=== PATIENT | female | born 1955 | race Two or more races ===

== ENCOUNTER 2016-11-01 00:03 | Emergency (ER) | payer MEDICARE, MEDICAID ==
[~2016-11-01 00:03] MED LIST: /GLIM4TA; /GLIM4TA PO; /LANS30GR; /ONDA4TA; /PRAV20TA OR; ACET500C; ACTO30TA; ACTO30TA PO; ALLO300T; ALLO300T PO; BABY81CH; BYETTA SC; BYETTA SQ; BYSTOLIC; CETI10TA PO; DIOV160T5 OR; GLUC850T; GLUC850T PO; HYDR25TA6; INSULANT; INSULANT SC; LISI40TA; LISI40TA OR; LISI40TA PO; LYRI75CA; MAGN500T2; NITR0.4S; PAXI40TA; PREG25CA; PREV15CA; PRIL40CA PO; SIMV80TA; SIMV80TA PO; SLOWTAB OR; TRAM50TA2 PO; VICTOZA; WARF5VL PO; ZETI10TA; ZOCO80TA OR
[2016-11-01] MEDS ORDERED: KETOROLAC 30 MG/ML VIAL (J1885) As Ordered ONE (00:45)
[2016-11-01] MEDS ORDERED: dexameTHASONE 20 MG/5 ML VIAL (J1100) As Ordered ONE (03:08)
[2016-11-01] MEDS ORDERED: guaiFENesin DM LIQ 10ML UD As Ordered ONE (03:08)
--- NOTE | 2016-11-01 03:40 | EDDOCDS ---
Physician Documentation [facility] Name: Cecily Stewart Age: 61 yrs Sex: Female : 1955 Arrival Date: 11/01/2016 Time: 00:03 Bed 6 Private MD: Disposition: 11/01/16 02:50 Discharged to Home/Self Care. Impression: Acute bronchitis, Other arthritis. - Condition is Stable. - Prescriptions for dextromethorphan- guaifenesin 30-200 mg/5 mL Oral liquid - take 5 milliliter by ORAL route every 8 hours; 1 bottle. Prednisone 20 mg Oral Tablet - take 3 tablets by ORAL route once daily for 4 days; 12 tablet. - Medication Reconciliation, Local Pharmacy Hours form. - Follow up: Private Physician; When: Call to arrange an appointment; Reason: Recheck today's complaints. - Problem is an ongoing problem. - Symptoms have improved. Historical: - Allergies: no known allergies; - Home Meds: 1. allopurinol 300 mg Oral tab 1 tab once daily 2. Coreg 12.5 mg Oral tab 1 tab every 12 hours 3. fluoxetine 20 mg Oral cap 1 cap once daily 4. gabapentin 100 mg Oral cap twice a day 5. glimepiride 4 mg Oral tab 1 tab twice a day 6. hydrochlorothiazide 25 mg Oral tab 1 tab once daily 7. Lantus 100 unit/mL Sub-Q soln 90 unit twice a day 8. Novolog Mix 70-30 FlexPen 100 unit/mL (70-30) subcutaneous inpn twice a day 9. omeprazole 40 mg Oral cpDR 1 cap once daily 10. ropinirole 1 mg oral tab 1 tab nightly 11. simvastatin 80 mg Oral tab daily 12. Zyrtec 10 mg Oral tab 1 tab once daily - PMHx: born with one kidney; Diabetes - IDDM: controlled; DVT; Gout; Hypercholesterolemia; Hypertension; PE; UTI's, Frequent; - PSHx: none; - Social history: Smoking status: Patient states was never smoker of tobacco. No barriers to communication noted, The patient speaks fluent Korean. - Family history: Not pertinent. - : The pt / caregiver states he / she is not on anticoagulants. Home medication list is obtained from the patient. - Exposure Risk Screening:: None identified. Vital Signs: 11/01 00:16 BP 179 / 102 LA Supine (auto/reg); Pulse 95 MON; Resp 22 S; Temp 98.7(TE); Pulse Ox 96% cln on R/A; Weight 147.42 kg / 325.01 lbs (R); Height 5 ft. 6 in. (167.64 cm) (R); Pain 10/10; 01:14 BP 179 / 98 (auto/); mv5 01:14 Pulse 90 MON; Pulse Ox 93% ; mv5 01:29 BP 165 / 87 (auto/); mv5 01:29 Pulse 94 MON; Pulse Ox 93% ; mv5 01:44 BP 166 / 90 (auto/); mv5 01:44 Pulse 90 MON; Pulse Ox 95% ; mv5 00:16 Body Mass Index 52.46 (147.42 kg, 167.64 cm) cln MDM: 00:08 ECG WITH READING ER PHYS+CARDIAG ordered. EDMS 00:39 IV Saline Lock ordered. cs11 00:39 ketorolac 15 mg IVP once ordered. cs11 00:40 Chest, 2 View (pa\E\lat) Ordered. EDMS 00:40 D-Dimer Quant Ordered. EDMS 01:43 Financial registration complete. [facility] 02:08 [facility] Payment Agreement was scanned into [employer] and attached to record. [facility] 02:44 D-Dimer Quant Reviewed. cs11 02:49 Dexamethasone 10 mg IV at bolus once ordered. cs11 02:49 Dextromethorphan-Guaifenesin Liquid 10 mg-100 mg/5 mL 5 ml PO once ordered. cs11 Administered Medications: 00:48 Drug: ketorolac 15 mg [ketorolac 30 mg/mL (1 mL) injection solution (0.5 mL)] Route: mv5 IVP; Site: right forearm; 01:08 Follow up: Response: No Adverse Reaction mv5 03:16 Drug: Dexamethasone 10 mg [dexamethasone 4 mg/mL injection solution] Route: IV; Rate: mv5 bolus; Site: right forearm; 03:16 Drug: Dextromethorphan-Guaifenesin 5 ml [dextromethorphan-guaifenesin 10 mg-100 mg/5 mL mv5 oral liquid (5 mL)] Route: PO; 03:39 Follow up: Response: No Adverse Reaction mv5 Signatures: Dispatcher [employer] EDMS Iwona Pena RN RN mcp Schiff, Arian, DO DO cs11 Rachel Bacon Megan, RN RN mv5 The chart was reviewed and I authenticate all verbal orders and agree with the evaluation and treatment provided.Attachments: 02:08 [facility] Payment Agreement [facility] MTDD
--- NOTE | 2016-11-01 03:40 | EDDOCDS ---
Nurse's Notes [facility] Name: Cecily Stewart Age: 61 yrs Sex: Female : 1955 Arrival Date: 11/01/2016 Time: 00:03 Bed 6 Private MD: Diagnosis: Acute bronchitis;Other arthritis Presentation: 11/01 00:10 Presenting complaint: Patient states: Chest pain, ankles hurting, hands numb and hurt. [facility] Aspirin was not taken prior to arrival. Adult Sepsis Screening: The patient does not have new or worsening altered mentation. Patient's respiratory rate is less than 22. Systolic blood pressure is greater than 100. Patient has a qSOFA score of 0- Negative Sepsis Screen. Suicide/Homicide risk assessment- the patient denies having any suicidal and/or homicidal ideations and does not present with any other emotional, behavioral or mental health complaints. Status: Patient is not a in service coordinator or dependent. Transition of care: patient was not received from another setting of care. 00:10 Acuity: GEOVANNY Level 3 [facility] 00:10 Method Of Arrival: Walkin/Carried/Asstd [facility] Triage Assessment: 00:13 General: Appears uncomfortable, Behavior is cooperative. Pain: Location: chest, right mcp hand, left hand, right foot and left foot Pain currently is 10 out of 10 on a pain scale. HIV screening NA for this visit Offered previously. Neurological: No deficits noted. Cardiovascular: Chest pain is described as diffuse, radiates Does not radiate. episodes are intermittent began 3 days ago. Respiratory: Airway is patent Respiratory effort is even, unlabored. Derm: Skin is pink, warm & dry. Historical: - Allergies: no known allergies; - Home Meds: 1. allopurinol 300 mg Oral tab 1 tab once daily 2. Coreg 12.5 mg Oral tab 1 tab every 12 hours 3. fluoxetine 20 mg Oral cap 1 cap once daily 4. gabapentin 100 mg Oral cap twice a day 5. glimepiride 4 mg Oral tab 1 tab twice a day 6. hydrochlorothiazide 25 mg Oral tab 1 tab once daily 7. Lantus 100 unit/mL Sub-Q soln 90 unit twice a day 8. Novolog Mix 70-30 FlexPen 100 unit/mL (70-30) subcutaneous inpn twice a day 9. omeprazole 40 mg Oral cpDR 1 cap once daily 10. ropinirole 1 mg oral tab 1 tab nightly 11. simvastatin 80 mg Oral tab daily 12. Zyrtec 10 mg Oral tab 1 tab once daily - PMHx: born with one kidney; Diabetes - IDDM: controlled; DVT; Gout; Hypercholesterolemia; Hypertension; PE; UTI's, Frequent; - PSHx: none; - Social history: Smoking status: Patient states was never smoker of tobacco. No barriers to communication noted, The patient speaks fluent Bulgarian. - Family history: Not pertinent. - : The pt / caregiver states he / she is not on anticoagulants. Home medication list is obtained from the patient. - Exposure Risk Screening:: None identified. Screenin:25 Screening information is obtained from the patient. Fall risk: No risks identified. mv5 Assistance ADL's: requires no assistance with activities of daily living. Abuse/DV Screen: The patient / caregiver reports he/she is: not in a situation that causes fear, pain or injury. Nutritional screening: No deficits noted. home support is adequate. 03:37 Advance Directives: There is no active DNR order. mv5 Assessment: 00:25 General: Appears in no apparent distress, well nourished, Behavior is cooperative. mv5 Pain: Location: anterior aspect of right upper chest, right breast, right ankle, right Achilles, anterior aspect of right ankle, left lateral ankle, left Achilles, left medial ankle and anterior aspect of left ankle. Neurological: Level of Consciousness is awake, alert, confused, Oriented to person, place, time. Cardiovascular: Capillary refill < 3 seconds Heart tones S1 S2 Rhythm is sinus rhythm No ectopy. Derm: Skin is pink, warm & dry. 01:03 General: Pt medicated as ordered, will continue to monitor.. mv5 01:15 Reassessment: Patient states symptoms have improved. Reports chest pain has improved. mv5 Continues to c/o pain in ankles.. 01:51 General: Appears in no apparent distress, pt to xray and returned without incident.. mv5 03:16 General: Appears in no apparent distress, pt medicated as ordered. OOB to restroom mv5 independently with steady gait.. Vital Signs: 00:16 BP 179 / 102 LA Supine (auto/reg); Pulse 95 MON; Resp 22 S; Temp 98.7(TE); Pulse Ox 96% cln on R/A; Weight 147.42 kg (R); Height 5 ft. 6 in. (167.64 cm) (R); Pain 10/10; 01:14 BP 179 / 98 (auto/); mv5 01:14 Pulse 90 MON; Pulse Ox 93% ; mv5 01:29 BP 165 / 87 (auto/); mv5 01:29 Pulse 94 MON; Pulse Ox 93% ; mv5 01:44 BP 166 / 90 (auto/); mv5 01:44 Pulse 90 MON; Pulse Ox 95% ; mv5 00:16 Body Mass Index 52.46 (147.42 kg, 167.64 cm) cln Vitals: 00:14 Log In Time: November 01, 2016 at 00:05. [facility] ED Course: 00:04 Patient visited by Mary Suarez Reg. hs2 00:04 Patient moved to Waiting hs2 00:06 Patsy Fernández RN is Primary Nurse. sep 00:06 Arian Miller DO is Attending Physician. cs11 00:06 Patient visited by Arian Miller DO. cs11 00:06 Patient moved to 6 klarissa 00:11 Triage Initiated mcp 00:14 Patient visited by Iwona Pena RN. mcp 00:17 Patient visited by Anny Arellano PCA. cln 00:17 EKG done. (by ED staff). Reviewed by Arian Miller DO. cln 00:24 Patient visited by Patsy Fernández RN. mv5 00:25 The patient / caregiver is instructed regarding the plan of care and ED course. Cardiac mv5 monitor on. Pulse ox on. NIBP on. 00:25 Inserted saline lock: 20 gauge in right forearm and blood collected. The patient mv5 tolerated the procedure well. 01:03 Patient visited by Patsy Fernández RN. mv5 01:08 D-Dimer Quant Sent. mv5 01:51 Patient visited by Patsy Fernández RN. mv5 02:07 Patient name changed from Cecily\S\\S\Effner\S\ to Cecily\S\J\S\Effner. EDMS 02:08 [facility] Payment Agreement was scanned into [employer] and attached to record. [facility] 02:21 Patient visited by Patsy Fernández RN. mv5 03:37 Discontinued intact, bleeding controlled, pressure dressing applied, No mv5 redness/swelling at site. No procedures done that require assistance. Administered Medications: 00:48 Drug: ketorolac 15 mg [ketorolac 30 mg/mL (1 mL) injection solution (0.5 mL)] Route: mv5 IVP; Site: right forearm; 01:08 Follow up: Response: No Adverse Reaction mv5 03:16 Drug: Dexamethasone 10 mg [dexamethasone 4 mg/mL injection solution] Route: IV; Rate: mv5 bolus; Site: right forearm; 03:16 Drug: Dextromethorphan-Guaifenesin 5 ml [dextromethorphan-guaifenesin 10 mg-100 mg/5 mL mv5 oral liquid (5 mL)] Route: PO; 03:39 Follow up: Response: No Adverse Reaction mv5 Order Results: Lab Order: D-Dimer Quant; SPEC'M 17 00:12 Test: D-DIMER QUANT; Value: 366.2; Range: <500; Units: ng/ml; Status: F Outcome: 02:50 Discharge ordered by Provider. cs11 03:37 Discharge Assessment: Patient awake, alert and oriented x 3. No cognitive and/or mv5 functional deficits noted. Patient verbalized understanding of disposition instructions. patient administered narcotics - no. The following High Risk Discharge criteria are identified: None. Condition: stable. No special radiology studies were completed. Property sent home with patient. 03:39 Patient left the ED. mv5 Signatures: Dispatcher [employer] EDMarlene Joseph RN RN jan Peters, Mary, RN RN mcp Schiff, Craig, DO DO cs11 Rachel Bacon Hillary, Reg Reg hs2 Anny Arellano, APPLICATION PACKAGING SPECIALIST APPLICATION PACKAGING SPECIALIST Patsy Dunlap RN RN mv5 MTDD
--- NOTE | 2016-11-01 08:15 | REP ---
CHEST X-RAY: Two views. HISTORY: Cough. Comparison chest x-ray April 16, 2016. FINDINGS: EKG monitoring electrodes overlie the chest. There is a moderate dextroconvex thoracic scoliotic curve unchanged. The lungs are well inflated and clear. Pleural angles are sharp. Heart size is normal. Pulmonary vasculature is not increased. No other bony abnormality is seen. IMPRESSION: No active disease. Signed by Jhony Pond MD 11/01/2016 10:06 A
--- NOTE | 2016-11-01 09:04 | ECGEPIP ---
Stationary ECG Study [facility] - ED Test Date: 2016-11-01 Pat Name: NISHA PERALES Department: Room: - Gender: F [employer] Job Titles: roque : 1955 Requested By: THERESE DE LA GARZA Order Number: [id number] Reading MD: Lizbet Griffin Measurements Intervals [place] Rate: 94 P: 53 VA: 166 QRS: -40 QRSD: 101 T: 70 QT: 354 QTc: 444 Interpretive Statements SINUS RHYTHM MARKED LEFT AXIS DEVIATION PATTERN CONSISTENT WITH PULMONARY DISEASE NONSPECIFIC T-WAVE ABNORMALITY INCREASED RATE 04/16/16 Electronically Signed On 11-01-2016 9:03:41 EST by Lizbet Griffin
--- NOTE | 2016-11-03 04:40 | EDDOCDS ---
Physician Documentation [facility] Name: Cecily Stewart Age: 61 yrs Sex: Female : 1955 Arrival Date: 11/01/2016 Time: 00:03 Bed 6 Private MD: Disposition: 11/01/16 02:50 Discharged to Home/Self Care. Impression: Acute bronchitis, Other arthritis. - Condition is Stable. - Prescriptions for dextromethorphan- guaifenesin 30-200 mg/5 mL Oral liquid - take 5 milliliter by ORAL route every 8 hours; 1 bottle. Prednisone 20 mg Oral Tablet - take 3 tablets by ORAL route once daily for 4 days; 12 tablet. - Medication Reconciliation, Local Pharmacy Hours form. - Follow up: Private Physician; When: Call to arrange an appointment; Reason: Recheck today's complaints. - Problem is an ongoing problem. - Symptoms have improved. Historical: - Allergies: no known allergies; - Home Meds: 1. allopurinol 300 mg Oral tab 1 tab once daily 2. Coreg 12.5 mg Oral tab 1 tab every 12 hours 3. fluoxetine 20 mg Oral cap 1 cap once daily 4. gabapentin 100 mg Oral cap twice a day 5. glimepiride 4 mg Oral tab 1 tab twice a day 6. hydrochlorothiazide 25 mg Oral tab 1 tab once daily 7. Lantus 100 unit/mL Sub-Q soln 90 unit twice a day 8. Novolog Mix 70-30 FlexPen 100 unit/mL (70-30) subcutaneous inpn twice a day 9. omeprazole 40 mg Oral cpDR 1 cap once daily 10. ropinirole 1 mg oral tab 1 tab nightly 11. simvastatin 80 mg Oral tab daily 12. Zyrtec 10 mg Oral tab 1 tab once daily - PMHx: born with one kidney; Diabetes - IDDM: controlled; DVT; Gout; Hypercholesterolemia; Hypertension; PE; UTI's, Frequent; - PSHx: none; - Social history: Smoking status: Patient states was never smoker of tobacco. No barriers to communication noted, The patient speaks fluent Georgian. - Family history: Not pertinent. - : The pt / caregiver states he / she is not on anticoagulants. Home medication list is obtained from the patient. - Exposure Risk Screening:: None identified. Vital Signs: 11/01 00:16 BP 179 / 102 LA Supine (auto/reg); Pulse 95 MON; Resp 22 S; Temp 98.7(TE); Pulse Ox 96% cln on R/A; Weight 147.42 kg / 325.01 lbs (R); Height 5 ft. 6 in. (167.64 cm) (R); Pain 10/10; 01:14 BP 179 / 98 (auto/); mv5 01:14 Pulse 90 MON; Pulse Ox 93% ; mv5 01:29 BP 165 / 87 (auto/); mv5 01:29 Pulse 94 MON; Pulse Ox 93% ; mv5 01:44 BP 166 / 90 (auto/); mv5 01:44 Pulse 90 MON; Pulse Ox 95% ; mv5 00:16 Body Mass Index 52.46 (147.42 kg, 167.64 cm) cln MDM: 00:08 ECG WITH READING ER PHYS+CARDIAG ordered. EDMS 00:39 IV Saline Lock ordered. cs11 00:39 ketorolac 15 mg IVP once ordered. cs11 00:40 Chest, 2 View (pa\E\lat) Ordered. EDMS 00:40 D-Dimer Quant Ordered. EDMS 01:43 Financial registration complete. [facility] 02:08 [facility] Payment Agreement was scanned into [employer] and attached to record. [facility] 02:44 D-Dimer Quant Reviewed. cs11 02:49 Dexamethasone 10 mg IV at bolus once ordered. cs11 02:49 Dextromethorphan-Guaifenesin Liquid 10 mg-100 mg/5 mL 5 ml PO once ordered. cs11 17:06 T-Sheet-- Draft Copy was scanned into [employer] and attached to record. klr 18:27 ECG/EKG was scanned into [employer] and attached to record. kf3 Administered Medications: 00:48 Drug: ketorolac 15 mg [ketorolac 30 mg/mL (1 mL) injection solution (0.5 mL)] Route: mv5 IVP; Site: right forearm; 01:08 Follow up: Response: No Adverse Reaction mv5 03:16 Drug: Dexamethasone 10 mg [dexamethasone 4 mg/mL injection solution] Route: IV; Rate: mv5 bolus; Site: right forearm; 03:16 Drug: Dextromethorphan-Guaifenesin 5 ml [dextromethorphan-guaifenesin 10 mg-100 mg/5 mL mv5 oral liquid (5 mL)] Route: PO; 03:39 Follow up: Response: No Adverse Reaction mv5 Signatures: Dispatcher [employer] Iwona Lewis, RN RN Brian Caruso, Reg Reg kf3 Arian Miller, DO cs11 Rachel Bacon [facility] Yeny Nino Megan, RN RN mv5 The chart was reviewed and I authenticate all verbal orders and agree with the evaluation and treatment provided.Attachments: 02:08 [facility] Payment Agreement [facility] 17:06 T-Sheet-- Draft Copy r 18:27 ECG/EKG kf3 Chart Complete MTDD
--- NOTE | 2016-11-03 04:40 | EDDOCDS ---
Nurse's Notes [facility] Name: Cecily Perales Age: 61 yrs Sex: Female : 1955 Arrival Date: 11/01/2016 Time: 00:03 Bed 6 Private MD: Diagnosis: Acute bronchitis;Other arthritis Presentation: 11/01 00:10 Presenting complaint: Patient states: Chest pain, ankles hurting, hands numb and hurt. [facility] Aspirin was not taken prior to arrival. Adult Sepsis Screening: The patient does not have new or worsening altered mentation. Patient's respiratory rate is less than 22. Systolic blood pressure is greater than 100. Patient has a qSOFA score of 0- Negative Sepsis Screen. Suicide/Homicide risk assessment- the patient denies having any suicidal and/or homicidal ideations and does not present with any other emotional, behavioral or mental health complaints. Status: Patient is not a real estate services coordinator or dependent. Transition of care: patient was not received from another setting of care. 00:10 Acuity: GEOVANNY Level 3 [facility] 00:10 Method Of Arrival: Walkin/Carried/Asstd [facility] Triage Assessment: 00:13 General: Appears uncomfortable, Behavior is cooperative. Pain: Location: chest, right mcp hand, left hand, right foot and left foot Pain currently is 10 out of 10 on a pain scale. HIV screening NA for this visit Offered previously. Neurological: No deficits noted. Cardiovascular: Chest pain is described as diffuse, radiates Does not radiate. episodes are intermittent began 3 days ago. Respiratory: Airway is patent Respiratory effort is even, unlabored. Derm: Skin is pink, warm & dry. Historical: - Allergies: no known allergies; - Home Meds: 1. allopurinol 300 mg Oral tab 1 tab once daily 2. Coreg 12.5 mg Oral tab 1 tab every 12 hours 3. fluoxetine 20 mg Oral cap 1 cap once daily 4. gabapentin 100 mg Oral cap twice a day 5. glimepiride 4 mg Oral tab 1 tab twice a day 6. hydrochlorothiazide 25 mg Oral tab 1 tab once daily 7. Lantus 100 unit/mL Sub-Q soln 90 unit twice a day 8. Novolog Mix 70-30 FlexPen 100 unit/mL (70-30) subcutaneous inpn twice a day 9. omeprazole 40 mg Oral cpDR 1 cap once daily 10. ropinirole 1 mg oral tab 1 tab nightly 11. simvastatin 80 mg Oral tab daily 12. Zyrtec 10 mg Oral tab 1 tab once daily - PMHx: born with one kidney; Diabetes - IDDM: controlled; DVT; Gout; Hypercholesterolemia; Hypertension; PE; UTI's, Frequent; - PSHx: none; - Social history: Smoking status: Patient states was never smoker of tobacco. No barriers to communication noted, The patient speaks fluent Nepali. - Family history: Not pertinent. - : The pt / caregiver states he / she is not on anticoagulants. Home medication list is obtained from the patient. - Exposure Risk Screening:: None identified. Screenin:25 Screening information is obtained from the patient. Fall risk: No risks identified. mv5 Assistance ADL's: requires no assistance with activities of daily living. Abuse/DV Screen: The patient / caregiver reports he/she is: not in a situation that causes fear, pain or injury. Nutritional screening: No deficits noted. home support is adequate. 03:37 Advance Directives: There is no active DNR order. mv5 Assessment: 00:25 General: Appears in no apparent distress, well nourished, Behavior is cooperative. mv5 Pain: Location: anterior aspect of right upper chest, right breast, right ankle, right Achilles, anterior aspect of right ankle, left lateral ankle, left Achilles, left medial ankle and anterior aspect of left ankle. Neurological: Level of Consciousness is awake, alert, confused, Oriented to person, place, time. Cardiovascular: Capillary refill < 3 seconds Heart tones S1 S2 Rhythm is sinus rhythm No ectopy. Derm: Skin is pink, warm & dry. 01:03 General: Pt medicated as ordered, will continue to monitor.. mv5 01:15 Reassessment: Patient states symptoms have improved. Reports chest pain has improved. mv5 Continues to c/o pain in ankles.. 01:51 General: Appears in no apparent distress, pt to xray and returned without incident.. mv5 03:16 General: Appears in no apparent distress, pt medicated as ordered. OOB to restroom mv5 independently with steady gait.. Vital Signs: 00:16 BP 179 / 102 LA Supine (auto/reg); Pulse 95 MON; Resp 22 S; Temp 98.7(TE); Pulse Ox 96% cln on R/A; Weight 147.42 kg (R); Height 5 ft. 6 in. (167.64 cm) (R); Pain 10/10; 01:14 BP 179 / 98 (auto/); mv5 01:14 Pulse 90 MON; Pulse Ox 93% ; mv5 01:29 BP 165 / 87 (auto/); mv5 01:29 Pulse 94 MON; Pulse Ox 93% ; mv5 01:44 BP 166 / 90 (auto/); mv5 01:44 Pulse 90 MON; Pulse Ox 95% ; mv5 00:16 Body Mass Index 52.46 (147.42 kg, 167.64 cm) cln Vitals: 00:14 Log In Time: November 01, 2016 at 00:05. [facility] ED Course: 00:04 Patient visited by Mary Suarez Reg. hs2 00:04 Patient moved to Waiting hs2 00:06 Patsy Fernández RN is Primary Nurse. sep 00:06 Arian De La Garza DO is Attending Physician. cs11 00:06 Patient visited by Arian De La Garza DO. cs11 00:06 Patient moved to 6 klarissa 00:11 Triage Initiated mcp 00:14 Patient visited by Iwona Pena RN. mcp 00:17 Patient visited by Anny Arellano PCA. cln 00:17 EKG done. (by ED staff). Reviewed by Arian De La Garza DO. cln 00:24 Patient visited by Patsy Fernández RN. mv5 00:25 The patient / caregiver is instructed regarding the plan of care and ED course. Cardiac mv5 monitor on. Pulse ox on. NIBP on. 00:25 Inserted saline lock: 20 gauge in right forearm and blood collected. The patient mv5 tolerated the procedure well. 01:03 Patient visited by Patsy Fernández RN. mv5 01:08 D-Dimer Quant Sent. mv5 01:51 Patient visited by Patsy Fernández RN. mv5 02:07 Patient name changed from Cecily\S\\S\Effner\S\ to Cecily\S\J\S\Effner. EDMS 02:08 REPLACED BY [facility] Payment Agreement was scanned into [employer] and attached to record. [facility] 02:21 Patient visited by Patsy Fernández RN. mv5 03:37 Discontinued intact, bleeding controlled, pressure dressing applied, No mv5 redness/swelling at site. No procedures done that require assistance. 08:49 Chest, 2 View (pa\E\lat) Returned. EDMS 09:23 EKG-ADULT Returned. EDMS 17:06 T-Sheet-- Draft Copy was scanned into [employer] and attached to record. klr 18:27 ECG/EKG was scanned into [employer] and attached to record. kf3 Administered Medications: 00:48 Drug: ketorolac 15 mg [ketorolac 30 mg/mL (1 mL) injection solution (0.5 mL)] Route: mv5 IVP; Site: right forearm; 01:08 Follow up: Response: No Adverse Reaction mv5 03:16 Drug: Dexamethasone 10 mg [dexamethasone 4 mg/mL injection solution] Route: IV; Rate: mv5 bolus; Site: right forearm; 03:16 Drug: Dextromethorphan-Guaifenesin 5 ml [dextromethorphan-guaifenesin 10 mg-100 mg/5 mL mv5 oral liquid (5 mL)] Route: PO; 03:39 Follow up: Response: No Adverse Reaction mv5 Order Results: Lab Order: D-Dimer Quant; SPEC'M 11/01/16 00:12 Test: D-DIMER QUANT; Value: 366.2; Range: <500; Units: ng/ml; Status: F Radiology Order: EKG-ADULT Test: EKG-ADULT REASON FOR EXAMINATION: Chest Pain; Stationary ECG Study; [facility] - ED; ; Test Date: 2016-11-01; Pat Name: CECILY PERALES Department:; Room: -; Gender: F 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; : 1955 Requested By: ARIAN DE LA GARZA; Order Number: [id number] Reading MD: Lizbet Griffin; Measurements; Intervals [place]; Rate: 94 P: 53; TN: 166 QRS: -40; QRSD: 101 T: 70; QT: 354; QTc: 444; Interpretive Statements; SINUS RHYTHM; MARKED LEFT AXIS DEVIATION; PATTERN CONSISTENT WITH PULMONARY DISEASE; NONSPECIFIC T-WAVE ABNORMALITY; INCREASED RATE 04/16/16; Electronically Signed On 11-01-2016 9:03:41 EST by Lizbet Griffin; Radiology Order: Chest, 2 View (pa\E\lat) Test: Chest, 2 View (pa\E\lat) REASON FOR EXAMINATION: Cough; CHEST X-RAY: Two views.; ; HISTORY: Cough.; ; Comparison chest x-ray April 16, 2016.; ; FINDINGS: EKG monitoring electrodes overlie the chest. There is a moderate; dextroconvex thoracic scoliotic curve unchanged. The lungs are well inflated and; clear. Pleural angles are sharp. Heart size is normal. Pulmonary vasculature; is not increased. No other bony abnormality is seen.; ; IMPRESSION: No active disease.; ; ; Signed by; Jhony Pond MD 11/01/2016 10:06 A; Outcome: 02:50 Discharge ordered by Provider. cs11 03:37 Discharge Assessment: Patient awake, alert and oriented x 3. No cognitive and/or mv5 functional deficits noted. Patient verbalized understanding of disposition instructions. patient administered narcotics - no. The following High Risk Discharge criteria are identified: None. Condition: stable. No special radiology studies were completed. Property sent home with patient. 03:39 Patient left the ED. mv5 Signatures: Dispatcher [employer] EDMS Marlene Lee RN RN jan Peters, Mary, RN RN mcp Fiddler, Kris, Reg Reg kf3 Arian De La Garza, DO cs11 Rachel Bacon Hillary, Reg Reg hs2 Anny Arellano, DADA FIELD KILN BURNER Yeny Benavides MeganRN RN mv5 Chart Complete MTDD
--- NOTE | 2016-11-03 04:40 | EDDOCDS ---
Physician Documentation [facility] Name: Cecily Stewart Age: 61 yrs Sex: Female : 1955 Arrival Date: 11/01/2016 Time: 00:03 Bed 6 Private MD: Disposition: 11/01/16 02:50 Discharged to Home/Self Care. Impression: Acute bronchitis, Other arthritis. - Condition is Stable. - Prescriptions for dextromethorphan- guaifenesin 30-200 mg/5 mL Oral liquid - take 5 milliliter by ORAL route every 8 hours; 1 bottle. Prednisone 20 mg Oral Tablet - take 3 tablets by ORAL route once daily for 4 days; 12 tablet. - Medication Reconciliation, Local Pharmacy Hours form. - Follow up: Private Physician; When: Call to arrange an appointment; Reason: Recheck today's complaints. - Problem is an ongoing problem. - Symptoms have improved. Historical: - Allergies: no known allergies; - Home Meds: 1. allopurinol 300 mg Oral tab 1 tab once daily 2. Coreg 12.5 mg Oral tab 1 tab every 12 hours 3. fluoxetine 20 mg Oral cap 1 cap once daily 4. gabapentin 100 mg Oral cap twice a day 5. glimepiride 4 mg Oral tab 1 tab twice a day 6. hydrochlorothiazide 25 mg Oral tab 1 tab once daily 7. Lantus 100 unit/mL Sub-Q soln 90 unit twice a day 8. Novolog Mix 70-30 FlexPen 100 unit/mL (70-30) subcutaneous inpn twice a day 9. omeprazole 40 mg Oral cpDR 1 cap once daily 10. ropinirole 1 mg oral tab 1 tab nightly 11. simvastatin 80 mg Oral tab daily 12. Zyrtec 10 mg Oral tab 1 tab once daily - PMHx: born with one kidney; Diabetes - IDDM: controlled; DVT; Gout; Hypercholesterolemia; Hypertension; PE; UTI's, Frequent; - PSHx: none; - Social history: Smoking status: Patient states was never smoker of tobacco. No barriers to communication noted, The patient speaks fluent Portuguese. - Family history: Not pertinent. - : The pt / caregiver states he / she is not on anticoagulants. Home medication list is obtained from the patient. - Exposure Risk Screening:: None identified. Vital Signs: 11/01 00:16 BP 179 / 102 LA Supine (auto/reg); Pulse 95 MON; Resp 22 S; Temp 98.7(TE); Pulse Ox 96% cln on R/A; Weight 147.42 kg / 325.01 lbs (R); Height 5 ft. 6 in. (167.64 cm) (R); Pain 10/10; 01:14 BP 179 / 98 (auto/); mv5 01:14 Pulse 90 MON; Pulse Ox 93% ; mv5 01:29 BP 165 / 87 (auto/); mv5 01:29 Pulse 94 MON; Pulse Ox 93% ; mv5 01:44 BP 166 / 90 (auto/); mv5 01:44 Pulse 90 MON; Pulse Ox 95% ; mv5 00:16 Body Mass Index 52.46 (147.42 kg, 167.64 cm) cln MDM: 00:08 ECG WITH READING ER PHYS+CARDIAG ordered. EDMS 00:39 IV Saline Lock ordered. cs11 00:39 ketorolac 15 mg IVP once ordered. cs11 00:40 Chest, 2 View (pa\E\lat) Ordered. EDMS 00:40 D-Dimer Quant Ordered. EDMS 01:43 Financial registration complete. [facility] 02:08 [facility] Payment Agreement was scanned into [employer] and attached to record. [facility] 02:44 D-Dimer Quant Reviewed. cs11 02:49 Dexamethasone 10 mg IV at bolus once ordered. cs11 02:49 Dextromethorphan-Guaifenesin Liquid 10 mg-100 mg/5 mL 5 ml PO once ordered. cs11 17:06 T-Sheet-- Draft Copy was scanned into [employer] and attached to record. klr 18:27 ECG/EKG was scanned into [employer] and attached to record. kf3 Administered Medications: 00:48 Drug: ketorolac 15 mg [ketorolac 30 mg/mL (1 mL) injection solution (0.5 mL)] Route: mv5 IVP; Site: right forearm; 01:08 Follow up: Response: No Adverse Reaction mv5 03:16 Drug: Dexamethasone 10 mg [dexamethasone 4 mg/mL injection solution] Route: IV; Rate: mv5 bolus; Site: right forearm; 03:16 Drug: Dextromethorphan-Guaifenesin 5 ml [dextromethorphan-guaifenesin 10 mg-100 mg/5 mL mv5 oral liquid (5 mL)] Route: PO; 03:39 Follow up: Response: No Adverse Reaction mv5 Signatures: Dispatcher [employer] Iwona Lewis, RN RN Brian Caruso, Reg Reg kf3 Arian Miller, DO cs11 Rachel Bacon [facility] Yeny Nino Megan, RN RN mv5 The chart was reviewed and I authenticate all verbal orders and agree with the evaluation and treatment provided.Attachments: 02:08 [id number] Payment Agreement [facility] 17:06 T-Sheet-- Draft Copy r 18:27 ECG/EKG kf3 Chart Complete MTDD
== END 2016-11-01 03:39 | disposition home or self-care (01) ==
LOC: M ED 00:03
DX: J20.9 Acute bronchitis, unspecified (principal); M19.90 Unspecified osteoarthritis, unspecified site; M10.9 Gout, unspecified; E78.00 Pure hypercholesterolemia, unspecified; I10 Essential (primary) hypertension; E11.9 Type 2 diabetes mellitus without complications; Q60.0 Renal agenesis, unilateral; Z87.440 Personal history of urinary (tract) infections; Z86.718 Personal history of other venous thrombosis and embolism; Z79.4 Long term (current) use of insulin; Z79.899 Other long term (current) drug therapy
CPT/HCPCS: 36415; 71020; 85379; 93005; 96374; 96375; 99284; J1100; J1885

== ENCOUNTER → 2016-11-05 | Outpatient (REF) | payer MEDICARE, MEDICAID ==
[2016-11-05 17:53] LABS: ALBUMIN 3.2 GM/DL (3.2-5.2); ALBUMIN/GLOBULIN RATIO 0.86 (1.00-1.93); BILIRUBIN,TOTAL 0.4 MG/DL (0.2-1.0); CALCIUM LEVEL 9.1 MG/DL (8.8-10.2); CREATININE FOR GFR 1.56 MG/DL (0.55-1.02); GLOMERULAR FILTRATION RATE 35.9 (>45); MAGNESIUM LEVEL 1.4 MG/DL (1.8-2.4); POTASSIUM SERUM 4.5 MEQ/L (3.5-5.1); TOTAL PROTEIN 6.9 GM/DL (6.4-8.2)
== END ==
LOC: M SFHCPLAZ 14:45
PROVIDERS: ATTEND Family Medicine
DX: N18.3 Chronic kidney disease, stage 3 (moderate) (principal); E11.22 Type 2 diabetes mellitus with diabetic chronic kidney disease; R20.0 Anesthesia of skin; E55.9 Vitamin D deficiency, unspecified
CPT/HCPCS: 36415; 80053; 82043; 82306; 82607; 83036; 83735; G0463

== ENCOUNTER 2016-11-08 18:11 | Emergency (ER) | payer MEDICARE, MEDICAID ==
[2016-11-08] MEDS ORDERED: NORCO, ANEXSIA 5/325MG TABLET (HYDROcodone/ACETAMINOPHEN) As Ordered ONE (18:59)
--- NOTE | 2016-11-08 20:29 | EDDOCDS ---
Physician Documentation [facility] Name: Cecily Stewart Age: 61 yrs Sex: Female : 1955 Arrival Date: 11/08/2016 Time: 18:11 Bed TR8 Private MD: NO PRIMARY PHYSICIAN, . Disposition: 11/08/16 19:50 Discharged to Home/Self Care. Impression: Calcaneal spur - bilateral. - Condition is Stable. - Discharge Instructions: Foot Contusion, Heel Spur. - Medication Reconciliation, Local Pharmacy Hours form. - Follow up: Abiodun Weaver DPM; When: Call to arrange an appointment; Reason: Recheck today's complaints, Continuance of care. Follow up: Geoffrey Bone DPM; When: Call to arrange an appointment; Reason: Recheck today's complaints, Continuance of care. - Problem is an ongoing problem. - Symptoms are unchanged. Historical: - Allergies: no known allergies; - Home Meds: 1. allopurinol 300 mg Oral tab 1 tab once daily 2. Coreg 12.5 mg Oral tab 1 tab every 12 hours 3. fluoxetine 20 mg Oral cap 1 cap once daily 4. gabapentin 100 mg Oral cap twice a day 5. glimepiride 4 mg Oral tab 1 tab twice a day 6. hydrochlorothiazide 25 mg Oral tab 1 tab once daily 7. Lantus 100 unit/mL Sub-Q soln 90 unit twice a day 8. Novolog Mix 70-30 FlexPen 100 unit/mL (70-30) subcutaneous inpn twice a day 9. omeprazole 40 mg Oral cpDR 1 cap once daily 10. ropinirole 1 mg oral tab 1 tab nightly 11. simvastatin 80 mg Oral tab daily 12. Zyrtec 10 mg Oral tab 1 tab once daily - PMHx: born with one kidney; Diabetes - IDDM: controlled; DVT; Gout; Hypercholesterolemia; Hypertension; UTI's, Frequent; PE; - PSHx: none; - Social history: Smoking status: Patient states former smoker of tobacco. No barriers to communication noted, The patient speaks fluent [place], Speaks appropriately for age. - Family history: Not pertinent. - : The pt / caregiver states he / she is not on anticoagulants. Home medication list is obtained from the patient. - Exposure Risk Screening:: None identified. Vital Signs: 11/08 18:12 BP 151 / 79; Pulse 77; Resp 16; Temp 96.9; Pulse Ox 95% ; Weight 149.69 kg / 330.01 elp lbs; Height 5 ft. 6 in. (167.64 cm); 20:21 BP 140 / 73; Pulse 82; Resp 18 S; Temp 96.2(O); Pulse Ox 97% on R/A; Pain 9/10; jp4 18:12 Body Mass Index 53.26 (149.69 kg, 167.64 cm) elp MDM: 18:58 Foot, Complete Ordered. EDMS 18:58 HYDROcodone-acetaminophen 5 mg-325 mg 1 tabs PO once ordered. mo1 19:20 Financial registration complete. zo Administered Medications: 19:02 Drug: HYDROcodone-acetaminophen 1 tabs [hydrocodone 5 mg-acetaminophen 325 mg tablet (1 ck1 tabs)] Route: PO; Signatures: Dispatcher [employer] EDMS Leoncio Simental RN RN mlb1 Nicole Gifford Rosemary, RN RN rs3 Leoncio Patton PA PA mo1 Deedee Mills RN ck1 MTDD
--- NOTE | 2016-11-08 20:30 | EDDOCDS ---
Nurse's Notes [facility] Name: Cecily Stewart Age: 61 yrs Sex: Female : 1955 Arrival Date: 11/08/2016 Time: 18:11 Bed TR8 Private MD: NO PRIMARY PHYSICIAN, . Diagnosis: Calcaneal spur-bilateral Presentation: 11/08 18:17 Presenting complaint: Patient states: Bilateral foot pain began two weeks ago no known mlb1 injury. Adult Sepsis Screening: The patient does not have new or worsening altered mentation. Patient's respiratory rate is less than 22. Systolic blood pressure is greater than 100. Patient has a qSOFA score of 0- Negative Sepsis Screen. Suicide/Homicide risk assessment- the patient denies having any suicidal and/or homicidal ideations and does not present with any other emotional, behavioral or mental health complaints. Status: Patient is not a staff services manager or dependent. Transition of care: patient was not received from another setting of care. 18:17 Acuity: GEOVANNY Level 4 mlb1 18:17 Method Of Arrival: Walkin/Carried/Asstd mlb1 Triage Assessment: 18:20 General: Appears in no apparent distress, Behavior is appropriate for age, cooperative. mlb1 Pain: Location: right foot and left foot Pain currently is 10 out of 10 on a pain scale. HIV screening NA for this visit Offered previously. Historical: - Allergies: no known allergies; - Home Meds: 1. allopurinol 300 mg Oral tab 1 tab once daily 2. Coreg 12.5 mg Oral tab 1 tab every 12 hours 3. fluoxetine 20 mg Oral cap 1 cap once daily 4. gabapentin 100 mg Oral cap twice a day 5. glimepiride 4 mg Oral tab 1 tab twice a day 6. hydrochlorothiazide 25 mg Oral tab 1 tab once daily 7. Lantus 100 unit/mL Sub-Q soln 90 unit twice a day 8. Novolog Mix 70-30 FlexPen 100 unit/mL (70-30) subcutaneous inpn twice a day 9. omeprazole 40 mg Oral cpDR 1 cap once daily 10. ropinirole 1 mg oral tab 1 tab nightly 11. simvastatin 80 mg Oral tab daily 12. Zyrtec 10 mg Oral tab 1 tab once daily - PMHx: born with one kidney; Diabetes - IDDM: controlled; DVT; Gout; Hypercholesterolemia; Hypertension; UTI's, Frequent; PE; - PSHx: none; - Social history: Smoking status: Patient states former smoker of tobacco. No barriers to communication noted, The patient speaks fluent [place] Citizen, Speaks appropriately for age. - Family history: Not pertinent. - : The pt / caregiver states he / she is not on anticoagulants. Home medication list is obtained from the patient. - Exposure Risk Screening:: None identified. Screenin:02 Screening information is obtained from the patient. Fall risk: No risks identified. ck1 Assistance ADL's: requires no assistance with activities of daily living. Abuse/DV Screen: The patient / caregiver reports he/she is: not in a situation that causes fear, pain or injury. Nutritional screening: No deficits noted. Advance Directives: Currently, there is no health care proxy. home support is adequate. Assessment: 19:03 General: Appears in no apparent distress, comfortable, Behavior is appropriate for age, ck1 cooperative. Pain: Location: right foot and left foot Pain currently is 10 out of 10 on a pain scale. Derm: Skin is intact, is healthy with good turgor, Skin is pink, warm & dry. Musculoskeletal: Circulation, motion, and sensation intact Range of motion intact in all extremities. Vital Signs: 18:12 BP 151 / 79; Pulse 77; Resp 16; Temp 96.9; Pulse Ox 95% ; Weight 149.69 kg; Height 5 elp ft. 6 in. (167.64 cm); 20:21 BP 140 / 73; Pulse 82; Resp 18 S; Temp 96.2(O); Pulse Ox 97% on R/A; Pain 9/10; jp4 18:12 Body Mass Index 53.26 (149.69 kg, 167.64 cm) [facility] Vitals: 18:12 Log In Time: November 08, 2016 at 18:10. [facility] ED Course: 18:11 Patient visited by Yennifer Arango PCA. elp 18:11 Patient moved to Waiting elp 18:12 NO PRIMARY PHYSICIAN, . is Private Physician. elp 18:13 Patient moved to Pre RCE elp 18:17 Patient visited by Leoncio Simental, RN. mlb1 18:19 Triage Initiated mlb1 18:20 Patient visited by Leoncio Simental, RN. mlb1 18:38 Patient moved to Triage 3 mlb1 18:44 [facility] Patton [facility] mo1 18:44 Patti Zhong MD is Attending Physician. mo1 18:58 Patient visited by Deedee Mills,JAVY. ck1 18:59 Patient visited by Leoncio Patton PA. mo1 19:02 Patient moved to TR1 ck1 19:03 The patient / caregiver is instructed regarding the plan of care and ED course. ck1 19:49 Abiodun Weaver DPM is Referral Physician. mo1 19:49 Geoffrey Bone DPM is Referral Physician. mo1 20:01 Patient moved to PR1 / 25 rs3 20:03 Patient moved to TR5 ttb 20:12 Patient moved to PR1 / 25 ttb 20:21 Patient visited by Dilan Bhakta. jp4 20:24 Patient moved to TR6 rs3 20:27 No IV's were initiated during this patient's visit. No procedures done that require rs3 assistance. 20:28 Patient moved to TR8 ajs Administered Medications: 19:02 Drug: HYDROcodone-acetaminophen 1 tabs [hydrocodone 5 mg-acetaminophen 325 mg tablet (1 ck1 tabs)] Route: PO; Order Results: There are currently no results for this order. Outcome: 19:50 Discharge ordered by Provider. mo1 20:27 Discharge Assessment: patient administered narcotics - no. The following High Risk [facility] Discharge criteria are identified: None. Discharged to home cab. Condition: stable. Discharge instructions given to patient, Instructed on discharge instructions, follow up and referral plans. medication usage, Demonstrated understanding of instructions, medications, Pt was receptive of discharge instructions/ teaching. No special radiology studies were completed. Property :Personal belongings accompany Pt. 20:28 Patient left the ED. rs3 Signatures: Leoncio Simental RN RN mlb1 Deedee Mills,RN RN ck1 Lety English RN RN rs3 Roxana Mosqueda Teresa, RN RN ttb Leoncio Patton PA PA mo1 Patchen, Yennifer, TRADE RECRUITER TRADE RECRUITER elp Dilan Bhakta jp4 Corrections: (The following items were deleted from the chart) 20:28 20:27 The following High Risk Discharge criteria are identified: None. Discharged to [facility] home with family, rs3 MTDD
--- NOTE | 2016-11-09 11:09 | REP ---
BILATERAL FOOT SERIES COMPLETE: 11/08/2016. Comparison: 05/10/2007. Clinical history: Nontraumatic foot pain. Left foot: The four view shows some mild degenerative changes at the first MTP joint. IP joints show degenerative changes greatest at the PIP joint of the third toe. Tarsal articulations with some minor degenerative changes. There is a prominent plantar calcaneal spur and a tiny Achilles insertion spur. Minor soft tissue swelling distal forefoot. Subtalar joints intact. No fracture, avulsion or erosion. Right foot: There are degenerative changes with narrowing and spur formation at the first MTP joint greater than the left side. IP joints show degenerative changes to a lesser degree. The other MTP joints grossly intact. Metatarsals show no fracture, avulsion or erosion. Tarsal bones and their articulations with only minimal degenerative change. Prominent plantar calcaneal spur with tiny Achilles insertional spur also seen. Impression: 1. Bilateral osteoarthritis first MTP joint and to a lesser extent other IP, TMT and tarsal articulations with plantar calcaneal spur and some swelling. This is bilateral. Slightly worse MTP arthritis great toe right than left. 2. Small Achilles insertion spurs and symmetric large plantar spurs unchanged. 3. No acute fracture or destructive lesion. Signed by Pedro Landis MD 11/09/2016 07:02 P
--- NOTE | 2016-11-10 21:29 | EDDOCDS ---
Physician Documentation [facility] Name: Cecily Stewart Age: 61 yrs Sex: Female : 1955 Arrival Date: 11/08/2016 Time: 18:11 Bed TR8 Private MD: NO PRIMARY PHYSICIAN, . Disposition: 11/08/16 19:50 Discharged to Home/Self Care. Impression: Calcaneal spur - bilateral. - Condition is Stable. - Discharge Instructions: Foot Contusion, Heel Spur. - Medication Reconciliation, Local Pharmacy Hours form. - Follow up: Abiodun Weaver DPM; When: Call to arrange an appointment; Reason: Recheck today's complaints, Continuance of care. Follow up: Geoffrey Bone DPM; When: Call to arrange an appointment; Reason: Recheck today's complaints, Continuance of care. - Problem is an ongoing problem. - Symptoms are unchanged. Historical: - Allergies: no known allergies; - Home Meds: 1. allopurinol 300 mg Oral tab 1 tab once daily 2. Coreg 12.5 mg Oral tab 1 tab every 12 hours 3. fluoxetine 20 mg Oral cap 1 cap once daily 4. gabapentin 100 mg Oral cap twice a day 5. glimepiride 4 mg Oral tab 1 tab twice a day 6. hydrochlorothiazide 25 mg Oral tab 1 tab once daily 7. Lantus 100 unit/mL Sub-Q soln 90 unit twice a day 8. Novolog Mix 70-30 FlexPen 100 unit/mL (70-30) subcutaneous inpn twice a day 9. omeprazole 40 mg Oral cpDR 1 cap once daily 10. ropinirole 1 mg oral tab 1 tab nightly 11. simvastatin 80 mg Oral tab daily 12. Zyrtec 10 mg Oral tab 1 tab once daily - PMHx: born with one kidney; Diabetes - IDDM: controlled; DVT; Gout; Hypercholesterolemia; Hypertension; UTI's, Frequent; PE; - PSHx: none; - Social history: Smoking status: Patient states former smoker of tobacco. No barriers to communication noted, The patient speaks fluent Belarusian, Speaks appropriately for age. - Family history: Not pertinent. - : The pt / caregiver states he / she is not on anticoagulants. Home medication list is obtained from the patient. - Exposure Risk Screening:: None identified. Vital Signs: 11/08 18:12 BP 151 / 79; Pulse 77; Resp 16; Temp 96.9; Pulse Ox 95% ; Weight 149.69 kg / 330.01 elp lbs; Height 5 ft. 6 in. (167.64 cm); 20:21 BP 140 / 73; Pulse 82; Resp 18 S; Temp 96.2(O); Pulse Ox 97% on R/A; Pain 9/10; jp4 18:12 Body Mass Index 53.26 (149.69 kg, 167.64 cm) elp MDM: 18:58 Foot, Complete Ordered. EDMS 18:58 HYDROcodone-acetaminophen 5 mg-325 mg 1 tabs PO once ordered. mo1 19:20 Financial registration complete. zo 20:57 [facility] Payment Agreement was scanned into [employer] and attached to record. ks16 11/09 18:44 T-Sheet-- Draft Copy was scanned into [employer] and attached to record. klr Administered Medications: 11/08 19:02 Drug: HYDROcodone-acetaminophen 1 tabs [hydrocodone 5 mg-acetaminophen 325 mg tablet (1 ck1 tabs)] Route: PO; Signatures: Dispatcher [employer] EDCT Leoncio Simental RN RN mlb1 Nicole Gifford RosemaryRN RN rs3 Leoncio Patton PA PA mo1 Migdalia Alfaro, Reg Reg ks16 Yeny Nino Connie RN ck1 The chart was reviewed and I authenticate all verbal orders and agree with the evaluation and treatment provided.Attachments: 20:57 [facility] Payment Agreement 16 11/09 18:44 T-Sheet-- Draft Copy klr Chart Complete MTDD
--- NOTE | 2016-11-10 21:29 | EDDOCDS ---
Nurse's Notes [facility] Name: Cecily Stewart Age: 61 yrs Sex: Female : 1955 Arrival Date: 11/08/2016 Time: 18:11 Bed TR8 Private MD: NO PRIMARY PHYSICIAN, . Diagnosis: Calcaneal spur-bilateral Presentation: 11/08 18:17 Presenting complaint: Patient states: Bilateral foot pain began two weeks ago no known mlb1 injury. Adult Sepsis Screening: The patient does not have new or worsening altered mentation. Patient's respiratory rate is less than 22. Systolic blood pressure is greater than 100. Patient has a qSOFA score of 0- Negative Sepsis Screen. Suicide/Homicide risk assessment- the patient denies having any suicidal and/or homicidal ideations and does not present with any other emotional, behavioral or mental health complaints. 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 Transition of care: patient was not received from another setting of care. 18:17 Acuity: GEOVANNY Level 4 mlb1 18:17 Method Of Arrival: Walkin/Carried/Asstd mlb1 Triage Assessment: 18:20 General: Appears in no apparent distress, Behavior is appropriate for age, cooperative. mlb1 Pain: Location: right foot and left foot Pain currently is 10 out of 10 on a pain scale. HIV screening NA for this visit Offered previously. Historical: - Allergies: no known allergies; - Home Meds: 1. allopurinol 300 mg Oral tab 1 tab once daily 2. Coreg 12.5 mg Oral tab 1 tab every 12 hours 3. fluoxetine 20 mg Oral cap 1 cap once daily 4. gabapentin 100 mg Oral cap twice a day 5. glimepiride 4 mg Oral tab 1 tab twice a day 6. hydrochlorothiazide 25 mg Oral tab 1 tab once daily 7. Lantus 100 unit/mL Sub-Q soln 90 unit twice a day 8. Novolog Mix 70-30 FlexPen 100 unit/mL (70-30) subcutaneous inpn twice a day 9. omeprazole 40 mg Oral cpDR 1 cap once daily 10. ropinirole 1 mg oral tab 1 tab nightly 11. simvastatin 80 mg Oral tab daily 12. Zyrtec 10 mg Oral tab 1 tab once daily - PMHx: born with one kidney; Diabetes - IDDM: controlled; DVT; Gout; Hypercholesterolemia; Hypertension; UTI's, Frequent; PE; - PSHx: none; - Social history: Smoking status: Patient states former smoker of tobacco. No barriers to communication noted, The patient speaks fluent Hong Konger, Speaks appropriately for age. - Family history: Not pertinent. - : The pt / caregiver states he / she is not on anticoagulants. Home medication list is obtained from the patient. - Exposure Risk Screening:: None identified. Screenin:02 Screening information is obtained from the patient. Fall risk: No risks identified. ck1 Assistance ADL's: requires no assistance with activities of daily living. Abuse/DV Screen: The patient / caregiver reports he/she is: not in a situation that causes fear, pain or injury. Nutritional screening: No deficits noted. Advance Directives: Currently, there is no health care proxy. home support is adequate. Assessment: 19:03 General: Appears in no apparent distress, comfortable, Behavior is appropriate for age, ck1 cooperative. Pain: Location: right foot and left foot Pain currently is 10 out of 10 on a pain scale. Derm: Skin is intact, is healthy with good turgor, Skin is pink, warm & dry. Musculoskeletal: Circulation, motion, and sensation intact Range of motion intact in all extremities. Vital Signs: 18:12 BP 151 / 79; Pulse 77; Resp 16; Temp 96.9; Pulse Ox 95% ; Weight 149.69 kg; Height 5 elp ft. 6 in. (167.64 cm); 20:21 BP 140 / 73; Pulse 82; Resp 18 S; Temp 96.2(O); Pulse Ox 97% on R/A; Pain 9/10; jp4 18:12 Body Mass Index 53.26 (149.69 kg, 167.64 cm) [facility] Vitals: 18:12 Log In Time: November 08, 2016 at 18:10. [facility] ED Course: 18:11 Patient visited by Yennifer Arango PCA. elp 18:11 Patient moved to Waiting elp 18:12 NO PRIMARY PHYSICIAN, . is Private Physician. elp 18:13 Patient moved to Pre RCE elp 18:17 Patient visited by Leoncio Simental, RN. mlb1 18:19 Triage Initiated mlb1 18:20 Patient visited by Leoncio Simental, RN. mlb1 18:38 Patient moved to Triage 3 mlb1 18:44 Leoncio Patton PA is PHCP. mo1 18:44 Patti Zhong MD is Attending Physician. mo1 18:58 Patient visited by Deedee Mills RN. ck1 18:59 Patient visited by Leoncio Patton PA. mo1 19:02 Patient moved to TR1 ck1 19:03 The patient / caregiver is instructed regarding the plan of care and ED course. ck1 19:49 Abiodun Weaver DPM is Referral Physician. mo1 19:49 Geoffrey Bone DPM is Referral Physician. mo1 20:01 Patient moved to PR1 / 25 rs3 20:03 Patient moved to TR5 ttb 20:12 Patient moved to PR1 / 25 ttb 20:21 Patient visited by Dilan Bhakta. jp4 20:24 Patient moved to TR6 rs3 20:27 No IV's were initiated during this patient's visit. No procedures done that require rs3 assistance. 20:28 Patient moved to TR8 ajs 20:57 [facility] Payment Agreement was scanned into [employer] and attached to record. ks16 02 11:11 Foot, Complete Returned. EDMS 18:44 T-Sheet-- Draft Copy was scanned into [employer] and attached to record. klr Administered Medications: 11/08 19:02 Drug: HYDROcodone-acetaminophen 1 tabs [hydrocodone 5 mg-acetaminophen 325 mg tablet (1 ck1 tabs)] Route: PO; Order Results: Radiology Order: Foot, Complete Test: Foot, Complete REASON FOR EXAMINATION: NON TRAUMATIC FOOT PAIN; BILATERAL FOOT SERIES COMPLETE: 11/08/2016.; ; Comparison: 05/10/2007.; ; Clinical history: Nontraumatic foot pain.; ; Left foot: The four view shows some mild degenerative changes at the first MTP; joint. IP joints show degenerative changes greatest at the PIP joint of the; third toe. Tarsal articulations with some minor degenerative changes. There is; a prominent plantar calcaneal spur and a tiny Achilles insertion spur. Minor; soft tissue swelling distal forefoot. Subtalar joints intact. No fracture,; avulsion or erosion.; ; Right foot: There are degenerative changes with narrowing and spur formation at; the first MTP joint greater than the left side. IP joints show degenerative; changes to a lesser degree. The other MTP joints grossly intact. Metatarsals; show no fracture, avulsion or erosion. Tarsal bones and their articulations with; only minimal degenerative change. Prominent plantar calcaneal spur with tiny; Achilles insertional spur also seen.; ; Impression:; ; 1. Bilateral osteoarthritis first MTP joint and to a lesser extent other IP, TMT; and tarsal articulations with plantar calcaneal spur and some swelling. This is; bilateral. Slightly worse MTP arthritis great toe right than left.; ; 2. Small Achilles insertion spurs and symmetric large plantar spurs unchanged.; ; 3. No acute fracture or destructive lesion.; ; ; Signed by; Pedro Landis MD 11/09/2016 07:02 P; Outcome: 19:50 Discharge ordered by Provider. mo1 20:27 Discharge Assessment: patient administered narcotics - no. The following High Risk [facility] Discharge criteria are identified: None. Discharged to home cab. Condition: stable. Discharge instructions given to patient, Instructed on discharge instructions, follow up and referral plans. medication usage, Demonstrated understanding of instructions, medications, Pt was receptive of discharge instructions/ teaching. No special radiology studies were completed. Property :Personal belongings accompany Pt. 20:28 Patient left the ED. 3 Signatures: Dispatcher [employer] EDMS Leoncio Simental RN RN mlb1 Deedee Mills,RN RN ck1 Lety English RN RN rs3 Roxana Mosqueda Teresa, RN RN ttb O'Hagan, Michael, PA PA mo1 Conchita, Yennifer, MERCHANDISE MARKER MERCHANDISE MARKER elp Livia, Dilan jp4 Migdalia Alfaro, Reg Reg ks16 Yeny Nino Corrections: (The following items were deleted from the chart) 20:28 20:27 The following High Risk Discharge criteria are identified: None. Discharged to [facility] home with family, rs3 Chart Complete MTDD
--- NOTE | 2016-11-10 21:29 | EDDOCDS ---
Physician Documentation [facility] Name: Cecily Stewart Age: 61 yrs Sex: Female : 1955 Arrival Date: 11/08/2016 Time: 18:11 Bed TR8 Private MD: NO PRIMARY PHYSICIAN, . Disposition: 11/08/16 19:50 Discharged to Home/Self Care. Impression: Calcaneal spur - bilateral. - Condition is Stable. - Discharge Instructions: Foot Contusion, Heel Spur. - Medication Reconciliation, Local Pharmacy Hours form. - Follow up: Abiodun Weaver DPM; When: Call to arrange an appointment; Reason: Recheck today's complaints, Continuance of care. Follow up: Geoffrey Bone DPM; When: Call to arrange an appointment; Reason: Recheck today's complaints, Continuance of care. - Problem is an ongoing problem. - Symptoms are unchanged. Historical: - Allergies: no known allergies; - Home Meds: 1. allopurinol 300 mg Oral tab 1 tab once daily 2. Coreg 12.5 mg Oral tab 1 tab every 12 hours 3. fluoxetine 20 mg Oral cap 1 cap once daily 4. gabapentin 100 mg Oral cap twice a day 5. glimepiride 4 mg Oral tab 1 tab twice a day 6. hydrochlorothiazide 25 mg Oral tab 1 tab once daily 7. Lantus 100 unit/mL Sub-Q soln 90 unit twice a day 8. Novolog Mix 70-30 FlexPen 100 unit/mL (70-30) subcutaneous inpn twice a day 9. omeprazole 40 mg Oral cpDR 1 cap once daily 10. ropinirole 1 mg oral tab 1 tab nightly 11. simvastatin 80 mg Oral tab daily 12. Zyrtec 10 mg Oral tab 1 tab once daily - PMHx: born with one kidney; Diabetes - IDDM: controlled; DVT; Gout; Hypercholesterolemia; Hypertension; UTI's, Frequent; PE; - PSHx: none; - Social history: Smoking status: Patient states former smoker of tobacco. No barriers to communication noted, The patient speaks fluent Hebrew, Speaks appropriately for age. - Family history: Not pertinent. - : The pt / caregiver states he / she is not on anticoagulants. Home medication list is obtained from the patient. - Exposure Risk Screening:: None identified. Vital Signs: 11/08 18:12 BP 151 / 79; Pulse 77; Resp 16; Temp 96.9; Pulse Ox 95% ; Weight 149.69 kg / 330.01 elp lbs; Height 5 ft. 6 in. (167.64 cm); 20:21 BP 140 / 73; Pulse 82; Resp 18 S; Temp 96.2(O); Pulse Ox 97% on R/A; Pain 9/10; jp4 18:12 Body Mass Index 53.26 (149.69 kg, 167.64 cm) elp MDM: 18:58 Foot, Complete Ordered. EDMS 18:58 HYDROcodone-acetaminophen 5 mg-325 mg 1 tabs PO once ordered. mo1 19:20 Financial registration complete. zo 20:57 [facility] Payment Agreement was scanned into [employer] and attached to record. ks16 11/09 18:44 T-Sheet-- Draft Copy was scanned into [employer] and attached to record. klr Administered Medications: 11/08 19:02 Drug: HYDROcodone-acetaminophen 1 tabs [hydrocodone 5 mg-acetaminophen 325 mg tablet (1 ck1 tabs)] Route: PO; Signatures: Dispatcher [employer] EDIL Leoncio Simental RN RN mlb1 Nicole Gifford RosemaryRN RN rs3 Leoncio Patton PA PA mo1 Migdalia Alfaro, Reg Reg ks16 Yeny Nino Connie RN ck1 The chart was reviewed and I authenticate all verbal orders and agree with the evaluation and treatment provided.Attachments: 20:57 [facility] Payment Agreement 16 11/09 18:44 T-Sheet-- Draft Copy klr Chart Complete MTDD
== END 2016-11-08 20:28 | disposition home or self-care (01) ==
LOC: M ED 18:11
DX: M77.32 Calcaneal spur, left foot (principal); M77.31 Calcaneal spur, right foot; E11.9 Type 2 diabetes mellitus without complications; M10.9 Gout, unspecified; E78.00 Pure hypercholesterolemia, unspecified; I10 Essential (primary) hypertension; Z87.440 Personal history of urinary (tract) infections; Z86.711 Personal history of pulmonary embolism; Z86.718 Personal history of other venous thrombosis and embolism; Q60.0 Renal agenesis, unilateral; Z79.4 Long term (current) use of insulin; Z79.899 Other long term (current) drug therapy

== ENCOUNTER → 2016-12-17 | Outpatient (CLI) | payer MEDICARE, MEDICAID ==
[~2016-12-17] MED LIST changes: +ACET-654 PO; +AMLO25TA PO; +AMLO5TAB2 PO; +AZEL0.1S3; +CARV12.5 PO; +D 50CAP PO; +DRIS50002 PO; +FLUO1TAB3 PO; +FLUO20CA8 PO; +GABA-279 PO; +GABA-283 PO; +GLIM4TAB PO; +HYDR100T PO; +HYDR10TAB PO; +HYDR12.55 PO; +INSULADS INJ; +LIDOCAINE 1% MDV 20ML VIAL As Ordered ONE; +LOPE1SUS PO; +LOPE2CA PO; +LOSA25TA8 PO; +MAGN400C2 PO; +MAGN400T5 PO; +NOVOINJ3 SC; +OMEP40CA2 PO; +ROPI1TAB PO; +SILV50CR EXT; +VITA100072 PO; +ZOCO80TA PO; +ZYLO300T4 PO
--- NOTE | 2016-12-17 14:10 | REP ---
POSTBIOPSY MAMMOGRAM, RIGHT BREAST: Postbiopsy mammogram right breast performed in the ML and CC projections following stereotactic biopsy of microcalcifications in the upper outer quadrant. A metallic clip is seen at the location of the biopsy, and the calcifications are no longer visualized. Signed by Calin Doan MD 12/17/2016 03:43 P
--- NOTE | 2016-12-17 14:13 | REP ---
SPECIMEN RADIOGRAPH: Specimen radiograph performed following stereotactic biopsy of microcalcifications in the upper outer quadrant of the right breast. Multiple calcifications are seen in the specimens. Signed by Calin Doan MD 12/17/2016 03:43 P
--- NOTE | 2016-12-17 16:28 | REP ---
STEREOTACTIC RIGHT BREAST BIOPSY: The procedure was performed under the direct supervision of Dr. Doan. The patient has a history of a grouping of calcifications in the right upper outer breast seen on a previous mammogram dated 08/19/2016 from [facility]. The risks and benefits of the procedure were explained to the patient and informed consent was obtained. A cranial caudal approach was utilized. The calcifications were localized using stereotactic mammographic guidance. The skin was prepped and draped in a sterile fashion 1% Lidocaine was used as a local anesthetic. A 10-gauge suction assisted mammotome needle was inserted and 5 core biopsy samples were obtained. Specimen radiograph demonstrates the presence of calcifications to be within the specimen. A marker clip was placed at the biopsy site. The patient tolerated the procedure well and there were no immediate complications. After the appropriate amount of monitored convalescence the patient was discharged from the department. Reviewed by JL Stone 12/18/2016 04:21 PEdited and Signed by Calin Doan MD 12/19/2016 01:13 P
== END ==
LOC: M RADPRO 12:23
PROVIDERS: ATTEND Surgery
DX: D24.1 Benign neoplasm of right breast (principal); R01.1 Cardiac murmur, unspecified; I12.9 Hypertensive chronic kidney disease with stage 1 through stage 4 chronic kidney disease, or unspecified chronic kidney disease; M19.90 Unspecified osteoarthritis, unspecified site; K44.9 Diaphragmatic hernia without obstruction or gangrene; M81.0 Age-related osteoporosis without current pathological fracture; Z78.0 Asymptomatic menopausal state; E11.22 Type 2 diabetes mellitus with diabetic chronic kidney disease; Z87.898 Personal history of other specified conditions; Z86.711 Personal history of pulmonary embolism; G89.29 Other chronic pain; R60.9 Edema, unspecified; M25.572 Pain in left ankle and joints of left foot; N18.3 Chronic kidney disease, stage 3 (moderate); R32 Unspecified urinary incontinence; Z79.4 Long term (current) use of insulin; Z79.84 Long term (current) use of oral hypoglycemic drugs

== ENCOUNTER 2016-12-23 09:40 | Observation (INO) | payer MEDICARE, MEDICAID ==
[~2016-12-23] VITALS: Ht 165.1 cm; Wt 142.8 kg
[~2016-12-23 09:40] MED LIST changes: -ACET-654 PO; -AMLO25TA PO; -AMLO5TAB2 PO; -AZEL0.1S3; -CARV12.5 PO; -D 50CAP PO; -DRIS50002 PO; -FLUO1TAB3 PO; -FLUO20CA8 PO; -GABA-279 PO; -GABA-283 PO; -GLIM4TAB PO; -HYDR100T PO; -HYDR10TAB PO; -HYDR12.55 PO; -INSULADS INJ; -LIDOCAINE 1% MDV 20ML VIAL As Ordered ONE; -LOPE1SUS PO; -LOPE2CA PO; -LOSA25TA8 PO; -MAGN400C2 PO; -MAGN400T5 PO; -NOVOINJ3 SC; -OMEP40CA2 PO; -ROPI1TAB PO; -SILV50CR EXT; -VITA100072 PO; -ZOCO80TA PO; -ZYLO300T4 PO
[2016-12-23] MEDS ORDERED: INSULADS INJ (10:09)
[2016-12-23] MEDS ORDERED: AMLO25TA PO (10:13)
[2016-12-23] MEDS ORDERED: CARV12.5 PO ×2 (10:13→14:57)
[2016-12-23] MEDS ORDERED: LOPE1SUS PO (10:21)
[2016-12-23] MEDS ORDERED: OMEP40CA2 PO ×2 (10:21→15:00)
[2016-12-23] MEDS ORDERED: LOSA25TA8 PO ×2 (10:21→14:57)
[2016-12-23] MEDS ORDERED: MAGN400C2 PO (10:21)
[2016-12-23] MEDS ORDERED: SIMV80TA PO (10:21)
[2016-12-23] MEDS ORDERED: ROPI1TAB PO ×2 (10:21→15:00)
[2016-12-23] MEDS ORDERED: HYDR100T PO (10:21)
[2016-12-23] MEDS ORDERED: GABA-283 PO (10:21)
[2016-12-23] MEDS ORDERED: HYDR12.55 PO (10:21)
[2016-12-23] MEDS ORDERED: FLUO20CA8 PO (10:21)
[2016-12-23] MEDS ORDERED: ONDANSETRON 4MG/2ML VIAL (J2405) IV ONE (10:30)
[2016-12-23] MEDS ORDERED: NS 1,000 ML IV ONE ×2 (10:30→12:45)
[2016-12-23 11:02] LABS: VENOUS BASE EXCESS -0.1 (-2.0-2.0); VENOUS O2 SATURATION 96.9 % (60.0-80.0); VENOUS PARTIAL PRESSURE CO2 39.1 mmHg (38.0-50.0); VENOUS PARTIAL PRESSURE O2 88.3 mmHg (30.0-50.0); VENOUS STANDARD HCO3 24.4 MEQ/L; VENOUS TOTAL CO2 25.5 MEQ/L (24.0-28.0)
[2016-12-23 11:12] LABS: INR 1.07
[2016-12-23 11:43] LABS: BASO # 0.1 K/mm3 (0.0-0.2); BASO % 0.5 % (0.0-1.0); EOS # 0.2 K/mm3 (0.0-0.50); EOS % 1.7 % (0.0-3.0); LARGE UNSTAINED CELL # 0.1 K/mm3 (0.0-0.4); LARGE UNSTAINED CELL % 1.1 % (0.0-4.0); LYMPH # 1.6 K/mm3 (1.5-4.5); LYMPH % 15.8 % (24.0-44.0); MEAN CORPUSCULAR HEMOGLOBIN 30.3 pg (27.0-33.0); MEAN CORPUSCULAR HGB CONC 33.1 g/dl (32.0-36.5); MEAN CORPUSCULAR VOLUME 91.4 fl (80.0-96.0); MONO # 0.5 K/mm3 (0.0-0.8); MONO % 4.9 % (0.0-5.0); NEUTROPHILS # 7.7 K/mm3 (1.8-7.7); NEUTROPHILS % 75.8 % (36.0-66.0); PLATELET COUNT, AUTOMATED 241 k/mm3 (150-450); RED CELL DISTRIBUTION WIDTH 12.9 % (11.5-14.5); WHITE BLOOD COUNT 10.2 K/mm3 (4.0-10.0)
[2016-12-23 11:44] LABS: ALBUMIN 3.6 GM/DL (3.2-5.2); ALBUMIN/GLOBULIN RATIO 0.82 (1.00-1.93); BILIRUBIN,DIRECT 0.1 MG/DL (0.0-0.2); BILIRUBIN,TOTAL 0.6 MG/DL (0.2-1.0); CALCIUM LEVEL 10.3 MG/DL (8.8-10.2); CREATININE FOR GFR 2.32 MG/DL (0.55-1.02); GLOMERULAR FILTRATION RATE 22.7 (>45); POTASSIUM SERUM 4.6 MEQ/L (3.5-5.1)
[2016-12-23] MEDS ORDERED: HumuLIN R (REGULAR) INSULIN (NovoLIN R) **100U/ML** PER UNIT IV ONE ×2 (12:45→14:15)
[2016-12-23 13:49] LABS: MICROSCOPIC EXAM QNS; MICROSCOPIC INDICATED? MAN YES (NO)
[2016-12-23] MEDS ORDERED: ACETAMINOPHEN TAB 650MG DOSE (2X325MG) PO PRN (14:30)
[2016-12-23] MEDS ORDERED: ONDANSETRON 4MG/2ML VIAL (J2405) IV PRN (14:30)
--- NOTE | 2016-12-23 14:31 | HPEPDOC ---
Medical History and Physical Date of Admission Dec 23, 2016 at 13:59 History and Physical ATTENDING: Dr. Harvey PCP: Esteban CC: N/V/diarrhea HPI: 61yoF with a past medical history significant for DM, HLD, GERD who states she has not been feeling well the past 2 days. She states she has had nausea, vomiting and diarrhea with fatigue and anorexia. BS were elevated today so she came to the ED. Denies abdominal pain. Denies any fevers, chills, SOARES, CP, SOB, cough, palpitations, or changes in bladder habits. Upon presentation to the hospital the patient was found to have NICKIE, thus the hospitalist team was consulted. PMHx: IDDM HTN HLD CKD3 Dr Hernandez H/O DVT/PE On coumadin GERD Gout depression Left great toe fracture(dropped TV on foot) 2 wks ago- wearing orthopedic shoe- F/U with [facility] 12/25/16 RLS PSHX: breast biopsy 12/12 benign SOCHX: Resides in: [place] Marital Status: single Kids: 2 Employment: unemployed Tobacco use: denies ETOH: denies Illicit Drugs: Denies Recent travel: denies Advanced directives: denies FAMHX: Pt is unaware of family hx, was raised in foster homes and is estranged from her children. Mother: unknown Father: unknown Siblings: unknown Children: unknown ROS: As noted in HPI, otherwise 11pt ROS of systems reviewed and unremarkable. PE: GEN: 61yoF, appears stated age. Well-nourished, well developed. No acute distress. Alert and oriented x 3. Pleasant, interactive. HEENT: Normocephalic, atraumatic. Pupils are equal, round, and reactive to light. Extraocular movements are intact. No nystagmus appreciated. Sclera are nonicteric. Conjunctiva without injection. Nose midline. Nasal turbinates without bogginess. EACs both patent BL. No facial asymmetry. Moist mucous membranes. Dentition poor. Pharynx pink and dry appearing. Neck supple, trachea midline. No lymphadenopathy or thyromegaly appreciated. CHEST: Regular rate and rhythm, +S1, +S2 LUNGS: Clear to auscultation bilaterally. No wheezes, rales, or rhonchi. Breathing appears symmetric and easy. Patient is speaking in full sentences. No accessory muscle use. ABD: Round, soft, non-tender, non-distended. +Bowel sounds throughout. No rebound or guarding. No costovertebral angle tenderness. EXT: Pulses 2+ bilaterally dorsalis pedis and radial. No lower extremity edema appreciated. SKIN: [place], dry, warm. Capillary refill <2sec. No rashes. NEURO: Alert and oriented x 3. Cranial nerves III-XII are intact. No focal deficits appreciated. LA 2.9 A&P: 61yoF with a past medical history significant for DM, HLD, GERD who states she has not been feeling well the past 2 days. She states she has had nausea, vomiting and diarrhea with fatigue and anorexia. BS were elevated today so she came to the ED. The patient will be admitted to observation to Dr. Harvey's service. Pt is discussed with Dr Quinones. 1. Gastroenteritis. GI panel. Monitor labs. Recheck LA. IVF at 150cc/hr. IV Zofran prn. Clear liq diet. 2. NICKIE. Baseline 1.56. S/P bolus IVF in ED. IVF at 150cc/hr. Hold ACEI/ Metformin/Losartan/Amaryl/Glimepiride/HCTZ. Avoid nephrotoxins. Consider Nephrology consult in AM if renal function does not improve. 3. IDDM. Clear liq diet. po meds on hold. Lantus held for now. Insulin given x 2 in ED. SSI ordered AC/HS. Consider restarting Levemir tomorrow. 4. HLD. Statin. 5. GERD. PPI 6. H/O DVT/PE. Coumadin as outpt, INR is noted to be sub therapeutic. (1.07). Will give additional dose tonight of 10 mg, monitor INR daily. (usual home dose listed as 5 alt with 7.5 mg daily. 7. RLS. Requip. 8. Hypomagnesemia. po supplement. Check level. 9. Lt great toe fracture. Wearing orthopedic shoe, following as outpt with [facility]. DVT prophylaxis. The patient is a Full code. Vital Signs Vital Signs Label Value Date Time Pulse 80 12/23/16 1053 Pulse 90 12/23/16 1053 Pulse 102 12/23/16 1053 Blood Pressure Assessment 116/79 (91) 12/23/16 1053 Location Left Arm Source Automatic Cuff (NIBP) Position Supine Blood Pressure Assessment 118/81 (93) 12/23/16 1053 Location Right Arm Source Automatic Cuff (NIBP) Position Sitting Blood Pressure Assessment 12/23/16 1053 Location Right Arm Source Automatic Cuff (NIBP) Position Standing Bedside Pulse Oximetry 96 % 12/23/16 0941 Item Value Date Time Oxygen Delivery Method Room Air 07/05/11 1439 Laboratory Data Labs 24H Laboratory Tests 2 12/23/16 10:45: Aspartate Amino Transf (AST/SGOT) 45H, Alanine Aminotransferase (ALT/SGPT) 41, Alkaline Phosphatase 163H, Total Bilirubin 0.6, Direct Bilirubin 0.1, Albumin 3.6, Albumin/Globulin Ratio 0.82L, Anion Gap 12, B-Hydroxybutyrate 1.35, White Blood Count 10.2H, Red Blood Count 4.91, Hemoglobin 14.9, Hematocrit 44.9, Mean Corpuscular Volume 91.4, Mean Corpuscular Hemoglobin 30.3, Mean Corpuscular Hemoglobin Concent 33.1, Red Cell Distribution Width 12.9, Platelet Count 241, Neutrophils (%) (Auto) 75.8H, Lymphocytes (%) (Auto) 15.8L, Monocytes (%) (Auto ) 4.9, Eosinophils (%) (Auto) 1.7, Basophils (%) (Auto) 0.5, Neutrophils # (Auto ) 7.7, Lymphocytes # (Auto) 1.6, Monocytes # (Auto) 0.5, Eosinophils # (Auto) 0.2, Basophils # (Auto) 0.1, Blood Gas Bicarbonate Standard 24.4, Calcium Level 10.3H, Glomerular Filtration Rate 22.7L, Lactic Acid Level 2.9*H, Large Unclassified Cells # 0.1, Large Unclassified Cells % 1.1, Lipase 239, Prothromb Time International Ratio 1.07, Prothrombin Time 14.0, Total Protein 8.0, Venous Blood Base Excess -0.1, Venous Blood pH 7.411, Venous Blood Partial Pressure CO2 39.1, Venous Blood Partial Pressure O2 88.3H, Venous Blood Total Carbon Dioxide 25.5, Venous Blood HCO3 24.3, Venous Blood Oxygen Saturation 96.9H 12/23/16 12:27: Bedside Glucose (Misc Panel) 443H 12/23/16 12:28: Bedside Urine Appearance (LAB) HAZYH, Bedside Urine Bilirubin (LAB) NEGATIVE, Bedside Urine Blood NEGATIVE, Bedside Urine Color (LAB) YELLOW, Bedside Urine Glucose (UA) 4+(1000 MG/DL)H, Bedside Urine Ketones (LAB) NEGATIVE, Bedside Urine Leukocyte Esterase (L TRACEH, Bedside Urine Nitrite (LAB) NEGATIVE, Bedside Urine Protein (LAB) 3+H, Bedside Urine Specific [place] (LAB 1.030, Bedside Urine Urobilinogen (LAB) NORMAL, Bedside Urine pH (LAB) 5.0, Urine WBC , Urine RBC , Urine Squamous Epithelial Cells , Urine Transitional Epithelial Cells , Urine Renal Epithelial Cells , Urine Other Crystals , Urine Calcium Oxalate Crystals , Urine Uric Acid Crystals , Urine Triple Phosphate Crystals , Urine Bacteria , Urine Hyaline Casts , Urine Waxy Casts , Urine Red Blood Cell Casts , Urine White Blood Cell Casts , Urine Mucus , Urine Amorphous Sediment , Urine Other , Urine Trichomonas , Urine Yeast , Urine Sperm , Urine Oval Fat Bodies , Urine Sediment Examination , Urine Bladder Epithelial Cells , Urine Granular Casts 12/23/16 13:45: Bedside Glucose (Misc Panel) 346H CBC/BMP Laboratory Tests 12/23/16 10:45 Red Blood Count 4.91, Mean Corpuscular Volume 91.4, Mean Corpuscular Hemoglobin 30.3, Mean Corpuscular Hemoglobin Concent 33.1, Red Cell Distribution Width 12.9 , Neutrophils (%) (Auto) 75.8 H, Lymphocytes (%) (Auto) 15.8 L, Monocytes (%) ( Auto) 4.9, Eosinophils (%) (Auto) 1.7, Basophils (%) (Auto) 0.5, Neutrophils # ( Auto) 7.7, Lymphocytes # (Auto) 1.6, Monocytes # (Auto) 0.5, Eosinophils # (Auto ) 0.2, Basophils # (Auto) 0.1 Home Medications Scheduled (Magnesium) 400 Mg Cap 400 MG PO DAILY Allopurinol (Allopurinol) 300 Mg Tab 300 MG PO DAILY Amlodipine Besylate (Norvasc) 2.5 Mg Tab 5 MG PO DAILY Carvedilol (Carvedilol) 12.5 Mg Tab 12.5 MG PO DAILY Fluoxetine Hcl (Fluoxetine) 20 Mg Cap 20 MG PO DAILY Gabapentin (Gabapentin) 400 Mg Cap 200 MG PO TID Glimepiride (Amaryl) 4 Mg Tab 4 MG PO BID WITH MEALS Hydrochlorothiazide (Hydrochlorothiazide) 12.5 Mg Tab 25 MG PO DAILY Insulin Glargine (Lantus) 100 Unit/Ml Inj 90 UNIT INJ QHS Lisinopril (Lisinopril) 40 Mg Tab 40 MG PO DAILY Lisinopril (Zestril) 40 Mg Tab 40 MG OR DAILY Losartan Potassium (Losartan Potassium) 25 Mg Tab 25 MG PO DAILY Metformin Hydrochloride (Metformin Hcl) 850 Mg Tab 850 MG PO TID Omeprazole (Prilosec) 40 Mg Cap 40 MG PO DAILY Omeprazole (Omeprazole) 40 Mg Cap 40 MG PO DAILY Pioglitazone Hydrochloride (Actos) 30 Mg Tab 30 MG PO DAILY Ropinirole Hydrochloride (Ropinirole HCl) 1 Mg Tab 1 MG PO QHS Simvastatin (Simvastatin) 80 Mg Tab 80 MG PO QHS Simvastatin (Zocor) 80 Mg Tab 80 MG OR DAILY AT BEDTIME Simvastatin - High Dose (Simvastatin) 80 Mg Tab 80 MG PO DAILY Tramadol Hcl (Tramadol Hcl) 50 Mg Tab 50 MG PO Q8HRS PRN Warfarin Sodium (Coumadin) 5 Mg Inj 5 MG PO DAILY START 5 MG TOMORROW 10-9 hydrALAZINE HCL (Hydralazine HCl) 100 Mg Tab 10 MG PO DAILY Miscellaneous Medications ([Byetta]) 5 SQ AC BREAKFAST AND DINNER X 30 DAYS Loperamide Hcl (Loperamide HCl) 1 Mg/7.5 Ml Veronika 2 MG PO Magnesium Chloride (Slow-Mag) Tab 1 OR Allergies Coded Allergies: No Known Allergies (Verified Allergy, Unknown, 01/20/10) Courtney Crow Dec 23, 2016 14:30
[2016-12-23] MEDS ORDERED: GLUCAGON FOR INJ 1 MG VIAL (J1610) SC PRN (14:45)
[2016-12-23] MEDS ORDERED: GLUCOSE 4 GM CHEW TABLET PO PRN (14:45)
[2016-12-23] MEDS ORDERED: DEXTROSE 50% 50 ML SYRINGE IV PRN (14:45)
[2016-12-23] MEDS ORDERED: GLIM4TAB PO (14:57)
[2016-12-23] MEDS ORDERED: LOPE2CA PO (14:57)
[2016-12-23] MEDS ORDERED: INSULANT SC (14:57)
[2016-12-23] MEDS ORDERED: ZYLO300T4 PO (14:57)
[2016-12-23] MEDS ORDERED: FLUO1TAB3 PO (14:57)
[2016-12-23] MEDS ORDERED: GABA-279 PO (14:57)
[2016-12-23] MEDS ORDERED: AMLO5TAB2 PO (14:57)
[2016-12-23] MEDS ORDERED: HYDR10TAB PO (14:57)
[2016-12-23] MEDS ORDERED: TRAM50TA2 PO (15:00)
[2016-12-23] MEDS ORDERED: MAGN400T5 PO (15:00)
[2016-12-23] MEDS ORDERED: NOVOINJ3 SC (15:00)
[2016-12-23] MEDS ORDERED: ZOCO80TA PO (15:00)
[2016-12-23] MEDS ORDERED: DRIS50002 PO (15:02)
[2016-12-23] MEDS ORDERED: amLODIPine 5 MG TAB PO SCH (15:02)
[2016-12-23] MEDS ORDERED: SILV50CR EXT (15:02)
[2016-12-23] MEDS ORDERED: D 50CAP PO (15:04)
[2016-12-23] MEDS ORDERED: CETI10TA PO (15:04)
[2016-12-23] MEDS ORDERED: ACET-654 PO (15:04)
[2016-12-23] MEDS ORDERED: AZEL0.1S3 (15:04)
[2016-12-23] MEDS ORDERED: VITA100072 PO (15:04)
[2016-12-23 16:00] VITALS: BP 111/84
[2016-12-23] MEDS: amLODIPine 5 MG TAB PO SCH (16:53)
[2016-12-23] MEDS ORDERED: WARFARIN SOD 10 MG TAB PO ONE (17:00)
[2016-12-23] MEDS: GABAPENTIN 100 MG CAP PO SCH ×2 (18:06→20:55)
[2016-12-23] MEDS: FLUoxetine 20 MG CAP PO SCH (18:06)
[2016-12-23] MEDS: HumaLOG INSULIN (NovoLOG) PER UNIT SC SCH (18:07)
[2016-12-23] MEDS: NS 1,000 ML IV SCH ×2 (18:07→20:57)
[2016-12-23 20:00] VITALS: BP 162/86
[2016-12-23] MEDS: **hydrALAZINE** 10 MG TAB PO SCH (20:56)
[2016-12-23] MEDS: CARVedilol 12.5 MG TAB PO SCH (20:56)
[2016-12-23] MEDS ORDERED: rOPINIRole 1MG TAB PO SCH (21:00)
[2016-12-23] MEDS ORDERED: HumaLOG INSULIN (NovoLOG) PER UNIT SC SCH (21:00)
[2016-12-23] MEDS ORDERED: ALLOPURINOL 300 MG TAB PO SCH (21:00)
[2016-12-23] MEDS ORDERED: SIMVASTATIN 40 MG TAB PO SCH (21:00)
[2016-12-23] MEDS ORDERED: ATORVASTATIN 20 MG TAB PO SCH (21:00)
[2016-12-23 21:05] LABS: MAGNESIUM LEVEL 1.3 MG/DL (1.8-2.4)
[2016-12-24] MEDS: NS 1,000 ML IV SCH ×2 (03:30→09:35)
[2016-12-24 06:00] VITALS: BP 130/78
[2016-12-24 06:55] LABS: INR 1.14
[2016-12-24 07:01] LABS: BASO % 0.4 % (0.0-1.0); EOS # 0.3 K/mm3 (0.0-0.50); EOS % 3.4 % (0.0-3.0); LARGE UNSTAINED CELL # 0.2 K/mm3 (0.0-0.4); LARGE UNSTAINED CELL % 1.8 % (0.0-4.0); LYMPH # 2.6 K/mm3 (1.5-4.5); MEAN CORPUSCULAR HEMOGLOBIN 30.4 pg (27.0-33.0); MEAN CORPUSCULAR HGB CONC 33.4 g/dl (32.0-36.5); MONO # 0.4 K/mm3 (0.0-0.8); MONO % 4.7 % (0.0-5.0); NEUTROPHILS # 5.1 K/mm3 (1.8-7.7); NEUTROPHILS % 60.6 % (36.0-66.0); PLATELET COUNT, AUTOMATED 176 k/mm3 (150-450); RED CELL DISTRIBUTION WIDTH 13.2 % (11.5-14.5); WHITE BLOOD COUNT 8.3 K/mm3 (4.0-10.0)
[2016-12-24 07:13] LABS: ALBUMIN 2.8 GM/DL (3.2-5.2); ALBUMIN/GLOBULIN RATIO 0.74 (1.00-1.93); BILIRUBIN,TOTAL 0.6 MG/DL (0.2-1.0); CREATININE FOR GFR 1.63 MG/DL (0.55-1.02); GLOMERULAR FILTRATION RATE 34.1 (>45); TOTAL PROTEIN 6.6 GM/DL (6.4-8.2)
[2016-12-24] MEDS: GABAPENTIN 100 MG CAP PO SCH ×2 (08:23→15:43)
[2016-12-24] MEDS: HumaLOG INSULIN (NovoLOG) PER UNIT SC SCH ×3 (08:23→17:16)
[2016-12-24 08:25] VITALS: BP 130/78
[2016-12-24] MEDS: **hydrALAZINE** 10 MG TAB PO SCH (08:25)
[2016-12-24] MEDS: CARVedilol 12.5 MG TAB PO SCH (08:25)
[2016-12-24] MEDS: amLODIPine 5 MG TAB PO SCH (08:25)
[2016-12-24] MEDS: FLUoxetine 20 MG CAP PO SCH (08:25)
[2016-12-24] MEDS ORDERED: **hydrALAZINE** 50 MG TAB PO SCH (09:00)
[2016-12-24] MEDS ORDERED: CARVedilol 12.5 MG TAB PO SCH (09:00)
[2016-12-24] MEDS ORDERED: OMEPRAZOLE 20 MG CAP PO SCH (09:00)
[2016-12-24 14:00] VITALS: BP 120/70
--- NOTE | 2016-12-24 15:01 | DSES ---
DATE OF ADMISSION: 12/23/2016 DATE OF DISCHARGE: 12/24/2016 FIRST DIAGNOSIS: Acute kidney injury. SECOND DIAGNOSES: Dehydration. HISTORY: Cecily Stewart is a patient of Dr. Orellana who was admitted with dehydration and acute kidney injury. Details are in the history and physical from admission. HOSPITAL COURSE: She was admitted to a medical bed, re-hydrated with intravenous (IV) fluids. The day after admission, her laboratory work was improved. Creatinine was back to its baseline, which was 1.6. Blood sugars were under better control. She felt able to be discharged. She was eating well, without nausea, vomiting or diarrhea. SIGNIFICANT LABORATORIES: Creatinine at discharge 1.6. Complete blood count (CBC) unremarkable. DISPOSITION: She is discharged home. Her medicines are unchanged that were taken prior to admission. Activity and diet as tolerated. Follow up with Dr. Orellana in one week.
== END 2016-12-24 17:18 | disposition home or self-care (01) ==
LOC: M ED 10:39 → M ED INP 13:59 → M MSPAV 15:51
PROVIDERS: ADMIT Hospitalist; ATTEND Family Medicine
DX: N17.9 Acute kidney failure, unspecified (principal); E86.0 Dehydration; K52.9 Noninfective gastroenteritis and colitis, unspecified; N18.3 Chronic kidney disease, stage 3 (moderate); M10.9 Gout, unspecified; E11.9 Type 2 diabetes mellitus without complications; E78.4 Other hyperlipidemia; K21.9 Gastro-esophageal reflux disease without esophagitis; G25.81 Restless legs syndrome; F32.9 Major depressive disorder, single episode, unspecified; E83.42 Hypomagnesemia; Z79.899 Other long term (current) drug therapy
CPT/HCPCS: 36415; 80048; 80053; 80076; 81000; 82010; 82803; 83605; 83690; 83735; 85025; 85610; 87040; 87088; 87186; 87507; 99285; G0378; J2405

== ENCOUNTER → 2017-02-19 | Outpatient (REF) | payer MEDICARE, MEDICAID ==
[~2017-02-19] MED LIST changes: +ACET-654 PO; +ALIVTAB3 PO; +AMLO25TA PO; +AMLO5TAB2 PO; +AZEL0.1S3; +CARV12.5 PO; +D 50CAP PO; +DRIS50002 PO; +FLUO1TAB3 PO; +FLUO20CA8 PO; +GABA-279 PO; +GABA-283 PO; +GLIM4TAB PO; +HYDR100T PO; +HYDR10TAB PO; +HYDR12.55 PO; +INSULADS INJ; +LOPE1SUS PO; +LOPE2CA PO; +LOSA25TA8 PO; +MAGN400C2 PO; +MAGN400T5 PO; +NOVOINJ3 SC; +OMEP40CA2 PO; +ROPI1TAB PO; +SILV50CR EXT; +VITA100072 PO; +ZOCO80TA PO; +ZYLO300T4 PO
== END ==
LOC: M SFHCPLAZ 10:20
PROVIDERS: ATTEND Family Medicine
DX: E11.22 Type 2 diabetes mellitus with diabetic chronic kidney disease (principal); Z11.59 Encounter for screening for other viral diseases
CPT/HCPCS: 36415; 83036; G0463; G0472

== ENCOUNTER 2017-02-28 07:11 | Emergency (ER) | payer MEDICARE, MEDICAID ==
[~2017-02-28] VITALS: Ht 167.6 cm; Wt 145.6 kg
--- NOTE | 2017-02-28 08:39 | REP ---
CT Head without contrast HISTORY: Extremity weakness COMPARISON: 01/26/2015 Areas of decreased attenuation are present in the periventricular white matter. This represents small-vessel ischemic disease. There is no intraparenchymal hemorrhage, acute infarct, mass or midline shift. The ventricular system and cortical sulci are dilated consistent with minimal volume loss. There is no extra cerebral collection. There is no fracture. The visualized sinuses are clear. IMPRESSION: 1. Small vessel ischemic disease. 2. Minimal volume loss. Signed by Ancelmo Mirza MD 02/28/2017 08:31 A
[2017-02-28 08:42] LABS: CREATININE FOR GFR 1.67 MG/DL (0.55-1.02); GLOMERULAR FILTRATION RATE 33.2 (>45)
[2017-02-28 08:47] LABS: BASO % 0.4 % (0.0-1.0); EOS # 0.4 K/mm3 (0.0-0.50); EOS % 5.3 % (0.0-3.0); LARGE UNSTAINED CELL # 0.2 K/mm3 (0.0-0.4); LARGE UNSTAINED CELL % 2.2 % (0.0-4.0); LYMPH # 2.5 K/mm3 (1.5-4.5); LYMPH % 35.4 % (24.0-44.0); MEAN CORPUSCULAR HEMOGLOBIN 30.9 pg (27.0-33.0); MEAN CORPUSCULAR HGB CONC 33.1 g/dl (32.0-36.5); MEAN CORPUSCULAR VOLUME 93.3 fl (80.0-96.0); MONO # 0.5 K/mm3 (0.0-0.8); MONO % 7.9 % (0.0-5.0); NEUTROPHILS # 3.2 K/mm3 (1.8-7.7); NEUTROPHILS % 48.8 % (36.0-66.0); PLATELET COUNT, AUTOMATED 245 k/mm3 (150-450); RED CELL DISTRIBUTION WIDTH 13.4 % (11.5-14.5); WHITE BLOOD COUNT 6.6 K/mm3 (4.0-10.0)
--- NOTE | 2017-02-28 09:36 | REP ---
LEFT FOOT, FOUR VIEWS: HISTORY: Pain. COMPARISON: 11/08/2016 There is no acute fracture or dislocation. There is narrowing of the intermediate and distal interphalangeal joint spaces and 1st metatarsophalangeal joint space. An osteophyte is present on the inferior calcaneus. IMPRESSION: Degenerative change, as described above. Signed by Ancelmo Mirza MD 02/28/2017 09:46 A
[2017-02-28 09:57] LABS: MAGNESIUM LEVEL 1.6 MG/DL (1.8-2.4)
[2017-02-28 10:43] VITALS: BP 132/84
[2017-03-02 10:04] LABS: FOLATE 13.7 NG/ML (>5.4)
[2017-03-03 14:18] LABS: Lyme Disease IgG/IgM Antibodie <0.91 ISR (0.00-0.90); Lyme Disease IgM Ab Quantitati <0.80 index (0.00-0.79)
== END 2017-02-28 10:44 | disposition home or self-care (01) ==
LOC: M ED 08:00
DX: E11.21 Type 2 diabetes mellitus with diabetic nephropathy (principal); M19.072 Primary osteoarthritis, left ankle and foot; I10 Essential (primary) hypertension; E78.5 Hyperlipidemia, unspecified; Z79.899 Other long term (current) drug therapy; Z79.4 Long term (current) use of insulin

== ENCOUNTER → 2017-03-05 | Day surgery (SDC) | payer MEDICARE, MEDICAID ==
[~2017-03-05] VITALS: Ht 170.2 cm; Wt 148.8 kg
[~2017-03-05] MED LIST changes: +LR 1,000 ML IV SCH; +PROPOFOL 200 MG/20 ML VIAL As Ordered ONE
[2017-03-05 09:13] LABS: CALCIUM LEVEL 9.7 MG/DL (8.8-10.2); CREATININE FOR GFR 1.54 MG/DL (0.55-1.02); GLOMERULAR FILTRATION RATE 36.5 (>45); POTASSIUM SERUM 4.4 MEQ/L (3.5-5.1)
--- NOTE | 2017-03-05 09:34 | ROOR ---
Patient Name: Cecily Stewart Procedure Date: 03/05/2017 8:48 AM Date of : 1955 Age: 61 Gender: Female Note Status: Finalized Procedure: Colonoscopy Indications: High risk colon cancer surveillance: Personal history of colonic polyps, Last colonoscopy: July 2010 Providers: Daniel SUE MD Referring MD: Ronel Camarillo MD Requesting Provider: Medicines: Monitored Anesthesia Care Complications: No immediate complications. Procedure: Pre-Anesthesia Assessment: - The heart rate, respiratory rate, oxygen saturations, blood pressure, adequacy of pulmonary ventilation, and response to care were monitored throughout the procedure. The Colonoscope was introduced through the anus and advanced to the terminal ileum, with identification of the appendiceal orifice and IC valve. The colonoscopy was performed without difficulty. The patient tolerated the procedure well. The quality of the bowel preparation was good. Findings: The perianal and digital rectal examinations were normal. Four sessile polyps were found in the splenic flexure and hepatic flexure. The polyps were diminutive in size. These polyps were removed with a cold snare. Resection and retrieval were complete. Multiple medium-mouthed diverticula were found in the sigmoid colon. Small Internal Hemorrhoids. Impression: - Four diminutive polyps at the splenic flexure and at the hepatic flexure, removed with a cold snare. Resected and retrieved. - Mild diverticulosis in the sigmoid colon. - Small Internal Hemorrhoids. - Otherwise normal to terminal ileum. Recommendation: - Repeat colonoscopy in 3 years for surveillance. Daniel Sue MD Daniel SUE MD 03/05/2017 9:34:02 AM This report has been signed electronically. Number of Addenda: 0 Note Initiated On: 03/05/2017 8:48 AM Estimated Blood Loss: Estimated blood loss: none.
[2017-03-05 10:45] VITALS: BP 121/78
== END | disposition home or self-care (01) ==
LOC: M SDC 08:08
PROVIDERS: ATTEND Internal Medicine Gastroenterology
DX: Z86.010 Personal history of colon polyps (principal); D12.3 Benign neoplasm of transverse colon; K57.30 Diverticulosis of large intestine without perforation or abscess without bleeding; K64.9 Unspecified hemorrhoids; I10 Essential (primary) hypertension; E11.9 Type 2 diabetes mellitus without complications; M12.9 Arthropathy, unspecified; M81.0 Age-related osteoporosis without current pathological fracture; K44.9 Diaphragmatic hernia without obstruction or gangrene; E78.00 Pure hypercholesterolemia, unspecified; K21.9 Gastro-esophageal reflux disease without esophagitis; M54.2 Cervicalgia; R06.83 Snoring; Q60.0 Renal agenesis, unilateral; Z79.899 Other long term (current) drug therapy; Z86.711 Personal history of pulmonary embolism; Z79.4 Long term (current) use of insulin; Z78.0 Asymptomatic menopausal state

== ENCOUNTER → 2017-05-25 | Outpatient (REF) | payer MEDICARE, MEDICAID ==
[~2017-05-25] MED LIST changes: -ACET-654 PO; +ACET1TAB17 PO; +AVEL1TAB3 PO; +CYCL5TAB PO; +FLUO20CA19 PO; +INSUH10VL SC; -LR 1,000 ML IV SCH; +MULT1TAB9 PO; +NYST10CR EXT; +PRED20TA PO; -PROPOFOL 200 MG/20 ML VIAL As Ordered ONE; +VITA100L PO
== END ==
LOC: M SFHCPLAZ 12:35
PROVIDERS: ATTEND Family Medicine
DX: E11.22 Type 2 diabetes mellitus with diabetic chronic kidney disease (principal)
CPT/HCPCS: 36415; 83036; G0463

== ENCOUNTER 2017-05-31 18:39 | Inpatient (IN) | payer MEDICARE, MEDICAID ==
[~2017-05-31] VITALS: Ht 162.6 cm; Wt 140.1 kg
[~2017-05-31 18:39] MED LIST changes: -AVEL1TAB3 PO; -CYCL5TAB PO; -FLUO20CA19 PO; -INSUH10VL SC; -MULT1TAB9 PO; -NYST10CR EXT; -PRED20TA PO; -VITA100L PO
[2017-05-31] MEDS ORDERED: GLUCOSE 4 GM CHEW TABLET PO PRN (19:00)
[2017-05-31] MEDS ORDERED: DEXTROSE 50% 50 ML SYRINGE IV PRN (19:00)
[2017-05-31] MEDS ORDERED: GLUCAGON FOR INJ 1 MG VIAL (J1610) SC PRN (19:00)
[2017-05-31 19:23] LABS: BASO # 0.1 K/mm3 (0.0-0.2); BASO % 0.5 % (0.0-1.0); EOS # 0.4 K/mm3 (0.0-0.50); EOS % 3.6 % (0.0-3.0); LARGE UNSTAINED CELL # 0.2 K/mm3 (0.0-0.4); LARGE UNSTAINED CELL % 1.7 % (0.0-4.0); LYMPH # 1.9 K/mm3 (1.5-4.5); LYMPH % 14.1 % (24.0-44.0); MEAN CORPUSCULAR HEMOGLOBIN 30.4 pg (27.0-33.0); MEAN CORPUSCULAR HGB CONC 33.1 g/dl (32.0-36.5); MEAN CORPUSCULAR VOLUME 92.1 fl (80.0-96.0); MONO # 0.5 K/mm3 (0.0-0.8); MONO % 4.1 % (0.0-5.0); NEUTROPHILS # 9.1 K/mm3 (1.8-7.7); NEUTROPHILS % 75.9 % (36.0-66.0); PLATELET COUNT, AUTOMATED 277 k/mm3 (150-450); RED CELL DISTRIBUTION WIDTH 13.5 % (11.5-14.5)
[2017-05-31 19:41] LABS: CALCIUM LEVEL 9.6 MG/DL (8.8-10.2); CREATININE FOR GFR 1.92 MG/DL (0.55-1.02); GLOMERULAR FILTRATION RATE 28.2 (>45); POTASSIUM SERUM 4.5 MEQ/L (3.5-5.1)
[2017-05-31 20:00] VITALS: BP 132/79
[2017-05-31] MEDS ORDERED: SLF 3 ML SYR IV PRN (20:15)
[2017-05-31] MEDS: HumaLOG INSULIN (NovoLOG) PER UNIT SC SCH (21:00)
[2017-05-31] MEDS: GABAPENTIN 100 MG CAP PO SCH (21:07)
[2017-05-31] MEDS: guaiFENesin ER 600 MG TAB PO SCH (21:07)
[2017-05-31] MEDS: MAGNESIUM OXIDE 400 MG TAB (MAG-OX) PO SCH (21:07)
[2017-05-31] MEDS: SIMVASTATIN 40 MG TAB PO SCH (21:07)
[2017-05-31] MEDS: LEVEMIR (INSULIN DETEMIR) 1 UNITS/0.01ML SC SCH (21:08)
[2017-05-31] MEDS: CARVedilol 12.5 MG TAB PO SCH (21:08)
[2017-05-31] MEDS: SLF 3 ML SYR IV SCH (21:09)
[2017-05-31] MEDS: MOXIFLOXACIN HCL 400 MG in APPROPRIATE DILUENT 1 EA IV SCH (21:10)
[2017-05-31] MEDS: rOPINIRole 1MG TAB PO SCH (21:13)
[2017-05-31] MEDS ORDERED: ALBUTEROL SULFATE 2.5 MG/0.5 ML INH NEB SOLN INH PRN (23:00)
[2017-05-31 23:59] VITALS: BP 148/73
[2017-06-01] MEDS ORDERED: D 50CAP PO (03:08)
[2017-06-01] MEDS ORDERED: PRED20TA PO (03:08)
[2017-06-01] MEDS ORDERED: INSUH10VL SC (03:08)
[2017-06-01] MEDS ORDERED: CYCL5TAB PO (03:08)
[2017-06-01] MEDS ORDERED: NYST10CR EXT (03:08)
[2017-06-01] MEDS ORDERED: GABA-283 PO (03:08)
[2017-06-01] MEDS ORDERED: VITA100L PO (03:08)
[2017-06-01] MEDS ORDERED: FLUO20CA19 PO (03:08)
[2017-06-01 04:00] VITALS: BP 134/80
[2017-06-01] MEDS: IPRATROPIUM 0.5MG/ALBUTEROL 2.5MG INH SOL UD 3ML (DUONEB)(J7620) NEB SCH ×5 (04:42→19:14)
[2017-06-01] MEDS: SLF 3 ML SYR IV SCH ×3 (06:04→21:16)
[2017-06-01 06:05] LABS: BASO % 0.1 % (0.0-1.0); EOS # 0.4 K/mm3 (0.0-0.50); EOS % 3.5 % (0.0-3.0); LARGE UNSTAINED CELL # 0.2 K/mm3 (0.0-0.4); LARGE UNSTAINED CELL % 1.5 % (0.0-4.0); LYMPH # 1.7 K/mm3 (1.5-4.5); LYMPH % 12.6 % (24.0-44.0); MEAN CORPUSCULAR HEMOGLOBIN 30.2 pg (27.0-33.0); MEAN CORPUSCULAR HGB CONC 32.7 g/dl (32.0-36.5); MEAN CORPUSCULAR VOLUME 92.4 fl (80.0-96.0); MONO # 0.6 K/mm3 (0.0-0.8); MONO % 4.8 % (0.0-5.0); NEUTROPHILS # 9.6 K/mm3 (1.8-7.7); NEUTROPHILS % 77.5 % (36.0-66.0); PLATELET COUNT, AUTOMATED 301 k/mm3 (150-450); RED CELL DISTRIBUTION WIDTH 13.6 % (11.5-14.5); WHITE BLOOD COUNT 12.4 K/mm3 (4.0-10.0)
[2017-06-01 06:26] LABS: ALBUMIN 2.2 GM/DL (3.2-5.2); ALBUMIN/GLOBULIN RATIO 0.43 (1.00-1.93); BILIRUBIN,TOTAL 0.5 MG/DL (0.2-1.0); CREATININE FOR GFR 1.76 MG/DL (0.55-1.02); GLOMERULAR FILTRATION RATE 31.1 (>45); MAGNESIUM LEVEL 1.5 MG/DL (1.8-2.4); POTASSIUM SERUM 4.3 MEQ/L (3.5-5.1); TOTAL PROTEIN 7.3 GM/DL (6.4-8.2)
[2017-06-01 08:00] VITALS: BP 140/56
--- NOTE | 2017-06-01 08:43 | REP ---
Clinical: Follow up pneumonia. Technique: PA and lateral. Comparison: 05/31/2017. Findings: Consolidation with air bronchograms in the left mid/lower lung zone along with bibasilar atelectasis and small right pleural effusion/reaction are again identified and essentially unchanged. Mediastinum and cardiac silhouette are stable. No pneumothorax. Skeletal structures demonstrate age-related degenerative changes. Impression: Left-sided consolidation with bibasilar atelectasis and small right pleural reaction similar to prior examination. Differential diagnosis includes multifocal pneumonia and neoplasm. Signed by Narciso Arana MD 06/01/2017 08:35 A
[2017-06-01] MEDS: LEVEMIR (INSULIN DETEMIR) 1 UNITS/0.01ML SC SCH ×2 (08:57→20:14)
[2017-06-01] MEDS: OMEPRAZOLE 20 MG CAP PO SCH (08:57)
[2017-06-01] MEDS: CARVedilol 12.5 MG TAB PO SCH ×2 (08:58→20:14)
[2017-06-01] MEDS: GABAPENTIN 100 MG CAP PO SCH ×3 (08:58→20:11)
[2017-06-01] MEDS: MAGNESIUM OXIDE 400 MG TAB (MAG-OX) PO SCH ×2 (08:58→20:12)
[2017-06-01] MEDS: amLODIPine 5 MG TAB PO SCH (08:58)
[2017-06-01] MEDS: guaiFENesin ER 600 MG TAB PO SCH ×2 (08:58→20:11)
[2017-06-01] MEDS: FLUoxetine 20 MG CAP PO SCH (08:59)
[2017-06-01] MEDS: ENOXAPARIN 40 MG/0.4 ML SYRINGE (J1650) SC SCH (08:59)
[2017-06-01] MEDS: HumaLOG INSULIN (NovoLOG) PER UNIT SC SCH ×4 (09:00→21:00)
--- NOTE | 2017-06-01 09:06 | IPNPDOC ---
Subjective Date Seen The patient was seen on 06/01/17. Subjective Chief Complaint/HPI The patient is a 62-year-old female admitted with a reason for visit of Pneumonia. Events since last encounter Pt states she is feeling better with less SOB. Denies CP, Abd pain. Constitutional: Denies: Chills, Fever Pulmonary: Reports: Dyspnea Cardiovascular: Denies: Chest Pain, Palpitations Gastrointestinal: Denies: Nausea, Vomiting, Abdominal Pain Objective Physical Examination General Exam: Positive: Alert, No Acute Distress Neck Exam: Positive: Supple, Negative: JVD Chest Exam: Positive: Rhonchi Abdomen Exam: Positive: Normal bowel sounds, Soft, Negative: Tenderness Extremity Exam: Negative: Edema Assessment /Plan Problems (1) Pneumonia Status: Acute Problem Specific Plan: Monitor Clinically Problem Text: 06/01 - On Moxifloxacin. Was on Ceftriaxone and zithro prior to transfer here at [facility]. CXR from 06/01: "Left-sided consolidation with bibasilar atelectasis and small right pleural reaction similar to prior examination. Differential diagnosis includes multifocal pneumonia and neoplasm." Consider Chest CT. Discuss with attending. Sputum cx pending, Blood cx pending. (2) Pleural effusion Status: Acute Problem Specific Plan: Monitor Clinically Problem Text: See above. (3) HTN (hypertension) Status: Chronic Problem Specific Plan: Monitor Clinically Problem Text: 06/01 - On Norvasc and Coreg. (4) CKD (chronic kidney disease), stage III Status: Chronic Problem Specific Plan: Monitor Clinically Problem Text: 06/01 - Creat down 1.76 today (1.92 yesterday). (5) DM2 (diabetes mellitus, type 2) Status: Chronic Problem Specific Plan: Monitor Clinically Problem Text: 06/01 - On SSI, Levemir. Plan/VTE VTE Prophylaxis Ordered?: Yes VS, I&O, 24H, Fishbone Vital Signs/I&O Vital Signs Date Time Temp Pulse Resp B/P (MAP) Pulse Ox O2 Delivery O2 Flow Rate FiO2 06/01/17 08:00 98.0 86 18 140/56 (84) 98 Nasal Cannula 2.0 I&O- Last 24 Hours up to 6 AM 06/01/17 06:00 Intake Total 910 ml Output Total 300 ml Balance 610 ml Laboratory Data 24H LABS Laboratory Tests 2 05/31/17 19:12: White Blood Count 12.0H, Red Blood Count 4.00, Hemoglobin 12.2, Hematocrit 36.8 , Mean Corpuscular Volume 92.1, Mean Corpuscular Hemoglobin 30.4, Mean Corpuscular Hemoglobin Concent 33.1, Red Cell Distribution Width 13.5, Platelet Count 277, Neutrophils (%) (Auto) 75.9H, Lymphocytes (%) (Auto) 14.1L, Monocytes (%) (Auto) 4.1, Eosinophils (%) (Auto) 3.6H, Basophils (%) (Auto) 0.5 , Neutrophils # (Auto) 9.1H, Lymphocytes # (Auto) 1.9, Monocytes # (Auto) 0.5, Eosinophils # (Auto) 0.4, Basophils # (Auto) 0.1, Large Unclassified Cells % 1.7 , Large Unclassified Cells # 0.2, Anion Gap 11, Glomerular Filtration Rate 28.2L , Blood Urea Nitrogen 38H, Creatinine 1.92H, Sodium Level 140, Potassium Level 4.5, Chloride Level 102, Carbon Dioxide Level 27, Calcium Level 9.6 06/01/17 05:15: White Blood Count 12.4H, Red Blood Count 3.98L, Hemoglobin 12.0, Hematocrit 36.8 , Mean Corpuscular Volume 92.4, Mean Corpuscular Hemoglobin 30.2, Mean Corpuscular Hemoglobin Concent 32.7, Red Cell Distribution Width 13.6, Platelet Count 301, Neutrophils (%) (Auto) 77.5H, Lymphocytes (%) (Auto) 12.6L, Monocytes (%) (Auto) 4.8, Eosinophils (%) (Auto) 3.5H, Basophils (%) (Auto) 0.1 , Neutrophils # (Auto) 9.6H, Lymphocytes # (Auto) 1.7, Monocytes # (Auto) 0.6, Eosinophils # (Auto) 0.4, Basophils # (Auto) 0.0, Large Unclassified Cells % 1.5 , Large Unclassified Cells # 0.2, Anion Gap 8, Glomerular Filtration Rate 31.1L , Blood Urea Nitrogen 39H, Creatinine 1.76H, Sodium Level 139, Potassium Level 4.3, Chloride Level 103, Carbon Dioxide Level 28, Calcium Level 10.0, Aspartate Amino Transf (AST/SGOT) 46H, Alanine Aminotransferase (ALT/SGPT) 43, Alkaline Phosphatase 176H, Total Bilirubin 0.5, Total Protein 7.3, Albumin 2.2L, Magnesium Level 1.5L, B-Type Natriuretic Peptide 61.1, Albumin/Globulin Ratio 0.43L CBC/BMP Laboratory Tests 05/31/17 19:12 Red Blood Count 4.00, Mean Corpuscular Volume 92.1, Mean Corpuscular Hemoglobin 30.4, Mean Corpuscular Hemoglobin Concent 33.1, Red Cell Distribution Width 13.5 , Neutrophils (%) (Auto) 75.9 H, Lymphocytes (%) (Auto) 14.1 L, Monocytes (%) ( Auto) 4.1, Eosinophils (%) (Auto) 3.6 H, Basophils (%) (Auto) 0.5, Neutrophils # (Auto) 9.1 H, Lymphocytes # (Auto) 1.9, Monocytes # (Auto) 0.5, Eosinophils # (Auto) 0.4, Basophils # (Auto) 0.1, Calcium Level 9.6 06/01/17 05:15 Red Blood Count 3.98 L, Mean Corpuscular Volume 92.4, Mean Corpuscular Hemoglobin 30.2, Mean Corpuscular Hemoglobin Concent 32.7, Red Cell Distribution Width 13.6, Neutrophils (%) (Auto) 77.5 H, Lymphocytes (%) (Auto) 12.6 L, Monocytes (%) (Auto) 4.8, Eosinophils (%) (Auto) 3.5 H, Basophils (%) ( Auto) 0.1, Neutrophils # (Auto) 9.6 H, Lymphocytes # (Auto) 1.7, Monocytes # ( Auto) 0.6, Eosinophils # (Auto) 0.4, Basophils # (Auto) 0.0, Calcium Level 10.0 , Aspartate Amino Transf (AST/SGOT) 46 H, Alanine Aminotransferase (ALT/SGPT) 43 , Alkaline Phosphatase 176 H, Total Bilirubin 0.5, Total Protein 7.3, Albumin 2.2 L Microbiology Microbiology 05/31/17 Blood Culture, Received Pending 05/31/17 Gram Stain, Received Pending 05/31/17 Sputum Culture, Received Pending José Miguel Funez RPA-C Jun 01, 2017 09:06
[2017-06-01 12:00] VITALS: BP 130/58
--- NOTE | 2017-06-01 15:28 | IPNPDOC ---
Subjective Date Seen The patient was seen on 06/01/17. Subjective Chief Complaint/HPI The patient is a 62-year-old female admitted with a reason for visit of Pneumonia. Objective Physical Examination General Exam: Positive: Alert, No Acute Distress Neck Exam: Positive: Supple, Negative: JVD Chest Exam: Positive: Rhonchi Abdomen Exam: Positive: Normal bowel sounds, Soft, Negative: Tenderness Extremity Exam: Negative: Edema Assessment /Plan Problems (1) Pneumonia Status: Acute Problem Specific Plan: Monitor Clinically Problem Text: 06/01 - On Moxifloxacin. Was on Ceftriaxone and zithro prior to transfer here at [facility]. CXR from 06/01: "Left-sided consolidation with bibasilar atelectasis and small right pleural reaction similar to prior examination. Differential diagnosis includes multifocal pneumonia and neoplasm." Consider Chest CT. Discuss with attending. Sputum cx pending, Blood cx pending. (2) Pleural effusion Status: Acute Problem Specific Plan: Monitor Clinically Problem Text: See above. (3) HTN (hypertension) Status: Chronic Problem Specific Plan: Monitor Clinically Problem Text: 06/01 - On Norvasc and Coreg. (4) CKD (chronic kidney disease), stage III Status: Chronic Problem Specific Plan: Monitor Clinically Problem Text: 06/01 - Creat down 1.76 today (1.92 yesterday). (5) DM2 (diabetes mellitus, type 2) Status: Chronic Problem Specific Plan: Monitor Clinically Problem Text: 06/01 - On SSI, Levemir. Plan/VTE VTE Prophylaxis Ordered?: Yes VS, I&O, 24H, Fishbone Vital Signs/I&O Vital Signs Date Time Temp Pulse Resp B/P (MAP) Pulse Ox O2 Delivery O2 Flow Rate FiO2 06/01/17 12:00 96.6 80 20 130/58 (82) 98 Nasal Cannula 2.0 I&O- Last 24 Hours up to 6 AM 06/01/17 05:59 Intake Total 910 ml Output Total 300 ml Balance 610 ml Laboratory Data 24H LABS Laboratory Tests 2 05/31/17 19:12: White Blood Count 12.0H, Red Blood Count 4.00, Hemoglobin 12.2, Hematocrit 36.8 , Mean Corpuscular Volume 92.1, Mean Corpuscular Hemoglobin 30.4, Mean Corpuscular Hemoglobin Concent 33.1, Red Cell Distribution Width 13.5, Platelet Count 277, Neutrophils (%) (Auto) 75.9H, Lymphocytes (%) (Auto) 14.1L, Monocytes (%) (Auto) 4.1, Eosinophils (%) (Auto) 3.6H, Basophils (%) (Auto) 0.5 , Neutrophils # (Auto) 9.1H, Lymphocytes # (Auto) 1.9, Monocytes # (Auto) 0.5, Eosinophils # (Auto) 0.4, Basophils # (Auto) 0.1, Large Unclassified Cells % 1.7 , Large Unclassified Cells # 0.2, Anion Gap 11, Glomerular Filtration Rate 28.2L , Blood Urea Nitrogen 38H, Creatinine 1.92H, Sodium Level 140, Potassium Level 4.5, Chloride Level 102, Carbon Dioxide Level 27, Calcium Level 9.6 06/01/17 05:15: White Blood Count 12.4H, Red Blood Count 3.98L, Hemoglobin 12.0, Hematocrit 36.8 , Mean Corpuscular Volume 92.4, Mean Corpuscular Hemoglobin 30.2, Mean Corpuscular Hemoglobin Concent 32.7, Red Cell Distribution Width 13.6, Platelet Count 301, Neutrophils (%) (Auto) 77.5H, Lymphocytes (%) (Auto) 12.6L, Monocytes (%) (Auto) 4.8, Eosinophils (%) (Auto) 3.5H, Basophils (%) (Auto) 0.1 , Neutrophils # (Auto) 9.6H, Lymphocytes # (Auto) 1.7, Monocytes # (Auto) 0.6, Eosinophils # (Auto) 0.4, Basophils # (Auto) 0.0, Large Unclassified Cells % 1.5 , Large Unclassified Cells # 0.2, Anion Gap 8, Glomerular Filtration Rate 31.1L , Blood Urea Nitrogen 39H, Creatinine 1.76H, Sodium Level 139, Potassium Level 4.3, Chloride Level 103, Carbon Dioxide Level 28, Calcium Level 10.0, Aspartate Amino Transf (AST/SGOT) 46H, Alanine Aminotransferase (ALT/SGPT) 43, Alkaline Phosphatase 176H, Total Bilirubin 0.5, Total Protein 7.3, Albumin 2.2L, Magnesium Level 1.5L, B-Type Natriuretic Peptide 61.1, Albumin/Globulin Ratio 0.43L 06/01/17 12:26: CBC/BMP Laboratory Tests 05/31/17 19:12 Red Blood Count 4.00, Mean Corpuscular Volume 92.1, Mean Corpuscular Hemoglobin 30.4, Mean Corpuscular Hemoglobin Concent 33.1, Red Cell Distribution Width 13.5 , Neutrophils (%) (Auto) 75.9 H, Lymphocytes (%) (Auto) 14.1 L, Monocytes (%) ( Auto) 4.1, Eosinophils (%) (Auto) 3.6 H, Basophils (%) (Auto) 0.5, Neutrophils # (Auto) 9.1 H, Lymphocytes # (Auto) 1.9, Monocytes # (Auto) 0.5, Eosinophils # (Auto) 0.4, Basophils # (Auto) 0.1, Calcium Level 9.6 06/01/17 05:15 Red Blood Count 3.98 L, Mean Corpuscular Volume 92.4, Mean Corpuscular Hemoglobin 30.2, Mean Corpuscular Hemoglobin Concent 32.7, Red Cell Distribution Width 13.6, Neutrophils (%) (Auto) 77.5 H, Lymphocytes (%) (Auto) 12.6 L, Monocytes (%) (Auto) 4.8, Eosinophils (%) (Auto) 3.5 H, Basophils (%) ( Auto) 0.1, Neutrophils # (Auto) 9.6 H, Lymphocytes # (Auto) 1.7, Monocytes # ( Auto) 0.6, Eosinophils # (Auto) 0.4, Basophils # (Auto) 0.0, Calcium Level 10.0 , Aspartate Amino Transf (AST/SGOT) 46 H, Alanine Aminotransferase (ALT/SGPT) 43 , Alkaline Phosphatase 176 H, Total Bilirubin 0.5, Total Protein 7.3, Albumin 2.2 L Microbiology Microbiology 05/31/17 Blood Culture, Received Pending 05/31/17 Gram Stain - Final, Resulted 05/31/17 Sputum Culture, Resulted Pending Attending Note Attending Note Patient c/o RUQ discomfort. Slightly tender to palpation. Will check u/s GB. No respiratory distress. Chaz Klein MD Jun 01, 2017 15:28
[2017-06-01 16:00] VITALS: BP 126/68
--- NOTE | 2017-06-01 16:04 | REP ---
Clinical: Abnormal opacities by chest x-ray. Comparison: 06/27/2011. Findings: Aeaufttq-[id number] consolidation with air bronchograms involving the posterobasilar left upper lobe and moderate consolidation with air bronchograms involving the right lower lobe are consistent with multifocal pneumonia. Small 1 cm subpleural density along the anterolateral right upper lobe (image 28) is also appreciated. Minimal chronic scarring identified and similar to 2011. Presumed reactive mediastinal and hilar lymph lymph nodes measure up to approximately 9 mm short axis diameter. No pleural effusion. Mediastinum demonstrates relatively normal thoracic aorta and heart/pericardium. Surrounding musculoskeletal structures demonstrate age-related changes without focal osseous abnormality. Upper abdomen demonstrates 1 cm right adrenal adenoma. Impression: 1. [id number] consolidations with air bronchograms involving the left upper lobe and right lower lobe with suspected reactive adenopathy. Findings likely represent multifocal pneumonia and follow up to resolution is recommended. 2. 1 cm subpleural density in the anterolateral right upper lobe also requires 3-month follow-up evaluation. 3. 1 cm right adrenal adenoma. Signed by Narciso Arana MD 06/01/2017 03:55 P
[2017-06-01 18:32] LABS: ALBUMIN 2.4 GM/DL (3.2-5.2); ALBUMIN/GLOBULIN RATIO 0.44 (1.00-1.93); BILIRUBIN,TOTAL 0.5 MG/DL (0.2-1.0); CALCIUM LEVEL 10.2 MG/DL (8.8-10.2); CREATININE FOR GFR 1.79 MG/DL (0.55-1.02); GLOMERULAR FILTRATION RATE 30.5 (>45); POTASSIUM SERUM 4.4 MEQ/L (3.5-5.1); TOTAL PROTEIN 7.9 GM/DL (6.4-8.2)
[2017-06-01] MEDS: ACETAMINOPHEN TAB 650MG DOSE (2X325MG) PO PRN (19:59)
[2017-06-01 20:00] VITALS: BP 155/82
[2017-06-01] MEDS: SIMVASTATIN 40 MG TAB PO SCH (20:11)
[2017-06-01] MEDS: MOXIFLOXACIN HCL 400 MG in APPROPRIATE DILUENT 1 EA IV SCH (20:12)
[2017-06-01] MEDS: rOPINIRole 1MG TAB PO SCH (20:16)
[2017-06-01 21:54] VITALS: BP 109/73
[2017-06-01] MEDS: MORPHINE 2 MG/ML 1ML SYRINGE IV PRN (22:08)
[2017-06-02 06:00] VITALS: BP 120/65
[2017-06-02] MEDS ORDERED: GASTROGRAFIN SOLUTION 30ML PO ONE (06:00)
[2017-06-02] MEDS: SLF 3 ML SYR IV SCH ×3 (06:10→20:02)
[2017-06-02] MEDS ORDERED: GASTROGRAFIN SOLUTION 30ML (Q9963) PO ONE (06:30)
[2017-06-02 07:22] LABS: BASO % 0.4 % (0.0-1.0); EOS # 0.6 K/mm3 (0.0-0.50); EOS % 4.4 % (0.0-3.0); LARGE UNSTAINED CELL # 0.2 K/mm3 (0.0-0.4); LARGE UNSTAINED CELL % 1.2 % (0.0-4.0); LYMPH # 2.2 K/mm3 (1.5-4.5); LYMPH % 16.4 % (24.0-44.0); MEAN CORPUSCULAR HEMOGLOBIN 30.5 pg (27.0-33.0); MEAN CORPUSCULAR HGB CONC 32.7 g/dl (32.0-36.5); MONO # 0.5 K/mm3 (0.0-0.8); NEUTROPHILS # 9.3 K/mm3 (1.8-7.7); NEUTROPHILS % 73.5 % (36.0-66.0); PLATELET COUNT, AUTOMATED 374 k/mm3 (150-450); RED CELL DISTRIBUTION WIDTH 13.5 % (11.5-14.5); WHITE BLOOD COUNT 12.6 K/mm3 (4.0-10.0)
[2017-06-02 07:48] LABS: CREATININE FOR GFR 1.66 MG/DL (0.55-1.02)
[2017-06-02 07:49] LABS: ALBUMIN 2.5 GM/DL (3.2-5.2); ALBUMIN/GLOBULIN RATIO 0.51 (1.00-1.93); BILIRUBIN,TOTAL 0.6 MG/DL (0.2-1.0); CALCIUM LEVEL 9.7 MG/DL (8.8-10.2); GLOMERULAR FILTRATION RATE 33.3 (>45); POTASSIUM SERUM 4.4 MEQ/L (3.5-5.1); TOTAL PROTEIN 7.4 GM/DL (6.4-8.2)
[2017-06-02] MEDS: HumaLOG INSULIN (NovoLOG) PER UNIT SC SCH ×4 (07:53→20:43)
[2017-06-02] MEDS: IPRATROPIUM 0.5MG/ALBUTEROL 2.5MG INH SOL UD 3ML (DUONEB)(J7620) NEB SCH ×4 (08:11→19:57)
[2017-06-02] MEDS: GABAPENTIN 100 MG CAP PO SCH ×3 (08:32→20:01)
[2017-06-02] MEDS: ENOXAPARIN 40 MG/0.4 ML SYRINGE (J1650) SC SCH (08:32)
[2017-06-02] MEDS: FLUoxetine 20 MG CAP PO SCH (08:32)
[2017-06-02] MEDS: guaiFENesin ER 600 MG TAB PO SCH ×2 (08:32→20:00)
[2017-06-02] MEDS: MAGNESIUM OXIDE 400 MG TAB (MAG-OX) PO SCH ×2 (08:32→20:01)
[2017-06-02] MEDS: OMEPRAZOLE 20 MG CAP PO SCH (08:32)
[2017-06-02] MEDS: amLODIPine 5 MG TAB PO SCH (08:33)
[2017-06-02] MEDS: LEVEMIR (INSULIN DETEMIR) 1 UNITS/0.01ML SC SCH ×2 (08:33→20:00)
[2017-06-02] MEDS: CARVedilol 12.5 MG TAB PO SCH ×2 (08:33→20:02)
[2017-06-02] MEDS ORDERED: INFLUENZA QUADRIVALENT PF VACCINE 0.5ML SYRINGE (90686) IM ONE (09:00)
[2017-06-02] MEDS: MORPHINE 2 MG/ML 1ML SYRINGE IV PRN (12:58)
--- NOTE | 2017-06-02 13:20 | IPNPDOC ---
Subjective Date Seen The patient was seen on 06/02/17. Subjective Chief Complaint/HPI The patient is a 62-year-old female admitted with a reason for visit of Pneumonia. Events since last encounter Cecily reports she is feeling a little better today with regards to her breathing. She had some right upper quadrant pain yesterday and a CT was ordered by Dr. Klein. The results of this show some mild hepatosplenomegaly, but note that the findings in her abdomen are stable since about 2013. General: Reports: Normal Appetite Pulmonary: Reports: Dyspnea (improving) Cardiovascular: Denies: Chest Pain, Palpitations Genitourinary: Denies: Dysuria Psych: Reports: Mood Normal Objective Physical Examination General Exam: Positive: Alert, Cooperative, No Acute Distress Eye Exam: Positive: Conjunctiva & lids normal, Negative: Sclera icteric ENT Exam: Positive: Mucous membr. moist/pink Neck Exam: Positive: Supple, Negative: Lymphadenopathy Chest Exam: Positive: Rhonchi (noted in bilateral posterior lung mendoza), Negative: Wheezing Heart Exam: Positive: Rate Normal, Normal S1, Normal S2 Abdomen Exam: Positive: Normal bowel sounds, Soft, Negative: Tenderness Extremity Exam: Negative: Edema Psych Exam: Positive: Mood NL, Oriented x 3 Assessment /Plan Problems (1) Pneumonia Status: Acute Problem Specific Plan: Monitor Clinically Problem Text: She seems to be doing well on the moxifloxacin. I will continue to use this antibiotic. (2) Pleural effusion Status: Acute Problem Specific Plan: Monitor Clinically Problem Text: Likely reactive from the pneumonias. Monitor. (3) HTN (hypertension) Status: Chronic Problem Specific Plan: Monitor Clinically Problem Text: We will continue the amlodipine and carvedilol. Continue to hold some of her antihypertensives including hydralazine. (4) CKD (chronic kidney disease), stage III Status: Chronic Problem Specific Plan: Monitor Clinically Problem Text: Her renal function is reasonably stable. We will continue to monitor (5) DM2 (diabetes mellitus, type 2) Status: Chronic Problem Specific Plan: Monitor Clinically Problem Text: Continue SSI, Levemir. Plan/VTE VTE Prophylaxis Ordered?: Yes VS, I&O, 24H, [place] Vital Signs/I&O Vital Signs Date Time Temp Pulse Resp B/P (MAP) Pulse Ox O2 Delivery O2 Flow Rate FiO2 06/02/17 12:58 18 06/02/17 08:33 85 120/65 06/02/17 06:00 97.7 93 Nasal Cannula 2.5 I&O- Last 24 Hours up to 6 AM 06/02/17 05:59 Intake Total 1080 ml Output Total 2200 ml Balance -1120 ml Laboratory Data 24H LABS Laboratory Tests 2 06/01/17 17:50: Anion Gap 11, Glomerular Filtration Rate 30.5L, Blood Urea Nitrogen 43H, Creatinine 1.79H, Sodium Level 138, Potassium Level 4.4, Chloride Level 103, Carbon Dioxide Level 24, Calcium Level 10.2, Aspartate Amino Transf (AST/SGOT) 56H, Alanine Aminotransferase (ALT/SGPT) 52, Alkaline Phosphatase 206H, Total Bilirubin 0.5, Total Protein 7.9, Albumin 2.4L, Albumin/Globulin Ratio 0.44L 06/02/17 01:40: 06/02/17 07:03: Anion Gap 10, Glomerular Filtration Rate 33.3L, Blood Urea Nitrogen 42H, Creatinine 1.66H, Sodium Level 142, Potassium Level 4.4, Chloride Level 105, Carbon Dioxide Level 27, Calcium Level 9.7, Aspartate Amino Transf (AST/SGOT) 62H, Alanine Aminotransferase (ALT/SGPT) 56, Alkaline Phosphatase 239H, Total Bilirubin 0.6, Total Protein 7.4, Albumin 2.5L, Albumin/Globulin Ratio 0.51L, White Blood Count 12.6H, Red Blood Count 4.22, Hemoglobin 12.9, Hematocrit 39.3 , Mean Corpuscular Volume 93.0, Mean Corpuscular Hemoglobin 30.5, Mean Corpuscular Hemoglobin Concent 32.7, Red Cell Distribution Width 13.5, Platelet Count 374, Neutrophils (%) (Auto) 73.5H, Lymphocytes (%) (Auto) 16.4L, Monocytes (%) (Auto) 4.0, Eosinophils (%) (Auto) 4.4H, Basophils (%) (Auto) 0.4 , Neutrophils # (Auto) 9.3H, Lymphocytes # (Auto) 2.2, Monocytes # (Auto) 0.5, Eosinophils # (Auto) 0.6H, Basophils # (Auto) 0.0, Large Unclassified Cells % 1.2, Large Unclassified Cells # 0.2, Lipase 166 CBC/BMP Laboratory Tests 06/01/17 17:50 Calcium Level 10.2, Aspartate Amino Transf (AST/SGOT) 56 H, Alanine Aminotransferase (ALT/SGPT) 52, Alkaline Phosphatase 206 H, Total Bilirubin 0.5 , Total Protein 7.9, Albumin 2.4 L 06/02/17 07:03 Calcium Level 9.7, Aspartate Amino Transf (AST/SGOT) 62 H, Alanine Aminotransferase (ALT/SGPT) 56, Alkaline Phosphatase 239 H, Total Bilirubin 0.6 , Total Protein 7.4, Albumin 2.5 L, Red Blood Count 4.22, Mean Corpuscular Volume 93.0, Mean Corpuscular Hemoglobin 30.5, Mean Corpuscular Hemoglobin Concent 32.7, Red Cell Distribution Width 13.5, Neutrophils (%) (Auto) 73.5 H, Lymphocytes (%) (Auto) 16.4 L, Monocytes (%) (Auto) 4.0, Eosinophils (%) (Auto) 4.4 H, Basophils (%) (Auto) 0.4, Neutrophils # (Auto) 9.3 H, Lymphocytes # (Auto ) 2.2, Monocytes # (Auto) 0.5, Eosinophils # (Auto) 0.6 H, Basophils # (Auto) 0.0 Microbiology Microbiology 05/31/17 Blood Culture - Preliminary, Resulted No growth after 24 hours . All specim... 06/02/17 Gram Stain - Final, Resulted 06/02/17 Sputum Culture, Resulted Pending 05/31/17 Gram Stain - Final, Resulted 05/31/17 Sputum Culture, Resulted Pending Gustavo Montano MD Jun 02, 2017 1:20 pm
--- NOTE | 2017-06-02 13:47 | REP ---
CT ABDOMEN AND PELVIS WITHOUT IV BUT WITH ORAL CONTRAST: HISTORY: Right upper quadrant abdominal pain. 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 Bowel gas pattern is unremarkable. The lung bases demonstrate consolidation and some collapse in the left base involving the lingular segment of the left upper lobe. There is an area of consolidation in the right lower lobe with air bronchograms as well. These changes are compatible with pneumonia. A sliver of right pleural effusion is evident. The liver and the spleen are homogeneous in texture. Spleen is mildly enlarged at 14.5 cm. The liver is mildly enlarged as well with a craniocaudal span of 21.8 cm. There is a small sliding-type hiatal hernia. No adrenal mass is observed. The right kidney is absent. There are clips in the gallbladder fossa. No pancreatic abnormality is seen. No retroperitoneal mass or adenopathy is seen. There is a retroaortic left renal vein. The uterus is positioned in the left side of the pelvis. No uterine or ovarian abnormality is seen. Small and large intestinal bowel loops are unremarkable. Urinary bladder is intact. There is a grouping of mildly enlarged left inguinal lymph nodes. The largest of these measures 2.8 x 2.7 cm in diameter. There is no other abdominal or pelvic lymphadenopathy seen. This finding is stable actually since 01/04/[address] Indeed, these are stable since a prior CT study from 01/18/2014. A normal appendix is seen in the right lower quadrant. No bony destructive lesion is seen. IMPRESSION: 1. hepatosplenomegaly, mild in degree. 2. Patient status post cholecystectomy. 3. Absent right kidney. 4. Bibasilar infiltrates consistent with pneumonia. Small right pleural fluid collection. 5. No acute intra-abdominal abnormality. Signed by Jhony Pond MD 06/02/2017 04:33 P
[2017-06-02 14:00] VITALS: BP 111/75
[2017-06-02 19:45] VITALS: BP 135/79
[2017-06-02] MEDS: MOXIFLOXACIN HCL 400 MG in APPROPRIATE DILUENT 1 EA IV SCH (20:00)
[2017-06-02] MEDS: rOPINIRole 1MG TAB PO SCH (20:00)
[2017-06-02] MEDS: SIMVASTATIN 40 MG TAB PO SCH (20:01)
[2017-06-02] MEDS: ACETAMINOPHEN TAB 650MG DOSE (2X325MG) PO PRN (20:04)
[2017-06-02 22:00] VITALS: BP 121/84
[2017-06-03 06:00] VITALS: BP 104/62
[2017-06-03] MEDS: SLF 3 ML SYR IV SCH ×3 (06:09→21:56)
[2017-06-03 07:30] LABS: MEAN CORPUSCULAR HEMOGLOBIN 30.8 pg (27.0-33.0); MEAN CORPUSCULAR HGB CONC 33.3 g/dl (32.0-36.5); MEAN CORPUSCULAR VOLUME 92.5 fl (80.0-96.0); RED CELL DISTRIBUTION WIDTH 13.2 % (11.5-14.5); WHITE BLOOD COUNT 9.9 K/mm3 (4.0-10.0)
[2017-06-03] MEDS: IPRATROPIUM 0.5MG/ALBUTEROL 2.5MG INH SOL UD 3ML (DUONEB)(J7620) NEB SCH ×4 (07:40→19:39)
[2017-06-03] MEDS: MAGNESIUM OXIDE 400 MG TAB (MAG-OX) PO SCH ×2 (08:40→21:55)
[2017-06-03] MEDS: HumaLOG INSULIN (NovoLOG) PER UNIT SC SCH ×4 (08:40→21:57)
[2017-06-03] MEDS: GABAPENTIN 100 MG CAP PO SCH ×3 (08:40→21:55)
[2017-06-03] MEDS: ENOXAPARIN 40 MG/0.4 ML SYRINGE (J1650) SC SCH (08:40)
[2017-06-03] MEDS: OMEPRAZOLE 20 MG CAP PO SCH (08:40)
[2017-06-03] MEDS: guaiFENesin ER 600 MG TAB PO SCH ×2 (08:41→21:55)
[2017-06-03] MEDS: FLUoxetine 20 MG CAP PO SCH (08:41)
[2017-06-03] MEDS: CARVedilol 12.5 MG TAB PO SCH ×2 (08:43→21:55)
[2017-06-03] MEDS: amLODIPine 5 MG TAB PO SCH (08:43)
[2017-06-03] MEDS: LEVEMIR (INSULIN DETEMIR) 1 UNITS/0.01ML SC SCH ×2 (09:54→21:56)
[2017-06-03 14:00] VITALS: BP 106/70
[2017-06-03 20:00] VITALS: BP 113/89
--- NOTE | 2017-06-03 20:03 | IPNPDOC ---
Subjective Date Seen The patient was seen on 06/03/17. Subjective Chief Complaint/HPI The patient is a 62-year-old female admitted with a reason for visit of Pneumonia. Events since last encounter Cecily continues to improve clinically. She has no specific complaints. She does miss her animals and would like to go home as soon as possible. General: Reports: Normal Appetite Constitutional: Denies: Chills, Fever Pulmonary: Denies: Pleuritic Chest Pain Cardiovascular: Denies: Chest Pain, Palpitations Psych: Reports: Mood Normal Objective Physical Examination General Exam: Positive: Alert, Cooperative, No Acute Distress Neck Exam: Positive: Supple, Negative: Lymphadenopathy Chest Exam: Positive: Rhonchi (bilateral posterior lung mendoza (anterior lung mendoza are examined, but are more difficult to examine because of habitus)) Heart Exam: Positive: Rate Normal, Normal S1, Normal S2 Abdomen Exam: Positive: Normal bowel sounds, Soft, Negative: Tenderness Extremity Exam: Negative: Edema Psych Exam: Positive: Mood NL Assessment /Plan Problems (1) Pneumonia Status: Acute Problem Specific Plan: Monitor Clinically Problem Text: I will change her moxifloxacin from IV to by mouth today. I anticipate discharge tomorrow unless there are major changes in her clinical status. (2) HTN (hypertension) Status: Chronic Problem Specific Plan: Monitor Clinically Problem Text: She is doing well on amlodipine and carvedilol. Continue current regimen, monitor. (3) CKD (chronic kidney disease), stage III Status: Chronic Problem Specific Plan: Monitor Clinically Problem Text: She appears to be about at her baseline. (4) DM2 (diabetes mellitus, type 2) Status: Chronic Problem Specific Plan: Monitor Clinically Problem Text: Continue SSI, Levemir. Plan/VTE VTE Prophylaxis Ordered?: Yes Plan Medications: Change to PO Anticipated Discharge: Home (tomorrow 06/04/17 unless there are major clinical changes) VS, I&O, 24H, [place] Vital Signs/I&O Vital Signs Date Time Temp Pulse Resp B/P (MAP) Pulse Ox O2 Delivery O2 Flow Rate FiO2 06/03/17 14:00 98.0 82 20 106/70 (82) 93 Nasal Cannula 2.0 I&O- Last 24 Hours up to 6 AM 06/03/17 06:00 Intake Total 2870 ml Output Total 2150 ml Balance 720 ml Laboratory Data 24H LABS Laboratory Tests 2 06/02/17 20:32: Bedside Glucose (Misc Panel) 225H 06/03/17 07:13: Bedside Glucose (Misc Panel) 152H 06/03/17 11:41: Bedside Glucose (Misc Panel) 214H 06/03/17 16:32: Bedside Glucose (Misc Panel) 228H CBC/BMP Laboratory Tests 06/03/17 07:11 Red Blood Count 4.03, Mean Corpuscular Volume 92.5, Mean Corpuscular Hemoglobin 30.8, Mean Corpuscular Hemoglobin Concent 33.3, Red Cell Distribution Width 13.2 Microbiology Microbiology 05/31/17 Blood Culture - Preliminary, Resulted No Growth after 48 hours. All Specime... 06/02/17 Gram Stain - Final, Resulted 06/02/17 Sputum Culture, Resulted Pending 05/31/17 Gram Stain - Final, Complete 05/31/17 Sputum Culture - Final, Complete Gustavo Montano MD Jun 03, 2017 8:02 pm
[2017-06-03] MEDS ORDERED: MOXIFLOXACIN 400 MG TAB PO SCH (21:00)
[2017-06-03] MEDS: SIMVASTATIN 40 MG TAB PO SCH (21:55)
[2017-06-03] MEDS: rOPINIRole 1MG TAB PO SCH (21:55)
[2017-06-04 04:00] VITALS: BP 129/74
[2017-06-04] MEDS: SLF 3 ML SYR IV SCH (05:36)
[2017-06-04] MEDS: IPRATROPIUM 0.5MG/ALBUTEROL 2.5MG INH SOL UD 3ML (DUONEB)(J7620) NEB SCH ×3 (08:12→15:45)
[2017-06-04] MEDS: guaiFENesin ER 600 MG TAB PO SCH (09:29)
[2017-06-04] MEDS: FLUoxetine 20 MG CAP PO SCH (09:29)
[2017-06-04] MEDS: LEVEMIR (INSULIN DETEMIR) 1 UNITS/0.01ML SC SCH (09:29)
[2017-06-04] MEDS: MAGNESIUM OXIDE 400 MG TAB (MAG-OX) PO SCH (09:30)
[2017-06-04] MEDS: GABAPENTIN 100 MG CAP PO SCH (09:30)
[2017-06-04 09:31] VITALS: BP 129/74
[2017-06-04] MEDS: ENOXAPARIN 40 MG/0.4 ML SYRINGE (J1650) SC SCH (09:31)
[2017-06-04] MEDS: amLODIPine 5 MG TAB PO SCH (09:31)
[2017-06-04] MEDS: OMEPRAZOLE 20 MG CAP PO SCH (09:31)
[2017-06-04] MEDS: CARVedilol 12.5 MG TAB PO SCH (09:31)
[2017-06-04] MEDS: HumaLOG INSULIN (NovoLOG) PER UNIT SC SCH ×2 (09:33→13:26)
[2017-06-04 14:00] VITALS: BP 135/88
[2017-06-04] MEDS ORDERED: AVEL1TAB3 PO (14:00)
--- NOTE | 2017-06-04 14:05 | DS.PDOC ---
Discharge Summary General Date of Admission May 31, 2017 at 18:48 Date of Discharge 06/04/17 Primary Care Physician: BRYON CAMARILLO MD Attending Physician: Gustavo Montano MD Discharge Summary ADMITTING DIAGNOSES: 1. Pneumonia of left lower lobe. 2. Pleural effusions. 3. Rounding kidney disease, stage III 4. Hypertension 5. Type2 diabetes with CK III and long-term use of insulin 6. Super morbid obesity (BMI greater than 50). DISCHARGE DIAGNOSES: 1. Multifocal pneumonia, bilateral. 2. Hypertension. 3. Chronic kidney disease, stage III. 4. Type 2 diabetes with long-term use of insulin 5. Super morbid obesity (BMI greater than 50) PROCEDURES PERFORMED DURING STAY: None. ADMISSION HISTORY: Ms. Stewart was transferred to our facility after spending 3 days at [facility] for lower respiratory infection.. Please see the admission history and physical for the remaining details (on eCW). HOSPITAL COURSE: Ms. Stewart was transferred to our facility after failing to improve substantially had [facility]. She was admitted there having been diagnosed with a lower respiratory tract infection. They were treating her with ceftriaxone and azithromycin. Because she seemed to have failed previous inpatient therapy on a decent regimen, I chose to start her on moxifloxacin while she was here. We did do CTs of her chest and abdomen. The CTs of the chest showed multifocal pneumonia, as well as a subpleural nodule which needs outpatient follow-up. The patient improved daily on the moxifloxacin, and was changed to oral medication the day prior to discharge. DISCHARGE CONDITION: Stable. FOLLOW-UP: An appointment was scheduled with Dr. Camarillo on June 08 at 11: 00 prior to discharge. DIET: Consistent carbohydrate. ACTIVITY: Tolerated. DISCHARGE MEDICATIONS: Please see below. ALLERGIES: Please see below. LABORATORY DATA: Please see below. IMAGING: Chest x-ray on 06/01/17, CT of the chest without contrast on 06/01/17, CT of the abdomen and pelvis without contrast on 06/02/17. ITEMS TO FOLLOWUP ON OUTPATIENT: 1. Subpleural pulmonary nodule noted on CT of the chest 06/01/17, 3 month follow- up was recommended. 2. Chlamydia and Mycoplasma pneumonia panels which were still pending at the time of discharge. This is particularly relevant as she lives with a bird. Vital Signs/I&Os Vital Signs Date Time Temp Pulse Resp B/P (MAP) Pulse Ox O2 Delivery O2 Flow Rate FiO2 06/04/17 09:31 72 129/74 06/04/17 04:00 97.5 20 95 Nasal Cannula 2.0 I&O- Last 24 Hours up to 6 AM 06/04/17 06:00 Intake Total 1920 ml Output Total 2500 ml Balance -580 ml Laboratory Data Labs 24H Laboratory Tests 2 06/03/17 16:32: Bedside Glucose (Misc Panel) 228H 06/03/17 21:00: Bedside Glucose (Misc Panel) 261H 06/04/17 06:09: Bedside Glucose (Misc Panel) 158H 06/04/17 12:28: Bedside Glucose (Misc Panel) 231H FSBS Laboratory Tests Test 06/03/17 16:32 06/03/17 21:00 06/04/17 06:09 06/04/17 12:28 Range/Units Bedside Glucose (Misc Panel) 228 261 158 231 80-115 MG/DL Microbiology Microbiology 05/31/17 Blood Culture - Preliminary, Resulted No Growth after 72 hours. All specime... 06/02/17 Gram Stain - Final, Complete 06/02/17 Sputum Culture - Final, Complete Yeast Like Organism 05/31/17 Gram Stain - Final, Complete 05/31/17 Sputum Culture - Final, Complete Discharge Medications Scheduled Allopurinol (Zyloprim) 300 Mg Tab, 300 MG PO DAILY, (Reported) Amlodipine Besylate (Amlodipine Besylate) 5 Mg Tab, 5 MG PO DAILY, (Reported) Carvedilol (Carvedilol) 12.5 Mg Tab, 12.5 MG PO BID, (Reported) Cholecalciferol (Vitamin D3) 5,000 Unit Cap, 5,000 UNIT PO DAILY, (Reported) Cyanocobalamin (Vitamin B 12) 100 Mcg John, 1,000 MCG PO DAILY, (Reported) Fluoxetine Hcl (Fluoxetine HCl) 20 Mg Cap, 20 MG PO DAILY, (Reported) Gabapentin (Gabapentin) 400 Mg Cap, 200 MG PO TID, (Reported) Glimepiride (Glimepiride) 4 Mg Tab, 4 MG PO BID, (Reported) Hydralazine HCl (Hydralazine HCl) 10 Mg Tab, 20 MG PO BID, (Reported) Insulin Aspart (Novolog) 100 U/Ml Inj, 25 UNITS SC QPM, (Reported) Insulin Glargine (Lantus) 1 Units/0.01 Ml Susp, 45 UNITS SC BID, (Reported) Losartan Potassium (Losartan Potassium) 25 Mg Tab, 12.5 MG PO DAILY, (Reported) Moxifloxacin Hydrochloride (Avelox) 400 Mg Tab, 400 MG PO DAILY@2100 Omeprazole (Omeprazole) 40 Mg Cap, 40 MG PO DAILY, (Reported) Prednisone (Prednisone) 20 Mg Tab, 20 MG PO DAILY, (Reported) Ropinirole Hydrochloride (Ropinirole HCl) 1 Mg Tab, 1 MG PO QHS, (Reported) Simvastatin - High Dose (Zocor) 80 Mg Tab, 80 MG PO QHS, (Reported) Scheduled PRN Azelastine Hydrochloride (Azelastine HCl) 137 Mcg/[place] Spr, 1 SPRAY NA BID PRN for ALLERGIES, (Reported) Cetirizine HCl (Cetirizine HCl) 10 Mg Tab, 10 MG PO DAILY PRN for ITCHING, ( Reported) Cyclobenzaprine HCl (Cyclobenzaprine HCl) 5 Mg Tab, 5 MG PO TID PRN for MUSCLE SPASMS, (Reported) Loperamide HCl (Loperamide HCl) 2 Mg Cap, 2 MG PO QID PRN for DIARRHEA, ( Reported) Magnesium Oxide (Magnesium Oxide 400) 400 Mg Tab, 400 MG PO DAILY PRN for SLEEP, (Reported) Allergies Coded Allergies: No Known Allergies (Verified , 03/05/17) Gustavo Montano MD Jun 04, 2017 14:05
== END 2017-06-04 17:47 | disposition home or self-care (01) | DRG 194 ==
LOC: M PCU 18:48 → M MS4PR 06-01 21:29
PROVIDERS: ADMIT Family Medicine; ATTEND Family Medicine
DX: J18.1 Lobar pneumonia, unspecified organism (principal); J90 Pleural effusion, not elsewhere classified; Z68.43 Body mass index [BMI] 50.0-59.9, adult; E11.40 Type 2 diabetes mellitus with diabetic neuropathy, unspecified; N18.3 Chronic kidney disease, stage 3 (moderate); I12.9 Hypertensive chronic kidney disease with stage 1 through stage 4 chronic kidney disease, or unspecified chronic kidney disease; E78.5 Hyperlipidemia, unspecified; M10.9 Gout, unspecified; M19.90 Unspecified osteoarthritis, unspecified site; E11.22 Type 2 diabetes mellitus with diabetic chronic kidney disease; E66.01 Morbid (severe) obesity due to excess calories; G25.81 Restless legs syndrome; K21.9 Gastro-esophageal reflux disease without esophagitis; R91.1 Solitary pulmonary nodule; F32.9 Major depressive disorder, single episode, unspecified; E55.9 Vitamin D deficiency, unspecified; Z79.4 Long term (current) use of insulin; Z79.52 Long term (current) use of systemic steroids; Z79.899 Other long term (current) drug therapy; Z86.711 Personal history of pulmonary embolism; Z86.718 Personal history of other venous thrombosis and embolism

== ENCOUNTER 2017-06-16 10:43 | Inpatient (IN) | payer MEDICARE, MEDICAID ==
[~2017-06-16] VITALS: Ht 165.1 cm; Wt 139.9 kg
[2017-06-16] MEDS: LOSARTAN 25 MG TAB PO SCH (09:00)
[~2017-06-16 10:43] MED LIST changes: +AVEL1TAB3 PO; +CYCL5TAB PO; +FLUO20CA19 PO; +INSUH10VL SC; +NYST10CR EXT; +PRED20TA PO; +VITA100L PO
[2017-06-16] MEDS ORDERED: MORPHINE 2 MG/ML 1ML SYRINGE IV ONE (11:15)
[2017-06-16] MEDS ORDERED: NS 1,000 ML IV ONE (11:15)
[2017-06-16 11:35] LABS: BASO # 0.1 K/mm3 (0.0-0.2); BASO % 0.6 % (0.0-1.0); EOS # 0.3 K/mm3 (0.0-0.50); EOS % 3.8 % (0.0-3.0); LARGE UNSTAINED CELL # 0.1 K/mm3 (0.0-0.4); LARGE UNSTAINED CELL % 1.5 % (0.0-4.0); LYMPH % 21.7 % (24.0-44.0); MEAN CORPUSCULAR HEMOGLOBIN 30.6 pg (27.0-33.0); MEAN CORPUSCULAR HGB CONC 32.9 g/dl (32.0-36.5); MEAN CORPUSCULAR VOLUME 92.8 fl (80.0-96.0); MONO # 0.4 K/mm3 (0.0-0.8); MONO % 4.3 % (0.0-5.0); NEUTROPHILS # 6.1 K/mm3 (1.8-7.7); NEUTROPHILS % 68.1 % (36.0-66.0); PLATELET COUNT, AUTOMATED 410 k/mm3 (150-450); RED CELL DISTRIBUTION WIDTH 13.4 % (11.5-14.5)
[2017-06-16 12:08] LABS: ALBUMIN 2.9 GM/DL (3.2-5.2); ALBUMIN/GLOBULIN RATIO 0.63 (1.00-1.93); BILIRUBIN,DIRECT 0.2 MG/DL (0.0-0.2); BILIRUBIN,TOTAL 0.6 MG/DL (0.2-1.0); CALCIUM LEVEL 9.4 MG/DL (8.8-10.2); CREATININE FOR GFR 1.36 MG/DL (0.55-1.02); GLOMERULAR FILTRATION RATE 41.9 (>45); POTASSIUM SERUM 4.7 MEQ/L (3.5-5.1); TOTAL PROTEIN 7.5 GM/DL (6.4-8.2)
[2017-06-16] MEDS ORDERED: ONDANSETRON 4MG/2ML VIAL (J2405) IV PRN (12:45)
--- NOTE | 2017-06-16 12:48 | REP ---
CHEST X-RAY: Two views. HISTORY: Abdominal pain. COMPARISON STUDY: 06/01/2017 FINDINGS: There is a large pleural opacity along the right lateral chest wall blunting the right lateral pleural angle consistent with pleural effusion possibly partially loculated. There is hazy opacity in the left mid lung zone, which is improved from the June 01 2017 study. No free left pleural effusion is seen. Mild cardiomegaly is observed. A dextroconvex curvature is seen in the thoracic spine as before. There are clips in the right upper quadrant. Degenerative changes are seen in the shoulders. IMPRESSION: Right pleural effusion, possibly loculated. Improved infiltrate left perihilar region. No free subdiaphragmatic air seen. Signed by Jhony Pond MD 06/16/2017 03:51 P
--- NOTE | 2017-06-16 12:48 | HPEPDOC ---
Medical History and Physical Date of Admission Jun 16, 2017 History and Physical ATTENDING: Dr. Klein PCP: Marquise CC: Left side pain and SOB HPI: 62yoF who was most recently admitted to [facility] 05/31/17-06/04/17 related to pneumonia and pleural effusion states she has finished course of Avelox and prednisone. Pt states she has had left flank pain x past 2 days. Associated with SOB. Denies cough. No fevers/chills. Reported to ED for further evaluation. Denies any SOARES, CP, cough, palpitations, abdominal pain, N/V/D, or changes in bowel or bladder habits. Upon presentation to the hospital the patient was found to have pleural effusion , thus the hospitalist team was consulted. PMHx: IDDM peripheral neuropathy HTN HLD CKD3 Dr Hernandez Absent Rt kidney since OA H/O DVT/PE off anticoagulation GERD Gout depression Vitamin D Def RLS RUL nodule, plan for repeat CT 09/13 Obesity. BMI 51.6 PSHX: breast biopsy 12/12 benign discetomy 1971 cholecystectomy [place] Adenomatous polyp LEEP [place] 06/13 SOCHX: Resides in: [place] Marital Status: single Kids: 2 Employment: unemployed Tobacco use: denies ETOH: denies Illicit Drugs: Denies Recent travel: denies Advanced directives: denies FAMHX: Pt is unaware of family hx, was raised in foster homes and is estranged from her children. Mother: unknown Father: unknown Siblings: unknown Children: unknown ROS: As noted in HPI, otherwise 11pt ROS of systems reviewed and unremarkable. PE: GEN: 62yoF, appears stated age. Well-nourished, well developed. No acute distress. Alert and oriented x 3. Pleasant, interactive. HEENT: Normocephalic, atraumatic. Pupils are equal, round, and reactive to light. Extraocular movements are intact. No nystagmus appreciated. Sclera are nonicteric. Conjunctiva without injection. Nose midline. Nasal turbinates without bogginess. EACs both patent BL. No facial asymmetry. Moist mucous membranes. Dentition poor. Pharynx pink and dry appearing. Neck supple, trachea midline. No lymphadenopathy or thyromegaly appreciated. CHEST: Regular rate and rhythm, +S1, +S2 LUNGS: decreased BS bilaterally, rales noted Left base. No wheezes, or rhonchi. Breathing appears symmetric and easy. Patient is speaking in full sentences. No accessory muscle use. ABD: Round, soft, non-tender, non-distended. +Bowel sounds throughout. No rebound or guarding. No costovertebral angle tenderness. EXT: Pulses 2+ bilaterally dorsalis pedis and radial. No lower extremity edema appreciated. SKIN: [place], dry, warm. Capillary refill <2sec. No rashes. NEURO: Alert and oriented x 3. Cranial nerves III-XII are intact. No focal deficits appreciated. LA 1.3 CXR Right pleural effusion, possibly loculated. Improved infiltrate left perihilar region. No free subdiaphragmatic air seen CT Chest pending. UA pending A&P: The patient will be admitted to observation to Dr. Klein's service. Pt is discussed with Dr Church. 1. Rt Pleural effusion, possibly loculated. CXR report noted. CT Chest pending. IR requested for thoracentesis. Consider consulting Dr Brantley if necessary. 2. NICKIE. Baseline 1.5-1.7. SCr 1.36 today. S/P 1 liter IVF in ED. Monitor. 3. IDDM. levemir/SSI/CC diet, po meds on hold. A1c pending. 4. HLD. Statin. 5. GERD. PPI 6. RLS. Flexeril. 7. Allergic rhinitis. Zyrtec/Astelin 8. HTN. Serial CIP/troponin. Norvasc/Cozaar/hydralazine/Coreg. 9. Peripheral Neuopathy. Continue Gabapentin. 10. Gout. Allopurinol. DVT prophylaxis. SQ Heparin. The patient is a Full code Vital Signs Vital Signs Date Time Temp Pulse Resp B/P (MAP) Pulse Ox O2 Delivery O2 Flow Rate FiO2 06/16/17 12:31 18 06/16/17 11:37 06/16/17 10:45 98.0 79 93 Room Air Laboratory Data Labs 24H Laboratory Tests 2 06/16/17 11:16: White Blood Count 9.0, Red Blood Count 4.30, Hemoglobin 13.1, Hematocrit 39.9, Mean Corpuscular Volume 92.8, Mean Corpuscular Hemoglobin 30.6, Mean Corpuscular Hemoglobin Concent 32.9, Red Cell Distribution Width 13.4, Platelet Count 410, Neutrophils (%) (Auto) 68.1H, Lymphocytes (%) (Auto) 21.7L, Monocytes (%) (Auto) 4.3, Eosinophils (%) (Auto) 3.8H, Basophils (%) (Auto) 0.6 , Neutrophils # (Auto) 6.1, Lymphocytes # (Auto) 2.0, Monocytes # (Auto) 0.4, Eosinophils # (Auto) 0.3, Basophils # (Auto) 0.1, Large Unclassified Cells % 1.5 , Large Unclassified Cells # 0.1, Anion Gap 6L, Glomerular Filtration Rate 41.9L , Lactic Acid Level 1.3, Calcium Level 9.4, Aspartate Amino Transf (AST/SGOT) 34 , Alanine Aminotransferase (ALT/SGPT) 28, Alkaline Phosphatase 158H, Total Bilirubin 0.6, Direct Bilirubin 0.2, Total Protein 7.5, Albumin 2.9L, Albumin/ Globulin Ratio 0.63L, Lipase 131 CBC/BMP Laboratory Tests 06/16/17 11:16 Red Blood Count 4.30, Mean Corpuscular Volume 92.8, Mean Corpuscular Hemoglobin 30.6, Mean Corpuscular Hemoglobin Concent 32.9, Red Cell Distribution Width 13.4 , Neutrophils (%) (Auto) 68.1 H, Lymphocytes (%) (Auto) 21.7 L, Monocytes (%) ( Auto) 4.3, Eosinophils (%) (Auto) 3.8 H, Basophils (%) (Auto) 0.6, Neutrophils # (Auto) 6.1, Lymphocytes # (Auto) 2.0, Monocytes # (Auto) 0.4, Eosinophils # ( Auto) 0.3, Basophils # (Auto) 0.1 Home Medications Scheduled (Multivitamin Adults 50+) 1 Tab Tab, 1 TAB PO DAILY Allopurinol (Zyloprim) 300 Mg Tab, 300 MG PO QHS Amlodipine Besylate (Amlodipine Besylate) 5 Mg Tab, 5 MG PO DAILY Carvedilol (Carvedilol) 12.5 Mg Tab, 12.5 MG PO BID Fluoxetine Hcl (Fluoxetine HCl) 20 Mg Cap, 20 MG PO DAILY Gabapentin (Gabapentin) 100 Mg Cap, 200 MG PO TID Glimepiride (Glimepiride) 4 Mg Tab, 4 MG PO BID Hydralazine HCl (Hydralazine HCl) 10 Mg Tab, 20 MG PO BID Insulin Aspart (Novolog) 100 U/Ml Inj, 25 UNITS SC QPM DINNERTIME Insulin Glargine (Lantus) 1 Units/0.01 Ml Susp, 45 UNITS SC BID Losartan Potassium (Losartan Potassium) 25 Mg Tab, 12.5 MG PO DAILY Magnesium Oxide (Magnesium Oxide 400) 400 Mg Tab, 400 MG PO TID Omeprazole (Omeprazole) 40 Mg Cap, 40 MG PO DAILY Ropinirole Hydrochloride (Ropinirole HCl) 1 Mg Tab, 1 MG PO QHS Simvastatin - High Dose (Zocor) 80 Mg Tab, 80 MG PO QHS Scheduled PRN Azelastine Hydrochloride (Azelastine HCl) 137 Mcg/[place] Spr, 1 SPRAY NA BID PRN for ALLERGIES Cyclobenzaprine HCl (Cyclobenzaprine HCl) 5 Mg Tab, 5 MG PO TID PRN for MUSCLE SPASMS Loperamide HCl (Loperamide HCl) 2 Mg Cap, 2 MG PO QID PRN for DIARRHEA Allergies Coded Allergies: No Known Allergies (Verified , 03/05/17) Attending Note Attending Note I have independently interviewed and examined this patient at the bedside, and discussed the management plan as documented by my Resident physician. Courtney Crow Jun 16, 2017 12:48 SHEA CHURCH MD Jun 18, 2017 12:21
[2017-06-16] MEDS ORDERED: CETIRIZINE (ZyrTEC) 10 MG TAB PO PRN (13:00)
[2017-06-16] MEDS ORDERED: DEXTROSE 50% 50 ML SYRINGE IV PRN (13:00)
[2017-06-16] MEDS ORDERED: GLUCOSE 4 GM CHEW TABLET PO PRN (13:00)
[2017-06-16] MEDS ORDERED: GLUCAGON FOR INJ 1 MG VIAL (J1610) SC PRN (13:00)
--- NOTE | 2017-06-16 13:24 | REP ---
The CT of the chest without IV contrast: Comparisons are the chest CT dated 06/01/2017 and plain film PA and lateral views of the chest performed earlier today. There is a large right pleural fluid collection that I suspect is loculated. This is similar to the PA and lateral plain film study earlier today but was not present on the comparison CT. On the comparison CT there was an infiltrate in the lower lobe of the right lung. This is no longer identified today. On the previous study there was an infiltrate posteriorly in the left upper lobe. This has decreased in size. There is a tiny left pleural effusion, not present previously. Thoracic aorta is unremarkable. Cardiac size normal. There is no pericardial effusion. The visualized upper abdominal contents are unremarkable. There are surgical clips in the gallbladder fossa. Impression: Large loculated right pleural effusion as an interval change. Tiny left pleural effusion also likely loculated. Left upper lobe infiltrate has decreased in size. The previous right lower lobe infiltrate is no longer identified. Signed by Calin Walker MD 06/16/2017 01:15 P
[2017-06-16] MEDS ORDERED: GABA-279 PO (13:39)
[2017-06-16] MEDS ORDERED: MULT1TAB9 PO (13:42)
[2017-06-16] MEDS: HEPARIN SOD (PORCINE) 5000 UNITS/ML VIAL SQ SCH ×2 (14:00→21:29)
[2017-06-16 14:49] LABS: TOTAL PROTEIN 7.5 GM/DL (6.4-8.2)
[2017-06-16 15:53] LABS: RBC PLEURAL FLUID 41 (<10mm3 cells/uL); TNC PLEURAL FLUID 876 cells/uL (0-20)
[2017-06-16 15:55] LABS: BF DIFF IF INDICATED? YES (NO)
[2017-06-16 16:08] LABS: LDH, BODY FLUID 275 U/L (NOT ESTABLISHED); TOTAL PROTEIN, BODY FLUID 5.2 G/DL (NOT ESTABLISHED)
[2017-06-16 17:45] VITALS: BP 164/88
[2017-06-16] MEDS: amLODIPine 5 MG TAB PO SCH (17:50)
[2017-06-16] MEDS: FLUoxetine 20 MG CAP PO SCH (17:50)
[2017-06-16] MEDS: GABAPENTIN 100 MG CAP PO SCH ×2 (17:51→21:28)
[2017-06-16] MEDS: CYANOCOBALAMIN 500 MCG TAB PO SCH (17:51)
[2017-06-16] MEDS: SENOKOT S TAB PO SCH ×2 (17:51→21:28)
[2017-06-16] MEDS: OMEPRAZOLE 20 MG CAP PO SCH (17:51)
[2017-06-16] MEDS: VITAMIN D 1,000 INTERNATIONAL UNITS TABLET PO SCH (17:51)
[2017-06-16] MEDS: HumaLOG INSULIN (NovoLOG) PER UNIT SC SCH ×2 (17:52→21:00)
[2017-06-16] MEDS: AZELASTINE 137MCG NASAL SPY 30 ML (ASTELIN) SCH (21:00)
[2017-06-16] MEDS: LEVEMIR (INSULIN DETEMIR) 1 UNITS/0.01ML SC SCH (21:00)
[2017-06-16] MEDS: CARVedilol 12.5 MG TAB PO SCH (21:28)
[2017-06-16] MEDS: **hydrALAZINE** 10 MG TAB PO SCH (21:28)
[2017-06-16] MEDS: SIMVASTATIN 40 MG TAB PO SCH (21:28)
[2017-06-16 22:00] VITALS: BP 159/60
[2017-06-16 22:38] LABS: CC BF DIFF EXAM SPUN
[2017-06-17] MEDS: ACETAMINOPHEN TAB 650MG DOSE (2X325MG) PO PRN ×4 (04:53→22:01)
[2017-06-17] MEDS: HEPARIN SOD (PORCINE) 5000 UNITS/ML VIAL SQ SCH ×3 (04:53→22:05)
--- NOTE | 2017-06-17 05:31 | REP ---
TWO VIEW CHEST: Two views of the chest are performed status post right thoracentesis. There is no pneumothorax. Right sided pleural fluid is again seen in the costophrenic angle. Streaky opacities in the left lung are unchanged. Cardiomediastinal silhouette is unchanged. IMPRESSION: No pneumothorax status post right pleurocentesis. Signed by Calin Doan MD 06/17/2017 09:40 A
[2017-06-17 06:00] VITALS: BP 157/90
--- NOTE | 2017-06-17 06:17 | REP ---
ULTRASOUND GUIDED RIGHT THORACENTESIS: The procedure was performed under the direct supervision of Dr. Doan. The risks and benefits of the procedure were explained to the patient and informed consent was obtained. The right pleural effusion was localized using ultrasound guidance. The skin was prepped and draped in a sterile fashion. 1% lidocaine was used as a local anesthetic. An 8-Divehi multi-side hole catheter was inserted using trocar technique. 280 mL of low viscosity red colored fluid was withdrawn and sent to the lab for analysis. The patient tolerated the procedure well and there were no immediate complications. Reviewed by JL Stone 06/17/2017 05:03 PEdited and Signed by Calin Doan MD 06/18/2017 05:30 P
[2017-06-17 06:54] LABS: BASO % 0.6 % (0.0-1.0); EOS # 0.7 K/mm3 (0.0-0.50); EOS % 8.3 % (0.0-3.0); LARGE UNSTAINED CELL # 0.2 K/mm3 (0.0-0.4); LARGE UNSTAINED CELL % 1.8 % (0.0-4.0); LYMPH # 2.2 K/mm3 (1.5-4.5); LYMPH % 26.4 % (24.0-44.0); MEAN CORPUSCULAR HEMOGLOBIN 30.4 pg (27.0-33.0); MEAN CORPUSCULAR HGB CONC 32.9 g/dl (32.0-36.5); MEAN CORPUSCULAR VOLUME 92.4 fl (80.0-96.0); MONO # 0.5 K/mm3 (0.0-0.8); MONO % 5.8 % (0.0-5.0); NEUTROPHILS # 4.8 K/mm3 (1.8-7.7); NEUTROPHILS % 57.1 % (36.0-66.0); PLATELET COUNT, AUTOMATED 326 k/mm3 (150-450); RED CELL DISTRIBUTION WIDTH 13.5 % (11.5-14.5); WHITE BLOOD COUNT 8.5 K/mm3 (4.0-10.0)
[2017-06-17 06:56] LABS: CALCIUM LEVEL 9.2 MG/DL (8.8-10.2); CREATININE FOR GFR 1.26 MG/DL (0.55-1.02); GLOMERULAR FILTRATION RATE 45.8 (>45); MAGNESIUM LEVEL 1.2 MG/DL (1.8-2.4)
[2017-06-17] MEDS: HumaLOG INSULIN (NovoLOG) PER UNIT SC SCH ×4 (07:30→21:00)
[2017-06-17] MEDS: ALLOPURINOL 300 MG TAB PO SCH (10:38)
[2017-06-17] MEDS: **hydrALAZINE** 10 MG TAB PO SCH ×2 (10:38→22:03)
[2017-06-17] MEDS: GABAPENTIN 100 MG CAP PO SCH ×3 (10:38→22:03)
[2017-06-17] MEDS: VITAMIN D 1,000 INTERNATIONAL UNITS TABLET PO SCH (10:38)
[2017-06-17] MEDS: CYANOCOBALAMIN 500 MCG TAB PO SCH (10:38)
[2017-06-17] MEDS: OMEPRAZOLE 20 MG CAP PO SCH (10:39)
[2017-06-17] MEDS: amLODIPine 5 MG TAB PO SCH (10:39)
[2017-06-17] MEDS: CARVedilol 12.5 MG TAB PO SCH ×2 (10:39→22:03)
[2017-06-17] MEDS: FLUoxetine 20 MG CAP PO SCH (10:40)
[2017-06-17] MEDS: LEVEMIR (INSULIN DETEMIR) 1 UNITS/0.01ML SC SCH ×2 (10:40→22:04)
[2017-06-17] MEDS: LOSARTAN 25 MG TAB PO SCH (10:40)
[2017-06-17] MEDS: SENOKOT S TAB PO SCH ×2 (10:41→22:03)
--- NOTE | 2017-06-17 12:06 | IPNPDOC ---
Subjective Date Seen The patient was seen on 06/17/17. Subjective Chief Complaint/HPI The patient is a 62-year-old female admitted with a reason for visit of Pleural Effusion, Right. Events since last encounter Pt still complains of left side discomfort. She states that she lifted a chair recently and thinks that was what caused it. She denies SOB, CP, Abd pain. Constitutional: Denies: Chills, Fever Pulmonary: Denies: Dyspnea Cardiovascular: Denies: Chest Pain Gastrointestinal: Denies: Nausea, Vomiting, Abdominal Pain Objective Physical Examination General Exam: Positive: Alert, No Acute Distress Neck Exam: Positive: Supple, Negative: JVD Chest Exam: Positive: Diminished Heart Exam: Positive: Rate Normal, Regular Rhythm Abdomen Exam: Positive: Normal bowel sounds, Soft, Negative: Tenderness Extremity Exam: Negative: Edema Assessment /Plan Problems (1) Pleural effusion, right Problem Specific Plan: Monitor Clinically, Repeat Labs Problem Text: 06/17 - Right pleural effusion. CT:Large loculated right pleural effusion as an interval change. Tiny left pleural effusion also likely loculated. Left upper lobe infiltrate has decreased in size. The previous right lower lobe infiltrate is no longer identified. Thoracentesis done by IR. Cx Pending. Will order a repeat CXR for tomorrow AM. May consider consulting Dr Brantley thoracic surgery. Left sided rib pain has improved with Rx. (2) NICKIE (acute kidney injury) Status: Acute Problem Specific Plan: Monitor Clinically, Repeat Labs Problem Text: 06/17 - Creat 1.26 (1.36 yesterday). (3) DM2 (diabetes mellitus, type 2) Status: Chronic Problem Specific Plan: Monitor Clinically, Repeat Labs Problem Text: On Levemir and SSI. (4) HTN (hypertension) Status: Chronic Problem Specific Plan: Monitor Clinically Problem Text: On Cozaar, hydralazine, Coreg. Plan/VTE VTE Prophylaxis Ordered?: Yes VS, I&O, 24H, Fishbone Vital Signs/I&O Vital Signs Date Time Temp Pulse Resp B/P (MAP) Pulse Ox O2 Delivery O2 Flow Rate FiO2 06/17/17 10:40 157/90 06/17/17 06:00 98.0 82 20 93 06/16/17 17:45 Room Air I&O- Last 24 Hours up to 6 AM 06/18/17 06:00 Intake Total 800 ml Output Total 950 ml Balance -150 ml Laboratory Data 24H LABS Laboratory Tests 2 06/16/17 15:15: Body Fluid pH 7.661, Body Fluid pH Source PLEURAL, Body Fluid Neutrophils 2, Body Fluid Lymphocytes 62, Body Fluid Eosinophils 11, Body Fluid Monocytes/ Macrophages 25, Body Fluid Glucose Source PLEURAL, Body Fluid Glucose 165, Body Fluid Protein Source PLEURAL, Body Fluid Total Protein 5.2, Body Fluid LDH Source PLEURAL, Body Fluid Lactate Dehydrogenase 275, Body Fluid Amylase Source PLEURAL, Body Fluid Amylase 34, Pleural Fluid Source PLEURAL, Pleural Fluid Color RED, Pleural Fluid Appearance CLOUDY, Pleural Fluid RBC (Auto) 41, Pleural Fluid Total Nucleated Cells 876H 06/16/17 16:54: Bedside Glucose (Misc Panel) 114 06/16/17 17:47: Total Creatine Kinase 74, Creatine Kinase MB 2.1, Creatine Kinase MB Relative Index 2.83, Troponin I < 0.02 06/16/17 20:30: Bedside Glucose (Misc Panel) 141H 06/16/17 23:43: Total Creatine Kinase 66, Creatine Kinase MB 2.0, Creatine Kinase MB Relative Index 3.03, Troponin I < 0.02 06/17/17 05:42: Anion Gap 7L, Glomerular Filtration Rate 45.8, Estimated Mean Plasma Glucose 212H, Hemoglobin A1c 9.0H, Blood Urea Nitrogen 18, Creatinine 1.26H, Sodium Level 142, Potassium Level 4.0, Chloride Level 107, Carbon Dioxide Level 28, Calcium Level 9.2, Magnesium Level 1.2L, Thyroid Stimulating Hormone (TSH) 2.560 06/17/17 06:12: White Blood Count 8.5, Red Blood Count 3.92L, Hemoglobin 11.9L, Hematocrit 36.2 , Mean Corpuscular Volume 92.4, Mean Corpuscular Hemoglobin 30.4, Mean Corpuscular Hemoglobin Concent 32.9, Red Cell Distribution Width 13.5, Platelet Count 326, Neutrophils (%) (Auto) 57.1, Lymphocytes (%) (Auto) 26.4, Monocytes ( %) (Auto) 5.8H, Eosinophils (%) (Auto) 8.3H, Basophils (%) (Auto) 0.6, Neutrophils # (Auto) 4.8, Lymphocytes # (Auto) 2.2, Monocytes # (Auto) 0.5, Eosinophils # (Auto) 0.7H, Basophils # (Auto) 0.0, Large Unclassified Cells % 1.8, Large Unclassified Cells # 0.2 CBC/BMP Laboratory Tests 06/17/17 05:42 Calcium Level 9.2 06/17/17 06:12 Red Blood Count 3.92 L, Mean Corpuscular Volume 92.4, Mean Corpuscular Hemoglobin 30.4, Mean Corpuscular Hemoglobin Concent 32.9, Red Cell Distribution Width 13.5, Neutrophils (%) (Auto) 57.1, Lymphocytes (%) (Auto) 26.4, Monocytes (%) (Auto) 5.8 H, Eosinophils (%) (Auto) 8.3 H, Basophils (%) ( Auto) 0.6, Neutrophils # (Auto) 4.8, Lymphocytes # (Auto) 2.2, Monocytes # (Auto ) 0.5, Eosinophils # (Auto) 0.7 H, Basophils # (Auto) 0.0 Microbiology Microbiology 06/16/17 Acid Fast Stain, Received Pending 06/16/17 Mycobacterial Culture, Received Pending 06/16/17 Fungal Smear, Received Pending 06/16/17 Fungal Culture, Received Pending 06/16/17 Gram Stain - Final, Resulted 06/16/17 Body Fluid Culture, Resulted Pending José Miguel Funez Jun 17, 2017 12:06 Chaz Klein MD Jun 17, 2017 14:09
[2017-06-17] MEDS: AZELASTINE 137MCG NASAL SPY 30 ML (ASTELIN) SCH ×3 (12:08→21:00)
[2017-06-17] MEDS: CYCLOBENZAPRINE 5MG TABLET PO PRN (12:08)
[2017-06-17 14:00] VITALS: BP 125/81
[2017-06-17 16:28] VITALS: BP 131/81
[2017-06-17 22:00] VITALS: BP 120/73
[2017-06-17] MEDS: SIMVASTATIN 40 MG TAB PO SCH (22:04)
[2017-06-18] MEDS: CYCLOBENZAPRINE 5MG TABLET PO PRN (02:45)
[2017-06-18 06:00] VITALS: BP 133/83
[2017-06-18] MEDS: HEPARIN SOD (PORCINE) 5000 UNITS/ML VIAL SQ SCH ×3 (06:00→21:30)
[2017-06-18 07:25] LABS: ALBUMIN 2.7 GM/DL (3.2-5.2); ALBUMIN/GLOBULIN RATIO 0.56 (1.00-1.93); BILIRUBIN,TOTAL 0.4 MG/DL (0.2-1.0); CALCIUM LEVEL 9.8 MG/DL (8.8-10.2); CREATININE FOR GFR 1.41 MG/DL (0.55-1.02); GLOMERULAR FILTRATION RATE 40.2 (>45); POTASSIUM SERUM 4.3 MEQ/L (3.5-5.1); TOTAL PROTEIN 7.5 GM/DL (6.4-8.2)
[2017-06-18 07:32] LABS: BASO % 0.4 % (0.0-1.0); EOS # 0.6 K/mm3 (0.0-0.50); EOS % 6.9 % (0.0-3.0); LARGE UNSTAINED CELL # 0.2 K/mm3 (0.0-0.4); LYMPH # 1.8 K/mm3 (1.5-4.5); LYMPH % 21.6 % (24.0-44.0); MEAN CORPUSCULAR HEMOGLOBIN 30.6 pg (27.0-33.0); MEAN CORPUSCULAR HGB CONC 33.2 g/dl (32.0-36.5); MEAN CORPUSCULAR VOLUME 92.3 fl (80.0-96.0); MONO # 0.5 K/mm3 (0.0-0.8); MONO % 6.2 % (0.0-5.0); NEUTROPHILS # 5.1 K/mm3 (1.8-7.7); NEUTROPHILS % 62.8 % (36.0-66.0); PLATELET COUNT, AUTOMATED 333 k/mm3 (150-450); RED CELL DISTRIBUTION WIDTH 13.3 % (11.5-14.5); WHITE BLOOD COUNT 8.1 K/mm3 (4.0-10.0)
--- NOTE | 2017-06-18 08:36 | IPNPDOC ---
Subjective Date Seen The patient was seen on 06/18/17. Subjective Chief Complaint/HPI The patient is a 62-year-old female admitted with a reason for visit of Pleural Effusion, Right. Constitutional: Denies: Chills, Night Sweats ENT: Denies: Head Aches, Dysphagia Pulmonary: Reports: Cough, Pleuritic Chest Pain (left lower rib area. hurts with cough a lot, hurts with deep breath some.) Cardiovascular: Denies: Palpitations, Orthopnea Gastrointestinal: Denies: Nausea, Vomiting Genitourinary: Denies: Dysuria, Frequency Hematologic: Denies: Bruising Psych: Reports: Mood Normal Objective Physical Examination General Exam: Positive: Alert, No Acute Distress Eye Exam: Positive: PERRLA, Negative: Sclera icteric Neck Exam: Positive: Supple, Negative: JVD Chest Exam: Positive: Diminished, Other (soft velcro like sound heard right posterolateral base. no wheezes), Negative: Normal air movement Heart Exam: Positive: Rate Normal, Regular Rhythm Abdomen Exam: Positive: Normal bowel sounds, Soft, Negative: Tenderness Extremity Exam: Negative: Edema Assessment /Plan Problems (1) Pleural effusion, right Status: Acute Response to Treatment: Improving Problem Specific Plan: Monitor Clinically, Repeat Labs Problem Text: 06/18: repeat cxr to assess potential reaccumulation. relatively high LDH and protein identify this process to be exudate. she is experiencing left chest pleuritic pain which I believe is secondary to recent pneumonia, cough. not much relief with cyclobenzaprine and tylenol. will try topical diclofenac. 06/17 - Right pleural effusion. CT:Large loculated right pleural effusion as an interval change. Tiny left pleural effusion also likely loculated. Left upper lobe infiltrate has decreased in size. The previous right lower lobe infiltrate is no longer identified. Thoracentesis done by IR. Cx Pending. Will order a repeat CXR for tomorrow AM. May consider consulting Dr Brantley thoracic surgery. Left sided rib pain has improved with Rx. (2) NICKIE (acute kidney injury) Status: Chronic Response to Treatment: Stable Problem Specific Plan: Monitor Clinically, Repeat Labs Problem Text: 06/17 - Creat 1.26 (1.36 yesterday). (3) DM2 (diabetes mellitus, type 2) Status: Chronic Problem Specific Plan: Monitor Clinically, Repeat Labs Problem Text: On Levemir and SSI. (4) HTN (hypertension) Status: Chronic Problem Specific Plan: Monitor Clinically Problem Text: 06/18: would like to see her on agent other than hydralazine. will reduce dose to 10 bid from current 20 and adjust other agents as needed. at 60+yo, we only need her bp to be <150/90. hydralazine can cause drug induced lupus so will check SUHA, anti-DS DNA Ab. With drug induced lupus would expect Pos SUHA but Neg anti-DS DNA Ab. Plan/VTE VTE Prophylaxis Ordered?: Yes Plan Anticipated Discharge: Home VS, I&O, 24H, Fishbone Vital Signs/I&O Vital Signs Date Time Temp Pulse Resp B/P (MAP) Pulse Ox O2 Delivery O2 Flow Rate FiO2 06/18/17 06:00 97.4 75 17 133/83 (100) 91 Room Air Laboratory Data 24H LABS Laboratory Tests 2 06/17/17 12:17: Bedside Glucose (Misc Panel) 215H 06/17/17 16:10: Bedside Glucose (Misc Panel) 229H 06/17/17 20:31: Bedside Glucose (Misc Panel) 190H 06/18/17 06:41: White Blood Count 8.1, Red Blood Count 4.01, Hemoglobin 12.3, Hematocrit 37.0, Mean Corpuscular Volume 92.3, Mean Corpuscular Hemoglobin 30.6, Mean Corpuscular Hemoglobin Concent 33.2, Red Cell Distribution Width 13.3, Platelet Count 333, Neutrophils (%) (Auto) 62.8, Lymphocytes (%) (Auto) 21.6L, Monocytes (%) (Auto) 6.2H, Eosinophils (%) (Auto) 6.9H, Basophils (%) (Auto) 0.4, Neutrophils # (Auto) 5.1, Lymphocytes # (Auto) 1.8, Monocytes # (Auto) 0.5, Eosinophils # (Auto) 0.6H, Basophils # (Auto) 0.0, Large Unclassified Cells % 2.0, Large Unclassified Cells # 0.2, Anion Gap 9, Glomerular Filtration Rate 40.2L, Blood Urea Nitrogen 21H, Creatinine 1.41H, Sodium Level 142, Potassium Level 4.3, Chloride Level 107, Carbon Dioxide Level 26, Calcium Level 9.8, Aspartate Amino Transf (AST/SGOT) 22, Alanine Aminotransferase (ALT/SGPT) 24, Alkaline Phosphatase 134H, Total Bilirubin 0.4, Total Protein 7.5, Albumin 2.7L , Albumin/Globulin Ratio 0.56L CBC/BMP Laboratory Tests 06/18/17 06:41 Red Blood Count 4.01, Mean Corpuscular Volume 92.3, Mean Corpuscular Hemoglobin 30.6, Mean Corpuscular Hemoglobin Concent 33.2, Red Cell Distribution Width 13.3 , Neutrophils (%) (Auto) 62.8, Lymphocytes (%) (Auto) 21.6 L, Monocytes (%) ( Auto) 6.2 H, Eosinophils (%) (Auto) 6.9 H, Basophils (%) (Auto) 0.4, Neutrophils # (Auto) 5.1, Lymphocytes # (Auto) 1.8, Monocytes # (Auto) 0.5, Eosinophils # (Auto) 0.6 H, Basophils # (Auto) 0.0, Calcium Level 9.8, Aspartate Amino Transf (AST/SGOT) 22, Alanine Aminotransferase (ALT/SGPT) 24, Alkaline Phosphatase 134 H, Total Bilirubin 0.4, Total Protein 7.5, Albumin 2.7 L Microbiology Microbiology 06/16/17 Acid Fast Stain, Received Pending 06/16/17 Mycobacterial Culture, Received Pending 06/16/17 Fungal Smear, Received Pending 06/16/17 Fungal Culture, Received Pending 06/16/17 Gram Stain - Final, Resulted 06/16/17 Body Fluid Culture, Resulted Pending Chaz Klein MD Jun 18, 2017 08:36
[2017-06-18] MEDS: HumaLOG INSULIN (NovoLOG) PER UNIT SC SCH ×4 (08:43→21:00)
[2017-06-18 09:35] VITALS: BP 166/88
[2017-06-18] MEDS: OMEPRAZOLE 20 MG CAP PO SCH (09:55)
[2017-06-18] MEDS: VITAMIN D 1,000 INTERNATIONAL UNITS TABLET PO SCH (09:55)
[2017-06-18] MEDS: ALLOPURINOL 300 MG TAB PO SCH (09:55)
[2017-06-18] MEDS: GABAPENTIN 100 MG CAP PO SCH ×3 (09:56→21:30)
[2017-06-18] MEDS: CYANOCOBALAMIN 500 MCG TAB PO SCH (09:59)
[2017-06-18] MEDS: LOSARTAN 25 MG TAB PO SCH (09:59)
[2017-06-18] MEDS: **hydrALAZINE** 10 MG TAB PO SCH ×2 (10:00→21:35)
[2017-06-18] MEDS: SENOKOT S TAB PO SCH ×2 (10:00→21:30)
[2017-06-18] MEDS: CARVedilol 12.5 MG TAB PO SCH ×2 (10:00→21:34)
[2017-06-18] MEDS: FLUoxetine 20 MG CAP PO SCH (10:00)
[2017-06-18] MEDS ORDERED: MAG SULF 1GM/100ML (MAG RUN) 1 GM in APPROPRIATE DILUENT 1 EA IV ONE (10:00)
[2017-06-18] MEDS: amLODIPine 5 MG TAB PO SCH (10:01)
[2017-06-18] MEDS: AZELASTINE 137MCG NASAL SPY 30 ML (ASTELIN) SCH ×2 (10:02→21:31)
[2017-06-18] MEDS: MAGNESIUM OXIDE 400 MG TAB (MAG-OX) PO SCH ×2 (10:32→21:29)
[2017-06-18] MEDS: LEVEMIR (INSULIN DETEMIR) 1 UNITS/0.01ML SC SCH ×2 (10:33→21:00)
[2017-06-18] MEDS: DICLOFENAC EPOLAMINE 1.3 % PATCH TOP SCH ×2 (10:33→21:00)
[2017-06-18 13:48] VITALS: BP 134/74
--- NOTE | 2017-06-18 16:48 | REP ---
Chest x-ray: Two views. History: Pleural effusion. Comparison study: June 16, 2017. Findings: The right pleural fluid collection persists. There is some discoid atelectasis in the left perihilar and lower lobe region. There is blunting of the left lateral pleural angles and posterior pleural angle. No new infiltrate is seen. Impression: New blunting left lateral and posterior pleural angles. Plate-like atelectasis left mid lung zone. Right pleural effusion unchanged. Signed by Jhony Pond MD 06/18/2017 06:03 P
[2017-06-18] MEDS: SIMVASTATIN 40 MG TAB PO SCH (21:29)
[2017-06-18 22:00] VITALS: BP 126/74
[2017-06-19] MEDS: HEPARIN SOD (PORCINE) 5000 UNITS/ML VIAL SQ SCH ×3 (05:43→21:10)
[2017-06-19 06:00] VITALS: BP 136/88
[2017-06-19] MEDS: HumaLOG INSULIN (NovoLOG) PER UNIT SC SCH ×4 (07:30→21:09)
[2017-06-19] MEDS: LEVEMIR (INSULIN DETEMIR) 1 UNITS/0.01ML SC SCH ×2 (09:00→21:08)
[2017-06-19] MEDS: AZELASTINE 137MCG NASAL SPY 30 ML (ASTELIN) SCH ×2 (09:00→21:08)
[2017-06-19] MEDS: ALLOPURINOL 300 MG TAB PO SCH (09:04)
[2017-06-19] MEDS: LOSARTAN 25 MG TAB PO SCH (09:04)
[2017-06-19] MEDS: MAGNESIUM OXIDE 400 MG TAB (MAG-OX) PO SCH ×2 (09:05→21:09)
[2017-06-19] MEDS: FLUoxetine 20 MG CAP PO SCH (09:05)
[2017-06-19] MEDS: CYANOCOBALAMIN 500 MCG TAB PO SCH (09:05)
[2017-06-19] MEDS: VITAMIN D 1,000 INTERNATIONAL UNITS TABLET PO SCH (09:05)
[2017-06-19] MEDS: **hydrALAZINE** 10 MG TAB PO SCH ×2 (09:06→21:10)
[2017-06-19] MEDS: CARVedilol 12.5 MG TAB PO SCH ×2 (09:06→21:10)
[2017-06-19] MEDS: SENOKOT S TAB PO SCH ×2 (09:06→21:10)
[2017-06-19] MEDS: amLODIPine 5 MG TAB PO SCH (09:06)
[2017-06-19] MEDS: OMEPRAZOLE 20 MG CAP PO SCH (09:07)
[2017-06-19] MEDS: GABAPENTIN 100 MG CAP PO SCH ×3 (09:07→21:08)
[2017-06-19] MEDS: DICLOFENAC EPOLAMINE 1.3 % PATCH TOP SCH ×2 (09:08→21:00)
--- NOTE | 2017-06-19 09:30 | IPNPDOC ---
Subjective Date Seen The patient was seen on 06/19/17. Subjective Chief Complaint/HPI The patient is a 62-year-old female admitted with a reason for visit of Pleural Effusion, Right. Constitutional: Denies: Fever, Night Sweats Skin: Denies: Rash Pulmonary: Reports: Cough, Pleuritic Chest Pain (about same, maybe a little better.) Cardiovascular: Reports: Palpitations, Paroxysmal Noc. Dyspnea Gastrointestinal: Reports: Vomiting, Abdominal Pain, Diarrhea Genitourinary: Reports: Dysuria, Frequency Hematologic: Reports: Bruising Objective Physical Examination General Exam: Positive: Alert, No Acute Distress Eye Exam: Positive: PERRLA, Negative: Sclera icteric Neck Exam: Positive: Supple, Negative: JVD Chest Exam: Positive: Diminished, Other (soft velcro like sound heard right posterolateral base.), Negative: Normal air movement Heart Exam: Positive: Rate Normal, Regular Rhythm Abdomen Exam: Positive: Normal bowel sounds, Soft, Negative: Tenderness Extremity Exam: Negative: Edema Assessment /Plan Problems (1) Pleural effusion, right Status: Acute Response to Treatment: Improving Problem Specific Plan: Monitor Clinically, Repeat Labs Problem Text: 06/19: no change. in right effusion, loculated appearance. left atelectasis. reviewed images with Dr. Simmons who suggested that she would likely benefit from chest tube and possible use of tPA to breakup adhesions. Dr. Brantley consulted and situation reviewed by phone. Plan then is to move patient to PCU where he will assess her with likely right chest tube placement. 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 She had been treated with several days of Azithromycin, then moxifloxicin before discharge at last hospitalization. 06/18: repeat cxr to assess potential reaccumulation. relatively high LDH and protein identify this process to be exudate. she is experiencing left chest pleuritic pain which I believe is secondary to recent pneumonia, cough. not much relief with cyclobenzaprine and tylenol. will try topical diclofenac. 06/17 - Right pleural effusion. CT:Large loculated right pleural effusion as an interval change. Tiny left pleural effusion also likely loculated. Left upper lobe infiltrate has decreased in size. The previous right lower lobe infiltrate is no longer identified. Thoracentesis done by IR. Cx Pending. Will order a repeat CXR for tomorrow AM. May consider consulting Dr Brantley thoracic surgery. Left sided rib pain has improved with Rx. (2) NICKIE (acute kidney injury) Status: Chronic Response to Treatment: Stable Problem Specific Plan: Monitor Clinically, Repeat Labs Problem Text: 06/19 1.41 creat yesterday. 06/17 - Creat 1.26 (1.36 yesterday). (3) DM2 (diabetes mellitus, type 2) Status: Chronic Problem Specific Plan: Monitor Clinically, Repeat Labs Problem Text: On Levemir and SSI. (4) HTN (hypertension) Status: Chronic Problem Specific Plan: Monitor Clinically Problem Text: 06/18: would like to see her on agent other than hydralazine. will reduce dose to 10 bid from current 20 and adjust other agents as needed. at 60+yo, we only need her bp to be <150/90. hydralazine can cause drug induced lupus so will check SUHA, anti-DS DNA Ab. With drug induced lupus would expect Pos SUHA but Neg anti-DS DNA Ab. Plan/VTE VTE Prophylaxis Ordered?: Yes Plan Anticipated Discharge: Home VS, I&O, 24H, Fishbone Vital Signs/I&O Vital Signs Date Time Temp Pulse Resp B/P (MAP) Pulse Ox O2 Delivery O2 Flow Rate FiO2 06/19/17 09:06 76 06/19/17 09:04 140/86 06/19/17 06:00 97.3 19 92 Room Air Laboratory Data 24H LABS Laboratory Tests 2 06/18/17 11:45: Bedside Glucose (Misc Panel) 252H 06/18/17 17:14: Bedside Glucose (Misc Panel) 186H 06/18/17 21:35: Bedside Glucose (Misc Panel) 201H 06/19/17 05:52: Magnesium Level 1.4L 06/19/17 08:02: Bedside Glucose (Misc Panel) 191H Microbiology Microbiology 06/16/17 Acid Fast Stain, Received Pending 06/16/17 Mycobacterial Culture, Received Pending 06/16/17 Fungal Smear, Received Pending 06/16/17 Fungal Culture, Received Pending 06/16/17 Gram Stain - Final, Complete 06/16/17 Body Fluid Culture - Final, Complete Chaz Klein MD Jun 19, 2017 09:30
[2017-06-19] MEDS ORDERED: MAG SULF 1GM/100ML (MAG RUN) 1 GM in APPROPRIATE DILUENT 1 EA IV ONE (10:00)
[2017-06-19 10:48] LABS: MEAN CORPUSCULAR HEMOGLOBIN 30.4 pg (27.0-33.0); MEAN CORPUSCULAR HGB CONC 32.4 g/dl (32.0-36.5); MEAN CORPUSCULAR VOLUME 93.8 fl (80.0-96.0); RED CELL DISTRIBUTION WIDTH 13.4 % (11.5-14.5); WHITE BLOOD COUNT 6.9 K/mm3 (4.0-10.0)
[2017-06-19 11:21] LABS: CALCIUM LEVEL 9.3 MG/DL (8.8-10.2); CREATININE FOR GFR 1.49 MG/DL (0.55-1.02); GLOMERULAR FILTRATION RATE 37.7 (>45); POTASSIUM SERUM 4.3 MEQ/L (3.5-5.1)
--- NOTE | 2017-06-19 11:43 | REP ---
CT of the chest without IV contrast for localization of empyema: Comparison is 06/16/2017. There is a loculated pleural fluid collection in the right hemithorax along the right lateral chest wall extending from the inferior portion of the right upper lobe inferiorly to the lateral sulcus of the right lower lobe. It extends posteriorly and medially circumferentially around the right lower lobe and into the posterior sulcus on the right. There is a small loculated pleural fluid collection on the left along the medial border of the medial basilar segment of the left lower lobe. Signed by Calin Walker MD 06/19/2017 11:34 A
[2017-06-19 12:15] VITALS: BP 159/84
[2017-06-19] MEDS ORDERED: LIDOCAINE 1% MDV 20ML VIAL As Ordered ONE (13:43)
[2017-06-19 14:40] VITALS: BP 139/86
[2017-06-19] MEDS ORDERED: ALTEPLASE 2 MG/2 ML VIAL (J2997 PER 1MG) XX ONE (15:00)
[2017-06-19 15:03] LABS: RBC PLEURAL FLUID 17 (<10mm3 cells/uL); TNC PLEURAL FLUID 490 cells/uL (0-20)
[2017-06-19 15:12] LABS: BF DIFF IF INDICATED? YES (NO)
--- NOTE | 2017-06-19 15:17 | REP ---
TWO-VIEW CHEST: Two views of the chest are performed and compared to a prior study of 06/18/2017. Right pleural-based opacity is again seen unchanged. There is placement of a right pigtail pleural drainage catheter posteriorly. No pneumothorax is seen. The remainder of the study is unchanged. IMPRESSION: Placement of right pleural pigtail drainage catheter posteriorly on the right. No pneumothorax. Signed by Calin Doan MD 06/19/2017 07:22 P
[2017-06-19 15:30] LABS: LDH, BODY FLUID 158 U/L (NOT ESTABLISHED); TOTAL PROTEIN, BODY FLUID 5.1 G/DL (NOT ESTABLISHED)
[2017-06-19 16:00] VITALS: BP 149/78
[2017-06-19] MEDS: ACETAMINOPHEN TAB 650MG DOSE (2X325MG) PO PRN ×2 (17:56→23:35)
--- NOTE | 2017-06-19 19:29 | REP ---
Ultrasound-guided right thoracentesis with catheter placement The procedure was performed under the direct supervision of Dr. Doan. The risks and benefits of the procedure were explained to the patient and informed consent was obtained. The right pleural effusion was localized using ultrasound guidance. The skin was prepped and draped in a sterile fashion. 1% Xylocaine was used as a a local anesthetic. Using ultrasound guidance a 10 [place] Sk[place] APDL catheter was inserted using trocar technique. 30 ml of tanner colored fluid was withdrawn and sent to lab. The catheter was affixed to the skin and a sterile dressing was applied. The catheter was connected to a Pleur-Evac. The patient tolerated the procedure well and there were no immediate complications. Reviewed by JL Stone 06/19/2017 03:02 PSigned by Calin Doan MD 06/19/2017 07:20 P
[2017-06-19 19:58] VITALS: BP 120/69
[2017-06-19] MEDS: SIMVASTATIN 40 MG TAB PO SCH (21:10)
[2017-06-19 23:59] VITALS: BP 127/77
[2017-06-20 04:00] VITALS: BP 124/70
[2017-06-20] MEDS: HEPARIN SOD (PORCINE) 5000 UNITS/ML VIAL SQ SCH ×3 (05:41→21:28)
[2017-06-20 05:42] LABS: MEAN CORPUSCULAR HEMOGLOBIN 30.6 pg (27.0-33.0); MEAN CORPUSCULAR HGB CONC 33.6 g/dl (32.0-36.5); MEAN CORPUSCULAR VOLUME 91.3 fl (80.0-96.0); RED CELL DISTRIBUTION WIDTH 13.2 % (11.5-14.5); WHITE BLOOD COUNT 10.2 K/mm3 (4.0-10.0)
[2017-06-20 05:59] LABS: ALBUMIN 2.5 GM/DL (3.2-5.2); ALBUMIN/GLOBULIN RATIO 0.56 (1.00-1.93); BILIRUBIN,TOTAL 0.4 MG/DL (0.2-1.0); CALCIUM LEVEL 9.1 MG/DL (8.8-10.2); CREATININE FOR GFR 1.6 MG/DL (0.55-1.02); GLOMERULAR FILTRATION RATE 34.8 (>45); MAGNESIUM LEVEL 1.3 MG/DL (1.8-2.4); POTASSIUM SERUM 4.1 MEQ/L (3.5-5.1)
--- NOTE | 2017-06-20 07:49 | CR ---
DATE OF CONSULTATION: 06/19/2017 The patient is seen at the request of Dr. Klein for a persistent right pleural effusion. The patient is a 62-year-old white female who is under the care of [facility] ([facility]) and who does not give a very good history. She is quite communicative but is difficult to elicit a consistent history. Nonetheless, from what I gather from both the medical record and from her, is that she was admitted to [facility] with pneumonia. Her pneumonia did not respond, and she was transferred here where she was placed on Avelox. She has become progressively more short of breath over the past 6-8 months. She used to be able to walk from her home to [place], which is about a block and a half, without getting short of breath and now she does get short of breath. She is able to walk around her house and not get short of breath. There has been no cough, no sputum production. There has been no fever, chills, sweats or night sweats and there is no dysphagia. Her weight fluctuates up and down a few pounds. She has not noted paroxysmal nocturnal dyspnea or orthopnea. She sleeps in a water bed. In the last week, she has complained of aching to sharp chest pain on the right side. This is increased with taking a deep breath. It is also increased with a cough. She is trying not to cough secondary to the pain. It is located in her inferior posterior hemithorax. PAST MEDICAL ILLNESSES: According to the patient: Diabetes. Hypertension. Gout. Arthritis. 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 Heartburn with gastroesophageal reflux disease. PAST SURGICAL HISTORY: Breast biopsy. Cholecystectomy. Lower gastrointestinal (GI) endoscopies. Discectomy. Renal stone removal. HABITS: Does not smoke, does not drink and there is no use of illicit drugs. TRAVEL HISTORY: None outside [facility]. 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 EXPOSURES: She has a cat and one bird at home, a cockatoo. Throughout her life, she has had numerous birds, ranging from the above cockatoo, parakeets and parrots. There is one cat at home. FAMILY HISTORY: Does not know the whereabouts of her biological father or mother. She has been in foster care. She presently is under the care of [facility] but lives alone. REVIEW OF SYSTEMS: CONSTITUTIONAL: See history of the present illness. EYES: Without diplopia, without prior jaundice, without amaurosis fugax. NOSE: Without epistaxis. MOUTH: Has dentures, which she is not wearing at the time. RESPIRATORY: See history of the present illness. CARDIAC: See history of the present illness. She does note that her feet do swell from "extra fluid." There is no orthopnea. No paroxysmal nocturnal dyspnea (PND). No tachycardia or palpitations and no prior history of myocardial infarctions. GASTROINTESTINAL: Without nausea, vomiting, constipation. She does have diarrhea. Without melena, hematochezia, hematemesis or abdominal pain. GENITOURINARY: Without dysuria or hematuria but has had renal stones removed. NEUROLOGIC: Without paresthesias or paralyses, although it is listed that she does have neuropathy. She used to have epilepsy as a child, but it has not given her problems since childhood. LYMPHATICS: Without lumps and bumps in her neck, axilla or groin. HEMATOLOGIC: Without prolonged bleeding times. PSYCHIATRIC: Without treated anxieties, depressions or psychoses. MEDICATIONS AT HOME: - allopurinol 300 mg nightly - amlodipine 5 mg daily - carvedilol 12.5 mg twice a day - fluoxetine 20 mg daily - gabapentin 100 mg three times a day - glimepiride 4 mg twice a day - hydralazine 10 mg twice a day - NovoLog insulin subcu every night 25 units - Lantus insulin 45 units twice a day - losartan 25 mg daily - omeprazole 40 mg daily - ropinirole 1 mg nightly - simvastatin 80 mg nightly PHYSICAL EXAMINATION: An obese white female in no acute distress. VITAL SIGNS: Temperature is 97.8 with a heart rate of 82 and is sinus rhythm, respiratory rate of 20 without the use of accessory muscles. She is 90% saturated on 2 liters nasal cannula, and her blood pressure is 139/86. EYES: Pupils equal, round and reactive to light. Extraocular motor intact. Sclerae nonicteric. HEAD: Normocephalic. NOSE: Without deformity. MOUTH: Shows her mucous membranes to be pink and moist. Lips and commissures without lesions. There is no thrush. She is edentulous. NECK: Neck is supple. There is no jugular venous distention. No subcutaneous emphysema. Trachea is midline. There is no lymphadenopathy. She has 2+ carotid upstrokes without carotid bruits. There is no thyromegaly. LUNGS: Show equal breath sounds on either side. I cannot tell if her percussion note is full to the diaphragm through her obesity. She has inspiratory crackles on both sides during inspiration. CARDIAC EXAM: Without murmurs, clicks, gallops or rubs. I cannot feel her point of maximum impulse (PMI). S1, S2 normal. ABDOMEN: Soft, nontender. Bowel sounds are positive. There is no hepatomegaly. No costovertebral angle tenderness. EXTREMITIES: Show 2+ pretibial edema. No calf tenderness. No differential swelling of the upper extremities. SKIN: Warm, dry and perfused without cyanosis or mottling, including that of the nail beds and the knees. NEUROLOGIC: Shows II-XII intact along with gross motor and gross sensation intact. Gait is not tested. PSYCHIATRIC: Shows her to be awake and alert and knows where she is and what today is. White count today is 6.9 with a hemoglobin and hematocrit of 12.7 and 39.3 respectively, and a platelet count of 325. Yesterday's differential shows 62% neutrophils, 21% lymphocytes, 6% monocytes. There are no immature forms, no toxic granulations. Her electrolytes are normal today with a BUN and creatinine of 20 and 1.49, a glucose of 332 with a calcium of 9.3. Her pleural fluid withdrawn on 06/16/2017 showed a pH of 7.6 with a glucose of 165 and an LDH of 275 with a corresponding LDH of 224. This makes it normoglycemic and exudative. She had a total of 876 nucleated cells, 62% of which are lymphocytes, 11% are eosinophils and only 2% are neutrophils. This looks like an exudative, predominantly lymphocytic effusion, which is probably chronic with the increased eosinophil count. Her chest CT done today without contrast shows what looks to be a loculated right pleural effusion inferiorly. She also has a very small left pleural effusion medially and inferiorly. There looks to be an infiltrative pattern in the lingula coming by air bronchograms and, in fact, dilated bronchi to the periphery and the lingula. I see no emphysematous changes. I do think I make out the right adrenal gland and the left adrenal gland, and both are without masses and normal configuration. She has only one kidney on the left. It looks to have a normal configuration and is not a horseshoe kidney. IMPRESSION: 1. Loculated right pleural effusion. 2. Small loculated left pleural effusion. 3. Infiltrative bronchiectatic process in the left lingula. 4. Status post pneumonia, probably right side but perhaps left also. Previously on Avelox. 5. Diabetes. 6. Hypertension. 7. Gout. 9. Previous exposure to birds throughout her life. PLAN AND DISCUSSION: There is report of her being positive for Legionella. She has a positive Legionella antigen in her urine. I am not sure if that translates to her having a Legionella pneumonia. There are no other cultures identifying the organism. She has been on Avelox, which has been discontinued yesterday. I am surprised that she is not complaining of right-sided pain, but rather left-sided pain. I will drain the pleural effusion on the right side and if that does not drain completely, we will undertake a tPA pleurolysis. The idea is to preserve lung function and not let her lung become entrapped.
[2017-06-20 08:00] VITALS: BP 127/77
[2017-06-20] MEDS ORDERED: MAG SULF 1GM/100ML (MAG RUN) 1 GM in APPROPRIATE DILUENT 1 EA IV ONE (08:45)
--- NOTE | 2017-06-20 08:57 | IPNPDOC ---
Subjective Date Seen The patient was seen on 06/20/17. Subjective Chief Complaint/HPI The patient is a 62-year-old female admitted with a reason for visit of Pleural Effusion, Right. Events since last encounter Patient is c/o pain at the site of the pigtail catheter insertion Constitutional: Denies: Chills, Fever ENT: Denies: Head Aches Pulmonary: Denies: Dyspnea, Cough Cardiovascular: Denies: Chest Pain Gastrointestinal: Denies: Nausea, Vomiting, Abdominal Pain, Diarrhea Genitourinary: Denies: Dysuria Neurological: Denies: Weakness, Numbness Objective Physical Examination General Exam: Positive: Alert, No Acute Distress Eye Exam: Positive: PERRLA, Negative: Sclera icteric Neck Exam: Positive: Supple, Negative: JVD Chest Exam: Positive: Diminished, Other (soft velcro like sound heard right posterolateral base.), Negative: Normal air movement Heart Exam: Positive: Rate Normal, Regular Rhythm Abdomen Exam: Positive: Normal bowel sounds, Soft, Negative: Tenderness Extremity Exam: Negative: Edema Skin Exam: Positive: Nl turgor and temperature, Other skin issue (site of catheter insertion is c/d/i) Assessment /Plan Problems (1) Pleural effusion, right Status: Acute Response to Treatment: Improving Problem Specific Plan: Monitor Clinically, Repeat Labs Problem Text: 06/20: IR placed right pleural pigtail drainage catheter on 06/19, which is being managed by Dr. Brantley; she also received a dose of alteplase; Gram stain/culture from 06/16 is negative, gram stain from 06/19 is negative; other tests (AFB, mycobacterial, funal) of pleural fluid are pending. 06/19: No change in right effusion, loculated appearance. Left atelectasis. Reviewed images with Dr. Simmons who suggested that she would likely benefit from chest tube and possible use of tPA to breakup adhesions. Dr. Brantley was consulted and situation reviewed by phone. 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 She had been treated with several days of Azithromycin, then moxifloxicin before discharge at last hospitalization, which should be adequate coverage. 06/18: repeat cxr to assess potential reaccumulation. relatively high LDH and protein identify this process to be exudate. she is experiencing left chest pleuritic pain which I believe is secondary to recent pneumonia, cough. not much relief with cyclobenzaprine and tylenol. will try topical diclofenac patch. 06/17 - Right pleural effusion. CT:Large loculated right pleural effusion as an interval change. Tiny left pleural effusion also likely loculated. Left upper lobe infiltrate has decreased in size. The previous right lower lobe infiltrate is no longer identified. Thoracentesis done by IR on 06/16. (2) NICKIE (acute kidney injury) Status: Chronic Response to Treatment: Stable Problem Specific Plan: Monitor Clinically, Repeat Labs Problem Text: 06/20: Cr is trending up, Cr 1.6 today; baseline Cr ~1.4; I encouraged her to drink today - will recheck BMP in the morning and hold off on IVF for now. (3) DM2 (diabetes mellitus, type 2) Status: Chronic Problem Specific Plan: Monitor Clinically, Repeat Labs Problem Text: On Levemir and SSI. (4) HTN (hypertension) Status: Chronic Problem Specific Plan: Monitor Clinically Problem Text: 06/20: BP is at goal on losartan, carvedilol, amlodipine, and hydralazine; SUHA negative; will d/c hydralazine today. 06/18: would like to see her on agent other than hydralazine. will reduce dose to 10 bid from current 20 and adjust other agents as needed. at 60+yo, we only need her bp to be <150/90. hydralazine can cause drug induced lupus so will check SUHA, anti-DS DNA Ab. With drug induced lupus would expect Pos SUHA but Neg anti-DS DNA Ab. (5) Hypomagnesemia Status: Acute Response to Treatment: Worse Problem Text: IV mag run 1 g x1 today; continue PO mag Plan/VTE VTE Prophylaxis Ordered?: Yes Plan Anticipated Discharge: Home VS, I&O, 24H, Fishbone Vital Signs/I&O Vital Signs Date Time Temp Pulse Resp B/P (MAP) Pulse Ox O2 Delivery O2 Flow Rate FiO2 06/20/17 04:00 96.8 75 18 124/70 (88) 90 Room Air 06/19/17 12:40 2.0 Laboratory Data 24H LABS Laboratory Tests 2 06/19/17 10:33: Anion Gap 8, Glomerular Filtration Rate 37.7L, Blood Urea Nitrogen 20H, Creatinine 1.49H, Sodium Level 143, Potassium Level 4.3, Chloride Level 105, Carbon Dioxide Level 30, Calcium Level 9.3, Lactate Dehydrogenase 158 06/19/17 11:15: Bedside Glucose (Misc Panel) 319H 06/19/17 13:55: Body Fluid pH 7.589, Body Fluid pH Source PLEURAL, Body Fluid Neutrophils 2, Body Fluid Lymphocytes 92, Body Fluid Eosinophils 3, Body Fluid Monocytes/ Macrophages 3, Body Fluid Glucose Source PLEURAL, Body Fluid Glucose 284, Body Fluid Protein Source PLEURAL, Body Fluid Total Protein 5.1, Body Fluid Albumin Source PLEURAL, Body Fluid Albumin 2.4, Body Fluid LDH Source PLEURAL, Body Fluid Lactate Dehydrogenase 158, Body Fluid Amylase Source PLEURAL, Body Fluid Amylase 35, Body Fluid Cholesterol 69, Body Fluid Cholesterol Source PLEURAL, Body Fluid Triglyceride Source PLEURAL, Body Fluid Triglycerides 62, Pleural Fluid Source PLEURAL, Pleural Fluid Color ORANGE, Pleural Fluid Appearance HAZY , Pleural Fluid RBC (Auto) 17, Pleural Fluid Total Nucleated Cells 490H 06/19/17 16:27: Bedside Glucose (Misc Panel) 235H 06/19/17 20:57: Bedside Glucose (Misc Panel) 269H 06/20/17 05:08: Anion Gap 9, Glomerular Filtration Rate 34.8L, Blood Urea Nitrogen 29H, Creatinine 1.60H, Sodium Level 141, Potassium Level 4.1, Chloride Level 106, Carbon Dioxide Level 26, Calcium Level 9.1, Aspartate Amino Transf (AST/SGOT) 22 , Alanine Aminotransferase (ALT/SGPT) 24, Alkaline Phosphatase 125H, Total Bilirubin 0.4, Total Protein 7.0, Albumin 2.5L, Magnesium Level 1.3L, Albumin/ Globulin Ratio 0.56L CBC/BMP Laboratory Tests 06/19/17 10:33 Red Blood Count 4.19, Mean Corpuscular Volume 93.8, Mean Corpuscular Hemoglobin 30.4, Mean Corpuscular Hemoglobin Concent 32.4, Red Cell Distribution Width 13.4 , Calcium Level 9.3 06/20/17 05:08 Red Blood Count 4.00, Mean Corpuscular Volume 91.3, Mean Corpuscular Hemoglobin 30.6, Mean Corpuscular Hemoglobin Concent 33.6, Red Cell Distribution Width 13.2 , Calcium Level 9.1, Aspartate Amino Transf (AST/SGOT) 22, Alanine Aminotransferase (ALT/SGPT) 24, Alkaline Phosphatase 125 H, Total Bilirubin 0.4 , Total Protein 7.0, Albumin 2.5 L Microbiology Microbiology 06/19/17 Acid Fast Stain, Received Pending 06/19/17 Mycobacterial Culture, Received Pending 06/19/17 Fungal Smear, Received Pending 06/19/17 Fungal Culture, Received Pending 06/19/17 Gram Stain - Final, Resulted 06/19/17 Anaerobic Culture, Resulted Pending 06/19/17 Body Fluid Culture, Received Pending 06/16/17 Acid Fast Stain, Received Pending 06/16/17 Mycobacterial Culture, Received Pending 06/16/17 Fungal Smear, Received Pending 06/16/17 Fungal Culture, Received Pending 06/16/17 Gram Stain - Final, Complete 06/16/17 Body Fluid Culture - Final, Complete BRYON TOMPKINS MD Jun 20, 2017 08:28
[2017-06-20] MEDS: HumaLOG INSULIN (NovoLOG) PER UNIT SC SCH ×4 (09:16→20:28)
[2017-06-20] MEDS: LEVEMIR (INSULIN DETEMIR) 1 UNITS/0.01ML SC SCH ×2 (09:16→20:28)
[2017-06-20] MEDS: VITAMIN D 1,000 INTERNATIONAL UNITS TABLET PO SCH (10:18)
[2017-06-20] MEDS: AZELASTINE 137MCG NASAL SPY 30 ML (ASTELIN) SCH ×2 (10:18→20:26)
[2017-06-20] MEDS: CYANOCOBALAMIN 500 MCG TAB PO SCH (10:19)
[2017-06-20] MEDS: GABAPENTIN 100 MG CAP PO SCH ×3 (10:19→20:27)
[2017-06-20] MEDS: OMEPRAZOLE 20 MG CAP PO SCH (10:19)
[2017-06-20] MEDS: ALLOPURINOL 300 MG TAB PO SCH (10:20)
[2017-06-20] MEDS: MAGNESIUM OXIDE 400 MG TAB (MAG-OX) PO SCH ×2 (10:20→20:27)
[2017-06-20] MEDS: SENOKOT S TAB PO SCH ×2 (10:20→20:27)
[2017-06-20] MEDS: FLUoxetine 20 MG CAP PO SCH (10:20)
[2017-06-20] MEDS: LOSARTAN 25 MG TAB PO SCH (10:21)
[2017-06-20] MEDS: amLODIPine 5 MG TAB PO SCH (10:22)
[2017-06-20] MEDS: CARVedilol 12.5 MG TAB PO SCH ×2 (10:22→20:26)
[2017-06-20] MEDS: DICLOFENAC EPOLAMINE 1.3 % PATCH TOP SCH ×2 (10:23→20:28)
[2017-06-20 12:03] LABS: CC BF DIFF EXAM CYTOCENTRIFUGE
--- NOTE | 2017-06-20 12:16 | REP ---
CHEST, TWO VIEWS: Two views of the chest are performed and compared to prior study of 06/18/2017. Right pleural fluid collection has improved. Small amount of residual is noted. Mild pleural and parenchymal opacity in the left lung base is unchanged. Cardiomediastinal silhouette is unchanged. IMPRESSION: Decreased right pleural fluid collection. Signed by Calin Doan MD 06/20/2017 07:35 P
--- NOTE | 2017-06-20 12:48 | IPN ---
DATE: 06/20/2017 Ms. Stewart is feeling better today. She can breathe better, and her pain on the left side is almost resolved. There is some residual pain from the chest catheter but that is being well controlled. I am grateful that her left-sided pain is decreased as there was no overwhelming reason why she should have it. Her vital signs show a maximum temperature (T max) of 98.1 with a heart rate that ranges between 77 and 69 and is sinus rhythm, respiratory rate of 18 to 20 without the use of accessory muscles who is 90% saturated on room air and whose blood pressure is ranging between 127/77 to 124/70. Her intake and output over the past 24 hours has been recorded as 1360 in and 4160 out for a negativity of 2800 mL. She has put out 3600 mL in urine output and 560 mL overnight from the chest catheter, with an additional 300 mL in the last 12 hours. There is no air leak. Her weight today is recorded as 140 kg. Her weight has been all over the place, and I think there is a problem with weighing her, her weighing 89.5 kg yesterday and 311 kg the day before. I speak with the nursing staff. On physical examination, her lungs show equal breath sounds on either side. There are bibasilar crackles during inspiration. Percussion notes are full to the diaphragm. Cardiac exam is without murmurs, clicks, gallops or rubs. I cannot feel her point of maximum impulse (PMI) through her morbid obesity. S1, S2 are normal. Abdomen is soft and nontender. Bowel sounds are positive. There is no hepatomegaly. No costovertebral angle tenderness. Maybe trace pretibial edema. I suspect most of the sensation is subcutaneous tissue rather than edema, as I can feel no real pitting. There is no differential swelling of the upper extremities. Her skin is warm, dry and perfused without cyanosis or mottling, including that of the nail beds and the knees. Neck is supple. There is no jugular venous distention, no subcutaneous emphysema. Trachea is midline. Mouth shows her mucous membranes to be pink and moist. Lips and commissures without lesions. There is no thrush. Eyes show her pupils to be equal and reactive. Extraocular motions intact. Sclerae anicteric. Neurologic shows II-XII intact along with gross motor and gross sensation intact. Gait is not tested. Psychiatric shows her to be awake and alert, oriented times three. She has appropriate mood and affect. Her white count today is 10.2 with a hemoglobin and hematocrit of 12.3 and 36.5 with a platelet count of 316. There is no differential on her today. Her electrolytes are normal with a BUN and creatinine, however, of 29 and 1.6, which is slightly above her admission of 1.36. Nonetheless, she is being diuresed. Calcium is 9.1 with a corresponding albumin of 2.5 with a normal AST and ALT. Her SUHA screen is negative, as is her rheumatoid factor. Pleural fluid has been returned as predominantly lymphocytic and mildly exudative with an LDH of 158 with a corresponding serum LDH of 158. Triglycerides were only 62. This looks to be a lymphocytic exudative effusion, probably secondary to an underlying pneumonia, which has been previously treated. Her chest x-ray today is markedly improved with complete resolution of the loculated pleural effusion. There is still some blunting of the right costophrenic angle. There may be a small infiltrative process posteriorly on the lateral chest x-ray and inferiorly. I did note yesterday that she looked to have bronchiectasis and infiltration of the lingula laterally on the left side. IMPRESSION: 1. Loculated right pleural effusion, resolved with tPA pleurolysis and a pigtail catheter. 2. Small loculated left pleural effusion. 3. Infiltrative bronchiectatic process in the left lingula. 4. Status post pneumonia, probably right side, previously on Avelox. 5. Diabetes. 6. Hypertension. 7. Gout. 8. Previous exposure to birds throughout her life. PLAN AND DISCUSSION: I will take her off suction today. It looks as though the tPA pleurolysis worked well. Will continue the chest catheter until the output decreases to below 200 mL a day.
[2017-06-20 15:49] VITALS: BP 135/85
[2017-06-20] MEDS: ACETAMINOPHEN TAB 650MG DOSE (2X325MG) PO PRN (17:31)
[2017-06-20 20:00] VITALS: BP 122/76
[2017-06-20] MEDS: SIMVASTATIN 40 MG TAB PO SCH (20:27)
[2017-06-20 23:59] VITALS: BP 143/88
[2017-06-21] MEDS: ACETAMINOPHEN TAB 650MG DOSE (2X325MG) PO PRN ×4 (02:07→21:40)
[2017-06-21 04:00] VITALS: BP 126/67
[2017-06-21] MEDS: HEPARIN SOD (PORCINE) 5000 UNITS/ML VIAL SQ SCH ×3 (05:51→21:38)
[2017-06-21 06:07] LABS: CALCIUM LEVEL 9.6 MG/DL (8.8-10.2); CREATININE FOR GFR 1.52 MG/DL (0.55-1.02); GLOMERULAR FILTRATION RATE 36.9 (>45); MAGNESIUM LEVEL 1.6 MG/DL (1.8-2.4); POTASSIUM SERUM 4.4 MEQ/L (3.5-5.1)
[2017-06-21 08:00] VITALS: BP 130/80
[2017-06-21] MEDS: LEVEMIR (INSULIN DETEMIR) 1 UNITS/0.01ML SC SCH ×2 (08:50→21:40)
[2017-06-21] MEDS: HumaLOG INSULIN (NovoLOG) PER UNIT SC SCH ×4 (08:50→21:00)
[2017-06-21] MEDS: CYANOCOBALAMIN 500 MCG TAB PO SCH (08:51)
[2017-06-21] MEDS: VITAMIN D 1,000 INTERNATIONAL UNITS TABLET PO SCH (08:51)
[2017-06-21] MEDS: ALLOPURINOL 300 MG TAB PO SCH (08:52)
[2017-06-21] MEDS: FLUoxetine 20 MG CAP PO SCH (08:52)
[2017-06-21] MEDS: GABAPENTIN 100 MG CAP PO SCH ×3 (08:52→21:41)
[2017-06-21] MEDS: amLODIPine 5 MG TAB PO SCH (08:52)
[2017-06-21] MEDS: OMEPRAZOLE 20 MG CAP PO SCH (08:52)
[2017-06-21] MEDS: LOSARTAN 25 MG TAB PO SCH (08:52)
[2017-06-21] MEDS: SENOKOT S TAB PO SCH ×2 (08:52→21:00)
[2017-06-21] MEDS: DICLOFENAC EPOLAMINE 1.3 % PATCH TOP SCH ×2 (08:53→21:38)
[2017-06-21] MEDS: CARVedilol 12.5 MG TAB PO SCH ×2 (08:53→21:42)
[2017-06-21] MEDS: MAGNESIUM OXIDE 400 MG TAB (MAG-OX) PO SCH ×2 (08:53→21:40)
[2017-06-21] MEDS: AZELASTINE 137MCG NASAL SPY 30 ML (ASTELIN) SCH ×2 (08:53→21:39)
--- NOTE | 2017-06-21 09:10 | IPNPDOC ---
Subjective Date Seen The patient was seen on 06/21/17. Subjective Chief Complaint/HPI The patient is a 62-year-old female admitted with a reason for visit of Pleural Effusion, Right. Events since last encounter Patient states her breathing is normal today. Her only complaint is pain at the site of her pigtail catheter insertion. Constitutional: Denies: Chills, Fever Pulmonary: Denies: Dyspnea, Cough Cardiovascular: Denies: Chest Pain, Palpitations, Orthopnea, Lt Headedness Gastrointestinal: Denies: Nausea, Vomiting, Abdominal Pain, Diarrhea Genitourinary: Denies: Dysuria Neurological: Denies: Weakness, Numbness, Confusion Objective Physical Examination General Exam: Positive: Alert, No Acute Distress Eye Exam: Positive: PERRLA, Negative: Sclera icteric Neck Exam: Positive: Supple, Negative: JVD Chest Exam: Positive: Diminished, Other (soft velcro like sound heard right posterolateral base.), Negative: Normal air movement Heart Exam: Positive: Rate Normal, Regular Rhythm Abdomen Exam: Positive: Normal bowel sounds, Soft, Negative: Tenderness Extremity Exam: Negative: Edema Skin Exam: Positive: Nl turgor and temperature, Other skin issue (site of catheter insertion is covered in a banadage and is otherwise c/d/i) Assessment /Plan Problems (1) Pleural effusion, right Status: Acute Response to Treatment: Improving Problem Specific Plan: Monitor Clinically, Repeat Labs Problem Text: 06/21: Chest tube drainage 10 ml so far today; Dr. Brantley may remove the chest tube today - if so, she may be ready for discharge tomorrow; repeat CXR was done this morning and is pending. 06/20: Dr. Brantley discontinued suction; chest tube drainage 300 ml 06/19: IR placed right pleural pigtail drainage catheter for loculated right pleural effusion; she also received one dose of tPA to breakup adhesions. 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 She had been treated with several days of Azithromycin, then moxifloxicin before discharge at last hospitalization, which should be adequate coverage. 06/18: repeat cxr to assess potential reaccumulation. relatively high LDH and protein identify this process to be exudate. she is experiencing left chest pleuritic pain which I believe is secondary to recent pneumonia, cough. not much relief with cyclobenzaprine and tylenol. will try topical diclofenac patch. 06/17 - CT:Large loculated right pleural effusion as an interval change. Tiny left pleural effusion also likely loculated. Left upper lobe infiltrate has decreased in size. The previous right lower lobe infiltrate is no longer identified. Thoracentesis done by IR on 06/16. (2) NICKIE (acute kidney injury) Status: Chronic Response to Treatment: Stable Problem Specific Plan: Monitor Clinically, Repeat Labs Problem Text: Cr is stable and close to baseline Cr of ~1.4. (3) DM2 (diabetes mellitus, type 2) Status: Chronic Problem Specific Plan: Monitor Clinically, Repeat Labs Problem Text: On Levemir and SSI. (4) HTN (hypertension) Status: Chronic Problem Specific Plan: Monitor Clinically Problem Text: 06/21: BP has been at goal off of hydralazine 06/20: BP is at goal on losartan, carvedilol, amlodipine, and hydralazine; SUHA negative; will d/c hydralazine today. 06/18: would like to see her on agent other than hydralazine. will reduce dose to 10 bid from current 20 and adjust other agents as needed. at 60+yo, we only need her bp to be <150/90. hydralazine can cause drug induced lupus so will check SUHA, anti-DS DNA Ab. With drug induced lupus would expect Pos SUHA but Neg anti-DS DNA Ab. (5) Hypomagnesemia Status: Acute Response to Treatment: Worse Problem Text: 06/21: Mag remains low; will give 2 mag runs today and continue PO mag 06/20: IV mag run 1 g x1 today; continue PO mag Plan/VTE VTE Prophylaxis Ordered?: Yes Plan Anticipated Discharge: Home VS, I&O, 24H, [facility], [place] Vital Signs/I&O Vital Signs Date Time Temp Pulse Resp B/P (MAP) Pulse Ox O2 Delivery O2 Flow Rate FiO2 06/21/17 08:53 69 130/80 06/21/17 08:00 96.6 20 95 Room Air 06/19/17 12:40 2.0 I&O- Last 24 Hours up to 6 AM 06/22/17 06:00 Intake Total 0 ml Output Total 800 ml Balance -800 ml Laboratory Data 24H LABS Laboratory Tests 2 06/20/17 11:34: Bedside Glucose (Misc Panel) 288H 06/21/17 05:18: Anion Gap 8, Glomerular Filtration Rate 36.9L, Blood Urea Nitrogen 27H, Creatinine 1.52H, Sodium Level 143, Potassium Level 4.4, Chloride Level 108H, Carbon Dioxide Level 27, Calcium Level 9.6, Magnesium Level 1.6L CBC/BMP Laboratory Tests 06/21/17 05:18 Calcium Level 9.6 Microbiology Microbiology 06/19/17 Acid Fast Stain, Received Pending 06/19/17 Mycobacterial Culture, Received Pending 06/19/17 Fungal Smear, Received Pending 06/19/17 Fungal Culture, Received Pending 06/19/17 Gram Stain - Final, Complete 06/19/17 Anaerobic Culture - Final, Complete 06/19/17 Body Fluid Culture - Final, Complete 06/16/17 Acid Fast Stain, Received Pending 06/16/17 Mycobacterial Culture, Received Pending 06/16/17 Fungal Smear, Received Pending 06/16/17 Fungal Culture, Received Pending 06/16/17 Gram Stain - Final, Complete 06/16/17 Body Fluid Culture - Final, Complete BRYON TOMPKINS MD Jun 21, 2017 09:10
[2017-06-21] MEDS: MAG SULF 1GM/100ML (MAG RUN) 1 GM in APPROPRIATE DILUENT 1 EA IV SCH ×2 (09:17→10:34)
[2017-06-21 12:00] VITALS: BP 119/70
--- NOTE | 2017-06-21 13:22 | REP ---
CHEST, TWO VIEWS: Two views of the chest are performed and compared to prior study of 06/20/2017. Right pigtail chest catheter is again noted. Mild bibasilar pleural and parenchymal opacities are stable. Cardiomediastinal silhouette is unchanged. IMPRESSION: Stable exam. Signed by Calin Doan MD 06/21/2017 07:15 P
--- NOTE | 2017-06-21 13:23 | IPN ---
DATE: 06/21/2017 Ms. Stewart is doing fairly well. She is not complaining of shortness of breath, and her chest tube output has markedly decreased over the past three shifts. Her vital signs show a maximum temperature (T max) of 98.3 with a heart rate that ranges between 78 and 69 and is sinus rhythm, respiratory rate of 16 to 20 without the use of accessory muscles who is 95% saturated now on room air., whose blood pressure is ranging between 126/67 to 143/88. Her intake and output over the past 24 hours has been recorded as 590 in and 2325 out for a negativity of 1700 mL. Early yesterday morning she put out 290 mL overnight from 12 to 7 and then in the last three shifts she has put out 10 to 0 mL. PHYSICAL EXAMINATION: Shows her lungs having equal breath sounds on either side. Percussion notes are full to the diaphragm. She has some residual rales in the right side. There is no subcutaneous emphysema over the chest wall. Cardiac exam is without murmurs, clicks, gallops or rubs. I cannot feel her point of maximum impulse (PMI). S1, S2 are normal. Abdomen is soft and nontender. Bowel sounds are positive. There is no hepatomegaly. No costovertebral angle tenderness that I can feel through her morbid obesity. Extremities show no pretibial edema. No calf tenderness. No differential swelling of the upper extremities. Skin is warm, dry and perfused without cyanosis or mottling, including that of the nail beds and the knees. Neck is supple. There is no jugular venous distention, no subcutaneous emphysema. Trachea is midline. Mouth shows her mucous membranes to be pink and moist. Lips and commissures without lesions. There is no thrush. Eyes show her pupils to be equal and reactive. Extraocular motions intact. Sclerae anicteric. Neurologic shows II-XII intact along with gross motor and gross sensation intact. Gait is also intact. Psychiatric shows her to be awake and alert, oriented times three with appropriate mood and affect and conversational. Her white count today is 10.2, up from 6.9 yesterday. Hemoglobin and hematocrit are 12.3 and 36.5 respectively, essentially unchanged from 12.7 and 39.3 yesterday. Platelet count is 316 and stable. Chemistries show normal electrolytes with a BUN and creatinine of 27 and 1.52, which is her baseline. Glucose is 172 with a calcium of 9.6 and a magnesium of 1.6. Her chest x-ray shows the lung fully expanded to the chest wall. There is no subcutaneous emphysema. Right costophrenic angle is clearing. Left costophrenic angle looks a little bit blunted. I see some plate atelectasis changes but no overt infiltrates. IMPRESSION: 1. Loculated right pleural effusion, resolved with tPA pleurolysis and a pigtail catheter. 2. Small loculated left pleural effusion. 3. Infiltrative bronchiectatic process in the left lingula. 4. Status post pneumonia, probably right side, previously on Avelox. 5. Diabetes. 6. Hypertension. 7. Gout. 8. Previous exposure to birds throughout her life. 9. Chronic renal failure. 10. Hypomagnesemia being treated with magnesium runs. PLAN AND DISCUSSION: I will discontinue her chest tube catheter today. If there is no reaccumulation tomorrow and if all goes well, I would have no objection to her being discharged tomorrow to be followed up on an outpatient basis.
[2017-06-21 16:00] VITALS: BP 129/79
[2017-06-21 20:00] VITALS: BP 144/75
[2017-06-21] MEDS: SIMVASTATIN 40 MG TAB PO SCH (21:41)
[2017-06-21] MEDS ORDERED: SLF 3 ML SYR IV PRN (22:00)
[2017-06-21] MEDS: SLF 3 ML SYR IV SCH (22:15)
[2017-06-22] VITALS: BP 142/81
[2017-06-22 04:00] VITALS: BP 139/87
[2017-06-22] MEDS: SLF 3 ML SYR IV SCH ×2 (05:01→14:00)
[2017-06-22] MEDS: HEPARIN SOD (PORCINE) 5000 UNITS/ML VIAL SQ SCH ×2 (05:01→14:25)
[2017-06-22 05:34] LABS: MEAN CORPUSCULAR HEMOGLOBIN 31.3 pg (27.0-33.0); RED CELL DISTRIBUTION WIDTH 13.2 % (11.5-14.5); WHITE BLOOD COUNT 8.1 K/mm3 (4.0-10.0)
[2017-06-22 05:43] LABS: CALCIUM LEVEL 10.1 MG/DL (8.8-10.2); CREATININE FOR GFR 1.47 MG/DL (0.55-1.02); GLOMERULAR FILTRATION RATE 38.3 (>45); POTASSIUM SERUM 4.1 MEQ/L (3.5-5.1)
[2017-06-22 07:12] LABS: MAGNESIUM LEVEL 1.5 MG/DL (1.8-2.4)
[2017-06-22 08:05] VITALS: BP 125/74
[2017-06-22] MEDS: DICLOFENAC EPOLAMINE 1.3 % PATCH TOP SCH (08:11)
[2017-06-22] MEDS: HumaLOG INSULIN (NovoLOG) PER UNIT SC SCH ×2 (08:11→12:15)
[2017-06-22] MEDS: LEVEMIR (INSULIN DETEMIR) 1 UNITS/0.01ML SC SCH (08:11)
[2017-06-22] MEDS: AZELASTINE 137MCG NASAL SPY 30 ML (ASTELIN) SCH (08:11)
[2017-06-22 08:12] VITALS: BP 124/74
[2017-06-22] MEDS: CARVedilol 12.5 MG TAB PO SCH (08:12)
[2017-06-22] MEDS: amLODIPine 5 MG TAB PO SCH (08:12)
[2017-06-22] MEDS: VITAMIN D 1,000 INTERNATIONAL UNITS TABLET PO SCH (08:12)
[2017-06-22] MEDS: GABAPENTIN 100 MG CAP PO SCH ×2 (08:13→16:00)
[2017-06-22] MEDS: FLUoxetine 20 MG CAP PO SCH (08:13)
[2017-06-22] MEDS: OMEPRAZOLE 20 MG CAP PO SCH (08:13)
[2017-06-22] MEDS: LOSARTAN 25 MG TAB PO SCH (08:13)
[2017-06-22] MEDS: ALLOPURINOL 300 MG TAB PO SCH (08:13)
[2017-06-22] MEDS: MAGNESIUM OXIDE 400 MG TAB (MAG-OX) PO SCH (08:13)
[2017-06-22] MEDS: CYANOCOBALAMIN 500 MCG TAB PO SCH (08:14)
[2017-06-22] MEDS: SENOKOT S TAB PO SCH (08:14)
--- NOTE | 2017-06-22 09:46 | REP ---
CHEST, TWO VIEWS: Two views of the chest are performed. Right chest pigtail catheter has been removed. Bibasilar parenchymal opacities are stable. Cardiomediastinal silhouette is unchanged. There is no pneumothorax. IMPRESSION: Removal of right chest pleural drainage catheter. Otherwise stable. Signed by Calin Doan MD 06/22/2017 05:31 P
[2017-06-22] MEDS: MAG SULF 1GM/100ML (MAG RUN) 1 GM in APPROPRIATE DILUENT 1 EA IV SCH ×2 (10:31→12:14)
--- NOTE | 2017-06-22 11:00 | DSES ---
DATE OF ADMISSION: 06/20/2017 DATE OF DISCHARGE: 06/22/2017 PRIMARY CARE PHYSICIAN: Dr. Ronel aCmarillo. ATTENDING PHYSICIAN: Dr. Ronel Camarillo. HISTORY OF PRESENT ILLNESS: 62-year-old female who had a recent admission to [facility] from 05/31 to 06/04 secondary to pneumonia and pleural effusion. After finishing her course of Avelox and prednisone presented to [facility] ED for left flank pain for 2 days with associated shortness of breath. Patient was found to have right pleural effusion with loculation. She was subsequently admitted to Family Medicine service. HOSPITAL COURSE: CT of chest confirmed small loculated pleural fluid collection on the left along the medial border of the medial basilar segment left lower lobe. Patient has consultation with Dr. Last Brantley on 06/19 for persistent right pleural effusion which is on the right side. Pleural effusion was subsequently drained and chest tube was placed by Dr. Brantley. Patient tolerated well. Multiple cytologies of pleural fluid are pending. Chest tube was removed on 06/21 with repeat chest x-ray today which shows no change. Cultures were negative for any active infection, however, after fasting, microbacterial culture, fungal smear and fungal culture remain pending. On physical exam today, patient is afebrile. Vital signs are stable. She denies blurred vision, dizziness, shortness of breath, chest pain, heart palpitations or dyspnea with exertion. Oxygen saturation remains in the mid 90s on room air. Most recent labs do show a lower magnesium of 1.5. Patient takes magnesium oxide three times daily at home. She has been receiving it twice daily in the facility. She did receive two runs of magnesium yesterday and will receive two more prior to her discharge to home. Most recent creatinine 1.47 with a BUN of 26. Patient's baseline creatinine appears to run between 1.2 and 1.5 historically. HEENT: Neck is supple without lymphadenopathy or jugular venous distention (JVD). Cardiovascular: Heart rate and rhythm are regular. Pulmonary: Lungs are clear with slight diminishing to the right lower lobe. Abdomen: Soft, nontender with positive bowel sounds times all four quadrants. Neuro: She is alert and oriented times three. She is cooperative with exam and able to answer questions. ASSESSMENT/DISCHARGE DIAGNOSES: 1. Loculated pleural effusion. 2. Acute kidney injury. 3. Hypomagnesemia. SECONDARY DIAGNOSES INCLUDE: 1. Diabetes. 2. Hypertension. 3. Chronic constipation. PLAN: Patient will be discharged home. Diet is as tolerated with carbohydrate consistent. Activity is as tolerated. She will have a magnesium level drawn in 3 days and will followup with her primary care provider within the next 7 days. MEDICATIONS ARE FOLLOWS: - allopurinol 300 mg by mouth daily at bedtime - amlodipine 5 mg by mouth daily - azelastine one spray to each nostril twice daily as needed for allergies - carvedilol 12.5 mg by mouth twice daily - cyclobenzaprine 5 mg by mouth three times daily - fluoxetine 20 mg by mouth daily - gabapentin 100 mg capsule two by mouth twice daily - glimepiride 4 mg by mouth twice daily - hydralazine 10 mg by mouth daily - NovoLog 25 units subcutaneous daily at bedtime - Lantus 45 units subcutaneous twice daily - loperamide 2 mg by mouth four times daily as needed diarrhea - losartan potassium 25 mg half tablet daily - magnesium oxide 400 mg by mouth twice daily - multivitamin one tablet daily - omeprazole 40 mg by mouth daily - ropinirole 1 mg by mouth daily at bedtime - simvastatin 80 mg by mouth daily at bedtime Patient is discharged in stable and satisfactory condition with no further questions at time of discharge. [facility]
[2017-06-22 12:00] VITALS: BP 134/80
--- NOTE | 2017-06-23 05:48 | IPN ---
DATE: 06/22/2017 Ms. Stewart is doing quite well today. There is no pain, no shortness of breath and no cough or sputum production. Her chest x-ray shows the lung fully expanded to the chest wall and there is no residual pleural fluid. Her vital signs show a maximum temperature (T max) of 98.3 with a heart rate that ranges between 65 and 82 and is sinus rhythm, respiratory rate that is constant at 18, who is 95% saturated on room air and whose blood pressure is ranging between 142/81 to 124/74. Her intake and output over the past 24 hours has been recorded as 1271 in and 3135 out for a negativity of 1864 mL. Chest tube was removed yesterday. She weighs 139.9 kg today compared to 140.1 kg yesterday. On physical examination, she has some faint rales in the right lower base. She has coarse rhonchi, which clear with coughing. Percussion note is full to the diaphragm. Cardiac exam is without murmurs, clicks, gallops or rubs. I cannot feel her point of maximum impulse (PMI). S1, S2 are normal. Abdomen is soft, nontender. Bowel sounds are positive. There is no hepatomegaly and no costovertebral angle (CVA) tenderness. Extremities show no trace pretibial edema. No calf tenderness. No differential swelling of the upper extremities. Skin is warm, dry and perfused without cyanosis or mottling, including that of the nail beds and the knees. Neck is supple. There is no jugular venous distention, no subcutaneous emphysema. Trachea is midline. Mouth shows her mucous membranes to be pink and moist. Lips and commissures without lesions. There is no thrush. Eyes show her pupils to be equal and reactive. Extraocular motions are intact. Sclerae anicteric. Neuro shows II-XII intact along with gross motor and gross sensation intact. Gait is not tested. Psychiatric shows her to be awake and alert, oriented times three with appropriate mood and affect and conversational. Her white count today is 8.1 with hemoglobin and hematocrit of 12.2 and 35.8, essentially unchanged from yesterday. Platelet count is 294 and stable. Chemistries show normal electrolytes with BUN and creatinine of 26 and 1.47, which is at her baseline. Glucose is 232 with a calcium of 10.1. Magnesium is 1.5. Her albumin was 2.5 on 06/20/2017. Her chest x-ray shows her lung fully expanded to the chest wall and there is no residual loculated pleural effusion. There are some atelectatic changes in the left costophrenic angle, which is also seen on the lateral film. IMPRESSION: 1. Loculated right pleural effusion resolved with tPA pleurolysis and a pigtail catheter. 2. Small loculated left pleural effusion and/or atelectasis. 3. Infiltrative bronchiectatic process in the left lingula. 4. Status post pneumonia on the right, previously on Avelox. 5. Diabetes. 6. Hypertension. 7. Gout. 8. Previous exposure to birds throughout her life. 9. Chronic renal failure. 10. Hypomagnesemia. PLAN AND DISCUSSION: From a thoracic surgical point of view, I can see no reason why she cannot be discharged. I will see her back in the office in 10 days in post hospitalization followup with a chest x-ray. SARAH
== END 2017-06-22 16:00 | disposition home or self-care (01) | DRG 187 ==
LOC: M ED 10:43 → M ED INP 12:37 → M MSPAV 16:43 → M PCU 06-19 12:07 → OBSVTOIN 06-20 08:46
PROVIDERS: ADMIT General Practice; ATTEND Family Medicine
PROC: 0W9930Z Drainage of Right Pleural Cavity with Drainage Device, Percutaneous Approach (ICD-10-PCS; principal; 2017-06-16)
PROC: 0WH93YZ Insertion of Other Device into Right Pleural Cavity, Percutaneous Approach (ICD-10-PCS; 2017-06-19)
DX: J90 Pleural effusion, not elsewhere classified (principal); N17.9 Acute kidney failure, unspecified; Z68.43 Body mass index [BMI] 50.0-59.9, adult; Q60.0 Renal agenesis, unilateral; E11.40 Type 2 diabetes mellitus with diabetic neuropathy, unspecified; I12.9 Hypertensive chronic kidney disease with stage 1 through stage 4 chronic kidney disease, or unspecified chronic kidney disease; E83.42 Hypomagnesemia; E78.5 Hyperlipidemia, unspecified; G25.81 Restless legs syndrome; J30.9 Allergic rhinitis, unspecified; N18.3 Chronic kidney disease, stage 3 (moderate); K21.9 Gastro-esophageal reflux disease without esophagitis; M10.9 Gout, unspecified; F32.9 Major depressive disorder, single episode, unspecified; R91.8 Other nonspecific abnormal finding of lung field; E66.9 Obesity, unspecified; Z90.49 Acquired absence of other specified parts of digestive tract; Z79.4 Long term (current) use of insulin; Z79.899 Other long term (current) drug therapy

== ENCOUNTER → 2017-07-02 | Outpatient (CLI) | payer MEDICARE, MEDICAID ==
[~2017-07-02] MED LIST changes: +MULT1TAB9 PO
--- NOTE | 2017-07-02 10:14 | REP ---
PA and lateral chest: Comparison is 06/22/2017. There is discoid atelectasis/scar peripherally in the left lung. There is discoid atelectasis/scar in the right costophrenic angle. There are no acute infiltrates. No pleural effusions. The cardiac size is normal. The aj and mediastinum are unremarkable. There is thoracic scoliosis convex right, unchanged. Impression: Bilateral discoid atelectasis. Scoliosis. Signed by Calin Walker MD 07/02/2017 10:05 A
== END ==
LOC: M SMT 09:33
PROVIDERS: ATTEND Thoracic Surgery (Cardiothoracic Vascular Surgery)
DX: J90 Pleural effusion, not elsewhere classified (principal)

== ENCOUNTER → 2017-08-07 | Outpatient (REF) | payer MEDICARE, MEDICAID | LOC: M LAB REF 16:48 | PROVIDERS: ATTEND Internal Medicine Nephrology | DX: E83.42 Hypomagnesemia (principal) ==

== ENCOUNTER → 2017-08-25 | Outpatient (CLI) | payer MEDICARE, MEDICAID ==
[~2017-08-25] MED LIST changes: +AMIL25TA PO; +FAMO1TAB11 PO; +GABA-282 PO; +VITMTA PO
--- NOTE | 2017-08-25 12:23 | REPMRS ---
Patient History The patient states she has not had a clinical breast exam in over a year. Patient is postmenopausal. Benign radio exam breast specimen of the right breast, December 17, 2016. Benign stereotatic loc for ea lesion of the right breast, December 17, 2016. Digital Woman Screen Mammo: August 25, 2017 - Exam #: [id number] Bilateral CC and MLO view(s) were taken. Technologist: Fabienne Phelps, Technologist Prior study comparison: January 30, 2010, digital bilateral screening mammo performed at [facility]. FINDINGS: The breast tissue is almost entirely fat. There is a needle biopsy marker clip in the right breast. There has been no change in the appearance of the mammogram from the prior studies. There is no interval development of dominant mass, architectural distortion, or clustered microcalcification typical of malignancy. ASSESSMENT: BI-RADS/ACR category 2 mammogram. Benign finding(s). Recommendation Routine screening mammogram of both breasts in 1 year (for women over age 40). This mammogram was interpreted with the aid of an FDA-approved computer-aided dectection system. Electronically Signed By: Dmitriy Pond MD 08/25/17 [id number]
== END ==
LOC: M WHC 10:32
PROVIDERS: ATTEND Family Medicine
DX: Z12.31 Encounter for screening mammogram for malignant neoplasm of breast (principal)

== ENCOUNTER 2017-09-01 18:50 | Observation (INO) | payer MEDICARE, MEDICAID ==
[~2017-09-01] VITALS: Ht 167.6 cm; Wt 141.2 kg
[~2017-09-01 18:50] MED LIST changes: -AMIL25TA PO; -FAMO1TAB11 PO; -GABA-282 PO; -VITMTA PO
[2017-09-01] MEDS ORDERED: LR 1,000 ML IV ONE ×2 (20:00→22:00)
[2017-09-01 20:23] LABS: BASO # 0.1 10^3/uL (0.0-0.2); BASO % 0.4 % (0.0-1.0); EOS # 0.4 10^3/uL (0.0-0.50); EOS % 3.5 % (0.0-3.0); IMMATURE GRANULOCYTE % 0.4 % (0-0); LYMPH # 1.5 10^3/uL (1.5-4.5); LYMPH % 12.1 % (24.0-44.0); MEAN CORPUSCULAR HEMOGLOBIN 29.2 pg (27.0-33.0); MEAN CORPUSCULAR HGB CONC 31.9 g/dl (32.0-36.5); MEAN CORPUSCULAR VOLUME 91.6 fl (80.0-96.0); MONO # 0.8 10^3/uL (0.0-0.8); MONO % 6.7 % (0.0-5.0); NEUTROPHILS # 9.5 10^3/uL (1.8-7.7); NEUTROPHILS % 76.9 % (36.0-66.0); PLATELET COUNT, AUTOMATED 246 10^3/uL (150-450); RED CELL DISTRIBUTION WIDTH 13.8 % (11.5-14.5); WHITE BLOOD COUNT 12.4 10^3/uL (4.0-10.0)
[2017-09-01] MEDS ORDERED: rOPINIRole 1MG TAB PO SCH (21:00)
[2017-09-01] MEDS ORDERED: HumaLOG INSULIN (NovoLOG) PER UNIT SC SCH (21:00)
[2017-09-01] MEDS ORDERED: SIMVASTATIN 40 MG TAB PO SCH (21:00)
[2017-09-01] MEDS ORDERED: ALLOPURINOL 300 MG TAB PO SCH (21:00)
[2017-09-01 21:20] LABS: ALBUMIN 3.6 GM/DL (3.2-5.2); ALBUMIN/GLOBULIN RATIO 0.84 (1.00-1.93); BILIRUBIN,TOTAL 0.6 MG/DL (0.2-1.0); CALCIUM LEVEL 9.4 MG/DL (8.8-10.2); CREATININE FOR GFR 1.58 MG/DL (0.55-1.02); GLOMERULAR FILTRATION RATE 35.3 (>45); TOTAL PROTEIN 7.9 GM/DL (6.4-8.2)
[2017-09-01 21:34] LABS: POTASSIUM SERUM 5.3 MEQ/L (3.5-5.1)
[2017-09-01] MEDS ORDERED: ONDANSETRON 4MG/2ML VIAL (J2405) IV PRN (22:45)
[2017-09-01] MEDS ORDERED: ACETAMINOPHEN TAB 650MG DOSE (2X325MG) PO PRN (22:45)
[2017-09-01] MEDS ORDERED: DEXTROSE 50% 50 ML SYRINGE IV PRN (23:00)
[2017-09-01] MEDS ORDERED: GLUCAGON FOR INJ 1 MG VIAL (J1610) SC PRN (23:00)
[2017-09-01] MEDS ORDERED: GLUCOSE 4 GM CHEW TABLET PO PRN (23:00)
[2017-09-01 23:36] LABS: SPECIFIC GRAVITY UR AUTO RFX 1.014 (1.002-1.035); SQUAM EPITHELIAL CELL UR AURFX 0 /HPF (0-6)
--- NOTE | 2017-09-01 23:53 | HPE ---
DATE OF ADMISSION: 09/01/2017 PRIMARY CARE PROVIDER: Dr. Ronel Camarillo HISTORY OF THE PRESENT ILLNESS: The patient is a 62-year-old female with a past medical history significant for insulin-dependent diabetes, peripheral neuropathy, hypertension, hypercholesterolemia, chronic kidney disease stage III, osteoarthritis, history of deep vein thrombosis (DVT)/pulmonary embolism (PE), gastroesophageal reflux disease (GERD), gout, depression, RLS, who presented to [facility] on 09/01/2017 for worsening nausea, vomiting and diarrhea. The patient stated since approximately 2 days ago, she started having persistent nausea and vomiting. She is not able to maintain any good oral intake. The patient also complains about generalized achy discomfort in the bilateral hands, bilateral legs. The patient also noted to have complete watery diarrhea. In the last 24 hours, the patient had around 10 watery stools. Denies any recent sick contact. Denied any recent antibiotic use. The patient is not sure whether she has a fever. Denies any abdominal pain, cough or chest pain. PAST MEDICAL HISTORY: Insulin-dependent diabetes. Peripheral neuropathy. Hypertension. Hypercholesterolemia. Chronic kidney disease stage III. Osteoarthritis. History of DVT/PE. Gastroesophageal reflux disease. Gout. Depression. RLS. Obesity. PAST SURGICAL HISTORY: Breast biopsy. Discectomy. Cholecystectomy. LEEP by Dr. Ellis. SOCIAL HISTORY: The patient lives alone. Denied tobacco use. Denied recreational drug use. Denied alcohol use. REVIEW OF SYSTEMS: GENERAL: The patient is not sure if she got fever or chills. Complained of poor oral intake for the past 2 days. HEENT: No vision change. No auditory changes. CARDIOVASCULAR: No chest pain. No palpitations. RESPIRATORY: No cough, no sputum production. No wheezes. GASTROINTESTINAL: Persistent nausea, vomiting and diarrhea for the past 2 days. More than 10 watery stools in the last 24 hours. MUSCULOSKELETAL: Achy type of discomfort at the bilateral upper and lower extremities. NEUROLOGICAL: The patient has baseline peripheral neuropathy. Denies any new numbness or tingling. HOME MEDICATIONS: - allopurinol 300 mg by mouth nightly - amlodipine 5 mg by mouth daily - carvedilol 12.5 mg by mouth twice a day - Flexeril 5 mg by mouth three times a day as needed for muscle spasm - Prozac 20 mg by mouth daily - gabapentin 200 mg by mouth three times a day - glimepiride 4 mg by mouth twice a day - hydralazine 20 mg by mouth twice a day - insulin NovoLog sliding scale before food - Lantus 45 units subcu twice a day - Imodium 2 mg by mouth as needed for diarrhea - losartan 12.5 mg by mouth daily - magnesium oxide 400 mg by mouth three times a day - multivitamin one tablet by mouth daily - omeprazole 40 mg by mouth daily - ropinirole 1 mg by mouth nightly - simvastatin 80 mg by mouth nightly OBJECTIVE: VITAL SIGNS: Temperature is 98.2, pulse is 93, respirations 18, blood pressure 162/87, pulse oximetry is 95% in room air. GENERAL: Fatigued. No sign of acute distress. Alert and oriented times three. Morbidly obese. HEENT: Normocephalic, atraumatic. Extraocular motor grossly intact. CARDIOVASCULAR: Positive S1, S2, regular rate. LUNGS: Clear to auscultation bilaterally. ABDOMEN: Soft, mild tenderness to palpation, mainly in the right upper quadrant. Bowel sounds present. No rebound, no guarding. EXTREMITIES: Some mild discomfort to palpation of bilateral lower extremities. No swelling. No sign of cyanosis. NEUROLOGICAL: Sensation to fine touch grossly intact. Decreased sensation bilateral in the periphery. Muscle strength 5/5. LABORATORY DATA: WBC 12.4, hemoglobin 14.3, hematocrit 44.8, platelet count is 246. Sodium is 142, potassium 5.3, chloride is 110, carbon dioxide 25, BUN 31, creatinine 1.58, GFR is 35.3, fasting glucose 227, calcium 9.4, total bilirubin 0.6, AST 50, ALT is 48, alkaline phosphatase 144, total protein 7.9, albumin 3.6, lipase 145. ASSESSMENT AND PLAN: 1. Frequent diarrhea with nausea and vomiting. Patient will be admitted to medical-surgical floor under observation status. Based on the history and the vitals, it seems the patient may have acute gastroenteritis. Will follow with a gastrointestinal (GI) panel. Maintain nausea, vomiting with intravenous (IV) Zofran. Will encourage diet as tolerated. If the patient's symptoms show better control, we may anticipate discharge in the next 1-2 days. 2. Insulin-dependent diabetes. Will be on Levemir, consistent carbohydrate diet and sliding scale before food and nightly. 3. Hypertension. Continue home medications. 4. Peripheral neuropathy. Continue gabapentin. 5. Chronic kidney disease stage III. Renal function at baseline. 6. History of deep vein thrombosis and pulmonary embolism. The patient stated she has been off the anticoagulation per her doctors. 7. Gastroesophageal reflux disease. Continue proton pump inhibitor (PPI). 8. Gout. On allopurinol. 9. Depression. On Prozac. 10. Morbid obesity with a body mass index (BMI) of 50. 11. Deep vein thrombosis prophylaxis. Heparin.
[2017-09-02 00:15] LABS: ERYTHROCYTE SEDIMENTATION RATE 14 mm/hr (0-30)
[2017-09-02] MEDS ORDERED: FAMO1TAB11 PO (00:16)
[2017-09-02] MEDS ORDERED: GABA-282 PO (00:16)
[2017-09-02] MEDS ORDERED: VITMTA PO (00:16)
[2017-09-02] MEDS ORDERED: AMIL25TA PO (00:16)
[2017-09-02] MEDS ORDERED: AZELASTINE 137MCG NASAL SPY 30 ML (ASTELIN) PRN (00:45)
[2017-09-02] MEDS ORDERED: LOPERAMIDE 2 MG CAP PO PRN (00:45)
[2017-09-02] MEDS ORDERED: CYCLOBENZAPRINE 5MG TABLET PO PRN (00:45)
--- NOTE | 2017-09-02 01:20 | REPUSA ---
CLINICAL HISTORY: Abdominal pain. TECHNIQUE: Multiple axial, sagittal and coronal CT images were obtained through the abdomen and pelvi s without administration of oral or IV contrast material. COMMENTS: Comparison to prior exam on 06/02/2017. Unchanged moderate sliding hiatal hernia. Prior cholecystectomy. Changes of panniculitis in the anterior abdominal wall. Absent right kidney, unchanged. Unchanged moderate hepatomegaly. Fluid filled small bowels. Prior cholecystectomy. There is no intra or extrahepatic biliary ductal dilatation. The spleen is normal. The pancreas is of normal contour and attenuation characteristics. There is no evidence of adrenal mass. The left kidney is normal in size, shape and configuration. No renal or ureteral calculi are identifi ed. There is no hydroureter or hydronephrosis. There is no evidence for appendicitis. There is no bowel wall thickening. No evidence for small or la rge bowel obstruction. There is no evidence of abdominal ascites or lymphadenopathy. There is no evidence of intrinsic or extrinsic bladder mass. There is no pelvic ascites or lymphadeno alicia. Images of the lung bases show no evidence of pleural or parenchymal mass. There are no pleural effusi ons. The bony structures are free of lytic or blastic lesions. Multilevel degenerative changes are seen in volving the thoracolumbar spine. Scattered calcifications are seen involving the aorta and major branches compatible with atherosclero sis. IMPRESSION: Comparison to prior exam on 06/02/2017. Unchanged moderate sliding hiatal hernia. Prior cholecystectomy. Changes of panniculitis in the anterior abdominal wall. Absent right kidney, unchanged. Unchanged moderate hepatomegaly. Fluid filled small bowels. Nonspecific finding. Possibly developing enteritis. Prior cholecystectomy. Thank you for your kind referral of this patient.
[2017-09-02] MEDS: NS 1,000 ML IV SCH ×2 (02:25→11:13)
[2017-09-02] MEDS: MAGNESIUM OXIDE 400 MG TAB (MAG-OX) PO SCH ×2 (02:25→08:59)
[2017-09-02] MEDS: FAMOTIDINE 20 MG TAB PO SCH ×2 (02:25→08:55)
[2017-09-02] MEDS: **hydrALAZINE** 10 MG TAB PO SCH ×2 (02:25→08:55)
[2017-09-02] MEDS: CARVedilol 12.5 MG TAB PO SCH ×2 (02:25→08:55)
[2017-09-02] MEDS: LEVEMIR (INSULIN DETEMIR) 1 UNITS/0.01ML SC SCH ×2 (02:25→08:54)
[2017-09-02] MEDS: GABAPENTIN 300 MG CAP PO SCH ×2 (02:25→08:55)
[2017-09-02 06:08] LABS: BASO % 0.5 % (0.0-1.0); EOS # 0.4 10^3/uL (0.0-0.50); IMMATURE GRANULOCYTE % 0.2 % (0-0); LYMPH # 1.8 10^3/uL (1.5-4.5); LYMPH % 21.6 % (24.0-44.0); MEAN CORPUSCULAR HEMOGLOBIN 29.4 pg (27.0-33.0); MEAN CORPUSCULAR HGB CONC 32.1 g/dl (32.0-36.5); MEAN CORPUSCULAR VOLUME 91.6 fl (80.0-96.0); MONO # 0.8 10^3/uL (0.0-0.8); MONO % 9.5 % (0.0-5.0); NEUTROPHILS # 5.2 10^3/uL (1.8-7.7); NEUTROPHILS % 63.2 % (36.0-66.0); PLATELET COUNT, AUTOMATED 202 10^3/uL (150-450); RED CELL DISTRIBUTION WIDTH 13.8 % (11.5-14.5); WHITE BLOOD COUNT 8.2 10^3/uL (4.0-10.0)
[2017-09-02 06:24] LABS: MAGNESIUM LEVEL 1.2 MG/DL (1.8-2.4)
[2017-09-02 06:44] LABS: ALBUMIN 2.8 GM/DL (3.2-5.2); ALBUMIN/GLOBULIN RATIO 0.67 (1.00-1.93); BILIRUBIN,TOTAL 0.6 MG/DL (0.2-1.0); CALCIUM LEVEL 9.1 MG/DL (8.8-10.2); CREATININE FOR GFR 1.3 MG/DL (0.55-1.02); GLOMERULAR FILTRATION RATE 44.2 (>45); POTASSIUM SERUM 4.5 MEQ/L (3.5-5.1)
--- NOTE | 2017-09-02 06:57 | ECGEPIP ---
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
[2017-09-02] MEDS: HEPARIN SOD (PORCINE) 5000 UNITS/ML VIAL SC SCH ×2 (07:24→14:00)
--- NOTE | 2017-09-02 07:27 | REP ---
PA and lateral chest: Comparison is 07/02/2017. There is a focal zone of discoid atelectasis versus parenchymal scar peripherally in the left mid lung, unchanged. The lung mendoza otherwise clear. Cardiac size is normal. The aj and mediastinum are unremarkable. There is thoracic scoliosis convex right, unchanged. No pleural effusions are identified. Impression: No pleural effusions are identified. Focal discoid atelectasis versus parenchymal scar in the left lung. Signed by Calin Walker MD 09/02/2017 07:18 A
[2017-09-02] MEDS: HumaLOG INSULIN (NovoLOG) PER UNIT SC SCH ×2 (07:30→12:00)
[2017-09-02 08:56] VITALS: BP 135/80
[2017-09-02] MEDS ORDERED: amLODIPine 5 MG TAB PO SCH (09:00)
[2017-09-02] MEDS ORDERED: aMILoride 5 MG TAB PO SCH (09:00)
[2017-09-02] MEDS ORDERED: OMEPRAZOLE 20 MG CAP PO SCH (09:00)
[2017-09-02] MEDS ORDERED: MULTIVITAMINS/MINERALS THERAP 1 TAB PO SCH (09:00)
--- NOTE | 2017-09-02 14:48 | DS.PDOC ---
Discharge Summary General Date of Admission Sep 01, 2017 at 22:43 Date of Discharge September 02, 2017 at 2:35 p.m. Primary Care Physician: BRYON CAMAIRLLO MD Attending Physician: JANE PEOPLES DO Discharge Summary PROCEDURES PERFORMED DURING STAY: [None]. ADMITTING DIAGNOSES: 1. frequent diarrhea with nausea and vomiting 2. insulin dependent diabetes mellitus 3. hypertension 4. peripheral neuropathy 5. CKD stage III 6. history of DVT and PE 7. GERD' 8. gout 9. depression 10. morbid obesity DISCHARGE DIAGNOSES: 1. gastroenteritis 2. insulin dependent diabetes mellitus 3. hypertension 4. peripheral neuropathy 5. CKD stage III 6. history of DVT and PE 7. GERD' 8. gout 9. depression 10. morbid obesity 11. hyperkalemia COMPLICATIONS/CHIEF COMPLAINT: Diarrhea. HISTORY OF PRESENT ILLNESS: The patient is a 62-year-old female with a past medical history significant for insulin-dependent diabetes, peripheral neuropathy, hypertension, hypercholesterolemia, chronic kidney disease stage III , osteoarthritis, history of deep vein thrombosis (DVT)/pulmonary embolism (PE), gastroesophageal reflux disease (GERD), gout, depression, RLS, who presented to [facility] on 09/01/2017 for worsening nausea, vomiting and diarrhea. The patient stated since approximately 2 days ago, she started having persistent nausea and vomiting. She is not able to maintain any good oral intake. The patient also complains about generalized achy discomfort in the bilateral hands, bilateral legs. The patient also noted to have complete watery diarrhea. In the last 24 hours, the patient had around 10 watery stools. Denies any recent sick contact. Denied any recent antibiotic use. The patient is not sure whether she has a fever. Denies any abdominal pain, cough or chest pain. HOSPITAL COURSE: She was gently rehydrated with NS. Imaging of abdomen was consistent with enteritis. She had Zofran available prn, but denied the need for it. By the afternoon of 09/02, she reported that her stool was firming up, and she felt well. She had advanced her diet and eaten a normal lunch of chicken nuggets, soup, and an orange, without nausea or vomiting. She wanted to go home and was discharged. DISCHARGE MEDICATIONS: Please see below. ALLERGIES: Please see below. PHYSICAL EXAMINATION ON DISCHARGE: VITAL SIGNS: Please see below. GENERAL: pleasant, obese, NAD HEENT: MMM NECK: supple CARDIOVASCULAR EXAMINATION: regular rate and rhythm, no murmurs, rubs, or gallops RESPIRATORY EXAMINATION: CTAB ABDOMINAL EXAMINATION: BS positive, soft, mild and diffuse tenderness, no rebounds/guarding/rigidity EXTREMITIES: trace edema SKIN: clean, dry, intact LABORATORY DATA: Please see below. IMAGING: CT abdomen and pelvis on 09/01 showed: Unchanged moderate sliding hiatal hernia. Prior cholecystectomy. Changes of panniculitis in the anterior abdominal wall. Absent right kidney, unchanged. Unchanged moderate hepatomegaly. Fluid filled small bowels. Nonspecific finding. Possibly developing enteritis. CXR 09/01 showed No pleural effusions are identified. Focal discoid atelectasis versus parenchymal scar in the left lung. PROGNOSIS: good ACTIVITY: [As tolerated]. DIET: consistent carb DISCHARGE PLAN: home DISPOSITION: . DISCHARGE INSTRUCTIONS: 1. f/u with Dr. Camarillo 2. plenty of clear fluids -- stay hydrated 3. call the office with any concerns ITEMS TO FOLLOWUP ON ON OUTPATIENT: 1. ongoing medical conditions DISCHARGE CONDITION: [Stable]. TIME SPENT ON DISCHARGE: Greater than 15 minutes. Vital Signs/I&Os Vital Signs Date Time Temp Pulse Resp B/P (MAP) Pulse Ox O2 Delivery O2 Flow Rate FiO2 09/02/17 08:56 83 135/80 09/02/17 07:24 98.3 18 97 Room Air Laboratory Data Labs 24H Laboratory Tests 2 09/01/17 20:16: Immature Granulocyte % (Auto) 0.4H, White Blood Count 12.4H, Red Blood Count 4.89, Hemoglobin 14.3, Hematocrit 44.8, Mean Corpuscular Volume 91.6, Mean Corpuscular Hemoglobin 29.2, Mean Corpuscular Hemoglobin Concent 31.9L, Red Cell Distribution Width 13.8, Platelet Count 246, Neutrophils (%) (Auto) 76.9H, Lymphocytes (%) (Auto) 12.1L, Monocytes (%) (Auto) 6.7H, Eosinophils (%) (Auto) 3.5H, Basophils (%) (Auto) 0.4, Neutrophils # (Auto) 9.5H, Lymphocytes # (Auto) 1.5, Monocytes # (Auto) 0.8, Eosinophils # (Auto) 0.4, Basophils # (Auto) 0.1, Immature Granulocyte # (Auto) 0.1H, Nucleated Red Blood Cells % (auto) 0.0, Erythrocyte Sedimentation Rate 14 09/01/17 20:49: Anion Gap 7L, Glomerular Filtration Rate 35.3L, Blood Urea Nitrogen 31H, Creatinine 1.58H, Sodium Level 142, Potassium Level 5.3H, Chloride Level 110H, Carbon Dioxide Level 25, Calcium Level 9.4, Aspartate Amino Transf (AST/SGOT) 50H, Alanine Aminotransferase (ALT/SGPT) 48, Alkaline Phosphatase 144H, Total Bilirubin 0.6, Total Protein 7.9, Albumin 3.6, C-Reactive Protein, Quantitative 1.41H, Albumin/Globulin Ratio 0.84L, Lipase 145 09/01/17 22:54: Urine Color YELLOW, Urine Appearance CLEAR, Urine pH 5.0, Urine Specific [place] 1.014, Urine Protein 2+H, Urine Glucose (UA) NEGATIVE, Urine Ketones NEGATIVE, Urine Blood NEGATIVE, Urine Nitrite NEGATIVE, Urine Bilirubin NEGATIVE , Urine Urobilinogen 0.2, Urine Leukocyte Esterase NEGATIVE, Urine WBC (Auto) 1 , Urine RBC (Auto) 1, Urine Hyaline Casts (Auto) 0, Urine Bacteria (Auto) NEGATIVE, Urine Squamous Epithelial Cells 0, Urine Sperm (Auto) 09/02/17 00:38: Bedside Glucose (Misc Panel) 139H 09/02/17 05:54: Immature Granulocyte % (Auto) 0.2H, White Blood Count 8.2, Red Blood Count 4.15 , Hemoglobin 12.2#, Hematocrit 38.0, Mean Corpuscular Volume 91.6, Mean Corpuscular Hemoglobin 29.4, Mean Corpuscular Hemoglobin Concent 32.1, Red Cell Distribution Width 13.8, Platelet Count 202, Neutrophils (%) (Auto) 63.2, Lymphocytes (%) (Auto) 21.6L, Monocytes (%) (Auto) 9.5H, Eosinophils (%) (Auto) 5.0H, Basophils (%) (Auto) 0.5, Neutrophils # (Auto) 5.2, Lymphocytes # (Auto) 1.8, Monocytes # (Auto) 0.8, Eosinophils # (Auto) 0.4, Basophils # (Auto) 0.0, Immature Granulocyte # (Auto) 0.0, Nucleated Red Blood Cells % (auto) 0.0, Anion Gap 7L, Glomerular Filtration Rate 44.2L, Blood Urea Nitrogen 27H, Creatinine 1.30H, Sodium Level 139, Potassium Level 4.5, Chloride Level 110H, Carbon Dioxide Level 22, Calcium Level 9.1, Aspartate Amino Transf (AST/SGOT) 45H, Alanine Aminotransferase (ALT/SGPT) 39, Alkaline Phosphatase 117, Total Bilirubin 0.6, Total Protein 7.0, Albumin 2.8#L, Magnesium Level 1.2L, Albumin/ Globulin Ratio 0.67L 09/02/17 08:09: Bedside Glucose (Misc Panel) 246H 09/02/17 12:01: Bedside Glucose (Misc Panel) 254H CBC/BMP Laboratory Tests 09/01/17 20:16 Red Blood Count 4.89, Mean Corpuscular Volume 91.6, Mean Corpuscular Hemoglobin 29.2, Mean Corpuscular Hemoglobin Concent 31.9 L, Red Cell Distribution Width 13.8, Neutrophils (%) (Auto) 76.9 H, Lymphocytes (%) (Auto) 12.1 L, Monocytes (% ) (Auto) 6.7 H, Eosinophils (%) (Auto) 3.5 H, Basophils (%) (Auto) 0.4, Neutrophils # (Auto) 9.5 H, Lymphocytes # (Auto) 1.5, Monocytes # (Auto) 0.8, Eosinophils # (Auto) 0.4, Basophils # (Auto) 0.1 09/01/17 20:49 Calcium Level 9.4, Aspartate Amino Transf (AST/SGOT) 50 H, Alanine Aminotransferase (ALT/SGPT) 48, Alkaline Phosphatase 144 H, Total Bilirubin 0.6 , Total Protein 7.9, Albumin 3.6 09/02/17 05:54 Red Blood Count 4.15, Mean Corpuscular Volume 91.6, Mean Corpuscular Hemoglobin 29.4, Mean Corpuscular Hemoglobin Concent 32.1, Red Cell Distribution Width 13.8 , Neutrophils (%) (Auto) 63.2, Lymphocytes (%) (Auto) 21.6 L, Monocytes (%) ( Auto) 9.5 H, Eosinophils (%) (Auto) 5.0 H, Basophils (%) (Auto) 0.5, Neutrophils # (Auto) 5.2, Lymphocytes # (Auto) 1.8, Monocytes # (Auto) 0.8, Eosinophils # (Auto) 0.4, Basophils # (Auto) 0.0, Calcium Level 9.1, Aspartate Amino Transf (AST/SGOT) 45 H, Alanine Aminotransferase (ALT/SGPT) 39, Alkaline Phosphatase 117, Total Bilirubin 0.6, Total Protein 7.0, Albumin 2.8 #L FSBS Laboratory Tests Test 09/02/17 00:38 09/02/17 08:09 09/02/17 12:01 Range/Units Bedside Glucose (Misc Panel) 139 246 254 80-115 MG/DL Discharge Medications Scheduled Allopurinol (Zyloprim) 300 Mg Tab, 300 MG PO QHS, (Reported) Amiloride HCl (Amiloride HCl) 2.5 Mg Tab, 2.5 MG PO DAILY, (Reported) Amlodipine Besylate (Amlodipine Besylate) 5 Mg Tab, 5 MG PO DAILY, (Reported) Carvedilol (Carvedilol) 12.5 Mg Tab, 12.5 MG PO BID, (Reported) Famotidine (Famotidine) 20 Mg Tab, 20 MG PO BID, (Reported) Gabapentin (Gabapentin) 300 Mg Cap, 300 MG PO TID, (Reported) Glimepiride (Glimepiride) 4 Mg Tab, 4 MG PO BID, (Reported) Hydralazine HCl (Hydralazine HCl) 10 Mg Tab, 20 MG PO BID, (Reported) Insulin Aspart (Novolog) 100 U/Ml Inj, 1 DOSE SC AC, (Reported) PER SLIDING SCALE Insulin Glargine (Lantus) 1 Units/0.01 Ml Susp, 45 UNITS SC BID, (Reported) Magnesium Oxide (Magnesium Oxide 400) 400 Mg Tab, 800 MG PO BID, (Reported) Multivitamins *[facility] STOCKED* (Thera M Plus *[facility] STOCKED*) 1 Tab Tab, 1 TAB PO DAILY, (Reported) Omeprazole (Omeprazole) 40 Mg Cap, 40 MG PO DAILY, (Reported) Ropinirole Hydrochloride (Ropinirole HCl) 1 Mg Tab, 1 MG PO QHS, (Reported) Simvastatin - High Dose (Zocor) 80 Mg Tab, 80 MG PO QHS, (Reported) Scheduled PRN Azelastine Hydrochloride (Azelastine HCl) 137 Mcg/Baring Spr, 1 SPRAY NA BID PRN for ALLERGIES, (Reported) Cyclobenzaprine HCl (Cyclobenzaprine HCl) 5 Mg Tab, 5 MG PO TID PRN for MUSCLE SPASMS, (Reported) Loperamide HCl (Loperamide HCl) 2 Mg Cap, 2 MG PO QID PRN for DIARRHEA, ( Reported) Allergies Coded Allergies: No Known Allergies (Verified , 03/05/17) JANE PEOPLES DO Sep 02, 2017 14:48
[2017-09-02 15:42] VITALS: BP 133/79
== END 2017-09-02 16:05 | disposition home or self-care (01) ==
LOC: M ED 18:50 → M ED INP 22:43
PROVIDERS: ADMIT Internal Medicine; ATTEND Family Medicine
DX: K52.9 Noninfective gastroenteritis and colitis, unspecified (principal); I12.9 Hypertensive chronic kidney disease with stage 1 through stage 4 chronic kidney disease, or unspecified chronic kidney disease; E10.42 Type 1 diabetes mellitus with diabetic polyneuropathy; E10.22 Type 1 diabetes mellitus with diabetic chronic kidney disease; N18.3 Chronic kidney disease, stage 3 (moderate); K21.9 Gastro-esophageal reflux disease without esophagitis; M10.9 Gout, unspecified; F32.9 Major depressive disorder, single episode, unspecified; E66.01 Morbid (severe) obesity due to excess calories; E87.5 Hyperkalemia; Z86.718 Personal history of other venous thrombosis and embolism; Z86.711 Personal history of pulmonary embolism; Z68.43 Body mass index [BMI] 50.0-59.9, adult; E87.8 Other disorders of electrolyte and fluid balance, not elsewhere classified; E78.00 Pure hypercholesterolemia, unspecified; M19.90 Unspecified osteoarthritis, unspecified site; G25.81 Restless legs syndrome; Z79.899 Other long term (current) drug therapy
CPT/HCPCS: 36415; 71020; 74176; 80053; 81001; 83690; 83735; 85025; 85652; 86140; 93005; 96372; 99284; G0378

== ENCOUNTER 2017-10-08 22:43 | Emergency (ER) | payer MEDICARE, MEDICAID ==
[2017-10-09 01:55] LABS: BASO % 0.4 % (0.0-1.0); EOS # 0.3 10^3/uL (0.0-0.50); EOS % 2.6 % (0.0-3.0); HEMATOCRIT 37.5 % (36.0-47.0); HEMOGLOBIN 12.2 g/dl (12.0-16.0); IMMATURE GRANULOCYTE % 0.3 % (0-0); LYMPH # 2.5 10^3/uL (1.5-4.5); LYMPH % 24.9 % (24.0-44.0); MEAN CORPUSCULAR HEMOGLOBIN 29.3 pg (27.0-33.0); MEAN CORPUSCULAR HGB CONC 32.5 g/dl (32.0-36.5); MEAN CORPUSCULAR VOLUME 90.1 fl (80.0-96.0); MONO # 1.1 10^3/uL (0.0-0.8); MONO % 10.6 % (0.0-5.0); NEUTROPHILS # 6.1 10^3/uL (1.8-7.7); NEUTROPHILS % 61.2 % (36.0-66.0); PLATELET COUNT, AUTOMATED 196 10^3/uL (150-450); RED BLOOD COUNT 4.16 10^6/uL (4.00-5.40); RED CELL DISTRIBUTION WIDTH 14.4 % (11.5-14.5)
[2017-10-09 02:01] LABS: D-DIMER QUANT 2304.7 ng/ml (<500)
[2017-10-09 02:10] LABS: ANION GAP 8 MEQ/L (8-16); BLOOD UREA NITROGEN 31 MG/DL (7-18); CALCIUM LEVEL 9.3 MG/DL (8.8-10.2); CARBON DIOXIDE LEVEL 24 MEQ/L (21-32); CHLORIDE LEVEL 108 MEQ/L (98-107); CK-MB VALUE MASS 4.2 NG/ML (0.0-3.6); CPK CREATINE PHOSPHOKINASE 174 U/L (26-192); CREATININE FOR GFR 1.42 MG/DL (0.55-1.02); GLOMERULAR FILTRATION RATE 39.9 (>45); GLUCOSE, FASTING 230 MG/DL (80-110); MB/CK RELATIVE INDEX 2.41 (< OR =4); POTASSIUM SERUM 4.3 MEQ/L (3.5-5.1); SODIUM LEVEL 140 MEQ/L (136-145); TROPONIN I < 0.02 NG/ML (< 0.10)
[2017-10-09 02:13] LABS: NT-PRO BNP 309 PG/ML (<125)
[2017-10-09] MEDS ORDERED: ISOVUE-370 76% 100ML VIAL (Q9967) As Ordered (02:17)
== END 2017-10-09 04:02 | disposition home or self-care (01) ==
LOC: M ED 22:43
DX: J06.9 Acute upper respiratory infection, unspecified (principal); E11.9 Type 2 diabetes mellitus without complications; I10 Essential (primary) hypertension; E78.5 Hyperlipidemia, unspecified; K21.9 Gastro-esophageal reflux disease without esophagitis; M10.9 Gout, unspecified; F33.9 Major depressive disorder, recurrent, unspecified; G62.9 Polyneuropathy, unspecified; G47.30 Sleep apnea, unspecified; G25.81 Restless legs syndrome; Z79.4 Long term (current) use of insulin; Z79.899 Other long term (current) drug therapy; Z86.718 Personal history of other venous thrombosis and embolism; Z98.890 Other specified postprocedural states
CPT/HCPCS: Q9967

== ENCOUNTER 2017-11-16 18:40 | Emergency (ER) | payer MEDICARE, MEDICAID ==
[2017-11-16] MEDS: CEPHALEXIN 500 MG CAP PO (20:14)
[2017-11-16] MEDS: NORCO, ANEXSIA 5/325MG TABLET (HYDROcodone/ACETAMINOPHEN) PO (20:15)
== END 2017-11-16 20:29 | disposition home or self-care (01) ==
LOC: M ED 18:40
DX: S61.011A Laceration without foreign body of right thumb without damage to nail, initial encounter (principal); W27.4XXA Contact with kitchen utensil, initial encounter; Y92.010 Kitchen of single-family (private) house as the place of occurrence of the external cause; Y93.G1 Activity, food preparation and clean up; E11.9 Type 2 diabetes mellitus without complications; I12.9 Hypertensive chronic kidney disease with stage 1 through stage 4 chronic kidney disease, or unspecified chronic kidney disease; N18.3 Chronic kidney disease, stage 3 (moderate); E78.5 Hyperlipidemia, unspecified; K21.9 Gastro-esophageal reflux disease without esophagitis; G62.9 Polyneuropathy, unspecified
CPT/HCPCS: 12001

== ENCOUNTER 2017-11-25 15:08 | Emergency (ER) | payer MEDICARE, MEDICAID ==
[2017-11-25] MEDS: NS 1,000 ML IV (16:00)
[2017-11-25] MEDS: METOCLOPRAMIDE INJ 10MG/2ML VIAL (J2765) IV (16:00)
[2017-11-25 16:04] LABS: BASO # 0.1 10^3/uL (0.0-0.2); BASO % 0.5 % (0.0-1.0); EOS # 0.4 10^3/uL (0.0-0.50); EOS % 3.4 % (0.0-3.0); HEMATOCRIT 39.4 % (36.0-47.0); HEMOGLOBIN 12.7 g/dl (12.0-16.0); IMMATURE GRANULOCYTE % 0.3 % (0-3.0); LYMPH # 2.4 10^3/uL (1.5-4.5); LYMPH % 20.7 % (24.0-44.0); MEAN CORPUSCULAR HEMOGLOBIN 29.9 pg (27.0-33.0); MEAN CORPUSCULAR HGB CONC 32.2 g/dl (32.0-36.5); MEAN CORPUSCULAR VOLUME 92.7 fl (80.0-96.0); MONO % 8.4 % (0.0-5.0); NEUTROPHILS # 7.6 10^3/uL (1.8-7.7); NEUTROPHILS % 66.7 % (36.0-66.0); PLATELET COUNT, AUTOMATED 233 10^3/uL (150-450); RED BLOOD COUNT 4.25 10^6/uL (4.00-5.40); RED CELL DISTRIBUTION WIDTH 14.1 % (11.5-14.5); WHITE BLOOD COUNT 11.4 10^3/uL (4.0-10.0)
[2017-11-25 16:24] LABS: INR 1.06; PROTHROMBIN TIME 13.9 SECONDS (12.4-14.5)
[2017-11-25 16:43] LABS: ANION GAP 7 MEQ/L (8-16); BLOOD UREA NITROGEN 35 MG/DL (7-18); CALCIUM LEVEL 9.4 MG/DL (8.8-10.2); CARBON DIOXIDE LEVEL 22 MEQ/L (21-32); CHLORIDE LEVEL 114 MEQ/L (98-107); CPK CREATINE PHOSPHOKINASE 258 U/L (26-192); CREATININE FOR GFR 1.67 MG/DL (0.55-1.30); GLOMERULAR FILTRATION RATE 33.1 (>45); GLUCOSE, FASTING 92 MG/DL (70-100); SODIUM LEVEL 143 MEQ/L (136-145); TROPONIN I < 0.02 NG/ML (< 0.10)
[2017-11-25 16:49] LABS: CK-MB VALUE MASS 7.8 NG/ML (0.0-3.6); MB/CK RELATIVE INDEX 3.02 (< OR =4)
[2017-11-25 16:52] LABS: POTASSIUM SERUM 5.4 MEQ/L (3.5-5.1)
[2017-11-25 17:12] LABS: BEDSIDE GLUCOSE 165 MG/DL (80-115)
[2017-11-25 18:33] LABS: KETONE, URINE AUTO RFX NEGATIVE (NEGATIVE); LEUKOCYTE ESTERASE UR AUTO RFX NEGATIVE (NEGATIVE); MUCUS, URINE RFX SMALL (NEGATIVE); NITRITE, URINE AUTO RFX NEGATIVE (NEGATIVE); RBC, URINE AUTO RFX 1 /HPF (0-3); SPECIFIC GRAVITY UR AUTO RFX 1.015 (1.002-1.035); SQUAM EPITHELIAL CELL UR AURFX 4 /HPF (0-6); WBC, URINE AUTO RFX 0 /HPF (0-3)
== END 2017-11-25 19:34 | disposition home or self-care (01) ==
LOC: M ED 15:08
DX: E86.0 Dehydration (principal); R06.02 Shortness of breath; I10 Essential (primary) hypertension; E11.9 Type 2 diabetes mellitus without complications; G89.4 Chronic pain syndrome; Z79.899 Other long term (current) drug therapy; Z79.4 Long term (current) use of insulin
CPT/HCPCS: J2765

== ENCOUNTER 2018-01-12 22:35 | Emergency (ER) | payer MEDICARE, MEDICAID ==
[2018-01-13] MEDS: ASPIRIN 325 MG TAB PO
[2018-01-13 00:09] LABS: INR 1.01; PARTIAL THROMBOPLASTIN TIME 30.3 SECONDS (26.8-37.9); PROTHROMBIN TIME 13.4 SECONDS (12.4-14.5)
[2018-01-13 00:17] LABS: BASO # 0.1 10^3/uL (0.0-0.2); BASO % 0.6 % (0.0-1.0); EOS # 0.4 10^3/uL (0.0-0.50); EOS % 4.1 % (0.0-3.0); HEMATOCRIT 38.2 % (36.0-47.0); HEMOGLOBIN 12.3 g/dl (12.0-15.5); IMMATURE GRANULOCYTE % 0.3 % (0-3.0); LYMPH # 2.9 10^3/uL (1.5-4.5); LYMPH % 30.3 % (24.0-44.0); MEAN CORPUSCULAR HEMOGLOBIN 29.9 pg (27.0-33.0); MEAN CORPUSCULAR HGB CONC 32.2 g/dl (32.0-36.5); MEAN CORPUSCULAR VOLUME 92.7 fl (80.0-96.0); MONO % 9.9 % (0.0-5.0); NEUTROPHILS # 5.3 10^3/uL (1.8-7.7); NEUTROPHILS % 54.8 % (36.0-66.0); PLATELET COUNT, AUTOMATED 211 10^3/uL (150-450); RED BLOOD COUNT 4.12 10^6/uL (4.00-5.40); RED CELL DISTRIBUTION WIDTH 13.3 % (11.5-14.5); WHITE BLOOD COUNT 9.7 10^3/uL (4.0-10.0)
[2018-01-13 00:59] LABS: ANION GAP 5 MEQ/L (8-16); BLOOD UREA NITROGEN 27 MG/DL (7-18); CARBON DIOXIDE LEVEL 25 MEQ/L (21-32); CHLORIDE LEVEL 114 MEQ/L (98-107); CK-MB VALUE MASS 6.4 NG/ML (<3.6); CPK CREATINE PHOSPHOKINASE 197 U/L (26-192); CREATININE FOR GFR 1.76 MG/DL (0.55-1.30); GLOMERULAR FILTRATION RATE 31.1 (>45); GLUCOSE, FASTING 229 MG/DL (70-100); MB/CK RELATIVE INDEX 3.24 (< OR =4); POTASSIUM SERUM 4.9 MEQ/L (3.5-5.1); SODIUM LEVEL 144 MEQ/L (136-145); TROPONIN I < 0.02 NG/ML (< 0.10)
[2018-01-13] MEDS: traMADol 50 MG TAB PO (01:30)
[2018-01-13 03:23] LABS: CK-MB VALUE MASS 5.2 NG/ML (<3.6); CPK CREATINE PHOSPHOKINASE 205 U/L (26-192); MB/CK RELATIVE INDEX 2.53 (< OR =4); TROPONIN I < 0.02 NG/ML (< 0.10)
== END 2018-01-13 04:58 | disposition home or self-care (01) ==
LOC: M ED 01-13 04:58
DX: R07.1 Chest pain on breathing (principal); E11.9 Type 2 diabetes mellitus without complications; I10 Essential (primary) hypertension; E78.5 Hyperlipidemia, unspecified; Z87.442 Personal history of urinary calculi; G25.81 Restless legs syndrome; Z98.61 Coronary angioplasty status; Z79.4 Long term (current) use of insulin; Z79.899 Other long term (current) drug therapy
CPT/HCPCS: 71045

== ENCOUNTER 2018-01-21 21:58 | Emergency (ER) | payer MEDICARE, MEDICAID ==
[2018-01-21] MEDS: NS 500 ML IV (22:30)
[2018-01-21 22:46] LABS: BASO % 0.4 % (0.0-1.0); EOS # 0.3 10^3/uL (0.0-0.50); EOS % 3.4 % (0.0-3.0); HEMATOCRIT 43.7 % (36.0-47.0); HEMOGLOBIN 14.2 g/dl (12.0-15.5); IMMATURE GRANULOCYTE % 0.2 % (0-3.0); LYMPH # 2.8 10^3/uL (1.5-4.5); MEAN CORPUSCULAR HEMOGLOBIN 29.6 pg (27.0-33.0); MEAN CORPUSCULAR HGB CONC 32.5 g/dl (32.0-36.5); MEAN CORPUSCULAR VOLUME 91.2 fl (80.0-96.0); MONO % 9.9 % (0.0-5.0); NEUTROPHILS # 5.5 10^3/uL (1.8-7.7); NEUTROPHILS % 57.1 % (36.0-66.0); PLATELET COUNT, AUTOMATED 235 10^3/uL (150-450); RED BLOOD COUNT 4.79 10^6/uL (4.00-5.40); RED CELL DISTRIBUTION WIDTH 13.4 % (11.5-14.5); WHITE BLOOD COUNT 9.7 10^3/uL (4.0-10.0)
[2018-01-21 22:49] LABS: APPEARANCE, URINE HAZY (CLEAR); BACTERIA, URINE AUTO 1+ (NEGATIVE); BILIRUBIN, URINE AUTO NEGATIVE (NEGATIVE); BLOOD, URINE BLOOD NEGATIVE (NEGATIVE); COLOR, URINE YELLOW (YELLOW); GLUCOSE, URINE (UA) AUTO 3+ mg/dL (NEGATIVE); KETONE, URINE AUTO NEGATIVE (NEGATIVE); LEUKOCYTE ESTERASE, URINE AUTO NEGATIVE (NEGATIVE); MUCUS, URINE SMALL (NEGATIVE); NITRITE, URINE AUTO NEGATIVE (NEGATIVE); PROTEIN, URINE AUTO 2+ mg/dL (NEGATIVE); RBC, URINE AUTO 1 /HPF (0-3); SPECIFIC GRAVITY URINE AUTO 1.017 (1.002-1.035); SQUAMOUS EPITHELIAL CELL UR AU 5 /HPF (0-6); UROBILINOGEN, URINE AUTO 0.2 mg/dL (0.0-2.0); WBC, URINE AUTO 2 /HPF (0-3)
[2018-01-21 23:09] LABS: ALBUMIN 3.4 GM/DL (3.2-5.2); ALBUMIN/GLOBULIN RATIO 0.77 (1.00-1.93); ALKALINE PHOSPHATASE 186 U/L (45-117); ALT/SGPT 43 U/L (12-78); ANION GAP 9 MEQ/L (8-16); AST/SGOT 44 U/L (7-37); BILIRUBIN,DIRECT 0.1 MG/DL (0.0-0.2); BILIRUBIN,TOTAL 0.4 MG/DL (0.2-1.0); BLOOD UREA NITROGEN 35 MG/DL (7-18); CALCIUM LEVEL 9.8 MG/DL (8.8-10.2); CARBON DIOXIDE LEVEL 23 MEQ/L (21-32); CHLORIDE LEVEL 107 MEQ/L (98-107); GLOMERULAR FILTRATION RATE 32.4 (>45); GLUCOSE, FASTING 355 MG/DL (70-100); LIPASE 143 U/L (73-393); POTASSIUM SERUM 4.7 MEQ/L (3.5-5.1); SODIUM LEVEL 139 MEQ/L (136-145); TOTAL PROTEIN 7.8 GM/DL (6.4-8.2)
[2018-01-21] MEDS: HumuLIN R (REGULAR) INSULIN (NovoLIN R) **100U/ML** PER UNIT IV (23:42)
[2018-01-22 00:26] LABS: BEDSIDE GLUCOSE 234 MG/DL (80-115)
== END 2018-01-22 01:10 | disposition home or self-care (01) ==
LOC: M ED 01-22 01:10
DX: E86.9 Volume depletion, unspecified (principal); E11.65 Type 2 diabetes mellitus with hyperglycemia; I10 Essential (primary) hypertension; E78.5 Hyperlipidemia, unspecified; G62.9 Polyneuropathy, unspecified; Z87.442 Personal history of urinary calculi; Z79.899 Other long term (current) drug therapy; Z79.4 Long term (current) use of insulin
CPT/HCPCS: 83690

== ENCOUNTER 2018-05-01 19:31 | Emergency (ER) | payer MEDICARE, SELFPAY ==
[2018-05-01] MEDS: NS 500 ML IV (20:15)
[2018-05-01] MEDS: METOCLOPRAMIDE INJ 10MG/2ML VIAL (J2765) IV (20:15)
[2018-05-01] MEDS: KETOROLAC 30 MG/ML VIAL (J1885) IV (21:10)
[2018-05-01] MEDS: diphenhydrAMINE INJ 50MG/ML VIAL (J1200) IV (21:10)
== END 2018-05-01 21:56 | disposition home or self-care (01) ==
LOC: M ED 19:31
DX: G44.209 Tension-type headache, unspecified, not intractable (principal); E11.9 Type 2 diabetes mellitus without complications; I10 Essential (primary) hypertension; Z79.899 Other long term (current) drug therapy; Z79.4 Long term (current) use of insulin
CPT/HCPCS: J1200

== ENCOUNTER → 2018-05-19 | Outpatient (CLI) | payer MEDICARE, MEDICAID | LOC: M PT 13:25 | DX: G62.9 Polyneuropathy, unspecified (principal); G89.29 Other chronic pain; M17.0 Bilateral primary osteoarthritis of knee | CPT/HCPCS: 97162 ==

== ENCOUNTER → 2018-06-02 | Outpatient (CLI) | payer MEDICARE, MEDICAID | LOC: M RAD 12:51 | DX: J98.4 Other disorders of lung (principal); M41.24 Other idiopathic scoliosis, thoracic region; R04.2 Hemoptysis | CPT/HCPCS: 71046 ==

== ENCOUNTER 2018-07-02 20:31 | Emergency (ER) | payer MEDICARE, MEDICAID | END 2018-07-02 22:33 | disposition home or self-care (01) | LOC: M ED 20:31 | DX: M17.0 Bilateral primary osteoarthritis of knee (principal) | CPT/HCPCS: 73560 ==

== ENCOUNTER → 2018-10-07 | Outpatient (CLI) | payer MEDICARE, MEDICAID ==
[~2018-10-07] MED LIST changes: -ACET1TAB17 PO; +ACET1TAB55 PO; +ALLO100T PO; +AMIL25TA PO; +AMIL5TAB4 PO; -AMLO5TAB2 PO; +AMLO5TAB6 PO; +BASA100I SC; -DRIS50002 PO; +DRIS50003 PO; +FAMO1TAB11 PO; +FAMO1TAB25 PO; +GABA-1171 PO; -GABA-279 PO; -GABA-283 PO; +GABA-843 PO; +GABA-845 PO; +GABA600T4 PO; +KEFL500C17 PO; +LOSA25TA14; +LOSA25TA14 PO; -LOSA25TA8 PO; +MAGN400C3 PO; +NORCOTAB PO; +SIMV80TA13 PO; +VICT18IN SC; +VITA200028 PO; +VITMTA PO; +ZOFR4TAB14 PO; -ZYLO300T4 PO; +ZYLO300T6 PO
--- NOTE | 2018-10-12 11:03 | SLEEPCENT ---
DATE OF PROCEDURE: 10/07/2018 ORDERED BY: ARTUR Morel Nocturnal polysomnography was performed for evaluation of sleep physiology in this patient with a history of excessive somnolence and nonrestorative sleep who has comorbidities of hypertension, diabetes and acid reflux disease. 7 hours and 57 minutes of data were reviewed. There were 393 minutes of sleep identified. Sleep latency was short at 6 minutes. Rapid eye movement (REM) latency was short at 56 minutes. Sleep architecture was fairly good. There were 4 REM cycles appreciated and fragmentation was seen early in the study. Overall sleep efficiency was 85.2%. The electrocardiogram showed a sinus rhythm with an average heart rate of 90 beats per minute. Electroencephalogram (EEG) showed normal waveforms for awake and sleep stages. There were 172 respiratory events identified of 10 seconds in duration or greater for an apnea-hypopnea index of 26.2. The events were primarily obstructive, not exclusive to sleep stage and more frequent in the supine posture. Arousals from respiratory events occurred 4.9 times per hour and oxygen desaturations were seen into the 70s. There was minimal activity in the limb leads. Arousals occurred only 3.4 times per hour and snoring was noted over the course of the test. IMPRESSION: Obstructive sleep apnea syndrome (G47.33). Apnea-hypopnea index 26.2. RECOMMENDATION: The patient should be encouraged to return to the sleep disorder center for pressure therapy. In the interim, alcohol and sedative avoidance should be practiced and caution exercised during operation of motor vehicles.
== END ==
LOC: M SLEEP 19:02
PROVIDERS: ATTEND Nurse Practitioner Family
DX: G47.33 Obstructive sleep apnea (adult) (pediatric) (principal)

== ENCOUNTER → 2018-11-04 | Outpatient (CLI) | payer MEDICARE, MEDICAID ==
--- NOTE | 2018-11-11 12:36 | SLEEPCENT ---
DATE OF PROCEDURE: 11/04/2018 ORDERED BY: ARTUR Morel Nocturnal polysomnography was performed for the titration of pressure therapy in this patient with the obstructive sleep apnea syndrome. For testing a [employer] Simplus full face mask of small size was used; 4 cm of water pressure were applied to the circuit and the lights were extinguished. 7 hours and 51 minutes of data were reviewed. There were 364 minutes of sleep identified. Sleep latency was normal at 10.5 minutes. Rapid eye movement (REM) latency was mildly prolonged at 100 minutes. Sleep architecture improved with optimal pressure therapy. Overall sleep efficiency was 78.7%. The patient's electrocardiogram showed sinus rhythm with an average heart rate of 78 beats per minute. EEG showed reasonably normal waveforms for awake and sleep. Persistence of respiratory events prompted an increase in pressure therapy. Despite optimal mask fit and minimal air leak, the patient was changed to a bilevel device. Optimal sleep was seen on a bilevel pressure inspiratory 23 over expiratory 19. There was some limb activity noted particularly early in the study. Limb movement arousal index of 7.3. IMPRESSION: Obstructive sleep apnea syndrome (G47.33). RECOMMENDATIONS: Nightly use of pressure therapy with a bilevel device inspiratory 23 over expiratory of 19.
== END ==
LOC: M SLEEP 19:06
PROVIDERS: ATTEND Nurse Practitioner Family
DX: G47.33 Obstructive sleep apnea (adult) (pediatric) (principal)

== ENCOUNTER 2018-12-07 22:52 | Emergency (ER) | payer MEDICARE, MEDICAID ==
[2018-12-07] MEDS ORDERED: MECL-68 PO (23:57)
[2018-12-08] MEDS ORDERED: MECLIZINE 25 MG TABLET PO ONE
[2018-12-08 00:14] VITALS: BP 151/86
== END 2018-12-08 00:17 | disposition home or self-care (01) ==
LOC: EDBD 22:52 → M ED 22:52
DX: H83.09 Labyrinthitis, unspecified ear (principal); E11.9 Type 2 diabetes mellitus without complications; I10 Essential (primary) hypertension; E78.5 Hyperlipidemia, unspecified; K21.9 Gastro-esophageal reflux disease without esophagitis; R41.89 Other symptoms and signs involving cognitive functions and awareness; Z79.899 Other long term (current) drug therapy; Z79.4 Long term (current) use of insulin

== ENCOUNTER 2019-01-07 16:30 | Emergency (ER) | payer MEDICARE, MEDICAID ==
[~2019-01-07] VITALS: Ht 165.1 cm; Wt 147.7 kg
[~2019-01-07 16:30] MED LIST changes: -/GLIM4TA; -/GLIM4TA PO; -/ONDA4TA; -/PRAV20TA OR; +AMAR1TAB6; +AMAR1TAB6 PO; +HYDR-3715 PO; +MECL-68 PO; -NORCOTAB PO; +ONDA-1; +PRAV1TAB39 OR; +VITA100018 PO; -VITA100072 PO
--- NOTE | 2019-01-07 17:21 | REP ---
Left lower extremity Duplex Doppler venous ultrasound: Real time compression and duplex Doppler interrogation of the left lower extremity deep venous system is performed. The left common femoral, superficial femoral and popliteal veins are fully compressible with transducer pressure and demonstrate normal spontaneous and phasic flow, without evidence of deep venous thrombosis. Impression: No evidence of deep venous thrombosis of the left lower extremity femoral popliteal venous system. Electronically Signed by Calin Doan MD 01/07/2019 05:12 P
[2019-01-07] MEDS ORDERED: BENA25CA4 PO (17:39)
[2019-01-07] MEDS ORDERED: VOLT1GEL15 TOP (17:39)
[2019-01-07] MEDS ORDERED: GLIM4TAB PO (17:39)
[2019-01-07] MEDS ORDERED: ASTE0.15 NARES (17:39)
[2019-01-07] MEDS ORDERED: MULTCAP PO (17:39)
[2019-01-07] MEDS ORDERED: GABA600T4 PO (17:39)
[2019-01-07] MEDS ORDERED: BASA100I SC (17:39)
[2019-01-07 19:16] VITALS: BP 132/86
--- NOTE | 2019-01-07 19:34 | REP ---
Left tib-fib series: Four views. History: Left lower leg pain. Findings: There is advanced medial and moderate lateral compartment osteoarthritis. There is significant medial compartment joint space narrowing. Diffuse osteopenia is noted. Patellofemoral narrowing and spurring is noted. There is heel spurring. Impression: Diffuse osteopenia. Moderate to advanced left knee joint osteoarthritis. Heel spur. Electronically Signed by Jhony oPnd MD 01/07/2019 08:17 P
== END 2019-01-07 19:22 | disposition home or self-care (01) ==
LOC: M ED 16:30
DX: M79.662 Pain in left lower leg (principal); E10.9 Type 1 diabetes mellitus without complications; N18.3 Chronic kidney disease, stage 3 (moderate); G62.9 Polyneuropathy, unspecified; K21.9 Gastro-esophageal reflux disease without esophagitis; G25.81 Restless legs syndrome; Q60.0 Renal agenesis, unilateral; E66.8 Other obesity; Z86.711 Personal history of pulmonary embolism; Z86.718 Personal history of other venous thrombosis and embolism; Z79.899 Other long term (current) drug therapy; Z79.4 Long term (current) use of insulin

== ENCOUNTER → 2019-02-14 | Outpatient (CLI) | payer MEDICARE, MEDICAID ==
[~2019-02-14] MED LIST changes: +ASTE0.15 NARES; +BENA25CA4 PO; +MULTCAP PO; +VOLT1GEL15 TOP
--- NOTE | 2019-02-14 14:32 | REPMRS ---
Patient History The patient states she has not had a clinical breast exam in over a year. Patient is postmenopausal. No known family history of cancer. Benign radio exam breast specimen of the right breast, December 17, 2016. Benign stereotatic loc for ea lesion of the right breast, December 17, 2016. No Hormone Replacement Therapy 3D TOMOSYNTHESIS WAS PERFORMED. Digital Woman Screen Mammo: February 14, 2019 - Exam #: [id number] Bilateral CC and MLO view(s) were taken. Technologist: Leyda Avelar, Technologist Prior study comparison: August 25, 2017, digital woman screen mammo performed at [facility]. July 29, 2016, right breast digital mammo diagnostic unilateral, performed at [facility]. FINDINGS: There are scattered fibroglandular densities. There has been no change in the appearance of the mammogram from the prior studies. There is a mild amount of residual fibroglandular tissue which is fairly symmetric. There is no interval development of dominant mass, architectural distortion, or clustered microcalcification suggestive of malignancy. Assessment: BI-RADS/ACR category 1 mammogram. Negative Mammogram. Recommendation Routine screening mammogram in 1 year (for women over age 40). This mammogram was interpreted with the aid of an FDA-approved computer-aided dectection system. Electronically Signed By: Calin Doan MD 02/14/19 [id number]
== END ==
LOC: M WHC 13:05
PROVIDERS: ATTEND Family Medicine
DX: Z12.31 Encounter for screening mammogram for malignant neoplasm of breast (principal); Z78.0 Asymptomatic menopausal state; Z86.018 Personal history of other benign neoplasm

== ENCOUNTER → 2019-03-03 | Outpatient (REF) | payer MEDICARE, MEDICAID ==
[2019-03-05 09:35] LABS: CREATININE, URINE 222.3 mg/dL (20.0-300.0)
== END ==
LOC: M SFHCPLAZ 14:48
PROVIDERS: ATTEND Family Medicine
DX: Z51.81 Encounter for therapeutic drug level monitoring (principal)
CPT/HCPCS: 36415; 80307; G0463

== ENCOUNTER → 2019-03-24 | Outpatient (REF) | payer MEDICARE, MEDICAID ==
[2019-03-24 12:54] LABS: BASO % 0.5 % (0.0-1.0); EOS # 0.4 10^3/uL (0.0-0.50); EOS % 4.7 % (0.0-3.0); HEMATOCRIT 40.8 % (36.0-47.0); HEMOGLOBIN 12.9 g/dl (12.0-15.5); LYMPH # 2.4 10^3/uL (1.5-4.5); LYMPH % 32.4 % (24.0-44.0); MEAN CORPUSCULAR HEMOGLOBIN 29.3 pg (27.0-33.0); MEAN CORPUSCULAR HGB CONC 31.6 g/dl (32.0-36.5); MEAN CORPUSCULAR VOLUME 92.5 fl (80.0-96.0); MONO # 0.6 10^3/uL (0.0-0.8); MONO % 7.5 % (0.0-5.0); NEUTROPHILS # 4.1 10^3/uL (1.8-7.7); NEUTROPHILS % 54.8 % (36.0-66.0); PLATELET COUNT, AUTOMATED 201 10^3/uL (150-450); RED BLOOD COUNT 4.41 10^6/uL (4.00-5.40); WHITE BLOOD COUNT 7.5 10^3/uL (4.0-10.0)
[2019-03-24 13:04] LABS: ALBUMIN 3.2 GM/DL (3.2-5.2); BILIRUBIN,TOTAL 0.4 MG/DL (0.2-1.0); CALCIUM LEVEL 9.8 MG/DL (8.8-10.2); CREATININE FOR GFR 1.68 MG/DL (0.55-1.30); GLOMERULAR FILTRATION RATE 32.7 (>45); POTASSIUM SERUM 4.8 MEQ/L (3.5-5.1); TOTAL PROTEIN 7.1 GM/DL (6.4-8.2)
== END ==
LOC: M SFHCPLAZ 08:34
PROVIDERS: ATTEND Family Medicine
DX: R19.7 Diarrhea, unspecified (principal); R35.0 Frequency of micturition
CPT/HCPCS: 36415; 80053; 85025; G0463

== ENCOUNTER 2019-08-02 02:13 | Emergency (ER) | payer MEDICARE, MEDICAID ==
[~2019-08-02] VITALS: Ht 167.6 cm; Wt 147.7 kg
[~2019-08-02 02:13] MED LIST changes: -GLIM4TAB PO; +GLIM4TAB3 PO; -OMEP40CA2 PO; +OMEP40CA97 PO
[2019-08-02 02:39] LABS: BASO # 0.1 10^3/uL (0.0-0.2); BASO % 0.7 % (0.0-1.0); EOS # 0.4 10^3/uL (0.0-0.5); EOS % 4.2 % (0.0-3.0); HEMATOCRIT 42.3 % (36.0-47.0); HEMOGLOBIN 13.4 g/dl (12.0-15.5); LYMPH # 3.4 10^3/uL (1.5-5.0); LYMPH % 35.7 % (24.0-44.0); MEAN CORPUSCULAR HEMOGLOBIN 30.3 pg (27.0-33.0); MEAN CORPUSCULAR HGB CONC 31.7 g/dl (32.0-36.5); MEAN CORPUSCULAR VOLUME 95.7 fl (80.0-96.0); MONO # 0.9 10^3/uL (0.0-0.8); MONO % 9.1 % (0.0-5.0); NEUTROPHILS # 4.8 10^3/uL (1.5-8.5); NEUTROPHILS % 50.1 % (36.0-66.0); PLATELET COUNT, AUTOMATED 211 10^3/uL (150-450); RED BLOOD COUNT 4.42 10^6/uL (4.00-5.40); WHITE BLOOD COUNT 9.5 10^3/uL (4.0-10.0)
[2019-08-02 03:03] LABS: BLOOD UREA NITROGEN 30 MG/DL (7-18); CALCIUM LEVEL 9.7 MG/DL (8.8-10.2); CARBON DIOXIDE LEVEL 26 MEQ/L (21-32); CHLORIDE LEVEL 111 MEQ/L (98-107); CK-MB VALUE MASS 3.4 NG/ML (<3.6); CPK CREATINE PHOSPHOKINASE 174 U/L (26-192); GLOMERULAR FILTRATION RATE 34.5 (>45); GLUCOSE, FASTING 188 MG/DL (70-100); MB/CK RELATIVE INDEX 1.95 (< OR =4); POTASSIUM SERUM 4.7 MEQ/L (3.5-5.1); SODIUM LEVEL 146 MEQ/L (136-145); TROPONIN I < 0.02 NG/ML (< 0.10)
[2019-08-02 03:30] VITALS: BP 136/76
[2019-08-02] MEDS ORDERED: MAGNESIUM CITRATE 300 ML BTL PO ONE (03:30)
--- NOTE | 2019-08-02 06:29 | ECGEPIP ---
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
--- NOTE | 2019-08-02 07:09 | REP ---
Acute abdominal series five views including PA chest, upright abdomen single view and supine abdomen three views: PA chest: Comparison is 06/02/2018. Lung mendoza are clear. Cardiac size is upper normal. The aj and mediastinum are unremarkable. There is thoracic scoliosis convex right, unchanged. There is a linear parenchymal scar in the left lung. There is no free subdiaphragmatic air. Impression: There are no acute cardiopulmonary findings. Abdomen, supine upright views: The bowel gas pattern is normal. There are right upper quadrant surgical clips. There are pelvic calcifications, likely phleboliths. There is degenerative disc disease in the lumbar spine. Impression: Normal bowel gas pattern. Electronically Signed by Calin Walker MD 08/02/2019 07:01 A
== END 2019-08-02 03:44 | disposition home or self-care (01) ==
LOC: M ED 02:13
DX: K59.00 Constipation, unspecified (principal); E11.9 Type 2 diabetes mellitus without complications; I10 Essential (primary) hypertension; K21.9 Gastro-esophageal reflux disease without esophagitis; G25.81 Restless legs syndrome; F41.9 Anxiety disorder, unspecified; F32.9 Major depressive disorder, single episode, unspecified; Z79.4 Long term (current) use of insulin; Z79.899 Other long term (current) drug therapy

== ENCOUNTER → 2019-08-09 | Outpatient (REF) | payer MEDICARE, MEDICAID ==
[2019-08-11 08:12] LABS: CREATININE, URINE 107.7 mg/dL (20.0-300.0)
== END ==
LOC: M SFHCPLAZ 17:01
PROVIDERS: ATTEND Family Medicine
DX: Z51.81 Encounter for therapeutic drug level monitoring (principal)
CPT/HCPCS: 80307; G0463

== ENCOUNTER 2019-12-07 19:26 | Emergency (ER) | payer MEDICARE, MEDICAID ==
[~2019-12-07] VITALS: Ht 165.1 cm; Wt 147.7 kg
[~2019-12-07 19:26] MED LIST changes: -FLUO20CA19 PO; +FLUO20CA20 PO; +FLUO20CA22 PO; -FLUO20CA8 PO; -GLIM4TAB3 PO; +GLIM4TAB5 PO; -MECL-68 PO; +MECL1TAB31 PO; -ROPI1TAB PO; +ROPI1TAB3 PO
[2019-12-07 19:47] VITALS: BP 157/76
--- NOTE | 2019-12-07 20:01 | REP ---
Portable chest, 07:40 p.m., single AP view with the the patient upright: Comparison is 06/02/2018. The patient is rotated. Lung mendoza are clear. Cardiac size is normal. The aj and mediastinum are unremarkable. There is a stable tiny parenchymal scar inferiorly in the left lung, unchanged. There is osteoarthritis of the left shoulder, unchanged . There is thoracic scoliosis convex right, unchanged. Impression: There are no acute cardiopulmonary findings. Electronically Signed by Calin Walker MD 12/07/2019 07:53 P
[2019-12-07 20:26] LABS: BASO # 0.1 10^3/uL (0.0-0.2); BASO % 0.6 % (0.0-1.0); EOS # 0.4 10^3/uL (0.0-0.5); EOS % 4.3 % (0.0-3.0); HEMATOCRIT 42.6 % (36.0-47.0); HEMOGLOBIN 13.7 g/dl (12.0-15.5); LYMPH # 2.6 10^3/uL (1.5-5.0); MEAN CORPUSCULAR HEMOGLOBIN 29.7 pg (27.0-33.0); MEAN CORPUSCULAR HGB CONC 32.2 g/dl (32.0-36.5); MEAN CORPUSCULAR VOLUME 92.2 fl (80.0-96.0); MONO # 0.9 10^3/uL (0.0-0.8); MONO % 10.6 % (0.0-5.0); NEUTROPHILS # 4.5 10^3/uL (1.5-8.5); NEUTROPHILS % 53.3 % (36.0-66.0); PLATELET COUNT, AUTOMATED 215 10^3/uL (150-450); RED BLOOD COUNT 4.62 10^6/uL (4.00-5.40); WHITE BLOOD COUNT 8.5 10^3/uL (4.0-10.0)
[2019-12-07 20:45] LABS: ALBUMIN 3.2 GM/DL (3.2-5.2); ALT/SGPT 18 U/L (12-78); BILIRUBIN,DIRECT 0.1 MG/DL (0.0-0.2); BILIRUBIN,TOTAL 0.3 MG/DL (0.2-1.0); CK-MB VALUE MASS 6.6 NG/ML (<3.6); CPK CREATINE PHOSPHOKINASE 213 U/L (26-192); LIPASE 130 U/L (73-393); TOTAL PROTEIN 6.7 GM/DL (6.4-8.2); TROPONIN I < 0.02 NG/ML (< 0.10)
[2019-12-07] MEDS ORDERED: NS 500 ML IV ONE (20:45)
[2019-12-07] MEDS ORDERED: MECLIZINE 25 MG TABLET PO ONE (20:45)
--- NOTE | 2019-12-07 21:03 | ECGEPIP ---
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
[2019-12-07] MEDS ORDERED: MECL1TAB31 PO (22:05)
== END 2019-12-07 23:15 | disposition home or self-care (01) ==
LOC: M ED 19:26
DX: R19.7 Diarrhea, unspecified (principal); H81.10 Benign paroxysmal vertigo, unspecified ear; E11.9 Type 2 diabetes mellitus without complications; E66.9 Obesity, unspecified; F32.9 Major depressive disorder, single episode, unspecified; G47.33 Obstructive sleep apnea (adult) (pediatric); I10 Essential (primary) hypertension; K21.9 Gastro-esophageal reflux disease without esophagitis; K63.5 Polyp of colon; N18.9 Chronic kidney disease, unspecified; Z79.4 Long term (current) use of insulin; Z79.899 Other long term (current) drug therapy; Z86.718 Personal history of other venous thrombosis and embolism

== ENCOUNTER → 2019-12-12 | Outpatient (REF) | payer MEDICARE, MEDICAID ==
[2019-12-12 16:41] LABS: MAU/CREAT RATIO 128.5 MCG/MG (0.0-30.0)
== END ==
LOC: M LAB REF 15:35
PROVIDERS: ATTEND Nurse Practitioner Family
DX: E11.22 Type 2 diabetes mellitus with diabetic chronic kidney disease (principal)

== ENCOUNTER → 2019-12-30 | Outpatient (REF) | payer MEDICARE, MEDICAID | LOC: M LAB REF 10:24 | PROVIDERS: ATTEND Nurse Practitioner Family | DX: R19.7 Diarrhea, unspecified (principal) ==

== ENCOUNTER → 2020-01-17 | Outpatient (REF) | payer MEDICARE, MEDICAID | LOC: M SFHCPLAZ 11:44 | PROVIDERS: ATTEND Family Medicine | DX: D22.5 Melanocytic nevi of trunk (principal) | CPT/HCPCS: 11102; 88305; G0463 ==

== ENCOUNTER → 2020-02-21 | Outpatient (CLI) | payer MEDICARE, MEDICAID ==
--- NOTE | 2020-02-21 13:59 | REPMRS ---
Patient History The patient states she has not had a clinical breast exam in over a year. No known family history of cancer. Benign radio exam breast specimen of the right breast, December 17, 2016. Benign stereotatic loc for ea lesion of the right breast, December 17, 2016. No Hormone Replacement Therapy Digital Woman Screen Mammo: February 21, 2020 - Exam #: [id number] Bilateral CC and MLO view(s) were taken. Technologist: Modesta Rivas Technologist Prior study comparison: February 14, 2019, bilateral digital woman screen mammo performed at [facility]. August 25, 2017, digital woman screen mammo performed at [facility]. July 29, 2016, right breast digital mammo diagnostic unilateral, performed at [facility]. FINDINGS: The breast tissue is almost entirely fat. The Volpara volumetric breast density category is: A. There has been no change in the appearance of the mammogram from the prior studies. There is no interval development of dominant mass, architectural distortion, or grouped microcalcification typical of malignancy. 3-D tomosynthesis shows no additional findings. Assessment: BI-RADS/ACR category 1 mammogram. Negative Mammogram. Recommendation Routine screening mammogram of both breasts in 1 year (for women over age 40). This patient's Lifetime Breast Cancer RIsk is estimated at 7.6 %. This mammogram was interpreted with the aid of an FDA-approved computer-aided dectection system. Electronically Signed By: Dmitriy Pond MD 02/21/20 [id number]
== END ==
LOC: M WHC 12:50
PROVIDERS: ATTEND Family Medicine
DX: Z12.31 Encounter for screening mammogram for malignant neoplasm of breast (principal)

== ENCOUNTER 2020-04-09 13:39 | Emergency (ER) | payer MEDICARE, MEDICAID ==
[~2020-04-09] VITALS: Ht 167.6 cm; Wt 150.4 kg
[~2020-04-09 13:39] MED LIST changes: +AMLO1TAB24 PO; -AMLO5TAB6 PO
[2020-04-09] MEDS ORDERED: NS 1,000 ML IV ONE (15:30)
--- NOTE | 2020-04-09 16:14 | REP ---
Bilateral lower extremity Duplex Doppler venous ultrasound: Real time compression and duplex Doppler interrogation of the bilateral lower extremity deep venous system is performed. Bilaterally, the common femoral, superficial femoral and popliteal veins are fully compressible with transducer pressure and demonstrate normal spontaneous and phasic flow, without evidence of deep venous thrombosis. Impression: No evidence of deep venous thrombosis of the bilateral lower extremity femoral popliteal venous system. Electronically Signed by Calin Doan MD 04/09/2020 04:07 P
[2020-04-09 16:16] LABS: BASO # 0.1 10^3/uL (0.0-0.2); BASO % 0.5 % (0.0-1.0); EOS # 0.2 10^3/uL (0.0-0.5); EOS % 2.4 % (0.0-3.0); HEMATOCRIT 44.2 % (36.0-47.0); HEMOGLOBIN 13.9 g/dl (12.0-15.5); LYMPH # 2.2 10^3/uL (1.5-5.0); LYMPH % 23.4 % (24.0-44.0); MEAN CORPUSCULAR HEMOGLOBIN 28.9 pg (27.0-33.0); MEAN CORPUSCULAR HGB CONC 31.4 g/dl (32.0-36.5); MEAN CORPUSCULAR VOLUME 91.9 fl (80.0-96.0); MONO # 0.8 10^3/uL (0.0-0.8); MONO % 8.6 % (0.0-5.0); NEUTROPHILS # 6.1 10^3/uL (1.5-8.5); NEUTROPHILS % 64.8 % (36.0-66.0); PLATELET COUNT, AUTOMATED 192 10^3/uL (150-450); RED BLOOD COUNT 4.81 10^6/uL (4.00-5.40); WHITE BLOOD COUNT 9.4 10^3/uL (4.0-10.0)
--- NOTE | 2020-04-09 16:37 | ECGEPIP ---
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
[2020-04-09 16:38] LABS: ERYTHROCYTE SEDIMENTATION RATE 21 mm/hr (0-30)
[2020-04-09 16:47] LABS: ALBUMIN 3.4 GM/DL (3.2-5.2); BILIRUBIN,DIRECT 0.1 MG/DL (0.0-0.2); BILIRUBIN,TOTAL 0.4 MG/DL (0.2-1.0); C REACTIVE PROTEIN QUANTITATIV 0.52 MG/DL (0.00-0.30); CREATININE FOR GFR 1.59 MG/DL (0.55-1.30); GLOMERULAR FILTRATION RATE 34.7 (>45); POTASSIUM SERUM 4.5 MEQ/L (3.5-5.1); TOTAL PROTEIN 7.6 GM/DL (6.4-8.2)
[2020-04-09] MEDS ORDERED: ISOVUE-370 76% 100ML VIAL As Ordered ONE (16:52)
[2020-04-09] MEDS ORDERED: ONDANSETRON 4MG/2ML VIAL IV ONE (17:00)
--- NOTE | 2020-04-09 17:59 | REPVR ---
PROCEDURE INFORMATION: Exam: CT Angiography Chest With Contrast Exam date and time: 04/09/2020 4:59 PM Age: 65 years old Clinical indication: Other: HX of pe; Additional info: Cp/sob/dizzy HX of pe TECHNIQUE: Imaging protocol: Computed tomographic angiography of the chest with intravenous contrast. 3D rendering: MIP and/or 3D reconstructed images were created by the technologist. Radiation optimization: All CT scans at this facility use at least one of these dose optimization techniques: automated exposure control; mA and/or kV adjustment per patient size (includes targeted exams where dose is matched to clinical indication); or iterative reconstruction. Contrast material: ISOVUE 370; Contrast volume: 75 ml; Contrast route: INTRAVENOUS (IV); COMPARISON: CT ANGIO CHEST 10/09/2017 2:23 AM FINDINGS: Pulmonary arteries: There are no pulmonary emboli. Aorta: There is no aortic dissection or aneurysm. Lungs: Atelectasis left lower lobe. Pleural space: Unremarkable. No pneumothorax. No pleural effusion. Heart: Mild cardiomegaly. Mediastinal space: Small sliding hiatal hernia. Lymph nodes: Unremarkable. No enlarged lymph nodes. Gallbladder and bile ducts: Status post cholecystectomy. Spleen: Mild splenomegaly. Adrenals: There is bilateral adrenal hyperplasia. Bones/joints: The spine demonstrates moderate degenerative changes. Dextroscoliosis thoracic spine. Soft tissues: Unremarkable. IMPRESSION: 1. There is no aortic dissection or aneurysm. 2. There are no pulmonary emboli. 3. Mild cardiomegaly. 4. Small sliding hiatal hernia. 5. No acute pulmonary parenchymal infiltrates. Electronically signed by: Erasmo Preciado On 04/09/2020 17:59:07 PM
[2020-04-09] MEDS ORDERED: METOCLOPRAMIDE INJ 10MG/2ML VIAL (J2765 PER 1) IV ONE (18:00)
[2020-04-09] MEDS ORDERED: MECL1TAB31 PO (19:01)
[2020-04-09 19:22] VITALS: BP 144/91
[2020-04-18] MEDS ORDERED: VITA50005 PO (14:52)
[2020-04-18] MEDS ORDERED: CARV25TA PO (14:52)
[2020-04-18] MEDS ORDERED: AZEL0.055 NARES (14:52)
[2020-04-18] MEDS ORDERED: MECL1TAB31 PO (14:52)
[2020-04-18] MEDS ORDERED: LOPE-39 PO (14:52)
[2020-04-18] MEDS ORDERED: CETI10TA PO (14:55)
[2020-04-18] MEDS ORDERED: CINA30TA4 PO (14:55)
[2020-04-18] MEDS ORDERED: XALA0.007 OU (14:55)
[2020-04-18] MEDS ORDERED: OMEP1CAP73 PO (14:55)
[2020-07-24] MEDS ORDERED: MAGO400T2 PO (09:09)
[2020-07-24] MEDS ORDERED: TIZA4CAP PO (09:09)
[2020-07-24] MEDS ORDERED: TRAM50TA2 PO (09:09)
== END 2020-04-09 19:27 | disposition home or self-care (01) ==
LOC: M ED 13:39
DX: R42 Dizziness and giddiness (principal); R06.02 Shortness of breath; E11.9 Type 2 diabetes mellitus without complications; I12.9 Hypertensive chronic kidney disease with stage 1 through stage 4 chronic kidney disease, or unspecified chronic kidney disease; N18.3 Chronic kidney disease, stage 3 (moderate); E78.5 Hyperlipidemia, unspecified; F33.9 Major depressive disorder, recurrent, unspecified; F41.9 Anxiety disorder, unspecified; G62.9 Polyneuropathy, unspecified; K21.9 Gastro-esophageal reflux disease without esophagitis; G25.81 Restless legs syndrome; F79 Unspecified intellectual disabilities; Z79.899 Other long term (current) drug therapy; Z79.01 Long term (current) use of anticoagulants
CPT/HCPCS: 71275; 80053; 81001; 82248; 85025; 85652; 86140; 93005; 93970; 96361; 96374; 96375; 99284; J2405; J2765; Q9967

== ENCOUNTER → 2020-04-24 | Outpatient (REF) | payer MEDICARE, MEDICAID ==
[~2020-04-24] MED LIST changes: +AZEL0.055 NARES; +CARV25TA PO; +CINA30TA4 PO; +LOPE-39 PO; +MAGO400T2 PO; +MIRA3350 PO; +OMEP1CAP73 PO; +TIZA4CAP PO; +TRES1INJ SC; +VITA50005 PO; +XALA0.007 OU
[2020-05-28 12:52] LABS: FREE T4 1.19 NG/DL (0.76-1.46); THYROID STIMULATING HORMONE 4.73 uIU/ML (0.358-3.740)
[2020-06-01 06:07] LABS: FATS NEUTRAL SEE SEPARATE REPORT
[2020-06-01 06:08] LABS: CALPROTECTIN STOOL SEE SEPARATE REPORT
== END ==
LOC: M LABSMT 12:24
PROVIDERS: ATTEND Physician Assistant Medical
DX: R19.4 Change in bowel habit (principal)

== ENCOUNTER → 2020-05-05 | Emergency (ER) | payer MEDICARE, OTHER ==
[~2020-05-05] MED LIST changes: +CARVedilol 12.5 MG TAB As Ordered ONE; +ISOVUE-370 76% 100ML VIAL As Ordered ONE
[2020-06-21 11:31] LABS: INR 1.03; PARTIAL THROMBOPLASTIN TIME 28.4 SECONDS (24.2-38.5); PROTHROMBIN TIME 13.8 SECONDS (12.5-14.3)
[2020-06-21 17:18] LABS: BASO # 0.1 10^3/uL (0.0-0.2); BASO % 0.5 % (0.0-1.0); EOS # 0.4 10^3/uL (0.0-0.5); EOS % 3.8 % (0.0-3.0); HEMATOCRIT 41.6 % (36.0-47.0); HEMOGLOBIN 13.1 g/dl (12.0-15.5); LYMPH # 2.4 10^3/uL (1.5-5.0); LYMPH % 25.8 % (24.0-44.0); MEAN CORPUSCULAR HEMOGLOBIN 29.2 pg (27.0-33.0); MEAN CORPUSCULAR HGB CONC 31.5 g/dl (32.0-36.5); MEAN CORPUSCULAR VOLUME 92.7 fl (80.0-96.0); MONO # 0.7 10^3/uL (0.0-0.8); MONO % 7.8 % (0.0-5.0); NEUTROPHILS # 5.8 10^3/uL (1.5-8.5); NEUTROPHILS % 61.9 % (36.0-66.0); PLATELET COUNT, AUTOMATED 192 10^3/uL (150-450); RED BLOOD COUNT 4.49 10^6/uL (4.00-5.40); WHITE BLOOD COUNT 9.4 10^3/uL (4.0-10.0)
[2020-07-24 18:47] LABS: ALT/SGPT 34 U/L (12-78); BLOOD UREA NITROGEN 25 MG/DL (7-18); CALCIUM LEVEL 9.2 MG/DL (8.8-10.2); CARBON DIOXIDE LEVEL 25 MEQ/L (21-32); CHLORIDE LEVEL 112 MEQ/L (98-107); CREATININE FOR GFR 1.44 MG/DL (0.55-1.30); GLOMERULAR FILTRATION RATE 38.9 (>45); GLUCOSE, FASTING 297 MG/DL (70-100); POTASSIUM SERUM 4.8 MEQ/L (3.5-5.1); SODIUM LEVEL 143 MEQ/L (136-145)
[2020-07-24 18:48] LABS: ALBUMIN 3.4 GM/DL (3.2-5.2); BILIRUBIN,DIRECT 0.1 MG/DL (0.0-0.2); BILIRUBIN,TOTAL 0.3 MG/DL (0.2-1.0); LIPASE 261 U/L (73-393); TOTAL PROTEIN 7.2 GM/DL (6.4-8.2); TROPONIN I < 0.02 NG/ML (< 0.10)
== END | disposition home or self-care (01) ==
LOC: M ED 20:10
DX: S32.049A Unspecified fracture of fourth lumbar vertebra, initial encounter for closed fracture (principal); V00.831A Fall from motorized mobility scooter, initial encounter; K44.9 Diaphragmatic hernia without obstruction or gangrene; M50.30 Other cervical disc degeneration, unspecified cervical region; E11.9 Type 2 diabetes mellitus without complications; G47.33 Obstructive sleep apnea (adult) (pediatric); M19.90 Unspecified osteoarthritis, unspecified site; M10.9 Gout, unspecified; Z79.899 Other long term (current) drug therapy
CPT/HCPCS: 36415; 70450; 71260; 72125; 72128; 72131; 74177; 80048; 80076; 83690; 85025; 85610; 85730; 99284; Q9967

== ENCOUNTER 2020-06-26 12:42 | Emergency (ER) | payer MEDICARE, MEDICAID ==
[~2020-06-26] VITALS: Ht 167.6 cm; Wt 157.4 kg
[~2020-06-26 12:42] MED LIST changes: -CARVedilol 12.5 MG TAB As Ordered ONE; -ISOVUE-370 76% 100ML VIAL As Ordered ONE; -MAGO400T2 PO; -MIRA3350 PO; -TIZA4CAP PO; -TRES1INJ SC
[2020-06-26] MEDS ORDERED: TRES1INJ SC (13:27)
[2020-06-26] MEDS ORDERED: GI COCKTAIL 50ML BTL(HYOSCYAMINE/MAALOX/LIDOCAINE VISCOUS)(1:3:1) PO ONE (13:30)
[2020-06-26 13:35] LABS: BASO % 0.5 % (0.0-1.0); EOS # 0.4 10^3/uL (0.0-0.5); EOS % 5.2 % (0.0-3.0); HEMATOCRIT 39.4 % (36.0-47.0); HEMOGLOBIN 12.3 g/dl (12.0-15.5); LYMPH # 2.3 10^3/uL (1.5-5.0); LYMPH % 29.5 % (24.0-44.0); MEAN CORPUSCULAR HEMOGLOBIN 29.3 pg (27.0-33.0); MEAN CORPUSCULAR HGB CONC 31.2 g/dl (32.0-36.5); MEAN CORPUSCULAR VOLUME 93.8 fl (80.0-96.0); MONO # 0.7 10^3/uL (0.0-0.8); NEUTROPHILS # 4.4 10^3/uL (1.5-8.5); NEUTROPHILS % 55.4 % (36.0-66.0); PLATELET COUNT, AUTOMATED 178 10^3/uL (150-450); WHITE BLOOD COUNT 7.9 10^3/uL (4.0-10.0)
[2020-06-26 13:50] LABS: INR 1.15; PROTHROMBIN TIME 14.9 SECONDS (12.5-14.3)
--- NOTE | 2020-06-26 14:16 | REPVR ---
PROCEDURE INFORMATION: Exam: XR Abdomen, 1 View Exam date and time: 06/26/2020 1:20 PM Age: 65 years old Clinical indication: Abdominal pain; Additional info: Lower abdominal pain; Constipation TECHNIQUE: Imaging protocol: XR of the abdomen. Views: Frontal supine view of the abdomen. 1 View. (2 images total) COMPARISON: CT ABD/PEL W/IV ORAL CONTRAS 05/05/2020 9:11 PM (report not provided) FINDINGS: Tubes, catheters and devices: Surgical clips overlie the right upper quadrant. Gastrointestinal tract: The small bowel is not significantly air-distended. Air and stool are present within large bowel. The amount of stool appears fairly moderate. Bones/joints: Degenerative changes involve the spine and hips. Soft tissues: Phleboliths overlie the pelvis. IMPRESSION: Fairly moderate colonic stool. Electronically signed by: Leoncio Carroll On 06/26/2020 14:15:50 PM
--- NOTE | 2020-06-26 14:17 | REPVR ---
PROCEDURE INFORMATION: Exam: XR Chest, 1 View Exam date and time: 06/26/2020 12:57 PM Age: 65 years old Clinical indication: Pain; Other: Abd; Additional info: Chest pain TECHNIQUE: Imaging protocol: XR of the chest Views: 1 view. COMPARISON: CR Abdomen,Flat Upright,PA CHEST 08/02/2019 2:39 AM FINDINGS: Limitations: Right lung base not fully included. Lungs: Hazy opacities toward the lung bases likely relate to overlying soft tissues, rather than pulmonary disease. There is again mild linear scarring in the left mid lung field. Pleural space: Unremarkable. No pleural effusion. No pneumothorax. Heart/Mediastinum: The cardiomediastinal silhouette is fairly stable in appearance. Bones/joints: Degenerative changes again involve the spine. IMPRESSION: No definite evidence for acute pulmonary disease on this limited exam. Consider PA and lateral views for better assessment when the patient is able. Electronically signed by: Leoncio Carroll On 06/26/2020 14:16:52 PM
[2020-06-26 15:07] LABS: ALBUMIN 3.3 GM/DL (3.2-5.2); ALT/SGPT 31 U/L (12-78); BILIRUBIN,DIRECT 0.1 MG/DL (0.0-0.2); BILIRUBIN,TOTAL 0.4 MG/DL (0.2-1.0); CK-MB VALUE MASS 5.7 NG/ML (<3.6); CPK CREATINE PHOSPHOKINASE 203 U/L (26-192); LIPASE 234 U/L (73-393); MB/CK RELATIVE INDEX 2.81 (< OR =4); TOTAL PROTEIN 6.8 GM/DL (6.4-8.2); TROPONIN I < 0.02 NG/ML (< 0.10)
--- NOTE | 2020-06-26 15:25 | ECGEPIP ---
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
[2020-06-26 16:11] LABS: BLOOD UREA NITROGEN 35 MG/DL (7-18); CALCIUM LEVEL 8.4 MG/DL (8.8-10.2); CARBON DIOXIDE LEVEL 22 MEQ/L (21-32); CHLORIDE LEVEL 113 MEQ/L (98-107); CREATININE FOR GFR 1.66 MG/DL (0.55-1.30); GLUCOSE, FASTING 97 MG/DL (70-100); POTASSIUM SERUM 5.1 MEQ/L (3.5-5.1); SODIUM LEVEL 141 MEQ/L (136-145)
[2020-06-26] MEDS ORDERED: MIRA3350 PO (16:17)
[2020-06-26 17:07] VITALS: BP 155/84
[2020-07-24] MEDS ORDERED: MAGO400T2 PO (09:09)
[2020-07-24] MEDS ORDERED: TIZA4CAP PO (09:09)
[2020-07-24] MEDS ORDERED: TRAM50TA2 PO (09:09)
== END 2020-06-26 19:08 | disposition home or self-care (01) ==
LOC: M ED 12:42
DX: K59.00 Constipation, unspecified (principal); K29.70 Gastritis, unspecified, without bleeding; R94.31 Abnormal electrocardiogram [ECG] [EKG]; E11.9 Type 2 diabetes mellitus without complications; N18.3 Chronic kidney disease, stage 3 (moderate); I12.9 Hypertensive chronic kidney disease with stage 1 through stage 4 chronic kidney disease, or unspecified chronic kidney disease; E78.5 Hyperlipidemia, unspecified; G25.81 Restless legs syndrome; Z79.4 Long term (current) use of insulin; Z79.899 Other long term (current) drug therapy; Z86.718 Personal history of other venous thrombosis and embolism; Z86.711 Personal history of pulmonary embolism

== ENCOUNTER → 2020-06-27 | Outpatient (CLI) | payer MEDICARE, MEDICAID ==
[~2020-06-27] MED LIST changes: +MAGO400T2 PO; +MIRA3350 PO; +TIZA4CAP PO; +TRES1INJ SC
== END ==
LOC: M PLALAB 14:14
PROVIDERS: ATTEND Physician Assistant Medical
DX: R19.4 Change in bowel habit (principal); Z23 Encounter for immunization
CPT/HCPCS: 36415; 83516; 90670; 90682; G0008; G0009; G0463

== ENCOUNTER → 2020-06-28 | Outpatient (REF) | payer MEDICARE, MEDICAID | LOC: M LAB REF 10:46 | PROVIDERS: ATTEND Physician Assistant Medical | DX: R19.4 Change in bowel habit (principal) ==

== ENCOUNTER → 2020-07-26 | Outpatient (CLI) | payer MEDICARE, MEDICAID | LOC: M LABSMTC 10:25 | PROVIDERS: ATTEND Anesthesiology | DX: Z11.59 Encounter for screening for other viral diseases (principal); Z20.828 Contact with and (suspected) exposure to other viral communicable diseases | CPT/HCPCS: C9803; U0003 ==

== ENCOUNTER 2020-07-31 06:38 | Day surgery (SDC) | payer MEDICARE, MEDICAID ==
[~2020-07-31] VITALS: Ht 165.1 cm; Wt 152.4 kg
[2020-07-31] MEDS ORDERED: NS 1,000 ML IV ONE (07:00)
[2020-07-31] MEDS ORDERED: propofoL 200 MG/20 ML VIAL As Ordered ONE (07:03)
[2020-07-31] MEDS ORDERED: LIDOCAINE 2% 100MG/5ML SDV (FOR ANES.) As Ordered ONE (07:03)
--- NOTE | 2020-07-31 07:55 | ROOR ---
Patient Name: Cecily Stewart Procedure Date: 07/31/2020 7:28 AM Date of : 1955 Age: 65 Room: [facility] Gender: Female Note Status: Finalized Procedure: Colonoscopy Indications: High risk colon cancer surveillance: Personal history of colonic polyps, Incidental change in bowel habits noted Providers: Daniel SUE MD Referring MD: Ronel Camarillo MD Requesting Provider: Medicines: Monitored Anesthesia Care Complications: No immediate complications. Procedure: Pre-Anesthesia Assessment: - The heart rate, respiratory rate, oxygen saturations, blood pressure, adequacy of pulmonary ventilation, and response to care were monitored throughout the procedure. The Colonoscope was introduced through the anus and advanced to 10 cm into the ileum. The colonoscopy was performed without difficulty. The patient tolerated the procedure well. The quality of the bowel preparation was good. Findings: The perianal and digital rectal examinations were normal. A diminutive polyp was found in the descending colon. The polyp was sessile. The polyp was removed with a cold snare. Resection and retrieval were complete. A few medium-mouthed diverticula were found in the sigmoid colon. Internal hemorrhoids were found during retroflexion. The hemorrhoids were medium-sized. The exam was otherwise normal throughout the examined colon. The terminal ileum appeared normal. Biopsies for histology were taken with a cold forceps for evaluation of microscopic colitis. Impression: - One diminutive polyp in the descending colon, removed with a cold snare. Resected and retrieved. - Diverticulosis in the sigmoid colon. - Internal hemorrhoids. - The examined portion of the ileum was normal. - Biopsies were taken with a cold forceps for evaluation of microscopic colitis. Recommendation: - Repeat colonoscopy in 5 years for surveillance. - Telephone endoscopist for pathology results in 2 weeks. Daniel Sue MD Daniel SUE MD 07/31/2020 7:55:39 AM Electronically signed by Daniel SUE MD Number of Addenda: 0 Note Initiated On: 07/31/2020 7:28 AM Estimated Blood Loss: Estimated blood loss: none.
[2020-07-31 08:14] VITALS: BP 181/87
== END 2020-07-31 08:17 | disposition home or self-care (01) ==
LOC: M OPP 06:38
PROVIDERS: ATTEND Internal Medicine Gastroenterology
DX: Z86.010 Personal history of colon polyps (principal); Z09 Encounter for follow-up examination after completed treatment for conditions other than malignant neoplasm; K57.30 Diverticulosis of large intestine without perforation or abscess without bleeding; D12.4 Benign neoplasm of descending colon; K64.8 Other hemorrhoids; I10 Essential (primary) hypertension; E11.9 Type 2 diabetes mellitus without complications; G47.30 Sleep apnea, unspecified; Z79.4 Long term (current) use of insulin; Z79.891 Long term (current) use of opiate analgesic; Z79.899 Other long term (current) drug therapy; Z86.718 Personal history of other venous thrombosis and embolism

== ENCOUNTER → 2020-10-23 | Outpatient (CLI) | payer MEDICARE, MEDICAID ==
[~2020-10-23] MED LIST changes: +GABA-282 PO; -GABA-843 PO
== END ==
LOC: M LABSMTC 13:35
PROVIDERS: ATTEND Family Medicine
DX: Z20.822 Contact with and (suspected) exposure to COVID-19 (principal)

== ENCOUNTER → 2020-11-20 | Outpatient (CLI) | payer MEDICARE, MEDICAID ==
[2020-11-20 16:19] LABS: HEMOGLOBIN A1c 7.6 %
== END ==
LOC: M PLALAB 12:20
PROVIDERS: ATTEND Surgery
DX: Z86.39 Personal history of other endocrine, nutritional and metabolic disease (principal); E11.22 Type 2 diabetes mellitus with diabetic chronic kidney disease; E78.2 Mixed hyperlipidemia

== ENCOUNTER → 2020-11-20 | Outpatient (REF) | payer MEDICARE, MEDICAID ==
[2020-11-20 15:22] LABS: CHOLESTEROL RISK RATIO 3.555 (<5)
[2020-11-20 16:18] LABS: HEMOGLOBIN A1c 7.6 %
== END ==
LOC: M SFHCPLAZ 12:23
PROVIDERS: ATTEND Family Medicine
DX: E11.22 Type 2 diabetes mellitus with diabetic chronic kidney disease (principal); E78.2 Mixed hyperlipidemia

== ENCOUNTER 2020-11-24 17:09 | Emergency (ER) | payer MEDICARE, MEDICAID ==
[2020-11-24] MEDS ORDERED: diazePAM 10MG/2ML SYRINGE (J3360 PER 5MG) IV ONE (17:30)
[2020-11-24 17:57] LABS: BASO % 0.5 % (0.0-1.0); EOS # 0.4 10^3/uL (0.0-0.5); HEMATOCRIT 41.7 % (36.0-47.0); HEMOGLOBIN 12.9 g/dl (12.0-15.5); LYMPH % 27.2 % (24.0-44.0); MEAN CORPUSCULAR HEMOGLOBIN 29.3 pg (27.0-33.0); MEAN CORPUSCULAR HGB CONC 30.9 g/dl (32.0-36.5); MEAN CORPUSCULAR VOLUME 94.8 fl (80.0-96.0); MONO # 0.6 10^3/uL (0.0-0.8); MONO % 8.1 % (2.0-8.0); NEUTROPHILS # 4.4 10^3/uL (1.5-8.5); NEUTROPHILS % 58.8 % (36.0-66.0); PLATELET COUNT, AUTOMATED 181 10^3/uL (150-450); WHITE BLOOD COUNT 7.5 10^3/uL (4.0-10.0)
[2020-11-24 18:32] LABS: ALBUMIN 3.3 GM/DL (3.2-5.2); ALT/SGPT 23 U/L (12-78); BILIRUBIN,DIRECT < 0.1 MG/DL (0.0-0.2); BILIRUBIN,TOTAL 0.3 MG/DL (0.2-1.0); BLOOD UREA NITROGEN 16 MG/DL (7-18); CALCIUM LEVEL 8.7 MG/DL (8.8-10.2); CARBON DIOXIDE LEVEL 27 MEQ/L (21-32); CHLORIDE LEVEL 112 MEQ/L (98-107); CK-MB VALUE MASS 2.5 NG/ML (<3.6); CPK CREATINE PHOSPHOKINASE 149 U/L (26-192); CREATININE FOR GFR 1.31 MG/DL (0.55-1.30); GLOMERULAR FILTRATION RATE 43.4 (>45); GLUCOSE, FASTING 86 MG/DL (70-100); LIPASE 162 U/L (73-393); MB/CK RELATIVE INDEX 1.68 (< OR =4); POTASSIUM SERUM 4.1 MEQ/L (3.5-5.1); SODIUM LEVEL 145 MEQ/L (136-145); TOTAL PROTEIN 7.2 GM/DL (6.4-8.2); TROPONIN I < 0.02 NG/ML (< 0.10)
[2020-11-24] MEDS ORDERED: CARVedilol 12.5 MG TAB PO ONE (19:25)
[2020-11-24] MEDS ORDERED: MECLIZINE 25 MG TABLET PO ONE (19:25)
[2020-11-24 19:51] VITALS: BP 167/88
[2020-11-24 21:29] VITALS: BP 179/89
--- NOTE | 2020-11-25 19:54 | ECGEPIP ---
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
== END 2020-11-24 21:33 | disposition home or self-care (01) ==
LOC: M ED 17:09 → EDBD 17:09 → M ED 21:33
DX: H81.399 Other peripheral vertigo, unspecified ear (principal); E11.9 Type 2 diabetes mellitus without complications; I12.9 Hypertensive chronic kidney disease with stage 1 through stage 4 chronic kidney disease, or unspecified chronic kidney disease; N18.30 Chronic kidney disease, stage 3 unspecified; E78.5 Hyperlipidemia, unspecified; F33.9 Major depressive disorder, recurrent, unspecified; F41.9 Anxiety disorder, unspecified; K21.9 Gastro-esophageal reflux disease without esophagitis; G25.81 Restless legs syndrome; Z79.899 Other long term (current) drug therapy; Z79.4 Long term (current) use of insulin
CPT/HCPCS: 80048; 80076; 82550; 82553; 83690; 84443; 84484; 85025; 93005; 93041; 94760; 96374; 99285; J3360

== ENCOUNTER 2021-02-04 19:18 | Emergency (ER) | payer MEDICARE, MEDICAID ==
[~2021-02-04] VITALS: Ht 167.6 cm; Wt 151.0 kg
[~2021-02-04 19:18] MED LIST changes: +GABA-283 PO; -GABA-845 PO; +LOPE1LIQ25 PO; -LOPE1SUS PO
[2021-02-04] MEDS ORDERED: NS 500 ML IV ONE (23:15)
[2021-02-04] MEDS ORDERED: METOCLOPRAMIDE 5 MG TAB PO ONE (23:15)
[2021-02-04] MEDS ORDERED: MECLIZINE 25 MG TABLET PO ONE (23:25)
[2021-02-04] MEDS ORDERED: MECLIZINE 12.5 MG TAB PO ONE (23:25)
[2021-02-04] MEDS ORDERED: CARVedilol 12.5 MG TAB PO ONE (23:25)
[2021-02-04 23:59] VITALS: BP 158/92
[2021-02-05 00:09] LABS: BASO # 0.1 10^3/uL (0.0-0.2); BASO % 0.6 % (0.0-1.0); EOS # 0.3 10^3/uL (0.0-0.5); EOS % 2.5 % (0.0-3.0); HEMATOCRIT 43.4 % (36.0-47.0); HEMOGLOBIN 13.4 g/dl (12.0-15.5); LYMPH # 3.2 10^3/uL (1.5-5.0); LYMPH % 28.8 % (24.0-44.0); MEAN CORPUSCULAR HEMOGLOBIN 28.8 pg (27.0-33.0); MEAN CORPUSCULAR HGB CONC 30.9 g/dl (32.0-36.5); MEAN CORPUSCULAR VOLUME 93.3 fl (80.0-96.0); MONO # 0.8 10^3/uL (0.0-0.8); MONO % 7.3 % (2.0-8.0); NEUTROPHILS # 6.8 10^3/uL (1.5-8.5); NEUTROPHILS % 60.4 % (36.0-66.0); PLATELET COUNT, AUTOMATED 197 10^3/uL (150-450); RED BLOOD COUNT 4.65 10^6/uL (4.00-5.40); WHITE BLOOD COUNT 11.2 10^3/uL (4.0-10.0)
[2021-02-05] MEDS ORDERED: METOCLOPRAMIDE INJ 10MG/2ML VIAL (J2765 PER 1) IV ONE (00:15)
[2021-02-05 02:20] LABS: CALCIUM LEVEL 8.3 MG/DL (8.8-10.2); CREATININE FOR GFR 1.55 MG/DL (0.55-1.30); GLOMERULAR FILTRATION RATE 35.7 (>45); MAGNESIUM LEVEL 1.5 MG/DL (1.8-2.4); POTASSIUM SERUM 4.2 MEQ/L (3.5-5.1)
[2021-02-05 02:42] VITALS: BP 140/82
== END 2021-02-05 02:43 | disposition home or self-care (01) ==
LOC: M ED 19:18
DX: I12.9 Hypertensive chronic kidney disease with stage 1 through stage 4 chronic kidney disease, or unspecified chronic kidney disease (principal); N18.30 Chronic kidney disease, stage 3 unspecified; E11.9 Type 2 diabetes mellitus without complications; E78.5 Hyperlipidemia, unspecified; Q60.2 Renal agenesis, unspecified; F79 Unspecified intellectual disabilities; Z79.899 Other long term (current) drug therapy; Z79.4 Long term (current) use of insulin
CPT/HCPCS: 80047; 80048; 83735; 85025; 96361; 96374; 99284; J2765

== ENCOUNTER 2021-02-10 23:56 | Emergency (ER) | payer MEDICARE, MEDICAID ==
[~2021-02-10] VITALS: Ht 167.6 cm; Wt 149.6 kg
--- NOTE | 2021-02-11 02:59 | REPVR ---
PROCEDURE INFORMATION: Exam: XR Left Ankle Exam date and time: 02/11/2021 2:13 AM Age: 65 years old Clinical indication: Pain; Ankle; Left; Additional info: Left ankle pain TECHNIQUE: Imaging protocol: XR Left ankle. Views: 3 or more views. COMPARISON: CR Foot, complete 02/28/2017 8:21 AM FINDINGS: Bones/joints: Osteopenia. Degenerative spurring of the ankle with some cystic changes in the distal fibula. Mild inferior calcaneal spurring. No fractures. Soft tissues: Mild diffuse subcutaneous edema with localized soft tissue swelling along the medial aspect of the ankle. IMPRESSION: 1. Diffuse edema, greatest along the medial aspect of the ankle. 2. Osteopenia. 3. Degenerative changes of the ankle. 4. No fracture. Electronically signed by: Jose Rafael Kong On 02/11/2021 02:58:59 AM
--- NOTE | 2021-02-11 03:01 | REPVR ---
PROCEDURE INFORMATION: Exam: XR Left Foot Exam date and time: 02/11/2021 2:13 AM Age: 65 years old Clinical indication: Pain; Foot; Left; Additional info: Left ankle pain TECHNIQUE: Imaging protocol: XR Left foot. Views: 3 or more views. COMPARISON: CR Foot, complete 02/28/2017 8:21 AM FINDINGS: Bones/joints: Osteopenia. Minimal inferior calcaneal spurring. No fractures. Soft tissues: Mild edema of the foot, greatest distally. IMPRESSION: 1. Mild edema of the foot. 2. Osteopenia. 3. Otherwise negative left foot. No fracture. Electronically signed by: Jose Rafael Kong On 02/11/2021 03:00:59 AM
[2021-02-11] MEDS ORDERED: PERCOCET 5MG/325MG TAB PO ONE (03:45)
[2021-02-11] MEDS ORDERED: predniSONE 20 MG TAB PO ONE (05:55)
[2021-02-11] MEDS ORDERED: allopurinoL 100 MG TAB PO STA (05:55)
[2021-02-11] MEDS ORDERED: PRED20TA PO (05:59)
[2021-02-11] MEDS ORDERED: PEPC1TAB5 PO (06:00)
[2021-02-11 06:14] VITALS: BP 129/67
== END 2021-02-11 06:16 | disposition home or self-care (01) ==
LOC: M ED 23:56
DX: M10.9 Gout, unspecified (principal); Z79.899 Other long term (current) drug therapy; Z79.4 Long term (current) use of insulin
CPT/HCPCS: 73610; 73630; 99283; J7512

== ENCOUNTER 2021-02-11 10:36 | Emergency (ER) | payer MEDICARE, MEDICAID ==
[~2021-02-11] VITALS: Ht 167.6 cm; Wt 154.1 kg
[~2021-02-11 10:36] MED LIST changes: +PEPC1TAB5 PO
[2021-02-11] MEDS ORDERED: CARVedilol 12.5 MG TAB PO ONE (11:55)
--- NOTE | 2021-02-11 12:24 | REP ---
INDICATION: CHEST PAIN. COMPARISON: 06/26/2020. TECHNIQUE: Single portable AP view of the chest was performed. FINDINGS: There is mild cardiomegaly. The mediastinal silhouette is unchanged. There is no acute infiltrate. There are mild bibasilar interstitial fibrotic changes. There are degenerative changes of the spine. IMPRESSION: No acute pulmonary disease.Stable mild cardiomegaly and chronic interstitial changes. <Electronically signed by Calin Doan > 02/11/21 0114
[2021-02-11 12:41] LABS: BASO % 0.3 % (0.0-1.0); EOS # 0.1 10^3/uL (0.0-0.5); EOS % 0.4 % (0.0-3.0); HEMATOCRIT 43.9 % (36.0-47.0); LYMPH # 1.1 10^3/uL (1.5-5.0); LYMPH % 9.3 % (24.0-44.0); MEAN CORPUSCULAR HEMOGLOBIN 29.4 pg (27.0-33.0); MEAN CORPUSCULAR HGB CONC 31.9 g/dl (32.0-36.5); MONO # 0.3 10^3/uL (0.0-0.8); MONO % 2.2 % (2.0-8.0); NEUTROPHILS # 10.3 10^3/uL (1.5-8.5); NEUTROPHILS % 87.2 % (36.0-66.0); PLATELET COUNT, AUTOMATED 210 10^3/uL (150-450); RED BLOOD COUNT 4.77 10^6/uL (4.00-5.40); WHITE BLOOD COUNT 11.8 10^3/uL (4.0-10.0)
[2021-02-11 12:53] VITALS: BP 199/103
[2021-02-11 13:16] LABS: CALCIUM LEVEL 8.8 MG/DL (8.8-10.2); CREATININE FOR GFR 1.14 MG/DL (0.55-1.30); FREE T4 1.12 NG/DL (0.76-1.46); GLOMERULAR FILTRATION RATE 50.9 (>45); POTASSIUM SERUM 5.6 MEQ/L (3.5-5.1); THYROID STIMULATING HORMONE 2.03 uIU/ML (0.358-3.740)
[2021-02-11] MEDS ORDERED: NORCO, ANEXSIA 5/325MG TABLET (HYDROcodone/ACETAMINOPHEN) PO ONE (14:10)
[2021-02-11 15:06] VITALS: BP 178/98
--- NOTE | 2021-02-12 05:53 | ECGEPIP ---
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
== END 2021-02-11 15:21 | disposition home or self-care (01) ==
LOC: M ED 10:36
DX: M10.9 Gout, unspecified (principal); I12.9 Hypertensive chronic kidney disease with stage 1 through stage 4 chronic kidney disease, or unspecified chronic kidney disease; E10.65 Type 1 diabetes mellitus with hyperglycemia; N18.9 Chronic kidney disease, unspecified; E78.9 Disorder of lipoprotein metabolism, unspecified; Z79.899 Other long term (current) drug therapy; Z79.4 Long term (current) use of insulin

== ENCOUNTER → 2021-02-28 | Outpatient (CLI) | payer MEDICARE, MEDICAID ==
--- NOTE | 2021-02-28 12:18 | DEXAMM ---
INDICATION: M81.0 AGE RELATED OSTEOPOROSIS. COMPARISON: 05/15/2005 TECHNIQUE: Bone density was measured using dual-energy x-ray absorptiometry (DEXA). FINDINGS: AP SPINE L1-L4 BMD 1.458 g/cm2 Young Adult T-Score 2.1 Age Matched Z-Score 3.7. LT FEMUR, TOTAL BMD 1.005 g/cm2 Young Adult T-Score 0.0 Age Matched Z-Score 1.2. LT NECK BMD 0.951 g/cm2 Young Adult T-Score -0.6 Age Matched Z-Score 0.9. RT FEMUR, TOTAL BMD 1.006 g/cm2 Young Adult T-Score 0.0 Age Matched Z-Score 1.2. RT NECK BMD 0.884 g/cm2 Young Adult T-Score -1.1 Age Matched Z-Score 0.4. IMPRESSION: There is normal bone density of the spine. There is normal bone density of the left hip. There is low bone density of the right hip. The density of the spine has decreased 7.0% since the initial exam on 05/15/2005. The density of the left hip has decreased 18.4% since initial exam on 05/15/2005. The density of the right hip has decreased 19.2% since the initial exam on 05/15/2005. FOLLOW-UP: Recommendation for the next bone density exam: 2 years. <Electronically signed by Calin Doan > 02/28/21 1196
== END ==
LOC: M WHC 09:48
PROVIDERS: ATTEND Family Medicine
DX: M81.0 Age-related osteoporosis without current pathological fracture (principal)

== ENCOUNTER 2021-03-20 21:21 | Emergency (ER) | payer MEDICARE, MEDICAID ==
[~2021-03-20] VITALS: Ht 167.6 cm; Wt 152.9 kg
[~2021-03-20 21:21] MED LIST changes: +ERGO500029 PO; +FAMO10TA50 PO; -FAMO1TAB25 PO; +OMEP40CA4 PO; -OMEP40CA97 PO; -VITA50005 PO
[2021-03-20] MEDS ORDERED: CLOP75TA2 (22:02)
[2021-03-20 22:20] LABS: BASO # 0.1 10^3/uL (0.0-0.2); BASO % 0.5 % (0.0-1.0); EOS # 0.3 10^3/uL (0.0-0.5); EOS % 3.1 % (0.0-3.0); HEMATOCRIT 43.3 % (36.0-47.0); HEMOGLOBIN 13.6 g/dl (12.0-15.5); LYMPH % 26.9 % (24.0-44.0); MEAN CORPUSCULAR HEMOGLOBIN 29.2 pg (27.0-33.0); MEAN CORPUSCULAR HGB CONC 31.4 g/dl (32.0-36.5); MEAN CORPUSCULAR VOLUME 93.1 fl (80.0-96.0); MONO # 0.9 10^3/uL (0.0-0.8); MONO % 8.3 % (2.0-8.0); NEUTROPHILS # 6.7 10^3/uL (1.5-8.5); NEUTROPHILS % 60.8 % (36.0-66.0); PLATELET COUNT, AUTOMATED 230 10^3/uL (150-450); RED BLOOD COUNT 4.65 10^6/uL (4.00-5.40)
[2021-03-20 22:30] LABS: INR 1.09; PROTHROMBIN TIME 14.3 SECONDS (12.5-14.3)
[2021-03-20 22:51] LABS: ALBUMIN 3.3 GM/DL (3.2-5.2); ALT/SGPT 25 U/L (12-78); BILIRUBIN,DIRECT 0.1 MG/DL (0.0-0.2); BILIRUBIN,TOTAL 0.4 MG/DL (0.2-1.0); CK-MB VALUE MASS 3.8 NG/ML (<3.6); CPK CREATINE PHOSPHOKINASE 210 U/L (26-192); LIPASE 195 U/L (73-393); MB/CK RELATIVE INDEX 1.81 (< OR =4); TOTAL PROTEIN 7.4 GM/DL (6.4-8.2); TROPONIN I < 0.02 NG/ML (< 0.10)
[2021-03-20] MEDS ORDERED: KETOROLAC 30 MG/ML 1ML VIAL IV ONE (23:30)
--- NOTE | 2021-03-20 23:35 | REPVR ---
PROCEDURE INFORMATION: Exam: XR Chest Exam date and time: 03/20/2021 9:59 PM Age: 66 years old Clinical indication: Other: Chest pain TECHNIQUE: Imaging protocol: XR of the chest. Views: 1 view. COMPARISON: 1. ID PORTABLE CHEST X-RAY 2021-02-11 12:06 2. CR PORTABLE CHEST X-RAY 2020-06-26 13:20 FINDINGS: Limitations: Limited by patient's body habitus. Lungs: Dependent subsegmental pulmonary atelectasis. Pleural spaces: Unremarkable. No pleural effusion. No pneumothorax. Heart/Mediastinum: Unremarkable. No cardiomegaly. Bones/joints: Unremarkable. IMPRESSION: No acute findings. Electronically signed by: Daniel Combs On 03/20/2021 23:34:59 PM
[2021-03-21 02:42] LABS: CK-MB VALUE MASS 4.1 NG/ML (<3.6); CPK CREATINE PHOSPHOKINASE 164 U/L (26-192); TROPONIN I < 0.02 NG/ML (< 0.10)
[2021-03-21] MEDS ORDERED: METOCLOPRAMIDE INJ 10MG/2ML VIAL (J2765 PER 1) IV ONE (03:35)
[2021-03-21] MEDS ORDERED: diphenhydrAMINE 50MG/ML VIAL (J1200) IV ONE (03:35)
[2021-03-21] MEDS ORDERED: ACETAMINOPHEN 500 MG TAB PO ONE (03:35)
[2021-03-21] MEDS ORDERED: NORCO, ANEXSIA 5/325MG TABLET (HYDROcodone/ACETAMINOPHEN) PO ONE (03:35)
[2021-03-21 05:09] VITALS: BP 149/85
--- NOTE | 2021-03-21 20:42 | ECGEPIP ---
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
--- NOTE | 2021-03-21 20:44 | ECGEPIP ---
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
== END 2021-03-21 05:11 | disposition home or self-care (01) ==
LOC: M ED 21:21
DX: R07.89 Other chest pain (principal); R06.02 Shortness of breath; E11.9 Type 2 diabetes mellitus without complications; I10 Essential (primary) hypertension; E78.5 Hyperlipidemia, unspecified; G47.33 Obstructive sleep apnea (adult) (pediatric); Z79.899 Other long term (current) drug therapy; Z79.4 Long term (current) use of insulin; Z79.01 Long term (current) use of anticoagulants
CPT/HCPCS: 71045; 80047; 80076; 82550; 82553; 83690; 84484; 85025; 85610; 93005; 93041; 94760; 96374; 96375; 99285; J1200; J1885; J2765

== ENCOUNTER → 2021-06-21 | Outpatient (REF) | payer MEDICARE, MEDICAID ==
[~2021-06-21] MED LIST changes: +CLOP75TA2
== END ==
LOC: M LAB REF 13:04
PROVIDERS: ATTEND Nurse Practitioner Family
DX: E83.42 Hypomagnesemia (principal)

== ENCOUNTER 2021-07-23 03:00 | Inpatient (IN) | payer MEDICARE, MEDICAID ==
[~2021-07-23] VITALS: Ht 162.6 cm; Wt 151.8 kg
--- OUTSIDE RECORDS SUMMARY | 2021-07-23 03:09 | CCD ---
Author Author [facility] Organization [facility] Address Unknown Phone Unavailable Care Team Providers Care Sewer Tapper Name Role Phone Ronel Camarillo Unavailable PROBLEMS Type Condition ICD9-CM Code [id number] Code Onset Dates Condition S tatus W/U Status Risk SNOMED Code Notes Problem Vitamin D deficiency E55.9 Active confirmed 89141604 Problem Essential hypertension I10 Active confirmed 86283330 She has hypertension which is reasonably controlled on carvedilol, amiloride. She sees a bellows tester also who assists in medication adjustments. Problem Type 2 diabetes mellitus with diabetic chronic kidney disease E11.22 Active confirmed 05440953 Follows with Dr Eleanor Henley; on high-dose basal insulin, Victoza, glimepiride. 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 Problem Neuropathy G62.9 Active confirmed 567948686 Problem Hx of venous thromboembolic disease Z86.718 Acti ve confirmed 179938505 Problem Arthritis of left knee M17.12 Active confirmed 4815841707309229 Problem Seasonal allergies J30.2 Active confirmed 4 67432107 Problem Intractable migraine without aura and without st atus migrainosus G43.019 Active confirmed 399999983 Problem Restless leg syndrome G25.81 Active confirmed 11709151 Problem Rhinitis, unspecified type J31.0 Active confirmed 31062122 Problem Low back pain M54.5 Active confirmed 898799 009 Problem Other chronic pain G89.29 Active confirmed 8 5608359 Problem FREDDY (obstructive sleep apnea) G47.33 Active confirm ed 91355399 Problem Mixed hyperlipidemia E78.2 Active confirmed 333945442 Problem Glaucoma of both eyes, unspecified glaucoma type H 40.9 Active confirmed 06591956 Problem Morbid (severe) obesity due to excess calories E66 .01 Active confirmed [id number] ALLERGIES No Known Allergies ENCOUNTERS from 1955 to 2021-05-01 Encounter Location Date Provider Diagnosis [place] [id number] [facility] [phone] [place] [address] Apr, Ronel Camarillo Intractable migraine without aura and without status migrainosus G43.019 IMMUNIZATIONS Vaccine Route Administration Date Status Pneumococcal 0.5mL Prevnar 13 IM Intramuscular Jun 27, 2020 A dministered Influenza 18 yrs & older Flublok IM Intramuscular Jun 27, 2020 Administered Influenza 18 yrs & older Flublok IM Intramuscular Jul 27, 2018 Administered Pneumococcal Adult 0.5mL Pneumovax 23 IM Intramuscular Jul 27 018 Administered Influenza 6mo & up Fluzone Unknown Jun 02, 2017 Admin istered Influenza 6mo & up Fluzone Unknown Nov 05, 2016 Admin istered Influenza 6mo & up Fluzone IM Intramuscular Sep 30, 2016 Admi nistered Influenza 6mo & up Fluzone Unknown Sep 29, 2016 Admin istered SOCIAL HISTORY Tobacco Use: Social History Observation Description Date Details (start date - stop date) Never Smoker Sex Assigned At : Social History Observation Description Sex Assigned At Unknown Education: Question Answer Notes Level of Education: Finished High School Audit Question Answer Notes Total Score: 0 Interpretation: Alcohol Education Language: Question Answer Notes Languages spoken: Trinidadian Adventist: Question Answer Notes Adventist 33 None Domestic Violence: Question Answer Notes Status: Single Sexual Hx: Question Answer Notes Had sex in the last 12 months (vaginal, oral, or anal)? No Have you ever had an STD? No Drug and Alcohol Question Answer Notes Total Score: 0 Interpretation: No problems reported Alcohol Screening: Question Answer Notes Did you have a drink containing alcohol in the past year? No Points 0 Interpretation Negative BMI Care Goal Follow-Up Question Answer Notes Above Normal BMI Follow-Up Giving encouragement to exercise Tobacco Use: Question Answer Notes Are you a: never smoker REASON FOR REFERRAL No Information VITAL SIGNS Weight 333.4 lbs Apr, Height 65 in Apr, BMI 55.47 kg/m2 Apr, Heart Rate 100 /min Apr, Respiratory Rate 18 /min Apr, Temperature 95.6 degrees Fahrenheit Apr, Oximetry 97 Apr, Blood pressure systolic 140 mm Hg Apr, Blood pressure diastolic 80 mm Hg Apr, MEDICATIONS Medication SIG (Take, Route, Frequency, Duration) Notes Start Da te End Date Status Tresiba FlexTouch 200 UNIT/ML 150 units Subcutaneous daily Not-Taking Cetirizine HCl 10 MG 1 capsule Orally Once a day Feb, Not-Taking rOPINIRole HCl 1 MG TAKE ONE TABLET BY MOUTH 1 T O 3 HOUR BEFORE BEDTIME Oral before bedtime for 90 days Activ e Gabapentin 600 mg TAKE ONE TABLET BY MOUTH THR EE TIMES A DAY Orally Three times a day Active Glimepiride 4 MG 1 tab Orally twice daily Active Blood Glucose Test - as directed In Vitro four times daily E11.2 2 Mar, Active Simvastatin 80 MG TAKE ONE TABLET BY MOUTH EVERY EVENING Oral Daily for 90 Active Lancets 28G as directed SQ four times a day Mar, Active Blood Glucose Meter - as directed E.08.19Mar, Active Omeprazole 20 MG 1 capsule 30 minutes before morning meal Orally On ce a day Active HumaLOG KwikPen 100 UNIT/ML as directed Subcutaneous s liding scale three times a day Active Unifine Pentips 29G X 12MM 1 pentip subcutaneously four times da jem dx e11. Active Cotton Balls - as directed Dx E11.January, Active Latanoprost 0.005 % INSTILL ONE DROP IN EACH EYE EVERY EVENING Ophtha lmic Active Allopurinol 300 MG 1 tablet Orally Once a day Active Magnesium 400 MG 2 capsules Orally twice daily Oct, 7 Not-Taking Cinacalcet HCl 30 MG 1 tablet with food or after a meal Orally M -Thursday Active Astepro 0.15 % 1 spray in each nostril Nasally Twice a day Not-Taking Vitamin D3 250 MCG (31319 UT) as directed Orally Active Depakote 250 MG 2 tablets Orally Daily Active Glucosamine Chond MSM Formula - 1 tab Orally Daily for 30 Days Active Miralax 17 grams orally at hour of s leep for as needed for constipation for up to 30 days Active SM Alcohol Prep 70 % as directed Externally three times daily Feb, Active traMADol HCl 50 MG 1 tablet as needed Orally Twice a day; MDD_#2 Jul, Active Carvedilol 25 MG 1 tab Orally twice daily Active Depend Adjustable Underwear Lg - as directed TID; ICD_ #10: R32 Active Gabapentin 600 MG TAKE ONE TABLET BY MOUTH THREE TIMES A DAY for 90 duplicate Not-Taking Victoza 18 MG/3ML 1.8ml Subcutaneous once daily Not-Taking Flonase Allergy Relief 50 MCG/ACT 2 sprays each nostri l Nasally Once a day for 30 days Mar, Active Metamucil 30.9 % as directed Orally Not-Taking tiZANidine HCl 4 MG 1 tablet as needed Orally Three times a day Active Biofreeze Roll-On 4 % 1 application as needed Externally Three time s a day Not-Taking Loperamide HCl 2 MG 1 capsule as needed Orally Four times a day Not-Taking Tylenol 325 MG 2 tablets as needed Orally every 6 hrs Active Meclizine HCl 25 mg 1 tablet as needed Orally Once a day for 30 Days Active Zofran ODT 4 MG 1 tablet on the tongue and a llow to dissolve Orally every 8 hrs prn nausea and vomiting for 4 days Jun, Active Vitamin D (Ergocalciferol) 05947 UNIT 1 capsule Orally weekly Not-Taking PROCEDURES No Information RESULTS No Results REASON FOR VISIT F/u headaches MEDICAL (GENERAL) HISTORY Type Description Date Medical History IDDM - Dr. Henley Medical History Diabetic neuropathy Medical History CKD stage 3b - Dr. Clarke Medical History Absent right kidney since Medical History HTN Medical History HLD Medical History Gout Medical History Osteoarthritis - previously seen by Dr. Street Medical History History of DVT Medical History History of PE (not at the same time as D VT) Medical History RLS Medical History GERD Medical History Depression Medical History Vitamin D deficiency Medical History FREDDY - Pulm, compliant with CPAP Medical History Glaucoma - [facility] Medical History Osteopenia - [facility] 01/2021 Frax score 5.3/ 0.4 Surgical History Back surgery "disc #5 removed" 1970 Surgical History Cholecystectomy Surgical History Varicose veins Surgical History Colonoscopy - Dr. Sue, 2 polyps removed, 1 of which was a tubular adenoma 2009 Surgical History LEEP - Dr. Ellis 05/2016 Surgical History Right breast biopsy for category 4 mammo gram - Dr. Medrano 12/17/2016 Surgical History Colonoscopy - adenomatous po lyp/tubular adenomas; Dr. Sue; r/p in 3 years 02/2017 Surgical History Left open carpal tunnel release-Dr. Lynn duarte 09/01/2018 Surgical History Colonoscopy - diverticulosis , [facility], 1 small polyp; Dr. Sue, repeat in 5 years 07/2020 Hospitalization History Pnemonia 05/31/2017 Hospitalization History Pleural Effusion 06/20/2017 Hospitalization History IMHU 04/2020 Goals Section No Information Health Concerns No Information MEDICAL EQUIPMENT No Information MENTAL STATUS No Information FUNCTIONAL STATUS No Information ASSESSMENTS Encounter Date Diagnosis Assessment Notes Treatment Notes Treatm ent Clinical Notes Apr, Intractable migraine without aura and without status migrainosus (ICD-10 - G43.019) I encouraged her to continue Depakote and give this more of a chance to work. I advised her to f/u with Neuro and tell them if a medication is not working, so they can either increase the dose or change to a different medication. In the past, she has a tendency in the past of getting frustrated when a medication doesn't work, then not following up with Neuro for a while, so they start all over again when she does go back to see them. She agrees to continue to follow with Neuro, and her hall director Laine is here with her and will try to help her with follow up. PLAN OF TREATMENT Medication Medication Name Sig Start Date Stop Date Depakote 250 MG 2 tablets Orally Daily Treatment Notes Assessment Notes Clinical Notes Intractable migraine without aura and without status migrain osus I encouraged her to continue Depakote and give this more of a chance to work. I advised her to f/u with Neuro and tell them if a medication is not working, so they can either increase the dose or change to a different medication. In the past, she has a tendency in the past of getting frustrated when a medication doesn't work, then not following up with Neuro for a while, so they start all over again when she does go back to see them. She agrees to continue to follow with Neuro, and her hall director Laine is here with her and will try to help her with follow up. Next Appt Details 2-3 months Reason:F/u med prob Provider Name:Ronel Camarillo, 2021-07-23 02:15:00 PM, [address] [facility], , [place], [address], Follow Up:2-3 monthsF/u med prob Insurance Providers Payer Name Payer Address Payer Phone Insured Name Patient Relati onship to Insured Coverage Start Date Coverage End Date [facility] [address] [facility] [phone] [address] [facility] [address] [facility] [id number] NISHA PERAELS self
--- OUTSIDE RECORDS SUMMARY | 2021-07-23 03:09 | CCD | Continuity of Care Document ---
Author Author [facility]ily [facility] Organization Unknown Address [address] [place] [address] Phone [phone] Care Team Providers Care Integration Technician Name Role Phone Ronel Camarillo MD AUTM [phone] Problems Description No Information Available Social History Type Date Description Comments Sex Unknown ETOH Use Denies alcohol use Tobacco Use Start: Unknown Denies Smoking Allergies and adverse reactions Description No Known Drug Allergies Medications Active Medications SIG Qnty Indications Ordering Provide r Date Synvisc One 48mg/6ML Soln Prefill Syringe vicki knee synvisc #1 KLF/TF M17.[address] MD Synvisc 16mg/2ML Soln Prefill Syri nge vicki knee KLF/Ag 01/17/2021. 6ml Fabio Mariscal MD 01/17 Tizanidine HCL 4mg Tablets 1 by mouth three times a day 30tabs [address]to [address] MD 05/08/2020 Glucosamine Chondroitin 1500 Complex Max imum Strength 1500Com Capsules Unknow n Afluria Quadrivalent 0.5ml Marcie Inject as Directed Unknown Polyethylene Glycol 3350 17GM/Scoop Powder Take 17 Grams By Mouth Mix With 8 Ounces Of Water Daily Unknown SM Fiber Powder 25% Powder Mix 1 Tablespoonful In 6 Ounces Of Liquid Daily Unknow n SM Alcohol Prep 70% Pads as Directed Three Times A Day Unknown Tramadol HCL 50mg Tablets Take 1 Tablet By Mouth Twice A Day as Needed Max Daily Dose 2 Tablets Unknown Victoza 18mg/3ML Solution Pen-Inje ct Inject 1.8MG Under The Skin Once Daily Maximum Daily Dose = 1.8 Unknown Cinacalcet HCL 30mg Tablets Take 1 Tablet By Mouth 3 Times A Week Thursday U nknown Meclizine HCL 25mg Tablets Take One Tablet By Mouth Every Day as Needed Unknown Latanoprost 0.005% Solution Unknown BD Pen Needle/Original/Ultra-Fine/29G X 12.7mm 29G X 12.7mm Misc Use as Directed 6 Times A Day Maximum Daily Dose 6 Unknown Azelastine HCL (Nasal) 0.15% Solut ion Lemhi 1 Lemhi In Each Nostril Two Times A Day Un known FQ Protective Underwear Large 45-58" Misc Use as Directed Three Times A Day Unknown Glimepiride 4mg Tablets Ronel Camarillo MD Cetirizine HCL 10mg Tablets Unknown Basaglar Kwikpen 100 Unit/ML Solution Pen-Inject inject 28 units every night at bedtime maximum daily dose = 28 u nits Unknown Novolog Flexpen 100U nit/ML Solution Pen-Inject use as directed per sliding scale Unknown Simvastatin 80mg Tablets 1 by mouth every day Unknown Allopurinol 300mg Tablets 1 by mouth every day Unknown Ropinirole HCL 1mg Tablets 1 tab by mouth every day at bedtime Unknown Loperamide HCL 2mg Capsules take one capsule by mouth once daily in the morning. january repeat 1 dose in the day as needed for loose stools Unknown 00 Carvedilol 12.5mg Tablets 1 by mouth twice a day Unknown Famotidine 20mg Tablets 1 by mouth twice a day Unknown Magnesium Oxide 400(240Mg) mg Tabl ets 2 by mouth every day Unknown Amiloride HCL 5mg Tablets Unknown Gabapentin 600mg Tablets 1 by mouth three times a day Unknown Vitamin D2 Tablets Unknown Immunizations Description No Information Available Vital Signs Date Vital Result Comment 05/08/2020 1:47pm Body Temperature 97.8 F Height 66 inches 5'6" Weight 330.00 lb BMI (Body Mass Index) 53.3 kg/m2 08/02/2019 1:03pm Body Temperature 97.3 F Height 65.5 inches 5'5.50" Weight 330.12 lb BMI (Body Mass Index) 54.1 kg/m2 Results Description No Information Available Procedures Date Code Description Status 07/22/202197187 Inject/Drain Joint/Bursa Major C ompleted Medical Devices Description No Information Available Encounters Type Date Location Provider Dx Diagnosis Office Visit 07/22/2021 1:15p [place] Niesha Mariscal PA-C M17.0 Bilateral primary osteoarthritis of knee Assessments Date Code Description Provider 07/22/2021 M17.0 Bilateral primary osteoarthritis of knee Niesha Mariscal PA-C Plan of Treatment 07/22/2021 - Niesha Mariscal PA-C* M17.0 Bilateral primary osteoarthritis of knee * New Medication:* Synvisc One 48 mg/6ML - vicki knee synvisc #1 KLF/TF Functional Status Description No Information Available Mental Status Description No Information Available Referrals Refer to Reason for Referral Status Appt Date Ruperto Street MD Bilateral knee Synvisc one- No authorization req. Passing to Anu Cardoza for order and appt. DO NOT BOOK APPT UNTIL ON OR AFTER June. Created [facility], [address] [place] [address] [phone]
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
--- OUTSIDE RECORDS SUMMARY | 2021-07-23 03:10 | CCD ---
Author Author [facility] Organization [facility] Address Unknown Phone Unavailable Care Team Providers Care Fried Cake Maker Name Role Phone Justyna Henley PA-C Unavailable Unavailabl e Justyna Henley PA-C Unavailable Unavailabl e Justyna Henley PA-C Unavailable Unavailabl e Fish, Justyna Niesha MPAS, PA-C Unavailable Unavailabl e Fish, [facility], PA-C Unavailable Unavailabl e Fish, [facility], PA-C Unavailable Unavailabl e Fish, [facility], PA-C Unavailable Unavailabl e Fish, [facility], PA-C Unavailable Unavailabl e Fish, [facility], PA-C Unavailable Unavailabl e Fish, [facility], PA-C Unavailable Unavailabl e Fish, [facility], PA-C Unavailable Unavailabl e Fish, [facility], PA-C Unavailable Unavailabl e Fish, [facility], PA-C Unavailable Unavailabl e Fish, [facility], PA-C Unavailable Unavailabl e Fish, [facility], PA-C Unavailable Unavailabl e Fish, [facility], PA-C Unavailable Unavailabl e Fish, [facility], PA-C Unavailable Unavailabl e Fish, [facility], PA-C Unavailable Unavailabl e Fish, [facility], PA-C Unavailable Unavailabl e Fish, [facility], PA-C Unavailable Unavailabl e Fish, [facility], PA-C Unavailable Unavailabl e Fish, [facility], PA-C Unavailable Unavailabl e Fish, [facility], PA-C Unavailable Unavailabl e Fish, [facility], PA-C Unavailable Unavailabl e Fish, [facility], PA-C Unavailable Unavailabl e Fish, [facility], PA-C Unavailable Unavailabl e Fish, [facility], PA-C Unavailable Unavailabl e Fish, [facility], PA-C Unavailable Unavailabl e Fish, [facility], PA-C Unavailable Unavailabl e Fish, [facility], PA-C Unavailable Unavailabl e Fish, [facility], PA-C Unavailable Unavailabl e Fish, [facility], PA-C Unavailable Unavailabl e Fish, [facility], PA-C Unavailable Unavailabl e Fish, [facility], PA-C Unavailable Unavailabl e Fish, [facility], PA-C Unavailable Unavailabl e Fish, [facility], PAPrettyC Unavailable Unavailabl e El-Khally, A Ziad MD Unavailable Unavailable El-Khally, A Ziad MD Unavailable Unavailable El-Khally, A Ziad MD Unavailable Unavailable El-Khally, A Ziad MD Unavailable Unavailable El-Khally, A Ziad MD Unavailable Unavailable El-Khally, A Ziad MD Unavailable Unavailable El-Khally, A Ziad MD Unavailable Unavailable El-Khally, A Ziad MD Unavailable Unavailable El-Khally, A Ziad MD Unavailable Unavailable El-Khally, A Ziad MD Unavailable Unavailable El-Khally, A Ziad MD Unavailable Unavailable El-Khally, A Ziad MD Unavailable Unavailable El-Khally, A Ziad MD Unavailable Unavailable El-Khally, A Ziad MD Unavailable Unavailable El-Khally, A Ziad MD Unavailable Unavailable El-Khally, A Ziad MD Unavailable Unavailable El-Khally, A Ziad MD Unavailable Unavailable El-Khally, A Ziad MD Unavailable Unavailable El-Khally, A Ziad MD Unavailable Unavailable El-Khally, A Ziad MD Unavailable Unavailable El-Khally, A Ziad MD Unavailable Unavailable El-Khally, A Ziad MD Unavailable Unavailable El-Khally, A Ziad MD Unavailable Unavailable El-Khally, A Ziad MD Unavailable Unavailable El-Khally, A Ziad MD Unavailable Unavailable El-Khally, A Ziad MD Unavailable Unavailable El-Khally, A Ziad MD Unavailable Unavailable El-Khally, A Ziad MD Unavailable Unavailable El-Khally, A Ziad MD Unavailable Unavailable El-Khally, A Ziad MD Unavailable Unavailable El-Khally, A Ziad MD Unavailable Unavailable El-Khally, A Ziad MD Unavailable Unavailable El-Khally, A Ziad MD Unavailable Unavailable El-Khally, A Ziad MD Unavailable Unavailable El-Khally, A Ziad MD Unavailable Unavailable El-Khally, A Ziad MD Unavailable Unavailable El-Khally, A Ziad MD Unavailable Unavailable El-Khally, A Ziad MD Unavailable Unavailable El-Khally, A Ziad MD Unavailable Unavailable El-Khally, A Ziad MD Unavailable Unavailable El-Khally, A Ziad MD Unavailable Unavailable El-Khally, A Ziad MD Unavailable Unavailable El-Khally, A Ziad MD Unavailable Unavailable MAT, B [facility]UR[facility] CLINICAL DIRECTOR Unavailable Unavailable MAT, B MELECIO NURSING CLINICAL DIRECTOR Unavailable Unavailable MAT, B MELECIO NURSING CLINICAL DIRECTOR Unavailable Unavailable MAT, B MELECIO NURSING CLINICAL DIRECTOR Unavailable Unavailable MAT, B MELECIO NURSING CLINICAL DIRECTOR Unavailable Unavailable MAT, B MELECIO NURSING CLINICAL DIRECTOR Unavailable Unavailable MAT, B MELECIO NURSING CLINICAL DIRECTOR Unavailable Unavailable MAT, B MELECIO NURSING CLINICAL DIRECTOR Unavailable Unavailable MAT, B MELECIO NURSING CLINICAL DIRECTOR Unavailable Unavailable MAT, B MELECIO NURSING CLINICAL DIRECTOR Unavailable Unavailable MAT, B MELECIO NURSING CLINICAL DIRECTOR Unavailable Unavailable MAT, B MELECIO NURSING CLINICAL DIRECTOR Unavailable Unavailable MAT, B MELECIO NURSING CLINICAL DIRECTOR Unavailable Unavailable MAT, B MELECIO NURSING CLINICAL DIRECTOR Unavailable Unavailable MAT, B MELECIO NURSING CLINICAL DIRECTOR Unavailable Unavailable MAT, B MELECIO NURSING CLINICAL DIRECTOR Unavailable Unavailable MAT, B MELECIO NURSING CLINICAL DIRECTOR Unavailable Unavailable MAT, B MELECIO NURSING CLINICAL DIRECTOR Unavailable Unavailable MAT, B MELECIO NURSING CLINICAL DIRECTOR Unavailable Unavailable MAT, B MELECIO NURSING CLINICAL DIRECTOR Unavailable Unavailable MAT, B MELECIO NURSING CLINICAL DIRECTOR Unavailable Unavailable MAT, B MELECIO NURSING CLINICAL DIRECTOR Unavailable Unavailable MAT, B MELECIO NURSING CLINICAL DIRECTOR Unavailable Unavailable MAT, B MELECIO NURSING CLINICAL DIRECTOR Unavailable Unavailable MAT, B MELECIO NURSING CLINICAL DIRECTOR Unavailable Unavailable MAT, B MELECIO NURSING CLINICAL DIRECTOR Unavailable Unavailable MAT, B MELECIO NURSING CLINICAL DIRECTOR Unavailable Unavailable MAT, B MELECIO NURSING CLINICAL DIRECTOR Unavailable Unavailable MAT, B MELECIO NURSING CLINICAL DIRECTOR Unavailable Unavailable MAT, B MELECIO NURSING CLINICAL DIRECTOR Unavailable Unavailable MAT, B MELECIO NURSING CLINICAL DIRECTOR Unavailable Unavailable MAT, B MELECIO NURSING CLINICAL DIRECTOR Unavailable Unavailable MAT, B MELECIO NURSING CLINICAL DIRECTOR Unavailable Unavailable MAT, B MELECIO NURSING CLINICAL DIRECTOR Unavailable Unavailable MAT, B MELECIO NURSING CLINICAL DIRECTOR Unavailable Unavailable MAT, B MELECIO NURSING CLINICAL DIRECTOR Unavailable Unavailable MAT, B MELECIO NURSING CLINICAL DIRECTOR Unavailable Unavailable MAT, B MELECIO NURSING CLINICAL DIRECTOR Unavailable Unavailable MAT, B MELECIO NURSING CLINICAL DIRECTOR Unavailable Unavailable MAT, B MELECIO NURSING CLINICAL DIRECTOR Unavailable Unavailable MAT, B MELECIO NURSING CLINICAL DIRECTOR Unavailable Unavailable MAT, B MELECIO NURSING CLINICAL DIRECTOR Unavailable Unavailable MAT, B MELECIO NURSING CLINICAL DIRECTOR Unavailable Unavailable MAT, B MELECIO NURSING CLINICAL DIRECTOR Unavailable Unavailable MAT, B MELECIO NURSING CLINICAL DIRECTOR Unavailable Unavailable MAT, B MELECIO NURSING CLINICAL DIRECTOR Unavailable Unavailable MAT, B MELECIO NURSING CLINICAL DIRECTOR Unavailable Unavailable MAT, B MELECIO NURSING CLINICAL DIRECTOR Unavailable Unavailable MAT, B MELECIO NURSING CLINICAL DIRECTOR Unavailable Unavailable MAT, B MELECIO NURSING CLINICAL DIRECTOR Unavailable Unavailable MAT, B MELECIO NURSING CLINICAL DIRECTOR Unavailable Unavailable MAT, B MELECIO NURSING CLINICAL DIRECTOR Unavailable Unavailable MAT, B MELECIO NURSING CLINICAL DIRECTOR Unavailable Unavailable MAT, B MELECIO NURSING CLINICAL DIRECTOR Unavailable Unavailable MAT, B MELECIO NURSING CLINICAL DIRECTOR Unavailable Unavailable MAT, B MELECIO NURSING CLINICAL DIRECTOR Unavailable Unavailable MAT, B MELECIO NURSING CLINICAL DIRECTOR Unavailable Unavailable MAT, B MELECIO NURSING CLINICAL DIRECTOR Unavailable Unavailable MAT, B MELECIO NURSING CLINICAL DIRECTOR Unavailable Unavailable MAT, B MELECIO NURSING CLINICAL DIRECTOR Unavailable Unavailable MAT, B MELECIO NURSING CLINICAL DIRECTOR Unavailable Unavailable MAT, B MELECIO NURSING CLINICAL DIRECTOR Unavailable Unavailable Lizeth Melgar MD Unavailable Unavailable Lizeth Melgar MD Unavailable Unavailable Lizeth Melgar MD Unavailable Unavailable Lizeth Melgar MD Unavailable Unavailable Lizeth Melgar MD Unavailable Unavailable Lizeth Melgar MD Unavailable Unavailable Lizeth Melgar MD Unavailable Unavailable Lizeth Melgar MD Unavailable Unavailable Lizeth Melgar MD Unavailable Unavailable Lizeth Melgar MD Unavailable Unavailable Lizeth Melgar MD Unavailable Unavailable Lizeth Melgar MD Unavailable Unavailable Lizeth Melgar MD Unavailable Unavailable Lizeth Melgar MD Unavailable Unavailable Lizeth Melgar MD Unavailable Unavailable Lizeth Melgar MD Unavailable Unavailable Lizeth Melgar MD Unavailable Unavailable Lizeth Melgar MD Unavailable Unavailable Lizeth Melgar MD Unavailable Unavailable Lizeth Melgar MD Unavailable Unavailable Lizeth Melgar MD Unavailable Unavailable Lizeth Melgar MD Unavailable Unavailable Lizeth Melgar MD Unavailable Unavailable Lizeth Melgar MD Unavailable Unavailable Lizeth Melgar MD Unavailable Unavailable Lizeth Melgar MD Unavailable Unavailable Lizeth Melgar MD Unavailable Unavailable Lizeth Melgar MD Unavailable Unavailable Lizeth Melgar MD Unavailable Unavailable Lizeth Melgar MD Unavailable Unavailable Lizeth Melgar MD Unavailable Unavailable Lizeth Melgar MD Unavailable Unavailable Lizeth Melgar MD Unavailable Unavailable Lizeth Melgar MD Unavailable Unavailable Lizeth Melgar MD Unavailable Unavailable Lizeth Melgar MD Unavailable Unavailable Lizeth Melgar MD Unavailable Unavailable Lizeth Melgar MD Unavailable Unavailable Lizeth Melgar MD Unavailable Unavailable Lizeth Melgar MD Unavailable Unavailable Lizeth Melgar MD Unavailable Unavailable Lzieth Melgar MD Unavailable Unavailable Lizeth Melgar MD Unavailable Unavailable Lizeth Melgar MD Unavailable Unavailable Lizeth Melgar MD Unavailable Unavailable Lizeth Melgar MD Unavailable Unavailable Lizeth Melgar MD Unavailable Unavailable Lizeth Melgar MD Unavailable Unavailable Lizeth Melgar MD Unavailable Unavailable Lizeth Melgar MD Unavailable Unavailable Lizeth Melgar MD Unavailable Unavailable Lizeth Melgar MD Unavailable Unavailable Lizeth Melgar MD Unavailable Unavailable Lizeth Melgar MD Unavailable Unavailable Lizeth Melgar MD Unavailable Unavailable Lizeth Melgar MD Unavailable Unavailable Lizeth Melgar MD Unavailable Unavailable Lizeth Melgar MD Unavailable Unavailable Lizeth Melgar MD Unavailable Unavailable Lizeth Melgar MD Unavailable Unavailable Lizeth Melgar MD Unavailable Unavailable Lizeth Melgar MD Unavailable Unavailable Lizeth Melgar MD Unavailable Unavailable Lizeth Melgar MD Unavailable Unavailable Ivy, M Barratt PA Unavailable Unavailable Ivy, M Barratt PA Unavailable Unavailable Ivy, M Barratt PA Unavailable Unavailable Ivy, M Barratt PA Unavailable Unavailable Ivy, M Barratt PA Unavailable Unavailable Ivy, M Barratt PA Unavailable Unavailable Ivy, M Barratt PA Unavailable Unavailable Ivy, M Barratt PA Unavailable Unavailable Ivy, M Barratt PA Unavailable Unavailable Ivy, M Barratt PA Unavailable Unavailable Ivy, M Barratt PA Unavailable Unavailable Iyv, M Barratt PA Unavailable Unavailable Ivy, M Barratt PA Unavailable Unavailable Ivy, M Barratt PA Unavailable Unavailable Ivy, M Barratt PA Unavailable Unavailable Ivy, M Barratt PA Unavailable Unavailable Ivy, M Barratt PA Unavailable Unavailable Ivy, M Barratt PA Unavailable Unavailable Ivy, M Barratt PA Unavailable Unavailable Ivy, M Barratt PA Unavailable Unavailable Ivy, M Barratt PA Unavailable Unavailable Ivy, M Barratt PA Unavailable Unavailable Ivy, M Barratt PA Unavailable Unavailable Ivy, M Barratt PA Unavailable Unavailable Ivy, M Barratt PA Unavailable Unavailable Ivy, M Barratt PA Unavailable Unavailable Ivy, M Barratt PA Unavailable Unavailable Ivy, M Barratt PA Unavailable Unavailable Ivy, M Barratt PA Unavailable Unavailable Yalobusha, V BRAD PA-C Unavailable Unavailable Yalobusha, V BRAD PA-C Unavailable Unavailable Yalobusha, V BRAD PA-C Unavailable Unavailable Yalobusha, V BRAD PA-C Unavailable Unavailable Yalobusha, V BRAD PA-C Unavailable Unavailable Pankaj, V BRAD PA-C Unavailable Unavailable Pankaj, V BRAD PA-C Unavailable Unavailable Yalobusha, V BRAD PA-C Unavailable Unavailable Pankaj, V BRAD PA-C Unavailable Unavailable Pankaj, V BRAD PA-C Unavailable Unavailable Yalobusha, V BRAD PA-C Unavailable Unavailable Yalobusha, V BRAD PA-C Unavailable Unavailable Yalobusha, V BRAD PA-C Unavailable Unavailable Yalobusha, V BRAD PA-C Unavailable Unavailable Mir Jang MD Unavailable Unavailable Mir Jang MD Unavailable Unavailable Mir Jang MD Unavailable Unavailable Mir Jang MD Unavailable Unavailable Laine, Mir Ma MD Unavailable Unavailable Laine, Mir Ma MD Unavailable Unavailable Laine, Mir Ma MD Unavailable Unavailable Laine, Mir Ma MD Unavailable Unavailable Laine, Mir Ma MD Unavailable Unavailable Laine, Mir Ma MD Unavailable Unavailable Laine, Mir Ma MD Unavailable Unavailable Laine, Mir Ma MD Unavailable Unavailable Laine, Mir Ma MD Unavailable Unavailable Laine, Mir Ma MD Unavailable Unavailable Laine, A Anil WELLINGTON Unavailable Unavailable Laine, A Anil WELLINGTON Unavailable Unavailable Laine, Mir Ma MD Unavailable Unavailable Laine, Mir Ma MD Unavailable Unavailable Laine, Mir Ma MD Unavailable Unavailable Laine, A Anil WELLINGTON Unavailable Unavailable Laine, A Anil WELLINGTON Unavailable Unavailable Laine, A Anil WELLINGTON Unavailable Unavailable Laine, A Anil WELLINGTON Unavailable Unavailable Laine, A Anil WELLINGTON Unavailable Unavailable Laine, A Anil WELLINGTON Unavailable Unavailable Laine, Mir Ma MD Unavailable Unavailable Laine, Mir Ma MD Unavailable Unavailable Laine, A Anil WELLINGTON Unavailable Unavailable Laine, A Anil WELLINGTON Unavailable Unavailable Laine, A Anil WELLINGTON Unavailable Unavailable Laine, A Anil WELLINGTON Unavailable Unavailable Laine, Mir Ma MD Unavailable Unavailable Laine, Mir Ma MD Unavailable Unavailable Laine, Mir Ma MD Unavailable Unavailable Laine, Mir Ma MD Unavailable Unavailable Laine, Mir Ma MD Unavailable Unavailable Laine, Mir Ma MD Unavailable Unavailable Laine, A Anil WELLINGTON Unavailable Unavailable Laine, Mir Ma MD Unavailable Unavailable Laine, Mir Ma MD Unavailable Unavailable Laine, Mir Ma MD Unavailable Unavailable Laine, Mir Ma MD Unavailable Unavailable Laine, Mir Ma MD Unavailable Unavailable Laine, Mir Ma MD Unavailable Unavailable Laine, Mir Ma MD Unavailable Unavailable Laine, Mir Ma MD Unavailable Unavailable Laine, Mir Ma MD Unavailable Unavailable Laine, Mir Ma MD Unavailable Unavailable Laine, Mir Ma MD Unavailable Unavailable Laine, Mir Ma MD Unavailable Unavailable Laine, Mir Ma MD Unavailable Unavailable Laine, Mir Ma MD Unavailable Unavailable Laine, Mir Ma MD Unavailable Unavailable Laine, Mir Ma MD Unavailable Unavailable Laine, Mir Ma MD Unavailable Unavailable Laine, Mir Ma MD Unavailable Unavailable Laine, Mir Ma MD Unavailable Unavailable Laine, Mir Ma MD Unavailable Unavailable Laine, Mir Ma MD Unavailable Unavailable Laine, Mir Ma MD Unavailable Unavailable Laine, Mir Ma MD Unavailable Unavailable Laine, Mir Ma MD Unavailable Unavailable Laine, Mir Ma MD Unavailable Unavailable Laine, Mir Ma MD Unavailable Unavailable Laine, Mir Ma MD Unavailable Unavailable Laine, Mir Ma MD Unavailable Unavailable Laine, Mir Ma MD Unavailable Unavailable Laine, Mir Ma MD Unavailable Unavailable Laine, Mir Ma MD Unavailable Unavailable Laine, Mir Ma MD Unavailable Unavailable Laine, Mir Ma MD Unavailable Unavailable Laine, Mir Ma MD Unavailable Unavailable Laine, Mir Ma MD Unavailable Unavailable Laine, Mir Ma MD Unavailable Unavailable Laine, Mir Ma MD Unavailable Unavailable Laine, Mir Ma MD Unavailable Unavailable Laine, Mir Ma MD Unavailable Unavailable Laine, Mir Ma MD Unavailable Unavailable Laine, Mir Ma MD Unavailable Unavailable Laine, Mir Ma MD Unavailable Unavailable Laine, Mir Ma MD Unavailable Unavailable Laine, Mir Ma MD Unavailable Unavailable Laine, Mir Ma MD Unavailable Unavailable Laine, Mir Ma MD Unavailable Unavailable Laine, Mir Ma MD Unavailable Unavailable Laine, Mir Ma MD Unavailable Unavailable Laine, Mir Ma MD Unavailable Unavailable Laine, Mir Ma MD Unavailable Unavailable Laine, Mir Ma MD Unavailable Unavailable Laine, Mir Ma MD Unavailable Unavailable Laine, Mir Ma MD Unavailable Unavailable Laine, Mir Ma MD Unavailable Unavailable Laine, Mir Ma MD Unavailable Unavailable Laine, Mir Ma MD Unavailable Unavailable Laine, Mir Ma MD Unavailable Unavailable Laine, Mir Ma MD Unavailable Unavailable Laine, Mir Ma MD Unavailable Unavailable Laine, Mir Ma MD Unavailable Unavailable Laine, Mir Ma MD Unavailable Unavailable Laine, Mir Ma MD Unavailable Unavailable Laine, Mir Ma MD Unavailable Unavailable Laine, Mir Ma MD Unavailable Unavailable Laine, Mir Ma MD Unavailable Unavailable Laine, Mir Ma MD Unavailable Unavailable Laine, Mir Ma MD Unavailable Unavailable Laine, Mir Ma MD Unavailable Unavailable Laine, Mir Ma MD Unavailable Unavailable Harish Richard MD Unavailable Unavailable Harish Richard MD Unavailable Unavailable Harish Richard MD Unavailable Unavailable Harish Richard MD Unavailable Unavailable Harish Richard MD Unavailable Unavailable Harish Richard MD Unavailable Unavailable Harish Richard MD Unavailable Unavailable Harish Richard MD Unavailable Unavailable Harish Richard MD Unavailable Unavailable Harish Richard MD Unavailable Unavailable Harish Richard MD Unavailable Unavailable Harish Richard MD Unavailable Unavailable Harish Richard MD Unavailable Unavailable Harish Richard MD Unavailable Unavailable Harish Richard MD Unavailable Unavailable Harish Richard MD Unavailable Unavailable Harish Richard MD Unavailable Unavailable Harish Richard MD Unavailable Unavailable Harish Richard MD Unavailable Unavailable Harish Richard MD Unavailable Unavailable Harish Richard MD Unavailable Unavailable Harish Richard MD Unavailable Unavailable Harish Richard MD Unavailable Unavailable Harish Richard MD Unavailable Unavailable Harish Richard MD Unavailable Unavailable Harish Richard MD Unavailable Unavailable Harish Richard MD Unavailable Unavailable Harish Richard MD Unavailable Unavailable Harish Richard MD Unavailable Unavailable Harish Richard MD Unavailable Unavailable Harish Richard MD Unavailable Unavailable Harish Richard MD Unavailable Unavailable Harish Richard MD Unavailable Unavailable Harish Richard MD Unavailable Unavailable Harish Richard MD Unavailable Unavailable Harish Richard MD Unavailable Unavailable Harish Richard MD Unavailable Unavailable Harish Richard MD Unavailable Unavailable Harish Richard MD Unavailable Unavailable Harish Richard MD Unavailable Unavailable Harish Richard MD Unavailable Unavailable Harish Richard MD Unavailable Unavailable Harish Richard MD Unavailable Unavailable Harish Richard MD Unavailable Unavailable Harish Richard MD Unavailable Unavailable Harish Rihcard MD Unavailable Unavailable Harish Richard MD Unavailable Unavailable Harish Richard MD Unavailable Unavailable Harish Richard MD Unavailable Unavailable Harish Richard MD Unavailable Unavailable Harish Richard MD Unavailable Unavailable Harish Richard MD Unavailable Unavailable Harish Richard MD Unavailable Unavailable Harish Richard MD Unavailable Unavailable Harish Richard MD Unavailable Unavailable Harish Richard MD Unavailable Unavailable Harish Richard MD Unavailable Unavailable Harish Richard MD Unavailable Unavailable Harish Richard MD Unavailable Unavailable Harish Richard MD Unavailable Unavailable Harish Richard MD Unavailable Unavailable Harish Richard MD Unavailable Unavailable Harish Richard MD Unavailable Unavailable Harish Richard MD Unavailable Unavailable Harish Richard MD Unavailable Unavailable Harish Richard MD Unavailable Unavailable Harish Richard MD Unavailable Unavailable Harish Richard MD Unavailable Unavailable Harish Richard MD Unavailable Unavailable Harish Richard MD Unavailable Unavailable Harish Richard MD Unavailable Unavailable Harish Richard MD Unavailable Unavailable Harish Richard MD Unavailable Unavailable Harish Richard MD Unavailable Unavailable Harish Richard MD Unavailable Unavailable Harish Richard MD Unavailable Unavailable Harish Richard MD Unavailable Unavailable Harish Richard MD Unavailable Unavailable Harish Richard MD Unavailable Unavailable Yaz Salinas MD Unavailable Unavailable Yaz Salinas MD Unavailable Unavailable Yaz Salinas MD Unavailable Unavailable Yaz Salinas MD Unavailable Unavailable Yaz Salinas MD Unavailable Unavailable Yaz Salinas MD Unavailable Unavailable Yaz Salinas MD Unavailable Unavailable Yaz Salinas MD Unavailable Unavailable Yaz Salinas MD Unavailable Unavailable Yaz Salinas MD Unavailable Unavailable Yaz Salinas MD Unavailable Unavailable Yaz Salinas MD Unavailable Unavailable Yaz Salinas MD Unavailable Unavailable Yaz Salinas MD Unavailable Unavailable Yaz Salinas MD Unavailable Unavailable Yaz Salinas MD Unavailable Unavailable Yaz Salinas MD Unavailable Unavailable Yaz Salinas MD Unavailable Unavailable Maria Antonia Salinastech Unavailable Unavailable Maria Antonia Salinastech Unavailable Unavailable Maria Antonia Salinastech Unavailable Unavailable Yaz Salinas MD Unavailable Unavailable Yaz Salinas MD Unavailable Unavailable Yaz Salinas MD Unavailable Unavailable Yaz Salinas MD Unavailable Unavailable Maria Antonia Salinastech Unavailable Unavailable Maria Antonia Salinastech Unavailable Unavailable Maria Antonia Salinastech Unavailable Unavailable Yaz Salinas MD Unavailable Unavailable Yaz Salinas MD Unavailable Unavailable Slezka, Vojtech MD Unavailable Unavailable Slezka, Vojtech MD Unavailable Unavailable Slezka, Vojtech MD Unavailable Unavailable Slezka, Vojtech MD Unavailable Unavailable Slezka, Vojtech MD Unavailable Unavailable Slezka, Vojtech MD Unavailable Unavailable Slezka, Vojtech MD Unavailable Unavailable Slezka, Vojtech MD Unavailable Unavailable Slezka, Vojtech MD Unavailable Unavailable Slezka, Vojtech MD Unavailable Unavailable Slezka, Vojtech MD Unavailable Unavailable Slezka, Vojtech MD Unavailable Unavailable Slezka, Vojtech MD Unavailable Unavailable Slezka, Vojtech MD Unavailable Unavailable Slezka, Vojtech MD Unavailable Unavailable Slezka, Vojtech MD Unavailable Unavailable Slezka, Vojtech MD Unavailable Unavailable Slezka, Vojtech MD Unavailable Unavailable Slezka, Vojtech MD Unavailable Unavailable Slezka, Vojtech MD Unavailable Unavailable Slezka, Vojtech MD Unavailable Unavailable Slezka, Vojtech MD Unavailable Unavailable Slezka, Vojtech MD Unavailable Unavailable Slezka, Vojtech MD Unavailable Unavailable Slezka, Vojtech MD Unavailable Unavailable Slezka, Vojtech MD Unavailable Unavailable Slezka, Vojtech MD Unavailable Unavailable Slezka, Vojtech MD Unavailable Unavailable Re-disclosure Warning The records that you are about to access may contain information from federally-assisted alcohol or drug abuse programs. If such information is present, then the following federally mandated warning applies: This information has been disclosed to you from records protected by federal confidentiality rules (42 CFR part 2). The federal rules prohibit you from making any further disclosure of this information unless further disclosure is expressly permitted by the written consent of the person to whom it pertains or as otherwise permitted by 42 CFR part 2. A general authorization for the release of medical or other information is NOT sufficient for this purpose. The Federal rules restrict any use of the information to criminally investigate or prosecute any alcohol or drug abuse patient.The records that you are about to access may contain highly sensitive health information, the redisclosure of which is protected by Article 27-F of the [facility] Public Health law. If you continue you may have access to information: Regarding HIV / AIDS; Provided by facilities licensed or operated by the [facility] Office of Mental Health; or Provided by the [facility] Office for People With Developmental Disabilities. If such information is present, then the following [facility] mandated warning applies: This information has been disclosed to you from confidential records which are protected by state law. State law prohibits you from making any further disclosure of this information without the specific written consent of the person to whom it pertains, or as otherwise permitted by law. Any unauthorized further disclosure in violation of state law may result in a fine or mcfp sentence or both. A general authorization for the release of medical or other information is NOT sufficient authorization for further disc losure. Family History Family Member Name Family Member Gender Family Member Status Date o f Status Description Data Source(s) Unknown Unknown Problem MEDENT ([facility]) Unknown Male Problem MEDENT ([facility]) Unknown Unknown Problem MEDENT ([facility] ) Encounters Encounter Providers Location Date Indications Data Source(s ) Office Visit Attender: Niesha FRANK PA-C Physical Therapy 07/22/2021 01:15:00 PM EDT MEDENT ([facility]) Office Visit, Est Pt., Level 3 PC [address] [place] [address] 04/30/2021 12:00:00 AM EDT eCW1 ([facility] Unknown [address] [facility] [address] 04/29/2021 12:00:00 AM EDT eCW1 ([facility]) Unknown [address] [facility] [address] 04/11/2021 12:00:00 AM EDT eCW1 ([facility]) Outpatient Attender: BRAD Lira PA-C [email or web address] 12:00:00 AM EDT - 04/09/2021 08:25:28 AM EDT [facility] Outpatient [address] [facility] [id number] 04/02/2021 12:00:00 AM EDT eCW1 ([facility]) Unknown [address] [facility] [address] 04/02/2021 12:00:00 AM EDT eCW1 ([facility]) Outpatient Attender: Nereyda Means MDA dmitter: Nereyda Means MDReferrer: Nereyda Means MD [email or web address] 03/28/2021 06:59:00 AM EDT - 03/28/2021 01:08:00 PM EDT [facility] Patient discharged. [place] [address] [facility] [address] 03/19/2021 12:00:00 AM EDT eCW1 ([facility]) Outpatient Attender: BRAD RODGERSSHONDA-SJP.SHONDA 12:00:00 AM EDT - 03/12/2021 09:03:36 AM EDT [facility] Outpatient Attender: MELECIO RIVERO NP Physical Therapy 09:15:00 AM EDT MEDENT ([facility]) Outpatient Referrer: Yaz [email or web address] 04/2021 12:06:40 PM EDT - 03/05/2021 02:05:28 PM EDT [facility] Outpatient Attender: Mildred Richard MD [facility] office [facility] 02/14/2021 01:00:00 PM EDT MEDENT ([facility]) Outpatient Attender: Yaz Salinas MDReferrer: Evin LAMAR.[email or web address] 01/24/2021 02:48:45 PM EDT - 01/24/2021 04:09:53 PM EDT [facility] Outpatient Referrer: Bairon Melgar MD [email or web address].[email or web address] 01/24/20 08:29:04 AM EDT - 01/23/2021 08:29:07 AM EDT [facility] Office Visit Attender: Niesha FRANK PA-C Physical Therapy 01/17/2021 09:45:00 AM EDT MEDENT ([facility]) [place] [address] [facility] [address] 01/15/2021 12:00:00 AM EDT eCW1 ([facility]) Outpatient Attender: Bairon Melgar MDAdmit ter: Bairon Melgar MDReferrer: Bairon Melgar MD [email or web address] 12/25/2020 02:28:12 PM EDT - 01/28/2021 12:03:00 PM EDT [facility] Patient discharged. [place]patient [address] [facility] [address] 12/11/2020 12:00:00 AM EDT eCW1 ([facility]) Outpatient Attender: MELECIO RIVERO NP Physical Therapy 09:30:00 AM EST MEDENT ([facility]) OFFICE OUTPATIENT VISIT 15 MINUTES Attender: Niesha FRANK PA-C Physical Therapy 11/30/2020 01:15:00 PM EST MED[facility] ([facility]) [place] [address] [facility] [address] 11/13/2020 12:00:00 AM EST eCW1 ([facility]) [place] [address] [facility] [address] 11/05/2020 12:00:00 AM EST eCW1 ([facility]) [place] [address] [facility] [address] 10/23/2020 12:00:00 AM EST eCW1 ([facility]) Unknown [address] [facility] [address] 10/16/2020 12:00:00 AM EST eCW1 ([facility]) [place] [address] [facility] [address] 10/09/2020 12:00:00 AM EST eCW1 ([facility]) [place] [address] [facility] [place] [address] 10/01/2020 12:00:00 AM EST eCW1 ([facility]) Unknown [address] [facility] [address] 10/01/2020 12:00:00 AM EST eCW1 ([facility]) Office Visit Attender: Mildred Richard MD Main office - [facility] 09/25/2020 01:45:00 PM EST MED[facility] ([facility]) Unknown [address] [facility] [address] 09/10/2020 12:00:00 AM EST eCW1 ([facility]) Unknown [address] [facility] [address] 09/09/2020 12:00:00 AM EST eCW1 ([facility]) Outpatient Attender: MELECIO RIVERO NP Physical Therapy 12:15:00 PM EST [facility] ([facility]) [place] [address] [facility] [address] 08/21/2020 12:00:00 AM EST eCW1 ([facility]) OFFICE OUTPATIENT VISIT 15 MINUTES Attender: Niesha FRANK PA-C Physical Therapy 08/17/2020 05:00:00 PM EST MED[facility] ([facility]) [place] [address] [facility] [address] 08/06/2020 12:00:00 AM EST eCW1 ([facility]) [place]patient [address] [facility] [address] 07/18/2020 12:00:00 AM EDT eCW1 ([facility]) Unknown [address] [facility] [place] [address] 07/18/2020 12:00:00 AM EDT eCW1 ([facility]) [place] [address] [facility] [place] [address] 07/18/2020 12:00:00 AM EDT eCW1 ([facility]) [place] [address] [facility] [address] 06/27/2020 12:00:00 AM EDT eCW1 ([facility]) Outpatient Attender: Lorenzo BELLAMY Physical Therapy 01:00:00 PM EDT MEDENT ([facility]) Outpatient Attender: MELECIO RIVERO NP Physical Therapy 02:15:00 PM EDT MEDENT ([facility]) Immunizations Vaccine Date Status Description Data Source(s) COVID-19 VACCINE Moderna 11/15/2020 12:00:00 AM EST completed [place] Vaccine Series Complete: YESThis Data wa s Submitted to [facility]. 11/15/2020 12:00:00 AM EST completed <td I D="[id number]">Covid-19 (Moderna)</td><td>11/15/2020, 10/18/2020</td><td></td> [facility] COVID-19 VACCINE Moderna 10/18/2020 12:00:00 AM EST completed [place] Vaccine Series Complete: NOThis Data was Submitted to [facility]. 10/18/2020 12:00:00 AM EST completed <td I D="[id number]">Covid-19 (Moderna)</td><td>11/15/2020, 10/18/2020</td><td></td> [facility] influenza, recombinant, quadrIvalent,injectable, prese rvative free 06/27/2020 04:07:00 PM EDT completed eCW1 ([facility]) influenza, recombinant, quadrIvalent,injectable, prese rvative free 06/27/2020 04:07:00 PM EDT completed eCW1 ([facility]) influenza, recombinant, quadrIvalent,injectable, prese rvative free 06/27/2020 04:07:00 PM EDT completed eCW1 ([facility]) influenza, recombinant, quadrIvalent,injectable, prese rvative free 06/27/2020 04:07:00 PM EDT completed eCW1 ([facility]) influenza, recombinant, quadrIvalent,injectable, prese rvative free 06/27/2020 04:07:00 PM EDT completed eCW1 ([facility]) influenza, recombinant, quadrIvalent,injectable, prese rvative free 06/27/2020 04:07:00 PM EDT completed eCW1 ([facility]) influenza, recombinant, quadrIvalent,injectable, prese rvative free 06/27/2020 04:07:00 PM EDT completed eCW1 ([facility]) influenza, recombinant, quadrIvalent,injectable, prese rvative free 06/27/2020 04:07:00 PM EDT completed eCW1 ([facility]) influenza, recombinant, quadrIvalent,injectable, prese rvative free 06/27/2020 04:07:00 PM EDT completed eCW1 ([facility]) influenza, recombinant, quadrIvalent,injectable, prese rvative free 06/27/2020 04:07:00 PM EDT completed eCW1 ([facility]) influenza, recombinant, quadrIvalent,injectable, prese rvative free 06/27/2020 04:07:00 PM EDT completed eCW1 ([facility]) influenza, recombinant, quadrIvalent,injectable, prese rvative free 06/27/2020 04:07:00 PM EDT completed eCW1 ([facility]) influenza, recombinant, quadrIvalent,injectable, prese rvative free 06/27/2020 04:07:00 PM EDT completed eCW1 ([facility]) influenza, recombinant, quadrIvalent,injectable, prese rvative free 06/27/2020 04:07:00 PM EDT completed eCW1 ([facility]) influenza, recombinant, quadrIvalent,injectable, prese rvative free 06/27/2020 04:07:00 PM EDT completed eCW1 ([facility]) influenza, recombinant, quadrIvalent,injectable, prese rvative free 06/27/2020 04:07:00 PM EDT completed eCW1 ([facility]) influenza, recombinant, quadrIvalent,injectable, prese rvative free 06/27/2020 04:07:00 PM EDT completed eCW1 ([facility]) influenza, recombinant, quadrIvalent,injectable, prese rvative free 06/27/2020 04:07:00 PM EDT completed eCW1 ([facility]) influenza, recombinant, quadrIvalent,injectable, prese rvative free 06/27/2020 04:07:00 PM EDT completed eCW1 ([facility]) influenza, recombinant, quadrIvalent,injectable, prese rvative free 06/27/2020 04:07:00 PM EDT completed eCW1 ([facility]) influenza, recombinant, quadrIvalent,injectable, prese rvative free 06/27/2020 04:07:00 PM EDT completed eCW1 ([facility]) influenza, recombinant, quadrIvalent,injectable, prese rvative free 06/27/2020 04:07:00 PM EDT completed eCW1 ([facility]) influenza, recombinant, quadrIvalent,injectable, prese rvative free 06/27/2020 04:07:00 PM EDT completed eCW1 ([facility]) Pneumococcal conjugate PCV 06/27/2020 02:09:00 PM EDT completed eCW1 ([facility]) Pneumococcal conjugate PCV 06/27/2020 02:09:00 PM EDT completed eCW1 ([facility]) Pneumococcal conjugate PCV 06/27/2020 02:09:00 PM EDT completed eCW1 ([facility]) Pneumococcal conjugate PCV 06/27/2020 02:09:00 PM EDT completed eCW1 ([facility]) Pneumococcal conjugate PCV 06/27/2020 02:09:00 PM EDT completed eCW1 ([facility]) Pneumococcal conjugate PCV 06/27/2020 02:09:00 PM EDT completed eCW1 ([facility]) Pneumococcal conjugate PCV 06/27/2020 02:09:00 PM EDT completed eCW1 ([facility]) Pneumococcal conjugate PCV 06/27/2020 02:09:00 PM EDT completed eCW1 ([facility]) Pneumococcal conjugate PCV 06/27/2020 02:09:00 PM EDT completed eCW1 ([facility]) Pneumococcal conjugate PCV 06/27/2020 02:09:00 PM EDT completed eCW1 ([facility]) Pneumococcal conjugate PCV 13 06/27/2020 02:09:00 PM EDT completed eCW1 ([facility]) Pneumococcal conjugate PCV 13 06/27/2020 02:09:00 PM EDT completed eCW1 ([facility]) Pneumococcal conjugate PCV 13 06/27/2020 02:09:00 PM EDT completed eCW1 ([facility]) Pneumococcal conjugate PCV 13 06/27/2020 02:09:00 PM EDT completed eCW1 ([facility]) Pneumococcal conjugate PCV 13 06/27/2020 02:09:00 PM EDT completed eCW1 ([facility]) Pneumococcal conjugate PCV 13 06/27/2020 02:09:00 PM EDT completed eCW1 ([facility]) Pneumococcal conjugate PCV 13 06/27/2020 02:09:00 PM EDT completed eCW1 ([facility]) Pneumococcal conjugate PCV 13 06/27/2020 02:09:00 PM EDT completed eCW1 ([facility]) Pneumococcal conjugate PCV 13 06/27/2020 02:09:00 PM EDT completed eCW1 ([facility]) Pneumococcal conjugate PCV 13 06/27/2020 02:09:00 PM EDT completed eCW1 ([facility]) Pneumococcal conjugate PCV 13 06/27/2020 02:09:00 PM EDT completed eCW1 ([facility]) Pneumococcal conjugate PCV 13 06/27/2020 02:09:00 PM EDT completed eCW1 ([facility]) Pneumococcal conjugate PCV 13 06/27/2020 02:09:00 PM EDT completed eCW1 ([facility]) Medications Medication Brand Name Start Date Product Form Dose Route Admi nistrative Instructions Pharmacy Instructions Status Indications Reaction Description Data Source(s) 6 ML HYLAN G-F 20 8 MG/ML Prefilled Syringe [Synvisc] Synvis c One 07/22/2021 12:00:00 AM EDT active M EDENT ([facility]) 29 gauge x 1/2" 07/13/2021 12:00:00 AM EDT needle 600 USE 6 TIMES DAILY USE 6 TIMES DAILY SOLD: 07/14/2021 [facility] 200 unit/mL (3 mL) 07/10/2021 12:00:00 AM EDT insulin pen 18 INJECT 150 UNITS UNDER THE SKIN EVERY MORNING INJECT 150 UNITS UNDER THE SKIN EVERY MO RNING SOLD: 07/10/2021 [facility] 80 mg 06/28/2021 12:00:00 AM EDT tablet 90 TAKE ONE TABLET BY MOUTH EVERY EVENING TAKE ONE TABLET BY MOUTH EVERY EVENING SOLD: 06/28/2021 [facility] 600 mg 06/06/2021 12:00:00 AM EDT tablet 270 TAKE ONE TABLET BY MOUTH THREE TIMES A DAY MAXIMUM DAILY DOSE = 3 TABLETS TAKE ONE TABLET BY MOUTH THREE TIMES A DAY MAXIMUM DAILY DOSE = 3 TABLETS SOLD: 06/06/2021 [facility] DIAPER,BRIEF,ADULT, DISPOSABLE 06/06/2021 12:00:00 AM EDT mi sc 90 USE DIRECTED THREE TIMES A DAY USE DIRECTED THREE TIMES A DAY SOLD: 06/06/2021 [facility] glimepiride 4 MG Oral Tablet GLIMEPIRIDE 05/27/2021 12:00:00 AM EDT t ablet 180 TAKE ONE TABLET BY MOUTH TWICE A DAY TAKE ONE TABLET BY MOUT H TWICE A DAY SOLD: 05/27/2021 [facility] 300 mg 05/16/2021 12:00:00 AM EDT tablet 90 TAKE ONE TABLET BY MOUTH ONCE DAILY TAKE ONE TABLET BY MOUTH ONCE DAILY SOLD: 05/16/2021 [facility] carvedilol 25 MG Oral Tablet CARVEDILOL 05/01/2021 12:00:00 AM EDT tab let 60 TAKE 1 TABLET BY MOUTH TWICE A DAY TAKE 1 TABLET BY MOUTH TWICE A DAY SOLD: 06/26/2021 [facility] carvedilol 25 MG Oral Tablet CARVEDILOL 05/01/2021 12:00:00 AM EDT tab let 60 TAKE 1 TABLET BY MOUTH TWICE A DAY TAKE 1 TABLET BY MOUTH TWICE A DAY SOLD: 05/01/2021 [facility] carvedilol 25 MG Oral Tablet CARVEDILOL 05/01/2021 12:00:00 AM EDT tab let 60 TAKE 1 TABLET BY MOUTH TWICE A DAY TAKE 1 TABLET BY MOUTH TWICE A DAY SOLD: 05/29/2021 [facility] 1 mg 04/29/2021 12:00:00 AM EDT tablet 90 TAKE ONE TABLET BY MOUTH 1 TO 3 HOURS BEFORE BEDTIME TAKE ONE TABLET BY MOUTH 1 TO 3 HOURS BEFORE BEDTIME S OLD: 04/29/2021 [facility] 250 mg 04/11/2021 12:00:00 AM EDT tablet,delayed release (DR/EC) 60 TAKE ONE TABLET BY MOUTH AT BEDTIME FOR ONE WEEK, THEN TWO TABLETS AT BEDTIME TAKE ONE TABLET BY MOUTH AT BEDTIME FOR ONE WEEK, THEN TWO TABLETS AT BEDTIME SOLD: 06/16/2021 [facility] 250 mg 04/11/2021 12:00:00 AM EDT tablet,delayed release (DR/EC) 60 TAKE ONE TABLET BY MOUTH AT BEDTIME FOR ONE WEEK, THEN TWO TABLETS AT BEDTIME TAKE ONE TABLET BY MOUTH AT BEDTIME FOR ONE WEEK, THEN TWO TABLETS AT BEDTIME SOLD: 05/15/2021 [facility] 250 mg 04/11/2021 12:00:00 AM EDT tablet,delayed release (DR/EC) 60 TAKE ONE TABLET BY MOUTH AT BEDTIME FOR ONE WEEK, THEN TWO TABLETS AT BEDTIME TAKE ONE TABLET BY MOUTH AT BEDTIME FOR ONE WEEK, THEN TWO TABLETS AT BEDTIME SOLD: 07/18/2021 [facility] 250 mg 04/11/2021 12:00:00 AM EDT tablet,delayed release (DR/EC) 60 TAKE ONE TABLET BY MOUTH AT BEDTIME FOR ONE WEEK, THEN TWO TABLETS AT BEDTIME TAKE ONE TABLET BY MOUTH AT BEDTIME FOR ONE WEEK, THEN TWO TABLETS AT BEDTIME SOLD: 04/11/2021 [facility] 20 mg 04/03/2021 12:00:00 AM EDT tablet 13 TAKE 3 TABLETS BY MOUTH DAILY FOR 2 DAYS THEN 2 TABLETS DAILY FOR 2 DAYS THEN 1 TABLET DAILY FOR 2 DAYS THEN 1/2 TABLET DAILY FOR 2 DAYS THEN STOP TAKE 3 TABLETS BY MOUTH DAILY FOR 2 DAYS THEN 2 TABLETS DAILY FOR 2 DAYS THEN 1 TABLET DAILY FOR 2 DAYS THEN 1/2 TABLET DAILY FOR 2 DAYS THEN STOP SOLD: 04/03/2021 [facility] Prednisone 20 MG Oral Tablet Prednisone 04/03/2021 12:00:00 AM EDT active MEDENT ([facility] ) Flonase Allergy Relief 50 MCG/ACT Flonase Allergy Relief 50 MCG/ACT 04/02/2021 12:00:00 AM EDT active Flonase Allergy Relief 50 MCG/ACT eCW1 ([facility]) Flonase Allergy Relief 50 MCG/ACT Flonase Allergy Relief 50 MCG/ACT 04/02/2021 12:00:00 AM EDT active Flonase Allergy Relief 50 MCG/ACT eCW1 ([facility]) Flonase Allergy Relief 50 MCG/ACT Flonase Allergy Relief 50 MCG/ACT 04/02/2021 12:00:00 AM EDT active Flonase Allergy Relief 50 MCG/ACT eCW1 ([facility]) 50 mcg/actuation 04/02/2021 12:00:00 AM EDT spray,suspension 16 SPRAY TWO SPRAYS IN EACH NOSTRIL EVERY DAY SPRAY TWO SPRAYS IN EACH NOSTRIL EVERY DAY SOLD: 04/02/2021 [facility] Fluticasone propionate 0.05 MG/ACTUAT Metered Dose [place] 50 mcg/actuation FLUTICASONE PROPIONATE 04/02/2021 12:00:00 AM EDT spray,suspension 16 SPRAY TWO SPRAYS IN EACH NOSTRIL EVERY DAY SPRAY TWO SPRAYS IN EACH NOSTRIL EVERY DAY SOLD: 05/15/2021 [facility] 50 mg 04/02/2021 12:00:00 AM EDT tablet 30 TAKE ONE TABLET BY MOUTH DAILY AT BEDTIME TAKE ONE TABLET BY MOUTH DAILY AT BEDTIME SOLD: 05/15/2021 [facility] fluticasone (FLONASE) 50 MCG/ACT nasal spray 0457-0192-99 04/02/2021 12:00:00 AM EDT active SPRAY TWO SPRAYS IN EACH NOSTRIL EVERY DAY [facility] Fluticasone propionate 0.05 MG/ACTUAT Metered Dose [place] [facility] [place] 50 mcg/actuation FLUTICASONE PROPIONATE 04/02/2021 12:00:00 AM EDT spray,suspension 16 SPRAY TWO SPRAYS IN EACH NOSTRIL EVERY DAY SPRAY TWO SPRAYS IN EACH NOSTRIL EVERY DAY SOLD: 06/12/2021 [facility] Flonase Allergy Relief 50 MCG/ACT Flonase Allergy Relief 50 MCG/ACT 04/02/2021 12:00:00 AM EDT active Flonase Allergy Relief 50 MCG/ACT eCW1 ([facility]) Flonase Allergy Relief 50 MCG/ACT Flonase Allergy Relief 50 MCG/ACT 04/02/2021 12:00:00 AM EDT active Flonase Allergy Relief 50 MCG/ACT eCW1 ([facility]) Fluticasone propionate 0.05 MG/ACTUAT Metered Dose [facility] [place] 50 mcg/actuation FLUTICASONE PROPIONATE 04/02/2021 12:00:00 AM EDT spray,suspension 16 SPRAY TWO SPRAYS IN EACH NOSTRIL EVERY DAY SPRAY TWO SPRAYS IN EACH NOSTRIL EVERY DAY SOLD: 07/10/2021 [facility] 50 mg 04/02/2021 12:00:00 AM EDT tablet 30 TAKE ONE TABLET BY MOUTH DAILY AT BEDTIME TAKE ONE TABLET BY MOUTH DAILY AT BEDTIME SOLD: 04/02/2021 [facility] Amitriptyline Hydrochloride 10 MG Oral Tablet Amitriptyline HCL 03/26/2021 12:00:00 AM EDT completed MEDENT ([facility] ) 0.005 % 03/26/2021 12:00:00 AM EDT drops 7 INSTILL ONE DROP INTO BOTH EYES EVERY NIGHT INSTILL ONE DROP INTO BOTH EYES EVERY NIGHT SOLD: 06/12/2021 [facility] 0.005 % 03/26/2021 12:00:00 AM EDT drops 7 INSTILL ONE DROP INTO BOTH EYES EVERY NIGHT INSTILL ONE DROP INTO BOTH EYES EVERY NIGHT SOLD: 03/29/2021 [facility] 30 mg 03/22/2021 12:00:00 AM EDT tablet 20 TAKE 1 TABLET BY MOUTH 5 TIMES PER WEEK, THURSDAY THROUGH THURSDAY TAKE 1 TABLET BY MOUTH 5 TIMES PER WEEK, Thursday SOLD: 06/09/2021 [facility] 30 mg 03/22/2021 12:00:00 AM EDT tablet 20 TAKE 1 TABLET BY MOUTH 5 TIMES PER WEEK, THURSDAY THROUGH THURSDAY TAKE 1 TABLET BY MOUTH 5 TIMES PER WEEK, Thursday SOLD: 03/22/2021 [facility] 30 mg 03/22/2021 12:00:00 AM EDT tablet 20 TAKE 1 TABLET BY MOUTH 5 TIMES PER WEEK, THURSDAY THROUGH THURSDAY TAKE 1 TABLET BY MOUTH 5 TIMES PER WEEK, Thursday SOLD: 04/17/2021 [facility] 30 mg 03/22/2021 12:00:00 AM EDT tablet 20 TAKE 1 TABLET BY MOUTH 5 TIMES PER WEEK, THURSDAY THROUGH THURSDAY TAKE 1 TABLET BY MOUTH 5 TIMES PER WEEK, THURSDAY THROUGH THURSDAY SOLD: 07/10/2021 [facility] 30 mg 03/22/2021 12:00:00 AM EDT tablet 20 TAKE 1 TABLET BY MOUTH 5 TIMES PER WEEK, THURSDAY THROUGH THURSDAY TAKE 1 TABLET BY MOUTH 5 TIMES PER WEEK, THURSDAY THROUGH THURSDAY SOLD: 05/13/2021 [facility] Amitriptyline Hydrochloride 10 MG Oral Tablet Amitript yline HCl 10 MG Amitriptyline HCl 10 MG 03/19/2021 12:00:00 AM EDT 1.0 {tablet_at_b edtime} active Amitriptyline HCl 10 MG e 1 ([facility]) 10 mg 03/19/2021 12:00:00 AM EDT tablet 30 TAKE ONE TABLET BY MOUTH EVERY DAY AT BEDTIME TAKE ONE TABLET BY MOUTH EVERY DAY AT BEDTIME SOLD: 03/20/2021 [facility] 80 mg 03/16/2021 12:00:00 AM EDT tablet 90 TAKE ONE TABLET BY MOUTH EVERY EVENING TAKE ONE TABLET BY MOUTH EVERY EVENING SOLD: 03/16/2021 [facility] clopidogrel 75 MG Oral Tablet clopidogrel (PLAVIX) 75 MG tablet clopidogrel (PLAVIX) 75 MG tablet 03/12/2021 12:00:00 AM EDT 75 mg Oral active Take 1 tablet (75 mg total) by mouth See Admin Instructions Please take four 75mg tabs of Plavix (300mg total) the night before the procedure. [facility] 75 mg 03/12/2021 12:00:00 AM EDT tablet 4 TAKE 4 TABLETS BY MOUTH THE NIGHT BEFORE YOUR PROCEDURE TAKE 4 TABLETS BY MOUTH THE NIGHT BEFORE YOUR PROCEDUR E SOLD: 03/12/2021 [facility] 600 mg 03/08/2021 12:00:00 AM EDT tablet 270 TAKE ONE TABLET BY MOUTH THREE TIMES A DAY TAKE ONE TABLET BY MOUTH THREE TIMES A DAY SOLD: 03/08/2021 [facility] 20 mg 02/11/2021 12:00:00 AM EDT tablet 10 TAKE TWO TABLETS(40MG) BY MOUTH ONCE A DAY FOR 5 DAYS TAKE TWO TABLETS(40MG) BY MOUTH ONCE A DAY FOR 5 DAYS SOLD: 02/11/2021 [facility] Famotidine 20 MG Oral Tablet FAMOTIDINE 02/11/2021 12:00:00 AM EDT tab let 20 TAKE ONE TABLET BY MOUTH TWICE A DAY FOR PAIN TAKE ONE TABLET BY MOUTH TWICE A DAY FOR PAIN SOLD: 02/11/2021 [facility] 300 mg 02/04/2021 12:00:00 AM EDT tablet 90 TAKE ONE TABLET BY MOUTH EVERY DAY TAKE ONE TABLET BY MOUTH EVERY DAY SOLD: 02/05/2021 [facility] 1 mg 01/25/2021 12:00:00 AM EDT tablet 90 TAKE 1 TABLET BY MOUTH 1 TO 3 HOURS BEFORE BEDTIME TAKE 1 TABLET BY MOUTH 1 TO 3 HOURS BEFORE BEDTIME [facility] 0.6 mg/0.1 mL (18 mg/3 mL) 01/24/2021 12:00:00 AM EDT pen in jector 27 INJECT 1.8MG UNDER SKIN ONCE DAILY MAX 1.8MG/DAY INJECT 1.8MG UNDER SKIN ONCE DAILY MAX 1.8MG/DAY SOLD: 05/15/2021 [facility] 0.6 mg/0.1 mL (18 mg/3 mL) 01/24/2021 12:00:00 AM EDT pen in jector 27 INJECT 1.8MG UNDER SKIN ONCE DAILY MAX 1.8MG/DAY INJECT 1.8MG UNDER SKIN ONCE DAILY MAX 1.8MG/DAY SOLD: 01/24/2021 [facility] 2 ML HYLAN G-F 20 8 MG/ML Prefilled Syringe [Synvisc] Synvis c 01/17/2021 12:00:00 AM EDT active M EDENT ([facility]) 25 mcg (1,000 unit) 01/15/2021 12:00:00 AM EDT tablet 90 TAKE 1 TABLET BY MOUTH DAILY TAKE 1 TABLET BY MOUTH DAILY SOLD: 01/15/2021 [facility] Cholecalciferol 1000 UNT Oral Tablet cho lecalciferol (VITAMIN D3) 25 MCG (1000 UT) tablet cholecalciferol (VITAMIN D3) 25 MCG (1000 UT) tablet 0 01/15/2021 12:00:00 AM EDT 1000 U Oral active Take 1,0 00 Units by mouth daily [facility] latanoprost 0.05 MG/ML Ophthalmic Soluti on latanoprost (XALATAN) 0.005 % ophthalmic solution latanoprost (XALATAN) 0.005 % ophthalmic solution 12/27 12:00:00 AM EDT active INSTILL ONE DROP INTO BOTH EYES EVERY NIGHT [facility] carvedilol 25 MG Oral Tablet carvedilol (COREG) 25 MG tablet carvedilol (COREG) 25 MG tablet 01/04/2021 12:00:00 AM EDT 25 mg Oral activ e Take 25 mg by mouth 2 (two) times a day [facility] Magnesium Oxide 400 MG Oral Tablet magnesium oxide (MA G-OX) 400 MG tablet magnesium oxide (MAG-OX) 400 MG tablet 01/03/2021 12:00:00 AM EDT active TAKE TWO TABLETS BY MOUTH TWICE A DAY [facility] 100 unit/mL 01/02/2021 12:00:00 AM EDT insulin pen 45 INJECT UNDER SKIN DIRECTED PER SLIDING SCALE MAX 53UNITS/DAY INJECT UNDER SKIN DIRECTED PER SLIDING SCALE MAX 53UNITS/DAY SOLD: 01/02/2021 [facility] cinacalcet 30 MG Oral Tablet cinacalcet (SENSIPAR) 30 MG tablet cinacalcet (SENSIPAR) 30 MG tablet 01/02/2021 12:00:00 AM EDT active TAKE 1 TABLET BY MOUTH 5 TIMES PER WEEK THURSDAY THROUGH THURSDAY [facility] 3 ML Insulin Lispro 100 UNT/ML Pen Injec tor [Humalog] HumaLOG KwikPen 100 UNIT/ML SOPN HumaLOG KwikPen 100 UNIT/ML SOPN 01/02/2021 12:00:00 AM EDT active INJECT UNDER SKIN DIRE CTED PER SLIDING SCALE MAX 53UNITS/DAY [facility] 100 unit/mL 01/02/2021 12:00:00 AM EDT insulin pen 45 INJECT UNDER SKIN DIRECTED PER SLIDING SCALE MAX 53UNITS/DAY INJECT UNDER SKIN DIRECTED PER SLIDING SCALE MAX 53UNITS/DAY SOLD: 05/15/2021 [facility] glimepiride 4 MG Oral Tablet GLIMEPIRIDE 12/03/2020 12:00:00 AM EST t ablet 180 TAKE ONE TABLET BY MOUTH TWICE A DAY TAKE ONE TABLET BY MOUT H TWICE A DAY SOLD: 03/01/2021 [facility] glimepiride 4 MG Oral Tablet glimepiride (AMARYL) 4 MG tablet glimepiride (AMARYL) 4 MG tablet 12/03/2020 12:00:00 AM EST 4 mg Oral active Take 4 mg by mouth 2 (two) times a day [facility] glimepiride 4 MG Oral Tablet GLIMEPIRIDE 12/03/2020 12:00:00 AM EST t ablet 180 TAKE ONE TABLET BY MOUTH TWICE A DAY TAKE ONE TABLET BY MOUT H TWICE A DAY SOLD: 12/03/2020 [facility] 80 mg 12/01/2020 12:00:00 AM EST tablet 90 TAKE ONE TABLET BY MOUTH EVERY DAY IN THE EVENING TAKE ONE TABLET BY MOUTH EVERY DAY IN THE EVENING SOLD : 12/01/2020 [facility] Simvastatin 80 MG Oral Tablet simvastatin (ZOCOR) 80 M G tablet simvastatin (ZOCOR) 80 MG tablet 12/01/2020 12:00:00 AM EST 80 mg Oral active Take 80 mg by mouth [facility] gabapentin 600 MG Oral Tablet gabapentin (NEURONTIN) 6 00 MG tablet gabapentin (NEURONTIN) 600 MG tablet 11/20/2020 12:00:00 AM EST 600 mg Oral active Take 600 mg by mouth 3 (three) times a day [facility] 600 mg 11/20/2020 12:00:00 AM EST tablet 270 TAKE ONE TABLET BY MOUTH THREE TIMES A DAY TAKE ONE TABLET BY MOUTH THREE TIMES A DAY SOLD: 11/20/2020 [facility] 3 ML liraglutide 6 MG/ML Pen Injector [Victoza] Victoz a 18 MG/3ML SOPN Victoza 18 MG/3ML SOPN 11/17/2020 12:00:00 AM EST act vero INJECT 1.8MG UNDER SKIN ONCE DAILY [facility] 1,250 mcg (50,000 unit) 11/10/2020 12:00:00 AM EST capsule 6 TAKE 1 CAPSULE BY MOUTH EVERY WEEK FOR 6 WEEKS TAKE 1 CAPSULE BY MOUTH EVERY WEEK FOR 6 WEEKS SOLD: 11/11/2020 [facility] Ergocalciferol 85176 UNT Oral Capsule vi tamin D, Ergocalciferol, 1.25 MG (14449 UT) CAPS vitamin D, Ergocalciferol, 1.25 MG (06448 UT) CAPS 12:00:00 AM EST aborted TAKE 1 CAPSULE B Y MOUTH EVERY WEEK FOR 6 WEEKS [facility] carvedilol 25 MG Oral Tablet CARVEDILOL 11/08/2020 12:00:00 AM EST tab let 60 TAKE 1 TABLET BY MOUTH TWICE A DAY TAKE 1 TABLET BY MOUTH TWICE A DAY SOLD: 12/07/2020 [facility] carvedilol 25 MG Oral Tablet CARVEDILOL 11/08/2020 12:00:00 AM EST tab let 60 TAKE 1 TABLET BY MOUTH TWICE A DAY TAKE 1 TABLET BY MOUTH TWICE A DAY SOLD: 04/03/2021 [facility] carvedilol 25 MG Oral Tablet CARVEDILOL 11/08/2020 12:00:00 AM EST tab let 60 TAKE 1 TABLET BY MOUTH TWICE A DAY TAKE 1 TABLET BY MOUTH TWICE A DAY SOLD: 03/07/2021 [facility] carvedilol 25 MG Oral Tablet CARVEDILOL 11/08/2020 12:00:00 AM EST tab let 60 TAKE 1 TABLET BY MOUTH TWICE A DAY TAKE 1 TABLET BY MOUTH TWICE A DAY SOLD: 11/08/2020 [facility] carvedilol 25 MG Oral Tablet CARVEDILOL 11/08/2020 12:00:00 AM EST tab let 60 TAKE 1 TABLET BY MOUTH TWICE A DAY TAKE 1 TABLET BY MOUTH TWICE A DAY SOLD: 02/05/2021 [facility] carvedilol 25 MG Oral Tablet CARVEDILOL 11/08/2020 12:00:00 AM EST tab let 60 TAKE 1 TABLET BY MOUTH TWICE A DAY TAKE 1 TABLET BY MOUTH TWICE A DAY SOLD: 01/04/2021 [facility] 100 unit/mL 10/31/2020 12:00:00 AM EST insulin pen 45 INJECT UNDER THE SKIN DIRECTED PER SLIDING SCALE MAXIMUM DAILY DOSE = 53 UNITS INJECT UNDER THE SKIN DIRECTED PER SLIDING SCALE MAXIMUM DAILY DOSE = 53 UNITS SOLD: 10/31/2020 [facility] 30 mg 10/16/2020 12:00:00 AM EST tablet 20 TAKE 1 TABLET BY MOUTH 5 TIMES PER WEEK, THURSDAY THROUGH THURSDAY TAKE 1 TABLET BY MOUTH 5 TIMES PER WEEK, Thursday SOLD: 12/07/2020 [facility] 10 mg 10/16/2020 12:00:00 AM EST tablet 90 TAKE 1 TABLET BY MOUTH ONCE A DAY TAKE 1 TABLET BY MOUTH ONCE A DAY SOLD: 10/16/2020 [facility] 17 gram/dose 10/16/2020 12:00:00 AM EST powder 1530 MIX 17 GRAMS (1 CAPFUL) IN 1 GLASS OF WATER & DRINK DAILY MIX 17 GRAMS (1 CAPFUL) IN 1 GLASS OF WA TER & DRINK DAILY SOLD: 10/16/2020 [facility] 30 mg 10/16/2020 12:00:00 AM EST tablet 20 TAKE 1 TABLET BY MOUTH 5 TIMES PER WEEK, THURSDAY THROUGH THURSDAY TAKE 1 TABLET BY MOUTH 5 TIMES PER WEEK, Thursday SOLD: 11/11/2020 [facility] 30 mg 10/16/2020 12:00:00 AM EST tablet 20 TAKE 1 TABLET BY MOUTH 5 TIMES PER WEEK, THURSDAY THROUGH THURSDAY TAKE 1 TABLET BY MOUTH 5 TIMES PER WEEK, Thursday SOLD: 10/16/2020 [facility] carvedilol 25 MG Oral Tablet CARVEDILOL 10/16/2020 12:00:00 AM EST tab let 60 TAKE ONE TABLET BY MOUTH TWICE A DAY TAKE ONE TABLET BY MOUTH TWICE A DAY SOLD: 10/16/2020 [facility] 30 mg 10/16/2020 12:00:00 AM EST tablet 20 TAKE 1 TABLET BY MOUTH 5 TIMES PER WEEK, THURSDAY THROUGH THURSDAY TAKE 1 TABLET BY MOUTH 5 TIMES PER WEEK, THURSDAY THROUGH THURSDAY SOLD: 01/28/2021 [facility] 400 mg (241.3 mg magnesium) 10/16/2020 12:00:00 AM EST table t 120 TAKE TWO TABLETS BY MOUTH TWICE A DAY TAKE TWO TABLETS BY MOUTH TWICE A DAY SOLD: 01/03/2021 [facility] Famotidine 40 MG Oral Tablet FAMOTIDINE 10/16/2020 12:00:00 AM EST tab let 90 TAKE ONE TABLET BY MOUTH EVERY DAY TAKE ONE TABLET BY MOUTH EVERY DAY SOLD: 10/16/2020 [facility] 400 mg (241.3 mg magnesium) 10/16/2020 12:00:00 AM EST table t 120 TAKE TWO TABLETS BY MOUTH TWICE A DAY TAKE TWO TABLETS BY MOUTH TWICE A DAY SOLD: 10/16/2020 [facility] 30 mg 10/16/2020 12:00:00 AM EST tablet 20 TAKE 1 TABLET BY MOUTH 5 TIMES PER WEEK, THURSDAY THROUGH THURSDAY TAKE 1 TABLET BY MOUTH 5 TIMES PER WEEK, Thursday SOLD: 01/02/2021 [facility] 30 mg 10/16/2020 12:00:00 AM EST tablet 20 TAKE 1 TABLET BY MOUTH 5 TIMES PER WEEK, THURSDAY THROUGH THURSDAY TAKE 1 TABLET BY MOUTH 5 TIMES PER WEEK, THURSDAY THROUGH THURSDAY SOLD: 02/25/2021 [facility] 200 unit/mL (3 mL) 10/15/2020 12:00:00 AM EST insulin pen 63 INJECT 150UNITS UNITS UNDER SKIN EVERY MORNING MAX 150UNITS/DAY INJECT 150UNITS UNITS UNDER SKIN EVERY MORNING MAX 150UNITS/DAY SOLD: 04/25/2021 [facility] 200 unit/mL (3 mL) 10/15/2020 12:00:00 AM EST insulin pen 63 INJECT 150UNITS UNITS UNDER SKIN EVERY MORNING MAX 150UNITS/DAY INJECT 150UNITS UNITS UNDER SKIN EVERY MORNING MAX 150UNITS/DAY SOLD: 10/15/2020 [facility] 200 unit/mL (3 mL) 10/15/2020 12:00:00 AM EST insulin pen 63 INJECT 150UNITS UNITS UNDER SKIN EVERY MORNING MAX 150UNITS/DAY INJECT 150UNITS UNITS UNDER SKIN EVERY MORNING MAX 150UNITS/DAY SOLD: 02/07/2021 [facility] 29 gauge x 1/2" 10/09/2020 12:00:00 AM EST needle 600 USE DIRECTED 6 TIMES A DAY MAXIMUM DAILY DOSE = 6 USE DIRECTED 6 TIMES A DAY MAXIMUM DA DENISE DOSE = 6 SOLD: 10/09/2020 [facility] 100 unit/mL 09/10/2020 12:00:00 AM EST insulin pen 30 INJECT DIRECTED PER SLIDING SCALE MAXIMUM DAILY DOSE = 53UNITS INJECT DIRECTED PER SLIDING SCALE MAXIMUM DAILY DOSE = 53UNITS SOLD: 09/10/2020 [facility] 50 mg 09/10/2020 12:00:00 AM EST tablet 60 TAKE ONE TABLET BY MOUTH TWICE A DAY NEEDED MAXIMUM DAILY DOSE = 2 TABLETS TAKE ONE TABLET BY MOUTH TWICE A DAY NEEDED MAXIMUM DAILY DOSE = 2 TABLETS SOLD: 09/10/2020 [facility] DIAPER,BRIEF,ADULT, DISPOSABLE 09/10/2020 12:00:00 AM EST mi sc 90 USE DIRECTED THREE TIMES A DAY USE DIRECTED THREE TIMES A DAY SOLD: 11/18/2020 [facility] DIAPER,BRIEF,ADULT, DISPOSABLE 09/10/2020 12:00:00 AM EST mi sc 90 USE DIRECTED THREE TIMES A DAY USE DIRECTED THREE TIMES A DAY SOLD: 09/10/2020 [facility] 80 mg 09/08/2020 12:00:00 AM EST tablet 90 TAKE ONE TABLET BY MOUTH EVERY EVENING TAKE ONE TABLET BY MOUTH EVERY EVENING SOLD: 09/08/2020 [facility] 300 mg 09/08/2020 12:00:00 AM EST tablet 90 TAKE 1 TABLET BY MOUTH ONCE A DAY TAKE 1 TABLET BY MOUTH ONCE A DAY SOLD: 09/08/2020 [facility] 0.6 mg/0.1 mL (18 mg/3 mL) 08/15/2020 12:00:00 AM EST pen in jector 27 INJECT 1.8MG UNDER SKIN ONCE DAILY INJECT 1.8MG UNDER SKIN ONCE DAILY SOLD: 08/16/2020 [facility] 0.6 mg/0.1 mL (18 mg/3 mL) 08/15/2020 12:00:00 AM EST pen in jector 27 INJECT 1.8MG UNDER SKIN ONCE DAILY INJECT 1.8MG UNDER SKIN ONCE DAILY SOLD: 11/18/2020 [facility] 200 unit/mL (3 mL) 08/14/2020 12:00:00 AM EST insulin pen 18 INJECT 150UNITSUNDER SKIN EVERY MORNING INJECT 150UNITSUNDER SKIN EVERY MORNING SOLD: 09/25/2020 [facility] 200 unit/mL (3 mL) 08/14/2020 12:00:00 AM EST insulin pen 18 INJECT 150UNITSUNDER SKIN EVERY MORNING INJECT 150UNITSUNDER SKIN EVERY MORNING SOLD: 08/14/2020 [facility] 200 unit/mL (3 mL) 08/14/2020 12:00:00 AM EST insulin pen 18 INJECT 150UNITSUNDER SKIN EVERY MORNING INJECT 150UNITSUNDER SKIN EVERY MORNING SOLD: 09/05/2020 [facility] 3 ML Insulin Lispro 100 UNT/ML Pen Injector [Humalog] Beto Dawn 07/30/2020 12:00:00 AM EST active MEDENT ([facility]) 1 mg 07/19/2020 12:00:00 AM EDT tablet 90 TAKE 1 TABLET BY MOUTH 1 TO 3 HOURS BEFORE BEDTIME TAKE 1 TABLET BY MOUTH 1 TO 3 HOURS BEFORE BEDTIME [facility] 1 mg 07/19/2020 12:00:00 AM EDT tablet 90 TAKE 1 TABLET BY MOUTH 1 TO 3 HOURS BEFORE BEDTIME TAKE 1 TABLET BY MOUTH 1 TO 3 HOURS BEFORE BEDTIME [facility] Zofran ODT 4 MG UNK 07/18/2020 12:00:00 AM EDT 1.0 {tablet_on_the_tongue_and_allow_to_dissolve} active Zofran ODT 4 MG eCW1 ([facility]) Zofran ODT 4 MG UNK 07/18/2020 12:00:00 AM EDT 1.0 {tablet_on_the_tongue_and_allow_to_dissolve} active Zofran ODT 4 MG eCW1 ([facility]) Zofran ODT 4 MG UNK 07/18/2020 12:00:00 AM EDT 1.0 {tablet_on_the_tongue_and_allow_to_dissolve} active Zofran ODT 4 MG eCW1 ([facility]) Zofran ODT 4 MG UNK 07/18/2020 12:00:00 AM EDT 1.0 {tablet_on_the_tongue_and_allow_to_dissolve} active Zofran ODT 4 MG eCW1 ([facility]) Zofran ODT 4 MG UNK 07/18/2020 12:00:00 AM EDT 1.0 {tablet_on_the_tongue_and_allow_to_dissolve} active Zofran ODT 4 MG eCW1 ([facility]) Zofran ODT 4 MG UNK 07/18/2020 12:00:00 AM EDT 1.0 {tablet_on_the_tongue_and_allow_to_dissolve} active Zofran ODT 4 MG eCW1 ([facility]) Zofran ODT 4 MG UNK 07/18/2020 12:00:00 AM EDT 1.0 {tablet_on_the_tongue_and_allow_to_dissolve} active Zofran ODT 4 MG eCW1 ([facility]) Zofran ODT 4 MG UNK 07/18/2020 12:00:00 AM EDT 1.0 {tablet_on_the_tongue_and_allow_to_dissolve} active Zofran ODT 4 MG eCW1 ([facility]) Zofran ODT 4 MG K 07/18/2020 12:00:00 AM EDT 1.0 {tablet_on_the_tongue_and_allow_to_dissolve} active Zofran ODT 4 MG eCW1 ([facility]) Zofran ODT 4 MG K 07/18/2020 12:00:00 AM EDT 1.0 {tablet_on_the_tongue_and_allow_to_dissolve} active Zofran ODT 4 MG eCW1 ([facility]) Zofran ODT 4 MG K 07/18/2020 12:00:00 AM EDT 1.0 {tablet_on_the_tongue_and_allow_to_dissolve} active Zofran ODT 4 MG eCW1 ([facility]) Zofran ODT 4 MG K 07/18/2020 12:00:00 AM EDT 1.0 {tablet_on_the_tongue_and_allow_to_dissolve} active Zofran ODT 4 MG eCW1 ([facility]) Zofran ODT 4 MG K 07/18/2020 12:00:00 AM EDT 1.0 {tablet_on_the_tongue_and_allow_to_dissolve} active Zofran ODT 4 MG eCW1 ([facility]) Zofran ODT 4 MG K 07/18/2020 12:00:00 AM EDT 1.0 {tablet_on_the_tongue_and_allow_to_dissolve} active Zofran ODT 4 MG eCW1 ([facility]) Zofran ODT 4 MG K 07/18/2020 12:00:00 AM EDT 1.0 {tablet_on_the_tongue_and_allow_to_dissolve} active Zofran ODT 4 MG eCW1 ([facility]) Zofran ODT 4 MG K 07/18/2020 12:00:00 AM EDT 1.0 {tablet_on_the_tongue_and_allow_to_dissolve} active Zofran ODT 4 MG eCW1 ([facility]) Zofran ODT 4 MG K 07/18/2020 12:00:00 AM EDT 1.0 {tablet_on_the_tongue_and_allow_to_dissolve} active Zofran ODT 4 MG eCW1 ([facility]) Zofran ODT 4 MG [facility] 07/18/2020 12:00:00 AM EDT 1.0 {tablet_on_the_tongue_and_allow_to_dissolve} active Zofran ODT 4 MG eCW1 ([facility]) Zofran ODT 4 MG [facility] 07/18/2020 12:00:00 AM EDT 1.0 {tablet_on_the_tongue_and_allow_to_dissolve} active Zofran ODT 4 MG eCW1 ([facility]) 4 mg 07/18/2020 12:00:00 AM EDT tablet,disintegrating 1 2 ALLOW 1 TABLET TO DISSOLVE ON THE TONGUE EVERY 8 HOURS NEEDED FOR NAUSEA AND VOMITING FOR 4 DAYS ALLOW 1 TABLET TO DISSOLVE ON THE TONGUE EVERY 8 HOURS NEEDED FOR NAUSEA AND VOMITING FOR 4 DAYS SOLD: 07/18/2020 [facility] Zofran ODT 4 MG [facility] 07/18/2020 12:00:00 AM EDT 1.0 {tablet_on_the_tongue_and_allow_to_dissolve} active Zofran ODT 4 MG eCW1 ([facility]) Zofran ODT 4 MG [facility] 07/18/2020 12:00:00 AM EDT 1.0 {tablet_on_the_tongue_and_allow_to_dissolve} active Zofran ODT 4 MG eCW1 ([facility]) Zofran ODT 4 MG K 07/18/2020 12:00:00 AM EDT 1.0 {tablet_on_the_tongue_and_allow_to_dissolve} active Zofran ODT 4 MG eCW1 ([facility]) 4 mg 07/11/2020 12:00:00 AM EDT tablet 30 TAKE ONE TABLET BY MOUTH THREE TIMES A DAY TAKE ONE TABLET BY MOUTH THREE TIMES A DAY SOLD: 07/12/2020 [facility] 236-22.74-6.74 -5.86 gram 07/11/2020 12:00:00 AM EDT recon s oln 4000 TAKE PER DOCTORS INSTRUCTIONS FOR BOWEL PREP TAKE PER DOCTORS INSTRUCTIONS FOR BOWEL PREP SOLD: 07/12/2020 [facility] POLYETHYLENE GLYCOL 3350 59 MG/ML / Pota ssium Chloride 0.01 MEQ/ML / Sodium Bicarbonate 0.02 MEQ/ML / Sodium Chloride 0.025 MEQ/ML / sodium sulfate 0.04 MEQ/ML Oral Solution [Golytely] Golytely 07/10/2020 12:00:00 AM EDT active MEDENT ([facility], ) Magnesium Hydroxide 80 MG/ML Oral Suspension Milk Of Magnesi a 07/10/2020 12:00:00 AM EDT ORAL active M EDENT ([facility], ) 33 gauge 07/03/2020 12:00:00 AM EDT misc 400 USE DIRECTED FOUR TIMES A DAY MAXIMUM DAILY DOSE = 4 USE DIRECTED FOUR TIMES A DAY MAXIMUM DAILY DOSE = 4 SOLD: 07/03/2020 [facility] BLOOD SUGAR DIAGNOSTIC 07/03/2020 12:00:00 AM EDT strip 400 USE DIRECTED FOUR TIMES A DAY NEEDED MAXIMUM DAILY DOSE = 4 USE DIRECTED FOUR TIMES A DAY NEEDED MAXIMUM DAILY DOSE = 4 SOLD: 07/03/2020 [facility] Lancets 07/02/2020 12:00:00 AM EDT activ e MEDENT ([facility] ) Fora Blood Glucose Test 07/02/2020 12:00:00 AM EDT active MEDENT ([facility]) 200 unit/mL (3 mL) 06/26/2020 12:00:00 AM EDT insulin pen 18 INJECT 150 UNITS UNDER THE SKIN EVERY MORNING MAXIMUM DAILY DOSE = 150 UNITS INJECT 150 UNITS UNDER THE SKIN EVERY MORNING MAXIMUM DAILY DOSE = 150 UNITS SOLD: 06/26/2020 [facility] 600 mg 06/26/2020 12:00:00 AM EDT tablet 270 TAKE ONE TABLET BY MOUTH THREE TIMES A DAY TAKE ONE TABLET BY MOUTH THREE TIMES A DAY SOLD: 06/26/2020 [facility] 17 gram/dose 06/26/2020 12:00:00 AM EDT powder 238 MIX 17 GRAMS IN 8 OUNCES OF WATER OR JUICE DAILY NEEDED FOR CONSTIPATION MIX 17 GRAMS IN 8 OUNCES OF WATER OR JUICE DAILY NEEDED FOR CONSTIPATION SOLD: 06/26/2020 [facility] 400 mg (241.3 mg magnesium) 06/12/2020 12:00:00 AM EDT table t 360 TAKE TWO TABLETS BY MOUTH TWICE A DAY TAKE TWO TABLETS BY MOUTH TWICE A DAY SOLD: 06/12/2020 [facility] 0.6 mg/0.1 mL (18 mg/3 mL) 06/05/2020 12:00:00 AM EDT pen in jector 18 INJECT 1.8MG UNDER THE SKIN ONCE DAILY MAXIMUM DAILY DOSE = 1.8MG INJECT 1.8MG UNDER THE SKIN ONCE DAILY MAXIMUM DAILY DOSE = 1.8MG SOLD: 06/05/2020 [facility] 0.005 % 06/01/2020 12:00:00 AM EDT drops 7 INSTILL ONE DROP INTO BOTH EYES EVERY NIGHT INSTILL ONE DROP INTO BOTH EYES EVERY NIGHT SOLD: 10/29/2020 [facility] 0.005 % 06/01/2020 12:00:00 AM EDT drops 7 INSTILL ONE DROP INTO BOTH EYES EVERY NIGHT INSTILL ONE DROP INTO BOTH EYES EVERY NIGHT SOLD: 01/10/2021 [facility] 0.005 % 06/01/2020 12:00:00 AM EDT drops 7 INSTILL ONE DROP INTO BOTH EYES EVERY NIGHT INSTILL ONE DROP INTO BOTH EYES EVERY NIGHT SOLD: 08/14/2020 [facility] 0.005 % 06/01/2020 12:00:00 AM EDT drops 7 INSTILL ONE DROP INTO BOTH EYES EVERY NIGHT INSTILL ONE DROP INTO BOTH EYES EVERY NIGHT SOLD: 06/01/2020 [facility] DIAPER,BRIEF,ADULT, DISPOSABLE 05/24/2020 12:00:00 AM EDT mi sc 144 USE DIRECTED 5 TIMES DAILY USE DIRECTED 5 TIMES DAILY SOLD: 05/24/2020 [facility] 30 mg 05/17/2020 12:00:00 AM EDT tablet 20 TAKE 1 TABLET BY MOUTH 5 TIMES PER WEEK, THURSDAY THROUGH THURSDAY TAKE 1 TABLET BY MOUTH 5 TIMES PER WEEK, Thursday SOLD: 09/24/2020 [facility] 30 mg 05/17/2020 12:00:00 AM EDT tablet 20 TAKE 1 TABLET BY MOUTH 5 TIMES PER WEEK, Thursday TAKE 1 TABLET BY MOUTH 5 TIMES PER WEEK, Thursday SOLD: 08/03/2020 [facility] 30 mg 05/17/2020 12:00:00 AM EDT tablet 20 TAKE 1 TABLET BY MOUTH 5 TIMES PER WEEK, Thursday TAKE 1 TABLET BY MOUTH 5 TIMES PER WEEK, Thursday SOLD: 06/12/2020 [facility] 30 mg 05/17/2020 12:00:00 AM EDT tablet 20 TAKE 1 TABLET BY MOUTH 5 TIMES PER WEEK, Thursday TAKE 1 TABLET BY MOUTH 5 TIMES PER WEEK, Thursday SOLD: 08/29/2020 [facility] 30 mg 05/17/2020 12:00:00 AM EDT tablet 20 TAKE 1 TABLET BY MOUTH 5 TIMES PER WEEK, Thursday TAKE 1 TABLET BY MOUTH 5 TIMES PER WEEK, Thursday SOLD: 07/08/2020 [facility] 200 unit/mL (3 mL) 05/11/2020 12:00:00 AM EDT insulin pen 18 INJECT 150 UNITS UNDER THE SKIN EVERY MORNING INJECT 150 UNITS UNDER THE SKIN EVERY MO RNING SOLD: 06/03/2020 [facility] carvedilol 25 MG Oral Tablet CARVEDILOL 04/30/2020 12:00:00 AM EDT tab let 60 TAKE 1 TABLET BY MOUTH TWICE A DAY TAKE 1 TABLET BY MOUTH TWICE A DAY SOLD: 07/25/2020 [facility] carvedilol 25 MG Oral Tablet CARVEDILOL 04/30/2020 12:00:00 AM EDT tab let 60 TAKE 1 TABLET BY MOUTH TWICE A DAY TAKE 1 TABLET BY MOUTH TWICE A DAY SOLD: 09/19/2020 [facility] carvedilol 25 MG Oral Tablet CARVEDILOL 04/30/2020 12:00:00 AM EDT tab let 60 TAKE 1 TABLET BY MOUTH TWICE A DAY TAKE 1 TABLET BY MOUTH TWICE A DAY SOLD: 06/27/2020 [facility] carvedilol 25 MG Oral Tablet CARVEDILOL 04/30/2020 12:00:00 AM EDT tab let 60 TAKE 1 TABLET BY MOUTH TWICE A DAY TAKE 1 TABLET BY MOUTH TWICE A DAY SOLD: 08/22/2020 [facility] carvedilol 25 MG Oral Tablet CARVEDILOL 04/30/2020 12:00:00 AM EDT tab let 60 TAKE 1 TABLET BY MOUTH TWICE A DAY TAKE 1 TABLET BY MOUTH TWICE A DAY SOLD: 05/30/2020 [facility] 29 gauge x 1/2" 04/16/2020 12:00:00 AM EDT needle 600 USE DIRECTED 6 TIMES A DAY MAXIMUM DAILY DOSE = 6 USE DIRECTED 6 TIMES A DAY MAXIMUM DA DENISE DOSE = 6 SOLD: 07/13/2020 [facility] 300 mg 03/15/2020 12:00:00 AM EDT tablet 90 TAKE ONE TABLET BY MOUTH EVERY DAY TAKE ONE TABLET BY MOUTH EVERY DAY SOLD: 06/12/2020 [facility] 100 unit/mL (3 mL) 03/13/2020 12:00:00 AM EDT insulin pen 15 INJECT DIRECTED MAXIMUM DAILY DOSE = 53 UNITS INJECT DIRECTED MAXIMUM DAILY DOSE = 53 UNITS SOLD: 06/05/2020 [facility] 80 mg 12/17/2019 12:00:00 AM EDT tablet 90 TAKE ONE TABLET BY MOUTH EVERY EVENING TAKE ONE TABLET BY MOUTH EVERY EVENING SOLD: 06/12/2020 [facility] Oxymetazoline HCl (NASAL SPRAY LONG ACTING NA) drug or medication Nasal aborted into each nostril [facility] 60 ACTUAT exenatide 0.01 MG/ACTUAT Pen I njector [Byetta] Exenatide (Byetta 10 MCG Pen) 10 MCG/0.04ML SOPN Exenatide (Byetta 10 MCG Pen) 10 MCG/0.04ML SOPN Subcutaneous aborted Inject unde r the skin [facility] Insurance Providers Payer name Policy type / Coverage type Policy ID Covered alliance party ID Covered alliance party's relationship to gunn Policy Gunn Plan Information MEDICARE [id number] SP [id number] MEDICARE [id number] Lida [id number] MEDICARE [id number] Lida [id number] MEDICARE A [id number] Self [id number] MEDICARE [id number] MEDICARE [id number] SP [id number] A MEDICAID [id number] SP [id number] [place] Primary [id number] Self 1 [id number] Medicare [place] Medicare Primary [id number] Self 1 [id number] Medicare [place] Medicare Primary [id number] Self 0 [id number] Medicare [place] Medicare Primary [id number] Self [id number] Medicare [place] Medicare Primary [id number] Self [id number] Medicare [place] Medicare Primary [id number] Self 1 [id number] Medicare [place] Medicare Primary [id number] Self 1 [id number] Medicare [place] Medicare Primary [id number] Self 1 [id number] Medicare [place] Medicare Primary [id number] Self 1 [id number] Medicare [place] Medicare Primary [id number] Self [id number] Medicaid [facility] Part B [id number] Self [id number] Medicare [place] Medicare Primary [id number] Self 1 [id number] Medicare [place] Medicare Primary [id number] Self 1 [id number] MEDICARE [id number] SP [id number] A MEDICAID [id number] SP [id number] MEDICAID [id number] SP [id number] MEDICAID [id number] SP [id number] MEDICAID M [id number] Self [id number] [facility] MEDICARE [id number] 1 [facility] MEDICARE [id number] Lida [id number] [facility] [id number] SP [id number] [facility] MEDICARE [id number] Lida [id number] 99 [facility] MEDICARE [id number] 1 MEDICAID [id number] Lida [id number] MEDICAID [id number] ANSI-Medicare Part B [id number] [facility] [id number] [facility] [id number] ANSI-Medicare Part B [id number] MEDICARE [id number] [facility] [id number] [facility] [id number] ANSI-Medicaid [id number] ANSI-Medicare Part B [id number] ANSI-Medicaid [id number] ANSI-Medicare Part B [id number] ANSI-Medicaid [id number] ANSI-Medicare Part B [id number] Medicaid [facility] Part B [id number] Self [id number] Medicare [place] Primary [id number] Self [id number] ANSI-Medicare Part B [id number] ANSI-Medicaid [id number] MEDICARE [id number] SP [id number] ANSI-Medicare Part B [id number] ANSI-Medicaid [id number] ANSI-Medicare Part B [id number] ANSI-Medicaid [id number] ANSI-Medicare Part B [id number] ANSI-Medicaid [id number] ANSI-Medicaid [id number] ANSI-Medicare Part B [id number] ANSI-Medicare Part B [id number] ANSI-Medicaid [id number] ANSI-Medicare Part B [id number] ANSI-Medicaid [id number] ANSI-Medicaid [id number] ANSI-Medicare Part B [id number] ANSI-Medicare Part B [id number] ANSI-Medicaid [id number] ANSI-Medicaid [id number] ANSI-Medicare Part B [id number] Medicaid [facility] Part B [id number] Self [id number] Medicare [place] Medicare Primary [id number] Self [id number] ANSI-Medicare Part B [id number] ANSI-Medicaid [id number] Medicaid [facility] Part B [id number] Self [id number] Medicare [place] Medicare Primary [id number] Self [id number] ANSI-Medicare Part B [id number] ANSI-Medicaid [id number] ANSI-Medicare Part B [id number] ANSI-Medicaid [id number] ANSI-Medicare Part B [id number] ANSI-Medicaid [id number] ANSI-Medicaid [id number] ANSI-Medicare Part B [id number] ANSI-Medicaid [id number] ANSI-Medicare Part B [id number] ANSI-Medicare Part B [id number] ANSI-Medicaid [id number] SELF PAY ONLY 000 SP 000 ANSI-Medicare Part B [id number] ANSI-Medicaid [id number] ANSI-Medicare Part B [id number] ANSI-Medicaid [id number] ANSI-Medicaid [id number] ANSI-Medicare Part B [id number] [facility] [id number] ANS-Medicaid [id number] [facility] [id number] ANS-Medicaid [id number] ANSI-Medicare Part B [id number] ANS-Medicaid [id number] Medicaid [facility] Part B [id number] .[id number] Self [id number] Medicare [place] Medicare Primary [id number] Self [id number] MEDICARE C [id number] S [id number] A Medicaid [facility] Part B [id number] .[id number] Self [id number] Medicare [place] Medicare Primary [id number] Self [id number] [place] MEDICARE PART B C [id number] S [id number] Medicaid [facility] Part B [id number] Self [id number] Medicare [place] Medicare Primary [id number] Self [id number] MEDICAID -I/P [id number] 18 [id number] MEDICARE PART A -I/P [id number] 18 [id number] [facility], [facility] C [id number] S [id number] MEDICAID -O/P EMERGENCY ROOM [id number] MEDICARE PART A -O/P [id number] 18 [id number] MEDICAID-O/P UNAVAILABLE UNAVA ILABLE Medicaid [facility] Part B [id number] Self [id number] Medicare Upstate/[facility] Medicare Primary [id number] Self [id number] MEDICAID [id number] SP [id number] [place]IC[place] MCR [id number] S [id number] [facility] MEDICAID [id number] SP [id number] U [id number] A [facility] MCRO [id number] SP [id number] [facility] [id number] SP [id number] [place] [id number] SP [id number] [facility] [id number] SP [id number] MEDICARE [id number] SP [id number] [facility](MCA[facility]) O [id number] S [id number] MEDICARE C [id number] S [id number] MEDICAID M [id number] S [id number] MEDICAID [id number] SP [id number] ANSI-Medicaid [id number] ANSI-Medicare Part B [id number] ANSI-Medicare Part B [id number] ANSI-Medicaid [id number] ANSI-Medicaid [id number] ANSI-Medicare Part B [id number] ANSI-Medicare Part B [id number] ANSI-Medicaid [id number] ANSI-Medicare Part B [id number] ANSI-Medicaid [id number] ANSI-Medicare Part B [id number] ANSI-Medicaid [id number] ANSI-Medicare Part B [id number] ANSI-Medicaid [id number] ANSI-Medicare Part B [id number] ANSI-Medicaid [id number] ANSI-Medicare Part B [id number] ANSI-Medicaid [id number] ANSI-Medicaid [id number] ANSI-Medicare Part B [id number] ANSI-Medicaid [id number] [facility]-Medicare Part B [id number] Problems, Conditions, and Diagnoses Code Display Name Description Problem Type Effective Dates Data Source(s) Z01.818 Encounter for other preprocedural examin ation Encounter for other preprocedural examin Diagnosis 04/09/2021 07:57:37 AM EDT [facility] E78.2 Mixed hyperlipidemia Mixed hyperlipidemia Diagnosis 04/09/2021 07:57:37 AM EDT [facility] I51.7 Cardiomegaly Cardiomegaly Diagnosis 04/09/2021 07:57:37 A M EDT [facility] I10 Essential (primary) hypertension Essential (primary) h ypertension Diagnosis 03/28/2021 06:59:00 AM EDT [facility] Z79.4 jail (current) use of insulin roasterman (cu rrent) use of insulin Diagnosis 03/28/2021 06:59:00 AM EDT [facility] N18.30 Chronic kidney disease, stage 3 unspecif ied Chronic kidney disease, stage 3 unspecif Diagnosis 03/28/2021 06:59:00 AM EDT [facility] E11.22 Type 2 diabetes mellitus with diabetic c hronic kidney disease Type 2 diabetes mellitus with diabetic c Diagnosis 03/28/2021 06:59:00 AM EDT [facility] R07.89 Other chest pain Other chest pain Diagnosis 03/28/2021 06 :59:00 AM EDT [facility] K21.9 Gastro-esophageal reflux disease without esophagitis Gastro-esophageal reflux disease without Diagnosis 01/28/2021 10:21:00 AM EDT [facility] U07.1 COVID-19 COVID-19 Diagnosis 01/23/2021 08:29:04 AM ED T [facility] J31.0 [id number] Rhinitis, unspecified type Problem 12:00:00 AM EDT eCW1 ([facility]) G43.019 [id number] Intractable migraine without aura and without status migrainosus Problem 03/19/2021 12:00:00 AM EDT [facility] Z01.818 Preoperative clearance Preoperative clearance [id number] 01/24/2021 12:00:00 AM EDT [facility] E11.22 Type 2 diabetes mellitus wit h chronic kidney disease, with long-term current use of insulin Type 2 diabetes mellitus with chronic ki dney disease, with long-term current use of insulin [id number] 01/24/2021 12:00:00 AM EDT [facility] I10 Essential hypertension Essential hypertension [id number] 01/24/2021 12:00:00 AM EDT [facility] E78.2 Mixed hyperlipidemia Mixed hyperlipidemia [id number] 01/24/2021 12:00:00 AM EDT [facility] R07.89 Chest discomfort Chest discomfort [id number] 01/24/2021 12 :00:00 AM EDT [facility] I51.7 Cardiomegaly Cardiomegaly [id number] 01/20/2021 12:00:00 A M EDT [facility] H40.9 Glaucoma Glaucoma of both eyes, unspecified glauco ma type Problem 11/20/2020 12:00:00 AM EST eCW1 ([facility]) E66.01 [id number] Morbid (severe) obesity due to excess c alories Problem 10/02/2020 12:00:00 AM EST eCW1 ([facility]) E78.2 [id number] Mixed hyperlipidemia Problem 08/21/2020 12:0 0:00 AM EST eCW1 ([facility]) Surgeries/Procedures Procedure Description Date Indications Data Source(s) ARTHROCENTESIS ASPIR&/INJECTION MAJOR JT/BURSA 021 12:00:00 AM EDT [facility] ([facility]) MRI BRAIN BRAIN STEM W/O CONTRAST MATERIAL 04/05/2021 12:00:00 AM EDT [facility] ([facility] ) MRI BRAIN BRAIN STEM W/O CONTRAST MATERIAL 04/05/2021 12:00:00 AM EDT [facility] ([facility] ) TROPONIN QUANTITATIVE <td>TROPONIN I</td><td>Routine</td><td>03/21/2021</td><td></td><td> </td> 03/21/2021 12:00:00 AM EDT [facility] PROTHROMBIN TIME <td>PROTIME- INR</td><td>Routine</td><td>03/20/2021</td><td></td><td> </td> 03/20/2021 12:00:00 AM T [facility] BLOOD COUNT COMPLETE AUTO&AUTO DIFRNTL WBC COUNT <td>C BC AND DIFFERENTIAL</td><td>Routine</td><td>03/20/2021</td><td></td><td> </td> 03/20/2021 12:00:00 AM T [facility] PROTHROMBIN TIME <td>POCT INR</td><td>Routine</td><td>03/20/2021</td><td></td><td> </td> 03/20/2021 12:00:00 AM EDT [facility] HEPATIC FUNCTION PANEL <td>HEPATIC FUNCTION PANEL</td><td>Routine</td><td>03/20/2021</td><td></td><td> </td> 03/20/2021 12:00:00 AM T [facility] BASIC METABOLIC PANEL CALCIUM TOTAL <td>BASIC METABOLI C PANEL</td><td>Routine</td><td>03/20/2021</td><td></td><td> </td> 03/20/2021 12:00:00 AM EDT [facility] POCT AMB EKG <td>POCT AMB EKG</td><td>Rou julia</td><td>03/12/2021 12:37 PM EDT</td><td> Chest discomfort</td><td> </td> 03/12/2021 12:37:00 PM EDT Chest discomfort [facility] Chest discomfort OFFICE OUTPATIENT VISIT 15 MINUTES 02/14/2021 12:00:00 AM EDT [facility] ([facility]) UPPER NDSC BIOPSY SINGLE/MULTIPLE 01/28/2021 12:00:00 AM EDT [facility] ([facility]) POCT AMB EKG <td>POCT AMB EKG</td><td>Rou julia</td><td>01/24/2021 3:46 PM EDT</td><td> Cardiomegaly</td><td> </td> 01/24/2021 03:46:00 PM EDT Cardiomegaly [facility] Cardiomegaly ARTHROCENTESIS ASPIR&/INJECTION MAJOR JT/BURSA 021 12:00:00 AM EDT [facility] ([facility]) Diabetic Foot Exam 12/04/2020 12:00:00 AM EST [facility] ([facility]) BLOOD COUNT COMPLETE AUTO&AUTO DIFRNTL WBC COUNT <td>C BC AND DIFFERENTIAL</td><td>Routine</td><td>11/24/2020</td><td></td><td> </td> 11/24/2020 12:00:00 AM EST [facility] THYROID STIMULATING HORMONE TSH <td>TSH</td><td>Routine</td><td>11/24/2020</td><td></td><td> </td> 11/24/2020 12:00:00 AM [facility] BASIC METABOLIC PANEL CALCIUM TOTAL <td>BASIC METABOLI C PANEL</td><td>Routine</td><td>11/24/2020</td><td></td><td> </td> 11/24/2020 12:00:00 AM [facility] HEMOGLOBIN GLYCOSYLATED A1C <td>HEMOGLOBIN A1C</td><td>Routine</td><td>11/20/2020</td><td></td><td> </td> 11/20/2020 12:00:00 AM [facility] LIPID PANEL <td>LIPID PANEL</td><td>Rout ine</td><td>11/20/2020</td><td></td><td> </td> 11/20/2020 12:00:00 AM [facility] ARTHROCENTESIS ASPIR&/INJECTION MAJOR JT/BURSA 020 12:00:00 AM EST [facility] ([facility] ) RADIOLOGIC EXAM KNEE COMPLETE 4/MORE VIEWS 08/17/2020 12:00:00 AM EST [facility] ([facility]) RADIOLOGIC EXAM KNEE COMPLETE 4/MORE VIEWS 08/17/2020 12:00:00 AM EST [facility] ([facility] ) RADIOLOGIC EXAM KNEE COMPLETE 4/MORE VIEWS 08/17/2020 12:00:00 AM EST [facility] ([facility] ) RADIOLOGIC EXAM KNEE COMPLETE 4/MORE VIEWS 08/17/2020 12:00:00 AM EST [facility] ([facility] ) TSTG ANS FUNCJ CARDIOVAGAL INNERVAJ PARASYMP 0 12:00:00 AM EDT [facility] ([facility]) TSTG ANS FUNCJ CARDIOVAGAL INNERVAJ PARASYMP 0 12:00:00 AM EDT [facility] ([facility] ) TESTING AUTONOMIC NERVOUS SYSTEM FUNCTION 07/20/2020 1 2:00:00 AM EDT [facility] ([facility]) TESTING AUTONOMIC NERVOUS SYSTEM FUNCTION 07/20/2020 1 2:00:00 AM EDT [facility] ([facility]) PNEUMOCOCCAL CONJ VACCINE 13 VALENT IM 06/27/2020 12:0 0:00 AM EDT eCW1 ([facility]) Immunization: Flublok Quadrivalent (18 years & older) 0.5mL IM (Influenza) 06/27/2020 12:00:00 AM EDT eCW1 ([facility]) RADEX SPINE LUMBOSACRAL 2/3 VIEWS 06/08/2020 12:00:00 AM EDT [facility] ([facility]) Results ID Date Data Source [id number] 03/28/2021 08:24:46 AM EDT [facility] Name Value Range Interpretation Code Description Data Allegra rce(s) Supporting Document(s) [facility] [id number] jb2 [file] [id number] ID Date Data Source [id number] 03/28/2021 07:53:15 AM EDT [facility] [place] [facility] Name Value Range Interpretation Code Description Data Allegra rce(s) Supporting Document(s) POC NOVA GLU 252 mg/dL (70-99) H [facility] [place] [facility] [place] PERFORMED BY [facility]ICAL STAFF ID Date Data Source [id number] 03/13/2021 07:25:00 AM EDT [facility] FASTING: UNKNOWNReceived: 03/13/2021 at 06:28:00 QPT: [facility], [address], [address] [place] [address], [phone], Nito Smallwood MD Received: 03/13/2021 at 06:28:00 QPT : [facility], [address], [address] [place] [address], [phone], Nito Smallwood MD Name Value Range Interpretation Code Description Data Allegra rce(s) Supporting Document(s) Glucose [Mass/volume] in Serum or Plasma 274 mg/dL 65-99 Above high normal [facility] Fasting reference intervalFor someone without known diabetes, a glucosevalue >125 mg/dL indicates that they may havediabetes and this should be confirmed with afollow-up test. Urea nitrogen [Mass/volume] in Serum or Plasma 19 mg/dL 7 -25 Normal (applies to non-numeric results) [facility] Creatinine [Mass/volume] in Serum or Plasma 1.26 mg/dL 0.50 -0.99 Above high normal [facility] For patients >49 years of age, the refer ence limitfor Creatinine is approximately 13% higher for peopleidentified as -Scottish. eGFR NON-AFR. MARSHALLESE 44 mL/min/1.73m2 > OR = 60 Below low normal [facility] eGFR 51 mL/min/1.73m2 > OR = 60 Below low normal [facility] Urea nitrogen/Creatinine [Mass Ratio] in Serum or Plasma 15 (isael c) 6-22 Normal (applies to non-numeric results) [facility] Sodium [Moles/volume] in Serum or Plasma 141 mmol/L 135-146 Normal (applies to non-numeric results) [facility] Potassium [Moles/volume] in Serum or Plasma 4.1 mmol/L 3.5- 5.3 Normal (applies to non-numeric results) [facility] Chloride [Moles/volume] in Serum or Plasma 108 mmol/L 98-11 0 Normal (applies to non-numeric results) [facility] Carbon dioxide, total [Moles/volume] in Serum or Plasma 24 mmol/ L 20-32 Normal (applies to non-numeric results) [facility] Calcium [Mass/volume] in Serum or Plasma 8.4 mg/dL 8.6-10.4 Below low normal [facility] ID Date Data Source [id number] 03/13/2021 07:25:00 AM EDT [facility] FASTING: UNKNOWNReceived: 03/13/2021 at 06:28:00 QPT: [facility], [address], [address] [place] [address], [phone], Nito Smallwood MD Received: 03/13/2021 at 06:28:00 QPT : [facility], [address], [address] [facility], [place], [phone], Nito Smallwood MD Name Value Range Interpretation Code Description Data Allegra rce(s) Supporting Document(s) Leukocytes [#/volume] in Blood by Automated count 7.4 Thousand/u L 3.8-10.8 Normal (applies to non-numeric results) [facility] Erythrocytes [#/volume] in Blood by Automated count 4.42 Million /uL 3.80-5.10 Normal (applies to non-numeric results) [facility] Hemoglobin [Mass/volume] in Blood 12.7 g/dL 11.7-15.5 Normal (applies to non- numeric results) [facility] Hematocrit [Volume Fraction] of Blood by Automated count 40.4 % 35.0-45.0 Normal (applies to non-numeric results) [facility] Erythrocyte mean corpuscular volume [Entitic volume] by Auto mated count 91.4 fL 80.0-100.0 Normal (applies to non-numeric results) [facility] Erythrocyte mean corpuscular hemoglobin [Entitic mass] by Automated count 28.7 pg 27.0-33.0 Normal (applies to non-numeric results) [facility] Erythrocyte mean corpuscular hemoglobin concentration [Mass/volume] by Automated count 31.4 g/dL 32.0-36.0 Below low normal [facility] Erythrocyte distribution width [Ratio] by Automated count 13.7 % 11.0-15.0 Normal (applies to non-numeric results) [facility] Platelets [#/volume] in Blood by Automated count 179 Thousand/uL 140-400 Normal (applies to non-numeric results) [facility] Platelet mean volume [Entitic volume] in Blood by Danny-Justyn 11. 0 fL 7.5-12.5 Normal (applies to non-numeric results) [facility] Your request to have a duplicate copy faxed has been acknowledged. Queued to: [id number] ID Date Data Source [id number] 03/07/2021 09:19:00 AM EDT [facility] ([facility]) Name Value Range Interpretation Code Description Data Allegra rce(s) Supporting Document(s) Hemoglobin A1c/Hemoglobin.total in Blood 8.8 [facility] ([facility]) Glucose [Mass/volume] in Serum or Plasma 233 [facility] ([facility]) ID Date Data Source [id number] 02/04/2021 05:30:48 PM EDT [facility] LABORATORY [address] [address]# Surgical Pathology ReportPatient Name: ORLANDO PERALESB: 5Accession #:[id number]([id number]) ReceivedA: Antrum bxB: Gastric body bxClinical Diagnosis and HistoryGERD, r/o H. pylori DIAGNOSISA. STOMACH, ANTRUM, BIOPSY: GASTRIC MUCOSA WITH VASCULAR CONGESTION. IMMUNOSTAIN FOR HELICOBACTER PYLORI IS NEGATIVE.B. STOMACH, BODY, BIOPSY: GASTRIC MUCOSA WITH NO SIGNIFICANT PATHOLOGIC CHANGES. Gross DescriptionPart A. Received in formalin labeled "antrum biopsy rule out H. pylori"are three dugan-pink irregular fragments of tissue ranging from 0.2 to 0.3cm. Entirely submitted as A1. Multilevel. Part B. Received in formalin labeled "gastric body biopsy" are twotan-pink irregular fragments of tissue measuring 0.4 and 0.5 cm. Entirelysubmitted as B1. Multilevel. jgllmr/bc Reported: 02/04/2021Electronically Signed Out By Christiano Em MD [facility] [place] [id number] component performed at [facility], [address] [place] [address], [phone].Reported at [facility], [address] [place] [address], [phone]. This report may includeimmunohistochemical or in-situ hybridization results. Testing wasdeveloped and the performance characteristics determined by [employer] as required by CLIA '88. The FDA hasdetermined that approval for specific use is not necessary for clinicaluse. The quality of Hematoxylin and Eosin stains and as applicable, forall immunohistochemical and/or special stains, including positive andnegative controls, were reviewed and considered appropriate.ICD codes K21.9CPT codesA: 10191K, 30065bP: 14062I Name Value Range Interpretation Code Description Data Allegra rce(s) Supporting Document(s) ID Date Data Source [id number] 01/28/2021 11:13:59 AM EDT [facility] INFORMATIONPatient MRN Name Date of Age Gend*PT [id number] Cecily Perales 1955 65 years F OPPT Location Admission Date/Time [facility] --- Bairon Melgar MD([id number]) EPI ID [facility] Admitting Provider [id number] Bairon Melgar MD([id number])Endoscopic Gastroduodenoscopy Procedure NotePatient: Cecily CamaranerSurgery Date: January 28urgeon(s):JOSE Robersonre-Operative Diagnosis:GERD (gastroesophageal reflux disease) [K21.9]Post-Operative Diagnosis:GERD (gastroesophageal reflux disease) [K21.9]Diffuse gastric erythemaHiatal herniaRecommendations:1. Will send biopsy results to Dr. Jang's officeSedation: Monitored Anesthesia Care (MAC) (see anesthesia report).ASA Class: IIIOther Equipment Type Equipment Setting Setting Low Setting High Applied By Endoscope Bairon Melgar MD Endoscope Pediatric (ENDO)Indications: GERD (gastroesophageal reflux disease) [K21.9]Consent:After obtaining history and performing the physical examination, the procedure,indications, potential complications, including but not limited to bleeding,perforation, infection, adverse medication reaction, and alternatives wereexplained to the patient. Patient appeared to understand the benefits and risksof this procedure. Informed consent was obtained from the patient afterproviding opportunity for questions.Procedure Details:The patient was placed in the left lateral decubitus position and monitored perendoscopy protocol. The gastroscope was inserted into the mouth and advancedunder direct visualization to Duodenum 3rd portion. A careful inspection wasmade as the gastroscope was withdrawn, including a retroflexed view of theproximal stomach; findings and interventions are described below. Aftercompletion of the examination, the patient was transferred to the recovery room.* No implants in log *Findings:Oropharynx: NormalEsophagus: NormalEG Junction: Normal at 34 cmCardia: 2cm hiatal herniaFundus: NormalBody: Diffuse erythemaAntrum: Diffuse erythema. Biopsy for H pylori taken.Pylorus: NormalDuodenum Bulb: NormalDuodenum 2nd Portion: NormalDuodenum 3rd Portion: NormalSpecimens:ID Type Source Tests Collected by Time DestinationA : Antrum BX r/o h.pylori Tissue Biopsy SURGICAL PATHOLOGY EXAM Bairon Melgar MD 01/28/2021 1110B : Gastric body BX Tissue Biopsy SURGICAL PATHOLOGY EXAM Bairon Melgar MD01/28/2021 1111Complications: None; patient tolerated the procedure well.Estimated Blood Loss: minimalThomas Lizeth Melgar MD111:13 AM Name Value Range Interpretation Code Description Data Allegra rce(s) Supporting Document(s) ID Date Data Source [id number] 01/28/2021 10:45:52 AM EDT [facility] INFORMATIONPatient MRN Name Date of Age Gend*PT [id number] Cecily Perales 1955 65 years F OPPT Location Admission Date/Time [facility] --- Bairon Melgar MD([id number]) EPI ID [facility] Admitting Provider [id number] Bairon Melgar MD([id number])Pre-Procedure History and Physical:Past Medical History:Diagnosis Date CRI (chronic renal insufficiency), stage 3 (moderate) DVT (deep venous thrombosis) 2008 RLE GERD (gastroesophageal reflux disease) Hyperlipidemia Hypertension Morbid obesity FRDEDY (obstructive sleep apnea) Pulmonary embolism 2008 Type 2 diabetes mellitusPast Surgical History:Procedure Laterality Date BACK SURGERY 1971 BREAST BIOPSY Right 2017 CARPAL TUNNEL RELEASE Bilateral CERVICAL BIOPSY W/ LOOP ELECTRODE EXCISION 2016 CHOLECYSTECTOMY TUBAL LIGATION VARICOSE VEIN SURGERY Bilateral 1998No Known Drug AllergiesMedications Prior to AdmissionMedication Sig Dispense Refill Last Dose allopurinol (ZYLOPRIM) 300 MG tablet Take 300 mg by mouth daily carvedilol (COREG) 25 MG tablet Take 25 mg by mouth 2 (two) times a day cetirizine (ZyrTEC) 10 MG tablet Take 10 mg by mouth daily cholecalciferol (VITAMIN D3) 25 MCG (1000 UT) tablet Take 1,000 Units by mouthdaily cinacalcet (SENSIPAR) 30 MG tablet TAKE 1 TABLET BY MOUTH 5 TIMES PER WEEKMONDAY THROUGH THURSDAY gabapentin (NEURONTIN) 600 MG tablet Take 600 mg by mouth 3 (three) times aday glimepiride (AMARYL) 4 MG tablet Take 4 mg by mouth 2 (two) times a day HumaLOG KwikPen 100 UNIT/ML SOPN INJECT UNDER SKIN DIRECTED PER SLIDINGSCALE MAX 53UNITS/DAY latanoprost (XALATAN) 0.005 % ophthalmic solution INSTILL ONE DROP INTO BOTHEYES EVERY NIGHT magnesium oxide (MAG-OX) 400 MG tablet TAKE TWO TABLETS BY MOUTH TWICE A DAY meclizine (ANTIVERT) 12.5 MG tablet Take 12.5 mg by mouth 3 (three) times a day as needed omeprazole (PriLOSEC OTC) 20 MG tablet Take 20 mg by mouth daily rOPINIRole (REQUIP) 1 MG tablet Take 1 mg by mouth 3 (three) times a day simvastatin (ZOCOR) 80 MG tablet Take 80 mg by mouth tiZANidine (ZANAFLEX) 4 MG tablet Take 4 mg by mouth every 6 (six) hours asneeded traMADol (ULTRAM) 50 MG tablet Take 50 mg by mouth every 6 (six) hours asneeded for pain Victoza 18 MG/3ML SOPN INJECT 1.8MG UNDER SKIN ONCE DAILY [DISCONTINUED] azelastine (ASTELIN) 0.1 % nasal spray 1-2 sprays into eachnostril 2 (two) times a day Use in each nostril as directedThere were no vitals taken for this visit.The scanned [11/14/2020] history and physical were reviewed and the patient wasexamined.There are no changes to the H&P.Bairon Melgar MD01/28/21 10:45 AM Name Value Range Interpretation Code Description Data Allegra rce(s) Supporting Document(s) ID Date Data Source [id number] 01/28/2021 10:43:38 AM EDT [facility] [place] [facility] Name Value Range Interpretation Code Description Data Allegra rce(s) Supporting Document(s) POC NOVA GLU 133 mg/dL (70-99) H [facility] [place] Bret DUNN PERFORMED BY [facility]ICAL STAFF ID Date Data Source [id number] 01/23/2021 08:35:00 AM EDT [facility] Name Value Range Interpretation Code Description Data Allegra rce(s) Supporting Document(s) SARS coronavirus 2 RNA Not Detected [facility] [place] This lab was ordered by [facility] [place] [facility] and reported by [facility]. ID Date Data Source [id number] 01/24/2021 02:10:17 PM EDT Lab [facility] Name Value Range Interpretation Code Description Data Allegra rce(s) Supporting Document(s) SARS-COV-2 [facility] Not DetectedReference range: Not Detecte d This nucleic acid amplification test was developed and its performance characteristics determined by [employer]. Nucleic acid amplification tests include RT-PCR and TMA. This test has not been FDA cleared or approved. This test has been authorized by FDA under an Emergency Use Authorization (EUA). This test is only authorized for the duration of time the declaration that circumstances exist justifying the authorization of the emergency use of in vitro diagnostic tests for detection of SARS-CoV-2 virus and/or diagnosis of COVID-19 infection under section 564(b)(1) of the Act, 21 U.S.C. 360bbb-3(b) (1), unless the authorization is terminated or revoked sooner. When diagnostic testing is negative, the possibility of a false negative result should be considered in the context of a patient's recent exposures and the presence of clinical signs and symptoms consistent with COVID- 19. An individual without symptoms of COVID- 19 and who is not shedding S ARS-CoV-2 virus would expect to have a negative (not detected) result in this assay. Performed At: [employer] [address] [place], [place] [id number] Miesha Hester PhD Ph:[phone] ID Date Data Source [id number] 10/23/2020 02:00:00 PM EST [facility] Name Value Range Interpretation Code Description Data Allegra rce(s) Supporting Document(s) SARS coronavirus [address] [facility] [place] This lab was ordered by [facility] and reported by [facility]. ID Date Data Source [id number] 07/31/2020 08:06:00 AM EST [facility] ([facility], ) Name Value Range Interpretation Code Description Data Allegra rce(s) Supporting Document(s) Surgical pathology study Laboratory test result [facility] ([facility], ) FINAL DIAGNOSIS A-Descending colon polyp, polypectomy: Tubular adenoma. B-Colon, random biopsy: Colonic mucosa without significant pathology. 08/01/2020 - 135 CLINICAL DIAGNOSIS History colon polyps 07/31/2020 - 1520 GROSS DIAGNOSIS A - Received in formalin labeled "descending colon polyp" consists of a fragment of tissue, 0.1 x 0.1 x 0.1 cm. All in one. B - Received in formalin labeled "random colon biopsy" and consists of a fragment of tissue, 0.2 x 0.1 x 0.1 cm. All in one. -OA 07/31/2020 - 1520 Signed RAMON DUKE MD 08/01/2020 1353 ID Date Data Source [id number] 07/31/2020 07:09:00 AM EST [facility] ([facility], ) Name Value Range Interpretation Code Description Data Allegra rce(s) Supporting Document(s) Glucose [Mass/volume] in Capillary blood by Glucometer 220 mg/dL 80-115 Above high normal [facility] ([facility]) ID Date Data Source [id number] 07/26/2020 10:25:00 AM EDT [facility] Name Value Range Interpretation Code Description Data Allegra rce(s) Supporting Document(s) SARS coronavirus 2 RNA [facility] This lab was ordered by [facility] and reported by [facility]. ID Date Data Source [id number] 06/28/2020 10:00:00 PM EDT [facility] ([facility]) Name Value Range Interpretation Code Description Data Allegra rce(s) Supporting Document(s) Elastase.pancreatic [Mass/mass] in Stool Laboratory test result Normal (applies to non-numeric results) [facility] ([facility]) <content>Result Units: ug Elast./g</cont ent>
<content>Severe Pancreatic Insufficiency: <100</content>
<content>Moderate Pancreatic Insufficiency: 100 - 200</content>
<content>Normal: >200</content>
<content>Performed at: [facility]</content>
<content>[address] [place] [id number]</content>
<content>Assistant Bookkeeper: Dat Flores MD, Phone: [phone]</content>
<content></content> ID Date Data Source [id number] 06/27/2020 02:17:00 PM EDT [facility] ([facility], ) Name Value Range Interpretation Code Description Data Allegra rce(s) Supporting Document(s) Tissue transglutaminase IgA Ab [Units/volume] in Serum 3 U/mL 0-3 Normal (applies to non-numeric results) [facility] ([facility]) Negative 0 - 3 Weak Positive 4 - 10 Positive >10 . Tissue Transglutaminase (tTG) has been identified as the endomysial antigen. Studies have demonstr- ated that endomysial IgA antibodies have over 99% specificity for gluten sensitive enteropathy. Performed at: [facility] Lab[address] [id number] Assistant Bookkeeper: Keiry Munguia MD, Phone: [phone] ID Date Data Source [id number] 06/05/2020 04:15:00 PM EDT [facility] ([facility]) Name Value Range Interpretation Code Description Data Allegra rce(s) Supporting Document(s) Glucose [Mass/volume] in Serum or Plasma 256 [facility] ([facility]) Hemoglobin A1c/Hemoglobin.total in Blood 9.5 [facility] ([facility]) Procedure Social History Code Duration Value Status Description Data Source(s ) Smoking 04/30/2021 12:00:00 AM EDT Never Smoker completed Never S moker eCW1 ([facility]) Alcohol intake 04/09/2021 12:00:00 AM EDT Lifetime non-drinker (finding) completed Lifetime non-drinker (finding) [facility] Smoking 04/02/2021 12:00:00 AM EDT Never Smoker completed Never S moker eCW1 ([facility]) Smoking 04/02/2021 12:00:00 AM EDT Never Smoker completed Never S moker eCW1 ([facility]) Smoking 04/02/2021 12:00:00 AM EDT Never Smoker completed Never S moker eCW1 ([facility]) Smoking 04/02/2021 12:00:00 AM EDT Never Smoker completed Never S moker eCW1 ([facility]) Smoking 03/19/2021 12:00:00 AM EDT Never Smoker completed Never S moker eCW1 ([facility]) Alcohol intake 03/12/2021 12:00:00 AM EDT Lifetime non-drinker (finding) completed Lifetime non-drinker (finding) [facility] Tobacco use and exposure 01/24/2021 12:00:00 AM EDT Never used co mpleted Never used [facility] Smoking 01/24/2021 12:00:00 AM EDT Never smoker completed Never s moker [facility] Alcohol intake 01/24/2021 12:00:00 AM EDT Lifetime non-drinker (finding) completed Lifetime non-drinker (finding) [facility] Smoking 12/04/2020 12:00:00 AM EST Patient has never smoked co mpleted Patient has never smoked [facility] ([facility]) Smoking 11/20/2020 12:00:00 AM EST Never Smoker completed Never S moker eCW1 ([facility]) Smoking 11/20/2020 12:00:00 AM EST Never Smoker completed Never S moker eCW1 ([facility]) Smoking 08/21/2020 12:00:00 AM EST Never Smoker completed Never S moker eCW1 ([facility]) Smoking 08/21/2020 12:00:00 AM EST Never Smoker completed Never S moker eCW1 ([facility]) Smoking 08/21/2020 12:00:00 AM EST Never Smoker completed Never S moker eCW1 ([facility]) Smoking 08/21/2020 12:00:00 AM EST Never Smoker completed Never S moker eCW1 ([facility]) Smoking 08/21/2020 12:00:00 AM EST Never Smoker completed Never S moker eCW1 ([facility]) Smoking 08/21/2020 12:00:00 AM EST Never Smoker completed Never S moker eCW1 ([facility]) Smoking 08/21/2020 12:00:00 AM EST Never Smoker completed Never S moker eCW1 ([facility]) Smoking 08/21/2020 12:00:00 AM EST Never Smoker completed Never S moker eCW1 ([facility]) Smoking 08/21/2020 12:00:00 AM EST Never Smoker completed Never S moker eCW1 ([facility]) Smoking 08/21/2020 12:00:00 AM EST Never Smoker completed Never S moker eCW1 ([facility]) Smoking 07/31/2020 12:00:00 AM EST Never Smoker completed Never S moker eCW1 ([facility]) Smoking 07/18/2020 12:00:00 AM EDT Never Smoker completed Never S moker eCW1 ([facility]) Smoking 07/18/2020 12:00:00 AM EDT Never Smoker completed Never S moker eCW1 ([facility]) Smoking 07/18/2020 12:00:00 AM EDT Never Smoker completed Never S moker eCW1 ([facility]) Smoking 06/27/2020 12:00:00 AM EDT Never Smoker completed Never S moker eCW1 ([facility]) Vital Signs ID Date Data Source UNK Name Value Range Interpretation Code Description Data Source(s) Body weight 333.4 [lb_av] 333.4 [lb_av] eCW1 ([facility]) Body mass index (BMI) [Ratio] 55.47 kg/m2 55.47 kg/m2 eCW1 ([facility]) Heart rate 100 /min 100 /min eCW1 ([facility]) Respiratory rate 18 /min 18 /min eCW1 ([facility]) Body temperature 95.6 [degF] 95.6 [degF] eCW1 ( [facility]) Systolic blood pressure 140 mm[Hg] 140 mm[Hg] e CW1 ([facility]) Diastolic blood pressure 80 mm[Hg] 80 mm[Hg] eCW1 ([facility]) Body height 65 [in_i] 65 [in_i] eCW1 ([facility] Systolic blood pressure 138 mm[Hg] 138 mm[Hg] [facility] Diastolic blood pressure 82 mm[Hg] 82 mm[Hg] [facility] Heart rate 84 /min 84 /min [facility] Body height 165.1 cm 165.1 cm [facility] Body weight 151.501 kg 151.501 kg [facility] Body mass index (BMI) [Ratio] 55.58 kg/m2 55.58 kg/m2 [facility] Oxygen saturation in Arterial blood by Pulse oximetry 92 % 92 % [facility] Body weight 334 [lb_av] 334 [lb_av] eCW1 ([facility]) Body height 65 [in_i] 65 [in_i] eCW1 ([facility]) Body mass index (BMI) [Ratio] 55.57 kg/m2 55.57 kg/m2 eCW1 ([facility]) Heart rate 92 /min 92 /min eCW1 ([facility]) Respiratory rate 18 /min 18 /min eCW1 ([facility]) Body temperature 97.2 [degF] 97.2 [degF] eCW1 ( [facility]) Systolic blood pressure 126 mm[Hg] 126 mm[Hg] e CW1 ([facility]) Diastolic blood pressure 80 mm[Hg] 80 mm[Hg] eCW1 ([facility]) Body weight 333 [lb_av] 333 [lb_av] eCW1 ([facility]) Body height 65 [in_i] 65 [in_i] eCW1 ([facility]) Body mass index (BMI) [Ratio] 55.41 kg/m2 55.41 kg/m2 W1 ([facility]) Heart rate 96 /min 96 /min eCW1 ([facility]) Respiratory rate 18 /min 18 /min eCW1 ([facility]) Body temperature 96.9 [degF] 96.9 [degF] eCW1 ( [facility]) Systolic blood pressure 138 mm[Hg] 138 mm[Hg] e CW1 ([facility]) Diastolic blood pressure 84 mm[Hg] 84 mm[Hg] eCW1 ([facility]) Systolic blood pressure 126 mm[Hg] 126 mm[Hg] [facility] Diastolic blood pressure 90 mm[Hg] 90 mm[Hg] [facility] Heart rate 85 /min 85 /min [facility] Body height 165.1 cm 165.1 cm [facility] Body weight 152.409 kg 152.409 kg [facility] Body mass index (BMI) [Ratio] 55.91 kg/m2 55.91 kg/m2 [facility] Oxygen saturation in Arterial blood by Pulse oximetry 93 % 93 % [facility] Systolic blood pressure 142 mm[Hg] 142 mm[Hg] M EDENT ([facility]) Diastolic blood pressure 86 mm[Hg] 86 mm[Hg] [facility] ([facility]) Heart rate 90 /min 90 /min [facility] ([facility]) Body temperature 95.9 [degF] 95.9 [degF] [facility] ([facility]) Body height 66.4 [in_i] 66.4 [in_i] [facility] ([facility]) 5'6.40" Body weight 333.12 [lb_av] 333.12 [lb_av] MEDEN T ([facility]) Body mass index (BMI) [Ratio] 53.1 kg/m2 53.1 k g/m2 [facility] ([facility] ) Oxygen saturation in Arterial blood by Pulse oximetry 95 % 95 % [facility] ([facility]) Respiratory rate 12 /min 12 /min [facility] ( [facility]) Body height 66 [in_i] 66 [in_i] [facility] ([facility] ) 5'6" Body weight 325.00 [lb_av] 325.00 [lb_av] MEDEN T ([facility] ) Body mass index (BMI) [Ratio] 52.5 kg/m2 52.5 k g/m2 [facility] ([facility]) [place] body weight 130 [lb_av] 130 [lb_av] MEDEN T ([facility] ) Systolic blood pressure 142 mm[Hg] 142 mm[Hg] [facility] Diastolic blood pressure 88 mm[Hg] 88 mm[Hg] [facility] Heart rate 78 /min 78 /min [facility] Body height 167.6 cm 167.6 cm [facility] Body weight 154.677 kg 154.677 kg [facility] Body mass index (BMI) [Ratio] 55.04 kg/m2 55.04 kg/m2 [facility] Oxygen saturation in Arterial blood by Pulse oximetry 95 % 95 % [facility] Body weight 339.00 [lb_av] 339.00 [lb_av] MEDEN T ([facility] ) Heart rate 80 /min 80 /min [facility] ([facility] ) Body temperature 957.0 [degF] 957.0 [degF] MEDE NT ([facility] ) Body height 66.4 [in_i] 66.4 [in_i] [facility] ([facility] 5'6.40" Body mass index (BMI) [Ratio] 54.1 kg/m2 54.1 k g/m2 [facility] ([facility] ) Oxygen saturation in Arterial blood by Pulse oximetry 98 % 98 % [facility] ([facility] ) Systolic blood pressure 136 mm[Hg] 136 mm[Hg] M EDENT ([facility] ) Diastolic blood pressure 84 mm[Hg] 84 mm[Hg] [facility] ([facility] ) Body mass index (BMI) [Ratio] 52.5 kg/m2 52.5 k g/m2 [facility] ([facility] ) [place] body weight 130 [lb_av] 130 [lb_av] MEDEN T ([facility] ) Body height 66 [in_i] 66 [in_i] [facility] ([facility] ) 5'6" Body weight 325.00 [lb_av] 325.00 [lb_av] MED[facility] T ([facility] ) Respiratory rate 12 /min 12 /min [facility] ( [facility] ) Body weight 340 [lb_av] 340 [lb_av] eCW1 ([facility]) Body height 65 [in_i] 65 [in_i] eCW1 ([facility]) Body mass index (BMI) [Ratio] 56.57 kg/m2 56.57 kg/m2 eCW1 ([facility]) Heart rate 111 /min 111 /min eCW1 ([facility]) Respiratory rate 20 /min 20 /min eCW1 ([facility]) Body temperature 96.5 [degF] 96.5 [degF] eCW1 ( [facility]) Systolic blood pressure 130 mm[Hg] 130 mm[Hg] e CW1 ([facility]) Diastolic blood pressure 80 mm[Hg] 80 mm[Hg] eCW1 ([facility]) Body weight 340 [lb_av] 340 [lb_av] eCW1 ([facility]) Body height 65 [in_i] 65 [in_i] eCW1 ([facility]) Body mass index (BMI) [Ratio] 56.57 kg/m2 56.57 kg/m2 eCW1 ([facility]) Heart rate 116 /min 116 /min eCW1 ([facility]) Respiratory rate 18 /min 18 /min eCW1 ([facility]) Body temperature 96.4 [degF] 96.4 [degF] eCW1 ( [facility]) Systolic blood pressure 128 mm[Hg] 128 mm[Hg] e CW1 ([facility]) Diastolic blood pressure 80 mm[Hg] 80 mm[Hg] eCW1 ([facility]) Body weight 345 [lb_av] 345 [lb_av] eCW1 ([facility]) Body height 65 [in_i] 65 [in_i] eCW1 ([facility]) Body mass index (BMI) [Ratio] 57.40 kg/m2 57.40 kg/m2 eCW1 ([facility]) Heart rate 118 /min 118 /min eCW1 ([facility]) Respiratory rate 18 /min 18 /min eCW1 ([facility]) Body temperature 97.7 [degF] 97.7 [degF] eCW1 ( [facility]) Systolic blood pressure 152 mm[Hg] 152 mm[Hg] e CW1 ([facility]) Diastolic blood pressure 90 mm[Hg] 90 mm[Hg] eCW1 ([facility]) Body mass index (BMI) [Ratio] 54.1 kg/m2 54.1 k g/m2 [facility] ([facility]) Diastolic blood pressure 84 mm[Hg] 84 mm[Hg] [facility] ([facility]) Heart rate 71 /min 71 /min [facility] ([facility]) Systolic blood pressure 126 mm[Hg] 126 mm[Hg] M EDENT ([facility]) Body height 66.4 [in_i] 66.4 [in_i] [facility] ([facility]) 5'6.40" Body weight 339.25 [lb_av] 339.25 [lb_av] MEDEN T ([facility]) Oxygen saturation in Arterial blood by Pulse oximetry 96 % 96 % [facility] ([facility]) Patient Treatment Plan of Care Planned Activity Planned Date Details Description Data Source (s) Flonase Allergy Relief 50 MCG/ACT 04/02/2021 12:00:00 AM EDT eCW1 ([facility]) Flonase Allergy Relief 50 MCG/ACT 04/02/2021 12:00:00 AM EDT eCW1 ([facility]) fluticasone (FLONASE) 50 MCG/ACT nasal spray 04/02/2021 12:00:00 AM EDT [facility] Flonase Allergy Relief 50 MCG/ACT 04/02/2021 12:00:00 AM EDT eCW1 ([facility]) Flonase Allergy Relief 50 MCG/ACT 04/02/2021 12:00:00 AM EDT eCW1 ([facility]) Amitriptyline Hydrochloride 10 MG Oral Tablet 03/19/2021 12:00:00 A M EDT eCW1 ([facility]) clopidogrel 75 MG Oral Tablet 03/12/2021 12:00:00 AM EDT [facility] Cholecalciferol 1000 UNT Oral Tablet 01/15/2021 12:00:00 AM EDT [facility] latanoprost 0.05 MG/ML Ophthalmic Solution 01/10/2021 12:00:00 AM E DT [facility] carvedilol 25 MG Oral Tablet 01/04/2021 12:00:00 AM EDT [facility] Magnesium Oxide 400 MG Oral Tablet 01/03/2021 12:00:00 AM EDT [facility] 3 ML Insulin Lispro 100 UNT/ML Pen Injector [Humalog] 01/02/2021 12:00:00 AM EDT [facility] cinacalcet 30 MG Oral Tablet 01/02/2021 12:00:00 AM EDT [facility] glimepiride 4 MG Oral Tablet 12/03/2020 12:00:00 AM EST [facility] Simvastatin 80 MG Oral Tablet 12/01/2020 12:00:00 AM EST [facility] gabapentin 600 MG Oral Tablet 11/20/2020 12:00:00 AM EST [facility] 3 ML liraglutide 6 MG/ML Pen Injector [Victoza] 11/17/2020 12:00:00 AM EST [facility] Ergocalciferol 61210 UNT Oral Capsule 11/10/2020 12:00:00 AM EST [facility] Zofran ODT 4 MG 07/18/2020 12:00:00 AM EDT eCW1 ([facility]) Zofran ODT 4 MG 07/18/2020 12:00:00 AM EDT eCW1 ([facility]) Zofran ODT 4 MG 07/18/2020 12:00:00 AM EDT eCW1 ([facility]) Oxymetazoline HCl (NASAL SPRAY LONG ACTING NA) [facility] 60 ACTUAT exenatide 0.01 MG/ACTUAT Pen Injector [Byetta] [facility]
[2021-07-23] MEDS ORDERED: KETOROLAC 30 MG/ML 1ML VIAL IV ONE (03:30)
--- OUTSIDE RECORDS SUMMARY | 2021-07-23 04:55 | CCD ---
Author Author [facility] Organization [facility] Address Unknown Phone Unavailable Care Team Providers Care Musculoskeletal Physiotherapist Name Role Phone Justyna Henley PA-C Unavailable Unavailabl e Justyna Henley PA-C Unavailable Unavailabl e Justyna Henley PA-C Unavailable Unavailabl e Justyna Henley PA-C Unavailable Unavailabl e Justyna Henley, PA-C Unavailable Unavailabl e Fish, [facility], PA-C Unavailable Unavailabl e Fish, [facility], PA-C Unavailable Unavailabl e Fish, [facility], PA-C Unavailable Unavailabl e Fish, [facility], PA-C Unavailable Unavailabl e Fish, [facility], PA-C Unavailable Unavailabl e Fish, [facility], PA-C Unavailable Unavailabl e Fish, [facility], PA-C Unavailable Unavailabl e Fish, [facility], PA-C Unavailable Unavailabl e Fish, [facility], PA-C Unavailable Unavailabl e Fish, [facility], PA-C Unavailable Unavailabl e Fish, [facility], PA-C Unavailable Unavailabl e Fish, [facility], PA-C Unavailable Unavailabl e Fish, [facility], PA-C Unavailable Unavailabl e Fish, [facility], PA-C Unavailable Unavailabl e Fish, [facility], PA-C Unavailable Unavailabl e Fish, [facility], PA-C Unavailable Unavailabl e Fish, [facility], PA-C Unavailable Unavailabl e Fish, [facility], PA-C Unavailable Unavailabl e Fish, [facility], PA-C Unavailable Unavailabl e Fish, [facility], PA-C Unavailable Unavailabl e Fish, [facility], PA-C Unavailable Unavailabl e Fish, [facility], PA-C Unavailable Unavailabl e Fish, [facility], PA-C Unavailable Unavailabl e Fish, [facility], PA-C Unavailable Unavailabl e Fish, [facility], PA-C Unavailable Unavailabl e Fish, [facility], PA-C Unavailable Unavailabl e Fish, [facility], PA-C Unavailable Unavailabl e Fish, [facility], PA-C Unavailable Unavailabl e Fish, [facility], PA-C Unavailable Unavailabl e Fish, [facility], PA-C Unavailable Unavailabl e Fish, Justyna FRANK PA-C Unavailable Unavailabl e Lizeth Melgar MD Unavailable Unavailable Lizeth Melgar MD Unavailable Unavailable Lizeth Melgar MD Unavailable Unavailable Lizeth Melgar MD Unavailable Unavailable Lizeth Melgar MD Unavailable Unavailable Lizeth eMlgar MD Unavailable Unavailable Lizeth Melgar MD Unavailable [...] Unavailable Unavailable Lizeth Melgar MD Unavailable Unavailable Mir Means MD Unavailable Unavailable Mir Means MD Unavailable Unavailable Mir Means MD Unavailable Unavailable El-Khally, A Ziad MD [...] Ziad MD Unavailable Unavailable MAT, B MELECIO POINTER HELPER Unavailable Unavailable MAT, B MELECIO POINTER HELPER Unavailable Unavailable MAT, B MELECIO POINTER HELPER Unavailable Unavailable MAT, B MELECIO POINTER HELPER Unavailable Unavailable MAT, B MELECIO POINTER HELPER Unavailable Unavailable MAT, B MELECIO POINTER HELPER Unavailable Unavailable MAT, B MELECIO POINTER HELPER Unavailable Unavailable MAT, B MELECIO POINTER HELPER Unavailable Unavailable MAT, B MELECIO POINTER HELPER Unavailable Unavailable MAT, B MELECIO POINTER HELPER Unavailable Unavailable MAT, B MELECIO POINTER HELPER Unavailable Unavailable MAT, B MELECIO POINTER HELPER Unavailable Unavailable MAT, B MELECIO POINTER HELPER Unavailable Unavailable MAT, B MELECIO POINTER HELPER Unavailable Unavailable MAT, B MELECIO POINTER HELPER Unavailable Unavailable MAT, B MELECIO POINTER HELPER Unavailable Unavailable MAT, B MELECIO POINTER HELPER Unavailable Unavailable MAT, B MELECIO POINTER HELPER Unavailable Unavailable MAT, B MELECIO POINTER HELPER Unavailable Unavailable MAT, B MELECIO POINTER HELPER Unavailable Unavailable MAT, B MELECIO POINTER HELPER Unavailable Unavailable MAT, B MELECIO POINTER HELPER Unavailable Unavailable MAT, B MELECIO POINTER HELPER Unavailable Unavailable MAT, B MELECIO POINTER HELPER Unavailable Unavailable MAT, B MELECIO POINTER HELPER Unavailable Unavailable MAT, B MELECIO POINTER HELPER Unavailable Unavailable MAT, B MELECIO POINTER HELPER Unavailable Unavailable MAT, B MELECIO POINTER HELPER Unavailable Unavailable MAT, B MELECIO POINTER HELPER Unavailable Unavailable MAT, B MELECIO POINTER HELPER Unavailable Unavailable MAT, B MELECIO POINTER HELPER Unavailable Unavailable MAT, B MELECIO POINTER HELPER Unavailable Unavailable MAT, B MELECIO POINTER HELPER Unavailable Unavailable MAT, B MELECIO POINTER HELPER Unavailable Unavailable MAT, B MELECIO POINTER HELPER Unavailable Unavailable MAT, B MELECIO POINTER HELPER Unavailable Unavailable MAT, B MELECIO POINTER HELPER Unavailable Unavailable MAT, B MELECIO POINTER HELPER Unavailable Unavailable MAT, B MELECIO POINTER HELPER Unavailable Unavailable MAT, B MELECIO POINTER HELPER Unavailable Unavailable MAT, B MELECIO POINTER HELPER Unavailable Unavailable MAT, B MELECIO POINTER HELPER Unavailable Unavailable MAT, B MELECIO POINTER HELPER Unavailable Unavailable MAT, B MELECIO POINTER HELPER Unavailable Unavailable MAT, B MELECIO POINTER HELPER Unavailable Unavailable MAT, B MELECIO POINTER HELPER Unavailable Unavailable MAT, B MELECIO POINTER HELPER Unavailable Unavailable MAT, B MELECIO POINTER HELPER Unavailable Unavailable MAT, B MELECIO POINTER HELPER Unavailable Unavailable MAT, B MELECIO POINTER HELPER Unavailable Unavailable MAT, B MELECIO POINTER HELPER Unavailable Unavailable MAT, B MELECIO POINTER HELPER Unavailable Unavailable MAT, B MELECIO POINTER HELPER Unavailable Unavailable MAT, B MELECIO POINTER HELPER Unavailable Unavailable MAT, B MELECIO POINTER HELPER Unavailable Unavailable MAT, B MELECIO POINTER HELPER Unavailable Unavailable MAT, B MELECIO POINTER HELPER Unavailable Unavailable MAT, B MELECIO POINTER HELPER Unavailable Unavailable MAT, B MELECIO POINTER HELPER Unavailable Unavailable MAT, B MELECIO POINTER HELPER Unavailable Unavailable MAT, B EMLECIO POINTER HELPER Unavailable Unavailable MAT, B MELECIO POINTER HELPER Unavailable Unavailable Ivy, M Barratt PA Unavailable [...] Unavailable Ivy, M Barratt PA Unavailable Unavailable Cataño, V BRAD PA-C Unavailable Unavailable Pankaj, V BRAD PA-C Unavailable Unavailable Pankaj, V BRAD PA-C Unavailable Unavailable Cataño, V BRAD PA-C Unavailable Unavailable Cataño, V BRAD PA-C Unavailable Unavailable Cataño, V BRAD PA-C Unavailable Unavailable Cataño, V BRAD PA-C Unavailable Unavailable Cataño, V BRAD PA-C Unavailable Unavailable Pankaj, V BRAD PA-C Unavailable Unavailable Cataño, V BRAD PA-C Unavailable Unavailable Cataño, V BRAD PA-C Unavailable Unavailable Cataño, V BRAD PA-C Unavailable Unavailable Cataño, V BRAD PA-C Unavailable Unavailable Cataño, V BRAD PA-C Unavailable Unavailable iMr Jang MD Unavailable Unavailable Mir Jang MD Unavailable Unavailable Mir Jang MD Unavailable Unavailable Mir Jang MD Unavailable Unavailable Laine, A Anil WELLINGTON [...] Anil WELLINGTON Unavailable Unavailable Laine, A Anil MD Unavailable Unavailable Laine, Mir Ma MD [...] Mir Ma MD Unavailable Unavailable Laine, Mir aM MD Unavailable Unavailable Laine, Mir Ma MD [...] is protected by Article 27-F of the [facility] Public Health law. If you continue you may have access to information: Regarding HIV / AIDS; Provided by facilities licensed or operated by the [facility] Office of Mental Health; or Provided by the [place] Office for People With Developmental Disabilities. If such information is present, then the following [facility] mandated warning applies: This information has been [...] law may result in a fine or correction sentence or both. A general authorization for the release of medical or other information is NOT sufficient authorization for further disc losure. Family History Family Member Name Family Member Gender Family Member Status Date o f Status Description Data Source(s) Unknown Unknown Problem [facility] ([facility] Unknown Male Problem MEDENT ([facility]) Unknown Unknown Problem MEDENT ([facility]) Encounters Encounter Providers Location Date Indications Data Source(s ) Office Visit Attender: Niesha FRANK PA-C Physical Therapy 07/22/2021 01:15:00 PM EDT MEDENT ([facility]) Office Visit, Est Pt., Level 3 PC [address] [place] [address] 04/30/2021 12:00:00 AM EDT eCW1 ([facility]) Unknown [address] [facility] [address] 04/29/2021 12:00:00 AM EDT eCW1 ([facility]) Unknown [address] [facility] [address] 04/11/2021 12:00:00 AM EDT eCW1 ([facility]) Outpatient Attender: BRAD Lira PA-C [email or web address] 12:00:00 AM EDT - 04/09/2021 08:25:28 AM EDT Health system Outpatient [address] [facility] [id number] 04/02/2021 12:00:00 AM EDT eCW1 ([facility]) Unknown [address] [facility] [address] 04/02/2021 12:00:00 AM EDT eCW1 ([facility]) Outpatient Attender: Nereyda Means MDA dmitter: Nereyda Means MDReferrer: Nereyda Means MD [email or web address] 03/28/2021 06:59:00 AM EDT - 03/28/2021 01:08:00 PM EDT Health system Patient discharged. Outpatient [address] [facility] [place] [address] 03/19/2021 12:00:00 AM EDT eCW1 ([facility]) Outpatient Attender: BRAD RODGERSSHONDA-[email or web address].[email or web address] 12:00:00 AM EDT - 03/12/2021 09:03:36 AM EDT Health system Outpatient Attender: MELECIO RIVERO NP Physical Therapy 09:15:00 AM EDT MEDENT ([facility]) Outpatient Referrer: Yaz [email or web address] 04/2021 12:06:40 PM EDT - 03/05/2021 02:05:28 PM EDT [facility] Outpatient Attender: Mildred Richard MD [facility] 02/14/2021 01:00:00 PM EDT MEDENT ([facility]) Outpatient Attender: Yaz Salinas MDReferrer: Evin LAMAR.[email or web address] 01/24/2021 02:48:45 PM EDT - 01/24/2021 04:09:53 PM EDT Health system Outpatient Referrer: Bairon Melgar MD [email or web address] 01/24/20 08:29:04 AM EDT - 01/23/2021 08:29:07 AM EDT [facility] Office Visit Attender: Niesha FRANK PA-C Physical Therapy 01/17/2021 09:45:00 AM EDT MED[facility] ([facility]) Outpatient [address] [facility] [place] [address] 01/15/2021 12:00:00 AM EDT eCW1 ([facility]) Outpatient Attender: Bairon Melgar MDAdmit ter: Bairon Melgar MDReferrer: Bairon Melgar MD [email or web address] 12/25/2020 02:28:12 PM EDT - 01/28/2021 12:03:00 PM EDT Health system Patient discharged. Outpatient [address] [facility] [place] [address] 12/11/2020 12:00:00 AM EDT eCW1 [facility] Outpatient Attender: MELECIO RIVERO NP Physical Therapy 09:30:00 AM EST MEDENT ([facility]) OFFICE OUTPATIENT VISIT 15 MINUTES Attender: Niesha FRANK PA-C Physical Therapy 11/30/2020 01:15:00 PM EST MED[facility] ([facility]) Outpatient [address] [facility] [place] [address] 11/13/2020 12:00:00 AM EST eCW1 ([facility]) Unknown [address] [facility] [place] [address] 11/05/2020 12:00:00 AM EST eCW1 ([facility]) Unknown [address] [facility] [place] [address] 10/23/2020 12:00:00 AM EST eCW1 ([facility]) Unknown [address] [facility] [place] [address] 10/16/2020 12:00:00 AM EST eCW1 ([facility]) Unknown [address] [facility] [place] [address] 10/09/2020 12:00:00 AM EST eCW1 ([facility]) Outpatient [address] [facility] [place] [address] 10/01/2020 12:00:00 AM EST eCW1 ([facility]) Unknown [address] [facility] [place] [address] 10/01/2020 12:00:00 AM EST eCW1 ([facility]) Office Visit Attender: Mildred Richard MD Main office - [facility] 09/25/2020 01:45:00 PM EST MEDENT ([facility]) Unknown [address] [facility] [place] [address] 09/10/2020 12:00:00 AM EST eCW1 ([facility]) Unknown [address] [facility] [place] [address] 09/09/2020 12:00:00 AM EST eCW1 ([facility]) Outpatient Attender: MELECIO RIVERO NP Physical Therapy 12:15:00 PM EST MED[facility] ([facility]) Outpatient [address] [facility] [place] [address] 08/21/2020 12:00:00 AM EST eCW1 ([facility]) OFFICE OUTPATIENT VISIT 15 MINUTES Attender: Niesha FRANK PA-C Physical Therapy 08/17/2020 05:00:00 PM EST MED[facility] ([facility]) Outpatient [address] [facility] [place] [address] 08/06/2020 12:00:00 AM EST eCW1 ([facility]) Outpatient [address] [facility] [place] [address] 07/18/2020 12:00:00 AM EDT eCW1 ([facility]) Unknown [address] [facility] [place] [address] 07/18/2020 12:00:00 AM EDT eCW1 ([facility]) Unknown [address] [facility] [place] [address] 07/18/2020 12:00:00 AM EDT eCW1 ([facility]) Outpatient [address] [facility] [place] [address] 06/27/2020 12:00:00 AM EDT eCW1 ([facility]) Outpatient Attender: Lorenzo BELLAMY Physical Therapy 01:00:00 PM EDT MEDENT ([facility]) Outpatient Attender: MELECIO RIVERO NP Physical Therapy 02:15:00 PM EDT MEDENT ([facility]) Immunizations Vaccine Date Status Description Data Source(s) COVID-19 VACCINE Moderna 11/15/2020 12:00:00 AM EST completed [facility] Vaccine Series Complete: YESThis Data wa s Submitted to [facility] Via SUPR. 11/15/2020 12:00:00 AM EST completed <td I D="[id number]">Covid-19 (Moderna)</td><td>11/15/2020, 10/18/2020</td><td></td> Health system COVID-19 VACCINE Moderna 10/18/2020 12:00:00 AM EST completed [facility] Vaccine Series Complete: NOThis Data was Submitted to [facility] Via SUPR. 10/18/2020 12:00:00 AM EST completed <td I D="[id number]">Covid-19 (Moderna)</td><td>11/15/2020, 10/18/2020</td><td></td> Health system influenza, recombinant, quadrIvalent,injectable, prese rvative free 06/27/2020 04:07:00 PM EDT completed eCW1 ([facility]) influenza, recombinant, quadrIvalent,injectable, prese rvative free 06/27/2020 04:07:00 PM EDT completed eCW1 ([facility]) influenza, recombinant, quadrIvalent,injectable, prese rvative free 06/27/2020 04:07:00 PM EDT completed eCW1 ([facility]) influenza, recombinant, quadrIvalent,injectable, prese rvative free 06/27/2020 04:07:00 PM EDT completed eCW1 ([facility]) influenza, recombinant, quadrIvalent,injectable, prese rvative free 06/27/2020 04:07:00 PM EDT completed eCW1 ([facility]) influenza, recombinant, quadrIvalent,injectable, prese rvative free 06/27/2020 04:07:00 PM EDT completed eCW1 ([facility]) influenza, recombinant, quadrIvalent,injectable, prese rvative free 06/27/2020 04:07:00 PM EDT completed eCW1 ([facility]) influenza, recombinant, quadrIvalent,injectable, prese rvative free 06/27/2020 04:07:00 PM EDT completed eCW1 ([facility]) influenza, recombinant, quadrIvalent,injectable, prese rvative free 06/27/2020 04:07:00 PM EDT completed eCW1 ([facility]) influenza, recombinant, quadrIvalent,injectable, prese rvative free 06/27/2020 04:07:00 PM EDT completed eCW1 ([facility]) influenza, recombinant, quadrIvalent,injectable, prese rvative free 06/27/2020 04:07:00 PM EDT completed eCW1 ([facility]) influenza, recombinant, quadrIvalent,injectable, prese rvative free 06/27/2020 04:07:00 PM EDT completed eCW1 ([facility]) influenza, recombinant, quadrIvalent,injectable, prese rvative free 06/27/2020 04:07:00 PM EDT completed eCW1 ([facility]) influenza, recombinant, quadrIvalent,injectable, prese rvative free 06/27/2020 04:07:00 PM EDT completed eCW1 ([facility]) influenza, recombinant, quadrIvalent,injectable, prese rvative free 06/27/2020 04:07:00 PM EDT completed eCW1 ([facility]) influenza, recombinant, quadrIvalent,injectable, prese rvative free 06/27/2020 04:07:00 PM EDT completed eCW1 ([facility]) influenza, recombinant, quadrIvalent,injectable, prese rvative free 06/27/2020 04:07:00 PM EDT completed eCW1 ([facility]) influenza, recombinant, quadrIvalent,injectable, prese rvative free 06/27/2020 04:07:00 PM EDT completed eCW1 ([facility]) influenza, recombinant, quadrIvalent,injectable, prese rvative free 06/27/2020 04:07:00 PM EDT completed eCW1 ([facility]) influenza, recombinant, quadrIvalent,injectable, prese rvative free 06/27/2020 04:07:00 PM EDT completed eCW1 ([facility]) influenza, recombinant, quadrIvalent,injectable, prese rvative free 06/27/2020 04:07:00 PM EDT completed eCW1 ([facility]) influenza, recombinant, quadrIvalent,injectable, prese rvative free 06/27/2020 04:07:00 PM EDT completed eCW1 ([facility]) influenza, recombinant, quadrIvalent,injectable, prese rvative free 06/27/2020 04:07:00 PM EDT completed eCW1 ([facility]) Pneumococcal conjugate PCV 06/27/2020 02:09:00 PM EDT [facility] Pneumococcal conjugate PCV 06/27/2020 02:09:00 PM EDT completed [facility]) Pneumococcal conjugate PCV 06/27/2020 02:09:00 PM EDT completed [facility]CW[facility]) Pneumococcal conjugate PCV 06/27/2020 02:09:00 PM EDT completed eCW1 [facility]) Pneumococcal conjugate PCV 06/27/2020 02:09:00 PM EDT completed eCW1 [facility]) Pneumococcal conjugate PCV 06/27/2020 02:09:00 PM EDT completed eCW1 ([facility]) Pneumococcal conjugate PCV 06/27/2020 02:09:00 PM EDT completed eCW1 [facility]) Pneumococcal conjugate PCV 06/27/2020 02:09:00 PM EDT completed eCW1 [facility]) Pneumococcal conjugate PCV 06/27/2020 02:09:00 PM EDT completed eCW1 [facility]) Pneumococcal conjugate PCV 06/27/2020 02:09:00 PM EDT completed eCW1 [facility]) Pneumococcal conjugate PCV 13 06/27/2020 02:09:00 PM EDT completed eCW1 [facility]) Pneumococcal conjugate PCV 13 06/27/2020 02:09:00 PM EDT completed eCW1 [facility]) Pneumococcal conjugate PCV 13 06/27/2020 02:09:00 PM EDT completed eCW1 [facility]) Pneumococcal conjugate PCV 13 06/27/2020 02:09:00 PM EDT completed eCW1 ([facility]) Pneumococcal conjugate PCV 13 06/27/2020 02:09:00 PM EDT completed eCW1 ([facility]) Pneumococcal conjugate PCV 13 06/27/2020 02:09:00 PM EDT completed eCW1 ([facility]) Pneumococcal conjugate PCV 13 06/27/2020 02:09:00 PM EDT completed eCW1 ([facility]) Pneumococcal conjugate PCV 13 06/27/2020 02:09:00 PM EDT completed eCW1 ([facility]) Pneumococcal conjugate PCV 13 06/27/2020 02:09:00 PM EDT completed eCW1 ([facility]) Pneumococcal conjugate PCV 13 06/27/2020 02:09:00 PM EDT completed eCW1 ([facility]) Pneumococcal conjugate PCV 13 06/27/2020 02:09:00 PM EDT completed eCW1 ([facility]) Pneumococcal conjugate PCV 13 06/27/2020 02:09:00 PM EDT completed eCW1 ([facility]) Pneumococcal conjugate PCV 13 06/27/2020 02:09:00 PM EDT completed eCW1 [facility]) Medications Medication Brand Name Start Date Product Form Dose Route Admi nistrative Instructions Pharmacy Instructions Status Indications Reaction Description Data Source(s) 6 ML HYLAN G-F 20 8 MG/ML Prefilled Syringe [Synvisc] Synvis c One 07/22/2021 12:00:00 AM EDT active M EDENT ([facility]) 29 gauge x 1/2" 07/13/2021 12:00:00 AM [...] Prednisone 04/03/2021 12:00:00 AM EDT active MEDENT ([facility], ) Flonase Allergy Relief 50 MCG/ACT Flonase Allergy Relief 50 MCG/ACT 04/02/2021 12:00:00 AM EDT active Flonase Allergy Relief 50 MCG/ACT [facility]) Flonase Allergy Relief 50 MCG/ACT Flonase Allergy Relief 50 MCG/ACT 04/02/2021 12:00:00 AM EDT active Flonase Allergy Relief 50 MCG/ACT eCW1 [facility]) Flonase Allergy Relief 50 MCG/ACT Flonase Allergy Relief 50 MCG/ACT 04/02/2021 12:00:00 AM EDT active Flonase Allergy Relief 50 MCG/ACT eCW1 ([facility]) 50 mcg/actuation 04/02/2021 12:00:00 AM EDT spray,suspension 16 SPRAY TWO SPRAYS IN EACH NOSTRIL EVERY DAY SPRAY TWO SPRAYS IN EACH NOSTRIL EVERY DAY SOLD: 04/02/2021 [facility] Fluticasone propionate 0.05 MG/ACTUAT Metered Dose [place] 50 mcg/actuation FLUTICASONE PROPIONATE 04/02/2021 12:00:00 AM [...] Drugs fluticasone (FLONASE) 50 MCG/ACT nasal spray 8617-7024-62 04/02/2021 12:00:00 AM EDT active SPRAY TWO SPRAYS IN EACH NOSTRIL EVERY DAY Health system Fluticasone propionate 0.05 MG/ACTUAT Metered Dose [place] [facility] [place] 50 mcg/actuation FLUTICASONE PROPIONATE 04/02/2021 12:00:00 AM EDT spray,suspension 16 SPRAY TWO SPRAYS IN EACH NOSTRIL EVERY DAY SPRAY TWO SPRAYS IN EACH NOSTRIL EVERY DAY SOLD: 06/12/2021 [facility] Flonase Allergy Relief 50 MCG/ACT Flonase Allergy Relief 50 MCG/ACT 04/02/2021 12:00:00 AM EDT active Flonase Allergy Relief 50 MCG/ACT eCW1 ([facility]) Flonase Allergy Relief 50 MCG/ACT Flonase Allergy Relief 50 MCG/ACT 04/02/2021 12:00:00 AM EDT active Flonase Allergy Relief 50 MCG/ACT eCW1 ([facility]) Fluticasone propionate 0.05 MG/ACTUAT Metered Dose [place] [facility] [place] 50 mcg/actuation FLUTICASONE PROPIONATE 04/02/2021 12:00:00 AM [...] HCL 03/26/2021 12:00:00 AM EDT completed MEDENT ([facility] ) 0.005 % 03/26/2021 12:00:00 AM EDT drops 7 INSTILL ONE DROP INTO BOTH EYES EVERY NIGHT INSTILL ONE DROP INTO BOTH EYES EVERY NIGHT SOLD: 06/12/2021 [facility] 0.005 % 03/26/2021 12:00:00 AM EDT drops 7 INSTILL ONE DROP INTO BOTH EYES EVERY NIGHT INSTILL ONE DROP INTO BOTH EYES EVERY NIGHT SOLD: 03/29/2021 [facility] 30 mg 03/22/2021 12:00:00 AM EDT tablet [...] TIMES PER WEEK, THURSDAY THROUGH THURSDAY SOLD: 04/17/2021 [facility] 30 mg 03/22/2021 [...] active Amitriptyline HCl 10 MG e 1 ([facility] 10 mg 03/19/2021 12:00:00 AM EDT tablet [...] (300mg total) the night before the procedure. Health system 75 mg 03/12/2021 12:00:00 AM EDT tablet [...] 1 TO 3 HOURS BEFORE BEDTIME VONNIE [facility] 0.6 mg/0.1 mL (18 mg/3 mL) [...] Take 1,0 00 Units by mouth daily Health system latanoprost 0.05 MG/ML Ophthalmic Soluti on latanoprost (XALATAN) 0.005 % ophthalmic solution latanoprost (XALATAN) 0.005 % ophthalmic solution 12/27 12:00:00 AM EDT active INSTILL ONE DROP INTO BOTH EYES EVERY NIGHT Health system carvedilol 25 MG Oral Tablet carvedilol (COREG) 25 MG tablet carvedilol (COREG) 25 MG tablet 01/04/2021 12:00:00 AM EDT 25 mg Oral activ e Take 25 mg by mouth 2 (two) times a day Health system Magnesium Oxide 400 MG Oral Tablet magnesium oxide (MA G-OX) 400 MG tablet magnesium oxide (MAG-OX) 400 MG tablet 01/03/2021 12:00:00 AM EDT active TAKE TWO TABLETS BY MOUTH TWICE A DAY Health system 100 unit/mL 01/02/2021 12:00:00 AM EDT insulin pen 45 INJECT UNDER SKIN DIRECTED PER SLIDING SCALE MAX 53UNITS/DAY INJECT UNDER SKIN DIRECTED PER SLIDING SCALE MAX 53UNITS/DAY SOLD: 01/02/2021 [facility] cinacalcet 30 MG Oral Tablet cinacalcet (SENSIPAR) 30 MG tablet cinacalcet (SENSIPAR) 30 MG tablet 01/02/2021 12:00:00 AM EDT active TAKE 1 TABLET BY MOUTH 5 TIMES PER WEEK THURSDAY THROUGH THURSDAY Health system 3 ML Insulin Lispro 100 UNT/ML Pen Injec tor [Humalog] HumaLOG KwikPen 100 UNIT/ML SOPN HumaLOG KwikPen 100 UNIT/ML SOPN 01/02/2021 12:00:00 AM EDT active INJECT UNDER SKIN DIRE CTED PER SLIDING SCALE MAX 53UNITS/DAY Health system 100 unit/mL 01/02/2021 12:00:00 AM EDT insulin pen 45 INJECT UNDER SKIN DIRECTED PER SLIDING SCALE MAX 53UNITS/DAY INJECT UNDER SKIN DIRECTED PER SLIDING SCALE MAX 53UNITS/DAY SOLD: 05/15/2021 [facility] glimepiride 4 MG Oral Tablet GLIMEPIRIDE 12/03/2020 12:00:00 AM EST t ablet 180 TAKE ONE TABLET BY MOUTH TWICE A DAY TAKE ONE TABLET BY MOUT H TWICE A DAY SOLD: 03/01/2021 [facility] glimepiride 4 MG Oral Tablet glimepiride (AMARYL) 4 MG tablet glimepiride (AMARYL) 4 MG tablet 12/03/2020 12:00:00 AM EST 4 mg Oral active Take 4 mg by mouth 2 (two) times a day Health system glimepiride 4 MG Oral Tablet GLIMEPIRIDE 12/03/2020 12:00:00 AM EST t ablet 180 TAKE ONE TABLET BY MOUTH TWICE A DAY TAKE ONE TABLET BY MOUT H TWICE A DAY SOLD: 12/03/2020 [facility] 80 mg 12/01/2020 12:00:00 AM EST tablet 90 TAKE ONE TABLET BY MOUTH EVERY DAY IN THE EVENING TAKE ONE TABLET BY MOUTH EVERY DAY IN THE EVENING SOLD : 12/01/2020 [facility] Simvastatin 80 MG Oral Tablet simvastatin (ZOCOR) 80 M G tablet simvastatin (ZOCOR) 80 MG tablet 12/01/2020 12:00:00 AM EST 80 mg Oral active Take 80 mg by mouth Health system gabapentin 600 MG Oral Tablet gabapentin (NEURONTIN) 6 00 MG tablet gabapentin (NEURONTIN) 600 MG tablet 11/20/2020 12:00:00 AM EST 600 mg Oral active Take 600 mg by mouth 3 (three) times a day [facility] 600 mg 11/20/2020 12:00:00 AM EST tablet 270 TAKE ONE TABLET BY MOUTH THREE TIMES A DAY TAKE ONE TABLET BY MOUTH THREE TIMES A DAY SOLD: 11/20/2020 [facility] 3 ML liraglutide 6 MG/ML Pen Injector [Victoza] Victoz a 18 MG/3ML SOPN Victoza 18 MG/3ML SOPN 11/17/2020 12:00:00 AM EST act vero INJECT 1.8MG UNDER SKIN ONCE DAILY Health system 1,250 mcg (50,000 unit) 11/10/2020 12:00:00 AM EST capsule 6 TAKE 1 CAPSULE BY MOUTH EVERY WEEK FOR 6 WEEKS TAKE 1 CAPSULE BY MOUTH EVERY WEEK FOR 6 WEEKS SOLD: 11/11/2020 [facility] Ergocalciferol 70935 UNT Oral Capsule vi tamin D, Ergocalciferol, 1.25 MG (49581 UT) CAPS vitamin D, Ergocalciferol, 1.25 MG (23370 UT) CAPS 12:00:00 AM EST aborted TAKE 1 CAPSULE B Y MOUTH EVERY WEEK FOR 6 WEEKS Health system carvedilol 25 MG Oral Tablet CARVEDILOL 11/08/2020 12:00:00 AM EST tab let 60 TAKE 1 TABLET BY MOUTH TWICE A DAY TAKE 1 TABLET BY MOUTH TWICE A DAY SOLD: 12/07/2020 [facility] carvedilol 25 MG Oral Tablet CARVEDILOL 11/08/2020 12:00:00 AM EST tab let 60 TAKE 1 TABLET BY MOUTH TWICE A DAY TAKE 1 TABLET BY MOUTH TWICE A DAY SOLD: 04/03/2021 [employer] carvedilol 25 MG Oral Tablet CARVEDILOL 11/08/2020 12:00:00 AM EST tab let 60 TAKE 1 TABLET BY MOUTH TWICE A DAY TAKE 1 TABLET BY MOUTH TWICE A DAY SOLD: 03/07/2021 [facility] carvedilol 25 MG Oral Tablet CARVEDILOL 11/08/2020 12:00:00 AM EST tab let 60 TAKE 1 TABLET BY MOUTH TWICE A DAY TAKE 1 TABLET BY MOUTH TWICE A DAY SOLD: 11/08/2020 [facility] carvedilol 25 MG Oral Tablet CARVEDILOL 11/08/2020 12:00:00 AM EST tab let 60 TAKE 1 TABLET BY MOUTH TWICE A DAY TAKE 1 TABLET BY MOUTH TWICE A DAY SOLD: 02/05/2021 [facility] carvedilol 25 MG Oral Tablet CARVEDILOL [...] TIMES PER WEEK, THURSDAY THROUGH THURSDAY SOLD: 10/16/2020 [facility] carvedilol 25 MG [...] MOUTH 5 TIMES PER WEEK, Thursday SOLD: 01/28/2021 [facility] 400 mg (241.3 [...] TIMES PER WEEK, THURSDAY THROUGH THURSDAY SOLD: 01/02/2021 [facility] 30 mg 10/16/2020 [...] EVERY MORNING MAX 150UNITS/DAY SOLD: 02/07/2021 [facility] 29 gauge x 1/2" 10/09/2020 12:00:00 AM [...] Dawn 07/30/2020 12:00:00 AM EST active MEDENT ([facility]) 1 mg 07/19/2020 12:00:00 AM [...] {tablet_on_the_tongue_and_allow_to_dissolve} active Zofran ODT 4 MG [facility] Zofran ODT 4 MG UNK 07/18/2020 12:00:00 AM EDT 1.0 {tablet_on_the_tongue_and_allow_to_dissolve} active Zofran ODT 4 MG eCW1 ([facility]) Zofran ODT 4 MG UNK 07/18/2020 12:00:00 AM EDT 1.0 {tablet_on_the_tongue_and_allow_to_dissolve} active Zofran ODT 4 MG eCW1 ([facility]) Zofran ODT 4 MG UNK 07/18/2020 12:00:00 AM EDT 1.0 {tablet_on_the_tongue_and_allow_to_dissolve} active Zofran ODT 4 MG eCW1 ([facility]) Zofran ODT 4 MG UNK 07/18/2020 12:00:00 AM EDT 1.0 {tablet_on_the_tongue_and_allow_to_dissolve} active Zofran ODT 4 MG eCW1 ([facility]) Zofran ODT 4 MG UNK 07/18/2020 12:00:00 AM EDT 1.0 {tablet_on_the_tongue_and_allow_to_dissolve} active Zofran ODT 4 MG eCW1 ([facility]) Zofran ODT 4 MG UNK 07/18/2020 12:00:00 AM EDT 1.0 {tablet_on_the_tongue_and_allow_to_dissolve} active Zofran ODT 4 MG eCW1 ([facility]) Zofran ODT 4 MG UNK 07/18/2020 12:00:00 AM EDT 1.0 {tablet_on_the_tongue_and_allow_to_dissolve} active Zofran ODT 4 MG eCW1 ([facility]) Zofran ODT 4 MG K 07/18/2020 12:00:00 AM EDT 1.0 {tablet_on_the_tongue_and_allow_to_dissolve} active Zofran ODT 4 MG eCW1 ([facility]) Zofran ODT 4 MG K 07/18/2020 12:00:00 AM EDT 1.0 {tablet_on_the_tongue_and_allow_to_dissolve} active Zofran ODT 4 MG eCW1 ([facility]) Zofran ODT 4 MG [facility] 07/18/2020 12:00:00 AM EDT 1.0 {tablet_on_the_tongue_and_allow_to_dissolve} active Zofran ODT 4 MG eCW1 ([facility]) Zofran ODT 4 MG [facility] 07/18/2020 12:00:00 AM EDT 1.0 {tablet_on_the_tongue_and_allow_to_dissolve} active Zofran ODT 4 MG eCW1 ([facility]) Zofran ODT 4 MG K 07/18/2020 12:00:00 AM EDT 1.0 {tablet_on_the_tongue_and_allow_to_dissolve} active Zofran ODT 4 MG eCW1 ([facility]) Zofran ODT 4 MG K 07/18/2020 12:00:00 AM EDT 1.0 {tablet_on_the_tongue_and_allow_to_dissolve} active Zofran ODT 4 MG eCW1 ([facility]) Zofran ODT 4 MG K 07/18/2020 12:00:00 AM EDT 1.0 {tablet_on_the_tongue_and_allow_to_dissolve} active Zofran ODT 4 MG eCW1 ([facility]) Zofran ODT 4 MG K 07/18/2020 12:00:00 AM EDT 1.0 {tablet_on_the_tongue_and_allow_to_dissolve} active Zofran ODT 4 MG eCW1 ([facility]) Zofran ODT 4 MG K 07/18/2020 12:00:00 AM EDT 1.0 {tablet_on_the_tongue_and_allow_to_dissolve} active Zofran ODT 4 MG eCW1 ([facility]) Zofran ODT 4 MG [facility] 07/18/2020 12:00:00 AM EDT 1.0 {tablet_on_the_tongue_and_allow_to_dissolve} active Zofran ODT 4 MG eCW1 ([facility]) Zofran ODT 4 MG [facility] 07/18/2020 12:00:00 AM EDT 1.0 {tablet_on_the_tongue_and_allow_to_dissolve} active Zofran ODT 4 MG eCW1 ([facility]) 4 mg 07/18/2020 12:00:00 AM EDT tablet,disintegrating 1 2 ALLOW 1 TABLET TO DISSOLVE ON THE TONGUE EVERY 8 HOURS NEEDED FOR NAUSEA AND VOMITING FOR 4 DAYS ALLOW 1 TABLET TO DISSOLVE ON THE TONGUE EVERY 8 HOURS NEEDED FOR NAUSEA AND VOMITING FOR 4 DAYS SOLD: 07/18/2020 [facility] Zofran ODT 4 MG [facility] 07/18/2020 12:00:00 AM EDT 1.0 {tablet_on_the_tongue_and_allow_to_dissolve} active Zofran ODT 4 MG eCW1 ([facility]) Zofran ODT 4 MG [facility] 07/18/2020 12:00:00 AM EDT 1.0 {tablet_on_the_tongue_and_allow_to_dissolve} active Zofran ODT 4 MG eCW1 ([facility]) Zofran ODT 4 MG [facility] 07/18/2020 12:00:00 AM EDT 1.0 {tablet_on_the_tongue_and_allow_to_dissolve} active Zofran ODT 4 MG eCW1 [facility]) 4 mg 07/11/2020 12:00:00 AM EDT tablet [...] Golytely 07/10/2020 12:00:00 AM EDT active MEDENT ([facility], ) Magnesium Hydroxide 80 MG/ML Oral Suspension Milk Of Magnesi a 07/10/2020 12:00:00 AM EDT ORAL active M EDENT ([facility], ) 33 gauge 07/03/2020 12:00:00 AM EDT [...] 07/02/2020 12:00:00 AM EDT activ e MEDENT ([facility]) Fora Blood Glucose Test 07/02/2020 12:00:00 AM EDT active [facility] ([facility]) 200 unit/mL (3 mL) 06/26/2020 12:00:00 AM [...] BY MOUTH TWICE A DAY SOLD: 08/22/2020 [facility] carvedilol 25 MG Oral Tablet CARVEDILOL 04/30/2020 12:00:00 AM EDT tab let 60 TAKE 1 TABLET BY MOUTH TWICE A DAY TAKE 1 TABLET BY MOUTH TWICE A DAY SOLD: 05/30/2020 [facility] 29 gauge x 1/2" 04/16/2020 12:00:00 AM EDT needle 600 USE DIRECTED 6 TIMES A DAY MAXIMUM DAILY DOSE = 6 USE DIRECTED 6 TIMES A DAY MAXIMUM DA DENISE DOSE = 6 SOLD: 07/13/2020 [facility] 300 mg 03/15/2020 12:00:00 AM EDT tablet 90 TAKE ONE TABLET BY MOUTH EVERY DAY TAKE ONE TABLET BY MOUTH EVERY DAY SOLD: 06/12/2020 [facility] 100 unit/mL (3 mL) 03/13/2020 12:00:00 AM EDT insulin pen 15 INJECT DIRECTED MAXIMUM DAILY DOSE = 53 UNITS INJECT DIRECTED MAXIMUM DAILY DOSE = 53 UNITS SOLD: 06/05/2020 [facility] 80 mg 12/17/2019 12:00:00 AM EDT tablet 90 TAKE ONE TABLET BY MOUTH EVERY EVENING TAKE ONE TABLET BY MOUTH EVERY EVENING SOLD: 06/12/2020 [facility] Oxymetazoline HCl (NASAL SPRAY LONG ACTING NA) drug or medication Nasal aborted into each nostril [facility] 60 ACTUAT exenatide 0.01 MG/ACTUAT Pen I njector [Byetta] Exenatide (Byetta 10 MCG Pen) 10 MCG/0.04ML SOPN Exenatide (Byetta 10 MCG Pen) 10 MCG/0.04ML SOPN Subcutaneous aborted Inject unde r the skin Health system Insurance Providers Payer name Policy type / Coverage type Policy ID Covered constitution party ID Covered constitution party's relationship to gunn Policy Gunn Plan Information MEDICARE [id number] SP [id number] MEDICARE [id number] Lida [id number] MEDICARE [id number] Lida [id number] MEDICARE A [id number] Self [id number] MEDICARE [id number] MEDICARE [id number] SP [id number] A MEDICAID [id number] SP [id number] [place] [id number] Self 1 [id number] Medicare [place] Medicare Primary [id number] Self 1 [id number] [place] Medicare Primary [id number] Self 0 [id number] Medicare [place] Medicare Primary [id number] Self [id number] [place] Medicare Primary [id number] Self [id number] [place] Medicare Primary [id number] Self 1 [id number] [place] Medicare Primary [id number] Self 1 [id number] Medicare [place] Medicare Primary [id number] Self 1 [id number] Medicare [place] Medicare Primary [id number] Self 1 [id number] Medicare [place] Medicare Primary [id number] Self [id number] Medicaid [place] Medigap Part B [id number] Self [id number] Medicare [place] Medicare Primary [id number] Self [id number] Medicare [place] Medicare Primary [id number] Self 1 [id number] MEDICARE [id number] SP [id number] A MEDICAID [id number] SP [id number] MEDICAID [id number] SP [id number] MEDICAID [id number] SP [id number] MEDICAID M [id number] Self [id number] [facility] MEDICARE [id number] 1 [facility] MEDICARE [id number] Lida [id number] [facility] [id number] SP [id number] [facility] MEDICARE [id number] Lida [id number] 99 [facility] MEDICARE [id number] 1 MEDICAID [id number] Lida [id number] MEDICAID [id number] ANSI-Medicare Part B [id number] [facility] [id number] [facility] [id number] ANSI-Medicare Part B [id number] MEDICARE [id number] SP [id number] ANSI-Medicare Part B [id number] [facility] [id number] ANSI-Medicaid [id number] ANSI-Medicare Part B [id number] ANSI-Medicaid [id number] ANSI-Medicare Part B [id number] ANSI-Medicaid [id number] ANSI-Medicare Part B [id number] Medicaid [facility] Part B [id number] Self [id number] Medicare [place] Medicare Primary [id number] Self [id number] ANSI-Medicare Part B [id number] ANSI-Medicaid [id number] MEDICARE [id number] SP [id number] A ANSI-Medicare Part B [id number] ANSI-Medicaid [id number] ANSI-Medicare Part B [id number] ANSI-Medicaid [id number] ANSI-Medicare Part B [id number] ANSI-Medicaid [id number] ANSI-Medicaid [id number] ANSI-Medicare Part B [id number] ANSI-Medicare Part B [id number] ANSI-Medicaid [id number] ANSI-Medicare Part B [id number] ANSI-Medicaid [id number] ANSI-Medicaid [id number] ANSI-Medicare Part B [id number] ANSI-Medicare Part B [id number] ANSI-Medicaid [id number] ANSI-Medicaid [id number] ANSI-Medicare Part B [id number] Medicaid [facility] Part B [id number] ...[id number] Self [id number] Medicare [place] Medicare Primary [id number] Self [id number] ANSI-Medicare Part B [id number] ANSI-Medicaid [id number] Medicaid [facility] Part B [id number] [id number] Self [id number] Medicare [place] Medicare Primary [id number] Self [id number] ANSI-Medicare Part B [id number] ANSI-Medicaid [id number] ANSI-Medicare Part B [id number] ANSI-Medicaid [id number] ANSI-Medicare Part B [id number] ANSI-Medicaid [id number] ANSI-Medicaid [id number] ANSI-Medicare Part B [id number] ANSI-Medicaid [id number] ANSI-Medicare Part B [id number] ANSI-Medicare Part B [id number] ANSI-Medicaid [id number] SELF PAY ONLY 000 SP 000 ANSI-Medicare Part B [id number] ANSI-Medicaid [id number] ANSI-Medicare Part B [id number] ANSI-Medicaid [id number] ANSI-Medicaid [id number] ANSI-Medicare Part B [id number] [facility]-Medic[facility] Part B [id number] ANSI-Medicaid [id number] ANS-Medicare Part B [id number] ANSI-Medicaid [id number] [facility]-Medicare Part B [id number] ANSI-Medicaid [id number] Medicaid [facility] Part B [id number] Self [id number] [place] Primary [id number] Self [id number] MEDICARE C [id number] S [id number] A Medicaid [facility] Part B [id number] Self [id number] [place] Primary [id number] Self [id number] [facility] [id number] S [id number] Medicaid [facility] Part B [id number] Self [id number] [place] Medicare Primary [id number] Self [id number] MEDICAID -I/P [id number] 18 [id number] MEDICARE PART A -I/P [id number] 18 [id number] [facility] [place] [facility] C [id number] S [id number] MEDICAID -O/P EMERGENCY ROOM [id number] MEDICARE PART A -O/P [id number] 18 [id number] MEDICAID-O/P UNAVAILABLE UNAVA ILABLE Medicaid [facility] Part B [id number] Self [id number] Medicare [place]/[facility] Medicare Primary [id number] Self [id number] MEDICAID [id number] SP [id number] MEDICARE - [place] MCR [id number] S [id number] [facility] MEDICAID [id number] SP [id number] A [facility] MCRO [id number] SP [id number] [facility] [id number] SP [id number] [place] [id number] SP [id number] [facility] [id number] SP [id number] MEDICARE [id number] SP [id number] [facility]) O [id number] S [id number] MEDICARE C [id number] S [id number] MEDICAID M [id number] S [id number] MEDICAID [id number] SP [id number] ANSI-Medicaid [id number] ANSI-Medicare Part B [id number] ANSI-Medicare Part B [id number] ANSI-Medicaid [id number] ANSI-Medicaid [id number] ANSI-Medicare Part B [id number] ANSI-Medicare Part B [id number] ANSI-Medicaid [id number] ANSI-Medicare Part B [id number] ANSI-Medicaid [id number] ANSI-Medicare Part B [id number] ANSI-Medicaid [id number] ANSI-Medicare Part B [id number] ANSI-Medicaid [id number] ANSI-Medicare Part B [id number] ANSI-Medicaid [id number] ANSI-Medicare Part B [id number] ANSI-Medicaid [id number] ANSI-Medicaid [id number] ANSI-Medicare Part B [id number] ANSI-Medicaid [id number] [facility]-Medicare Part B [id number] Problems, Conditions, and Diagnoses Code Display Name Description Problem Type Effective Dates Data Source(s) Z01.818 Encounter for other preprocedural examin ation Encounter for other preprocedural examin Diagnosis 04/09/2021 07:57:37 AM EDT Health system E78.2 Mixed hyperlipidemia Mixed hyperlipidemia Diagnosis 04/09/2021 07:57:37 AM EDT Health system I51.7 Cardiomegaly Cardiomegaly Diagnosis 04/09/2021 07:57:37 A M EDT Health system I10 Essential (primary) hypertension Essential (primary) h ypertension Diagnosis 03/28/2021 06:59:00 AM EDT Health system Z79.4 correction (current) use of insulin correction (cu rrent) use of insulin Diagnosis 03/28/2021 06:59:00 AM EDT [facility] N18.30 Chronic kidney disease, stage 3 unspecif ied Chronic kidney disease, stage 3 unspecif Diagnosis 03/28/2021 06:59:00 AM EDT Health system E11.22 Type 2 diabetes mellitus with diabetic c hronic kidney disease Type 2 diabetes mellitus with diabetic c Diagnosis 03/28/2021 06:59:00 AM EDT Health system R07.89 Other chest pain Other chest pain Diagnosis 03/28/2021 06 :59:00 AM EDT Health system K21.9 Gastro-esophageal reflux disease without esophagitis Gastro-esophageal reflux disease without Diagnosis 01/28/2021 10:21:[address] [facility] U07.1 COVID-19 COVID-19 Diagnosis 01/23/2021 08:29:04 AM ED T Health system J31.0 [id number] Rhinitis, unspecified type Problem 12:00:00 AM EDT [facility] G43.019 [id number] Intractable migraine without aura and without status migrainosus Problem 03/19/2021 12:00:00 AM EDT eCW1 ([facility]) Z01.818 Preoperative clearance Preoperative clearance [id number] 01/24/2021 12:00:00 AM EDT Health system E11.22 Type 2 diabetes mellitus wit h chronic kidney disease, with long-term current use of insulin Type 2 diabetes mellitus with chronic ki dney disease, with long-term current use of insulin [id number] 01/24/2021 12:00:00 AM EDT Health system I10 Essential hypertension Essential hypertension [id number] 01/24/2021 12:00:00 AM EDT Health system E78.2 Mixed hyperlipidemia Mixed hyperlipidemia [id number] 01/24/2021 12:00:00 AM EDT Health system R07.89 Chest discomfort Chest discomfort [id number] 01/24/2021 12 :00:00 AM EDT Health system I51.7 Cardiomegaly Cardiomegaly [id number] 01/20/2021 12:00:00 A M EDT Health system H40.9 Glaucoma Glaucoma of both eyes, unspecified glauco ma type Problem 11/20/2020 12:00:00 AM EST [facility] E66.01 [id number] Morbid (severe) obesity due to excess c alories Problem 10/02/2020 12:00:00 AM EST [facility]) E78.2 [id number] Mixed hyperlipidemia Problem 08/21/2020 12:0 0:00 AM EST eCW1 ([facility]) Surgeries/Procedures Procedure Description Date Indications Data Source(s) ARTHROCENTESIS ASPIR&/INJECTION MAJOR JT/BURSA 021 12:00:00 AM EDT MEDENT ([facility]) MRI BRAIN BRAIN STEM W/O CONTRAST MATERIAL 04/05/2021 12:00:00 AM EDT MEDENT ([facility]) MRI BRAIN BRAIN STEM W/O CONTRAST MATERIAL 04/05/2021 12:00:00 AM EDT MONTSE ([facility], ) TROPONIN QUANTITATIVE <td>TROPONIN I</td><td>Routine</td><td>03/21/2021</td><td></td><td> </td> 03/21/2021 12:00:00 AM EDT Health system PROTHROMBIN TIME <td>PROTIME- INR</td><td>Routine</td><td>03/20/2021</td><td></td><td> </td> 03/20/2021 12:00:00 AM T Health system BLOOD COUNT COMPLETE AUTO&AUTO DIFRNTL WBC COUNT <td>C BC AND DIFFERENTIAL</td><td>Routine</td><td>03/20/2021</td><td></td><td> </td> 03/20/2021 12:00:00 AM EDT Health system PROTHROMBIN TIME <td>POCT INR</td><td>Routine</td><td>03/20/2021</td><td></td><td> </td> 03/20/2021 12:00:00 AM EDT Health system HEPATIC FUNCTION PANEL <td>HEPATIC FUNCTION PANEL</td><td>Routine</td><td>03/20/2021</td><td></td><td> </td> 03/20/2021 12:00:00 AM EDT Health system BASIC METABOLIC PANEL CALCIUM TOTAL <td>BASIC METABOLI C PANEL</td><td>Routine</td><td>03/20/2021</td><td></td><td> </td> 03/20/2021 12:00:00 AM EDT Health system POCT AMB EKG <td>POCT AMB EKG</td><td>Rou julia</td><td>03/12/2021 12:37 PM EDT</td><td> Chest discomfort</td><td> </td> 03/12/2021 12:37:00 PM EDT Chest discomfort Health system Chest discomfort OFFICE OUTPATIENT VISIT 15 MINUTES 02/14/2021 12:00:00 AM EDT MEDENT ([facility]) UPPER NDSC BIOPSY SINGLE/MULTIPLE 01/28/2021 12:00:00 AM EDT MEDENT ([facility]) POCT AMB EKG <td>POCT AMB EKG</td><td>Rou julia</td><td>01/24/2021 3:46 PM EDT</td><td> Cardiomegaly</td><td> </td> 01/24/2021 03:46:00 PM EDT Cardiomegaly Health system Cardiomegaly ARTHROCENTESIS ASPIR&/INJECTION MAJOR JT/BURSA 021 12:00:00 AM EDT MEDENT ([facility]) Diabetic Foot Exam 12/04/2020 12:00:00 AM EST MEDENT ([facility]) BLOOD COUNT COMPLETE AUTO&AUTO DIFRNTL WBC COUNT <td>C BC AND DIFFERENTIAL</td><td>Routine</td><td>11/24/2020</td><td></td><td> </td> 11/24/2020 12:00:00 AM EST Health system THYROID STIMULATING HORMONE TSH <td>TSH</td><td>Routine</td><td>11/24/2020</td><td></td><td> </td> 11/24/2020 12:00:00 AM [facility] BASIC METABOLIC PANEL CALCIUM TOTAL <td>BASIC METABOLI C PANEL</td><td>Routine</td><td>11/24/2020</td><td></td><td> </td> 11/24/2020 12:00:00 AM [facility] HEMOGLOBIN GLYCOSYLATED A1C <td>HEMOGLOBIN A1C</td><td>Routine</td><td>11/20/2020</td><td></td><td> </td> 11/20/2020 12:00:00 AM [facility] LIPID PANEL <td>LIPID PANEL</td><td>Rout ine</td><td>11/20/2020</td><td></td><td> </td> 11/20/2020 12:00:00 AM [facility] ARTHROCENTESIS ASPIR&/INJECTION MAJOR JT/BURSA 020 12:00:00 AM EST MEDENT ([facility] ) RADIOLOGIC EXAM KNEE COMPLETE 4/MORE VIEWS 08/17/2020 12:00:00 AM EST MEDENT ([facility] ) RADIOLOGIC EXAM KNEE COMPLETE 4/MORE VIEWS 08/17/2020 12:00:00 AM EST MEDENT ([facility] ) RADIOLOGIC EXAM KNEE COMPLETE 4/MORE VIEWS 08/17/2020 12:00:00 AM EST MEDENT ([facility] ) RADIOLOGIC EXAM KNEE COMPLETE 4/MORE VIEWS 08/17/2020 12:00:00 AM EST MEDENT ([facility] ) TSTG ANS FUNCJ CARDIOVAGAL INNERVAJ PARASYMP 0 12:00:00 AM EDT MEDENT ([facility]) TSTG ANS FUNCJ CARDIOVAGAL INNERVAJ PARASYMP 0 12:00:00 AM EDT MEDENT ([facility] ) TESTING AUTONOMIC NERVOUS SYSTEM FUNCTION 07/20/2020 1 2:00:00 AM EDT MEDENT ([facility]) TESTING AUTONOMIC NERVOUS SYSTEM FUNCTION 07/20/2020 1 2:00:00 AM EDT MEDENT ([facility]) PNEUMOCOCCAL CONJ VACCINE 13 VALENT IM 06/27/2020 12:0 0:00 AM EDT eCW1 ([facility]) Immunization: Flublok Quadrivalent (18 years & older) 0.5mL IM (Influenza) 06/27/2020 12:00:00 AM EDT eCW1 ([facility]) RADEX SPINE LUMBOSACRAL 2/3 VIEWS 06/08/2020 12:00:00 AM EDT MEDENT ([facility]) Results ID Date Data Source [id number] 03/28/2021 08:24:46 AM EDT Health system Name Value Range Interpretation Code Description Data Allegra rce(s) Supporting Document(s) [facility] [id number] [file] [id number] ID Date Data Source [id number] 03/28/2021 07:53:15 AM EDT [facility] kimberly HAYNES Name Value Range Interpretation Code Description Data Allegra rce(s) Supporting Document(s) POC NOVA GLU 252 mg/dL (70-99) H [facility] Lizeth DUNN PERFORMED BY [facility] ID Date Data Source [id number] 03/13/2021 07:25:00 AM EDT [facility] FASTING: UNKNOWNReceived: 03/13/2021 at 06:28:00 QPT: [facility], [address], [address] [place] [address], [phone], Nito Smallwood MD Received: 03/13/2021 at 06:28:00 QPT : [facility], [address], [address] [place] [address], [phone], Nito Smallwood MD Name Value Range Interpretation [...] is approximately 13% higher for peopleidentified as -Kazakh. eGFR NON-AFR. MACANESE 44 mL/min/1.73m2 > OR = 60 Below [...] normal [facility] ID Date Data Source [id number] 03/13/2021 07:25:00 AM EDT [facility] FASTING: UNKNOWNReceived: 03/13/2021 at 06:28:00 QPT: [facility], [address], [address] [place] [address], [phone], Nito Smallwood MD Received: 03/13/2021 at 06:28:00 QPT : [facility], [address], [address] [place], [phone], Nito Smallwood MD Name Value Range Interpretation [...] copy faxed has been acknowledged. Queued to: [id number] ID Date Data Source [id number] 03/07/2021 09:19:00 AM EDT MEDENT ([facility]) Name Value Range Interpretation Code Description Data Allegra rce(s) Supporting Document(s) Hemoglobin A1c/Hemoglobin.total in Blood 8.8 [facility] ([facility]) Glucose [Mass/volume] in Serum or Plasma 233 [facility]ENT ([facility]) ID Date Data Source [id number] 02/04/2021 05:30:48 PM EDT [address] [id number] Surgical Pathology ReportPatient Name: ORLANDO PERALESB: 5Accession #:[id number]) ReceivedA: Antrum bxB: Gastric body bxClinical Diagnosis [...] 02/04/2021Electronically Signed Out By Christiano Em MD [facility] [place] [address] [id number] component performed at [facility], [address] [place] [address], [phone].Reported at [facility], [address] [place] [address], [phone]. This report may includeimmunohistochemical or in-situ hybridization results. Testing wasdeveloped and the performance characteristics determined by [employer] as required by CLIA '88. The FDA hasdetermined that approval for specific use is not necessary for clinicaluse. The quality of Hematoxylin and Eosin stains and as applicable, forall immunohistochemical and/or special stains, including positive andnegative controls, were reviewed and considered appropriate.ICD codes K21.9CPT codesA: 81205G, 37179uV: 54910I Name Value Range Interpretation Code Description Data Allegra rce(s) Supporting Document(s) ID Date Data Source [id number] 01/28/2021 11:13:[address] [facility] INFORMATIONPatient MRN Name Date of Age Gend*PT [id number] Cecily Perales 1955 65 years F OPPT Location Admission Date/Time Visit ID [facility] 1021 --- Bairon Melgar MD([id number]) EPI ID [facility] Admitting Provider [id number] Bairon Melgar MD([id number])Endoscopic Gastroduodenoscopy Procedure NotePatient: Cecily CamaranerSurgery Date: January [...] rce(s) Supporting Document(s) ID Date Data Source [id number] 01/28/2021 10:45:[address] [facility] INFORMATIONPatient MRN Name Date of Age Gend*PT [id number] Cecily Perales 1955 65 years F OPPT Location Admission Date/Time Visit ID [facility] 1021 --- Bairon Melgar MD([id number]) EPI ID [facility] Admitting Provider [id number] Bairon Melgar MD([id number])Pre-Procedure History and Physical:Past Medical History:Diagnosis Date CRI (chronic renal insufficiency), stage 3 (moderate) DVT (deep venous thrombosis) 2008 RLE GERD (gastroesophageal reflux disease) Hyperlipidemia Hypertension Morbid obesity FREDDY (obstructive sleep apnea) Pulmonary embolism 2008 Type [...] 1 TABLET BY MOUTH 5 TIMES PER WEEKMOND THROUGH THURSDAY gabapentin (NEURONTIN) 600 MG tablet [...] rce(s) Supporting Document(s) ID Date Data Source [id number] 01/28/2021 10:43:38 AM EDT [facility] Name Value Range Interpretation Code Description Data Allegra rce(s) Supporting Document(s) POC NOVA GLU 133 mg/dL (70-99) H [facility] Bret DUNN PERFORMED BY [facility] ID Date Data Source [id number] 01/23/2021 08:35:00 AM EDT [facility] Name Value Range Interpretation Code Description Data Allegra rce(s) Supporting Document(s) SARS coronavirus 2 RNA Not Detected [facility] [place] This lab was ordered by [facility] and reported by [facility]. ID Date Data Source [id number] 01/24/2021 02:10:17 PM EDT Lab [facility] Name Value Range Interpretation Code Description Data Allgera rce(s) Supporting Document(s) SARS-COV-2 MARLEEN [facility] Not DetectedReference range: Not Detecte d This nucleic acid amplification test was developed and its performance characteristics determined by [employer]. Nucleic acid amplification tests include RT-PCR and [...] detected) result in this assay. Performed At: [employer] [address] [place], [place] [id number] Miesha Hester PhD Ph:[phone] ID Date Data Source [id number] 10/23/2020 02:00:00 PM EST [facility] Name Value Range Interpretation Code Description Data Allegra rce(s) Supporting Document(s) SARS coronavirus 2 RNA Not Detected [facility] [place] This lab was ordered by [facility] and reported by [facility]. ID Date Data Source [id number] 07/31/2020 08:06:00 AM EST MEDENT ([facility], ) Name Value Range Interpretation Code Description Data Allegra rce(s) Supporting Document(s) Surgical pathology study Laboratory test result [facility] ([facility] ) FINAL DIAGNOSIS A-Descending colon polyp, polypectomy: [...] MD 08/01/2020 1353 ID Date Data Source [id number] 07/31/2020 07:09:00 AM EST [facility] ([facility], ) Name Value Range Interpretation Code Description Data Allegra rce(s) Supporting Document(s) Glucose [Mass/volume] in Capillary blood by Glucometer 220 mg/dL 80-115 Above high normal [facility] ([facility]) ID Date Data Source [id number] 07/26/2020 10:25:00 AM EDT [facility] Name Value Range Interpretation Code Description Data Allegra rce(s) Supporting Document(s) SARS coronavirus 2 RNA [facility] This lab was ordered by [facility] and reported by [facility]. ID Date Data Source [id number] 06/28/2020 10:00:00 PM EDT [facility] ([facility]) Name Value Range Interpretation Code Description Data Allegra rce(s) Supporting Document(s) Elastase.pancreatic [Mass/mass] in Stool Laboratory test result Normal (applies to non-numeric results) [facility] ([facility]) <content>Result Units: ug Elast./g</cont ent>
<content>Severe Pancreatic Insufficiency: <100</content>
<content>Moderate Pancreatic Insufficiency: 100 - 200</content>
<content>Normal: >200</content>
<content>Performed at: [facility]</content>
<content>[address] [place] [phone]</content>
<content>Certified Orthotist: Dat Flores MD, Phone: [phone]</content>
<content></content> ID Date Data Source [id number] 06/27/2020 02:17:00 PM EDT [facility] ([facility], ) Name Value Range Interpretation Code Description Data Allegra rce(s) Supporting Document(s) Tissue transglutaminase IgA Ab [Units/volume] in Serum 3 U/mL 0-3 Normal (applies to non-numeric results) [facility] ([facility]) Negative 0 - 3 Weak Positive 4 - 10 Positive >10 . Tissue Transglutaminase (tTG) has been identified as the endomysial antigen. Studies have demonstr- ated that endomysial IgA antibodies have over 99% specificity for gluten sensitive enteropathy. Performed at: [facility] [id number] Certified Orthotist: Keiry Munguia MD, Phone: [phone] ID Date Data Source [id number] 06/05/2020 04:15:00 PM EDT [facility] ([facility]) Name Value Range Interpretation Code Description Data Allegra rce(s) Supporting Document(s) Glucose [Mass/volume] in Serum or Plasma 256 [facility] ([facility]) Hemoglobin A1c/Hemoglobin.total in Blood 9.5 [facility] ([facility]) Procedure Social History Code Duration Value Status Description Data Source(s ) Smoking 04/30/2021 12:00:00 AM EDT Never Smoker completed Never S moker [facility] Alcohol intake 04/09/2021 12:00:00 AM EDT Lifetime non-drinker (finding) completed Lifetime non-drinker (finding) [facility] Smoking 04/02/2021 12:00:00 AM EDT Never Smoker completed Never S moker eCW1 ([facility]) Smoking 04/02/2021 12:00:00 AM EDT Never Smoker completed Never S moker eCW1 ([facility]) Smoking 04/02/2021 12:00:00 AM EDT Never Smoker completed Never S moker eCW1 ([facility]) Smoking 04/02/2021 12:00:00 AM EDT Never Smoker completed Never S moker eCW1 ([facility]) Smoking 03/19/2021 12:00:00 AM EDT Never Smoker completed Never S moker eCW1 ([facility]) Alcohol intake 03/12/2021 12:00:00 AM EDT Lifetime non-drinker (finding) completed Lifetime non-drinker (finding) [facility] Tobacco use and exposure 01/24/2021 12:00:00 AM EDT Never used co mpleted Never used Health system Smoking 01/24/2021 12:00:00 AM EDT Never smoker completed Never s moker Health system Alcohol intake 01/24/2021 12:00:00 AM EDT Lifetime non-drinker (finding) completed Lifetime non-drinker (finding) [facility] Smoking 12/04/2020 12:00:00 AM EST Patient has never smoked co mpleted Patient has never smoked [facility] ([facility]) Smoking 11/20/2020 12:00:00 AM EST Never Smoker completed Never S moker eCW1 [facility] Smoking 11/20/2020 12:00:00 AM EST Never Smoker completed Never S moker eCW1 ([facility]) Smoking 08/21/2020 12:00:00 AM EST Never Smoker completed Never S moker eCW1 ([facility]) Smoking 08/21/2020 12:00:00 AM EST Never Smoker completed Never S moker eCW1 ([facility]) Smoking 08/21/2020 12:00:00 AM EST Never Smoker completed Never S moker eCW1 ([facility]) Smoking 08/21/2020 12:00:00 AM EST Never Smoker completed Never S moker eCW1 ([facility]) Smoking 08/21/2020 12:00:00 AM EST Never Smoker completed Never S moker eCW1 ([facility]) Smoking 08/21/2020 12:00:00 AM EST Never Smoker completed Never S moker eCW1 ([facility]) Smoking 08/21/2020 12:00:00 AM EST Never Smoker completed Never S moker eCW1 ([facility]) Smoking 08/21/2020 12:00:00 AM EST Never Smoker completed Never S moker eCW1 ([facility]) Smoking 08/21/2020 12:00:00 AM EST Never Smoker completed Never S moker eCW1 ([facility]) Smoking 08/21/2020 12:00:00 AM EST Never Smoker completed Never S moker eCW1 ([facility]) Smoking 07/31/2020 12:00:00 AM EST Never Smoker completed Never S moker eCW1 ([facility]) Smoking 07/18/2020 12:00:00 AM EDT Never Smoker completed Never S moker eCW1 ([facility]) Smoking 07/18/2020 12:00:00 AM EDT Never Smoker completed Never S moker eCW1 ([facility]) Smoking 07/18/2020 12:00:00 AM EDT Never Smoker completed Never S moker eCW1 ([facility]) Smoking 06/27/2020 12:00:00 AM EDT Never Smoker completed Never S moker eCW1 ([facility]) Vital Signs ID Date Data Source UNK Name Value Range Interpretation Code Description Data Source(s) Body weight 333.4 [lb_av] 333.4 [lb_av] eCW[facility]) Body height 65 [in_i] 65 [in_i] eCW1 ([facility]) Respiratory rate 18 /min 18 /min eCW1 ([facility]) Heart rate 100 /min 100 /min eCW1 ([facility]) Body mass index (BMI) [Ratio] 55.47 kg/m2 55.47 kg/m2 W1 ([facility] Body temperature 95.6 [degF] 95.6 [degF] eCW[facility] Systolic blood pressure 140 mm[Hg] 140 mm[Hg] e CW1 ([facility]) Diastolic blood pressure 80 mm[Hg] 80 mm[Hg] eCW1 [facility]) Systolic blood pressure 138 mm[Hg] 138 mm[Hg] [facility] Diastolic blood pressure 82 mm[Hg] 82 mm[Hg] Health system Heart rate 84 /min 84 /min [facility] Body height 165.1 cm 165.1 cm Health system Body weight 151.501 kg 151.501 kg Health system Body mass index (BMI) [Ratio] 55.58 kg/m2 55.58 kg/m2 Health system Oxygen saturation in Arterial blood by Pulse oximetry 92 % 92 % Health system Body weight 334 [lb_av] 334 [lb_av] eCW1 ([facility]) Body height 65 [in_i] 65 [in_i] eCW1 ([facility]) Body mass index (BMI) [Ratio] 55.57 kg/m2 55.57 kg/m2 eCW1 [facility]) Heart rate 92 /min 92 /min eCW1 ([facility]) Respiratory rate 18 /min 18 /min eCW1 ([facility]) Body temperature 97.2 [degF] 97.2 [degF] eCW1 [facility] Systolic blood pressure 126 mm[Hg] 126 mm[Hg] e CW1 ([facility]) Diastolic blood pressure 80 mm[Hg] 80 mm[Hg] eCW1 ([facility]) Body weight 333 [lb_av] 333 [lb_av] eCW1 ([facility]) Body height 65 [in_i] 65 [in_i] eCW1 ([facility]) Body mass index (BMI) [Ratio] 55.41 kg/m2 55.41 kg/m2 W1 ([facility]) Heart rate 96 /min 96 /min eCW1 ([facility]) Respiratory rate 18 /min 18 /min eCW1 ([facility]) Body temperature 96.9 [degF] 96.9 [degF] eCW1 [facility] Systolic blood pressure 138 mm[Hg] 138 mm[Hg] e CW1 ([facility]) Diastolic blood pressure 84 mm[Hg] 84 mm[Hg] eCW1 [facility]) Systolic blood pressure 126 mm[Hg] 126 mm[Hg] [facility] Oxygen saturation in Arterial blood by Pulse oximetry 93 % 93 % Health system Diastolic blood pressure 90 mm[Hg] 90 mm[Hg] Health system Heart rate 85 /min 85 /min [facility] Body height 165.1 cm 165.1 cm Health system Body weight 152.409 kg 152.409 kg Health system Body mass index (BMI) [Ratio] 55.91 kg/m2 55.91 kg/m2 Health system Heart rate 90 /min 90 /min [facility] ([facility] ) Systolic blood pressure 142 mm[Hg] 142 mm[Hg] M EDENT ([facility] ) Diastolic blood pressure 86 mm[Hg] 86 mm[Hg] [facility] ([facility] ) Body temperature 95.9 [degF] 95.9 [degF] [facility] ([facility] ) Body height 66.4 [in_i] 66.4 [in_i] MED[facility] ([facility]) 5'6.40" Body weight 333.12 [lb_av] 333.12 [lb_av] MEDEN T ([facility]) Body mass index (BMI) [Ratio] 53.1 kg/m2 53.1 k g/m2 MED[facility] ([facility] ) Oxygen saturation in Arterial blood by Pulse oximetry 95 % 95 % [facility] ([facility]) Respiratory rate 12 /min 12 /min MED[facility] ( [facility] Body height 66 [in_i] 66 [in_i] MED[facility] ([facility] ) 5'6" Body weight 325.00 [lb_av] 325.00 [lb_av] MEDEN T ([facility] ) Body mass index (BMI) [Ratio] 52.5 kg/m2 52.5 k g/m2 MED[facility] ([facility] ) [place] body weight 130 [lb_av] 130 [lb_av] MEDEN T ([facility] ) Systolic blood pressure 142 mm[Hg] 142 mm[Hg] [facility] Diastolic blood pressure 88 mm[Hg] 88 mm[Hg] Health system Heart rate 78 /min 78 /min [facility] Body height 167.6 cm 167.6 cm Health system Body weight 154.677 kg 154.677 kg Health system Body mass index (BMI) [Ratio] 55.04 kg/m2 55.04 kg/m2 Health system Oxygen saturation in Arterial blood by Pulse oximetry 95 % 95 % Health system Body weight 339.00 [lb_av] 339.00 [lb_av] MEDEN T ([facility] ) Heart rate 80 /min 80 /min [facility] ([facility] ) Body temperature 957.0 [degF] 957.0 [degF] MEDE NT ([facility] ) Body mass index (BMI) [Ratio] 54.1 kg/m2 54.1 k g/m2 [facility] ([facility] ) Body height 66.4 [in_i] 66.4 [in_i] MED[facility] ([facility] 5'6.40" Oxygen saturation in Arterial blood by Pulse oximetry 98 % 98 % [facility] ([facility] ) Systolic blood pressure 136 mm[Hg] 136 mm[Hg] M EDENT ([facility] ) Diastolic blood pressure 84 mm[Hg] 84 mm[Hg] [facility] ([facility] ) Body mass index (BMI) [Ratio] 52.5 kg/m2 52.5 k g/m2 [facility] ([facility] [place] body weight 130 [lb_av] 130 [lb_av] MEDEN T ([facility] ) Respiratory rate 12 /min 12 /min [facility] ( [facility] ) Body height 66 [in_i] 66 [in_i] [facility] ([facility] ) 5'6" Body weight 325.00 [lb_av] 325.00 [lb_av] MEDEN T ([facility] ) Body weight 340 [lb_av] 340 [lb_av] eCW1 ([facility]) Body height 65 [in_i] 65 [in_i] eCW1 ([facility]) Body mass index (BMI) [Ratio] 56.57 kg/m2 56.57 kg/m2 eCW[facility] Heart rate 111 /min 111 /min eCW1 ([facility]) Respiratory rate 20 /min 20 /min eCW1 ([facility]) Body temperature 96.5 [degF] 96.5 [degF] eCW1 [facility] Systolic blood pressure 130 mm[Hg] 130 mm[Hg] e CW1 ([facility]) Diastolic blood pressure 80 mm[Hg] 80 mm[Hg] eCW1 ([facility]) Body weight 340 [lb_av] 340 [lb_av] eCW1 ([facility]) Body height 65 [in_i] 65 [in_i] eCW1 ([facility]) Body mass index (BMI) [Ratio] 56.57 kg/m2 56.57 kg/m2 eCW1 ([facility]) Heart rate 116 /min 116 /min eCW1 ([facility]) Respiratory rate 18 /min 18 /min eCW1 ([facility]) Body temperature 96.4 [degF] 96.4 [degF] eCW1 ( [facility] Systolic blood pressure 128 mm[Hg] 128 mm[Hg] e CW1 ([facility]) Diastolic blood pressure 80 mm[Hg] 80 mm[Hg] eCW1 ([facility] [facility] Body weight 345 [lb_av] 345 [lb_av] eCW1 ([facility]) Body height 65 [in_i] 65 [in_i] eCW1 ([facility]) Body mass index (BMI) [Ratio] 57.40 kg/m2 57.40 kg/m2 eCW1 [facility]) Heart rate 118 /min 118 /min eCW1 ([facility]) Respiratory rate 18 /min 18 /min eCW1 ([facility]) Body temperature 97.7 [degF] 97.7 [degF] eCW1 ( [facility]) Systolic blood pressure 152 mm[Hg] 152 mm[Hg] e CW1 ([facility]) Diastolic blood pressure 90 mm[Hg] 90 mm[Hg] eCW1 ([facility]) Body mass index (BMI) [Ratio] 54.1 kg/m2 54.1 k g/m2 MEDENT ([facility]) Diastolic blood pressure 84 mm[Hg] 84 mm[Hg] MEDENT ([facility]) Heart rate 71 /min 71 /min MEDENT ([facility]) Body height 66.4 [in_i] 66.4 [in_i] MEDENT ([facility]) 5'6.40" Body weight 339.25 [lb_av] 339.25 [lb_av] MEDEN T ([facility]) Oxygen saturation in Arterial blood by Pulse oximetry 96 % 96 % MEDENT ([facility]) Systolic blood pressure 126 mm[Hg] 126 mm[Hg] M EDENT ([facility]) Patient Treatment Plan of Care Planned Activity Planned Date Details Description Data Source (s) Flonase Allergy Relief 50 MCG/ACT 04/02/2021 12:00:00 AM EDT eCW1 ([facility]) Flonase Allergy Relief 50 MCG/ACT 04/02/2021 12:00:00 AM EDT eCW1 ([facility]) fluticasone (FLONASE) 50 MCG/ACT nasal spray 04/02/2021 12:00:00 AM EDT Health system Flonase Allergy Relief 50 MCG/ACT 04/02/2021 12:00:00 AM EDT eCW1 ([facility]) Flonase Allergy Relief 50 MCG/ACT 04/02/2021 12:00:00 AM EDT eCW1 ([facility]) Amitriptyline Hydrochloride 10 MG Oral Tablet 03/19/2021 12:00:00 A M EDT eCW1 ([facility]) clopidogrel 75 MG Oral Tablet 03/12/2021 12:00:00 AM EDT Health system Cholecalciferol 1000 UNT Oral Tablet 01/15/2021 12:00:00 AM EDT Health system latanoprost 0.05 MG/ML Ophthalmic Solution 01/10/2021 12:00:00 AM E DT Health system carvedilol 25 MG Oral Tablet 01/04/2021 12:00:00 AM EDT Health system Magnesium Oxide 400 MG Oral Tablet 01/03/2021 12:00:00 AM EDT Health system 3 ML Insulin Lispro 100 UNT/ML Pen Injector [Humalog] 01/02/2021 12:00:00 AM [facility] cinacalcet 30 MG Oral Tablet 01/02/2021 12:00:00 AM EDT Health system glimepiride 4 MG Oral Tablet 12/03/2020 12:00:00 AM EST Health system Simvastatin 80 MG Oral Tablet 12/01/2020 12:00:00 AM EST Health system gabapentin 600 MG Oral Tablet 11/20/2020 12:00:00 AM EST Health system 3 ML liraglutide 6 MG/ML Pen Injector [Victoza] 11/17/2020 12:00:00 AM EST Health system Ergocalciferol 89180 UNT Oral Capsule 11/10/2020 12:00:00 AM EST Health system Zofran ODT 4 MG 07/18/2020 12:00:00 AM EDT eCW1 ([facility]) Zofran ODT 4 MG 07/18/2020 12:00:00 AM EDT eCW1 ([facility]) Zofran ODT 4 MG 07/18/2020 12:00:00 AM EDT eCW1 ([facility]) Oxymetazoline HCl (NASAL SPRAY LONG ACTING NA) Health system 60 ACTUAT exenatide 0.01 MG/ACTUAT Pen Injector [[place]] Health system
--- NOTE | 2021-07-23 05:42 | REPVR ---
PROCEDURE INFORMATION: Exam: XR Right Knee Exam date and time: 07/23/2021 4:16 AM Age: 66 years old Clinical indication: Knee; Bilateral; Patient HX: Pain after injections, unable to bend for sunrise views TECHNIQUE: Imaging protocol: XR Right knee. Views: 4 or more views. COMPARISON: CR Knee, Ap, Lat 08/10/2019 12:51 PM FINDINGS: Bones/joints: Narrowing of the medial compartment of the joint with slight lateral subluxation of the tibia relative to the femur. Degenerative spurring and sharpening of the tibial spines. No fractures. Degenerative spurring is noted at the patellofemoral joint. Soft tissues: Normal. IMPRESSION: 1. Moderate degenerative osteoarthritis of the right knee. 2. No acute fracture. PROCEDURE INFORMATION: Exam: XR Left Knee Exam date and time: 07/23/2021 4:16 AM Age: 66 years old Clinical indication: Knee; Bilateral; Patient HX: Pain after injections, unable to bend for sunrise views TECHNIQUE: Imaging protocol: XR Left knee. Views: 4 or more views. COMPARISON: CR Knee, Ap, Lat 08/10/2019 12:51 PM FINDINGS: Bones/joints: Narrowing of the medial compartment of the joint space with subchondral sclerosis in the medial tibial plateau. Degenerative spurring and sharpening of the tibial spines. No acute fracture. Degenerative spurring is noted at the patellofemoral joint. Soft tissues: Normal. IMPRESSION: 1. Moderate degenerative osteoarthritis, greatest in the medial compartment. 2. Otherwise negative left knee. Electronically signed by: Jose Rafael Kong On 07/23/2021 05:41:57 AM
[2021-07-23] MEDS ORDERED: KETOROLAC TROMETHAMINE 10 MG TAB PO ONE (05:45)
[2021-07-23] MEDS ORDERED: FLON1SPR NARES (07:58)
[2021-07-23] MEDS ORDERED: DIVA250T67 PO (07:58)
[2021-07-23] MEDS ORDERED: ALLO300T2 PO (07:58)
[2021-07-23] MEDS ORDERED: OMEP-218 PO (07:58)
[2021-07-23 07:59] LABS: BASO # 0.1 10^3/uL (0.0-0.2); BASO % 0.4 % (0.0-1.0); EOS # 0.1 10^3/uL (0.0-0.5); HEMATOCRIT 41.4 % (36.0-47.0); HEMOGLOBIN 12.8 g/dl (12.0-15.5); LYMPH # 1.9 10^3/uL (1.5-5.0); LYMPH % 14.3 % (24.0-44.0); MEAN CORPUSCULAR HEMOGLOBIN 28.4 pg (27.0-33.0); MEAN CORPUSCULAR HGB CONC 30.9 g/dl (32.0-36.5); MONO # 1.1 10^3/uL (0.0-0.8); MONO % 8.1 % (2.0-8.0); NEUTROPHILS # 10.2 10^3/uL (1.5-8.5); NEUTROPHILS % 75.8 % (36.0-66.0); PLATELET COUNT, AUTOMATED 198 10^3/uL (150-450); WHITE BLOOD COUNT 13.4 10^3/uL (4.0-10.0)
[2021-07-23] MEDS ORDERED: HOME MED LIST COMPLETE! XX SCH (08:00)
[2021-07-23 08:23] LABS: CALCIUM LEVEL 8.8 MG/DL (8.8-10.2); CREATININE FOR GFR 1.57 MG/DL (0.55-1.30); GLOMERULAR FILTRATION RATE 35.1 (>45); MAGNESIUM LEVEL 1.1 MG/DL (1.8-2.4); POTASSIUM SERUM 4.5 MEQ/L (3.5-5.1)
[2021-07-23 08:29] LABS: RSV AMPLIFICATION NEGATIVE (NEGATIVE)
[2021-07-23] MEDS ORDERED: GLUCAGON INJ 1MG VIAL SC PRN (08:35)
[2021-07-23] MEDS ORDERED: GLUCOSE 4GM CHEW TABLET PO PRN (08:35)
[2021-07-23] MEDS ORDERED: DEXTROSE 50% 50 ML SYRINGE IV PRN (08:35)
[2021-07-23] MEDS ORDERED: ACETAMINOPHEN TAB 650MG DOSE (2X325MG) PO PRN (08:35)
--- OUTSIDE RECORDS SUMMARY | 2021-07-23 08:56 | CCD ---
Author Author [facility] Organization [facility] Address Unknown Phone Unavailable Care Team Providers Care Relocation Counselor Name Role Phone Justyna Henley PA-C Unavailable Unavailabl e Justyna Henley PA-C Unavailable Unavailabl e Justyna Henley PA-C Unavailable Unavailabl e Justyna Henley PA-C Unavailable Unavailabl e Justyna Henley, PA-C Unavailable Unavailabl e Fish, [facility], PA-C Unavailable Unavailabl e Fish, [facility], PA-C Unavailable Unavailabl e Fish, [facility], PA-C Unavailable Unavailabl e Fish, [facility], PA-C Unavailable Unavailabl e Fish, [facility], PA-C Unavailable Unavailabl e Fish, [facility], PA-C Unavailable Unavailabl e Fish, [facility], PA-C Unavailable Unavailabl e Fish, [facility], PA-C Unavailable Unavailabl e Fish, [facility], PA-C Unavailable Unavailabl e Fish, [facility], PA-C Unavailable Unavailabl e Fish, [facility], PA-C Unavailable Unavailabl e Fish, [facility], PA-C Unavailable Unavailabl e Fish, [facility], PA-C Unavailable Unavailabl e Fish, [facility], PA-C Unavailable Unavailabl e Fish, [facility], PA-C Unavailable Unavailabl e Fish, [facility], PA-C Unavailable Unavailabl e Fish, [facility], PA-C Unavailable Unavailabl e Fish, [facility], PA-C Unavailable Unavailabl e Fish, [facility], PA-C Unavailable Unavailabl e Fish, [facility], PA-C Unavailable Unavailabl e Fish, [facility], PA-C Unavailable Unavailabl e Fish, [facility], PA-C Unavailable Unavailabl e Fish, [facility], PA-C Unavailable Unavailabl e Fish, [facility], PA-C Unavailable Unavailabl e Fish, [facility], PA-C Unavailable Unavailabl e Fish, [facility], PA-C Unavailable Unavailabl e Fish, [facility], PA-C Unavailable Unavailabl e Fish, [facility], PA-C Unavailable Unavailabl e Fish, [facility], PA-C Unavailable Unavailabl e Fish, [facility], PA-C Unavailable Unavailabl e Fish, Justyna FRANK [...] Unavailable Unavailable Lizeth Melgar MD Unavailable Unavailable Liezth Melgar MD Unavailable Unavailable Lizeth Melgar MD [...] Ziad MD Unavailable Unavailable MAT, B MELECIO [employer] PROGRAM COORDINATOR Unavailable Unavailable MAT, B MELECIO HEREDITARY CANCER PROGRAM COORDINATOR Unavailable Unavailable MAT, B MELECIO HEREDITARY CANCER PROGRAM COORDINATOR Unavailable Unavailable MAT, B MELECIO HEREDITARY CANCER PROGRAM COORDINATOR Unavailable Unavailable MAT, B MELECIO HEREDITARY CANCER PROGRAM COORDINATOR Unavailable Unavailable MAT, B MELECIO HEREDITARY CANCER PROGRAM COORDINATOR Unavailable Unavailable MAT, B MELECIO HEREDITARY CANCER PROGRAM COORDINATOR Unavailable Unavailable MAT, B MELECIO HEREDITARY CANCER PROGRAM COORDINATOR Unavailable Unavailable MAT, B MLEECIO HEREDITARY CANCER PROGRAM COORDINATOR Unavailable Unavailable MAT, B MELECIO HEREDITARY CANCER PROGRAM COORDINATOR Unavailable Unavailable MAT, B MELECIO HEREDITARY CANCER PROGRAM COORDINATOR Unavailable Unavailable MAT, B MELECIO HEREDITARY CANCER PROGRAM COORDINATOR Unavailable Unavailable MAT, B MELECIO HEREDITARY CANCER PROGRAM COORDINATOR Unavailable Unavailable MAT, B MELECIO HEREDITARY CANCER PROGRAM COORDINATOR Unavailable Unavailable MAT, B MELECIO HEREDITARY CANCER PROGRAM COORDINATOR Unavailable Unavailable MAT, B MELECIO HEREDITARY CANCER PROGRAM COORDINATOR Unavailable Unavailable MAT, B MELECIO HEREDITARY CANCER PROGRAM COORDINATOR Unavailable Unavailable MAT, B MELECIO HEREDITARY CANCER PROGRAM COORDINATOR Unavailable Unavailable MAT, B MELECIO HEREDITARY CANCER PROGRAM COORDINATOR Unavailable Unavailable MAT, B MELECIO HEREDITARY CANCER PROGRAM COORDINATOR Unavailable Unavailable MAT, B MELECIO HEREDITARY CANCER PROGRAM COORDINATOR Unavailable Unavailable MAT, B MELECIO HEREDITARY CANCER PROGRAM COORDINATOR Unavailable Unavailable MAT, B MELECIO HEREDITARY CANCER PROGRAM COORDINATOR Unavailable Unavailable MAT, B MELECIO HEREDITARY CANCER PROGRAM COORDINATOR Unavailable Unavailable MAT, B MELECIO HEREDITARY CANCER PROGRAM COORDINATOR Unavailable Unavailable MAT, B MELECIO HEREDITARY CANCER PROGRAM COORDINATOR Unavailable Unavailable MAT, B MELECIO HEREDITARY CANCER PROGRAM COORDINATOR Unavailable Unavailable MAT, B MELECIO HEREDITARY CANCER PROGRAM COORDINATOR Unavailable Unavailable MAT, B MELECIO HEREDITARY CANCER PROGRAM COORDINATOR Unavailable Unavailable MAT, B MELECIO HEREDITARY CANCER PROGRAM COORDINATOR Unavailable Unavailable MAT, B MELECIO HEREDITARY CANCER PROGRAM COORDINATOR Unavailable Unavailable MAT, B MELECIO HEREDITARY CANCER PROGRAM COORDINATOR Unavailable Unavailable MAT, B MELECIO HEREDITARY CANCER PROGRAM COORDINATOR Unavailable Unavailable MAT, B MELECIO HEREDITARY CANCER PROGRAM COORDINATOR Unavailable Unavailable MAT, B MELECIO HEREDITARY CANCER PROGRAM COORDINATOR Unavailable Unavailable MAT, B MELECIO HEREDITARY CANCER PROGRAM COORDINATOR Unavailable Unavailable MAT, B MELECIO HEREDITARY CANCER PROGRAM COORDINATOR Unavailable Unavailable MAT, B MELECIO HEREDITARY CANCER PROGRAM COORDINATOR Unavailable Unavailable MAT, B MELECIO HEREDITARY CANCER PROGRAM COORDINATOR Unavailable Unavailable MAT, B MELECIO HEREDITARY CANCER PROGRAM COORDINATOR Unavailable Unavailable MAT, B MELECIO HEREDITARY CANCER PROGRAM COORDINATOR Unavailable Unavailable MAT, B MELECIO HEREDITARY CANCER PROGRAM COORDINATOR Unavailable Unavailable MAT, B MELECIO HEREDITARY CANCER PROGRAM COORDINATOR Unavailable Unavailable MAT, B MELECIO HEREDITARY CANCER PROGRAM COORDINATOR Unavailable Unavailable MAT, B MELECIO HEREDITARY CANCER PROGRAM COORDINATOR Unavailable Unavailable MAT, B MELECIO HEREDITARY CANCER PROGRAM COORDINATOR Unavailable Unavailable MAT, B MELECIO HEREDITARY CANCER PROGRAM COORDINATOR Unavailable Unavailable MAT, B MELECIO HEREDITARY CANCER PROGRAM COORDINATOR Unavailable Unavailable MAT, B MELECIO HEREDITARY CANCER PROGRAM COORDINATOR Unavailable Unavailable MAT, B MELECIO HEREDITARY CANCER PROGRAM COORDINATOR Unavailable Unavailable MAT, B MELECIO HEREDITARY CANCER PROGRAM COORDINATOR Unavailable Unavailable MAT, B MELECIO HEREDITARY CANCER PROGRAM COORDINATOR Unavailable Unavailable MAT, B MELECIO HEREDITARY CANCER PROGRAM COORDINATOR Unavailable Unavailable MAT, B MELECIO HEREDITARY CANCER PROGRAM COORDINATOR Unavailable Unavailable MAT, B MELECIO HEREDITARY CANCER PROGRAM COORDINATOR Unavailable Unavailable MAT, B MELECIO HEREDITARY CANCER PROGRAM COORDINATOR Unavailable Unavailable MAT, B MELECIO HEREDITARY CANCER PROGRAM COORDINATOR Unavailable Unavailable MAT, B MELECIO HEREDITARY CANCER PROGRAM COORDINATOR Unavailable Unavailable MAT, B MELECIO HEREDITARY CANCER PROGRAM COORDINATOR Unavailable Unavailable MAT, B MELECIO HEREDITARY CANCER PROGRAM COORDINATOR Unavailable Unavailable MAT, B MELECIO HEREDITARY CANCER PROGRAM COORDINATOR Unavailable Unavailable MAT, B MELECIO HEREDITARY CANCER PROGRAM COORDINATOR Unavailable Unavailable Ivy, M Barratt PA Unavailable [...] Unavailable Ivy, M Barratt PA Unavailable Unavailable Bedford, V BRAD PA-C Unavailable Unavailable Pankaj, V BRAD PA-C Unavailable Unavailable Pankaj, V BRAD PA-C Unavailable Unavailable Bedford, V BRAD PA-C Unavailable Unavailable Bedford, V BRAD PA-C Unavailable Unavailable Bedford, V BRAD PA-C Unavailable Unavailable Bedford, V BRAD PA-C Unavailable Unavailable Bedford, V BRAD PA-C Unavailable Unavailable Pankaj, V BRAD PA-C Unavailable Unavailable Bedford, V BRAD PA-C Unavailable Unavailable Bedford, V BRAD PA-C Unavailable Unavailable Bedford, V BRAD PA-C Unavailable Unavailable Bedford, V BRAD PA-C Unavailable Unavailable Bedford, V BRAD PA-C Unavailable Unavailable Mir Jang [...] Unavailable Laine, Mir Ma MD Unavailable Unavailable Aline, Mir Ma MD Unavailable Unavailable Laine, Mir [...] is protected by Article 27-F of the [facility] Public Health law. If you continue you may have access to information: Regarding HIV / AIDS; Provided by facilities licensed or operated by the [facility] Office of Mental Health; or Provided by the [place] Office for People With Developmental Disabilities. If such information is present, then the following [facility] mandated warning applies: This information has been [...] Source(s) Unknown Unknown Problem MEDENT ([facility] [employer]) Unknown Male Problem MEDENT ([facility]) Unknown Unknown Problem MEDENT ([facility]) Encounters Encounter Providers Location Date Indications Data Source(s ) Office Visit Attender: Niesha FRANK PA-C Physical Therapy 07/22/2021 01:15:00 PM EDT MEDENT ([facility]) Office Visit, Est Pt., Level 3 PC [address] [place] [address] 04/30/2021 12:00:00 AM EDT eCW1 ([facility]) Unknown [address] [facility] [id number] 04/29/2021 12:00:00 AM EDT eCW1 ([facility]) Unknown [address] [facility] [id number] 04/11/2021 12:00:00 AM EDT eCW1 ([facility]) Outpatient Attender: BRAD Lira PA-C [email or web address] 12:00:00 AM EDT - 04/09/2021 08:25:28 AM EDT [facility] Outpatient [address] [facility] [id number] 04/02/2021 12:00:00 AM EDT eCW1 ([facility]) Unknown [address] [facility] [id number] 04/02/2021 12:00:00 AM EDT eCW1 ([facility]) Outpatient Attender: Nereyda Means MDA dmitter: Nereyda Means MDReferrer: Nereyda Means MD [email or web address] 03/28/2021 06:59:00 AM EDT - 03/28/2021 01:08:00 PM EDT [facility] Patient discharged. Outpatient [address] [facility] [address] 03/19/2021 12:00:00 AM EDT eCW1 ([facility]) Outpatient Attender: BRAD [email or web address].[email or web address] 12:00:00 AM EDT - 03/12/2021 09:03:36 AM EDT [facility] Outpatient Attender: MELECIO RIVERO NP Physical Therapy 09:15:00 AM EDT MED[facility] ([facility]) Outpatient Referrer: Yaz [email or web address] 04/2021 12:06:40 PM EDT - 03/05/2021 02:05:28 PM EDT [facility] Outpatient Attender: Mildred Richard MD [facility] office [facility] 02/14/2021 01:00:00 PM EDT MEDENT ([facility]) Outpatient Attender: Yaz Salinas MDReferrer: Evin LAMAR.[email or web address] 01/24/2021 02:48:45 PM EDT - 01/24/2021 04:09:53 PM EDT [facility] Outpatient Referrer: Bairon Melgar MD MOB-[email or web address].[email or web address] 01/24/20 08:29:04 AM EDT - 01/23/2021 08:29:07 AM EDT [facility] Office Visit Attender: Niesha FRANK PA-C Physical Therapy 01/17/2021 09:45:00 AM EDT MED[facility] ([facility]) [place] [address] [facility] [address] 01/15/2021 12:00:00 AM EDT eCW1 ([facility]) Outpatient Attender: Bairon Melgar MDAdmit ter: Bairon Melgar MDReferrer: Bairon Melgar MD [email or web address] 12/25/2020 02:28:12 PM EDT - 01/28/2021 12:03:00 PM EDT [facility] Patient discharged. [place]patient [address] [facility] [address] 12/11/2020 12:00:00 AM EDT eCW1 ([facility]) Outpatient Attender: MELECIO RIVERO NP Physical Therapy 09:30:00 AM EST MEDENT ([facility]) OFFICE OUTPATIENT VISIT 15 MINUTES Attender: Niesha FRANK PA-C Physical Therapy 11/30/2020 01:15:00 PM EST MED[facility] ([facility]) [place] [address] [facility] [address] 11/13/2020 12:00:00 AM EST eCW1 ([facility]) [place] [address] [facility] [address] 11/05/2020 12:00:00 AM EST eCW1 ([facility]) [place] [address] [facility] [address] 10/23/2020 12:00:00 AM EST eCW1 ([facility]) [place] [address] [facility] [address] 10/16/2020 12:00:00 AM EST eCW1 ([facility]) [place] [address] [facility] [address] 10/09/2020 12:00:00 AM EST eCW1 ([facility]) [place] [address] [facility] [address] 10/01/2020 12:00:00 AM EST eCW1 ([facility]) [place] [address] [facility] [address] 10/01/2020 12:00:00 AM EST eCW1 ([facility]) Office Visit Attender: Mildred Richard MD Main office - [facility] 09/25/2020 01:45:00 PM EST MED[facility] ([facility]) [place] [address] [facility] [address] 09/10/2020 12:00:00 AM EST eCW1 ([facility]) Unknown [address] [facility] [place] [address] 09/09/2020 12:00:00 AM EST eCW1 ([facility]) Outpatient Attender: MELECIO RIVERO NP Physical Therapy 12:15:00 PM EST MED[facility] ([facility]) Outpatient [address] [facility] [place] [address] 08/21/2020 12:00:00 AM EST eCW1 ([facility]) OFFICE OUTPATIENT VISIT 15 MINUTES Attender: Niesha FRANK PA-C Physical Therapy 08/17/2020 05:00:00 PM EST MED[facility] ([facility]) Outpatient [address] [facility] [place] [address] 08/06/2020 12:00:00 AM EST eCW1 ([facility]) Outpatient [address] [facility] [place] [address] 07/18/2020 12:00:00 AM EDT eCW1 ([facility]) Unknown [address] [facility] [place] [address] 07/18/2020 12:00:00 AM EDT eCW1 ([facility]) Unknown [address] [facility] [place] [address] 07/18/2020 12:00:00 AM EDT eCW1 ([facility]) Outpatient [address] [facility] [place] [address] 06/27/2020 12:00:00 AM EDT eCW1 ([facility]) Outpatient Attender: Lorenzo BELLAMY Physical Therapy 01:00:00 PM EDT MED[facility] ([facility]) Outpatient Attender: MELECIO RIVERO NP Physical Therapy 02:15:00 PM EDT MED[facility] ([facility]) Immunizations Vaccine Date Status Description Data Source(s) COVID-19 VACCINE Moderna 11/15/2020 12:00:00 AM EST completed [place] Vaccine Series Complete: YESThis Data wa s Submitted to [facility] Via [employer]. 11/15/2020 12:00:00 AM EST completed <td I D="[id number]">Covid-19 (Moderna)</td><td>11/15/2020, 10/18/2020</td><td></td> [facility] COVID-19 VACCINE Moderna 10/18/2020 12:00:00 AM EST completed [employer] Vaccine Series Complete: NOThis Data was Submitted to [facility] Via [employer]. 10/18/2020 12:00:00 AM EST completed <td I D="[id number]">Covid-19 (Moderna)</td><td>11/15/2020, 10/18/2020</td><td></td> [facility] influenza, recombinant, quadrIvalent,injectable, prese rvative free 06/27/2020 04:07:00 PM EDT completed eCW1 ([facility]) influenza, recombinant, quadrIvalent,injectable, prese rvative free 06/27/2020 04:07:00 PM EDT completed eCW1 ([facility]) influenza, recombinant, quadrIvalent,injectable, prese rvative free 06/27/2020 04:07:00 PM EDT completed eCW1 ([facility]) influenza, recombinant, quadrIvalent,injectable, prese rvative free 06/27/2020 04:07:00 PM EDT completed eCW1 ([facility]) influenza, recombinant, quadrIvalent,injectable, prese rvative free 06/27/2020 04:07:00 PM EDT completed eCW1 ([facility]) influenza, recombinant, quadrIvalent,injectable, prese rvative free 06/27/2020 04:07:00 PM EDT completed eCW1 ([facility]) influenza, recombinant, quadrIvalent,injectable, prese rvative free 06/27/2020 04:07:00 PM EDT completed eCW1 ([facility]) influenza, recombinant, quadrIvalent,injectable, prese rvative free 06/27/2020 04:07:00 PM EDT completed eCW1 ([facility]) influenza, recombinant, quadrIvalent,injectable, prese rvative free 06/27/2020 04:07:00 PM EDT completed eCW1 ([facility]) influenza, recombinant, quadrIvalent,injectable, prese rvative free 06/27/2020 04:07:00 PM EDT completed eCW1 ([facility]) influenza, recombinant, quadrIvalent,injectable, prese rvative free 06/27/2020 04:07:00 PM EDT completed eCW1 ([facility]) influenza, recombinant, quadrIvalent,injectable, prese rvative free 06/27/2020 04:07:00 PM EDT completed eCW1 ([facility]) influenza, recombinant, quadrIvalent,injectable, prese rvative free 06/27/2020 04:07:00 PM EDT completed eCW1 ([facility]) influenza, recombinant, quadrIvalent,injectable, prese rvative free 06/27/2020 04:07:00 PM EDT completed eCW1 ([facility]) influenza, recombinant, quadrIvalent,injectable, prese rvative free 06/27/2020 04:07:00 PM EDT completed eCW1 ([facility]) influenza, recombinant, quadrIvalent,injectable, prese rvative free 06/27/2020 04:07:00 PM EDT completed eCW1 ([facility]) influenza, recombinant, quadrIvalent,injectable, prese rvative free 06/27/2020 04:07:00 PM EDT completed eCW1 ([facility]) influenza, recombinant, quadrIvalent,injectable, prese rvative free 06/27/2020 04:07:00 PM EDT completed eCW1 ([facility]) influenza, recombinant, quadrIvalent,injectable, prese rvative free 06/27/2020 04:07:00 PM EDT completed eCW1 ([facility]) influenza, recombinant, quadrIvalent,injectable, prese rvative free 06/27/2020 04:07:00 PM EDT completed eCW1 ([facility]) influenza, recombinant, quadrIvalent,injectable, prese rvative free 06/27/2020 04:07:00 PM EDT completed eCW1 ([facility]) influenza, recombinant, quadrIvalent,injectable, prese rvative free 06/27/2020 04:07:00 PM EDT completed eCW1 ([facility]) influenza, recombinant, quadrIvalent,injectable, prese rvative free 06/27/2020 04:07:00 PM EDT completed eCW1 ([facility]) Pneumococcal conjugate PCV 06/27/2020 02:09:00 PM EDT completed eCW1 ([facility]) Pneumococcal conjugate PCV 06/27/2020 02:09:00 PM EDT completed eCW1 ([facility]) Pneumococcal conjugate PCV 06/27/2020 02:09:00 PM EDT completed eCW1 ([facility]) Pneumococcal conjugate PCV 06/27/2020 02:09:00 PM EDT completed eCW1 ([facility]) Pneumococcal conjugate PCV 06/27/2020 02:09:00 PM EDT completed eCW1 ([facility]) Pneumococcal conjugate PCV 06/27/2020 02:09:00 PM EDT completed eCW1 ([facility]) Pneumococcal conjugate PCV 06/27/2020 02:09:00 PM EDT completed eCW1 ([facility]) Pneumococcal conjugate PCV 06/27/2020 02:09:00 PM EDT completed eCW1 ([facility]) Pneumococcal conjugate PCV 06/27/2020 02:09:00 PM EDT completed eCW1 ([facility]) Pneumococcal conjugate PCV 06/27/2020 02:09:00 PM EDT completed eCW1 ([facility]) Pneumococcal conjugate PCV 13 06/27/2020 02:09:00 PM EDT completed eCW1 ([facility]) Pneumococcal conjugate PCV 13 06/27/2020 02:09:00 PM EDT completed eCW1 ([facility]) Pneumococcal conjugate PCV 13 06/27/2020 02:09:00 PM EDT completed eCW1 ([facility]) Pneumococcal conjugate PCV 13 06/27/2020 02:09:00 PM EDT completed eCW1 ([facility]) Pneumococcal conjugate PCV 13 06/27/2020 02:09:00 PM EDT completed eCW1 ([facility]) Pneumococcal conjugate PCV 13 06/27/2020 02:09:00 PM EDT completed eCW1 ([facility]) Pneumococcal conjugate PCV 13 06/27/2020 02:09:00 PM EDT completed eCW1 ([facility]) Pneumococcal conjugate PCV 13 06/27/2020 02:09:00 PM EDT completed eCW1 ([facility]) Pneumococcal conjugate PCV 13 06/27/2020 02:09:00 PM EDT completed eCW1 ([facility]) Pneumococcal conjugate PCV 13 06/27/2020 02:09:00 PM EDT completed eCW1 ([facility]) Pneumococcal conjugate PCV 13 06/27/2020 02:09:00 PM EDT completed eCW1 ([facility]) Pneumococcal conjugate PCV 13 06/27/2020 02:09:00 PM EDT completed eCW1 ([facility]) Pneumococcal conjugate PCV 13 06/27/2020 02:09:00 PM EDT completed eCW1 ([facility]) Medications Medication Brand Name Start Date Product Form Dose Route Admi nistrative Instructions Pharmacy Instructions Status Indications Reaction Description Data Source(s) 6 ML HYLAN G-F 20 8 MG/ML Prefilled Syringe [Synvisc] Synvis c One 07/22/2021 12:00:00 AM EDT active M EDENT ([facility]) 29 gauge x 1/2" 07/13/2021 12:00:00 [...] Prednisone 04/03/2021 12:00:00 AM EDT active MEDENT ([facility] ) Flonase Allergy Relief 50 MCG/ACT Flonase Allergy Relief 50 MCG/ACT 04/02/2021 12:00:00 AM EDT active Flonase Allergy Relief 50 MCG/ACT eCW1 ([facility]) Flonase Allergy Relief 50 MCG/ACT Flonase Allergy Relief 50 MCG/ACT 04/02/2021 12:00:00 AM EDT active Flonase Allergy Relief 50 MCG/ACT eCW1 ([facility]) Flonase Allergy Relief 50 MCG/ACT Flonase Allergy Relief 50 MCG/ACT 04/02/2021 12:00:00 AM EDT active Flonase Allergy Relief 50 MCG/ACT eCW1 ([facility]) 50 mcg/actuation 04/02/2021 12:00:00 AM EDT spray,suspension 16 SPRAY TWO SPRAYS IN EACH NOSTRIL EVERY DAY SPRAY TWO SPRAYS IN EACH NOSTRIL EVERY DAY SOLD: 04/02/2021 [facility] Fluticasone propionate 0.05 MG/ACTUAT Metered Dose [place] 50 mcg/actuation FLUTICASONE PROPIONATE 04/02/2021 12:00:00 AM [...] Drugs fluticasone (FLONASE) 50 MCG/ACT nasal spray [id number] 04/02/2021 12:00:00 AM EDT active SPRAY TWO SPRAYS IN EACH NOSTRIL EVERY DAY [facility] Fluticasone propionate 0.05 MG/ACTUAT Metered Dose [place] 50 mcg/actuation FLUTICASONE PROPIONATE 04/02/2021 12:00:00 AM EDT spray,suspension 16 SPRAY TWO SPRAYS IN EACH NOSTRIL EVERY DAY SPRAY TWO SPRAYS IN EACH NOSTRIL EVERY DAY SOLD: 06/12/2021 [facility] Flonase Allergy Relief 50 MCG/ACT Flonase Allergy Relief 50 MCG/ACT 04/02/2021 12:00:00 AM EDT active Flonase Allergy Relief 50 MCG/ACT eCW1 ([facility]) Flonase Allergy Relief 50 MCG/ACT Flonase Allergy Relief 50 MCG/ACT 04/02/2021 12:00:00 AM EDT active Flonase Allergy Relief 50 MCG/ACT eCW1 ([facility]) Fluticasone propionate 0.05 MG/ACTUAT Metered Dose [place] 50 mcg/actuation FLUTICASONE PROPIONATE 04/02/2021 12:00:00 AM [...] HCL 03/26/2021 12:00:00 AM EDT completed MEDENT ([facility] ) 0.005 % 03/26/2021 [...] active Amitriptyline HCl 10 MG e 1 ([facility]) 10 mg 03/19/2021 12:00:00 AM EDT tablet [...] (300mg total) the night before the procedure. [facility] 75 mg 03/12/2021 12:00:00 AM EDT [...] Take 1,0 00 Units by mouth daily [facility] latanoprost 0.05 MG/ML Ophthalmic Soluti on latanoprost (XALATAN) 0.005 % ophthalmic solution latanoprost (XALATAN) 0.005 % ophthalmic solution 12/27 12:00:00 AM EDT active INSTILL ONE DROP INTO BOTH EYES EVERY NIGHT [facility] carvedilol 25 MG Oral Tablet carvedilol (COREG) 25 MG tablet carvedilol (COREG) 25 MG tablet 01/04/2021 12:00:00 AM EDT 25 mg Oral activ e Take 25 mg by mouth 2 (two) times a day [facility] Magnesium Oxide 400 MG Oral Tablet magnesium oxide (MA G-OX) 400 MG tablet magnesium oxide (MAG-OX) 400 MG tablet 01/03/2021 12:00:00 AM EDT active TAKE TWO TABLETS BY MOUTH TWICE A DAY [facility] 100 unit/mL 01/02/2021 12:00:00 AM EDT insulin pen 45 INJECT UNDER SKIN DIRECTED PER SLIDING SCALE MAX 53UNITS/DAY INJECT UNDER SKIN DIRECTED PER SLIDING SCALE MAX 53UNITS/DAY SOLD: 01/02/2021 [facility] cinacalcet 30 MG Oral Tablet cinacalcet (SENSIPAR) 30 MG tablet cinacalcet (SENSIPAR) 30 MG tablet 01/02/2021 12:00:00 AM EDT active TAKE 1 TABLET BY MOUTH 5 TIMES PER WEEK THURSDAY THROUGH THURSDAY [facility] 3 ML Insulin Lispro 100 UNT/ML Pen Injec tor [Humalog] Huma[facility] KwikPen 100 UNIT/ML SOPN HumaLOG KwikPen 100 UNIT/ML SOPN 01/02/2021 12:00:00 AM EDT active INJECT UNDER SKIN DIRE CTED PER SLIDING SCALE MAX 53UNITS/DAY [facility] 100 unit/mL 01/02/2021 12:00:00 AM EDT insulin pen 45 INJECT UNDER SKIN DIRECTED PER SLIDING SCALE MAX 53UNITS/DAY INJECT UNDER SKIN DIRECTED PER SLIDING SCALE MAX 53UNITS/DAY SOLD: 05/15/2021 [facility] glimepiride 4 MG Oral Tablet GLIMEPIRIDE 12/03/2020 12:00:00 AM EST t ablet 180 TAKE ONE TABLET BY MOUTH TWICE A DAY TAKE ONE TABLET BY MOUT H TWICE A DAY SOLD: 03/01/2021 [facility] glimepiride 4 MG Oral Tablet glimepiride (AMARYL) 4 MG tablet glimepiride (AMARYL) 4 MG tablet 12/03/2020 12:00:00 AM EST 4 mg Oral active Take 4 mg by mouth 2 (two) times a day [facility] glimepiride 4 MG Oral Tablet GLIMEPIRIDE 12/03/2020 12:00:00 AM EST t ablet 180 TAKE ONE TABLET BY MOUTH TWICE A DAY TAKE ONE TABLET BY MOUT H TWICE A DAY SOLD: 12/03/2020 [facility] 80 mg 12/01/2020 12:00:00 AM EST tablet 90 TAKE ONE TABLET BY MOUTH EVERY DAY IN THE EVENING TAKE ONE TABLET BY MOUTH EVERY DAY IN THE EVENING SOLD : 12/01/2020 [facility] Simvastatin 80 MG Oral Tablet simvastatin (ZOCOR) 80 M G tablet simvastatin (ZOCOR) 80 MG tablet 12/01/2020 12:00:00 AM EST 80 mg Oral active Take 80 mg by mouth [facility] gabapentin 600 MG Oral Tablet gabapentin (NEURONTIN) 6 00 MG tablet gabapentin (NEURONTIN) 600 MG tablet 11/20/2020 12:00:00 AM EST 600 mg Oral active Take 600 mg by mouth 3 (three) times a day [facility] 600 mg 11/20/2020 12:00:00 AM EST tablet 270 TAKE ONE TABLET BY MOUTH THREE TIMES A DAY TAKE ONE TABLET BY MOUTH THREE TIMES A DAY SOLD: 11/20/2020 [facility] 3 ML liraglutide 6 MG/ML Pen Injector [Victoza] Victoz a 18 MG/3ML SOPN Victoza 18 MG/3ML SOPN 11/17/2020 12:00:00 AM EST act vero INJECT 1.8MG UNDER SKIN ONCE DAILY [facility] 1,250 mcg (50,000 unit) 11/10/2020 12:00:00 AM EST capsule 6 TAKE 1 CAPSULE BY MOUTH EVERY WEEK FOR 6 WEEKS TAKE 1 CAPSULE BY MOUTH EVERY WEEK FOR 6 WEEKS SOLD: 11/11/2020 [facility] Ergocalciferol 81332 UNT Oral Capsule vi tamin D, Ergocalciferol, 1.25 MG (70870 UT) CAPS vitamin D, Ergocalciferol, 1.25 MG (30859 UT) CAPS 12:00:00 AM EST aborted TAKE 1 CAPSULE B Y MOUTH EVERY WEEK FOR 6 WEEKS [facility] carvedilol 25 MG Oral Tablet CARVEDILOL 11/08/2020 12:00:00 AM EST tab let 60 TAKE 1 TABLET BY MOUTH TWICE A DAY TAKE 1 TABLET BY MOUTH TWICE A DAY SOLD: 12/07/2020 [facility] carvedilol 25 MG Oral Tablet CARVEDILOL 11/08/2020 12:00:00 AM EST tab let 60 TAKE 1 TABLET BY MOUTH TWICE A DAY TAKE 1 TABLET BY MOUTH TWICE A DAY SOLD: 04/03/2021 [facility] carvedilol 25 MG Oral Tablet CARVEDILOL 11/08/2020 12:00:00 AM EST tab let 60 TAKE 1 TABLET BY MOUTH TWICE A DAY TAKE 1 TABLET BY MOUTH TWICE A DAY SOLD: 03/07/2021 [facility] carvedilol 25 MG Oral Tablet CARVEDILOL 11/08/2020 12:00:00 AM EST tab let 60 TAKE 1 TABLET BY MOUTH TWICE A DAY TAKE 1 TABLET BY MOUTH TWICE A DAY SOLD: 11/08/2020 [facility] carvedilol 25 MG Oral Tablet CARVEDILOL 11/08/2020 12:00:00 AM EST tab let 60 TAKE 1 TABLET BY MOUTH TWICE A DAY TAKE 1 TABLET BY MOUTH TWICE A DAY SOLD: 02/05/2021 [facility] carvedilol 25 MG Oral Tablet CARVEDILOL [...] Lispro 100 UNT/ML Pen Injector [Humalog] Beto Dwan 07/30/2020 12:00:00 AM EST active MEDENT ([facility]) 1 mg 07/19/2020 [...] {tablet_on_the_tongue_and_allow_to_dissolve} active Zofran ODT 4 MG eCW1 ([facility]) Zofran ODT 4 MG UNK 07/18/2020 12:00:00 AM EDT 1.0 {tablet_on_the_tongue_and_allow_to_dissolve} active Zofran ODT 4 MG eCW1 ([facility]) Zofran ODT 4 MG UNK 07/18/2020 12:00:00 AM EDT 1.0 {tablet_on_the_tongue_and_allow_to_dissolve} active Zofran ODT 4 MG eCW1 ([facility]) Zofran ODT 4 MG UNK 07/18/2020 12:00:00 AM EDT 1.0 {tablet_on_the_tongue_and_allow_to_dissolve} active Zofran ODT 4 MG eCW1 ([facility]) Zofran ODT 4 MG UNK 07/18/2020 12:00:00 AM EDT 1.0 {tablet_on_the_tongue_and_allow_to_dissolve} active Zofran ODT 4 MG eCW1 ([facility]) Zofran ODT 4 MG UNK 07/18/2020 12:00:00 AM EDT 1.0 {tablet_on_the_tongue_and_allow_to_dissolve} active Zofran ODT 4 MG eCW1 ([facility]) Zofran ODT 4 MG UNK 07/18/2020 12:00:00 AM EDT 1.0 {tablet_on_the_tongue_and_allow_to_dissolve} active Zofran ODT 4 MG eCW1 ([facility]) Zofran ODT 4 MG UNK 07/18/2020 12:00:00 AM EDT 1.0 {tablet_on_the_tongue_and_allow_to_dissolve} active Zofran ODT 4 MG eCW1 ([facility]) Zofran ODT 4 MG K 07/18/2020 12:00:00 AM EDT 1.0 {tablet_on_the_tongue_and_allow_to_dissolve} active Zofran ODT 4 MG eCW1 ([facility]) Zofran ODT 4 MG K 07/18/2020 12:00:00 AM EDT 1.0 {tablet_on_the_tongue_and_allow_to_dissolve} active Zofran ODT 4 MG eCW1 ([facility]) Zofran ODT 4 MG [facility] 07/18/2020 12:00:00 AM EDT 1.0 {tablet_on_the_tongue_and_allow_to_dissolve} active Zofran ODT 4 MG eCW1 ([facility]) Zofran ODT 4 MG [facility] 07/18/2020 12:00:00 AM EDT 1.0 {tablet_on_the_tongue_and_allow_to_dissolve} active Zofran ODT 4 MG eCW1 ([facility]) Zofran ODT 4 MG K 07/18/2020 12:00:00 AM EDT 1.0 {tablet_on_the_tongue_and_allow_to_dissolve} active Zofran ODT 4 MG eCW1 ([facility]) Zofran ODT 4 MG K 07/18/2020 12:00:00 AM EDT 1.0 {tablet_on_the_tongue_and_allow_to_dissolve} active Zofran ODT 4 MG eCW1 ([facility]) Zofran ODT 4 MG K 07/18/2020 12:00:00 AM EDT 1.0 {tablet_on_the_tongue_and_allow_to_dissolve} active Zofran ODT 4 MG eCW1 ([facility]) Zofran ODT 4 MG K 07/18/2020 12:00:00 AM EDT 1.0 {tablet_on_the_tongue_and_allow_to_dissolve} active Zofran ODT 4 MG eCW1 ([facility]) Zofran ODT 4 MG K 07/18/2020 12:00:00 AM EDT 1.0 {tablet_on_the_tongue_and_allow_to_dissolve} active Zofran ODT 4 MG eCW1 ([facility]) Zofran ODT 4 MG [facility] 07/18/2020 12:00:00 AM EDT 1.0 {tablet_on_the_tongue_and_allow_to_dissolve} active Zofran ODT 4 MG eCW1 ([facility]) Zofran ODT 4 MG [facility] 07/18/2020 12:00:00 AM EDT 1.0 {tablet_on_the_tongue_and_allow_to_dissolve} active Zofran ODT 4 MG eCW1 ([facility]) 4 mg 07/18/2020 12:00:00 AM EDT tablet,disintegrating 1 2 ALLOW 1 TABLET TO DISSOLVE ON THE TONGUE EVERY 8 HOURS NEEDED FOR NAUSEA AND VOMITING FOR 4 DAYS ALLOW 1 TABLET TO DISSOLVE ON THE TONGUE EVERY 8 HOURS NEEDED FOR NAUSEA AND VOMITING FOR 4 DAYS SOLD: 07/18/2020 [facility] Zofran ODT 4 MG [facility] 07/18/2020 12:00:00 AM EDT 1.0 {tablet_on_the_tongue_and_allow_to_dissolve} active Zofran ODT 4 MG eCW1 ([facility]) Zofran ODT 4 MG [facility] 07/18/2020 12:00:00 AM EDT 1.0 {tablet_on_the_tongue_and_allow_to_dissolve} active Zofran ODT 4 MG eCW1 ([facility]) Zofran ODT 4 MG [facility] 07/18/2020 12:00:00 AM EDT 1.0 {tablet_on_the_tongue_and_allow_to_dissolve} active Zofran ODT 4 MG eCW1 ([facility]) 4 mg 07/11/2020 12:00:00 AM EDT tablet [...] Golytely 07/10/2020 12:00:00 AM EDT active MEDENT ([facility], ) Magnesium Hydroxide 80 MG/ML Oral Suspension Milk Of Magnesi a 07/10/2020 12:00:00 AM EDT ORAL active M EDENT ([facility], ) 33 gauge 07/03/2020 12:00:00 AM EDT [...] 07/02/2020 12:00:00 AM EDT activ e MEDENT ([facility]) [place] Blood Glucose Test 07/02/2020 12:00:00 AM EDT active MEDENT ([facility]) 200 unit/mL (3 mL) 06/26/2020 12:00:00 [...] BY MOUTH TWICE A DAY SOLD: 08/22/2020 [facility] carvedilol 25 MG Oral Tablet CARVEDILOL 04/30/2020 12:00:00 AM EDT tab let 60 TAKE 1 TABLET BY MOUTH TWICE A DAY TAKE 1 TABLET BY MOUTH TWICE A DAY SOLD: 05/30/2020 [facility] 29 gauge x 1/2" 04/16/2020 12:00:00 AM EDT needle 600 USE DIRECTED 6 TIMES A DAY MAXIMUM DAILY DOSE = 6 USE DIRECTED 6 TIMES A DAY MAXIMUM DA DENISE DOSE = 6 SOLD: 07/13/2020 [facility] 300 mg 03/15/2020 12:00:00 AM EDT tablet 90 TAKE ONE TABLET BY MOUTH EVERY DAY TAKE ONE TABLET BY MOUTH EVERY DAY SOLD: 06/12/2020 [facility] 100 unit/mL (3 mL) 03/13/2020 12:00:00 AM EDT insulin pen 15 INJECT DIRECTED MAXIMUM DAILY DOSE = 53 UNITS INJECT DIRECTED MAXIMUM DAILY DOSE = 53 UNITS SOLD: 06/05/2020 [facility] 80 mg 12/17/2019 12:00:00 AM EDT tablet 90 TAKE ONE TABLET BY MOUTH EVERY EVENING TAKE ONE TABLET BY MOUTH EVERY EVENING SOLD: 06/12/2020 [facility] Oxymetazoline HCl (NASAL SPRAY LONG ACTING NA) drug or medication Nasal aborted into each nostril [facility] 60 ACTUAT exenatide 0.01 MG/ACTUAT Pen I njector [Byetta] Exenatide (Byetta 10 MCG Pen) 10 MCG/0.04ML SOPN Exenatide (Byetta 10 MCG Pen) 10 MCG/0.04ML SOPN Subcutaneous aborted Inject unde r the skin [facility] Insurance Providers Payer name Policy type / Coverage type Policy ID Covered republican ID Covered republican's relationship to gunn Policy Gunn Plan Information MEDICARE [id number] SP [id number] MEDICARE [id number] Lida [id number] MEDICARE [id number] Lida [id number] MEDICARE A [id number] Self [id number] MEDICARE [id number] MEDICARE [id number] SP [id number] A MEDICAID [id number] SP [id number] [place] [id number] Self 1 [id number] [place] Medicare Primary [id number] Self 1 [id number] [place] Medicare Primary [id number] Self [id number] [place] Medicare Primary [id number] Self [id number] [place] Primary [id number] Self [id number] Medicare [place] Medicare Primary [id number] Self 1 [id number] Medicare [place] Medicare Primary [id number] Self 1 [id number] Medicare [place] Medicare Primary [id number] Self 1 [id number] Medicare [place] Medicare Primary [id number] Self 1 [id number] Medicare [place] Medicare Primary [id number] Self [id number] Medicaid [place] Medigap Part B [id number] Self [id number] Medicare [place] Medicare Primary [id number] Self 1 [id number] Medicare [place] Medicare Primary [id number] Self 1 [id number] MEDICARE [id number] SP [id number] A MEDICAID [id number] SP [id number] MEDICAID [id number] SP [id number] MEDICAID [id number] SP [id number] MEDICAID M [id number] Self [id number] [facility] MEDICARE [id number] 1 [facility] MEDICARE [id number] Lida [id number] [facility] [id number] SP [id number] [facility] MEDICARE [id number] Lida [id number] [facility] MEDICARE [id number] MEDICAID [id number] Lida [id number] MEDICAID [id number] ANSI-Medicare Part B [id number] [facility] [id number] [facility] [id number] ANSI-Medicare Part B [id number] MEDICARE [id number] SP [id number] ANSI-Medicare Part B [id number] [facility] [id number] ANSI-Medicaid [id number] ANSI-Medicare Part B [id number] ANSI-Medicaid [id number] ANSI-Medicare Part B [id number] ANSI-Medicaid [id number] ANSI-Medicare Part B [id number] Medicaid [facility] Part B [id number] Self [id number] Medicare [place] Medicare Primary [id number] Self [id number] ANSI-Medicare Part B [id number] ANSI-Medicaid [id number] MEDICARE [id number] SP [id number] ANSI-Medicare Part B [id number] ANSI-Medicaid [id number] ANSI-Medicare Part B [id number] ANSI-Medicaid [id number] ANSI-Medicare Part B [id number] ANSI-Medicaid [id number] ANSI-Medicaid [id number] ANSI-Medicare Part B [id number] ANSI-Medicare Part B [id number] ANSI-Medicaid [id number] ANSI-Medicare Part B [id number] ANSI-Medicaid [id number] ANSI-Medicaid [id number] ANSI-Medicare Part B [id number] ANSI-Medicare Part B [id number] ANSI-Medicaid [id number] ANSI-Medicaid [id number] ANSI-Medicare Part B [id number] Medicaid [facility] Part B [id number] ...[id number] [id number] Self [id number] Medicare [place] Medicare Primary [id number] Self [id number] ANSI-Medicare Part B [id number] ANSI-Medicaid [id number] Medicaid [facility] Part B [id number] .[id number] Self [id number] Medicare [place] Medicare Primary [id number] Self [id number] ANSI-Medicare Part B [id number] ANSI-Medicaid [id number] ANSI-Medicare Part B [id number] ANSI-Medicaid [id number] ANSI-Medicare Part B [id number] ANSI-Medicaid [id number] ANSI-Medicaid [id number] ANSI-Medicare Part B [id number] ANSI-Medicaid [id number] ANSI-Medicare Part B [id number] ANSI-Medicare Part B [id number] ANSI-Medicaid [id number] SELF PAY ONLY 000 SP 000 ANSI-Medicare Part B [id number] ANSI-Medicaid [id number] ANSI-Medicare Part B [id number] ANSI-Medicaid [id number] ANSI-Medicaid [id number] ANSI-Medicare Part B [id number] [facility]-Medicare Part B [id number] ANSI-Medicaid [id number] ANS-Medicare Part B [id number] ANSI-Medicaid [id number] [facility]-Medicare Part B [id number] ANSI-Medicaid [id number] Medicaid [facility] Part B [id number] Self [id number] [place] Primary [id number] Self [id number] MEDICARE C [id number] S [id number] A Medicaid [facility] Part B [id number] Self [id number] [place] Primary [id number] Self [id number] [facility] [id number] S [id number] Medicaid [facility] Part B [id number] Self [id number] [place] Medicare Primary [id number] Self [id number] MEDICAID -I/P [id number] 18 [id number] MEDICARE PART A -I/P [id number] 18 [id number] [facility] C [id number] S [id number] MEDICAID -O/P EMERGENCY ROOM [id number] MEDICARE PART A -O/P [id number] 18 [id number] MEDICAID-O/P UNAVAILABLE UNAVA ILABLE Medicaid [facility] Part B [id number] Self [id number] Medicare [place]/[facility] Medicare Primary [id number] Self [id number] MEDICAID [id number] SP [id number] MEDICARE - [place] MCR [id number] S [id number] [facility] MEDICAID [id number] SP [id number] U [id number] A [facility] MCRO [id number] SP [id number] [id number] SP [id number] [place] [id number] SP [id number] [facility] [id number] SP [id number] MEDICARE [id number] SP [id number] [facility](MCAID) O [id number] S [id number] MEDICARE C [id number] S [id number] MEDICAID M [id number] S [id number] MEDICAID [id number] SP [id number] ANSI-Medicaid [id number] ANSI-Medicare Part B [id number] ANSI-Medicare Part B [id number] ANSI-Medicaid [id number] ANSI-Medicaid [id number] ANSI-Medicare Part B [id number] ANSI-Medicare Part B [id number] ANSI-Medicaid [id number] ANSI-Medicare Part B [id number] ANSI-Medicaid [id number] ANSI-Medicare Part B [id number] ANSI-Medicaid [id number] ANSI-Medicare Part B [id number] ANSI-Medicaid [id number] ANSI-Medicare Part B [id number] ANSI-Medicaid [id number] ANSI-Medicare Part B [id number] ANSI-Medicaid [id number] ANSI-Medicaid [id number] ANSI-Medicare Part B [id number] ANSI-Medicaid [id number] [facility]-Medicare Part B [id number] Problems, Conditions, and Diagnoses Code Display Name Description Problem Type Effective Dates Data Source(s) Z01.818 Encounter for other preprocedural examin ation Encounter for other preprocedural examin Diagnosis 04/09/2021 07:57:37 AM EDT [facility] E78.2 Mixed hyperlipidemia Mixed hyperlipidemia Diagnosis 04/09/2021 07:57:37 AM EDT [facility] I51.7 Cardiomegaly Cardiomegaly Diagnosis 04/09/2021 07:57:37 A M EDT [facility] I10 Essential (primary) hypertension Essential (primary) h ypertension Diagnosis 03/28/2021 06:59:00 AM EDT [facility] Z79.4 alf (current) use of insulin alf (cu rrent) use of insulin Diagnosis 03/28/2021 06:59:00 AM EDT [facility] N18.30 Chronic kidney disease, stage 3 unspecif ied Chronic kidney disease, stage 3 unspecif Diagnosis 03/28/2021 06:59:00 AM EDT [facility] E11.22 Type 2 diabetes mellitus with diabetic c hronic kidney disease Type 2 diabetes mellitus with diabetic c Diagnosis 03/28/2021 06:59:00 AM EDT [facility] R07.89 Other chest pain Other chest pain Diagnosis 03/28/2021 06 :59:00 AM EDT [facility] K21.9 Gastro-esophageal reflux disease without esophagitis Gastro-esophageal reflux disease without Diagnosis 01/28/2021 10:21:00 AM EDT [facility] U07.1 COVID-19 COVID-19 Diagnosis 01/23/2021 08:29:04 AM ED T [facility] J31.0 [id number] Rhinitis, unspecified type Problem 12:00:00 AM EDT eCW1 ([facility]) G43.019 [id number] Intractable migraine without aura and without status migrainosus Problem 03/19/2021 12:00:00 AM EDT eCW1 ([facility]) Z01.818 Preoperative clearance Preoperative clearance [id number] 01/24/2021 12:00:00 AM EDT [facility] E11.22 Type 2 diabetes mellitus wit h chronic kidney disease, with long-term current use of insulin Type 2 diabetes mellitus with chronic ki dney disease, with long-term current use of insulin [id number] 01/24/2021 12:00:00 AM EDT [facility] I10 Essential hypertension Essential hypertension [id number] 01/24/2021 12:00:00 AM EDT [facility] E78.2 Mixed hyperlipidemia Mixed hyperlipidemia [id number] 01/24/2021 12:00:00 AM EDT [facility] R07.89 Chest discomfort Chest discomfort [id number] 01/24/2021 12 :00:00 AM EDT [facility] I51.7 Cardiomegaly Cardiomegaly [id number] 01/20/2021 12:00:00 A M EDT [facility] H40.9 Glaucoma Glaucoma of both eyes, unspecified glauco ma type Problem 11/20/2020 12:00:00 AM EST eCW1 ([facility]) E66.01 [id number] Morbid (severe) obesity due to excess c alories Problem 10/02/2020 12:00:00 AM EST eCW1 ([facility]) E78.2 [id number] Mixed hyperlipidemia Problem 08/21/2020 12:0 0:00 AM EST eCW1 ([facility]) Surgeries/Procedures Procedure Description Date Indications Data Source(s) ARTHROCENTESIS ASPIR&/INJECTION MAJOR JT/BURSA 021 12:00:00 AM EDT MEDENT ([facility]) MRI BRAIN BRAIN STEM W/O CONTRAST MATERIAL 04/05/2021 12:00:00 AM EDT MEDENT ([facility]) MRI BRAIN BRAIN STEM W/O CONTRAST MATERIAL 04/05/2021 12:00:00 AM EDT MONTSE ([facility] ) TROPONIN QUANTITATIVE <td>TROPONIN I</td><td>Routine</td><td>03/21/2021</td><td></td><td> </td> 03/21/2021 12:00:00 AM EDT [facility] PROTHROMBIN TIME <td>PROTIME- INR</td><td>Routine</td><td>03/20/2021</td><td></td><td> </td> 03/20/2021 12:00:00 AM T [facility] BLOOD COUNT COMPLETE AUTO&AUTO DIFRNTL WBC COUNT <td>C BC AND DIFFERENTIAL</td><td>Routine</td><td>03/20/2021</td><td></td><td> </td> 03/20/2021 12:00:00 AM EDT [facility] PROTHROMBIN TIME <td>POCT INR</td><td>Routine</td><td>03/20/2021</td><td></td><td> </td> 03/20/2021 12:00:00 AM EDT [facility] HEPATIC FUNCTION PANEL <td>HEPATIC FUNCTION PANEL</td><td>Routine</td><td>03/20/2021</td><td></td><td> </td> 03/20/2021 12:00:00 AM EDT [facility] BASIC METABOLIC PANEL CALCIUM TOTAL <td>BASIC METABOLI C PANEL</td><td>Routine</td><td>03/20/2021</td><td></td><td> </td> 03/20/2021 12:00:00 AM EDT [facility] POCT AMB EKG <td>POCT AMB EKG</td><td>Rou julia</td><td>03/12/2021 12:37 PM EDT</td><td> Chest discomfort</td><td> </td> 03/12/2021 12:37:00 PM EDT Chest discomfort [facility] Chest discomfort OFFICE OUTPATIENT VISIT 15 MINUTES 02/14/2021 12:00:00 AM EDT MEDENT ([facility]) UPPER NDSC BIOPSY SINGLE/MULTIPLE 01/28/2021 12:00:00 AM EDT MEDENT ([facility]) POCT AMB EKG <td>POCT AMB EKG</td><td>Rou julia</td><td>01/24/2021 3:46 PM EDT</td><td> Cardiomegaly</td><td> </td> 01/24/2021 03:46:00 PM EDT Cardiomegaly [facility] Cardiomegaly ARTHROCENTESIS ASPIR&/INJECTION MAJOR JT/BURSA 021 12:00:00 AM EDT MEDENT ([facility]) Diabetic Foot Exam 12/04/2020 12:00:00 AM EST MEDENT ([facility]) BLOOD COUNT COMPLETE AUTO&AUTO DIFRNTL WBC COUNT <td>C BC AND DIFFERENTIAL</td><td>Routine</td><td>11/24/2020</td><td></td><td> </td> 11/24/2020 12:00:00 AM EST [facility] THYROID STIMULATING HORMONE TSH <td>TSH</td><td>Routine</td><td>11/24/2020</td><td></td><td> </td> 11/24/2020 12:00:00 AM [facility] BASIC METABOLIC PANEL CALCIUM TOTAL <td>BASIC METABOLI C PANEL</td><td>Routine</td><td>11/24/2020</td><td></td><td> </td> 11/24/2020 12:00:00 AM [facility] HEMOGLOBIN GLYCOSYLATED A1C <td>HEMOGLOBIN A1C</td><td>Routine</td><td>11/20/2020</td><td></td><td> </td> 11/20/2020 12:00:00 AM [facility] LIPID PANEL <td>LIPID PANEL</td><td>Rout ine</td><td>11/20/2020</td><td></td><td> </td> 11/20/2020 12:00:00 AM [facility] ARTHROCENTESIS ASPIR&/INJECTION MAJOR JT/BURSA 020 12:00:00 AM EST MEDENT ([facility] RADIOLOGIC EXAM KNEE COMPLETE 4/MORE VIEWS 08/17/2020 12:00:00 AM EST MEDENT ([facility] RADIOLOGIC EXAM KNEE COMPLETE 4/MORE VIEWS 08/17/2020 12:00:00 AM EST MEDENT ([facility] ) RADIOLOGIC EXAM KNEE COMPLETE 4/MORE VIEWS 08/17/2020 12:00:00 AM EST MEDENT ([facility] RADIOLOGIC EXAM KNEE COMPLETE 4/MORE VIEWS 08/17/2020 12:00:00 AM EST MEDENT ([facility] ) TSTG ANS FUNCJ CARDIOVAGAL INNERVAJ PARASYMP 0 12:00:00 AM EDT MEDENT ([facility]) TSTG ANS FUNCJ CARDIOVAGAL INNERVAJ PARASYMP 0 12:00:00 AM EDT MEDENT ([facility] ) TESTING AUTONOMIC NERVOUS SYSTEM FUNCTION 07/20/2020 1 2:00:00 AM EDT MEDENT ([facility]) TESTING AUTONOMIC NERVOUS SYSTEM FUNCTION 07/20/2020 1 2:00:00 AM EDT MEDENT ([facility]) PNEUMOCOCCAL CONJ VACCINE 13 VALENT IM 06/27/2020 12:0 0:00 AM EDT eCW1 ([facility]) Immunization: Flublok Quadrivalent (18 years & older) 0.5mL IM (Influenza) 06/27/2020 12:00:00 AM EDT eCW1 ([facility]) RADEX SPINE LUMBOSACRAL 2/3 VIEWS 06/08/2020 12:00:00 AM EDT MEDENT ([facility]) Results ID Date Data Source [id number] 03/28/2021 08:24:46 AM EDT [facility] Name Value Range Interpretation Code Description Data Allegra rce(s) Supporting Document(s) [facility] [id number] jb2 [file] [id number] ID Date Data Source [id number] 03/28/2021 07:53:15 AM EDT [facility] Name Value Range Interpretation Code Description Data Allegra rce(s) Supporting Document(s) POC NOVA GLU 252 mg/dL (70-99) H [facility] Lizeth DUNN PERFORMED BY [facility] CLINICAL STAFF ID Date Data Source [id number] 03/13/2021 07:25:00 AM EDT [facility] FASTING: UNKNOWNReceived: 03/13/2021 at 06:28:00 QPT: [facility], [address], [address] [place] [address], [phone], Nito Smallwood MD Received: 03/13/2021 at 06:28:00 QPT : [facility], [address], [address] [place] [address], [phone], Nito Smallwood MD Name Value Range Interpretation [...] is approximately 13% higher for peopleidentified as -Gambian. eGFR NON-AFR. BENINESE 44 mL/min/1.73m2 > OR = 60 Below [...] normal [facility] ID Date Data Source [id number] 03/13/2021 07:25:00 AM EDT [facility] FASTING: UNKNOWNReceived: 03/13/2021 at 06:28:00 QPT: [facility], [address], [address] [place] [address], [phone], Nito Smallwood MD Received: 03/13/2021 at 06:28:00 QPT : [facility], [address], [address] [place], [phone], Nito Smallwood MD Name Value Range Interpretation [...] copy faxed has been acknowledged. Queued to: [id number] ID Date Data Source [id number] 03/07/2021 09:19:00 AM EDT MEDENT ([facility]) Name Value Range Interpretation Code Description Data Allegra rce(s) Supporting Document(s) Hemoglobin A1c/Hemoglobin.total in Blood 8.8 MEDENT ([facility]) Glucose [Mass/volume] in Serum or Plasma 233 MEDENT ([facility]) ID Date Data Source [id number] 02/04/2021 05:30:48 PM EDT [address] [id number]# Surgical Pathology ReportPatient Name: ORLANDO PERALESB: 5Accession #:[id number]) ReceivedA: Antrum bxB: Gastric body bxClinical Diagnosis [...] 02/04/2021Electronically Signed Out By Christiano Em MD [facility] [place] [address] [id number] component performed at [facility], [address] [place] [address], [phone].Reported at [facility], [address] [place] [address], [phone]. This report may includeimmunohistochemical or in-situ hybridization results. Testing wasdeveloped and the performance characteristics determined by [employer] as required by CLIA '88. The FDA hasdetermined that approval for specific use is not necessary for clinicaluse. The quality of Hematoxylin and Eosin stains and as applicable, forall immunohistochemical and/or special stains, including positive andnegative controls, were reviewed and considered appropriate.ICD codes K21.9CPT codesA: 76877W, 14066bN: 82723R Name Value Range Interpretation Code Description Data Allegra rce(s) Supporting Document(s) ID Date Data Source [id number] 01/28/2021 11:13:59 AM EDT [facility] NT INFORMATIONPatient MRN Name Date of Age Gend*PT [id number] Cecily Perales 1955 65 years F OPPT Location Admission Date/Time Visit ID [facility] [place] 01/28/21 1021 --- Bairon Melgar MD([id number]) EPI ID [facility] Admitting Provider [id number] Bairon Melgar MD([id number])Endoscopic Gastroduodenoscopy Procedure NotePatient: Cecily CamaranerSurgery Date: January [...] rce(s) Supporting Document(s) ID Date Data Source [id number] 01/28/2021 10:45:52 AM EDT [facility] INFORMATIONPatient MRN Name Date of Age Gend*PT [id number] Cecily Perales 1955 65 years F OPPT Location Admission Date/Time Visit [facility] 1021 --- Bairon Melgar MD([id number]) EPI ID [facility] Admitting Provider [id number] Bairon Melgar MD([id number])Pre-Procedure History and Physical:Past Medical History:Diagnosis Date CRI [...] patient wasexamined.There are no changes to the H&P.aBiron Melgar MD01/28/21 10:45 AM Name Value Range Interpretation Code Description Data Allegra rce(s) Supporting Document(s) ID Date Data Source [id number] 01/28/2021 10:43:38 AM EDT [facility] Name Value Range Interpretation Code Description Data Allegra rce(s) Supporting Document(s) POC NOVA GLU 133 mg/dL (70-99) H [facility] Bret DUNN PERFORMED BY [facility] ID Date Data Source [id number] 01/23/2021 08:35:00 AM EDT [facility] Name Value Range Interpretation Code Description Data Allegra rce(s) Supporting Document(s) SARS coronavirus 2 RNA Not Detected [facility] [place] This lab was ordered by [facility] and reported by [facility]. ID Date Data Source [id number] 01/24/2021 02:10:17 PM EDT Lab [facility] Name Value Range Interpretation Code Description Data Allegra rce(s) Supporting Document(s) SARS-COV-2 [facility] Not DetectedReference range: Not Detecte d This nucleic acid amplification test was developed and its performance characteristics determined by [employer]. Nucleic acid amplification tests include RT-PCR and [...] detected) result in this assay. Performed At: [facility] [address] [employer] [address] [employer] [place], [place] [id number] Miesha Hester PhD Ph:[phone] ID Date Data Source [id number] 10/23/2020 02:00:00 PM EST [facility] Name Value Range Interpretation Code Description Data Allegra rce(s) Supporting Document(s) SARS coronavirus 2 RNA Not Detected [facility] [place] This lab was ordered by [facility] and reported by [facility]. ID Date Data Source [id number] 07/31/2020 08:06:00 AM EST MEDENT ([facility], ) Name Value Range Interpretation Code Description Data Allegra rce(s) Supporting Document(s) Surgical pathology study Laboratory test result [facility] ([facility], ) FINAL DIAGNOSIS A-Descending colon polyp, polypectomy: [...] MD 08/01/2020 1353 ID Date Data Source [id number] 07/31/2020 07:09:[address] [facility] ([facility] Name Value Range Interpretation Code Description Data Allegra rce(s) Supporting Document(s) Glucose [Mass/volume] in Capillary blood by Glucometer 220 mg/dL 80-115 Above high normal [facility] ([facility]) ID Date Data Source [id number] 07/26/2020 10:25:00 AM EDT [facility] Name Value Range Interpretation Code Description Data Allegra rce(s) Supporting Document(s) SARS coronavirus 2 RNA [facility] This lab was ordered by [facility] and reported by [facility]. ID Date Data Source [id number] 06/28/2020 10:00:[address] [facility] ([facility]) Name Value Range Interpretation Code Description Data Allegra rce(s) Supporting Document(s) Elastase.pancreatic [Mass/mass] in Stool Laboratory test result Normal (applies to non-numeric results) [facility] ([facility]) <content>Result Units: ug Elast./g</cont ent>
<content>Severe Pancreatic Insufficiency: <100</content>
<content>Moderate Pancreatic Insufficiency: 100 - 200</content>
<content>Normal: >200</content>
<content>Performed at: [facility]</content>
<content>[address] [place] [id number]</content>
<content>Contract Consultant: Dat Flores MD, Phone: [phone]</content>
<content></content> ID Date Data Source [id number] 06/27/2020 02:17:00 PM EDT MEDENT ([facility], ) Name Value Range Interpretation Code Description Data Allegra rce(s) Supporting Document(s) Tissue transglutaminase IgA Ab [Units/volume] in Serum 3 U/mL 0-3 Normal (applies to non-numeric results) [facility] ([facility]) Negative 0 - 3 Weak Positive 4 - 10 Positive >10 . Tissue Transglutaminase (tTG) has been identified as the endomysial antigen. Studies have demonstr- ated that endomysial IgA antibodies have over 99% specificity for gluten sensitive enteropathy. Performed at: [facility] [id number] Contract Consultant: Keiry Munguia MD, Phone: [phone] ID Date Data Source [id number] 06/05/2020 04:15:00 PM EDT MEDENT ([facility]) Name Value Range Interpretation Code Description Data Allegra rce(s) Supporting Document(s) Glucose [Mass/volume] in Serum or Plasma 256 MEDENT ([facility]) Hemoglobin A1c/Hemoglobin.total in Blood 9.5 [facility] ([facility]) Procedure Social History Code Duration Value Status Description Data Source(s ) Smoking 04/30/2021 12:00:00 AM EDT Never Smoker completed Never S moker eCW1 ([facility]) Alcohol intake 04/09/2021 12:00:00 AM EDT Lifetime non-drinker (finding) completed Lifetime non-drinker (finding) [facility] Smoking 04/02/2021 12:00:00 AM EDT Never Smoker completed Never S moker eCW1 ([facility]) Smoking 04/02/2021 12:00:00 AM EDT Never Smoker completed Never S moker eCW1 ([facility]) Smoking 04/02/2021 12:00:00 AM EDT Never Smoker completed Never S moker eCW1 ([facility]) Smoking 04/02/2021 12:00:00 AM EDT Never Smoker completed Never S moker eCW1 ([facility]) Smoking 03/19/2021 12:00:00 AM EDT Never Smoker completed Never S moker eCW1 ([facility]) Alcohol intake 03/12/2021 12:00:00 AM EDT Lifetime non-drinker (finding) completed Lifetime non-drinker (finding) [facility] Tobacco use and exposure 01/24/2021 12:00:00 AM EDT Never used co mpleted Never used [facility] Smoking 01/24/2021 12:00:00 AM EDT Never smoker completed Never s moker [facility] Alcohol intake 01/24/2021 12:00:00 AM EDT Lifetime non-drinker (finding) completed Lifetime non-drinker (finding) [facility] Smoking 12/04/2020 12:00:00 AM EST Patient has never smoked co mpleted Patient has never smoked MEDENT ([facility]) Smoking 11/20/2020 12:00:00 AM EST Never Smoker completed Never S moker eCW1 ([facility]) Smoking 11/20/2020 12:00:00 AM EST Never Smoker completed Never S moker eCW1 ([facility]) Smoking 08/21/2020 12:00:00 AM EST Never Smoker completed Never S moker eCW1 ([facility]) Smoking 08/21/2020 12:00:00 AM EST Never Smoker completed Never S moker eCW1 ([facility]) Smoking 08/21/2020 12:00:00 AM EST Never Smoker completed Never S moker eCW1 ([facility]) Smoking 08/21/2020 12:00:00 AM EST Never Smoker completed Never S moker eCW1 ([facility]) Smoking 08/21/2020 12:00:00 AM EST Never Smoker completed Never S moker eCW1 ([facility]) Smoking 08/21/2020 12:00:00 AM EST Never Smoker completed Never S moker eCW1 ([facility]) Smoking 08/21/2020 12:00:00 AM EST Never Smoker completed Never S moker eCW1 ([facility]) Smoking 08/21/2020 12:00:00 AM EST Never Smoker completed Never S moker eCW1 ([facility]) Smoking 08/21/2020 12:00:00 AM EST Never Smoker completed Never S moker eCW1 ([facility]) Smoking 08/21/2020 12:00:00 AM EST Never Smoker completed Never S moker eCW1 ([facility]) Smoking 07/31/2020 12:00:00 AM EST Never Smoker completed Never S moker eCW1 ([facility]) Smoking 07/18/2020 12:00:00 AM EDT Never Smoker completed Never S moker eCW1 ([facility]) Smoking 07/18/2020 12:00:00 AM EDT Never Smoker completed Never S moker eCW1 ([facility]) Smoking 07/18/2020 12:00:00 AM EDT Never Smoker completed Never S moker eCW1 ([facility]) Smoking 06/27/2020 12:00:00 AM EDT Never Smoker completed Never S moker eCW1 ([facility]) Vital Signs ID Date Data Source UNK Name Value Range Interpretation Code Description Data Source(s) Body weight 333.4 [lb_av] 333.4 [lb_av] eCW1 ([facility]) Heart rate 100 /min 100 /min eCW1 ([facility]) Body height 65 [in_i] 65 [in_i] eCW1 ([facility]) Body mass index (BMI) [Ratio] 55.47 kg/m2 55.47 kg/m2 eCW1 ([facility]) Respiratory rate 18 /min 18 /min eCW1 ([facility]) Body temperature 95.6 [degF] 95.6 [degF] eCW1 ( [facility]) Systolic blood pressure 140 mm[Hg] 140 mm[Hg] e CW1 ([facility]) Diastolic blood pressure 80 mm[Hg] 80 mm[Hg] eCW1 ([facility]) Systolic blood pressure 138 mm[Hg] 138 mm[Hg] [facility] Diastolic blood pressure 82 mm[Hg] 82 mm[Hg] [facility] Heart rate 84 /min 84 /min [facility] Body height 165.1 cm 165.1 cm [facility] Body weight 151.501 kg 151.501 kg [facility] Body mass index (BMI) [Ratio] 55.58 kg/m2 55.58 kg/m2 [facility] Oxygen saturation in Arterial blood by Pulse oximetry 92 % 92 % [facility] Body weight 334 [lb_av] 334 [lb_av] eCW1 ([facility]) Body height 65 [in_i] 65 [in_i] eCW1 ([facility]) Body mass index (BMI) [Ratio] 55.57 kg/m2 55.57 kg/m2 eCW1 ([facility]) Heart rate 92 /min 92 /min eCW1 ([facility]) Respiratory rate 18 /min 18 /min eCW1 ([facility]) Body temperature 97.2 [degF] 97.2 [degF] eCW1 ( [facility]) Systolic blood pressure 126 mm[Hg] 126 mm[Hg] e CW1 ([facility]) Diastolic blood pressure 80 mm[Hg] 80 mm[Hg] eCW1 ([facility]) Body weight 333 [lb_av] 333 [lb_av] eCW1 ([facility]placed [facility]) Body height 65 [in_i] 65 [in_i] eCW1 ([facility]) Body mass index (BMI) [Ratio] 55.41 kg/m2 55.41 kg/m2 W1 ([facility]) Heart rate 96 /min 96 /min eCW1 ([facility]) Respiratory rate 18 /min 18 /min eCW1 ([facility]) Body temperature 96.9 [degF] 96.9 [degF] eCW1 ( [facility]) Systolic blood pressure 138 mm[Hg] 138 mm[Hg] e CW1 ([facility]) Diastolic blood pressure 84 mm[Hg] 84 mm[Hg] eCW1 ([facility]) Systolic blood pressure 126 mm[Hg] 126 mm[Hg] [facility] Diastolic blood pressure 90 mm[Hg] 90 mm[Hg] [facility] Heart rate 85 /min 85 /min [facility] Body height 165.1 cm 165.1 cm [facility] Body weight 152.409 kg 152.409 kg [facility] Body mass index (BMI) [Ratio] 55.91 kg/m2 55.91 kg/m2 [facility] Oxygen saturation in Arterial blood by Pulse oximetry 93 % 93 % [facility] Heart rate 90 /min 90 /min MEDENT ([facility] Body temperature 95.9 [degF] 95.9 [degF] MEDENT ([facility] Body height 66.4 [in_i] 66.4 [in_i] MEDENT ([facility] 5'6.40" Body weight 333.12 [lb_av] 333.12 [lb_av] MEDEN T ([facility] Body mass index (BMI) [Ratio] 53.1 kg/m2 53.1 k g/m2 MEDENT ([facility] ) Oxygen saturation in Arterial blood by Pulse oximetry 95 % 95 % MEDENT ([facility] ) Systolic blood pressure 142 mm[Hg] 142 mm[Hg] M EDENT ([facility] ) Diastolic blood pressure 86 mm[Hg] 86 mm[Hg] MEDENT ([facility] ) Respiratory rate 12 /min 12 /min MEDENT ( [facility] ) Body height 66 [in_i] 66 [in_i] MEDENT ([facility] ) 5'6" Body weight 325.00 [lb_av] 325.00 [lb_av] MEDEN T ([facility] ) Body mass index (BMI) [Ratio] 52.5 kg/m2 52.5 k g/m2 MEDENT ([facility] ) Gordon body weight 130 [lb_av] 130 [lb_av] MEDEN T ([facility] ) Systolic blood pressure 142 mm[Hg] 142 mm[Hg] [facility] Diastolic blood pressure 88 mm[Hg] 88 mm[Hg] [facility] Heart rate 78 /min 78 /min [facility] Body height 167.6 cm 167.6 cm [facility] Body weight 154.677 kg 154.677 kg [facility] Body mass index (BMI) [Ratio] 55.04 kg/m2 55.04 kg/m2 [facility] Oxygen saturation in Arterial blood by Pulse oximetry 95 % 95 % [facility] Heart rate 80 /min 80 /min [facility]ENT ([facility] ) Body temperature 957.0 [degF] 957.0 [degF] MEDE NT ([facility] ) Body height 66.4 [in_i] 66.4 [in_i] MEDENT ([facility] ) 5'6.40" Body weight 339.00 [lb_av] 339.00 [lb_av] MEDEN T ([facility] ) Body mass index (BMI) [Ratio] 54.1 kg/m2 54.1 k g/m2 MEDENT ([facility] ) Oxygen saturation in Arterial blood by Pulse oximetry 98 % 98 % [facility] ([facility] ) Systolic blood pressure 136 mm[Hg] 136 mm[Hg] M EDENT ([facility] ) Diastolic blood pressure 84 mm[Hg] 84 mm[Hg] MEDENT ([facility] Body mass index (BMI) [Ratio] 52.5 kg/m2 52.5 k g/m2 MEDENT ([facility] Gordon body weight 130 [lb_av] 130 [lb_av] MEDEN T ([facility] ) Respiratory rate 12 /min 12 /min MEDENT ( [facility] ) Body height 66 [in_i] 66 [in_i] MEDENT ([facility] ) 5'6" Body weight 325.00 [lb_av] 325.00 [lb_av] MEDEN T ([facility] ) Body weight 340 [lb_av] 340 [lb_av] eCW1 (Replaced by [facility]) Body height 65 [in_i] 65 [in_i] eCW1 ([facility]) Body mass index (BMI) [Ratio] 56.57 kg/m2 56.57 kg/m2 eCW1 ([facility]) Heart rate 111 /min 111 /min eCW1 ([facility]) Respiratory rate 20 /min 20 /min eCW1 ([facility]) Body temperature 96.5 [degF] 96.5 [degF] eCW1 ( [facility]) Systolic blood pressure 130 mm[Hg] 130 mm[Hg] e CW1 ([facility]) Diastolic blood pressure 80 mm[Hg] 80 mm[Hg] eCW1 ([facility]) Body weight 340 [lb_av] 340 [lb_av] eCW1 ([facility]placed by [facility]) Body height 65 [in_i] 65 [in_i] eCW1 ([facility]) Body mass index (BMI) [Ratio] 56.57 kg/m2 56.57 kg/m2 eCW1 ([facility]) Heart rate 116 /min 116 /min eCW1 ([facility]) Respiratory rate 18 /min 18 /min eCW1 ([facility]) Body temperature 96.4 [degF] 96.4 [degF] eCW1 ( [facility]) Systolic blood pressure 128 mm[Hg] 128 mm[Hg] e CW1 ([facility]) Diastolic blood pressure 80 mm[Hg] 80 mm[Hg] eCW1 ([facility]) Body height 65 [in_i] 65 [in_i] eCW1 ([facility]) Body weight 345 [lb_av] 345 [lb_av] eCW1 (Replaced by [facility]) Diastolic blood pressure 90 mm[Hg] 90 mm[Hg] eCW1 ([facility]) Body temperature 97.7 [degF] 97.7 [degF] eCW1 ( [facility]) Systolic blood pressure 152 mm[Hg] 152 mm[Hg] e CW1 ([facility]) Body mass index (BMI) [Ratio] 57.40 kg/m2 57.40 kg/m2 eCW1 ([facility]) Heart rate 118 /min 118 /min eCW1 ([facility]) Respiratory rate 18 /min 18 /min eCW1 ([facility]) Body mass index (BMI) [Ratio] 54.1 kg/m2 54.1 k g/m2 MEDENT ([facility]) Heart rate 71 /min 71 /min MEDENT ([facility]) Diastolic blood pressure 84 mm[Hg] 84 mm[Hg] MEDENT ([facility]) Body height 66.4 [in_i] 66.4 [in_i] MEDENT ([facility]) 5'6.40" Body weight 339.25 [lb_av] 339.25 [lb_av] MEDEN T ([facility]) Oxygen saturation in Arterial blood by Pulse oximetry 96 % 96 % MEDENT ([facility]) Systolic blood pressure 126 mm[Hg] 126 mm[Hg] M EDENT ([facility]) Patient Treatment Plan of Care Planned Activity Planned Date Details Description Data Source (s) Flonase Allergy Relief 50 MCG/ACT 04/02/2021 12:00:00 AM EDT eCW1 ([facility]) Flonase Allergy Relief 50 MCG/ACT 04/02/2021 12:00:00 AM EDT eCW1 ([facility]) fluticasone (FLONASE) 50 MCG/ACT nasal spray 04/02/2021 12:00:00 AM EDT [facility] Flonase Allergy Relief 50 MCG/ACT 04/02/2021 12:00:00 AM EDT eCW1 ([facility]) Flonase Allergy Relief 50 MCG/ACT 04/02/2021 12:00:00 AM EDT eCW1 ([facility]) Amitriptyline Hydrochloride 10 MG Oral Tablet 03/19/2021 12:00:00 A M EDT eCW1 ([facility]) clopidogrel 75 MG Oral Tablet 03/12/2021 12:00:00 AM EDT [facility] Cholecalciferol 1000 UNT Oral Tablet 01/15/2021 12:00:00 AM EDT [facility] latanoprost 0.05 MG/ML Ophthalmic Solution 01/10/2021 12:00:00 AM E DT [facility] carvedilol 25 MG Oral Tablet 01/04/2021 12:00:00 AM EDT [facility] Magnesium Oxide 400 MG Oral Tablet 01/03/2021 12:00:00 AM EDT [facility] 3 ML Insulin Lispro 100 UNT/ML Pen Injector [Humalog] 01/02/2021 12:00:00 AM EDT [facility] cinacalcet 30 MG Oral Tablet 01/02/2021 12:00:00 AM EDT [facility] glimepiride 4 MG Oral Tablet 12/03/2020 12:00:00 AM EST [facility] Simvastatin 80 MG Oral Tablet 12/01/2020 12:00:00 AM EST [facility] gabapentin 600 MG Oral Tablet 11/20/2020 12:00:00 AM EST [facility] 3 ML liraglutide 6 MG/ML Pen Injector [Victoza] 11/17/2020 12:00:00 AM EST [facility] Ergocalciferol 44252 UNT Oral Capsule 11/10/2020 12:00:00 AM EST [facility] Zofran ODT 4 MG 07/18/2020 12:00:00 AM EDT eCW1 ([facility]) Zofran ODT 4 MG 07/18/2020 12:00:00 AM EDT eCW1 ([facility]) Zofran ODT 4 MG 07/18/2020 12:00:00 AM EDT eCW1 ([facility]) Oxymetazoline HCl (NASAL SPRAY LONG ACTING NA) [facility] 60 ACTUAT exenatide 0.01 MG/ACTUAT Pen Injector [Byetta] [facility]
[2021-07-23 11:20] VITALS: BP 146/85
[2021-07-23] MEDS: CARVedilol 12.5 MG TAB PO SCH ×2 (11:51→20:44)
[2021-07-23] MEDS: MAGNESIUM OXIDE 400MG TAB (MAG-OX) PO SCH ×2 (11:51→20:43)
[2021-07-23] MEDS: GABAPENTIN 300 MG CAP PO SCH ×3 (11:52→20:44)
[2021-07-23] MEDS: OMEPRAZOLE 20 MG CAP PO SCH (11:52)
[2021-07-23] MEDS: LEVEMIR (INSULIN DETEMIR) 1 UNITS/0.01ML SC SCH ×2 (11:52→20:43)
[2021-07-23] MEDS: HumaLOG INSULIN (NovoLOG) PER UNIT SC SCH ×3 (11:53→21:00)
[2021-07-23] MEDS: CINACALCET 30 MG TAB (SENSIPAR) PO SCH (12:56)
--- NOTE | 2021-07-23 13:39 | HPEPDOC ---
[facility] Medical History & Physical Date of Admission Jul 23, 2021 Date of Service: Jul 23, 2021 Primary Care Physician: BRYON TOMPKINS MD Attending Physician: ROBBIE VELASQUEZ DO History and Physical CHIEF COMPLAINT: Bilateral knee pain and inability to walk HISTORY OF PRESENT ILLNESS: Patient is a 66-year-old female who states she went to her orthopedic surgeon's office yesterday and received bilateral steroid knee injections around 1 in the afternoon. Patient states that she felt good for the first few hours however, began to have increased pain to the point where she was unable to walk later on the afternoon. Patient describes the pain as an ache in both knees and has difficulty moving her knees back and forth. Patient was also having difficulty bearing weight so she presented to the emergency department. In the emergency department, imaging studies did not reveal any acute trauma. Patient denies having any acute trauma to the knees. Patient was unable to walk and because she lives at home, the decision was made to admit the patient. Patient will be admitted for further observation. PAST MEDICAL HISTORY: 1. Insulin-dependent diabetes mellitus. 2. Diabetic neuropathy. 3. CKD stage IIIb. 4. Congenitally absent right kidney 5. Hypertension 6. Hyperlipidemia 7. GERD 8. Osteoarthritis 9. History of DVT 10. History of pulmonary embolus, not at the same time as DVT 11. RLS 12. GERD 13. Depression 14. Vitamin D deficiency 15. FREDDY compliant with CPAP 16. Glaucoma PAST SURGICAL HISTORY: 1. Back surgery 1970. 2. Cholecystectomy. 3. Varicose veins. 4. Colonoscopy 5. LEEP 6. Right breast biopsy 7. Left open carpal tunnel release SOCIAL HISTORY: Patient denies smoking cigarettes, drinking alcohol or using illicit drugs FAMILY HISTORY: According to chart review, patient is unaware of any medical history in both her mother and her father. Patient's brother of an AR at 65 ALLERGIES: Please see below. REVIEW OF SYSTEMS: General: Patient denies fevers HEENT: Patient denies headaches Cardiovascular: Patient denies chest pain Respiratory: Patient denies shortness of breath, cough GI: Patient denies abdominal pain, nausea, vomiting, diarrhea : Patient denies increased frequency or pain with urination Extremities: Patient reports pain in her knees as above Neurological: Patient denies numbness or tingling in legs Skin: Patient denies any new rashes or lesions. Hematologic: Patient denies any easy bruising. Lymphatic: Patient denies any lumps lumps or bumps in neck, axilla, or groin HOME MEDICATIONS: Please see below. PHYSICAL EXAMINATION: VITAL SIGNS: Temperature 97.6, pulse 95, respiratory rate 16, blood pressure 150/88, pulse oximetry 96% on room air. General: Alert and oriented female patient who was laying on the stretcher when I walked in. Patient not appear to be in any acute distress. HEENT: Normocephalic, atraumatic, moist mucous membranes. Neck: No lymphadenopathy or thyromegaly Cardiac: Regular rate and rhythm, no murmurs, normal S1, normal S2 Pulm: Clear to auscultation bilaterally. No wheezes, rhonchi, rales Abd: Nondistended, nontender to palpation, normal bowel sounds Ext: No edema bilateral lower extremities. No swelling or erythema overlying the patient's knees bilaterally. Patient does have some tenderness along the joint line of her bilateral knees. Patient does have difficulty bending and extending her knees bilaterally secondary to pain. When pressed, patient does have full active and passive range of motion. Neuro: Patient was able to move all 4 extremities on command and reported equal sensation light touch in all 4 extremities. Skin: Skin of the head, neck, upper and lower extremities was examined did not show any evidence of rash or wounds. LABORATORY DATA: See below. IMAGING: Bilateral knee x-ray performed on was reported to show moderate degenerative osteoarthritis of the right knee, no acute fracture. Moderate degenerative osteoarthritis, greatest in the medial compartment of the left knee, otherwise negative left knee. MICROBIOLOGY: Please see below. ASSESSMENT: 66-year-old female who presented to the hospital with pain in her bilateral knees after steroid injection in her knees and having difficulty ambulating.. . PLAN: 1. Bilateral knee pain with difficulty ambulating. Patient will be admitted for observation and will work with physical therapy. The knee pain may be secondary to a steroid flare after her injections which should go away on its own. Patient's x-rays did not show any acute fracture and patient denies any trauma. Patient will continue to work with physical therapy and continue to receive pain medication for this. Any recommendations from physical therapy are appreciated. Patient will also be given ice packs. 2. Type 2 diabetes. We will continue with sliding scale insulin as well as her basal insulin. Patient will be on a consistent carb diet with hypoglycemic protocol. Patient's blood sugar was elevated to greater than 200 this morning. Patient will receive 75 units of Levemir. 3. Hypertension. We will continue the patient's home medications with hold parameters. We will monitor the patient's blood pressure carefully. 4. CKD stage IIIb. Will avoid NSAID and other nephrotoxic medications in the treatment of the patient's pain. We will monitor the patient's creatinine close ly. 5. GERD. Continue home medications. 6. Hypomagnesemia. We will continue the patient's oral magnesium and recheck in the morning. 7. DVT prophylaxis: Heparin 8. CODE STATUS: Full code Disposition: Patient be admitted to the medical surgical floor under observation. Patient will work with physical therapy. Discharge prior to 2 midnights. Vital Signs Vital Signs Date Time Temp Pulse Resp B/P (MAP) Pulse Ox O2 Delivery O2 Flow Rate FiO2 07/23/21 11:51 94 150/88 07/23/21 11:20 97.6 16 96 Room Air Laboratory Data Labs 24H Laboratory Tests 2 07/23/21 07:30: Immature Granulocyte % (Auto) 0.4, Neutrophils (%) (Auto) 75.8H, Lymphocytes (%) (Auto) 14.3L, Monocytes (%) (Auto) 8.1H, Eosinophils (%) (Auto) 1.0, Basophils (%) (Auto) 0.4, Neutrophils # (Auto) 10.2H, Lymphocytes # (Auto) 1.9, Monocytes # (Auto) 1.1H, Eosinophils # (Auto) 0.1, Basophils # (Auto) 0.1, Nucleated Red Blood Cells % (auto) 0.0, Anion Gap 6L, Glomerular Filtration Rate 35.1L, Calcium Level 8.8, Magnesium Level 1.1L 07/23/21 07:38: Coronavirus (COVID-19)(PCR) NEGATIVE, Influenza Type A (RT-PCR) NEGATIVE, Influenza Type B (RT-PCR) NEGATIVE, Respiratory Syncytial Virus (PCR) NEGATIVE 07/23/21 11:35: Bedside Glucose (Misc Panel) 226H CBC/BMP Laboratory Tests 07/23/21 07:30 Home Medications Scheduled Carvedilol (Carvedilol) 25 Mg Tablet, 25 MG PO BID Cinacalcet (Sensipar) 30 Mg Tablet, 30 MG PO 5XW MON//THU//THU Divalproex Sodium (Divalproex Sodium) 250 Mg Tablet.dr, 250 MG PO QHS Fluticasone Propionate (Flonase Allergy Relief) 9.9 Ml [place].susp, 1 SPRAY NARES BID Gabapentin (Gabapentin) 600 Mg Tablet, 600 MG PO TID Glimepiride (Glimepiride) 4 Mg Tablet, 4 MG PO BID Insulin Degludec (Tresiba Flextouch U-200) 200 Unit/1 Ml Insuln.pen, 150 UNIT SC QHS Insulin Human Lispro (Novolog) 100 U/Ml Inj, 1 DOSE SC AC PER SLIDING SCALE Latanoprost (Xalatan) 0.005% 2.5ML Drops, 1 DROP OU QHS Liraglutide (Victoza 2-Ludwin) 18 Mg/3 Ml Inj, 1.8 MG SC QHS Magnesium Oxide (Magox 400) 400 Mg Tablet, 800 MG PO BID Omeprazole (Omeprazole) 20 Mg Capsule.dr, 20 MG PO DAILY Ropinirole HCl (Ropinirole HCl) 1 Mg Tab, 1 MG PO QHS Simvastatin (Zocor) 80 Mg Tab, 80 MG PO QHS allopurinoL (allopurinoL) 300 Mg Tablet, 300 MG PO QHS Allergies Coded Allergies: No Known Allergies (Unverified , 07/24/20) A-FIB/CHADSVASC A-FIB History Current/History of A-Fib/PAF?: No ROBBIE VELASQUEZ DO Jul 23, 2021 13:39
[2021-07-23 14:00] VITALS: BP 153/92
[2021-07-23] MEDS: LATANOPROST 0.005% OPHTH SOLN 2.5 ML OU SCH (20:40)
[2021-07-23] MEDS: FLUTICASONE PROP 0.05% NASAL SPRAY 16 GM (FLONASE) NARES SCH (20:40)
[2021-07-23] MEDS: HEPARIN SOD (PORCINE) 5000UNITS/ML 1ML VIAL/SYRINGE SQ SCH (20:41)
[2021-07-23] MEDS: DIVALPROEX 250 MG TAB PO SCH (20:45)
[2021-07-23] MEDS: SIMVASTATIN 40 MG TAB PO SCH (20:45)
[2021-07-23] MEDS: rOPINIRole 1MG TAB PO SCH (20:45)
[2021-07-23] MEDS: allopurinoL 300 MG TAB PO SCH (20:45)
[2021-07-23 23:00] VITALS: BP 149/85
[2021-07-24] MEDS: PERCOCET 5MG/325MG TAB PO PRN ×2 (03:04→12:11)
[2021-07-24 06:51] VITALS: BP 125/64
[2021-07-24 07:33] LABS: HEMATOCRIT 39.8 % (36.0-47.0); HEMOGLOBIN 12.5 g/dl (12.0-15.5); MEAN CORPUSCULAR HGB CONC 31.4 g/dl (32.0-36.5); MEAN CORPUSCULAR VOLUME 92.3 fl (80.0-96.0); PLATELET COUNT, AUTOMATED 182 10^3/uL (150-450); RED BLOOD COUNT 4.31 10^6/uL (4.00-5.40); WHITE BLOOD COUNT 10.6 10^3/uL (4.0-10.0)
[2021-07-24 07:51] LABS: CALCIUM LEVEL 8.8 MG/DL (8.8-10.2); CREATININE FOR GFR 1.44 MG/DL (0.55-1.30); GLOMERULAR FILTRATION RATE 38.8 (>45); MAGNESIUM LEVEL 1.4 MG/DL (1.8-2.4); POTASSIUM SERUM 4.1 MEQ/L (3.5-5.1)
[2021-07-24] MEDS: HumaLOG INSULIN (NovoLOG) PER UNIT SC SCH ×4 (08:02→20:33)
[2021-07-24] MEDS: CINACALCET 30 MG TAB (SENSIPAR) PO SCH (09:20)
[2021-07-24] MEDS: GABAPENTIN 300 MG CAP PO SCH ×3 (09:20→21:17)
[2021-07-24] MEDS: MAGNESIUM OXIDE 400MG TAB (MAG-OX) PO SCH ×2 (09:20→21:18)
[2021-07-24] MEDS: HEPARIN SOD (PORCINE) 5000UNITS/ML 1ML VIAL/SYRINGE SQ SCH ×2 (09:21→21:17)
[2021-07-24] MEDS: OMEPRAZOLE 20 MG CAP PO SCH (09:21)
[2021-07-24] MEDS: LEVEMIR (INSULIN DETEMIR) 1 UNITS/0.01ML SC SCH ×2 (09:21→21:18)
[2021-07-24] MEDS: CARVedilol 12.5 MG TAB PO SCH ×2 (09:21→21:19)
[2021-07-24] MEDS: FLUTICASONE PROP 0.05% NASAL SPRAY 16 GM (FLONASE) NARES SCH ×2 (09:21→21:18)
[2021-07-24] MEDS: LIDOCAINE 5% (LIDODERM) PATCH TD SCH (12:10)
[2021-07-24 14:00] VITALS: BP 136/87
--- NOTE | 2021-07-24 16:36 | IPNPDOC ---
Text Note Date of Service The patient was seen on 07/24/21. NOTE Subjective: Patient is a 66-year-old female presented [facility] with inability to walk after corticosteroid knee injections. Patient states she is still unable to walk. Patient did have mild response to Percocet that was given to her overnight. Patient worked with physical therapy but her pain was unable to be controlled so she was unable to walk into be safely discharged. Patient denies any other complaints at this time. Review of systems: General: Patient denies fevers HEENT: Patient denies headaches Cardiovascular: Patient denies chest pain Respiratory: Patient denies shortness of breath, cough GI: Patient denies abdominal pain, nausea, vomiting, diarrhea : Patient denies increased frequency or pain with urination Extremities: Patient reports pain in her extremities Neurological: Patient denies numbness or tingling in legs Physical exam: Vitals: See below General: Alert and oriented female patient who was sitting in bed when I walked in. Patient had ice packs on her bilateral knees when I walked in. Patient not appear to be in any acute distress. HEENT: Normocephalic, atraumatic, moist mucous membranes. Neck: No lymphadenopathy or thyromegaly Cardiac: Regular rate and rhythm, no murmurs, normal S1, normal S2 Pulm: Clear to auscultation bilaterally. No wheezes, rhonchi, rales Abd: Nondistended, nontender to palpation, normal bowel sounds Ext: No edema bilateral lower extremities. No swelling or erythema overlying the patient's knees bilaterally. Patient does have some tenderness along the joint line of her bilateral knees. Patient does have difficulty bending and extending her knees bilaterally secondary to pain. When pressed, patient does have full active and passive range of motion. Labs: See below Imaging: No new imaging is been performed Assessment/plan: 66-year-old female presented to hospital with bilateral knee pain after steroid injection and inability to ambulate. 1. Bilateral knee pain with difficulty ambulating. Patient was admitted under observation however, she this was changed to inpatient as the patient was unable to go home due to her difficulty ambulating. We will continue to work with the patient with physical therapy and once the patient is able to ambulate, she can be discharged home. 2. Type 2 diabetes. Continue sliding scale insulin as well as basal insulin. Patient will be placed on consistent carb diet with hypoglycemic protocol. 3. Hypertension. Continue patient's home medications with hold parameters. 4. CKD stage IIIb. Avoid NSAIDs and other nephrotoxic medications. Monitor patient's creatinine closely. 5. GERD. Continue home medications. 6. Hypomagnesemia. Continue with supplementation orally. DVT Prophylaxis: Heparin Disposition: Pending improvement in the patient's ability to walk. VS,Fishbone, I+O VS, Fishbone, I+O Laboratory Tests 07/24/21 06:03 Vital Signs Date Time Temp Pulse Resp B/P (MAP) Pulse Ox O2 Delivery O2 Flow Rate FiO2 07/24/21 14:00 97.6 94 20 136/87 (103) 97 Room Air I&O- Last 24 Hours up to 6 AM 07/24/21 06:00 Intake Total 1080 ml Output Total 700 ml Balance 380 ml ROBBIE VELASQUEZ DO Jul 24, 2021 16:36
[2021-07-24] MEDS ORDERED: **NOTE PATIENT COMMENT** MISC XX SCH (21:00)
[2021-07-24] MEDS: DIVALPROEX 250 MG TAB PO SCH (21:18)
[2021-07-24] MEDS: allopurinoL 300 MG TAB PO SCH (21:18)
[2021-07-24] MEDS: LATANOPROST 0.005% OPHTH SOLN 2.5 ML OU SCH (21:18)
[2021-07-24] MEDS: rOPINIRole 1MG TAB PO SCH (21:18)
[2021-07-24] MEDS: SIMVASTATIN 40 MG TAB PO SCH (21:19)
[2021-07-24 22:00] VITALS: BP 141/86
[2021-07-25 06:00] VITALS: BP 142/85
[2021-07-25] MEDS: HumaLOG INSULIN (NovoLOG) PER UNIT SC SCH ×2 (07:30→12:34)
[2021-07-25 08:20] VITALS: BP 140/80
[2021-07-25 08:50] LABS: HEMATOCRIT 42.1 % (36.0-47.0); MEAN CORPUSCULAR HEMOGLOBIN 28.9 pg (27.0-33.0); MEAN CORPUSCULAR HGB CONC 30.9 g/dl (32.0-36.5); MEAN CORPUSCULAR VOLUME 93.6 fl (80.0-96.0); PLATELET COUNT, AUTOMATED 204 10^3/uL (150-450); WHITE BLOOD COUNT 11.1 10^3/uL (4.0-10.0)
[2021-07-25 09:11] LABS: CALCIUM LEVEL 8.9 MG/DL (8.8-10.2); CREATININE FOR GFR 1.33 MG/DL (0.55-1.30); GLOMERULAR FILTRATION RATE 42.5 (>45); MAGNESIUM LEVEL 1.5 MG/DL (1.8-2.4); POTASSIUM SERUM 4.2 MEQ/L (3.5-5.1)
[2021-07-25] MEDS: MAGNESIUM OXIDE 400MG TAB (MAG-OX) PO SCH (10:05)
[2021-07-25] MEDS: OMEPRAZOLE 20 MG CAP PO SCH (10:06)
[2021-07-25] MEDS: GABAPENTIN 300 MG CAP PO SCH (10:06)
[2021-07-25] MEDS: CINACALCET 30 MG TAB (SENSIPAR) PO SCH (10:06)
[2021-07-25] MEDS: PERCOCET 5MG/325MG TAB PO PRN (10:08)
[2021-07-25] MEDS: HEPARIN SOD (PORCINE) 5000UNITS/ML 1ML VIAL/SYRINGE SQ SCH (10:11)
[2021-07-25 10:13] VITALS: BP 127/74
[2021-07-25] MEDS: CARVedilol 12.5 MG TAB PO SCH (10:13)
[2021-07-25] MEDS: LEVEMIR (INSULIN DETEMIR) 1 UNITS/0.01ML SC SCH (10:15)
[2021-07-25] MEDS: LIDOCAINE 5% (LIDODERM) PATCH TD SCH (10:19)
[2021-07-25] MEDS: FLUTICASONE PROP 0.05% NASAL SPRAY 16 GM (FLONASE) NARES SCH (10:19)
[2021-07-25] MEDS ORDERED: PERCOCET PO (12:27)
[2021-07-25 14:00] VITALS: BP 135/80
--- NOTE | 2021-07-25 19:11 | DS.PDOC ---
Discharge Summary General Date of Admission Jul 24, 2021 at 16:29 Date of Discharge 07/25/2021 Primary Care Physician: BRYON TOMPKINS MD Attending Physician: ROBBIE VELASQUEZ DO Discharge Summary PROCEDURES PERFORMED DURING STAY: None. ADMITTING DIAGNOSES: 1. Bilateral knee pain with difficulty ambulating. 2. Type 2 diabetes 3. Hypertension 4. CKD stage IIIb 5. GERD 6. Hypomagnesemia DISCHARGE DIAGNOSES: 1. Bilateral knee pain with difficulty ambulating, improved 2. Type 2 diabetes 3. Hypertension 4. CKD stage IIIb 5. GERD 6. Hypomagnesemia, improved COMPLICATIONS/CHIEF COMPLAINT: Knee Pain. HISTORY OF PRESENT ILLNESS: Patient is a 66-year-old female who states she went to her orthopedic surgeon's office yesterday and received bilateral steroid knee injections around 1 in the afternoon. Patient states that she felt good for the first few hours however, began to have increased pain to the point where she was unable to walk later on the afternoon. Patient describes the pain as an ache in both knees and has difficulty moving her knees back and forth. Patient was also having difficulty bearing weight so she presented to the emergency department. In the emergency department, imaging studies did not reveal any acute trauma. Patient denies having any acute trauma to the knees. Patient was unable to walk and because she lives at home, the decision was made to admit the patient. Patient will be admitted for further observation. HOSPITAL COURSE: Patient working physical therapy and on the first day of her hospitalization, was unable to ambulate. Patient did not clear physical therapy due to worst pain in her knees. Patient was started on oxycodone which she took a few tablets of which did help. Lidoderm patches were also placed in the patient's knees. Patient worked in physical therapy on 07/25/2021 and was able to walk enough to go safely home. Patient had prescriptions written for a bariatric commode and a bariatric walker. Patient said that the pain in her knees was still present but had improved to the point where she was able to ambulate with assistance. Patient was deemed ready for discharge and was discharged home on 07/25/2021. DISCHARGE MEDICATIONS: Please see below. ALLERGIES: Please see below. PHYSICAL EXAMINATION ON DISCHARGE: VITAL SIGNS: Please see below. General: Alert and oriented female patient who was sitting up in bed when I walked in. Patient not appear to be in any acute distress. HEENT: Normocephalic, atraumatic, moist mucous membranes. Neck: No lymphadenopathy or thyromegaly Cardiac: Regular rate and rhythm, no murmurs, normal S1, normal S2 Pulm: Clear to auscultation bilaterally. No wheezes, rhonchi, rales Abd: Nondistended, nontender to palpation, normal bowel sounds Ext: No edema bilateral lower extremities. No swelling in bilateral knees. Minimal tenderness along the joint lines. Patient does have some difficulty bending and extending her knee bilaterally secondary to pain. No swelling or erythema LABORATORY DATA: Please see below. IMAGING: Bilateral knee x-ray performed on 07/23/2021 was reported to show moderate degenerative osteoarthritis of the right knee, no acute fracture. Moderate degenerative osteoarthritis, greatest in the medial compartment of the left knee, otherwise negative left knee. PROGNOSIS: Fair ACTIVITY: As tolerated. DIET: Consistent carbohydrate DISCHARGE PLAN: Discharge home with home health services DISPOSITION: Home Health Service. DISCHARGE INSTRUCTIONS: 1. Follow-up with primary care provider within 3 to 5 days of discharge. 2. Follow-up with orthopedic surgery 3. Return the emergency department symptoms worsen ITEMS TO FOLLOWUP ON ON OUTPATIENT: 1. None. DISCHARGE CONDITION: Stable. TIME SPENT ON DISCHARGE: 35 minutes. Vital Signs/I&Os Vital Signs Date Time Temp Pulse Resp B/P (MAP) Pulse Ox O2 Delivery O2 Flow Rate FiO2 07/25/21 14:00 97.6 79 18 135/80 (98) 94 Room Air I&O- Last 24 Hours up to 6 AM 07/25/21 06:00 Intake Total 1240 ml Output Total 1971 ml Balance -731 ml Laboratory Data Labs 24H Laboratory Tests 2 07/24/21 20:18: Bedside Glucose (Misc Panel) 231H 07/25/21 07:46: Bedside Glucose (Misc Panel) 98 07/25/21 08:25: Nucleated Red Blood Cells % (auto) 0.0, Anion Gap 5L, Glomerular Filtration Rate 42.5L, Calcium Level 8.9, Magnesium Level 1.5L 07/25/21 12:06: Bedside Glucose (Misc Panel) 226H CBC/BMP Laboratory Tests 07/25/21 08:25 FSBS Laboratory Tests Test 07/24/21 20:18 07/25/21 07:46 07/25/21 12:06 Range/Units Bedside Glucose (Misc Panel) 231 98 226 80-115 MG/DL Discharge Medications Scheduled Carvedilol (Carvedilol) 25 Mg Tablet, 25 MG PO BID, (Reported) Cinacalcet (Sensipar) 30 Mg Tablet, 30 MG PO 5XW, (Reported) MON//THU//FRI Divalproex Sodium (Divalproex Sodium) 250 Mg Tablet.dr, 250 MG PO QHS, (Reported) Fluticasone Propionate (Flonase Allergy Relief) 9.9 Ml [place].susp, 1 SPRAY NARES BID, (Reported) Gabapentin (Gabapentin) 600 Mg Tablet, 600 MG PO TID, (Reported) Glimepiride (Glimepiride) 4 Mg Tablet, 4 MG PO BID, (Reported) Insulin Degludec (Tresiba Flextouch U-200) 200 Unit/1 Ml Insuln.pen, 150 UNIT SC QHS, (Reported) Insulin Human Lispro (Novolog) 100 U/Ml Inj, 1 DOSE SC AC, (Reported) PER SLIDING SCALE Latanoprost (Xalatan) 0.005% 2.5ML Drops, 1 DROP OU QHS, (Reported) Liraglutide (Victoza 2-Ludwin) 18 Mg/3 Ml Inj, 1.8 MG SC QHS, (Reported) Magnesium Oxide (Magox 400) 400 Mg Tablet, 800 MG PO BID, (Reported) Omeprazole (Omeprazole) 20 Mg Capsule.dr, 20 MG PO DAILY, (Reported) Ropinirole HCl (Ropinirole HCl) 1 Mg Tab, 1 MG PO QHS, (Reported) Simvastatin (Zocor) 80 Mg Tab, 80 MG PO QHS, (Reported) allopurinoL (allopurinoL) 300 Mg Tablet, 300 MG PO QHS, (Reported) Scheduled PRN Oxycodone/Acetaminophen (Oxycodone-Acetaminophen 5-325) 1 Each Tablet, 1 TAB PO Q6HP PRN for PAIN LEVEL 5-10 Allergies Coded Allergies: No Known Allergies (Unverified , 07/24/20) ROBBIE VELASQUEZ DO Jul 25, 2021 19:11
== END 2021-07-25 15:10 | disposition home health service (06) | DRG 556 ==
LOC: M ED 03:00 → M ED INP 03:01 → ENRESERV 10:10 → M MS5PR 11:31 → OBSVTOIN 07-24 16:29
PROVIDERS: ADMIT Family Medicine; ATTEND Family Medicine
DX: M25.561 Pain in right knee (principal); T88.7XXA Unspecified adverse effect of drug or medicament, initial encounter; M25.562 Pain in left knee; E11.40 Type 2 diabetes mellitus with diabetic neuropathy, unspecified; N18.32 Chronic kidney disease, stage 3b; E11.22 Type 2 diabetes mellitus with diabetic chronic kidney disease; R26.2 Difficulty in walking, not elsewhere classified; I12.9 Hypertensive chronic kidney disease with stage 1 through stage 4 chronic kidney disease, or unspecified chronic kidney disease; E78.5 Hyperlipidemia, unspecified; K21.9 Gastro-esophageal reflux disease without esophagitis; M17.0 Bilateral primary osteoarthritis of knee; M19.90 Unspecified osteoarthritis, unspecified site; G25.81 Restless legs syndrome; F32.A Depression, unspecified; E55.9 Vitamin D deficiency, unspecified; G47.33 Obstructive sleep apnea (adult) (pediatric); H40.9 Unspecified glaucoma; Z90.49 Acquired absence of other specified parts of digestive tract; Z20.822 Contact with and (suspected) exposure to COVID-19; Z79.4 Long term (current) use of insulin; Z79.899 Other long term (current) drug therapy; Z86.718 Personal history of other venous thrombosis and embolism; Z86.711 Personal history of pulmonary embolism

== ENCOUNTER 2021-07-26 09:26 | Emergency (ER) | payer MEDICARE, MEDICAID ==
[~2021-07-26] VITALS: Ht 165.1 cm; Wt 151.8 kg
[~2021-07-26 09:26] MED LIST changes: +ALLO300T2 PO; +DIVA250T67 PO; +FLON1SPR NARES; +OMEP-218 PO; +PERCOCET PO
--- OUTSIDE RECORDS SUMMARY | 2021-07-26 09:34 | CCD ---
Author Author [facility] Organization [facility] Address Unknown Phone Unavailable Care Team Providers Care Mechanic Sound Technician Name Role Phone Justyna Henley PA-C Unavailable Unavailabl e Justyna Henley PA-C Unavailable Unavailabl e Justyna Henley PA-C Unavailable Unavailabl e Justyna Henley PA-C Unavailable Unavailabl e Justyna Henley, PA-C Unavailable Unavailabl e Fish, [facility], PA-C Unavailable Unavailabl e Fish, [facility], PA-C Unavailable Unavailabl e Fish, [facility], PA-C Unavailable Unavailabl e Fish, [facility], PA-C Unavailable Unavailabl e Fish, [facility], PA-C Unavailable Unavailabl e Fish, [facility], PA-C Unavailable Unavailabl e Fish, [facility], PA-C Unavailable Unavailabl e Fish, [facility], PA-C Unavailable Unavailabl e Fish, [facility], PA-C Unavailable Unavailabl e Fish, [facility], PA-C Unavailable Unavailabl e Fish, [facility], PA-C Unavailable Unavailabl e Fish, [facility], PA-C Unavailable Unavailabl e Fish, [facility], PA-C Unavailable Unavailabl e Fish, [facility], PA-C Unavailable Unavailabl e Fish, [facility], PA-C Unavailable Unavailabl e Fish, [facility], PA-C Unavailable Unavailabl e Fish, [facility], PA-C Unavailable Unavailabl e Fish, [facility], PA-C Unavailable Unavailabl e Fish, [facility], PA-C Unavailable Unavailabl e Fish, [facility], PA-C Unavailable Unavailabl e Fish, [facility], PA-C Unavailable Unavailabl e Fish, [facility], PA-C Unavailable Unavailabl e Fish, [facility], PA-C Unavailable Unavailabl e Fish, [facility], PA-C Unavailable Unavailabl e Fish, [facility], PA-C Unavailable Unavailabl e Fish, [facility], PA-C Unavailable Unavailabl e Fish, [facility], PA-C Unavailable Unavailabl e Fish, [facility], PA-C Unavailable Unavailabl e Fish, [facility], PA-C Unavailable Unavailabl e Fish, [facility], PA-C Unavailable Unavailabl e Fish, Justyna FRANK PA-C Unavailable Unavailabl e El-Khally, A Ziad MD [...] Ziad MD Unavailable Unavailable MAT, B MELECIO FR[employer] P[employer]ER Unavailable Unavailable MAT, B MELECIO FR[employer] P[employer]ER Unavailable Unavailable MAT, B MELECIO FRUIT PACKER Unavailable Unavailable MAT, B MELECIO FRUIT PACKER Unavailable Unavailable MAT, B MELECIO FRUIT PACKER Unavailable Unavailable MAT, B MELECIO FR[employer] PACKER Unavailable Unavailable MAT, B MELECIO FRUIT PACKER Unavailable Unavailable MAT, B MELECIO FRUIT PACKER Unavailable Unavailable MAT, B MELECIO FRUIT PACKER Unavailable Unavailable MAT, B MELECIO FRUIT PACKER Unavailable Unavailable MAT, B MELECIO FRUIT PACKER Unavailable Unavailable MAT, B MELECIO FRUIT PACKER Unavailable Unavailable MAT, B MELECIO FRUIT PACKER Unavailable Unavailable MAT, B MELECIO FRUIT PACKER Unavailable Unavailable MAT, B MELECIO FRUIT PACKER Unavailable Unavailable MAT, B MELECIO FRUIT PACKER Unavailable Unavailable MAT, B MELECIO FRUIT PACKER Unavailable Unavailable MAT, B MELECIO FRUIT PACKER Unavailable Unavailable MAT, B MELECIO FRUIT PACKER Unavailable Unavailable MAT, B MELECIO FRUIT PACKER Unavailable Unavailable MAT, B MELECIO FRUIT PACKER Unavailable Unavailable MAT, B MELECIO FRUIT PACKER Unavailable Unavailable MAT, B MELECIO FRUIT PACKER Unavailable Unavailable MAT, B MELECIO FRUIT PACKER Unavailable Unavailable MAT, B MELECIO FRUIT PACKER Unavailable Unavailable MAT, B MELECIO FRUIT PACKER Unavailable Unavailable MAT, B MELECIO FRUIT PACKER Unavailable Unavailable MAT, B MELECIO FRUIT PACKER Unavailable Unavailable MAT, B MELECIO FRUIT PACKER Unavailable Unavailable MAT, B MELECIO FRUIT PACKER Unavailable Unavailable MAT, B MELECIO FRUIT PACKER Unavailable Unavailable MAT, B MELECIO FRUIT PACKER Unavailable Unavailable MAT, B MELECIO FRUIT PACKER Unavailable Unavailable MAT, B MELECIO FRUIT PACKER Unavailable Unavailable MAT, B MELECIO FRUIT PACKER Unavailable Unavailable MAT, B MELECIO FRUIT PACKER Unavailable Unavailable MAT, B MELECIO FRUIT PACKER Unavailable Unavailable MAT, B MELECIO FRUIT PACKER Unavailable Unavailable MAT, B MELECIO FRUIT PACKER Unavailable Unavailable MAT, B MELECIO FRUIT PACKER Unavailable Unavailable MAT, B MELECIO FRUIT PACKER Unavailable Unavailable MAT, B MELECIO FRUIT PACKER Unavailable Unavailable MAT, B MELECIO FRUIT PACKER Unavailable Unavailable MAT, B MELECIO FRUIT PACKER Unavailable Unavailable MAT, B MELECIO FRUIT PACKER Unavailable Unavailable MAT, B MELECIO FRUIT PACKER Unavailable Unavailable MAT, B MELECIO FRUIT PACKER Unavailable Unavailable MAT, B MELECIO FRUIT PACKER Unavailable Unavailable MAT, B MELECIO FRUIT PACKER Unavailable Unavailable MAT, B MELECIO FRUIT PACKER Unavailable Unavailable MAT, B MELECIO FRUIT PACKER Unavailable Unavailable MAT, B MELECIO FRUIT PACKER Unavailable Unavailable MAT, B MELECIO FRUIT PACKER Unavailable Unavailable MAT, B MELECIO FRUIT PACKER Unavailable Unavailable MAT, B MELECIO FRUIT PACKER Unavailable Unavailable MAT, B MELECIO FRUIT PACKER Unavailable Unavailable MAT, B MELECIO FRUIT PACKER Unavailable Unavailable MAT, B MELECIO FRUIT PACKER Unavailable Unavailable MAT, B MELECIO FRUIT PACKER Unavailable Unavailable MAT, B MELECIO FRUIT PACKER Unavailable Unavailable MAT, B MELECIO FRUIT PACKER Unavailable Unavailable MAT, B MELECIO FRUIT PACKER Unavailable Unavailable Lizeth Melgar MD Unavailable Unavailable [...] Unavailable Lizeth Melgar MD Unavailable Unavailable Lizeth Melgra MD Unavailable Unavailable Lizeth Melgar MD Unavailable [...] Unavailable Ivy, M Barratt PA Unavailable Unavailable Canadian, V BRAD PA-C Unavailable Unavailable Pankaj, V BRAD PA-C Unavailable Unavailable Pankaj, V BRAD PA-C Unavailable Unavailable Canadian, V BRAD PA-C Unavailable Unavailable Canadian, V BRAD PA-C Unavailable Unavailable Canadian, V BRAD PA-C Unavailable Unavailable Canadian, V BRAD PA-C Unavailable Unavailable Canadian, V BRAD PA-C Unavailable Unavailable Pankaj, V BRAD PA-C Unavailable Unavailable Canadian, V BRAD PA-C Unavailable Unavailable Canadian, V BRAD PA-C Unavailable Unavailable Canadian, V BRAD PA-C Unavailable Unavailable Canadian, V BRAD PA-C Unavailable Unavailable Canadian, V BRAD PA-C Unavailable Unavailable Mir Jang [...] is protected by Article 27-F of the [facility] Public Health law. If you continue you may have access to information: Regarding HIV / AIDS; Provided by facilities licensed or operated by the [facility] Office of Mental Health; or Provided by the [place] Office for People With Developmental Disabilities. If such information is present, then the following [facility] mandated warning applies: This information has [...] law may result in a fine or [place] health care facility sentence or both. A general authorization for the release of medical or other information is NOT sufficient authorization for further disc losure. Allergies and Adverse Reactions Type Description Substance Reaction Status Data Source(s ) Propensity to adverse reactions NO ALLERGIES ON FILE NO ALLERGIES ON FILE [facility] Family History Family Member Name Family Member Gender Family Member Status Date o f Status Description Data Source(s) Unknown Unknown Problem [facility] ([facility]) Unknown Male Problem MEDENT ([facility]) Unknown Unknown Problem MEDENT ([facility]) Encounters Encounter Providers Location Date Indications Data Source(s ) Office Visit Attender: Niesha FRANK PA-C Physical Therapy 07/22/2021 01:15:00 PM EDT MED[facility] ([facility]) Office Visit, Est Pt., Level 3 PC [address] [place] [address] 04/30/2021 12:00:00 AM EDT eCW1 ([facility] access hospital) Unknown [address] [facility] [place] [address] 04/29/2021 12:00:00 AM EDT eCW1 ([facility]) Unknown [address] [facility] [place] [address] 04/11/2021 12:00:00 AM EDT eCW1 ([facility]) Outpatient Attender: BRAD [email or web address] 12:00:00 AM EDT - 04/09/2021 08:25:28 AM EDT [facility] Outpatient [address] [facility] [id number] 04/02/2021 12:00:00 AM EDT eCW1 ([facility]) Unknown [address] [facility] [address] 04/02/2021 12:00:00 AM EDT eCW1 ([facility]) Outpatient Attender: Nereyda Means MDA dmitter: Nereyda Means MDReferrer: Nereyda Means MD [email or web address] 03/28/2021 06:59:00 AM EDT - 03/28/2021 01:08:00 PM EDT [facility] Patient discharged. Outpatient [address] [facility] [address] 03/19/2021 12:00:00 AM EDT eCW1 ([facility]) Outpatient Attender: BRAD RODGERSSHONDA-SJP.SHONDA 12:00:00 AM EDT - 03/12/2021 09:03:36 AM EDT [facility] Outpatient Attender: MELECIO RIVERO NP Physical Therapy 09:15:00 AM EDT MED[facility] ([facility]) Outpatient Referrer: Yaz [email or web address] 04/2021 12:06:40 PM EDT - 03/05/2021 02:05:28 PM EDT [facility] Outpatient Attender: Mildred Richard MD Main office - [facility] 02/14/2021 01:00:00 PM EDT MED[facility] ([facility]) Outpatient Attender: Yaz Salinas MDReferrer: Evin LAMAR.[email or web address] 01/24/2021 02:48:45 PM EDT - 01/24/2021 04:09:53 PM EDT [facility] Outpatient Referrer: Bairon Melgar MD [email or web address] 01/24/20 08:29:04 AM EDT - 01/23/2021 08:29:07 AM EDT [facility] Office Visit Attender: Niesha FRANK PA-C Physical Therapy 01/17/2021 09:45:00 AM EDT [facility] ([facility]) Outpatient [address] [facility] [address] 01/15/2021 12:00:00 AM EDT eCW1 ([facility]) Outpatient Attender: Bairon Melgar MDAdmit ter: Bairon Melgar MDReferrer: Bairon Melgar MD [email or web address] 12/25/2020 02:28:12 PM EDT - 01/28/2021 12:03:00 PM EDT [facility] Patient discharged. Outpatient [address] [facility] [address] 12/11/2020 12:00:00 AM EDT eCW1 ([facility]) Outpatient Attender: MELECIO RIVERO NP Physical Therapy 09:30:00 AM EST MED[facility] ([facility]) OFFICE OUTPATIENT VISIT 15 MINUTES Attender: Niesha FRANK PA-C Physical Therapy 11/30/2020 01:15:00 PM EST [facility] ([facility]) [place] [address] [facility] [address] 11/13/2020 12:00:00 AM EST eCW1 ([facility]) Unknown [address] [facility] [place] [address] 11/05/2020 12:00:00 AM EST eCW1 ([facility]) Unknown [address] [facility] [place] [address] 10/23/2020 12:00:00 AM EST eCW1 ([facility]) Unknown [address] [facility] [place] [address] 10/16/2020 12:00:00 AM EST eCW1 ([facility]) Unknown [address] [facility] [place] [address] 10/09/2020 12:00:00 AM EST eCW1 ([facility]) Outpatient [address] [facility] [address] 10/01/2020 12:00:00 AM EST eCW1 ([facility]) Unknown [address] [facility] [place] [address] 10/01/2020 12:00:00 AM EST eCW1 ([facility]) Office Visit Attender: Mildred Richard MD Main office - [facility] 09/25/2020 01:45:00 PM EST [facility] ([facility]) Unknown [address] [facility] [address] 09/10/2020 12:00:00 AM EST eCW1 ([facility]) Unknown [address] [facility] [address] 09/09/2020 12:00:00 AM EST eCW1 ([facility]) Outpatient Attender: MELECIO RIVERO NP Physical Therapy 12:15:00 PM EST [facility] ([facility]) Outpatient [address] [facility] [place] [address] 08/21/2020 12:00:00 AM EST eCW1 ([facility]) OFFICE OUTPATIENT VISIT 15 MINUTES Attender: Niesha FRANK PA-C Physical Therapy 08/17/2020 05:00:00 PM EST [facility] ([facility]) Outpatient [address] [facility] [address] 08/06/2020 12:00:00 AM EST eCW1 ([facility]) Outpatient [address] [facility] [place] [address] 07/18/2020 12:00:00 AM EDT eCW1 ([facility]) Unknown [address] [facility] [place] [address] 07/18/2020 12:00:00 AM EDT eCW1 ([facility]) Unknown [address] [facility] [address] 07/18/2020 12:00:00 AM EDT eCW1 ([facility]) Outpatient [address] [facility] [address] 06/27/2020 12:00:00 AM EDT eCW1 ([facility]) Outpatient Attender: Lorenzo BELLAMY Physical Therapy 01:00:00 PM EDT MED[facility] ([facility]) Outpatient Attender: MELECIO RIVERO NP Physical Therapy 02:15:00 PM EDT MED[facility] ([facility]) Immunizations Vaccine Date Status Description Data Source(s) COVID-19 VACCINE Moderna 11/15/2020 12:00:00 AM EST completed [place] Vaccine Series Complete: YESThis Data wa s Submitted to [facility] Via [employer]. 11/15/2020 12:00:00 AM EST completed <td I D="[id number]">Covid-19 (Moderna)</td><td>11/15/2020, 10/18/2020</td><td></td> [facility] COVID-19 VACCINE Moderna 10/18/2020 12:00:00 AM EST completed [place] Vaccine Series Complete: NOThis Data was Submitted to [facility] Via [employer]. 10/18/2020 12:00:00 AM EST completed <td I D="[id number]">Covid-19 (Moderna)</td><td>11/15/2020, 10/18/2020</td><td></td> [facility] influenza, recombinant, quadrIvalent,injectable, prese rvative free 06/27/2020 04:07:00 PM EDT completed eCW1 ([facility]) influenza, recombinant, quadrIvalent,injectable, prese rvative free 06/27/2020 04:07:00 PM EDT completed eCW1 ([facility]) influenza, recombinant, quadrIvalent,injectable, prese rvative free 06/27/2020 04:07:00 PM EDT completed eCW1 ([facility]) influenza, recombinant, quadrIvalent,injectable, prese rvative free 06/27/2020 04:07:00 PM EDT completed eCW1 ([facility]) influenza, recombinant, quadrIvalent,injectable, prese rvative free 06/27/2020 04:07:00 PM EDT completed eCW1 ([facility]) influenza, recombinant, quadrIvalent,injectable, prese rvative free 06/27/2020 04:07:00 PM EDT completed eCW1 ([facility]) influenza, recombinant, quadrIvalent,injectable, prese rvative free 06/27/2020 04:07:00 PM EDT completed eCW1 ([facility]) influenza, recombinant, quadrIvalent,injectable, prese rvative free 06/27/2020 04:07:00 PM EDT completed eCW1 ([facility]) influenza, recombinant, quadrIvalent,injectable, prese rvative free 06/27/2020 04:07:00 PM EDT completed eCW1 ([facility]) influenza, recombinant, quadrIvalent,injectable, prese rvative free 06/27/2020 04:07:00 PM EDT completed eCW1 ([facility]) influenza, recombinant, quadrIvalent,injectable, prese rvative free 06/27/2020 04:07:00 PM EDT completed eCW1 ([facility]) influenza, recombinant, quadrIvalent,injectable, prese rvative free 06/27/2020 04:07:00 PM EDT completed eCW1 ([facility]) influenza, recombinant, quadrIvalent,injectable, prese rvative free 06/27/2020 04:07:00 PM EDT completed eCW1 ([facility]) influenza, recombinant, quadrIvalent,injectable, prese rvative free 06/27/2020 04:07:00 PM EDT completed eCW1 ([facility]) influenza, recombinant, quadrIvalent,injectable, prese rvative free 06/27/2020 04:07:00 PM EDT completed eCW1 ([facility]) influenza, recombinant, quadrIvalent,injectable, prese rvative free 06/27/2020 04:07:00 PM EDT completed eCW1 ([facility]) influenza, recombinant, quadrIvalent,injectable, prese rvative free 06/27/2020 04:07:00 PM EDT completed eCW1 ([facility]) influenza, recombinant, quadrIvalent,injectable, prese rvative free 06/27/2020 04:07:00 PM EDT completed eCW1 ([facility]) influenza, recombinant, quadrIvalent,injectable, prese rvative free 06/27/2020 04:07:00 PM EDT completed eCW1 ([facility]) influenza, recombinant, quadrIvalent,injectable, prese rvative free 06/27/2020 04:07:00 PM EDT completed eCW1 ([facility]) influenza, recombinant, quadrIvalent,injectable, prese rvative free 06/27/2020 04:07:00 PM EDT completed eCW1 ([facility]) influenza, recombinant, quadrIvalent,injectable, prese rvative free 06/27/2020 04:07:00 PM EDT completed eCW1 ([facility]) influenza, recombinant, quadrIvalent,injectable, prese rvative free 06/27/2020 04:07:00 PM EDT completed eCW1 ([facility]) Pneumococcal conjugate PCV 06/27/2020 02:09:00 PM EDT completed eCW1 ([facility]) Pneumococcal conjugate PCV 06/27/2020 02:09:00 PM EDT completed eCW1 ([facility]) Pneumococcal conjugate PCV 06/27/2020 02:09:00 PM EDT completed eCW1 ([facility]) Pneumococcal conjugate PCV 06/27/2020 02:09:00 PM EDT completed eCW1 ([facility]) Pneumococcal conjugate PCV 06/27/2020 02:09:00 PM EDT completed eCW1 ([facility]) Pneumococcal conjugate PCV 06/27/2020 02:09:00 PM EDT completed eCW1 ([facility]) Pneumococcal conjugate PCV 06/27/2020 02:09:00 PM EDT completed eCW1 ([facility]) Pneumococcal conjugate PCV 06/27/2020 02:09:00 PM EDT completed eCW1 ([facility]) Pneumococcal conjugate PCV 06/27/2020 02:09:00 PM EDT completed eCW1 ([facility]) Pneumococcal conjugate PCV 13 06/27/2020 02:09:00 PM EDT completed eCW1 ([facility]) Pneumococcal conjugate PCV 13 06/27/2020 02:09:00 PM EDT completed eCW1 ([facility]) Pneumococcal conjugate PCV 13 06/27/2020 02:09:00 PM EDT completed eCW1 ([facility]) Pneumococcal conjugate PCV 13 06/27/2020 02:09:00 PM EDT completed eCW1 ([facility]) Pneumococcal conjugate PCV 13 06/27/2020 02:09:00 PM EDT completed eCW1 ([facility]) Pneumococcal conjugate PCV 13 06/27/2020 02:09:00 PM EDT completed eCW1 ([facility]) Pneumococcal conjugate PCV 13 06/27/2020 02:09:00 PM EDT completed eCW1 ([facility]) Pneumococcal conjugate PCV 13 06/27/2020 02:09:00 PM EDT completed eCW1 ([facility]) Pneumococcal conjugate PCV 13 06/27/2020 02:09:00 PM EDT completed eCW1 ([facility]) Pneumococcal conjugate PCV 13 06/27/2020 02:09:00 PM EDT completed eCW1 ([facility]) Pneumococcal conjugate PCV 13 06/27/2020 02:09:00 PM EDT completed eCW1 ([facility]) Pneumococcal conjugate PCV 13 06/27/2020 02:09:00 PM EDT completed eCW1 ([facility]) Pneumococcal conjugate PCV 13 06/27/2020 02:09:00 PM EDT completed eCW1 ([facility]) Pneumococcal conjugate PCV 13 06/27/2020 02:09:00 PM EDT completed eCW1 ([facility]) Medications Medication Brand Name Start Date Product Form Dose Route Admi nistrative Instructions Pharmacy Instructions Status Indications Reaction Description Data Source(s) 6 ML HYLAN G-F 20 8 MG/ML Prefilled Syringe [Synvisc] Synvis c One 07/22/2021 12:00:00 AM EDT active M EDENT ([facility]) 29 gauge x 1/2" 07/13/2021 12:00:00 AM EDT needle 600 USE 6 TIMES DAILY USE 6 TIMES DAILY SOLD: 07/14/2021 [facility] 200 unit/mL (3 mL) 07/10/2021 12:00:00 AM EDT insulin pen 18 INJECT 150 UNITS UNDER THE SKIN EVERY MORNING INJECT 150 UNITS UNDER THE SKIN EVERY MO RNING SOLD: 07/10/2021 [facility] 80 mg 06/28/2021 12:00:00 AM EDT tablet 90 TAKE ONE TABLET BY MOUTH EVERY EVENING TAKE ONE TABLET BY MOUTH EVERY EVENING SOLD: 06/28/2021 [facility] 600 mg 06/06/2021 12:00:00 AM EDT tablet 270 TAKE ONE TABLET BY MOUTH THREE TIMES A DAY MAXIMUM DAILY DOSE = 3 TABLETS TAKE ONE TABLET BY MOUTH THREE TIMES A DAY MAXIMUM DAILY DOSE = 3 TABLETS SOLD: 06/06/2021 [facility] DIAPER,BRIEF,ADULT, DISPOSABLE 06/06/2021 12:00:00 AM EDT mi sc 90 USE DIRECTED THREE TIMES A DAY USE DIRECTED THREE TIMES A DAY SOLD: 06/06/2021 [facility] glimepiride 4 MG Oral Tablet GLIMEPIRIDE 05/27/2021 12:00:00 AM EDT t ablet 180 TAKE ONE TABLET BY MOUTH TWICE A DAY TAKE ONE TABLET BY MOUT H TWICE A DAY SOLD: 05/27/2021 [facility] 300 mg 05/16/2021 12:00:00 AM EDT [...] Prednisone 04/03/2021 12:00:00 AM EDT active MEDENT ([facility] ) Flonase Allergy Relief 50 MCG/ACT Flonase Allergy Relief 50 MCG/ACT 04/02/2021 12:00:00 AM EDT active Flonase Allergy Relief 50 MCG/ACT eCW1 ([facility]) Flonase Allergy Relief 50 MCG/ACT Flonase Allergy Relief 50 MCG/ACT 04/02/2021 12:00:00 AM EDT active Flonase Allergy Relief 50 MCG/ACT eCW1 ([facility]) Flonase Allergy Relief 50 MCG/ACT Flonase Allergy Relief 50 MCG/ACT 04/02/2021 12:00:00 AM EDT active Flonase Allergy Relief 50 MCG/ACT eCW1 ([facility]) 50 mcg/actuation 04/02/2021 12:00:00 AM EDT spray,suspension 16 SPRAY TWO SPRAYS IN EACH NOSTRIL EVERY DAY SPRAY TWO SPRAYS IN EACH NOSTRIL EVERY DAY SOLD: 04/02/2021 [facility] Fluticasone propionate 0.05 MG/ACTUAT Metered Dose [place] 50 mcg/actuation FLUTICASONE PROPIONATE 04/02/2021 12:00:00 AM [...] Drugs fluticasone (FLONASE) 50 MCG/ACT nasal spray 4198-4429-20 04/02/2021 12:00:00 AM EDT active SPRAY TWO SPRAYS IN EACH NOSTRIL EVERY DAY [facility] Fluticasone propionate 0.05 MG/ACTUAT Metered Dose [place] 50 mcg/actuation FLUTICASONE PROPIONATE 04/02/2021 12:00:00 AM EDT spray,suspension 16 SPRAY TWO SPRAYS IN EACH NOSTRIL EVERY DAY SPRAY TWO SPRAYS IN EACH NOSTRIL EVERY DAY SOLD: 06/12/2021 [facility] Flonase Allergy Relief 50 MCG/ACT Flonase Allergy Relief 50 MCG/ACT 04/02/2021 12:00:00 AM EDT active Flonase Allergy Relief 50 MCG/ACT eCW1 ([facility]) Flonase Allergy Relief 50 MCG/ACT Flonase Allergy Relief 50 MCG/ACT 04/02/2021 12:00:00 AM EDT active Flonase Allergy Relief 50 MCG/ACT eCW1 ([facility]) Fluticasone propionate 0.05 MG/ACTUAT Metered Dose [place] 50 mcg/actuation FLUTICASONE PROPIONATE 04/02/2021 12:00:00 AM EDT spray,suspension 16 SPRAY TWO SPRAYS IN EACH NOSTRIL EVERY DAY SPRAY TWO SPRAYS IN EACH NOSTRIL EVERY DAY SOLD: 07/10/2021 [facility] 50 mg 04/02/2021 12:00:00 AM EDT tablet 30 TAKE ONE TABLET BY MOUTH DAILY AT BEDTIME TAKE ONE TABLET BY MOUTH DAILY AT BEDTIME SOLD: 04/02/2021 [facility] Amitriptyline Hydrochloride 10 MG Oral Tablet Amitriptyline HCL 03/26/2021 12:00:00 AM EDT completed MEDENT ([facility] ) 0.005 % 03/26/2021 [...] MOUTH 5 TIMES PER WEEK, Thursday SOLD: 07/10/2021 [facility] 30 mg 03/22/2021 12:00:00 AM EDT tablet 20 TAKE 1 TABLET BY MOUTH 5 TIMES PER WEEK, THURSDAY THROUGH THURSDAY TAKE 1 TABLET BY MOUTH 5 TIMES PER WEEK, Thursday SOLD: 05/13/2021 [facility] Amitriptyline Hydrochloride 10 MG Oral Tablet Amitript yline HCl 10 MG Amitriptyline HCl 10 MG 03/19/2021 12:00:00 AM EDT 1.0 {tablet_at_b edtime} active Amitriptyline HCl 10 MG e 1 ([facility]) 10 mg 03/19/2021 12:00:00 AM EDT [...] (300mg total) the night before the procedure. [facility] 75 mg 03/12/2021 12:00:00 AM EDT tablet [...] A DAY FOR 5 DAYS SOLD: 02/11/2021 [facility] Famotidine 20 MG Oral Tablet FAMOTIDINE 02/11/2021 12:00:00 AM EDT tab let 20 TAKE ONE TABLET BY MOUTH TWICE A DAY FOR PAIN TAKE ONE TABLET BY MOUTH TWICE A DAY FOR PAIN SOLD: 02/11/2021 [facility] 300 mg 02/04/2021 12:00:00 AM EDT tablet 90 TAKE ONE TABLET BY MOUTH EVERY DAY TAKE ONE TABLET BY MOUTH EVERY DAY SOLD: 02/05/2021 [facility] 1 mg 01/25/2021 12:00:00 AM EDT [...] 1 TABLET BY MOUTH DAILY SOLD: 01/15/2021 [facility] Cholecalciferol 1000 UNT Oral Tablet cho lecalciferol (VITAMIN D3) 25 MCG (1000 UT) tablet cholecalciferol (VITAMIN D3) 25 MCG (1000 UT) tablet 0 01/15/2021 12:00:00 AM EDT 1000 U Oral active Take 1,0 00 Units by mouth daily [facility] latanoprost 0.05 MG/ML Ophthalmic Soluti on latanoprost (XALATAN) 0.005 % ophthalmic solution latanoprost (XALATAN) 0.005 % ophthalmic solution 12/27 12:00:00 AM EDT active INSTILL ONE DROP INTO BOTH EYES EVERY NIGHT [facility] carvedilol 25 MG Oral Tablet carvedilol (COREG) 25 MG tablet carvedilol (COREG) 25 MG tablet 01/04/2021 12:00:00 AM EDT 25 mg Oral activ e Take 25 mg by mouth 2 (two) times a day [facility] Magnesium Oxide 400 MG Oral Tablet magnesium oxide (MA G-OX) 400 MG tablet magnesium oxide (MAG-OX) 400 MG tablet 01/03/2021 12:00:00 AM EDT active TAKE TWO TABLETS BY MOUTH TWICE A DAY [facility] 100 unit/mL 01/02/2021 12:00:00 AM EDT insulin pen 45 INJECT UNDER SKIN DIRECTED PER SLIDING SCALE MAX 53UNITS/DAY INJECT UNDER SKIN DIRECTED PER SLIDING SCALE MAX 53UNITS/DAY SOLD: 01/02/2021 [facility] cinacalcet 30 MG Oral Tablet cinacalcet (SENSIPAR) 30 MG tablet cinacalcet (SENSIPAR) 30 MG tablet 01/02/2021 12:00:00 AM EDT active TAKE 1 TABLET BY MOUTH 5 TIMES PER WEEK THURSDAY THROUGH THURSDAY [facility] 3 ML Insulin Lispro 100 UNT/ML Pen Injec tor [Humalog] HumaLOG KwikPen 100 UNIT/ML SOPN HumaLOG KwikPen 100 UNIT/ML SOPN 01/02/2021 12:00:00 AM EDT active INJECT UNDER SKIN DIRE CTED PER SLIDING SCALE MAX 53UNITS/DAY [facility] 100 unit/mL 01/02/2021 12:00:00 AM EDT insulin pen 45 INJECT UNDER SKIN DIRECTED PER SLIDING SCALE MAX 53UNITS/DAY INJECT UNDER SKIN DIRECTED PER SLIDING SCALE MAX 53UNITS/DAY SOLD: 05/15/2021 [facility] glimepiride 4 MG Oral Tablet GLIMEPIRIDE 12/03/2020 12:00:00 AM EST t ablet 180 TAKE ONE TABLET BY MOUTH TWICE A DAY TAKE ONE TABLET BY MOUT H TWICE A DAY SOLD: 03/01/2021 [facility] glimepiride 4 MG Oral Tablet glimepiride (AMARYL) 4 MG tablet glimepiride (AMARYL) 4 MG tablet 12/03/2020 12:00:00 AM EST 4 mg Oral active Take 4 mg by mouth 2 (two) times a day [facility] glimepiride 4 MG Oral Tablet GLIMEPIRIDE 12/03/2020 12:00:00 AM EST t ablet 180 TAKE ONE TABLET BY MOUTH TWICE A DAY TAKE ONE TABLET BY MOUT H TWICE A DAY SOLD: 12/03/2020 [facility] 80 mg 12/01/2020 12:00:00 AM EST tablet 90 TAKE ONE TABLET BY MOUTH EVERY DAY IN THE EVENING TAKE ONE TABLET BY MOUTH EVERY DAY IN THE EVENING SOLD : 12/01/2020 [facility] Simvastatin 80 MG Oral Tablet simvastatin (ZOCOR) 80 M G tablet simvastatin (ZOCOR) 80 MG tablet 12/01/2020 12:00:00 AM EST 80 mg Oral active Take 80 mg by mouth [facility] gabapentin 600 MG Oral Tablet gabapentin (NEURONTIN) 6 00 MG tablet gabapentin (NEURONTIN) 600 MG tablet 11/20/2020 12:00:00 AM EST 600 mg Oral active Take 600 mg by mouth 3 (three) times a day [facility] 600 mg 11/20/2020 12:00:00 AM EST tablet 270 TAKE ONE TABLET BY MOUTH THREE TIMES A DAY TAKE ONE TABLET BY MOUTH THREE TIMES A DAY SOLD: 11/20/2020 [facility] 3 ML liraglutide 6 MG/ML Pen Injector [Victoza] Victoz a 18 MG/3ML SOPN Victoza 18 MG/3ML SOPN 11/17/2020 12:00:00 AM EST act vero INJECT 1.8MG UNDER SKIN ONCE DAILY [facility] 1,250 mcg (50,000 unit) 11/10/2020 12:00:00 AM EST capsule 6 TAKE 1 CAPSULE BY MOUTH EVERY WEEK FOR 6 WEEKS TAKE 1 CAPSULE BY MOUTH EVERY WEEK FOR 6 WEEKS SOLD: 11/11/2020 [facility] 25465 UNT Oral Capsule vi tamin D, Ergocalciferol, 1.25 MG (90878 UT) CAPS vitamin D, Ergocalciferol, 1.25 MG (71077 UT) CAPS 12:00:00 AM EST aborted TAKE 1 CAPSULE B Y MOUTH EVERY WEEK FOR 6 WEEKS [facility] carvedilol 25 MG Oral Tablet CARVEDILOL 11/08/2020 12:00:00 AM EST tab let 60 TAKE 1 TABLET BY MOUTH TWICE A DAY TAKE 1 TABLET BY MOUTH TWICE A DAY SOLD: 12/07/2020 [facility] carvedilol 25 MG Oral Tablet CARVEDILOL 11/08/2020 12:00:00 AM EST tab let 60 TAKE 1 TABLET BY MOUTH TWICE A DAY TAKE 1 TABLET BY MOUTH TWICE A DAY SOLD: 04/03/2021 [facility] carvedilol 25 MG Oral Tablet CARVEDILOL 11/08/2020 12:00:00 AM EST tab let 60 TAKE 1 TABLET BY MOUTH TWICE A DAY TAKE 1 TABLET BY MOUTH TWICE A DAY SOLD: 03/07/2021 [facility] carvedilol 25 MG Oral Tablet CARVEDILOL 11/08/2020 12:00:00 AM EST tab let 60 TAKE 1 TABLET BY MOUTH TWICE A DAY TAKE 1 TABLET BY MOUTH TWICE A DAY SOLD: 11/08/2020 [facility] carvedilol 25 MG Oral Tablet CARVEDILOL 11/08/2020 12:00:00 AM EST tab let 60 TAKE 1 TABLET BY MOUTH TWICE A DAY TAKE 1 TABLET BY MOUTH TWICE A DAY SOLD: 02/05/2021 [facility] carvedilol 25 MG Oral Tablet CARVEDILOL 11/08/2020 12:00:00 AM EST tab let 60 TAKE 1 TABLET BY MOUTH TWICE A DAY TAKE 1 TABLET BY MOUTH TWICE A DAY SOLD: 01/04/2021 [facility] 100 unit/mL 10/31/2020 12:00:00 AM EST insulin pen 45 INJECT UNDER THE SKIN DIRECTED PER SLIDING SCALE MAXIMUM DAILY DOSE = 53 UNITS INJECT UNDER THE SKIN DIRECTED PER SLIDING SCALE MAXIMUM DAILY DOSE = 53 UNITS SOLD: 10/31/2020 [facility] 30 mg 10/16/2020 12:00:00 AM [...] TER & DRINK DAILY SOLD: 10/16/2020 [facility] 30 mg 10/16/2020 12:00:00 AM EST [...] MOUTH TWICE A DAY SOLD: 01/03/2021 [facility] Famotidine 40 MG Oral Tablet FAMOTIDINE 10/16/2020 [...] Insulin Lispro 100 UNT/ML Pen Injector [Humalog] Humarnaldo huff Kwikalicia 07/30/2020 12:00:00 AM EST active MEDENT ([facility]) 1 mg 07/19/2020 [...] VONN[facility] Zofran ODT 4 MG K 07/18/2020 12:00:00 AM EDT 1.0 {tablet_on_the_tongue_and_allow_to_dissolve} active Zofran ODT 4 MG eCW1 ([facility]) Zofran ODT 4 MG K 07/18/2020 12:00:00 AM EDT 1.0 {tablet_on_the_tongue_and_allow_to_dissolve} active Zofran ODT 4 MG eCW1 ([facility]) Zofran ODT 4 MG K 07/18/2020 12:00:00 AM EDT 1.0 {tablet_on_the_tongue_and_allow_to_dissolve} active Zofran ODT 4 MG eCW1 ([facility]) Zofran ODT 4 MG K 07/18/2020 12:00:00 AM EDT 1.0 {tablet_on_the_tongue_and_allow_to_dissolve} active Zofran ODT 4 MG eCW1 ([facility]) Zofran ODT 4 MG UNK 07/18/2020 12:00:00 AM EDT 1.0 {tablet_on_the_tongue_and_allow_to_dissolve} active Zofran ODT 4 MG eCW1 ([facility]) Zofran ODT 4 MG UNK 07/18/2020 12:00:00 AM EDT 1.0 {tablet_on_the_tongue_and_allow_to_dissolve} active Zofran ODT 4 MG eCW1 ([facility]) Zofran ODT 4 MG UNK 07/18/2020 12:00:00 AM EDT 1.0 {tablet_on_the_tongue_and_allow_to_dissolve} active Zofran ODT 4 MG eCW1 ([facility]) Zofran ODT 4 MG UNK 07/18/2020 12:00:00 AM EDT 1.0 {tablet_on_the_tongue_and_allow_to_dissolve} active Zofran ODT 4 MG eCW1 ([facility]) Zofran ODT 4 MG UNK 07/18/2020 12:00:00 AM EDT 1.0 {tablet_on_the_tongue_and_allow_to_dissolve} active Zofran ODT 4 MG eCW1 ([facility]) Zofran ODT 4 MG UNK 07/18/2020 12:00:00 AM EDT 1.0 {tablet_on_the_tongue_and_allow_to_dissolve} active Zofran ODT 4 MG eCW1 ([facility]) Zofran ODT 4 MG UNK 07/18/2020 12:00:00 AM EDT 1.0 {tablet_on_the_tongue_and_allow_to_dissolve} active Zofran ODT 4 MG eCW1 ([facility]) Zofran ODT 4 MG UNK 07/18/2020 12:00:00 AM EDT 1.0 {tablet_on_the_tongue_and_allow_to_dissolve} active Zofran ODT 4 MG eCW1 ([facility]) Zofran ODT 4 MG UNK 07/18/2020 12:00:00 AM EDT 1.0 {tablet_on_the_tongue_and_allow_to_dissolve} active Zofran ODT 4 MG eCW1 ([facility]) Zofran ODT 4 MG UNK 07/18/2020 12:00:00 AM EDT 1.0 {tablet_on_the_tongue_and_allow_to_dissolve} active Zofran ODT 4 MG eCW1 ([facility]) Zofran ODT 4 MG UNK 07/18/2020 12:00:00 AM EDT 1.0 {tablet_on_the_tongue_and_allow_to_dissolve} active Zofran ODT 4 MG eCW1 ([facility]) Zofran ODT 4 MG UNK 07/18/2020 12:00:00 AM EDT 1.0 {tablet_on_the_tongue_and_allow_to_dissolve} active Zofran ODT 4 MG eCW1 ([facility]) Zofran ODT 4 MG UNK 07/18/2020 12:00:00 AM EDT 1.0 {tablet_on_the_tongue_and_allow_to_dissolve} active Zofran ODT 4 MG eCW1 ([facility]) Zofran ODT 4 MG UNK 07/18/2020 12:00:00 AM EDT 1.0 {tablet_on_the_tongue_and_allow_to_dissolve} active Zofran ODT 4 MG eCW1 ([facility]) Zofran ODT 4 MG UNK 07/18/2020 12:00:00 AM EDT 1.0 {tablet_on_the_tongue_and_allow_to_dissolve} active Zofran ODT 4 MG eCW1 ([facility]) 4 mg 07/18/2020 12:00:00 AM EDT tablet,disintegrating 1 2 ALLOW 1 TABLET TO DISSOLVE ON THE TONGUE EVERY 8 HOURS NEEDED FOR NAUSEA AND VOMITING FOR 4 DAYS ALLOW 1 TABLET TO DISSOLVE ON THE TONGUE EVERY 8 HOURS NEEDED FOR NAUSEA AND VOMITING FOR 4 DAYS SOLD: 07/18/2020 [facility] Zofran ODT 4 MG UNK 07/18/2020 12:00:00 AM EDT 1.0 {tablet_on_the_tongue_and_allow_to_dissolve} active Zofran ODT 4 MG eCW1 ([facility]) Zofran ODT 4 MG UNK 07/18/2020 12:00:00 AM EDT 1.0 {tablet_on_the_tongue_and_allow_to_dissolve} active Zofran ODT 4 MG eCW1 ([facility]) Zofran ODT 4 MG UNK 07/18/2020 12:00:00 AM EDT 1.0 {tablet_on_the_tongue_and_allow_to_dissolve} active Zofran ODT 4 MG eCW1 ([facility]) 4 mg 07/11/2020 12:00:00 AM EDT [...] Golytely 07/10/2020 12:00:00 AM EDT active MEDENT ([facility], ) Magnesium Hydroxide 80 MG/ML Oral Suspension Milk Of Magnesi a 07/10/2020 12:00:00 AM EDT ORAL active M EDENT ([facility], ) 33 gauge 07/03/2020 12:00:00 [...] 07/02/2020 12:00:00 AM EDT activ e MEDENT ([facility] ) Fora Blood Glucose Test 07/02/2020 12:00:00 AM EDT active MEDENT ([facility] ) 200 unit/mL (3 mL) 06/26/2020 12:00:00 AM [...] EYES EVERY NIGHT SOLD: 06/01/2020 [facility] 30 mg 05/17/2020 12:00:00 AM EDT tablet 20 TAKE 1 TABLET BY MOUTH 5 TIMES PER WEEK, THURSDAY THROUGH THURSDAY TAKE 1 TABLET BY MOUTH 5 TIMES PER WEEK, THURSDAY THROUGH THURSDAY SOLD: 09/24/2020 [facility] 30 mg 05/17/2020 [...] BY MOUTH TWICE A DAY SOLD: 08/22/2020 [facility] carvedilol 25 MG Oral Tablet CARVEDILOL 04/30/2020 12:00:00 AM EDT tab let 60 TAKE 1 TABLET BY MOUTH TWICE A DAY TAKE 1 TABLET BY MOUTH TWICE A DAY SOLD: 05/30/2020 [facility] 29 gauge x 1/2" 04/16/2020 12:00:00 AM EDT needle 600 USE DIRECTED 6 TIMES A DAY MAXIMUM DAILY DOSE = 6 USE DIRECTED 6 TIMES A DAY MAXIMUM DA DENISE DOSE = 6 SOLD: 07/13/2020 [facility] 300 mg 03/15/2020 12:00:00 AM [...] TABLET BY MOUTH EVERY EVENING SOLD: 06/12/2020 [facility] Oxymetazoline HCl (NASAL SPRAY LONG ACTING NA) drug or medication Nasal aborted into each nostril [facility] 60 ACTUAT exenatide 0.01 MG/ACTUAT Pen I njector [Byetta] Exenatide (Byetta 10 MCG Pen) 10 MCG/0.04ML SOPN Exenatide (Byetta 10 MCG Pen) 10 MCG/0.04ML SOPN Subcutaneous aborted Inject unde r the skin [facility] Insurance Providers Payer name Policy type / Coverage type Policy ID Covered alliance party ID Covered alliance party's relationship to gunn Policy Gunn Plan Information MEDICARE [id number] SP [id number] MEDICARE [id number] Lida [id number] A79 MEDICARE [id number] Lida [id number] A79 MEDICARE A [id number] Self [id number] MEDICARE [id number] MEDICARE [id number] SP [id number] A MEDICAID [id number] SP [id number] [place] [id number] Self 1 [id number] [place] Medicare Primary [id number] Self 1 [id number] [place] Medicare Primary [id number] Self [id number] [place] Medicare Primary [id number] Self [id number] [place] Medicare Primary [id number] Self [id number] Medicare [place] Medicare Primary [id number] Self 1 [id number] [place] Medicare Primary [id number] Self 1 [id number] Medicare [place] Medicare Primary [id number] Self 1 [id number] Medicare [place] Medicare Primary [id number] Self 1 [id number] Medicare [place] Medicare Primary [id number] Self [id number] Medicaid [facility] Part B [id number] Self [id number] [place] Medicare Primary [id number] Self 1 [id number] Medicare [place] Medicare Primary [id number] Self 1 [id number] MEDICAID [id number] SP [id number] MEDICARE [id number] SP [id number] A MEDICAID [id number] SP [id number] MEDICAID [id number] SP [id number] MEDICAID M [id number] Self [id number] [facility] MEDICARE [id number] 1 [facility] MEDICARE [id number] Lida [id number] 99 [facility] [id number] SP [id number] [facility] MEDICARE [id number] 1 [facility] MEDICARE [id number] Lida [id number] MEDICAID [id number] Lida [id number] MEDICAID [id number] [facility] [id number] [facility] [id number] [facility]-Medicaid [id number] [facility] [id number] MEDICARE [id number] SP [id number] [facility] [id number] [facility]-Medicaid [id number] ANSI-Medicaid [id number] ANSI-Medicare Part B [id number] ANSI-Medicaid [id number] ANSI-Medicare Part B [id number] ANSI-Medicaid [id number] ANSI-Medicare Part B [id number] Medicaid [facility] Part B [id number] Self [id number] Medicare [place] Medicare Primary [id number] Self [id number] ANSI-Medicare Part B [id number] ANSI-Medicaid [id number] MEDICARE [id number] SP [id number] A ANSI-Medicare Part B [id number] ANSI-Medicaid [id number] ANSI-Medicare Part B [id number] ANSI-Medicaid [id number] ANSI-Medicare Part B [id number] ANSI-Medicaid [id number] ANSI-Medicaid [id number] ANSI-Medicare Part B [id number] ANSI-Medicare Part B [id number] ANSI-Medicaid [id number] ANSI-Medicare Part B [id number] ANSI-Medicaid [id number] ANSI-Medicaid [id number] ANSI-Medicare Part B [id number] ANSI-Medicare Part B [id number] ANSI-Medicaid [id number] ANSI-Medicaid [id number] ANSI-Medicare Part B [id number] Medicaid [facility] Part B [id number] Self [id number] Medicare [place] Medicare Primary [id number] Self [id number] ANSI-Medicare Part B [id number] ANSI-Medicaid [id number] Medicaid [facility] Part B [id number] Self [id number] Medicare [place] Medicare Primary [id number] Self [id number] ANSI-Medicare Part B [id number] ANSI-Medicaid [id number] ANSI-Medicare Part B [id number] ANSI-Medicaid [id number] ANSI-Medicare Part B [id number] ANSI-Medicaid [id number] ANSI-Medicaid [id number] ANSI-Medicare Part B [id number] ANSI-Medicaid [id number] ANSI-Medicare Part B [id number] ANSI-Medicare Part B [id number] ANSI-Medicaid [id number] SELF PAY ONLY 000 SP 000 ANSI-Medicare Part B [id number] ANSI-Medicaid [id number] ANSI-Medicare Part B [id number] ANSI-Medicaid [id number] ANSI-Medicaid [id number] ANSI-Medicare Part B [id number] ANS-Medicare Part B [id number] ANSI-Medicaid [id number] ANS-Medicare Part B [id number] ANS-Medicaid [id number] [facility]-Medicare Part B [id number] ANS-Medicaid [id number] Medicaid [facility] Part B [id number] Self [id number] [place] [id number] Self [id number] MEDICARE C [id number] S [id number] A Medicaid [facility] Part B [id number] Self [id number] [place] Medicare Primary [id number] Self [id number] [place] MEDICARE PART B [id number] S [id number] Medicaid [facility] Part B [id number] Self [id number] [place] Medicare Primary [id number] Self [id number] MEDICAID -I/P [id number] MEDICARE PART A -I/P [id number] 18 [id number] [facility] C [id number] S [id number] MEDICAID -O/P EMERGENCY ROOM [id number] 18 [id number] MEDICARE PART A -O/P [id number] 18 [id number] MEDICAID-O/P UNAVAILABLE UNAVA ILABLE Medicaid [facility] Part B [id number] [id number] Self [id number] Medicare [place]/[facility] Medicare Primary [id number] Self [id number] MEDICAID [id number] SP [id number] MEDICARE - [place] MCR [id number] S [id number] [facility] MEDICAID [id number] SP [id number] U [id number] [id number] [id number] [facility] [id number] SP [id number] [place] [id number] SP [id number] [facility] [id number] SP [id number] MEDICARE [id number] SP [id number] [facility](MCAID) O [id number] S [id number] MEDICARE C [id number] S [id number] MEDICAID M [id number] S [id number] MEDICAID [id number] SP [id number] ANSI-Medicaid [id number] ANSI-Medicare Part B [id number] ANSI-Medicare Part B [id number] ANSI-Medicaid [id number] ANSI-Medicaid [id number] ANSI-Medicare Part B [id number] ANSI-Medicare Part B [id number] ANSI-Medicaid [id number] ANSI-Medicare Part B [id number] ANSI-Medicaid [id number] ANSI-Medicare Part B [id number] ANSI-Medicaid [id number] ANSI-Medicare Part B [id number] ANSI-Medicaid [id number] ANSI-Medicare Part B [id number] ANSI-Medicaid [id number] ANSI-Medicare Part B [id number] ANSI-Medicaid [id number] ANSI-Medicaid [id number] ANSI-Medicare Part B [id number] ANSI-Medicaid [id number] ANSI-Medicare Part B [id number] Problems, Conditions, and Diagnoses Code Display Name Description Problem Type Effective Dates Data Source(s) Z01.818 Encounter for other preprocedural examin ation Encounter for other preprocedural examin Diagnosis 04/09/2021 07:57:37 AM EDT [facility] E78.2 Mixed hyperlipidemia Mixed hyperlipidemia Diagnosis 04/09/2021 07:57:37 AM EDT [facility] I51.7 Cardiomegaly Cardiomegaly Diagnosis 04/09/2021 07:57:37 A M EDT [facility] I10 Essential (primary) hypertension Essential (primary) h ypertension Diagnosis 03/28/2021 06:59:00 AM EDT [facility] 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 Diagnosis 03/28/2021 06:59:00 AM EDT [facility] N18.30 Chronic kidney disease, stage 3 unspecif ied Chronic kidney disease, stage 3 unspecif Diagnosis 03/28/2021 06:59:00 AM EDT [facility] E11.22 Type 2 diabetes mellitus with diabetic c hronic kidney disease Type 2 diabetes mellitus with diabetic c Diagnosis 03/28/2021 06:59:00 AM EDT [facility] R07.89 Other chest pain Other chest pain Diagnosis 03/28/2021 06 :59:00 AM EDT [facility] K21.9 Gastro-esophageal reflux disease without esophagitis Gastro-esophageal reflux disease without Diagnosis 01/28/2021 10:21:00 AM EDT [facility] U07.1 COVID-19 COVID-19 Diagnosis 01/23/2021 08:29:04 AM ED T [facility] J31.0 [id number] Rhinitis, unspecified type Problem 12:00:00 AM EDT eCW1 ([facility]) G43.019 [id number] Intractable migraine without aura and without status migrainosus Problem 03/19/2021 12:00:00 AM EDT eCW1 ([facility]) Z01.818 Preoperative clearance Preoperative clearance [id number] 01/24/2021 12:00:00 AM EDT [facility] E11.22 Type 2 diabetes mellitus wit h chronic kidney disease, with long-term current use of insulin Type 2 diabetes mellitus with chronic ki dney disease, with long-term current use of insulin [id number] 01/24/2021 12:00:00 AM EDT [facility] I10 Essential hypertension Essential hypertension [id number] 01/24/2021 12:00:00 AM EDT [facility] E78.2 Mixed hyperlipidemia Mixed hyperlipidemia [id number] 01/24/2021 12:00:00 AM EDT [facility] R07.89 Chest discomfort Chest discomfort [id number] 01/24/2021 12 :00:00 AM EDT [facility] I51.7 Cardiomegaly Cardiomegaly [id number] 01/20/2021 12:00:00 A M EDT [facility] H40.9 Glaucoma Glaucoma of both eyes, unspecified glauco ma type Problem 11/20/2020 12:00:00 AM EST eCW1 ([facility]) E66.01 [id number] Morbid (severe) obesity due to excess c alories Problem 10/02/2020 12:00:00 AM EST eCW1 ([facility]) E78.2 [id number] Mixed hyperlipidemia Problem 08/21/2020 12:0 0:00 AM EST eCW1 ([facility]) Surgeries/Procedures Procedure Description Date Indications Data Source(s) ARTHROCENTESIS ASPIR&/INJECTION MAJOR JT/BURSA 021 12:00:00 AM EDT MEDENT ([facility]) MRI BRAIN BRAIN STEM W/O CONTRAST MATERIAL 04/05/2021 12:00:00 AM EDT MEDENT ([facility]) MRI BRAIN BRAIN STEM W/O CONTRAST MATERIAL 04/05/2021 12:00:00 AM EDT MED[facility] ([facility] ) TROPONIN QUANTITATIVE <td>TROPONIN I</td><td>Routine</td><td>03/21/2021</td><td></td><td> </td> 03/21/2021 12:00:00 AM EDT [facility] PROTHROMBIN TIME <td>PROTIME- INR</td><td>Routine</td><td>03/20/2021</td><td></td><td> </td> 03/20/2021 12:00:00 AM EDT [facility] BLOOD COUNT COMPLETE AUTO&AUTO DIFRNTL WBC COUNT <td>C BC AND DIFFERENTIAL</td><td>Routine</td><td>03/20/2021</td><td></td><td> </td> 03/20/2021 12:00:00 AM EDT [facility] PROTHROMBIN TIME <td>POCT INR</td><td>Routine</td><td>03/20/2021</td><td></td><td> </td> 03/20/2021 12:00:00 AM EDT [facility] HEPATIC FUNCTION PANEL <td>HEPATIC FUNCTION PANEL</td><td>Routine</td><td>03/20/2021</td><td></td><td> </td> 03/20/2021 12:00:00 AM EDT [facility] BASIC METABOLIC PANEL CALCIUM TOTAL <td>BASIC METABOLI C PANEL</td><td>Routine</td><td>03/20/2021</td><td></td><td> </td> 03/20/2021 12:00:00 AM EDT [facility] POCT AMB EKG <td>POCT AMB EKG</td><td>Rou julia</td><td>03/12/2021 12:37 PM EDT</td><td> Chest discomfort</td><td> </td> 03/12/2021 12:37:00 PM EDT Chest discomfort [facility] Chest discomfort OFFICE OUTPATIENT VISIT 15 MINUTES 02/14/2021 12:00:00 AM EDT MEDENT ([facility]) UPPER NDSC BIOPSY SINGLE/MULTIPLE 01/28/2021 12:00:00 AM EDT MED[facility] ([facility]) POCT AMB EKG <td>POCT AMB EKG</td><td>Rou julia</td><td>01/24/2021 3:46 PM EDT</td><td> Cardiomegaly</td><td> </td> 01/24/2021 03:46:00 PM EDT Cardiomegaly [facility] Cardiomegaly ARTHROCENTESIS ASPIR&/INJECTION MAJOR JT/BURSA 021 12:00:00 AM EDT [facility] ([facility]) Diabetic Foot Exam 12/04/2020 12:00:00 AM EST [facility] ([facility]) BLOOD COUNT COMPLETE AUTO&AUTO DIFRNTL WBC COUNT <td>C BC AND DIFFERENTIAL</td><td>Routine</td><td>11/24/2020</td><td></td><td> </td> 11/24/2020 12:00:00 AM EST [facility] THYROID STIMULATING HORMONE TSH <td>TSH</td><td>Routine</td><td>11/24/2020</td><td></td><td> </td> 11/24/2020 12:00:00 AM EST [facility] BASIC METABOLIC PANEL CALCIUM TOTAL <td>BASIC METABOLI C PANEL</td><td>Routine</td><td>11/24/2020</td><td></td><td> </td> 11/24/2020 12:00:00 AM EST [facility] HEMOGLOBIN GLYCOSYLATED A1C <td>HEMOGLOBIN A1C</td><td>Routine</td><td>11/20/2020</td><td></td><td> </td> 11/20/2020 12:00:00 AM EST [facility] LIPID PANEL <td>LIPID PANEL</td><td>Rout ine</td><td>11/20/2020</td><td></td><td> </td> 11/20/2020 12:00:00 AM [facility] ARTHROCENTESIS ASPIR&/INJECTION MAJOR JT/BURSA 020 12:00:00 AM EST [facility] ([facility] ) RADIOLOGIC EXAM KNEE COMPLETE 4/MORE VIEWS 08/17/2020 12:00:00 AM EST [facility] ([facility] ) RADIOLOGIC EXAM KNEE COMPLETE 4/MORE VIEWS 08/17/2020 12:00:00 AM EST [facility] ([facility] ) RADIOLOGIC EXAM KNEE COMPLETE 4/MORE VIEWS 08/17/2020 12:00:00 AM EST [facility] ([facility] ) RADIOLOGIC EXAM KNEE COMPLETE 4/MORE VIEWS 08/17/2020 12:00:00 AM EST [facility] ([facility] ) TSTG ANS FUNCJ CARDIOVAGAL INNERVAJ PARASYMP 0 12:00:00 AM EDT MED[facility] ([facility] ) TSTG ANS FUNCJ CARDIOVAGAL INNERVAJ PARASYMP 0 12:00:00 AM EDT [facility] ([facility] ) TESTING AUTONOMIC NERVOUS SYSTEM FUNCTION 07/20/2020 1 2:00:00 AM EDT [facility] ([facility] TESTING AUTONOMIC NERVOUS SYSTEM FUNCTION 07/20/2020 1 2:00:00 AM EDT MED[facility] ([facility]) PNEUMOCOCCAL CONJ VACCINE 13 VALENT IM 06/27/2020 12:0 0:00 AM EDT eCW1 ([facility]) Immunization: Flublok Quadrivalent (18 years & older) 0.5mL IM (Influenza) 06/27/2020 12:00:00 AM EDT eCW1 ([facility]) RADEX SPINE LUMBOSACRAL 2/3 VIEWS 06/08/2020 12:00:00 AM EDT [facility] ([facility]) Results ID Date Data Source [id number] 07/23/2021 07:38:00 AM EDT [facility] Name Value Range Interpretation Code Description Data Allegra rce(s) Supporting Document(s) SARS coronavirus 2 RNA [Presence] in Res piratory specimen by MARLEEN with probe detection NEGATIVE [facility] This lab was ordered by [facility] a nd reported by [facility]. ID Date Data Source [id number] 03/28/2021 08:24:46 AM EDT [facility] Name Value Range Interpretation Code Description Data Allegra rce(s) Supporting Document(s) EKG [facility] [id number] [file] [id number] ID Date Data Source [id number] 03/28/2021 07:53:15 AM EDT [facility] [place] [facility] Name Value Range Interpretation Code Description Data Allegra rce(s) Supporting Document(s) POC NOVA GLU 252 mg/dL (70-99) H [facility] [place] [facility] [place] PERFORMED BY [facility] ID Date Data Source [id number] 03/13/2021 07:25:00 AM EDT [facility] FASTING: UNKNOWNReceived: 03/13/2021 at 06:28:00 QPT: [facility], [address], [address], [place], [address], Nito Smallwood MD Received: 03/13/2021 at 06:28:00 QPT : [facility], [address], [address], [place], [address], Nito Smallwood MD Name Value Range Interpretation [...] is approximately 13% higher for peopleidentified as -Jamaican. eGFR NON-AFR. PAKISTANI 44 mL/min/1.73m2 > OR = 60 Below [...] normal [facility] ID Date Data Source [id number] 03/13/2021 07:25:00 AM EDT [facility] FASTING: UNKNOWNReceived: 03/13/2021 at 06:28:00 QPT: [facility], [address], [address] [place], [address], Nito Smallwood MD Received: 03/13/2021 at 06:28:00 QPT : [facility], [address], [address] [place], [address], Nito Smallwood MD Name Value Range Interpretation [...] copy faxed has been acknowledged. Queued to: [id number] ID Date Data Source [id number] 03/07/2021 09:19:00 AM EDT [facility] ([facility]) Name Value Range Interpretation Code Description Data Allegra rce(s) Supporting Document(s) Hemoglobin A1c/Hemoglobin.total in Blood 8.8 [facility] ([facility]) Glucose [Mass/volume] in Serum or Plasma 233 [facility] ([facility]) ID Date Data Source [id number] 02/04/2021 05:30:48 PM EDT Lab [facility]ORATORY [address] [address]Vii# Surgical Pathology ReportPatient Name: ORLANDO PERALESB: 5Accession #:[id number]) ReceivedA: Antrum bxB: Gastric body bxClinical Diagnosis [...] 02/04/2021Electronically Signed Out By Christiano Em MD [facility] [place] [id number] component performed at [facility], Histopathology, [address] [place] [address], [phone].Reported at [facility], [address] [place] [address], [phone]. This report may includeimmunohistochemical or in-situ hybridization results. Testing wasdeveloped and the performance characteristics determined by [facility] as required by CLIA '88. The FDA hasdetermined that approval for specific use is not necessary for clinicaluse. The quality of Hematoxylin and Eosin stains and as applicable, forall immunohistochemical and/or special stains, including positive andnegative controls, were reviewed and considered appropriate.ICD codes K21.9CPT codesA: 63805I, 86462fW: 25788P Name Value Range Interpretation Code Description Data Allegra rce(s) Supporting Document(s) ID Date Data Source [id number] 01/28/2021 11:13:59 AM EDT [facility] INFORMATIONPatient MRN Name Date of Age Gend*PT [id number] Cecily Perales 1955 65 years F OPPT Location Admission Date/Time [facility]21 --- Bairon Melgar MD([id number]) EPI ID [facility] Admitting Provider [id number] Bairon Melgar MD([id number])Endoscopic Gastroduodenoscopy Procedure NotePatient: Cecily EffnerSurgery Date: January 28urgeon(s):JOSE Robersonre-Operative Diagnosis:GERD (gastroesophageal reflux [...] rce(s) Supporting Document(s) ID Date Data Source [id number] 01/28/2021 10:45:52 AM EDT [facility] INFORMATIONPatient MRN Name Date of Age Gend*PT [id number] Cecily Perales 1955 65 years F OPPT Location Admission Date/Time Visit ID [facility]/28[facility]21 1021 --- Bairon Melgar MD([id number]) EPI ID [facility] Admitting Provider [id number] Bairon Melgar MD([id number])Pre-Procedure History and Physical:Past Medical History:Diagnosis Date CRI [...] rce(s) Supporting Document(s) ID Date Data Source [id number] 01/28/2021 10:43:38 AM EDT [facility] Name Value Range Interpretation Code Description Data Allegra rce(s) Supporting Document(s) POC NOVA GLU 133 mg/dL (70-99) H Lab [facility] PERFORMED BY [facility] ID Date Data Source [id number] 01/23/2021 08:35:00 AM EDT [facility] Name Value Range Interpretation Code Description Data Allegra rce(s) Supporting Document(s) SARS coronavirus 2 RNA Not Detected [facility] [place] This lab was ordered by [facility] and reported by [facility]. ID Date Data Source [id number] 01/24/2021 02:10:17 PM EDT [facility] Name Value Range Interpretation Code Description Data Allegra rce(s) Supporting Document(s) SARS-COV-2 MARLEEN Lab [facility] Not DetectedReference range: Not Detecte d This nucleic acid amplification test was developed and its performance characteristics determined by [employer]. Nucleic acid amplification tests include RT-PCR and [...] detected) result in this assay. Performed At: [facility] [address] [place], [place] [id number] Miesha Hester PhD Ph:[phone] ID Date Data Source [id number] 10/23/2020 02:00:00 PM EST [facility] Name Value Range Interpretation Code Description Data Allegra rce(s) Supporting Document(s) SARS coronavirus 2 RNA Not Detected [facility] [place] This lab was ordered by [facility] and reported by [facility]. ID Date Data Source [id number] 07/31/2020 08:06:00 AM EST [facility] ([facility]) Name Value Range Interpretation Code Description Data Allegra rce(s) Supporting Document(s) Surgical pathology study Laboratory test result [facility] ([facility]) FINAL DIAGNOSIS A-Descending colon polyp, polypectomy: Tubular adenoma. B-Colon, random biopsy: Colonic mucosa without significant pathology. 08/01/2020 - 135 CLINICAL DIAGNOSIS History colon polyps 07/31/2020 - 152 GROSS DIAGNOSIS A - Received in formalin labeled "descending colon polyp" consists of a fragment of tissue, 0.1 x 0.1 x 0.1 cm. All in one. B - Received in formalin labeled "random colon biopsy" and consists of a fragment of tissue, 0.2 x 0.1 x 0.1 cm. All in one. -OA 07/31/2020 - 1520 Signed RAMNO DUKE MD 08/01/2020 1353 ID Date Data Source [id number] 07/31/2020 07:09:00 AM EST [facility] ([facility]) Name Value Range Interpretation Code Description Data Allegra rce(s) Supporting Document(s) Glucose [Mass/volume] in Capillary blood by Glucometer 220 mg/dL 80-115 Above high normal [facility] ([facility]) ID Date Data Source [id number] 07/26/2020 10:25:00 AM EDT [facility] Name Value Range Interpretation Code Description Data Allegra rce(s) Supporting Document(s) SARS coronavirus 2 RNA [facility] This lab was ordered by [facility] and reported by [facility]. ID Date Data Source [id number] 06/28/2020 10:00:00 PM EDT [facility] ([facility]) Name Value Range Interpretation Code Description Data Allegra rce(s) Supporting Document(s) Elastase.pancreatic [Mass/mass] in Stool Laboratory test result Normal (applies to non-numeric results) [facility] ([facility]) <content>Result Units: ug Elast./g</cont ent>
<content>Severe Pancreatic Insufficiency: <100</content>
<content>Moderate Pancreatic Insufficiency: 100 - 200</content>
<content>Normal: >200</content>
<content>Performed at: - [facility]</content>
<content>[address] [place], [place] [id number]</content>
<content>[employer]: Dat Flores MD, Phone: [phone]</content>
<content></content> ID Date Data Source [id number] 06/27/2020 02:17:00 PM EDT [facility] ([facility] ) Name Value Range Interpretation Code Description Data Allegra rce(s) Supporting Document(s) Tissue transglutaminase IgA Ab [Units/volume] in Serum 3 U/mL 0-3 Normal (applies to non-numeric results) [facility] ([facility]) Negative 0 - 3 Weak Positive 4 - 10 Positive >10 . Tissue Transglutaminase (tTG) has been identified as the endomysial antigen. Studies have demonstr- ated that endomysial IgA antibodies have over 99% specificity for gluten sensitive enteropathy. Performed at: - [facility] [id number] [employer]: Keiry Munguia MD, Phone: [phone] ID Date Data Source [id number] 06/05/2020 04:15:00 PM EDT [facility] ([facility]) Name Value Range Interpretation Code Description Data Allegra rce(s) Supporting Document(s) Glucose [Mass/volume] in Serum or Plasma 256 [facility] ([facility]) Hemoglobin A1c/Hemoglobin.total in Blood 9.5 [facility] ([facility]) Procedure Social History Code Duration Value Status Description Data Source(s ) Smoking 04/30/2021 12:00:00 AM EDT Never Smoker completed Never S lizbet eCW1 ([facility]) Alcohol intake 04/09/2021 12:00:00 AM EDT Lifetime non-drinker (finding) completed Lifetime non-drinker (finding) [facility] Smoking 04/02/2021 12:00:00 AM EDT Never Smoker completed Never S lizbet eCW1 ([facility]) Smoking 04/02/2021 12:00:00 AM EDT Never Smoker completed Never S moker eCW1 ([facility]) Smoking 04/02/2021 12:00:00 AM EDT Never Smoker completed Never S moker eCW1 ([facility]) Smoking 04/02/2021 12:00:00 AM EDT Never Smoker completed Never S moker eCW1 ([facility]) Smoking 03/19/2021 12:00:00 AM EDT Never Smoker completed Never S moker eCW1 ([facility]) Alcohol intake 03/12/2021 12:00:00 AM EDT Lifetime non-drinker (finding) completed Lifetime non-drinker (finding) [facility] Tobacco use and exposure 01/24/2021 12:00:00 AM EDT Never used co mpleted Never used [facility] Smoking 01/24/2021 12:00:00 AM EDT Never smoker completed Never s moker [facility] Alcohol intake 01/24/2021 12:00:00 AM EDT Lifetime non-drinker (finding) completed Lifetime non-drinker (finding) [facility] Smoking 12/04/2020 12:00:00 AM EST Patient has never smoked co mpleted Patient has never smoked [facility] ([facility]) Smoking 11/20/2020 12:00:00 AM EST Never Smoker completed Never S moker eCW1 ([facility]) Smoking 11/20/2020 12:00:00 AM EST Never Smoker completed Never S moker eCW1 ([facility]) Smoking 08/21/2020 12:00:00 AM EST Never Smoker completed Never S moker eCW1 ([facility]) Smoking 08/21/2020 12:00:00 AM EST Never Smoker completed Never S moker eCW1 ([facility]) Smoking 08/21/2020 12:00:00 AM EST Never Smoker completed Never S moker eCW1 ([facility]) Smoking 08/21/2020 12:00:00 AM EST Never Smoker completed Never S moker eCW1 ([facility]) Smoking 08/21/2020 12:00:00 AM EST Never Smoker completed Never S moker eCW1 ([facility]) Smoking 08/21/2020 12:00:00 AM EST Never Smoker completed Never S moker eCW1 ([facility]) Smoking 08/21/2020 12:00:00 AM EST Never Smoker completed Never S moker eCW1 ([facility]) Smoking 08/21/2020 12:00:00 AM EST Never Smoker completed Never S moker eCW1 ([facility]) Smoking 08/21/2020 12:00:00 AM EST Never Smoker completed Never S moker eCW1 ([facility]) Smoking 08/21/2020 12:00:00 AM EST Never Smoker completed Never S moker eCW1 ([facility]) Smoking 07/31/2020 12:00:00 AM EST Never Smoker completed Never S moker eCW1 ([facility]) Smoking 07/18/2020 12:00:00 AM EDT Never Smoker completed Never S moker eCW1 ([facility]) Smoking 07/18/2020 12:00:00 AM EDT Never Smoker completed Never S moker eCW1 ([facility]) Smoking 07/18/2020 12:00:00 AM EDT Never Smoker completed Never S moker eCW1 ([facility]) Smoking 06/27/2020 12:00:00 AM EDT Never Smoker completed Never S moker eCW1 ([facility]) Vital Signs ID Date Data Source UNK Name Value Range Interpretation Code Description Data Source(s) Body height 65 [in_i] 65 [in_i] eCW1 ([facility] Body weight 333.4 [lb_av] 333.4 [lb_av] eCW1 ([facility]) Heart rate 100 /min 100 /min eCW1 ([facility]) Body mass index (BMI) [Ratio] 55.47 kg/m2 55.47 kg/m2 eCW1 ([facility]) Respiratory rate 18 /min 18 /min eCW1 ([facility]) Body temperature 95.6 [degF] 95.6 [degF] eCW1 ( [facility]) Systolic blood pressure 140 mm[Hg] 140 mm[Hg] e CW1 ([facility]) Diastolic blood pressure 80 mm[Hg] 80 mm[Hg] eCW1 ([facility]) Systolic blood pressure 138 mm[Hg] 138 mm[Hg] [facility] Diastolic blood pressure 82 mm[Hg] 82 mm[Hg] [facility] Heart rate 84 /min 84 /min [facility] Body height 165.1 cm 165.1 cm [facility] Body weight 151.501 kg 151.501 kg [facility] Body mass index (BMI) [Ratio] 55.58 kg/m2 55.58 kg/m2 [facility] Oxygen saturation in Arterial blood by Pulse oximetry 92 % 92 % [facility] Body weight 334 [lb_av] 334 [lb_av] eCW1 ([facility]) Body height 65 [in_i] 65 [in_i] eCW1 ([facility]) Body mass index (BMI) [Ratio] 55.57 kg/m2 55.57 kg/m2 W1 ([facility]) Heart rate 92 /min 92 /min eCW1 ([facility]) Respiratory rate 18 /min 18 /min eCW1 ([facility]) Body temperature 97.2 [degF] 97.2 [degF] eCW1 ( [facility]) Systolic blood pressure 126 mm[Hg] 126 mm[Hg] e CW1 ([facility]) Diastolic blood pressure 80 mm[Hg] 80 mm[Hg] eCW1 ([facility]) Body weight 333 [lb_av] 333 [lb_av] eCW1 ([facility]) Body height 65 [in_i] 65 [in_i] eCW1 ([facility] Body mass index (BMI) [Ratio] 55.41 kg/m2 55.41 kg/m2 [facility] ([facility]) Heart rate 96 /min 96 /min eCW1 ([facility]) Respiratory rate 18 /min 18 /min eCW1 ([facility]) Body temperature 96.9 [degF] 96.9 [degF] eCW1 ( [facility]) Systolic blood pressure 138 mm[Hg] 138 mm[Hg] e CW1 ([facility]) Diastolic blood pressure 84 mm[Hg] 84 mm[Hg] eCW1 ([facility]) Systolic blood pressure 126 mm[Hg] 126 mm[Hg] [facility] Diastolic blood pressure 90 mm[Hg] 90 mm[Hg] [facility] Heart rate 85 /min 85 /min [facility] Body height 165.1 cm 165.1 cm [facility] Body weight 152.409 kg 152.409 kg [facility] Body mass index (BMI) [Ratio] 55.91 kg/m2 55.91 kg/m2 [facility] Oxygen saturation in Arterial blood by Pulse oximetry 93 % 93 % [facility] Heart rate 90 /min 90 /min [facility] ([facility]) Systolic blood pressure 142 mm[Hg] 142 mm[Hg] M [facility] ([facility]) Diastolic blood pressure 86 mm[Hg] 86 mm[Hg] [facility] ([facility]) Body temperature 95.9 [degF] 95.9 [degF] MEDENT ([facility]) Body height 66.4 [in_i] 66.4 [in_i] MEDENT ([facility]) 5'6.40" Body weight 333.12 [lb_av] 333.12 [lb_av] MEDEN T ([facility]) Body mass index (BMI) [Ratio] 53.1 kg/m2 53.1 k g/m2 [facility] ([facility]) Oxygen saturation in Arterial blood by Pulse oximetry 95 % 95 % [facility] ([facility]) Respiratory rate 12 /min 12 /min MED[facility] ( [facility]) Body height 66 [in_i] 66 [in_i] MEDENT ([facility]) 5'6" Body weight 325.00 [lb_av] 325.00 [lb_av] MEDEN T ([facility] ) Body mass index (BMI) [Ratio] 52.5 kg/m2 52.5 k g/m2 MED[facility] ([facility] [place] body weight 130 [lb_av] 130 [lb_av] MEDEN T ([facility] ) Systolic blood pressure 142 mm[Hg] 142 mm[Hg] [facility] Diastolic blood pressure 88 mm[Hg] 88 mm[Hg] [facility] Heart rate 78 /min 78 /min [facility] Body height 167.6 cm 167.6 cm [facility] Body weight 154.677 kg 154.677 kg [facility] Body mass index (BMI) [Ratio] 55.04 kg/m2 55.04 kg/m2 [facility] Oxygen saturation in Arterial blood by Pulse oximetry 95 % 95 % [facility] Heart rate 80 /min 80 /min [facility] ([facility] ) Body temperature 957.0 [degF] 957.0 [degF] MEDE NT ([facility] ) Body height 66.4 [in_i] 66.4 [in_i] MEDENT ([facility] ) 5'6.40" Body weight 339.00 [lb_av] 339.00 [lb_av] MEDEN T ([facility] ) Body mass index (BMI) [Ratio] 54.1 kg/m2 54.1 k g/m2 MED[facility] ([facility] ) Oxygen saturation in Arterial blood by Pulse oximetry 98 % 98 % [facility] ([facility] ) Systolic blood pressure 136 mm[Hg] 136 mm[Hg] M EDENT ([facility]) Diastolic blood pressure 84 mm[Hg] 84 mm[Hg] [facility] ([facility] Body mass index (BMI) [Ratio] 52.5 kg/m2 52.5 k g/m2 [facility] ([facility] [place] body weight 130 [lb_av] 130 [lb_av] MEDEN T ([facility] ) Body height 66 [in_i] 66 [in_i] MEDENT ([facility]) 5'6" Body weight 325.00 [lb_av] 325.00 [lb_av] MEDEN T ([facility]) Respiratory rate 12 /min 12 /min MED[facility] ( [facility] Body weight 340 [lb_av] 340 [lb_av] eCW1 ([facility]) Body height 65 [in_i] 65 [in_i] eCW1 ([facility]) Body mass index (BMI) [Ratio] 56.57 kg/m2 56.57 kg/m2 eCW1 ([facility]) Heart rate 111 /min 111 /min eCW1 ([facility]) Respiratory rate 20 /min 20 /min eCW1 ([facility]) Body temperature 96.5 [degF] 96.5 [degF] eCW1 ( [facility]) Systolic blood pressure 130 mm[Hg] 130 mm[Hg] e CW1 ([facility]) Diastolic blood pressure 80 mm[Hg] 80 mm[Hg] eCW1 ([facility]) Body weight 340 [lb_av] 340 [lb_av] eCW1 ([facility]) Body height 65 [in_i] 65 [in_i] eCW1 ([facility]) Body mass index (BMI) [Ratio] 56.57 kg/m2 56.57 kg/m2 eCW1 ([facility]) Heart rate 116 /min 116 /min eCW1 ([facility]) Respiratory rate 18 /min 18 /min eCW1 ([facility]) Body temperature 96.4 [degF] 96.4 [degF] eCW1 ( [facility]) Systolic blood pressure 128 mm[Hg] 128 mm[Hg] e CW1 ([facility]) Diastolic blood pressure 80 mm[Hg] 80 mm[Hg] eCW1 ([facility]) Body height 65 [in_i] 65 [in_i] eCW1 ([facility]) Body weight 345 [lb_av] 345 [lb_av] eCW1 ([facility]) Body temperature 97.7 [degF] 97.7 [degF] eCW1 ( [facility]) Systolic blood pressure 152 mm[Hg] 152 mm[Hg] e CW1 ([facility]) Diastolic blood pressure 90 mm[Hg] 90 mm[Hg] eCW1 ([facility]) Body mass index (BMI) [Ratio] 57.40 kg/m2 57.40 kg/m2 eCW1 ([facility]) Heart rate 118 /min 118 /min eCW1 ([facility]) Respiratory rate 18 /min 18 /min eCW1 ([facility]) Body mass index (BMI) [Ratio] 54.1 kg/m2 54.1 k g/m2 [facility] ([facility]) Diastolic blood pressure 84 mm[Hg] 84 mm[Hg] [facility] ([facility]) Heart rate 71 /min 71 /min [facility] ([facility]) Systolic blood pressure 126 mm[Hg] 126 mm[Hg] M EDENT ([facility]) Body height 66.4 [in_i] 66.4 [in_i] MEDENT ([facility]) 5'6.40" Body weight 339.25 [lb_av] 339.25 [lb_av] MEDEN T ([facility]) Oxygen saturation in Arterial blood by Pulse oximetry 96 % 96 % [facility] ([facility]) Patient Treatment Plan of Care Planned Activity Planned Date Details Description Data Source (s) Flonase Allergy Relief 50 MCG/ACT 04/02/2021 12:00:00 AM EDT eCW1 ([facility]) Flonase Allergy Relief 50 MCG/ACT 04/02/2021 12:00:00 AM EDT eCW1 ([facility]) fluticasone (FLONASE) 50 MCG/ACT nasal spray 04/02/2021 12:00:00 AM EDT [facility] Flonase Allergy Relief 50 MCG/ACT 04/02/2021 12:00:00 AM EDT eCW1 ([facility]) Flonase Allergy Relief 50 MCG/ACT 04/02/2021 12:00:00 AM EDT eCW1 ([facility]) Amitriptyline Hydrochloride 10 MG Oral Tablet 03/19/2021 12:00:00 A M EDT eCW1 ([facility]) clopidogrel 75 MG Oral Tablet 03/12/2021 12:00:00 AM EDT [facility] Cholecalciferol 1000 UNT Oral Tablet 01/15/2021 12:00:00 AM EDT [facility] latanoprost 0.05 MG/ML Ophthalmic Solution 01/10/2021 12:00:00 AM E DT [facility] carvedilol 25 MG Oral Tablet 01/04/2021 12:00:00 AM EDT [facility] Magnesium Oxide 400 MG Oral Tablet 01/03/2021 12:00:00 AM EDT [facility] 3 ML Insulin Lispro 100 UNT/ML Pen Injector [Humalog] 01/02/2021 12:00:00 AM EDT [facility] cinacalcet 30 MG Oral Tablet 01/02/2021 12:00:00 AM EDT [facility] glimepiride 4 MG Oral Tablet 12/03/2020 12:00:00 AM EST [facility] Simvastatin 80 MG Oral Tablet 12/01/2020 12:00:00 AM EST [facility] gabapentin 600 MG Oral Tablet 11/20/2020 12:00:00 AM EST [facility] 3 ML liraglutide 6 MG/ML Pen Injector [Victoza] 11/17/2020 12:00:00 AM EST [facility] Ergocalciferol 43471 UNT Oral Capsule 11/10/2020 12:00:00 AM EST [facility] Zofran ODT 4 MG 07/18/2020 12:00:00 AM EDT eCW1 ([facility]) Zofran ODT 4 MG 07/18/2020 12:00:00 AM EDT eCW1 ([facility]) Zofran ODT 4 MG 07/18/2020 12:00:00 AM EDT eCW1 ([facility]) Oxymetazoline HCl (NASAL SPRAY LONG ACTING NA) [facility] 60 ACTUAT exenatide 0.01 MG/ACTUAT Pen Injector [Byetta] [facility]
--- OUTSIDE RECORDS SUMMARY | 2021-07-26 10:14 | CCD ---
Author Author [facility] Organization [facility] Address Unknown Phone Unavailable Care Team Providers Care Wood Scaler Name Role Phone Justyna Henley PA-C Unavailable Unavailabl e Justyna Henley PA-C Unavailable Unavailabl e Justyna Henley PA-C Unavailable Unavailabl e Justyna Henley PA-C Unavailable Unavailabl e Justyna Henley, PA-C Unavailable Unavailabl e [facility], PA-C Unavailable Unavailabl e [facility], [facility], PA-C Unavailable Unavailabl e [facility], [facility], PA-C Unavailable Unavailabl e [facility], [facility], PA-C Unavailable Unavailabl e [facility], [facility], PA-C Unavailable Unavailabl e [facility], [facility], PA-C Unavailable Unavailabl e [facility], [facility], PA-C Unavailable Unavailabl e [facility], [facility], PA-C Unavailable Unavailabl e [facility], [facility], PA-C Unavailable Unavailabl e [facility], [facility], PA-C Unavailable Unavailabl e [facility], [facility], PA-C Unavailable Unavailabl e [facility], [facility], PA-C Unavailable Unavailabl e [facility], [facility], PA-C Unavailable Unavailabl e [facility], [facility], PA-C Unavailable Unavailabl e [facility], [facility], PA-C Unavailable Unavailabl e [facility], [facility], PA-C Unavailable Unavailabl e [facility], [facility], PA-C Unavailable Unavailabl e [facility], [facility], PA-C Unavailable Unavailabl e [facility], [facility], PA-C Unavailable Unavailabl e [facility], [facility], PA-C Unavailable Unavailabl e [facility], [facility], PA-C Unavailable Unavailabl e [facility], [facility], PA-C Unavailable Unavailabl e [facility], [facility], PA-C Unavailable Unavailabl e [facility], [facility], PA-C Unavailable Unavailabl e [facility], [facility], PA-C Unavailable Unavailabl e [facility], [facility], PA-C Unavailable Unavailabl e [facility], [facility], PA-C Unavailable Unavailabl e [facility], [facility], PA-C Unavailable Unavailabl e [facility], [facility], PA-C Unavailable Unavailabl e [facility], [facility], PA-C Unavailable Unavailabl e Fish, [...] Ziad MD Unavailable Unavailable MAT, B MELECIO EXTRUDING PRESS ADJUSTER Unavailable Unavailable MAT, B MELECIO EXTRUDING PRESS ADJUSTER Unavailable Unavailable MAT, B MELECIO EXTRUDING PRESS ADJUSTER Unavailable Unavailable MAT, B MELECIO EXTRUDING PRESS ADJUSTER Unavailable Unavailable MAT, B MELECIO EXTRUDING PRESS ADJUSTER Unavailable Unavailable MAT, B MELECIO EXTRUDING PRESS ADJUSTER Unavailable Unavailable MAT, B MELECIO EXTRUDING PRESS ADJUSTER Unavailable Unavailable MAT, B MELECIO EXTRUDING PRESS ADJUSTER Unavailable Unavailable MAT, B MELECIO EXTRUDING PRESS ADJUSTER Unavailable Unavailable MAT, B MELECIO EXTRUDING PRESS ADJUSTER Unavailable Unavailable MAT, B MELECIO EXTRUDING PRESS ADJUSTER Unavailable Unavailable MAT, B MELECIO EXTRUDING PRESS ADJUSTER Unavailable Unavailable MAT, B MELECIO EXTRUDING PRESS ADJUSTER Unavailable Unavailable MAT, B MELECIO EXTRUDING PRESS ADJUSTER Unavailable Unavailable MAT, B MELECIO EXTRUDING PRESS ADJUSTER Unavailable Unavailable MAT, B MELECIO EXTRUDING PRESS ADJUSTER Unavailable Unavailable MAT, B MELECIO EXTRUDING PRESS ADJUSTER Unavailable Unavailable MAT, B MELECIO EXTRUDING PRESS ADJUSTER Unavailable Unavailable MAT, B MELECIO EXTRUDING PRESS ADJUSTER Unavailable Unavailable MAT, B MELECIO EXTRUDING PRESS ADJUSTER Unavailable Unavailable MAT, B MELECIO EXTRUDING PRESS ADJUSTER Unavailable Unavailable MAT, B MELECIO EXTRUDING PRESS ADJUSTER Unavailable Unavailable MAT, B MELECIO EXTRUDING PRESS ADJUSTER Unavailable Unavailable MAT, B MELECIO EXTRUDING PRESS ADJUSTER Unavailable Unavailable MAT, B MELECIO EXTRUDING PRESS ADJUSTER Unavailable Unavailable MAT, B MELECIO EXTRUDING PRESS ADJUSTER Unavailable Unavailable MAT, B MELECIO EXTRUDING PRESS ADJUSTER Unavailable Unavailable MAT, B MELECIO EXTRUDING PRESS ADJUSTER Unavailable Unavailable MAT, B MELECIO EXTRUDING PRESS ADJUSTER Unavailable Unavailable MAT, B MELECIO EXTRUDING PRESS ADJUSTER Unavailable Unavailable MAT, B MELECIO EXTRUDING PRESS ADJUSTER Unavailable Unavailable MAT, B MELECIO EXTRUDING PRESS ADJUSTER Unavailable Unavailable MAT, B MELECIO EXTRUDING PRESS ADJUSTER Unavailable Unavailable MAT, B MELECIO EXTRUDING PRESS ADJUSTER Unavailable Unavailable MAT, B MELECIO EXTRUDING PRESS ADJUSTER Unavailable Unavailable MAT, B MELECIO EXTRUDING PRESS ADJUSTER Unavailable Unavailable MAT, B MELECIO EXTRUDING PRESS ADJUSTER Unavailable Unavailable MAT, B MELECIO EXTRUDING PRESS ADJUSTER Unavailable Unavailable MAT, B MELECIO EXTRUDING PRESS ADJUSTER Unavailable Unavailable MAT, B MELECIO EXTRUDING PRESS ADJUSTER Unavailable Unavailable MAT, B MELECIO EXTRUDING PRESS ADJUSTER Unavailable Unavailable MAT, B EMLECIO EXTRUDING PRESS ADJUSTER Unavailable Unavailable MAT, B MELECIO EXTRUDING PRESS ADJUSTER Unavailable Unavailable MAT, B MELECIO EXTRUDING PRESS ADJUSTER Unavailable Unavailable MAT, B MELECIO EXTRUDING PRESS ADJUSTER Unavailable Unavailable MAT, B MELECIO EXTRUDING PRESS ADJUSTER Unavailable Unavailable MAT, B MELECIO EXTRUDING PRESS ADJUSTER Unavailable Unavailable MAT, B MELECIO EXTRUDING PRESS ADJUSTER Unavailable Unavailable MAT, B MELECIO EXTRUDING PRESS ADJUSTER Unavailable Unavailable MAT, B MELECIO EXTRUDING PRESS ADJUSTER Unavailable Unavailable MAT, B MELECIO EXTRUDING PRESS ADJUSTER Unavailable Unavailable MAT, B MELECIO EXTRUDING PRESS ADJUSTER Unavailable Unavailable MAT, B MELECIO EXTRUDING PRESS ADJUSTER Unavailable Unavailable MAT, B MELECIO EXTRUDING PRESS ADJUSTER Unavailable Unavailable MAT, B MELECIO EXTRUDING PRESS ADJUSTER Unavailable Unavailable MAT, B MELECIO EXTRUDING PRESS ADJUSTER Unavailable Unavailable MAT, B MELECIO EXTRUDING PRESS ADJUSTER Unavailable Unavailable MAT, B MELECIO EXTRUDING PRESS ADJUSTER Unavailable Unavailable MAT, B MELECIO EXTRUDING PRESS ADJUSTER Unavailable Unavailable MAT, B MELECIO EXTRUDING PRESS ADJUSTER Unavailable Unavailable MAT, B MELECIO EXTRUDING PRESS ADJUSTER Unavailable Unavailable MAT, B MELECIO EXTRUDING PRESS ADJUSTER Unavailable Unavailable Lizeth Melgar MD Unavailable Unavailable [...] Unavailable Unavailable Lizeth Melgar MD Unavailable Unavailable Lizteh Melgar MD Unavailable Unavailable Ivy, M Barratt [...] Unavailable Iyv, M Barratt PA Unavailable Unavailable Montgomery, V BRAD PA-C Unavailable Unavailable Pankaj, V BRAD PA-C Unavailable Unavailable Pankaj, V BRAD PA-C Unavailable Unavailable Montgomery, V BRAD PA-C Unavailable Unavailable Montgomery, V BRAD PA-C Unavailable Unavailable Montgomery, V BRAD PA-C Unavailable Unavailable Montgomery, V BRAD PA-C Unavailable Unavailable Montgomery, V BRAD PA-C Unavailable Unavailable Pankaj, V BRAD PA-C Unavailable Unavailable Montgomery, V BRAD PA-C Unavailable Unavailable Montgomery, V BRAD PA-C Unavailable Unavailable Montgomery, V BRAD PA-C Unavailable Unavailable Montgomery, V BRAD PA-C Unavailable Unavailable Montgomery, V BRAD PA-C Unavailable Unavailable Mir Jang [...] A Anil WELLINGTON Unavailable Unavailable Laine, A Anli WELLINGTON Unavailable Unavailable Laine, A Anil WELLINGTON [...] Unavailable Laine, Mir Ma MD Unavailable Unavailable Lanie, Mir Ma MD Unavailable Unavailable Laine, Mir [...] Unavailable Unavailable Harish Richard MD Unavailable Unavailable Harsih Richard MD Unavailable Unavailable Harish Richard MD [...] is protected by Article 27-F of the [facility] Public Health law. If you continue you may have access to information: Regarding HIV / AIDS; Provided by facilities licensed or operated by the [facility] Office of Mental Health; or Provided by the [place] Office for People With Developmental Disabilities. If such information is present, then the following [facility] mandated warning applies: This information has been [...] law may result in a fine or usp sentence or both. A general authorization for the release of medical or other information is NOT sufficient authorization for further disc losure. Allergies and Adverse Reactions Type Description Substance Reaction Status Data Source(s ) Propensity to adverse reactions NO ALLERGIES ON FILE NO ALLERGIES ON FILE [facility] Family History Family Member Name Family Member Gender Family Member Status Date o f Status Description Data Source(s) Unknown Unknown Problem [facility] ([facility]) Unknown Male Problem MEDENT ([facility]) Unknown Unknown Problem MEDENT ([facility]) Encounters Encounter Providers Location Date Indications Data Source(s ) Office Visit Attender: Niesha FRANK PA-C Physical Therapy 07/22/2021 01:15:00 PM EDT MED[facility] ([facility]) Office Visit, Est Pt., Level 3 PC [address] [place] [address] 04/30/2021 12:00:00 AM EDT eCW1 ([facility]) Unknown [address] [facility] [place] [address] 04/29/2021 12:00:00 AM EDT eCW1 ([facility]) Unknown [address] [facility] [place] [address] 04/11/2021 12:00:00 AM EDT eCW1 ([facility]) Outpatient Attender: BRAD LAMAR.SHONDA-[email or web address] 12:00:00 AM EDT - 04/09/2021 08:25:28 AM EDT [facility] Outpatient [address] [facility] [id number] 04/02/2021 12:00:00 AM EDT eCW1 ([facility]) [place] [address] [facility] [address] 04/02/2021 12:00:00 AM EDT eCW1 ([facility]) Outpatient Attender: Nereyda Means MDA dmitter: Nereyda Means MDReferrer: Nereyda Means MD [email or web address] 03/28/2021 06:59:00 AM EDT - 03/28/2021 01:08:00 PM EDT [facility] Patient discharged. Outpatient [address] [facility] [address] 03/19/2021 12:00:00 AM EDT eCW1 ([facility]) Outpatient Attender: BRAD RODGERSSHONDA-SJP.SHONDA 12:00:00 AM EDT - 03/12/2021 09:03:36 AM EDT [facility] Outpatient Attender: MELECIO RIVERO NP Physical Therapy 09:15:00 AM EDT MED[facility] ([facility]) Outpatient Referrer: Yaz [email or web address] 04/2021 12:06:40 PM EDT - 03/05/2021 02:05:[address] [facility] Outpatient Attender: Mildred Richard MD Main office - [facility] 02/14/2021 01:00:00 PM EDT MED[facility] ([facility]) Outpatient Attender: Yaz Salinas MDReferrer: Evin LAMAR.[email or web address].SHONDA 01/24/2021 02:48:45 PM EDT - 01/24/2021 04:09:53 PM EDT [facility] Outpatient Referrer: Bairon Melgar MD MOB-[email or web address].[email or web address] 01/24/20 08:29:04 AM EDT - 01/23/2021 08:29:07 AM EDT [facility] Office Visit Attender: Niesha FRANK PA-C Physical Therapy 01/17/2021 09:45:00 AM EDT [facility] ([facility]) Outpatient [address] [facility] [address] 01/15/2021 12:00:00 AM EDT eCW1 ([facility]) Outpatient Attender: Bairon Melgar MDAdmit ter: Bairon Melgar MDReferrer: Bairon Melgar MD [email or web address] 12/25/2020 02:28:12 PM EDT - 01/28/2021 12:03:00 PM EDT [facility] Patient discharged. Outpatient [address] [facility] [address] 12/11/2020 12:00:00 AM EDT eCW1 ([facility]) Outpatient Attender: MELECIO RIVERO NP Physical Therapy 09:30:00 AM EST MED[facility] ([facility]) OFFICE OUTPATIENT VISIT 15 MINUTES Attender: Niesha FRANK PA-C Physical Therapy 11/30/2020 01:15:00 PM EST [facility] ([facility]) [place]patient [address] [facility] [place] [address] 11/13/2020 12:00:00 AM EST eCW1 ([facility]) Unknown [address] [facility] [place] [address] 11/05/2020 12:00:00 AM EST eCW1 ([facility]) Unknown [address] [facility] [place] [address] 10/23/2020 12:00:00 AM EST eCW1 ([facility]) Unknown [address] [facility] [place] [address] 10/16/2020 12:00:00 AM EST eCW1 ([facility]) Unknown [address] [facility] [place] [address] 10/09/2020 12:00:00 AM EST eCW1 ([facility]) Outpatient [address] [facility] [address] 10/01/2020 12:00:00 AM EST eCW1 ([facility]) Unknown [address] [facility] [place] [address] 10/01/2020 12:00:00 AM EST eCW1 ([facility]) Office Visit Attender: Mildred Richard MD Main office - [facility] 09/25/2020 01:45:00 PM EST [facility] ([facility]) Unknown [address] [facility] [address] 09/10/2020 12:00:00 AM EST eCW1 ([facility]) Unknown [address] [facility] [address] 09/09/2020 12:00:00 AM EST eCW1 ([facility]) Outpatient Attender: MELECIO RIVERO NP Physical Therapy 12:15:00 PM EST [facility] ([facility]) Outpatient [address] [facility] [place] [address] 08/21/2020 12:00:00 AM EST eCW1 ([facility]) OFFICE OUTPATIENT VISIT 15 MINUTES Attender: Niesha FRANK PA-C Physical Therapy 08/17/2020 05:00:00 PM EST [facility] ([facility]) Outpatient [address] [facility] [address] 08/06/2020 12:00:00 AM EST eCW1 ([facility]) Outpatient [address] [facility] [address] 07/18/2020 12:00:00 AM EDT eCW1 ([facility]) Unknown [address] [facility] [address] 07/18/2020 12:00:00 AM EDT eCW1 ([facility]) Unknown [address] [facility] [address] 07/18/2020 12:00:00 AM EDT eCW1 ([facility]) Outpatient [address] [facility] [address] 06/27/2020 12:00:00 AM EDT eCW1 ([facility]) Outpatient Attender: Lorenzo BELLAMY Physical Therapy 01:00:00 PM EDT MED[facility] ([facility]) Outpatient Attender: MELECIO RIVERO NP Physical Therapy 02:15:00 PM EDT MED[facility] ([facility]) Immunizations Vaccine Date Status Description Data Source(s) COVID-19 VACCINE Moderna 11/15/2020 12:00:00 AM EST completed [facility] Vaccine Series Complete: YESThis Data wa s Submitted to [facility] Via [employer]. 11/15/2020 12:00:00 AM EST completed <td I D="[id number]">Covid-19 (Moderna)</td><td>11/15/2020, 10/18/2020</td><td></td> [facility] COVID-19 VACCINE Moderna 10/18/2020 12:00:00 AM EST completed [facility] Vaccine Series Complete: NOThis Data was Submitted to [facility] Via [employer]. 10/18/2020 12:00:00 AM EST completed <td I D="[id number]">Covid-19 (Moderna)</td><td>11/15/2020, 10/18/2020</td><td></td> [facility] influenza, recombinant, quadrIvalent,injectable, prese rvative free 06/27/2020 04:07:00 PM EDT completed eCW1 ([facility]) influenza, recombinant, quadrIvalent,injectable, prese rvative free 06/27/2020 04:07:00 PM EDT completed eCW1 ([facility]) influenza, recombinant, quadrIvalent,injectable, prese rvative free 06/27/2020 04:07:00 PM EDT completed eCW1 ([facility]) influenza, recombinant, quadrIvalent,injectable, prese rvative free 06/27/2020 04:07:00 PM EDT completed eCW1 ([facility]) influenza, recombinant, quadrIvalent,injectable, prese rvative free 06/27/2020 04:07:00 PM EDT completed eCW1 ([facility]) influenza, recombinant, quadrIvalent,injectable, prese rvative free 06/27/2020 04:07:00 PM EDT completed eCW1 ([facility]) influenza, recombinant, quadrIvalent,injectable, prese rvative free 06/27/2020 04:07:00 PM EDT completed eCW1 ([facility]) influenza, recombinant, quadrIvalent,injectable, prese rvative free 06/27/2020 04:07:00 PM EDT completed eCW1 ([facility]) influenza, recombinant, quadrIvalent,injectable, prese rvative free 06/27/2020 04:07:00 PM EDT completed eCW1 ([facility]) influenza, recombinant, quadrIvalent,injectable, prese rvative free 06/27/2020 04:07:00 PM EDT completed eCW1 ([facility]) influenza, recombinant, quadrIvalent,injectable, prese rvative free 06/27/2020 04:07:00 PM EDT completed eCW1 ([facility]) influenza, recombinant, quadrIvalent,injectable, prese rvative free 06/27/2020 04:07:00 PM EDT completed eCW1 ([facility]) influenza, recombinant, quadrIvalent,injectable, prese rvative free 06/27/2020 04:07:00 PM EDT completed eCW1 ([facility]) influenza, recombinant, quadrIvalent,injectable, prese rvative free 06/27/2020 04:07:00 PM EDT completed eCW1 ([facility]) influenza, recombinant, quadrIvalent,injectable, prese rvative free 06/27/2020 04:07:00 PM EDT completed eCW1 ([facility]) influenza, recombinant, quadrIvalent,injectable, prese rvative free 06/27/2020 04:07:00 PM EDT completed eCW1 ([facility]) influenza, recombinant, quadrIvalent,injectable, prese rvative free 06/27/2020 04:07:00 PM EDT completed eCW1 ([facility]) influenza, recombinant, quadrIvalent,injectable, prese rvative free 06/27/2020 04:07:00 PM EDT completed eCW1 ([facility]) influenza, recombinant, quadrIvalent,injectable, prese rvative free 06/27/2020 04:07:00 PM EDT completed eCW1 ([facility]) influenza, recombinant, quadrIvalent,injectable, prese rvative free 06/27/2020 04:07:00 PM EDT completed eCW1 ([facility]) influenza, recombinant, quadrIvalent,injectable, prese rvative free 06/27/2020 04:07:00 PM EDT completed eCW1 ([facility]) influenza, recombinant, quadrIvalent,injectable, prese rvative free 06/27/2020 04:07:00 PM EDT completed eCW1 ([facility]) influenza, recombinant, quadrIvalent,injectable, prese rvative free 06/27/2020 04:07:00 PM EDT completed eCW1 ([facility]) Pneumococcal conjugate PCV 06/27/2020 02:09:00 PM EDT completed eCW1 ([facility]) Pneumococcal conjugate PCV 06/27/2020 02:09:00 PM EDT completed eCW1 ([facility]) Pneumococcal conjugate PCV 06/27/2020 02:09:00 PM EDT completed eCW1 ([facility]) Pneumococcal conjugate PCV 06/27/2020 02:09:00 PM EDT completed eCW1 ([facility]) Pneumococcal conjugate PCV 06/27/2020 02:09:00 PM EDT completed eCW1 ([facility]) Pneumococcal conjugate PCV 06/27/2020 02:09:00 PM EDT completed eCW1 ([facility]) Pneumococcal conjugate PCV 06/27/2020 02:09:00 PM EDT completed eCW1 ([facility]) Pneumococcal conjugate PCV 06/27/2020 02:09:00 PM EDT completed eCW1 ([facility]) Pneumococcal conjugate PCV 06/27/2020 02:09:00 PM EDT completed eCW1 ([facility]) Pneumococcal conjugate PCV 13 06/27/2020 02:09:00 PM EDT completed eCW1 ([facility]) Pneumococcal conjugate PCV 13 06/27/2020 02:09:00 PM EDT completed eCW1 ([facility]) Pneumococcal conjugate PCV 13 06/27/2020 02:09:00 PM EDT completed eCW1 ([facility]) Pneumococcal conjugate PCV 13 06/27/2020 02:09:00 PM EDT completed eCW1 ([facility]) Pneumococcal conjugate PCV 13 06/27/2020 02:09:00 PM EDT completed eCW1 ([facility]) Pneumococcal conjugate PCV 13 06/27/2020 02:09:00 PM EDT completed eCW1 ([facility]) Pneumococcal conjugate PCV 13 06/27/2020 02:09:00 PM EDT completed eCW1 ([facility]) Pneumococcal conjugate PCV 13 06/27/2020 02:09:00 PM EDT completed eCW1 ([facility]) Pneumococcal conjugate PCV 13 06/27/2020 02:09:00 PM EDT completed eCW1 ([facility]) Pneumococcal conjugate PCV 13 06/27/2020 02:09:00 PM EDT completed eCW1 ([facility]) Pneumococcal conjugate PCV 13 06/27/2020 02:09:00 PM EDT completed eCW1 ([facility]) Pneumococcal conjugate PCV 13 06/27/2020 02:09:00 PM EDT completed eCW1 ([facility]) Pneumococcal conjugate PCV 13 06/27/2020 02:09:00 PM EDT completed eCW1 ([facility]) Pneumococcal conjugate PCV 13 06/27/2020 02:09:00 PM EDT completed eCW1 ([facility]) Medications Medication Brand Name Start Date Product Form Dose Route Admi nistrative Instructions Pharmacy Instructions Status Indications Reaction Description Data Source(s) 6 ML HYLAN G-F 20 8 MG/ML Prefilled Syringe [Synvisc] Synvis c One 07/22/2021 12:00:00 AM EDT active M EDENT ([facility]) 29 gauge x 1/2" 07/13/2021 12:00:00 [...] BY MOUTH TWICE A DAY SOLD: 06/26/2021 [facility] carvedilol 25 MG Oral Tablet CARVEDILOL [...] Prednisone 04/03/2021 12:00:00 AM EDT active MEDENT ([facility] ) Flonase Allergy Relief 50 MCG/ACT Flonase Allergy Relief 50 MCG/ACT 04/02/2021 12:00:00 AM EDT active Flonase Allergy Relief 50 MCG/ACT eCW1 ([facility]) Flonase Allergy Relief 50 MCG/ACT Flonase Allergy Relief 50 MCG/ACT 04/02/2021 12:00:00 AM EDT active Flonase Allergy Relief 50 MCG/ACT eCW1 ([facility]) Flonase Allergy Relief 50 MCG/ACT Flonase Allergy Relief 50 MCG/ACT 04/02/2021 12:00:00 AM EDT active Flonase Allergy Relief 50 MCG/ACT eCW1 ([facility]) 50 mcg/actuation 04/02/2021 12:00:00 AM EDT spray,suspension 16 SPRAY TWO SPRAYS IN EACH NOSTRIL EVERY DAY SPRAY TWO SPRAYS IN EACH NOSTRIL EVERY DAY SOLD: 04/02/2021 [facility] Fluticasone propionate 0.05 MG/ACTUAT Metered Dose [place] 50 mcg/actuation FLUTICASONE PROPIONATE 04/02/2021 12:00:00 AM [...] Drugs fluticasone (FLONASE) 50 MCG/ACT nasal spray 4334-8387-78 04/02/2021 12:00:00 AM EDT active SPRAY TWO SPRAYS IN EACH NOSTRIL EVERY DAY [facility] Fluticasone propionate 0.05 MG/ACTUAT Metered Dose [place] 50 mcg/actuation FLUTICASONE PROPIONATE 04/02/2021 12:00:00 AM EDT spray,suspension 16 SPRAY TWO SPRAYS IN EACH NOSTRIL EVERY DAY SPRAY TWO SPRAYS IN EACH NOSTRIL EVERY DAY SOLD: 06/12/2021 [facility] Flonase Allergy Relief 50 MCG/ACT Flonase Allergy Relief 50 MCG/ACT 04/02/2021 12:00:00 AM EDT active Flonase Allergy Relief 50 MCG/ACT eCW1 ([facility]) Flonase Allergy Relief 50 MCG/ACT Flonase Allergy Relief 50 MCG/ACT 04/02/2021 12:00:00 AM EDT active Flonase Allergy Relief 50 MCG/ACT eCW1 ([facility]) Fluticasone propionate 0.05 MG/ACTUAT Metered Dose Pa [place] 50 mcg/actuation FLUTICASONE PROPIONATE 04/02/2021 12:00:00 AM [...] HCL 03/26/2021 12:00:00 AM EDT completed MEDENT ([facility] ) 0.005 % 03/26/2021 [...] active Amitriptyline HCl 10 MG e 1 ([facility]) 10 mg 03/19/2021 12:00:00 AM EDT tablet [...] (300mg total) the night before the procedure. [facility] 75 mg 03/12/2021 12:00:00 AM EDT [...] SKIN ONCE DAILY MAX 1.8MG/DAY SOLD: 05/15/2021 [facility] 0.6 mg/0.1 mL (18 mg/3 [...] Take 1,0 00 Units by mouth daily [facility] latanoprost 0.05 MG/ML Ophthalmic Soluti on latanoprost (XALATAN) 0.005 % ophthalmic solution latanoprost (XALATAN) 0.005 % ophthalmic solution 12/27 12:00:00 AM EDT active INSTILL ONE DROP INTO BOTH EYES EVERY NIGHT [facility] carvedilol 25 MG Oral Tablet carvedilol (COREG) 25 MG tablet carvedilol (COREG) 25 MG tablet 01/04/2021 12:00:00 AM EDT 25 mg Oral activ e Take 25 mg by mouth 2 (two) times a day [facility] Magnesium Oxide 400 MG Oral Tablet magnesium oxide (MA G-OX) 400 MG tablet magnesium oxide (MAG-OX) 400 MG tablet 01/03/2021 12:00:00 AM EDT active TAKE TWO TABLETS BY MOUTH TWICE A DAY [facility] 100 unit/mL 01/02/2021 12:00:00 AM EDT [...] 5 TIMES PER WEEK THURSDAY THROUGH THURSDAY [facility] 3 ML Insulin Lispro 100 UNT/ML Pen Injec tor [Humalog] HumaLOG KwikPen 100 UNIT/ML SOPN HumaLOG KwikPen 100 UNIT/ML SOPN 01/02/2021 12:00:00 AM EDT active INJECT UNDER SKIN DIRE CTED PER SLIDING SCALE MAX 53UNITS/DAY [facility] 100 unit/mL 01/02/2021 12:00:00 AM EDT [...] by mouth 2 (two) times a day [facility] glimepiride 4 MG Oral Tablet GLIMEPIRIDE 12/03/2020 12:00:00 AM EST t ablet 180 TAKE ONE TABLET BY MOUTH TWICE A DAY TAKE ONE TABLET BY MOUT H TWICE A DAY SOLD: 12/03/2020 [facility] 80 mg 12/01/2020 12:00:00 AM EST tablet 90 TAKE ONE TABLET BY MOUTH EVERY DAY IN THE EVENING TAKE ONE TABLET BY MOUTH EVERY DAY IN THE EVENING SOLD : 12/01/2020 [facility] Simvastatin 80 MG Oral Tablet simvastatin (ZOCOR) 80 M G tablet simvastatin (ZOCOR) 80 MG tablet 12/01/2020 12:00:00 AM EST 80 mg Oral active Take 80 mg by mouth [facility] gabapentin 600 MG Oral Tablet gabapentin (NEURONTIN) 6 00 MG tablet gabapentin (NEURONTIN) 600 MG tablet 11/20/2020 12:00:00 AM EST 600 mg Oral active Take 600 mg by mouth 3 (three) times a day [facility] [place] 600 mg 11/20/2020 12:00:00 AM EST tablet 270 TAKE ONE TABLET BY MOUTH THREE TIMES A DAY TAKE ONE TABLET BY MOUTH THREE TIMES A DAY SOLD: 11/20/2020 [facility] 3 ML liraglutide 6 MG/ML Pen Injector [Victoza] Victoz a 18 MG/3ML SOPN Victoza 18 MG/3ML SOPN 11/17/2020 12:00:00 AM EST act vero INJECT 1.8MG UNDER SKIN ONCE DAILY [facility] 1,250 mcg (50,000 unit) 11/10/2020 12:00:00 AM EST capsule 6 TAKE 1 CAPSULE BY MOUTH EVERY WEEK FOR 6 WEEKS TAKE 1 CAPSULE BY MOUTH EVERY WEEK FOR 6 WEEKS SOLD: 11/11/2020 [place] Ergocalciferol 71278 UNT Oral Capsule vi tamin D, Ergocalciferol, 1.25 MG (11674 UT) CAPS vitamin D, Ergocalciferol, 1.25 MG (32113 UT) CAPS 12:00:00 AM EST aborted TAKE 1 CAPSULE B Y MOUTH EVERY WEEK FOR 6 WEEKS [facility] carvedilol 25 MG Oral Tablet CARVEDILOL 11/08/2020 12:00:00 AM EST tab let 60 TAKE 1 TABLET BY MOUTH TWICE A DAY TAKE 1 TABLET BY MOUTH TWICE A DAY SOLD: 12/07/2020 [place] carvedilol 25 MG Oral Tablet CARVEDILOL 11/08/2020 12:00:00 AM EST tab let 60 TAKE 1 TABLET BY MOUTH TWICE A DAY TAKE 1 TABLET BY MOUTH TWICE A DAY SOLD: 04/03/2021 [place] carvedilol 25 MG Oral Tablet CARVEDILOL 11/08/2020 12:00:00 AM EST tab let 60 TAKE 1 TABLET BY MOUTH TWICE A DAY TAKE 1 TABLET BY MOUTH TWICE A DAY SOLD: 03/07/2021 [place] carvedilol 25 MG Oral Tablet CARVEDILOL 11/08/2020 12:00:00 AM EST tab let 60 TAKE 1 TABLET BY MOUTH TWICE A DAY TAKE 1 TABLET BY MOUTH TWICE A DAY SOLD: 11/08/2020 [place] carvedilol 25 MG Oral Tablet CARVEDILOL 11/08/2020 12:00:00 AM EST tab let 60 TAKE 1 TABLET BY MOUTH TWICE A DAY TAKE 1 TABLET BY MOUTH TWICE A DAY SOLD: 02/05/2021 [place] carvedilol 25 MG Oral Tablet CARVEDILOL 11/08/2020 12:00:00 AM EST tab let 60 TAKE 1 TABLET BY MOUTH TWICE A DAY TAKE 1 TABLET BY MOUTH TWICE A DAY SOLD: 01/04/2021 [place] 100 unit/mL 10/31/2020 12:00:00 AM EST insulin [...] Kwikalicia 07/30/2020 12:00:00 AM EST active MEDENT ([facility]) 1 mg 07/19/2020 [...] {tablet_on_the_tongue_and_allow_to_dissolve} active Zofran ODT 4 MG eCW1 (Formerly [facility]) Zofran ODT 4 MG K 07/18/2020 12:00:00 AM EDT 1.0 {tablet_on_the_tongue_and_allow_to_dissolve} active Zofran ODT 4 MG eCW1 (Formerly [facility]) Zofran ODT 4 MG K 07/18/2020 12:00:00 AM EDT 1.0 {tablet_on_the_tongue_and_allow_to_dissolve} active Zofran ODT 4 MG eCW1 ([facility]ly [facility]) Zofran ODT 4 MG K 07/18/2020 12:00:00 AM EDT 1.0 {tablet_on_the_tongue_and_allow_to_dissolve} active Zofran ODT 4 MG eCW1 ([facility]ly [facility]) Zofran ODT 4 MG UNK 07/18/2020 12:00:00 AM EDT 1.0 {tablet_on_the_tongue_and_allow_to_dissolve} active Zofran ODT 4 MG eCW1 ([facility]ly [facility]) Zofran ODT 4 MG UNK 07/18/2020 12:00:00 AM EDT 1.0 {tablet_on_the_tongue_and_allow_to_dissolve} active Zofran ODT 4 MG eCW1 ([facility]ly [facility]) Zofran ODT 4 MG UNK 07/18/2020 12:00:00 AM EDT 1.0 {tablet_on_the_tongue_and_allow_to_dissolve} active Zofran ODT 4 MG eCW1 ([facility]) Zofran ODT 4 MG UNK 07/18/2020 12:00:00 AM EDT 1.0 {tablet_on_the_tongue_and_allow_to_dissolve} active Zofran ODT 4 MG eCW1 ([facility]) Zofran ODT 4 MG UNK 07/18/2020 12:00:00 AM EDT 1.0 {tablet_on_the_tongue_and_allow_to_dissolve} active Zofran ODT 4 MG eCW1 ([facility]) Zofran ODT 4 MG UNK 07/18/2020 12:00:00 AM EDT 1.0 {tablet_on_the_tongue_and_allow_to_dissolve} active Zofran ODT 4 MG eCW1 ([facility]) Zofran ODT 4 MG UNK 07/18/2020 12:00:00 AM EDT 1.0 {tablet_on_the_tongue_and_allow_to_dissolve} active Zofran ODT 4 MG eCW1 ([facility]) Zofran ODT 4 MG UNK 07/18/2020 12:00:00 AM EDT 1.0 {tablet_on_the_tongue_and_allow_to_dissolve} active Zofran ODT 4 MG eCW1 ([facility]) Zofran ODT 4 MG UNK 07/18/2020 12:00:00 AM EDT 1.0 {tablet_on_the_tongue_and_allow_to_dissolve} active Zofran ODT 4 MG eCW1 ([facility]) Zofran ODT 4 MG UNK 07/18/2020 12:00:00 AM EDT 1.0 {tablet_on_the_tongue_and_allow_to_dissolve} active Zofran ODT 4 MG eCW1 ([facility]) Zofran ODT 4 MG UNK 07/18/2020 12:00:00 AM EDT 1.0 {tablet_on_the_tongue_and_allow_to_dissolve} active Zofran ODT 4 MG eCW1 ([facility]) Zofran ODT 4 MG UNK 07/18/2020 12:00:00 AM EDT 1.0 {tablet_on_the_tongue_and_allow_to_dissolve} active Zofran ODT 4 MG eCW1 ([facility]) Zofran ODT 4 MG UNK 07/18/2020 12:00:00 AM EDT 1.0 {tablet_on_the_tongue_and_allow_to_dissolve} active Zofran ODT 4 MG eCW1 ([facility]) Zofran ODT 4 MG UNK 07/18/2020 12:00:00 AM EDT 1.0 {tablet_on_the_tongue_and_allow_to_dissolve} active Zofran ODT 4 MG eCW1 ([facility]) Zofran ODT 4 MG UNK 07/18/2020 12:00:00 AM EDT 1.0 {tablet_on_the_tongue_and_allow_to_dissolve} active Zofran ODT 4 MG eCW1 ([facility]) 4 mg 07/18/2020 12:00:00 AM EDT tablet,disintegrating [...] {tablet_on_the_tongue_and_allow_to_dissolve} active Zofran ODT 4 MG eCW1 ([facility]) Zofran ODT 4 MG UNK 07/18/2020 12:00:00 AM EDT 1.0 {tablet_on_the_tongue_and_allow_to_dissolve} active Zofran ODT 4 MG eCW1 ([facility]) Zofran ODT 4 MG UNK 07/18/2020 12:00:00 AM EDT 1.0 {tablet_on_the_tongue_and_allow_to_dissolve} active Zofran ODT 4 MG eCW1 ([facility]) 4 mg 07/11/2020 12:00:00 AM EDT tablet [...] Golytely 07/10/2020 12:00:00 AM EDT active MEDENT ([facility], ) Magnesium Hydroxide 80 MG/ML Oral Suspension Milk Of Magnesi a 07/10/2020 12:00:00 AM EDT ORAL active M EDENT ([facility], ) 33 gauge 07/03/2020 12:00:00 AM [...] 07/02/2020 12:00:00 AM EDT activ e MEDENT ([facility] ) Fora Blood Glucose Test 07/02/2020 12:00:00 AM EDT active MEDENT ([facility] ) 200 unit/mL (3 [...] BY MOUTH TWICE A DAY SOLD: 08/22/2020 [facility] carvedilol 25 MG Oral Tablet [...] TABLET BY MOUTH EVERY EVENING SOLD: 06/12/2020 [facility] Oxymetazoline HCl (NASAL SPRAY LONG ACTING NA) drug or medication Nasal aborted into each nostril [facility] 60 ACTUAT exenatide 0.01 MG/ACTUAT Pen I njector [Byetta] Exenatide (Byetta 10 MCG Pen) 10 MCG/0.04ML SOPN Exenatide (Byetta 10 MCG Pen) 10 MCG/0.04ML SOPN Subcutaneous aborted Inject unde r the skin [facility] Insurance Providers Payer name Policy type / Coverage type Policy ID Covered libertarian ID Covered libertarian's relationship to gunn Policy Gunn Plan Information MEDICARE [id number] SP [id number] [id number] MEDICARE [id number] Lida [id number] A79 MEDICARE [id number] [place] [id number] A79 MEDICARE A [id number] Self [id number] MEDICARE [id number] MEDICARE [id number] SP [id number] A MEDICAID [id number] SP [id number] [place] Primary [id number] Self 1 [id number] Medicare [place] Medicare Primary [id number] Self 1 [id number] [place] Medicare Primary [id number] Self [id number] Medicare [place] Medicare Primary [id number] Self [id number] [place] Medicare Primary [id number] Self [id number] [place] Medicare Primary [id number] Self 1 [id number] [place] Medicare Primary [id number] Self 1 [id number] Medicare [place] Medicare Primary [id number] Self 1 [id number] [place] Medicare Primary [id number] Self 1 [id number] [place] Primary [id number] Self [id number] Medicaid [facility] Part B [id number] Self [id number] [place] Primary [id number] [id number] Self 1 [id number] [place] Medicare Primary [id number] Self [id number] MEDICAID [id number] SP [id number] MEDICARE [id number] SP [id number] A MEDICAID [id number] SP [id number] MEDICAID [id number] SP [id number] MEDICAID M [id number] Self [id number] [facility] MEDICARE [id number] 1 [facility] MEDICARE [id number] Lida [id number] 99 [facility] [id number] SP [id number] [facility] MEDICARE [id number] 1 [facility] MEDICARE [id number] Lida [id number] MEDICAID [id number] [place] [id number] MEDICAID [id number] [facility] [id number] [facility] [id number] [facility]-Medicaid [id number] [facility] [id number] MEDICARE [id number] SP [id number] [facility] [id number] [facility]-Medicaid [id number] ANSI-Medicaid [id number] ANSI-Medicare Part B [id number] ANSI-Medicaid [id number] ANSI-Medicare Part B [id number] ANSI-Medicaid [id number] ANSI-Medicare Part B [id number] Medicaid [facility] Part B [id number] [id number] Self [id number] Medicare [place] Medicare Primary [id number] Self [id number] ANSI-Medicare Part B [id number] ANSI-Medicaid [id number] MEDICARE [id number] SP [id number] ANSI-Medicare Part B [id number] ANSI-Medicaid [id number] ANSI-Medicare Part B [id number] ANSI-Medicaid [id number] ANSI-Medicare Part B [id number] ANSI-Medicaid [id number] ANSI-Medicaid [id number] ANSI-Medicare Part B [id number] ANSI-Medicare Part B [id number] ANSI-Medicaid [id number] ANSI-Medicare Part B [id number] ANSI-Medicaid [id number] ANSI-Medicaid [id number] ANSI-Medicare Part B [id number] ANSI-Medicare Part B [id number] ANSI-Medicaid [id number] ANSI-Medicaid [id number] ANSI-Medicare Part B [id number] Medicaid [facility] Part B [id number] [id number] Self [id number] Medicare [place] Medicare Primary [id number] Self [id number] ANSI-Medicare Part B [id number] ANSI-Medicaid [id number] Medicaid [facility] Part B [id number] .1629.90794.0 Self [id number] Medicare [place] Medicare Primary [id number] Self [id number] ANSI-Medicare Part B [id number] ANSI-Medicaid [id number] ANSI-Medicare Part B [id number] ANSI-Medicaid [id number] ANSI-Medicare Part B [id number] ANSI-Medicaid [id number] ANSI-Medicaid [id number] ANSI-Medicare Part B [id number] ANSI-Medicaid [id number] ANSI-Medicare Part B [id number] ANSI-Medicare Part B [id number] ANSI-Medicaid [id number] SELF PAY ONLY 000 SP 000 ANSI-Medicare Part B [id number] ANSI-Medicaid [id number] ANSI-Medicare Part B [id number] ANSI-Medicaid [id number] ANSI-Medicaid [id number] ANSI-Medicare Part B [id number] ANS-Medicare Part B [id number] ANSI-Medicaid [id number] ANS-Medicare Part B [id number] ANS-Medicaid [id number] [facility]-Medicare Part B [id number] ANS-Medicaid [id number] Medicaid [facility] Part B [id number] Self [id number] [place] Medicare Primary [id number] Self [id number] MEDICARE C [id number] S [id number] A Medicaid [facility] Part B [id number] Self [id number] [place] Medicare Primary [id number] Self [id number] [place] MEDICARE PART B [id number] S [id number] Medicaid [facility] Part B [id number] .[id number] Self [id number] Medicare [place] Medicare Primary [id number] Self [id number] MEDICAID -I/P [id number] MEDICARE PART A -I/P [id number] 18 [id number] [facility], [facility] C [id number] S [id number] MEDICAID -O/P EMERGENCY ROOM [id number] MEDICARE PART A -O/P [id number] 18 [id number] MEDICAID-O/P UNAVAILABLE UNAVA ILABLE Medicaid [facility] Part B [id number] .9288.0 Self [id number] Medicare [place]/[facility] Medicare Primary [id number] Self [id number] MEDICAID [id number] SP [id number] MEDICARE - [place] MCR [id number] S [id number] [facility] MED[facility] [id number] SP [id number] U [id number] [id number] SP [id number] [facility] [id number] SP [id number] [facility] [id number] SP [id number] [facility] [id number] SP [id number] MEDICARE [id number] SP [id number] [facility](MCAID) O [id number] S [id number] MEDICARE C [id number] S [id number] MEDICAID M [id number] S [id number] MEDICAID [id number] SP [id number] ANSI-Medicaid [id number] ANSI-Medicare Part B [id number] ANSI-Medicare Part B [id number] ANSI-Medicaid [id number] ANSI-Medicaid [id number] ANSI-Medicare Part B [id number] ANSI-Medicare Part B [id number] ANSI-Medicaid [id number] ANSI-Medicare Part B [id number] ANSI-Medicaid [id number] ANSI-Medicare Part B [id number] ANSI-Medicaid [id number] ANSI-Medicare Part B [id number] ANSI-Medicaid [id number] ANSI-Medicare Part B [id number] ANSI-Medicaid [id number] ANSI-Medicare Part B [id number] ANSI-Medicaid [id number] ANSI-Medicaid [id number] ANSI-Medicare Part B [id number] ANSI-Medicaid [id number] ANSI-Medicare Part B [id number] Problems, Conditions, and Diagnoses Code Display Name Description Problem Type Effective Dates Data Source(s) Z01.818 Encounter for other preprocedural examin ation Encounter for other preprocedural examin Diagnosis 04/09/2021 07:57:37 AM EDT [facility] E78.2 Mixed hyperlipidemia Mixed hyperlipidemia Diagnosis 04/09/2021 07:57:37 AM EDT [facility] I51.7 Cardiomegaly Cardiomegaly Diagnosis 04/09/2021 07:57:37 A M EDT [facility] I10 Essential (primary) hypertension Essential (primary) h ypertension Diagnosis 03/28/2021 06:59:00 AM EDT [facility] 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 Diagnosis 03/28/2021 06:59:00 AM EDT [facility] N18.30 Chronic kidney disease, stage 3 unspecif ied Chronic kidney disease, stage 3 unspecif Diagnosis 03/28/2021 06:59:00 AM EDT [facility] E11.22 Type 2 diabetes mellitus with diabetic c hronic kidney disease Type 2 diabetes mellitus with diabetic c Diagnosis 03/28/2021 06:59:00 AM EDT [facility] R07.89 Other chest pain Other chest pain Diagnosis 03/28/2021 06 :59:00 AM EDT [facility] K21.9 Gastro-esophageal reflux disease without esophagitis Gastro-esophageal reflux disease without Diagnosis 01/28/2021 10:21:00 AM EDT [facility] U07.1 COVID-19 COVID-19 Diagnosis 01/23/2021 08:29:04 AM ED T [facility] J31.0 [id number] Rhinitis, unspecified type Problem 12:00:00 AM EDT eCW1 ([facility]) G43.019 [id number] Intractable migraine without aura and without status migrainosus Problem 03/19/2021 12:00:00 AM EDT eCW1 ([facility]) Z01.818 Preoperative clearance Preoperative clearance [id number] 01/24/2021 12:00:00 AM EDT [facility] E11.22 Type 2 diabetes mellitus wit h chronic kidney disease, with long-term current use of insulin Type 2 diabetes mellitus with chronic ki dney disease, with long-term current use of insulin [id number] 01/24/2021 12:00:00 AM EDT [facility] I10 Essential hypertension Essential hypertension [id number] 01/24/2021 12:00:00 AM EDT [facility] E78.2 Mixed hyperlipidemia Mixed hyperlipidemia [id number] 01/24/2021 12:00:00 AM EDT [facility] R07.89 Chest discomfort Chest discomfort [id number] 01/24/2021 12 :00:00 AM EDT [facility] I51.7 Cardiomegaly Cardiomegaly [id number] 01/20/2021 12:00:00 A M EDT [facility] H40.9 Glaucoma Glaucoma of both eyes, unspecified glauco ma type Problem 11/20/2020 12:00:00 AM EST eCW1 ([facility]) E66.01 [id number] Morbid (severe) obesity due to excess c alories Problem 10/02/2020 12:00:00 AM EST eCW1 ([facility]) E78.2 [id number] Mixed hyperlipidemia Problem 08/21/2020 12:0 0:00 AM EST eCW1 ([facility]) Surgeries/Procedures Procedure Description Date Indications Data Source(s) ARTHROCENTESIS ASPIR&/INJECTION MAJOR JT/BURSA 021 12:00:00 AM EDT [facility] ([facility]) MRI BRAIN BRAIN STEM W/O CONTRAST MATERIAL 04/05/2021 12:00:00 AM EDT [facility] ([facility]) MRI BRAIN BRAIN STEM W/O CONTRAST MATERIAL 04/05/2021 12:00:00 AM EDT [facility] ([facility] ) TROPONIN QUANTITATIVE <td>TROPONIN I</td><td>Routine</td><td>03/21/2021</td><td></td><td> </td> 03/21/2021 12:00:00 AM EDT [facility] PROTHROMBIN TIME <td>PROTIME- INR</td><td>Routine</td><td>03/20/2021</td><td></td><td> </td> 03/20/2021 12:00:00 AM EDT [facility] BLOOD COUNT COMPLETE AUTO&AUTO DIFRNTL WBC COUNT <td>C BC AND DIFFERENTIAL</td><td>Routine</td><td>03/20/2021</td><td></td><td> </td> 03/20/2021 12:00:00 AM EDT [facility] PROTHROMBIN TIME <td>POCT INR</td><td>Routine</td><td>03/20/2021</td><td></td><td> </td> 03/20/2021 12:00:00 AM EDT [facility] HEPATIC FUNCTION PANEL <td>HEPATIC FUNCTION PANEL</td><td>Routine</td><td>03/20/2021</td><td></td><td> </td> 03/20/2021 12:00:00 AM EDT [facility] BASIC METABOLIC PANEL CALCIUM TOTAL <td>BASIC METABOLI C PANEL</td><td>Routine</td><td>03/20/2021</td><td></td><td> </td> 03/20/2021 12:00:00 AM EDT [facility] POCT AMB EKG <td>POCT AMB EKG</td><td>Rou julia</td><td>03/12/2021 12:37 PM EDT</td><td> Chest discomfort</td><td> </td> 03/12/2021 12:37:00 PM EDT Chest discomfort [facility] Chest discomfort OFFICE OUTPATIENT VISIT 15 MINUTES 02/14/2021 12:00:00 AM EDT [facility] ([facility]) UPPER NDSC BIOPSY SINGLE/MULTIPLE 01/28/2021 12:00:00 AM EDT [facility] ([facility]) POCT AMB EKG <td>POCT AMB EKG</td><td>Rou julia</td><td>01/24/2021 3:46 PM EDT</td><td> Cardiomegaly</td><td> </td> 01/24/2021 03:46:00 PM EDT Cardiomegaly [facility] Cardiomegaly ARTHROCENTESIS ASPIR&/INJECTION MAJOR JT/BURSA 021 12:00:00 AM EDT [facility] ([facility]) Diabetic Foot Exam 12/04/2020 12:00:00 AM EST [facility] ([facility]) BLOOD COUNT COMPLETE AUTO&AUTO DIFRNTL WBC COUNT <td>C BC AND DIFFERENTIAL</td><td>Routine</td><td>11/24/2020</td><td></td><td> </td> 11/24/2020 12:00:00 AM EST [facility] THYROID STIMULATING HORMONE TSH <td>TSH</td><td>Routine</td><td>11/24/2020</td><td></td><td> </td> 11/24/2020 12:00:00 AM EST [facility] BASIC METABOLIC PANEL CALCIUM TOTAL <td>BASIC METABOLI C PANEL</td><td>Routine</td><td>11/24/2020</td><td></td><td> </td> 11/24/2020 12:00:00 AM EST [facility] HEMOGLOBIN GLYCOSYLATED A1C <td>HEMOGLOBIN A1C</td><td>Routine</td><td>11/20/2020</td><td></td><td> </td> 11/20/2020 12:00:00 AM EST [facility] LIPID PANEL <td>LIPID PANEL</td><td>Rout ine</td><td>11/20/2020</td><td></td><td> </td> 11/20/2020 12:00:00 AM [facility] ARTHROCENTESIS ASPIR&/INJECTION MAJOR JT/BURSA 020 12:00:00 AM EST [facility] ([facility] ) RADIOLOGIC EXAM KNEE COMPLETE 4/MORE VIEWS 08/17/2020 12:00:00 AM EST [facility] ([facility] ) RADIOLOGIC EXAM KNEE COMPLETE 4/MORE VIEWS 08/17/2020 12:00:00 AM EST [facility] ([facility] ) RADIOLOGIC EXAM KNEE COMPLETE 4/MORE VIEWS 08/17/2020 12:00:00 AM EST [facility] ([facility] ) RADIOLOGIC EXAM KNEE COMPLETE 4/MORE VIEWS 08/17/2020 12:00:00 AM EST [facility] ([facility] ) TSTG ANS FUNCJ CARDIOVAGAL INNERVAJ PARASYMP 0 12:00:00 AM EDT [facility] ([facility] TSTG ANS FUNCJ CARDIOVAGAL INNERVAJ PARASYMP 0 12:00:00 AM EDT [facility] ([facility] ) TESTING AUTONOMIC NERVOUS SYSTEM FUNCTION 07/20/2020 1 2:00:00 AM EDT [facility] ([facility] TESTING AUTONOMIC NERVOUS SYSTEM FUNCTION 07/20/2020 1 2:00:00 AM EDT [facility] ([facility]) PNEUMOCOCCAL CONJ VACCINE 13 VALENT IM 06/27/2020 12:0 0:00 AM EDT eCW1 ([facility]) Immunization: Flublok Quadrivalent (18 years & older) 0.5mL IM (Influenza) 06/27/2020 12:00:00 AM EDT eCW1 ([facility]) RADEX SPINE LUMBOSACRAL 2/3 VIEWS 06/08/2020 12:00:00 AM EDT [facility] ([facility]) Results ID Date Data Source [id number] 07/23/2021 07:38:00 AM EDT [facility] Name Value Range Interpretation Code Description Data Allegra rce(s) Supporting Document(s) SARS coronavirus 2 RNA [Presence] in Res piratory specimen by MARLEEN with probe detection NEGATIVE [facility] This lab was ordered by [facility] a nd reported by [facility]. ID Date Data Source [id number] 03/28/2021 08:24:46 AM EDT [facility] Name Value Range Interpretation Code Description Data Allegra rce(s) Supporting Document(s) EKG [facility] [id number] [file] [id number] ID Date Data Source [id number] 03/28/2021 07:53:15 AM EDT [facility] Name Value Range Interpretation Code Description Data Allegra rce(s) Supporting Document(s) POC NOVA GLU 252 mg/dL (70-99) H [facility] [facility] [place] PERFORMED BY [facility] ID Date Data Source [id number] 03/13/2021 07:25:00 AM EDT [facility] FASTING: UNKNOWNReceived: 03/13/2021 at 06:28:00 QPT: [facility], [address], [address] [facility], [place], [address], Nito Smallwood MD Received: 03/13/2021 at 06:28:00 QPT : [facility], [address], [address] [facility], [place], [address], Nito Smallwood MD Name Value Range Interpretation [...] is approximately 13% higher for peopleidentified as -Cypriot. eGFR NON-AFR. UKRAINIAN 44 mL/min/1.73m2 > OR = 60 Below [...] normal [facility] ID Date Data Source [id number] 03/13/2021 07:25:00 AM EDT [facility] FASTING: UNKNOWNReceived: 03/13/2021 at 06:28:00 QPT: [facility], [address], [address] [place], [address], Nito Smallwood MD Received: 03/13/2021 at 06:28:00 QPT : [facility], [address], [address] [place], [address], Nito Smallwood MD Name Value Range Interpretation [...] copy faxed has been acknowledged. Queued to: [id number] ID Date Data Source [id number] 03/07/2021 09:19:00 AM EDT [facility] ([facility]) Name Value Range Interpretation Code Description Data Allegra rce(s) Supporting Document(s) Hemoglobin A1c/Hemoglobin.total in Blood 8.8 [facility] ([facility]) Glucose [Mass/volume] in Serum or Plasma 233 [facility] ([facility]) ID Date Data Source [id number] 02/04/2021 05:30:48 PM EDT Lab [facility] LABORATORY [address] [address]Mhd# Surgical Pathology ReportPatient Name: ORLANDO PERALESB: 5Accession #:[id number](s) ReceivedA: Antrum bxB: Gastric body bxClinical Diagnosis [...] 02/04/2021Electronically Signed Out By Christiano Em MD [facility] [place] [address] [id number] component performed at [facility], Histopathology, [address] [place] [address], [phone].Reported at [facility], [address] [place] [address], [phone]. This report may includeimmunohistochemical or in-situ hybridization results. Testing wasdeveloped and the performance characteristics determined by [facility] [employer] [place] [facility] as required by CLIA '88. The FDA hasdetermined that approval for specific use is not necessary for clinicaluse. The quality of Hematoxylin and Eosin stains and as applicable, forall immunohistochemical and/or special stains, including positive andnegative controls, were reviewed and considered appropriate.ICD codes K21.9CPT codesA: 51448F, 08782uP: 32092L Name Value Range Interpretation Code Description Data Allegra rce(s) Supporting Document(s) ID Date Data Source [id number] 01/28/2021 11:13:59 AM EDT [facility] NT INFORMATIONPatient MRN Name Date of Age Gend*PT [id number] Cecily Perales 1955 65 years F OPPT Location Admission Date/Time Visit ID [facility] [place] [facility] 10[facility] --- Bairon Melgar MD([id number]) EPI ID [facility] Admitting Provider [id number] Bairon Melgar MD([id number])Endoscopic Gastroduodenoscopy Procedure NotePatient: Cecily EffnerSurgery Date: January [...] rce(s) Supporting Document(s) ID Date Data Source [id number] 01/28/2021 10:45:52 AM EDT [facility] INFORMATIONPatient MRN Name Date of Age Gend*PT [id number] Cecily Perales 1955 65 years F OPPT Location Admission Date/Time Visit ID [facility] [place] 01/28/21 1021 --- Bairon Melgar MD([id number]) EPI ID [facility] Admitting Provider [id number] Bairon Melgar MD([id number])Pre-Procedure History and Physical:Past Medical History:Diagnosis Date CRI [...] rce(s) Supporting Document(s) ID Date Data Source [id number] 01/28/2021 10:43:38 AM EDT [facility] Name Value Range Interpretation Code Description Data Allegra rce(s) Supporting Document(s) POC NOVA GLU 133 mg/dL (70-99) H [facility] PERFORMED BY [facility] ID Date Data Source [id number] 01/23/2021 08:35:00 AM EDT [facility] Name Value Range Interpretation Code Description Data Allegra rce(s) Supporting Document(s) SARS coronavirus 2 RNA Not Detected [facility] [place] This lab was ordered by [facility] and reported by [facility]. ID Date Data Source [id number] 01/24/2021 02:10:17 PM EDT [facility] Name Value Range Interpretation Code Description Data Allegra rce(s) Supporting Document(s) SARS-COV-2 MARLEEN Lab [facility] Not DetectedReference range: Not Detecte d This nucleic acid amplification test was developed and its performance characteristics determined by [facility]. Nucleic acid amplification tests include RT-PCR and [...] detected) result in this assay. Performed At: [facility] [address] [place], [place] [id number] Miesha Hester PhD Ph:[phone] ID Date Data Source [id number] 10/23/2020 02:00:00 PM EST [facility] Name Value Range Interpretation Code Description Data Allegra rce(s) Supporting Document(s) SARS coronavirus 2 RNA Not Detected [facility] [place] This lab was ordered by [facility] and reported by [facility]. ID Date Data Source [id number] 07/31/2020 08:06:00 AM EST [facility] ([facility]) Name Value Range Interpretation Code Description Data Allegra rce(s) Supporting Document(s) Surgical pathology study Laboratory test result [facility] ([facility]) FINAL DIAGNOSIS A-Descending colon polyp, polypectomy: [...] MD 08/01/2020 1353 ID Date Data Source [id number] 07/31/2020 07:09:00 AM EST [facility] ([facility]) Name Value Range Interpretation Code Description Data Allegra rce(s) Supporting Document(s) Glucose [Mass/volume] in Capillary blood by Glucometer 220 mg/dL 80-115 Above high normal [facility] ([facility]) ID Date Data Source [id number] 07/26/2020 10:25:00 AM EDT [facility] Name Value Range Interpretation Code Description Data Allegra rce(s) Supporting Document(s) SARS coronavirus 2 RNA [facility] This lab was ordered by [facility] and reported by [facility]. ID Date Data Source [id number] 06/28/2020 10:00:00 PM EDT [facility] ([facility]) Name Value Range Interpretation Code Description Data Allegra rce(s) Supporting Document(s) Elastase.pancreatic [Mass/mass] in Stool Laboratory test result Normal (applies to non-numeric results) [facility] ([facility]) <content>Result Units: ug Elast./g</cont ent>
<content>Severe Pancreatic Insufficiency: <100</content>
<content>Moderate Pancreatic Insufficiency: 100 - 200</content>
<content>Normal: >200</content>
<content>Performed at: - [facility]</content>
<content>[address], [place] [id number]</content>
<content>Humanities Teacher: Dat Flores MD, Phone: [phone]</content>
<content></content> ID Date Data Source [id number] 06/27/2020 02:17:00 PM EDT [facility] ([facility] ) Name Value Range Interpretation Code Description Data Allegra rce(s) Supporting Document(s) Tissue transglutaminase IgA Ab [Units/volume] in Serum 3 U/mL 0-3 Normal (applies to non-numeric results) [facility] ([facility]) Negative 0 - 3 Weak Positive 4 - 10 Positive >10 . Tissue Transglutaminase (tTG) has been identified as the endomysial antigen. Studies have demonstr- ated that endomysial IgA antibodies have over 99% specificity for gluten sensitive enteropathy. Performed at: - [facility] [id number] Humanities Teacher: Keiry Munguia MD, Phone: [phone] ID Date Data Source [id number] 06/05/2020 04:15:00 PM EDT [facility] ([facility]) Name Value Range Interpretation Code Description Data Allegra rce(s) Supporting Document(s) Glucose [Mass/volume] in Serum or Plasma 256 [facility] ([facility]) Hemoglobin A1c/Hemoglobin.total in Blood 9.5 [facility] ([facility]) Procedure Social History Code Duration Value Status Description Data Source(s ) Smoking 04/30/2021 12:00:00 AM EDT Never Smoker completed Never S lizbet eCW1 ([facility]) Alcohol intake 04/09/2021 12:00:00 AM EDT Lifetime non-drinker (finding) completed Lifetime non-drinker (finding) [facility] Smoking 04/02/2021 12:00:00 AM EDT Never Smoker completed Never S lizbet eCW1 ([facility]) Smoking 04/02/2021 12:00:00 AM EDT Never Smoker completed Never S moker eCW1 ([facility]) Smoking 04/02/2021 12:00:00 AM EDT Never Smoker completed Never S moker eCW1 ([facility]) Smoking 04/02/2021 12:00:00 AM EDT Never Smoker completed Never S moker eCW1 ([facility]) Smoking 03/19/2021 12:00:00 AM EDT Never Smoker completed Never S moker eCW1 ([facility]) Alcohol intake 03/12/2021 12:00:00 AM EDT Lifetime non-drinker (finding) completed Lifetime non-drinker (finding) [facility] Tobacco use and exposure 01/24/2021 12:00:00 AM EDT Never used co mpleted Never used [facility] Smoking 01/24/2021 12:00:00 AM EDT Never smoker completed Never s moker [facility] Alcohol intake 01/24/2021 12:00:00 AM EDT Lifetime non-drinker (finding) completed Lifetime non-drinker (finding) [facility] Smoking 12/04/2020 12:00:00 AM EST Patient has never smoked co mpleted Patient has never smoked [facility] ([facility]) Smoking 11/20/2020 12:00:00 AM EST Never Smoker completed Never S moker eCW1 ([facility]) Smoking 11/20/2020 12:00:00 AM EST Never Smoker completed Never S moker eCW1 ([facility]) Smoking 08/21/2020 12:00:00 AM EST Never Smoker completed Never S moker eCW1 ([facility]) Smoking 08/21/2020 12:00:00 AM EST Never Smoker completed Never S moker eCW1 ([facility]) Smoking 08/21/2020 12:00:00 AM EST Never Smoker completed Never S moker eCW1 ([facility]) Smoking 08/21/2020 12:00:00 AM EST Never Smoker completed Never S moker eCW1 ([facility]) Smoking 08/21/2020 12:00:00 AM EST Never Smoker completed Never S moker eCW1 ([facility]) Smoking 08/21/2020 12:00:00 AM EST Never Smoker completed Never S moker eCW1 ([facility]) Smoking 08/21/2020 12:00:00 AM EST Never Smoker completed Never S moker eCW1 ([facility]) Smoking 08/21/2020 12:00:00 AM EST Never Smoker completed Never S moker eCW1 ([facility]) Smoking 08/21/2020 12:00:00 AM EST Never Smoker completed Never S moker eCW1 ([facility]) Smoking 08/21/2020 12:00:00 AM EST Never Smoker completed Never S moker eCW1 ([facility]) Smoking 07/31/2020 12:00:00 AM EST Never Smoker completed Never S moker eCW1 ([facility]) Smoking 07/18/2020 12:00:00 AM EDT Never Smoker completed Never S moker eCW1 ([facility]) Smoking 07/18/2020 12:00:00 AM EDT Never Smoker completed Never S moker eCW1 ([facility]) Smoking 07/18/2020 12:00:00 AM EDT Never Smoker completed Never S moker eCW1 ([facility]) Smoking 06/27/2020 12:00:00 AM EDT Never Smoker completed Never S moker eCW1 ([facility]) Vital Signs ID Date Data Source UNK Name Value Range Interpretation Code Description Data Source(s) Body weight 333.4 [lb_av] 333.4 [lb_av] eCW1 ([facility]) Body height 65 [in_i] 65 [in_i] eCW1 ([facility]) Body mass index (BMI) [Ratio] 55.47 kg/m2 55.47 kg/m2 eCW1 ([facility]) Heart rate 100 /min 100 /min eCW1 ([facility]) Respiratory rate 18 /min 18 /min eCW1 ([facility]) Body temperature 95.6 [degF] 95.6 [degF] eCW1 ( [facility]) Systolic blood pressure 140 mm[Hg] 140 mm[Hg] e CW1 ([facility]) Diastolic blood pressure 80 mm[Hg] 80 mm[Hg] eCW1 ([facility]) Systolic blood pressure 138 mm[Hg] 138 mm[Hg] [facility] Diastolic blood pressure 82 mm[Hg] 82 mm[Hg] [facility] Heart rate 84 /min 84 /min [facility] Body height 165.1 cm 165.1 cm [facility] Body weight 151.501 kg 151.501 kg [facility] Body mass index (BMI) [Ratio] 55.58 kg/m2 55.58 kg/m2 [facility] Oxygen saturation in Arterial blood by Pulse oximetry 92 % 92 % [facility] Body weight 334 [lb_av] 334 [lb_av] eCW1 (Counts include 234 beds at the [facility]) Body height 65 [in_i] 65 [in_i] eCW1 ([facility]) Body mass index (BMI) [Ratio] 55.57 kg/m2 55.57 kg/m2 W1 ([facility]) Heart rate 92 /min 92 /min eCW1 ([facility]) Respiratory rate 18 /min 18 /min eCW1 ([facility]) Body temperature 97.2 [degF] 97.2 [degF] eCW1 ( [facility]) Systolic blood pressure 126 mm[Hg] 126 mm[Hg] e CW1 ([facility]) Diastolic blood pressure 80 mm[Hg] 80 mm[Hg] eCW1 ([facility]) Body weight 333 [lb_av] 333 [lb_av] eCW1 (Counts include 234 beds at the [facility]) Body height 65 [in_i] 65 [in_i] eCW1 ([facility]) Body mass index (BMI) [Ratio] 55.41 kg/m2 55.41 kg/m2 [facility] ([facility]) Heart rate 96 /min 96 /min eCW1 ([facility]) Respiratory rate 18 /min 18 /min eCW1 ([facility]) Body temperature 96.9 [degF] 96.9 [degF] eCW1 ( [facility]) Systolic blood pressure 138 mm[Hg] 138 mm[Hg] e CW1 ([facility]) Diastolic blood pressure 84 mm[Hg] 84 mm[Hg] eCW1 ([facility]) Systolic blood pressure 126 mm[Hg] 126 mm[Hg] [facility] Diastolic blood pressure 90 mm[Hg] 90 mm[Hg] [facility] Heart rate 85 /min 85 /min [facility] Body height 165.1 cm 165.1 cm [facility] Body weight 152.409 kg 152.409 kg [facility] Body mass index (BMI) [Ratio] 55.91 kg/m2 55.91 kg/m2 [facility] Oxygen saturation in Arterial blood by Pulse oximetry 93 % 93 % [facility] Heart rate 90 /min 90 /min [facility] ([facility]) Body temperature 95.9 [degF] 95.9 [degF] [facility] ([facility]) Body height 66.4 [in_i] 66.4 [in_i] [facility] ([facility]) 5'6.40" Body weight 333.12 [lb_av] 333.12 [lb_av] MEDEN T ([facility]) Body mass index (BMI) [Ratio] 53.1 kg/m2 53.1 k g/m2 [facility] ([facility]) Oxygen saturation in Arterial blood by Pulse oximetry 95 % 95 % [facility] ([facility]) Systolic blood pressure 142 mm[Hg] 142 mm[Hg] M EDENT ([facility]) Diastolic blood pressure 86 mm[Hg] 86 mm[Hg] [facility] ([facility]) Respiratory rate 12 /min 12 /min [facility] ( [facility]) Body height 66 [in_i] 66 [in_i] [facility] ([facility]) 5'6" Body weight 325.00 [lb_av] 325.00 [lb_av] MEDEN T ([facility] ) Body mass index (BMI) [Ratio] 52.5 kg/m2 52.5 k g/m2 [facility] ([facility] ) [place] body weight 130 [lb_av] 130 [lb_av] MEDEN T ([facility] ) Systolic blood pressure 142 mm[Hg] 142 mm[Hg] [facility] Diastolic blood pressure 88 mm[Hg] 88 mm[Hg] [facility] Heart rate 78 /min 78 /min [facility] Body height 167.6 cm 167.6 cm [facility] Body weight 154.677 kg 154.677 kg [facility] Body mass index (BMI) [Ratio] 55.04 kg/m2 55.04 kg/m2 [facility] Oxygen saturation in Arterial blood by Pulse oximetry 95 % 95 % [facility] Systolic blood pressure 136 mm[Hg] 136 mm[Hg] M EDENT ([facility] ) Diastolic blood pressure 84 mm[Hg] 84 mm[Hg] [facility] ([facility] ) Heart rate 80 /min 80 /min [facility] ([facility] ) Body temperature 957.0 [degF] 957.0 [degF] MEDE NT ([facility] Body height 66.4 [in_i] 66.4 [in_i] [facility] ([facility] 5'6.40" Body weight 339.00 [lb_av] 339.00 [lb_av] MEDEN T ([facility] ) Body mass index (BMI) [Ratio] 54.1 kg/m2 54.1 k g/m2 [facility] ([facility] ) Oxygen saturation in Arterial blood by Pulse oximetry 98 % 98 % [facility] ([facility] ) Body mass index (BMI) [Ratio] 52.5 kg/m2 52.5 k g/m2 [facility] ([facility]) [place] body weight 130 [lb_av] 130 [lb_av] MEDEN T ([facility] ) Respiratory rate 12 /min 12 /min [facility] ( [facility] ) Body height 66 [in_i] 66 [in_i] [facility] ([facility] ) 5'6" Body weight 325.00 [lb_av] 325.00 [lb_av] MEDEN T ([facility] ) Body weight 340 [lb_av] 340 [lb_av] eCW1 (Counts include 234 beds at the [facility]) Body height 65 [in_i] 65 [in_i] eCW1 ([facility]) Body mass index (BMI) [Ratio] 56.57 kg/m2 56.57 kg/m2 eCW1 ([facility]) Heart rate 111 /min 111 /min eCW1 ([facility]) Respiratory rate 20 /min 20 /min eCW1 ([facility]) Body temperature 96.5 [degF] 96.5 [degF] eCW1 ( [facility]) Systolic blood pressure 130 mm[Hg] 130 mm[Hg] e CW1 ([facility]) Diastolic blood pressure 80 mm[Hg] 80 mm[Hg] eCW1 ([facility]) Body weight 340 [lb_av] 340 [lb_av] eCW1 (Counts include 234 beds at the [facility]) Body height 65 [in_i] 65 [in_i] eCW1 ([facility]) Body mass index (BMI) [Ratio] 56.57 kg/m2 56.57 kg/m2 eCW1 ([facility]) Heart rate 116 /min 116 /min eCW1 ([facility]) Respiratory rate 18 /min 18 /min eCW1 ([facility]) Body temperature 96.4 [degF] 96.4 [degF] eCW1 ( [facility]) Systolic blood pressure 128 mm[Hg] 128 mm[Hg] e CW1 ([facility]) Diastolic blood pressure 80 mm[Hg] 80 mm[Hg] eCW1 ([facility]) Body weight 345 [lb_av] 345 [lb_av] eCW1 (Counts include 234 beds at the [facility]) Body height 65 [in_i] 65 [in_i] eCW1 ([facility]) Body mass index (BMI) [Ratio] 57.40 kg/m2 57.40 kg/m2 eCW1 ([facility]) Heart rate 118 /min 118 /min eCW1 ([facility]) Respiratory rate 18 /min 18 /min eCW1 ([facility]) Body temperature 97.7 [degF] 97.7 [degF] eCW1 ( [facility]) Systolic blood pressure 152 mm[Hg] 152 mm[Hg] e CW1 ([facility]) Diastolic blood pressure 90 mm[Hg] 90 mm[Hg] eCW1 (Formerly [facility]) Body mass index (BMI) [Ratio] 54.1 kg/m2 54.1 k g/m2 [facility] ([facility]) Diastolic blood pressure 84 mm[Hg] 84 mm[Hg] [facility] ([facility]) Heart rate 71 /min 71 /min [facility] ([facility]) Systolic blood pressure 126 mm[Hg] 126 mm[Hg] M EDENT ([facility]) Body height 66.4 [in_i] 66.4 [in_i] [facility] ([facility]) 5'6.40" Body weight 339.25 [lb_av] 339.25 [lb_av] MEDEN T ([facility]) Oxygen saturation in Arterial blood by Pulse oximetry 96 % 96 % [facility] ([facility]) Patient Treatment Plan of Care Planned Activity Planned Date Details Description Data Source (s) Flonase Allergy Relief 50 MCG/ACT 04/02/2021 12:00:00 AM EDT eCW1 (Formerly [facility]) Flonase Allergy Relief 50 MCG/ACT 04/02/2021 12:00:00 AM EDT eCW1 (Formerly [facility]) fluticasone (FLONASE) 50 MCG/ACT nasal spray 04/02/2021 12:00:00 AM EDT [facility] Flonase Allergy Relief 50 MCG/ACT 04/02/2021 12:00:00 AM EDT eCW1 (Formerly [facility]) Flonase Allergy Relief 50 MCG/ACT 04/02/2021 12:00:00 AM EDT eCW1 (Formerly [facility]) Amitriptyline Hydrochloride 10 MG Oral Tablet 03/19/2021 12:00:00 A M EDT eCW1 (Formerly [facility]) clopidogrel 75 MG Oral Tablet 03/12/2021 12:00:00 AM EDT [facility] Cholecalciferol 1000 UNT Oral Tablet 01/15/2021 12:00:00 AM EDT [facility] latanoprost 0.05 MG/ML Ophthalmic Solution 01/10/2021 12:00:00 AM E DT [facility] carvedilol 25 MG Oral Tablet 01/04/2021 12:00:00 AM EDT [facility] Magnesium Oxide 400 MG Oral Tablet 01/03/2021 12:00:00 AM EDT [facility] 3 ML Insulin Lispro 100 UNT/ML Pen Injector [Humalog] 01/02/2021 12:00:00 AM EDT [facility] cinacalcet 30 MG Oral Tablet 01/02/2021 12:00:00 AM EDT [facility] glimepiride 4 MG Oral Tablet 12/03/2020 12:00:00 AM EST [facility] Simvastatin 80 MG Oral Tablet 12/01/2020 12:00:00 AM EST [facility] gabapentin 600 MG Oral Tablet 11/20/2020 12:00:00 AM EST [facility] 3 ML liraglutide 6 MG/ML Pen Injector [Victoza] 11/17/2020 12:00:00 AM EST [facility] Ergocalciferol 99022 UNT Oral Capsule 11/10/2020 12:00:00 AM EST [facility] Zofran ODT 4 MG 07/18/2020 12:00:00 AM EDT eCW1 (Formerly [facility]) Zofran ODT 4 MG 07/18/2020 12:00:00 AM EDT eCW1 (Formerly [facility]) Zofran ODT 4 MG 07/18/2020 12:00:00 AM EDT eCW1 (Formerly [facility]) Oxymetazoline HCl (NASAL SPRAY LONG ACTING NA) [facility] 60 ACTUAT exenatide 0.01 MG/ACTUAT Pen Injector [Byetta] [facility]
[2021-07-26 14:19] VITALS: BP 144/93
== END 2021-07-26 14:26 | disposition home or self-care (01) ==
LOC: M ED 09:26
DX: M25.561 Pain in right knee (principal); M25.562 Pain in left knee; G89.29 Other chronic pain; I12.9 Hypertensive chronic kidney disease with stage 1 through stage 4 chronic kidney disease, or unspecified chronic kidney disease; E78.70 Disorder of bile acid and cholesterol metabolism, unspecified; G47.30 Sleep apnea, unspecified; Z79.899 Other long term (current) drug therapy; Z79.4 Long term (current) use of insulin; Z79.51 Long term (current) use of inhaled steroids

== ENCOUNTER → 2021-08-21 | Outpatient (CLI) | payer MEDICARE, MEDICAID ==
[2021-08-21 12:59] LABS: BASO % 0.5 % (0.0-1.0); EOS # 0.5 10^3/uL (0.0-0.5); EOS % 5.4 % (0.0-3.0); HEMATOCRIT 40.7 % (36.0-47.0); HEMOGLOBIN 12.6 g/dl (12.0-15.5); LYMPH # 2.5 10^3/uL (1.5-5.0); LYMPH % 29.2 % (24.0-44.0); MEAN CORPUSCULAR HEMOGLOBIN 28.6 pg (27.0-33.0); MEAN CORPUSCULAR VOLUME 92.3 fl (80.0-96.0); MONO # 0.6 10^3/uL (0.0-0.8); MONO % 7.5 % (2.0-8.0); NEUTROPHILS # 4.9 10^3/uL (1.5-8.5); NEUTROPHILS % 57.3 % (36.0-66.0); PLATELET COUNT, AUTOMATED 189 10^3/uL (150-450); RED BLOOD COUNT 4.41 10^6/uL (4.00-5.40); WHITE BLOOD COUNT 8.5 10^3/uL (4.0-10.0)
[2021-08-21 13:12] LABS: INR 1.06; PROTHROMBIN TIME 14.2 SECONDS (12.7-14.5)
[2021-08-21 13:28] LABS: HEMOGLOBIN A1c 7.6 %
[2021-08-21 13:29] LABS: BILIRUBIN,TOTAL 0.3 MG/DL (0.2-1.0); CALCIUM LEVEL 8.5 MG/DL (8.8-10.2); CREATININE FOR GFR 1.33 MG/DL (0.55-1.30); GLOMERULAR FILTRATION RATE 42.5 (>45); POTASSIUM SERUM 4.4 MEQ/L (3.5-5.1); TOTAL PROTEIN 7.2 GM/DL (6.4-8.2)
== END ==
LOC: M PLALAB 11:08
PROVIDERS: ATTEND Family Medicine
DX: E11.22 Type 2 diabetes mellitus with diabetic chronic kidney disease (principal)

== ENCOUNTER → 2021-09-13 | Outpatient (CLI) | payer MEDICARE, MEDICAID ==
[~2021-09-13] MED LIST changes: +FLUO-96 PO; -FLUO20CA20 PO; +LOSA25TA13; +LOSA25TA13 PO; -LOSA25TA14; -LOSA25TA14 PO; +OMEP-173 PO; -OMEP-218 PO
[2021-09-13 11:04] LABS: BASO # 0.1 10^3/uL (0.0-0.2); BASO % 0.5 % (0.0-1.0); EOS # 0.3 10^3/uL (0.0-0.5); EOS % 3.4 % (0.0-3.0); HEMATOCRIT 42.1 % (36.0-47.0); LYMPH # 2.6 10^3/uL (1.5-5.0); LYMPH % 27.1 % (24.0-44.0); MEAN CORPUSCULAR HEMOGLOBIN 28.9 pg (27.0-33.0); MEAN CORPUSCULAR HGB CONC 30.9 g/dl (32.0-36.5); MEAN CORPUSCULAR VOLUME 93.6 fl (80.0-96.0); MONO # 0.9 10^3/uL (0.0-0.8); MONO % 9.1 % (2.0-8.0); NEUTROPHILS # 5.7 10^3/uL (1.5-8.5); NEUTROPHILS % 59.4 % (36.0-66.0); PLATELET COUNT, AUTOMATED 195 10^3/uL (150-450); WHITE BLOOD COUNT 9.6 10^3/uL (4.0-10.0)
[2021-09-13 11:31] LABS: ALBUMIN 3.3 GM/DL (3.2-5.2); BILIRUBIN,TOTAL 0.3 MG/DL (0.2-1.0); CALCIUM LEVEL 9.3 MG/DL (8.8-10.2); CREATININE FOR GFR 2.19 MG/DL (0.55-1.30); GLOMERULAR FILTRATION RATE 23.9 (>45); POTASSIUM SERUM 4.8 MEQ/L (3.5-5.1); TOTAL PROTEIN 7.1 GM/DL (6.4-8.2); VALPROIC ACID (DEPAKOTE) 43.9 UG/ML (50.0-100.0)
== END ==
LOC: M LAB 10:33
PROVIDERS: ATTEND Psychiatry & Neurology Neurology
DX: G43.909 Migraine, unspecified, not intractable, without status migrainosus (principal)

== ENCOUNTER → 2021-12-05 | Outpatient (REF) | payer MEDICARE, MEDICAID ==
[2021-12-05 16:57] LABS: CREATININE, URINE 57.6 MG/DL; MAU/CREAT RATIO 487.8 MCG/MG (0.0-30.0)
== END ==
LOC: M LAB REF 15:41
PROVIDERS: ATTEND Nurse Practitioner Family
DX: E11.22 Type 2 diabetes mellitus with diabetic chronic kidney disease (principal)

== ENCOUNTER → 2022-01-09 | Outpatient (CLI) | payer MEDICARE, MEDICAID ==
[2022-01-09 13:37] LABS: BASO # 0.1 10^3/uL (0.0-0.2); BASO % 0.9 % (0.0-1.0); EOS # 0.5 10^3/uL (0.0-0.5); EOS % 7.4 % (0.0-3.0); HEMATOCRIT 36.8 % (36.0-47.0); HEMOGLOBIN 11.4 g/dl (12.0-15.5); LYMPH # 2.1 10^3/uL (1.5-5.0); LYMPH % 33.1 % (24.0-44.0); MEAN CORPUSCULAR HEMOGLOBIN 29.9 pg (27.0-33.0); MEAN CORPUSCULAR VOLUME 96.6 fl (80.0-96.0); MONO # 0.6 10^3/uL (0.0-0.8); MONO % 9.4 % (2.0-8.0); NEUTROPHILS # 3.2 10^3/uL (1.5-8.5); PLATELET COUNT, AUTOMATED 188 10^3/uL (150-450); RED BLOOD COUNT 3.81 10^6/uL (4.00-5.40); WHITE BLOOD COUNT 6.5 10^3/uL (4.0-10.0)
[2022-01-09 13:41] LABS: HEMATOCRIT 36.5 % (36.0-47.0)
[2022-01-09 14:06] LABS: ALBUMIN 3.2 GM/DL (3.2-5.2); BILIRUBIN,TOTAL 0.6 MG/DL (0.2-1.0); CALCIUM LEVEL 8.8 MG/DL (8.8-10.2); CREATININE FOR GFR 1.69 MG/DL (0.55-1.30); GLOMERULAR FILTRATION RATE 32.2 (>45); MAGNESIUM LEVEL 1.2 MG/DL (1.8-2.4); PHOSPHORUS LEVEL 2.2 MG/DL (2.5-4.9); POTASSIUM SERUM 4.4 MEQ/L (3.5-5.1); TOTAL PROTEIN 6.6 GM/DL (6.4-8.2)
[2022-01-09 14:30] LABS: TOTAL 25(OH) VITAMIN D 33.5 NG/ML (30.0-100.0)
[2022-01-09 14:36] LABS: HEMOGLOBIN A1c 7.5 %
== END ==
LOC: M PLALAB 10:09
PROVIDERS: ATTEND Surgery
DX: K91.2 Postsurgical malabsorption, not elsewhere classified (principal); E55.9 Vitamin D deficiency, unspecified; Z98.84 Bariatric surgery status

== ENCOUNTER 2022-01-11 21:19 | Emergency (ER) | payer MEDICARE, MEDICAID ==
[~2022-01-11] VITALS: Ht 165.1 cm; Wt 13.9 kg
[2022-01-11] MEDS ORDERED: CINA30TA5 (21:54)
[2022-01-11] MEDS ORDERED: AMIT50TA (21:54)
[2022-01-11] MEDS ORDERED: ONDA4TAB6 (21:54)
[2022-01-11] MEDS ORDERED: NITROGLYCERIN 0.4 MG SUBL TABLET SL STA (22:06)
[2022-01-11] MEDS ORDERED: ASPIRIN 81 MG CHEW TABLET PO ONE (22:10)
[2022-01-11 22:16] LABS: BASO % 0.6 % (0.0-1.0); EOS # 0.4 10^3/uL (0.0-0.5); EOS % 6.2 % (0.0-3.0); LYMPH % 29.6 % (24.0-44.0); MEAN CORPUSCULAR HEMOGLOBIN 30.4 pg (27.0-33.0); MEAN CORPUSCULAR HGB CONC 31.4 g/dl (32.0-36.5); MEAN CORPUSCULAR VOLUME 96.7 fl (80.0-96.0); MONO # 0.7 10^3/uL (0.0-0.8); MONO % 9.8 % (2.0-8.0); NEUTROPHILS # 3.5 10^3/uL (1.5-8.5); NEUTROPHILS % 53.5 % (36.0-66.0); PLATELET COUNT, AUTOMATED 155 10^3/uL (150-450); RED BLOOD COUNT 3.62 10^6/uL (4.00-5.40); WHITE BLOOD COUNT 6.6 10^3/uL (4.0-10.0)
[2022-01-11 22:27] VITALS: BP 144/75
[2022-01-11 22:42] LABS: CK-MB VALUE MASS 3.1 NG/ML (<3.6); MB/CK RELATIVE INDEX 2.9 (< OR =4)
[2022-01-11 23:03] LABS: CALCIUM LEVEL 9.1 MG/DL (8.8-10.2); CREATININE FOR GFR 1.5 MG/DL (0.55-1.30); POTASSIUM SERUM 4.5 MEQ/L (3.5-5.1)
[2022-01-11] MEDS ORDERED: ISOVUE-370 76% 100ML VIAL As Ordered ONE (23:07)
[2022-01-11 23:45] LABS: CK-MB VALUE MASS 2.4 NG/ML (<3.6); MB/CK RELATIVE INDEX 2.09 (< OR =4)
[2022-01-12 01:00] VITALS: BP 123/78
== END 2022-01-12 01:31 | disposition home or self-care (01) ==
LOC: M ED 21:19
DX: R07.89 Other chest pain (principal); R06.00 Dyspnea, unspecified; E11.9 Type 2 diabetes mellitus without complications; I12.9 Hypertensive chronic kidney disease with stage 1 through stage 4 chronic kidney disease, or unspecified chronic kidney disease; N18.9 Chronic kidney disease, unspecified; E55.9 Vitamin D deficiency, unspecified; E78.5 Hyperlipidemia, unspecified; F33.9 Major depressive disorder, recurrent, unspecified; K21.9 Gastro-esophageal reflux disease without esophagitis; G25.81 Restless legs syndrome; G47.33 Obstructive sleep apnea (adult) (pediatric); H40.9 Unspecified glaucoma; M85.9 Disorder of bone density and structure, unspecified; Z98.84 Bariatric surgery status; Z79.899 Other long term (current) drug therapy; Z79.4 Long term (current) use of insulin
CPT/HCPCS: 36415; 71045; 71275; 80048; 82550; 82553; 83880; 84484; 85025; 85379; 93005; 93041; 93970; 94760; 99285; Q9967

== ENCOUNTER → 2022-03-06 | Outpatient (CLI) | payer MEDICARE, MEDICAID ==
[~2022-03-06] MED LIST changes: +AMIT50TA; +CINA30TA5; +ONDA4TAB6
== END ==
LOC: M WHC 10:36
PROVIDERS: ATTEND Family Medicine
DX: Z12.31 Encounter for screening mammogram for malignant neoplasm of breast (principal); Z86.018 Personal history of other benign neoplasm

== ENCOUNTER 2022-06-07 10:27 | Emergency (ER) | payer MEDICARE, MEDICAID ==
[~2022-06-07 10:27] MED LIST changes: +NYST-13 EXT; -NYST10CR EXT
[2022-06-07] MEDS ORDERED: NS 1,000 ML IV ONE ×2 (11:15→14:45)
[2022-06-07 11:42] LABS: VENOUS BASE EXCESS 0.4 (-2.0-2.0); VENOUS HCO3 24.4 MEQ/L (23.0-27.0); VENOUS O2 SATURATION 98.9 % (60.0-80.0); VENOUS PARTIAL PRESSURE CO2 37.5 mmHg (38.0-50.0); VENOUS PARTIAL PRESSURE O2 145.7 mmHg (30.0-50.0); VENOUS PH 7.432 UNITS (7.330-7.430); VENOUS STANDARD HCO3 24.9 MEQ/L; VENOUS TOTAL CO2 25.6 MEQ/L (24.0-28.0)
[2022-06-07 11:52] LABS: BASO % 0.5 % (0.0-1.0); EOS # 0.1 10^3/uL (0.0-0.5); EOS % 2.3 % (0.0-3.0); HEMATOCRIT 38.3 % (36.0-47.0); HEMOGLOBIN 12.7 g/dl (12.0-15.5); LYMPH # 2.1 10^3/uL (1.5-5.0); LYMPH % 34.2 % (24.0-44.0); MEAN CORPUSCULAR HEMOGLOBIN 30.5 pg (27.0-33.0); MEAN CORPUSCULAR HGB CONC 33.2 g/dl (32.0-36.5); MEAN CORPUSCULAR VOLUME 91.8 fl (80.0-96.0); MONO # 0.5 10^3/uL (0.0-0.8); MONO % 8.9 % (2.0-8.0); NEUTROPHILS # 3.3 10^3/uL (1.5-8.5); NEUTROPHILS % 53.8 % (36.0-66.0); PLATELET COUNT, AUTOMATED 164 10^3/uL (150-450); RED BLOOD COUNT 4.17 10^6/uL (4.00-5.40); WHITE BLOOD COUNT 6.1 10^3/uL (4.0-10.0)
[2022-06-07 12:19] LABS: RSV AMPLIFICATION NEGATIVE (NEGATIVE)
[2022-06-07 12:23] LABS: ALBUMIN 3.1 GM/DL (3.2-5.2); BILIRUBIN,DIRECT 0.2 MG/DL (0.0-0.2); CALCIUM LEVEL 9.5 MG/DL (8.8-10.2); CREATININE FOR GFR 1.77 MG/DL (0.55-1.30); GLOMERULAR FILTRATION RATE 30.5 (>45); POTASSIUM SERUM 3.9 MEQ/L (3.5-5.1); TOTAL PROTEIN 6.9 GM/DL (6.4-8.2); VALPROIC ACID (DEPAKOTE) 37.4 UG/ML (50.0-100.0)
[2022-06-07 17:38] VITALS: BP 126/61
== END 2022-06-07 18:14 | disposition home or self-care (01) ==
LOC: M ED 10:27 → EDBD 10:27 → M ED 18:14
DX: E11.65 Type 2 diabetes mellitus with hyperglycemia (principal); E86.0 Dehydration; I10 Essential (primary) hypertension; N18.30 Chronic kidney disease, stage 3 unspecified; E78.5 Hyperlipidemia, unspecified; F32.A Depression, unspecified; G47.33 Obstructive sleep apnea (adult) (pediatric); M10.9 Gout, unspecified; Z99.89 Dependence on other enabling machines and devices; Z86.711 Personal history of pulmonary embolism; Z86.718 Personal history of other venous thrombosis and embolism; Z98.84 Bariatric surgery status; Z79.899 Other long term (current) drug therapy; Z79.84 Long term (current) use of oral hypoglycemic drugs; Z79.4 Long term (current) use of insulin

== ENCOUNTER 2022-06-24 08:24 | Emergency (ER) | payer MEDICARE, MEDICAID ==
[~2022-06-24] VITALS: Ht 165.1 cm; Wt 128.6 kg
[2022-06-24] MEDS ORDERED: ACETAMINOPHEN 325 MG TAB PO ONE (09:25)
[2022-06-24] MEDS ORDERED: LIDOCAINE 5% (LIDODERM) PATCH TD ONE (09:25)
[2022-06-24 10:01] LABS: BASO % 0.2 % (0.0-1.0); HEMOGLOBIN 13.1 g/dl (12.0-15.5); LYMPH # 1.1 10^3/uL (1.5-5.0); LYMPH % 10.1 % (24.0-44.0); MEAN CORPUSCULAR HEMOGLOBIN 30.4 pg (27.0-33.0); MEAN CORPUSCULAR VOLUME 95.1 fl (80.0-96.0); MONO # 1.1 10^3/uL (0.0-0.8); MONO % 10.8 % (2.0-8.0); NEUTROPHILS # 8.2 10^3/uL (1.5-8.5); NEUTROPHILS % 78.5 % (36.0-66.0); PLATELET COUNT, AUTOMATED 137 10^3/uL (150-450); RED BLOOD COUNT 4.31 10^6/uL (4.00-5.40); WHITE BLOOD COUNT 10.4 10^3/uL (4.0-10.0)
[2022-06-24 10:21] LABS: ERYTHROCYTE SEDIMENTATION RATE 19 mm/hr (0-30)
[2022-06-24 10:40] LABS: C REACTIVE PROTEIN QUANTITATIV 6.2 MG/DL (0.00-0.30); CALCIUM LEVEL 9.2 MG/DL (8.8-10.2); CREATININE FOR GFR 1.41 MG/DL (0.55-1.30); GLOMERULAR FILTRATION RATE 39.6 (>45); POTASSIUM SERUM 4.6 MEQ/L (3.5-5.1)
[2022-06-24] MEDS ORDERED: oxyCODONE 5MG TAB PO ONE (11:30)
[2022-06-24] MEDS ORDERED: PERC5TAB12 PO (13:55)
[2022-06-24 14:16] VITALS: BP 112/68
[2022-06-24] MEDS ORDERED: **NOTE PATIENT COMMENT** MISC XX SCH (21:00)
== END 2022-06-24 19:57 | disposition home or self-care (01) ==
LOC: M ED 08:24 → EDBD 08:24 → M ED 19:57
DX: M17.12 Unilateral primary osteoarthritis, left knee (principal); Z79.899 Other long term (current) drug therapy; Z79.891 Long term (current) use of opiate analgesic; Z79.4 Long term (current) use of insulin; Z98.84 Bariatric surgery status

== ENCOUNTER → 2022-06-28 | Outpatient (CLI) | payer MEDICARE, MEDICAID ==
[~2022-06-28] MED LIST changes: +PERC5TAB12 PO
[2022-06-28 12:46] LABS: BASO % 0.6 % (0.0-1.0); EOS # 0.3 10^3/uL (0.0-0.5); EOS % 4.8 % (0.0-3.0); HEMATOCRIT 37.6 % (36.0-47.0); HEMOGLOBIN 11.9 g/dl (12.0-15.5); LYMPH % 29.1 % (24.0-44.0); MEAN CORPUSCULAR HEMOGLOBIN 30.6 pg (27.0-33.0); MEAN CORPUSCULAR HGB CONC 31.6 g/dl (32.0-36.5); MEAN CORPUSCULAR VOLUME 96.7 fl (80.0-96.0); MONO # 0.5 10^3/uL (0.0-0.8); MONO % 7.9 % (2.0-8.0); NEUTROPHILS # 3.9 10^3/uL (1.5-8.5); NEUTROPHILS % 57.5 % (36.0-66.0); PLATELET COUNT, AUTOMATED 156 10^3/uL (150-450); RED BLOOD COUNT 3.89 10^6/uL (4.00-5.40); WHITE BLOOD COUNT 6.7 10^3/uL (4.0-10.0)
[2022-06-28 13:39] LABS: ALBUMIN 2.6 GM/DL (3.2-5.2); BILIRUBIN,TOTAL 0.4 MG/DL (0.2-1.0); CALCIUM LEVEL 9.1 MG/DL (8.8-10.2); CREATININE FOR GFR 1.45 MG/DL (0.55-1.30); GLOMERULAR FILTRATION RATE 38.3 (>45); MAGNESIUM LEVEL 1.4 MG/DL (1.8-2.4); PERCENT SATURATION 14.4 % (13.2-45.0); POTASSIUM SERUM 3.8 MEQ/L (3.5-5.1); TOTAL PROTEIN 6.4 GM/DL (6.4-8.2)
[2022-06-28 13:46] LABS: HEMOGLOBIN A1c 7.6 %
[2022-06-30 09:41] LABS: TOTAL 25(OH) VITAMIN D 39.5 NG/ML (30.0-100.0)
== END ==
LOC: M LAB 12:05
PROVIDERS: ATTEND Physician Assistant Surgical
DX: K91.2 Postsurgical malabsorption, not elsewhere classified (principal); E55.9 Vitamin D deficiency, unspecified; Z98.84 Bariatric surgery status; Z86.39 Personal history of other endocrine, nutritional and metabolic disease

== ENCOUNTER → 2022-08-18 | Outpatient (REF) | payer MEDICARE, MEDICAID | LOC: M LAB REF 17:24 | PROVIDERS: ATTEND Nurse Practitioner Family | DX: N39.0 Urinary tract infection, site not specified (principal) ==

== ENCOUNTER 2022-12-16 17:31 | Emergency (ER) | payer MEDICARE, MEDICAID ==
[~2022-12-16] VITALS: Ht 165.1 cm; Wt 109.1 kg
[2022-12-16] MEDS ORDERED: TRAM50TA2 (17:51)
[2022-12-16 18:01] VITALS: BP 151/80
[2022-12-16 18:29] LABS: BASO # 0.1 10^3/uL (0.0-0.2); BASO % 0.7 % (0.0-1.0); EOS # 0.3 10^3/uL (0.0-0.5); EOS % 4.3 % (0.0-3.0); HEMATOCRIT 36.8 % (36.0-47.0); LYMPH % 39.3 % (24.0-44.0); MEAN CORPUSCULAR HEMOGLOBIN 30.7 pg (27.0-33.0); MEAN CORPUSCULAR HGB CONC 32.6 g/dl (32.0-36.5); MEAN CORPUSCULAR VOLUME 94.1 fl (80.0-96.0); MONO # 0.8 10^3/uL (0.0-0.8); MONO % 9.9 % (2.0-8.0); NEUTROPHILS # 3.5 10^3/uL (1.5-8.5); NEUTROPHILS % 45.7 % (36.0-66.0); PLATELET COUNT, AUTOMATED 183 10^3/uL (150-450); RED BLOOD COUNT 3.91 10^6/uL (4.00-5.40); WHITE BLOOD COUNT 7.6 10^3/uL (4.0-10.0)
[2022-12-16] MEDS ORDERED: METOCLOPRAMIDE INJ 10MG/2ML VIAL IV ONE (18:40)
[2022-12-16] MEDS ORDERED: NS 1,000 ML IV SCH (18:45)
[2022-12-16 18:51] LABS: CALCIUM LEVEL 8.6 MG/DL (8.3-10.6); CREATININE FOR GFR 1.03 MG/DL (0.55-1.30); GLOMERULAR FILTRATION RATE 56.9 (>45); POTASSIUM SERUM 3.5 MMOL/L (3.5-5.1)
[2022-12-16 19:00] LABS: VALPROIC ACID (DEPAKOTE) 18.6 UG/ML (50.0-100.0)
[2022-12-16] MEDS ORDERED: DEXTROSE 50% 50ML SYRINGE IV STA (19:10)
[2022-12-16 20:23] VITALS: O2SAT 100
== END 2022-12-16 21:42 | disposition home or self-care (01) ==
LOC: EDBD 17:31 → M ED 17:31
DX: R51.9 Headache, unspecified (principal); E11.65 Type 2 diabetes mellitus with hyperglycemia; I10 Essential (primary) hypertension; G47.33 Obstructive sleep apnea (adult) (pediatric); K21.9 Gastro-esophageal reflux disease without esophagitis; E78.5 Hyperlipidemia, unspecified; M10.9 Gout, unspecified; E55.9 Vitamin D deficiency, unspecified; H40.9 Unspecified glaucoma; Z98.84 Bariatric surgery status; Z86.718 Personal history of other venous thrombosis and embolism; Z79.899 Other long term (current) drug therapy
CPT/HCPCS: 70450; 80048; 80164; 85025; 96361; 96374; 96375; 99284; J2765

== ENCOUNTER 2023-04-22 21:55 | Emergency (ER) | payer MEDICARE, MEDICAID ==
[~2023-04-22] VITALS: Ht 165.1 cm; Wt 122.0 kg
[~2023-04-22 21:55] MED LIST changes: +LOPE1CAP5 PO; -ROPI1TAB3 PO; +ROPI1TAB73 PO; +TRAM50TA2
[2023-04-22 22:16] VITALS: BP 128/68; TEMP 98.4; O2SAT 97
[2023-04-22 22:53] LABS: BASO # 0.1 10^3/uL (0.0-0.2); BASO % 0.8 % (0.0-1.0); EOS # 0.3 10^3/uL (0.0-0.5); EOS % 3.9 % (0.0-3.0); HEMATOCRIT 36.9 % (36.0-47.0); HEMOGLOBIN 11.8 g/dl (12.0-15.5); LYMPH # 2.8 10^3/uL (1.5-5.0); LYMPH % 37.1 % (24.0-44.0); MEAN CORPUSCULAR HEMOGLOBIN 30.6 pg (27.0-33.0); MEAN CORPUSCULAR VOLUME 95.6 fl (80.0-96.0); MONO # 0.8 10^3/uL (0.0-0.8); MONO % 10.8 % (2.0-8.0); NEUTROPHILS # 3.5 10^3/uL (1.5-8.5); NEUTROPHILS % 47.3 % (36.0-66.0); PLATELET COUNT, AUTOMATED 171 10^3/uL (150-450); RED BLOOD COUNT 3.86 10^6/uL (4.00-5.40); WHITE BLOOD COUNT 7.4 10^3/uL (4.0-10.0)
[2023-04-22] MEDS ORDERED: DEXTROSE 50% 50ML SYRINGE IV STA (23:09)
[2023-04-22] MEDS ORDERED: D5W/0.45% SODIUM CHLORIDE 1,000 ML IV SCH (23:10)
[2023-04-22] MEDS ORDERED: DEXTROSE 50% 50ML VIAL As Ordered ONE (23:11)
[2023-04-22] MEDS ORDERED: DEXTROSE 50% 50ML SYRINGE As Ordered ONE (23:12)
[2023-04-22 23:18] LABS: CALCIUM LEVEL 8.2 MG/DL (8.3-10.6); CREATININE FOR GFR 1.57 MG/DL (0.55-1.30); GLOMERULAR FILTRATION RATE 34.9 (>45); POTASSIUM SERUM 3.9 MMOL/L (3.5-5.1)
[2023-04-22 23:20] LABS: THYROID STIMULATING HORMONE 2.874 uIU/ML (0.55-4.78)
== END 2023-04-23 03:45 | disposition left against medical advice (07) ==
LOC: EDBD 21:55 → M ED 21:55 → EDUNIT# 21:55 → M ED 04-23 03:45
DX: E11.649 Type 2 diabetes mellitus with hypoglycemia without coma (principal); E11.39 Type 2 diabetes mellitus with other diabetic ophthalmic complication; I10 Essential (primary) hypertension; E78.5 Hyperlipidemia, unspecified; K21.9 Gastro-esophageal reflux disease without esophagitis; Z98.84 Bariatric surgery status; F17.200 Nicotine dependence, unspecified, uncomplicated; Z79.899 Other long term (current) drug therapy; Z79.4 Long term (current) use of insulin

== ENCOUNTER 2023-04-27 19:26 | Emergency (ER) | payer MEDICARE, MEDICAID ==
[~2023-04-27] VITALS: Ht 165.1 cm; Wt 120.3 kg
[2023-04-28] MEDS ORDERED: LASI20TA3 PO (05:44)
[2023-04-28 06:00] VITALS: BP 156/82; TEMP 96.2; O2SAT 100
== END 2023-04-28 06:11 | disposition home or self-care (01) ==
LOC: M ED 19:26
DX: R22.41 Localized swelling, mass and lump, right lower limb (principal); I11.9 Hypertensive heart disease without heart failure; I25.10 Atherosclerotic heart disease of native coronary artery without angina pectoris; I25.2 Old myocardial infarction; E11.9 Type 2 diabetes mellitus without complications; Z79.4 Long term (current) use of insulin; Z86.718 Personal history of other venous thrombosis and embolism; Z86.711 Personal history of pulmonary embolism; N18.30 Chronic kidney disease, stage 3 unspecified; G25.81 Restless legs syndrome; K21.9 Gastro-esophageal reflux disease without esophagitis; Z79.899 Other long term (current) drug therapy

== ENCOUNTER → 2023-05-05 | Outpatient (REF) | payer MEDICARE, MEDICAID ==
[~2023-05-05] MED LIST changes: -GABA-283 PO; +GABA-284 PO; +LASI20TA3 PO
[2023-05-05 18:13] LABS: CREATININE,RANDOM URINE 85.9 MG/DL
[2023-05-05 18:15] LABS: TOTAL PROTEIN,RANDOM URINE 151.4 MG/DL (0.0-14.0)
== END ==
LOC: M LAB REF 17:13
PROVIDERS: ATTEND Nurse Practitioner Family
DX: R80.9 Proteinuria, unspecified (principal)

== ENCOUNTER 2023-06-04 11:38 | Emergency (ER) | payer MEDICARE, MEDICAID ==
[~2023-06-04] VITALS: Ht 165.1 cm; Wt 111.2 kg
[~2023-06-04 11:38] MED LIST changes: +MECL-209 PO; -MECL1TAB31 PO
[2023-06-04] MEDS ORDERED: MECL-86 PO (12:03)
[2023-06-04] MEDS ORDERED: ISOVUE-370 76% 100ML VIAL As Ordered ONE (12:11)
[2023-06-04 12:30] LABS: BASO # 0.1 10^3/uL (0.0-0.2); BASO % 0.7 % (0.0-1.0); EOS # 0.3 10^3/uL (0.0-0.5); EOS % 3.2 % (0.0-3.0); HEMATOCRIT 43.8 % (36.0-47.0); HEMOGLOBIN 14.5 g/dl (12.0-15.5); LYMPH # 2.9 10^3/uL (1.5-5.0); LYMPH % 32.1 % (24.0-44.0); MEAN CORPUSCULAR HEMOGLOBIN 30.7 pg (27.0-33.0); MEAN CORPUSCULAR HGB CONC 33.1 g/dl (32.0-36.5); MEAN CORPUSCULAR VOLUME 92.6 fl (80.0-96.0); MONO # 0.9 10^3/uL (0.0-0.8); MONO % 9.4 % (2.0-8.0); NEUTROPHILS % 54.4 % (36.0-66.0); PLATELET COUNT, AUTOMATED 191 10^3/uL (150-450); RED BLOOD COUNT 4.73 10^6/uL (4.00-5.40); WHITE BLOOD COUNT 9.2 10^3/uL (4.0-10.0)
[2023-06-04 12:52] LABS: INR 1.18; PROTHROMBIN TIME 14.7 SECONDS (12.5-14.5)
[2023-06-04 12:55] LABS: CREATININE FOR GFR 1.59 MG/DL (0.55-1.30); GLOMERULAR FILTRATION RATE 34.4 (>45); POTASSIUM SERUM 4.2 MMOL/L (3.5-5.1)
[2023-06-04] MEDS ORDERED: MECLIZINE 25 MG TABLET PO ONE (13:05)
[2023-06-04 14:11] LABS: VALPROIC ACID (DEPAKOTE) 40.7 UG/ML (50.0-100.0)
[2023-06-04 19:53] VITALS: BP 140/82; TEMP 98.4; O2SAT 91
== END 2023-06-04 20:14 | disposition home or self-care (01) ==
LOC: M ED 11:38 → EDBD 11:38 → M ED 20:14
DX: R42 Dizziness and giddiness (principal); I25.10 Atherosclerotic heart disease of native coronary artery without angina pectoris; E11.9 Type 2 diabetes mellitus without complications; Z79.4 Long term (current) use of insulin; I10 Essential (primary) hypertension; E78.5 Hyperlipidemia, unspecified; Z86.718 Personal history of other venous thrombosis and embolism; G25.81 Restless legs syndrome; K21.9 Gastro-esophageal reflux disease without esophagitis; Z98.84 Bariatric surgery status; Z79.899 Other long term (current) drug therapy
CPT/HCPCS: 36415; 70450; 70496; 70498; 70544; 70551; 71045; 80047; 80048; 80164; 85025; 85610; 85730; 87635; 93005; 93041; 94760; 99285; Q9967

== ENCOUNTER → 2023-07-22 | Outpatient (CLI) | payer MEDICARE, MEDICAID ==
[~2023-07-22] MED LIST changes: +MECL-86 PO
[2023-07-22 16:05] LABS: HEMOGLOBIN A1c 7.4 % (4.0-6.0)
[2023-07-22 16:26] LABS: CALCIUM LEVEL 8.3 MG/DL (8.3-10.6); CHOLESTEROL RISK RATIO 2.81 (<5); CREATININE FOR GFR 1.44 MG/DL (0.55-1.30); FERRITIN 63.4 NG/ML (7.3-270.7); FOLATE 14.35 NG/ML (>5.4); GLOMERULAR FILTRATION RATE 38.5 (>45); HDL CHOLESTEROL 50.1 MG/DL (>40); LDL CHOLESTEROL 68.1 MG/DL (<100); NON-HDL-C 90.9 MG/DL; POTASSIUM SERUM 3.2 MMOL/L (3.5-5.1); TOTAL 25(OH) VITAMIN D 21.8 NG/ML (20.0-100.0)
== END ==
LOC: M PLALAB 13:02
PROVIDERS: ATTEND Family Medicine
DX: E11.22 Type 2 diabetes mellitus with diabetic chronic kidney disease (principal); N18.32 Chronic kidney disease, stage 3b; Z98.84 Bariatric surgery status

== ENCOUNTER 2023-09-23 15:21 | Emergency (ER) | payer MEDICARE, MEDICAID ==
[~2023-09-23] VITALS: Ht 165.1 cm; Wt 109.1 kg
[2023-09-23 16:04] LABS: BASO % 0.3 % (0.0-1.0); EOS % 0.3 % (0.0-3.0); HEMATOCRIT 41.9 % (36.0-47.0); HEMOGLOBIN 13.2 g/dl (12.0-15.5); LYMPH # 1.7 10^3/uL (1.5-5.0); LYMPH % 21.8 % (24.0-44.0); MEAN CORPUSCULAR HEMOGLOBIN 30.9 pg (27.0-33.0); MEAN CORPUSCULAR HGB CONC 31.5 g/dl (32.0-36.5); MEAN CORPUSCULAR VOLUME 98.1 fl (80.0-96.0); MONO # 0.5 10^3/uL (0.0-0.8); MONO % 6.5 % (2.0-8.0); NEUTROPHILS # 5.6 10^3/uL (1.5-8.5); NEUTROPHILS % 70.8 % (36.0-66.0); PLATELET COUNT, AUTOMATED 178 10^3/uL (150-450); RED BLOOD COUNT 4.27 10^6/uL (4.00-5.40); WHITE BLOOD COUNT 7.9 10^3/uL (4.0-10.0)
[2023-09-23 16:31] LABS: CALCIUM LEVEL 9.3 MG/DL (8.3-10.6); CK-MB VALUE MASS 1.4 NG/ML (<3.6); CREATININE FOR GFR 1.84 MG/DL (0.55-1.30); MAGNESIUM LEVEL 1.6 MG/DL (1.8-2.4); POTASSIUM SERUM 4.2 MMOL/L (3.5-5.1)
[2023-09-23 16:32] LABS: FREE T4 0.97 NG/DL (0.89-1.76)
[2023-09-23 16:33] LABS: THYROID STIMULATING HORMONE 0.733 uIU/ML (0.55-4.78)
[2023-09-23 16:34] LABS: MB/CK RELATIVE INDEX 1.09 (< OR =4)
[2023-09-23 16:45] LABS: RSV AMPLIFICATION NEGATIVE (NEGATIVE)
[2023-09-23] MEDS ORDERED: MAG SULF 1GM/100ML (MAG RUN) 1 GM in IV 1 EA IV ONE (16:50)
[2023-09-23 18:06] VITALS: BP 162/95; TEMP 96.7; O2SAT 98
== END 2023-09-23 18:10 | disposition left against medical advice (07) ==
LOC: M ED 15:21 → EDBD 15:21 → M ED 18:10
DX: S09.90XA Unspecified injury of head, initial encounter (principal); W22.8XXA Striking against or struck by other objects, initial encounter; Y92.009 Unspecified place in unspecified non-institutional (private) residence as the place of occurrence of the external cause; Y93.89 Activity, other specified; Y99.8 Other external cause status; E83.42 Hypomagnesemia; R55 Syncope and collapse; I11.9 Hypertensive heart disease without heart failure; Z86.711 Personal history of pulmonary embolism; E11.9 Type 2 diabetes mellitus without complications; E78.5 Hyperlipidemia, unspecified; G47.33 Obstructive sleep apnea (adult) (pediatric); Z79.899 Other long term (current) drug therapy; Z79.4 Long term (current) use of insulin
CPT/HCPCS: 70450; 71045; 72125; 80048; 82550; 82553; 83735; 84439; 84443; 84484; 85025; 87631; 93005; 93041; 94760; 96365; 99285; J3475

== ENCOUNTER 2023-09-24 22:24 | Emergency (ER) | payer MEDICARE, MEDICAID ==
[~2023-09-24] VITALS: Ht 165.1 cm; Wt 109.1 kg
[2023-09-25] MEDS ORDERED: MEDR4PAK PO (07:08)
[2023-09-25] MEDS: predniSONE 20 MG TAB PO ONE (07:17)
[2023-09-25 07:39] VITALS: BP 145/89; TEMP 97.8; O2SAT 98
== END 2023-09-25 07:42 | disposition home or self-care (01) ==
LOC: EDBD 22:24 → M ED 22:24
DX: M19.071 Primary osteoarthritis, right ankle and foot (principal); I10 Essential (primary) hypertension; I50.20 Unspecified systolic (congestive) heart failure; E11.39 Type 2 diabetes mellitus with other diabetic ophthalmic complication; E78.5 Hyperlipidemia, unspecified; K21.9 Gastro-esophageal reflux disease without esophagitis; Z79.899 Other long term (current) drug therapy; Z79.4 Long term (current) use of insulin
CPT/HCPCS: 73564; 73590; 73610; 99284; J7512

== ENCOUNTER → 2023-10-15 | Outpatient (REF) | payer MEDICARE, MEDICAID, OTHER ==
[~2023-10-15] MED LIST changes: +HYDR-161 PO; -HYDR10TAB PO; +MEDR4PAK PO
[2023-10-15 19:10] LABS: MAGNESIUM URINE RANDOM 2.6 MG/DL
[2023-10-15 19:11] LABS: CREATININE,RANDOM URINE 31.4 MG/DL
== END ==
LOC: M LAB REF 16:53
PROVIDERS: ATTEND Nurse Practitioner Family
DX: E83.42 Hypomagnesemia (principal); N18.32 Chronic kidney disease, stage 3b

== ENCOUNTER 2023-10-26 21:27 | Emergency (ER) | payer MEDICAID, MEDICARE, OTHER ==
[2023-10-26] MEDS: NS 1,000 ML IV ONE (22:58)
[2023-10-26 23:02] LABS: BASO % 0.4 % (0.0-1.0); EOS # 0.3 10^3/uL (0.0-0.5); EOS % 3.9 % (0.0-3.0); HEMATOCRIT 33.9 % (36.0-47.0); HEMOGLOBIN 10.5 g/dl (12.0-15.5); LYMPH # 3.2 10^3/uL (1.5-5.0); MEAN CORPUSCULAR HEMOGLOBIN 31.1 pg (27.0-33.0); MEAN CORPUSCULAR VOLUME 100.3 fl (80.0-96.0); MONO # 1.1 10^3/uL (0.0-0.8); MONO % 13.4 % (2.0-8.0); NEUTROPHILS # 3.7 10^3/uL (1.5-8.5); NEUTROPHILS % 43.9 % (36.0-66.0); PLATELET COUNT, AUTOMATED 106 10^3/uL (150-450); RED BLOOD COUNT 3.38 10^6/uL (4.00-5.40); WHITE BLOOD COUNT 8.5 10^3/uL (4.0-10.0)
[2023-10-26 23:28] LABS: CK-MB VALUE MASS 1.1 NG/ML (<3.6)
[2023-10-26 23:30] LABS: ALBUMIN 2.6 G/DL (3.2-5.2); BILIRUBIN,DIRECT 0.1 MG/DL (<0.4); BILIRUBIN,TOTAL 0.3 MG/DL (0.3-1.2); CALCIUM LEVEL 8.1 MG/DL (8.3-10.6); CREATININE FOR GFR 1.8 MG/DL (0.55-1.30); GLOMERULAR FILTRATION RATE 29.8 (>45); MB/CK RELATIVE INDEX 2.11 (< OR =4); POTASSIUM SERUM 4.9 MMOL/L (3.5-5.1); TOTAL PROTEIN 5.6 G/DL (5.7-8.2)
[2023-10-26] MEDS: DEXTROSE 50% 50ML SYRINGE IV STA (23:39)
[2023-10-26 23:40] LABS: VALPROIC ACID (DEPAKOTE) 43.5 UG/ML (50.0-100.0)
[2023-10-27 00:42] LABS: AMPHETAMINES LEVEL URINE NEGATIVE (NEGATIVE); BARBITURATES URINE NEGATIVE (NEGATIVE)
[2023-10-27 00:43] LABS: BENZODIAZEPINES URINE NEGATIVE (NEGATIVE); CANNABINOIDS URINE NEGATIVE (NEGATIVE); CK-MB VALUE MASS 1.2 NG/ML (<3.6); COCAINE METABOLITE URINE NEGATIVE (NEGATIVE); METHADONE URINE NEGATIVE (NEGATIVE); OPIATES URINE NEGATIVE (NEGATIVE); PHENCYCLIDINE URINE NEGATIVE (NEGATIVE)
[2023-10-27 00:45] LABS: MB/CK RELATIVE INDEX 2.26 (< OR =4)
[2023-10-27 04:00] VITALS: BP 131/68; TEMP 97.2; O2SAT 99
[2023-10-27] MEDS ORDERED: ONDA4TAB6 PO (05:26)
== END 2023-10-27 05:58 | disposition home or self-care (01) ==
LOC: M ED 21:27
DX: R11.10 Vomiting, unspecified (principal); I95.1 Orthostatic hypotension; R55 Syncope and collapse; E11.649 Type 2 diabetes mellitus with hypoglycemia without coma; I10 Essential (primary) hypertension; E78.5 Hyperlipidemia, unspecified; Z86.711 Personal history of pulmonary embolism; Z86.718 Personal history of other venous thrombosis and embolism; Z82.49 Family history of ischemic heart disease and other diseases of the circulatory system; Z79.4 Long term (current) use of insulin; Z79.899 Other long term (current) drug therapy
CPT/HCPCS: 70450; 80048; 80076; 80164; 80307; 81000; 81015; 82140; 82550; 82553; 83690; 84484; 85025; 87086; 87486; 87581; 87633; 87798; 93005; 93041; 96361; 96374; 99285; G0463

== ENCOUNTER → 2023-10-29 | Outpatient (REF) | payer OTHER, MEDICAID ==
[~2023-10-29] MED LIST changes: +ONDA4TAB6 PO
== END ==
LOC: M SFHCPLAZ 22:38
PROVIDERS: ATTEND Family Medicine
DX: Z53.9 Procedure and treatment not carried out, unspecified reason (principal)

== ENCOUNTER → 2024-02-09 | Outpatient (CLI) | payer OTHER, MEDICAID ==
[~2024-02-09] MED LIST changes: -AZEL0.055 NARES; +AZEL1SPR4 NARES; +FLUO-365 PO; -FLUO20CA22 PO; +ONDA-282; +ONDA-282 PO; -ONDA4TAB6; -ONDA4TAB6 PO
[2024-02-09 14:00] LABS: TOTAL 25(OH) VITAMIN D 18.8 NG/ML (20.0-100.0)
[2024-02-09 14:01] LABS: FERRITIN 45.7 NG/ML (7.3-270.7)
[2024-02-09 14:06] LABS: ALBUMIN 3.1 G/DL (3.2-5.2); BILIRUBIN,TOTAL 0.5 MG/DL (0.3-1.2); CALCIUM LEVEL 9.3 MG/DL (8.3-10.6); CHOLESTEROL RISK RATIO 5.06 (<5); CREATININE FOR GFR 1.28 MG/DL (0.55-1.30); GLOMERULAR FILTRATION RATE 44.1 (>45); HDL CHOLESTEROL 37.5 MG/DL (>40); LDL CHOLESTEROL 114.9 MG/DL (<100); NON-HDL-C 152.5 MG/DL; POTASSIUM SERUM 3.2 MMOL/L (3.5-5.1); TOTAL PROTEIN 6.4 G/DL (5.7-8.2)
[2024-02-09 14:08] LABS: HEMOGLOBIN A1c 7.2 % (4.0-6.0)
[2024-02-09 14:24] LABS: CREATININE, URINE 125.6 MG/DL
[2024-02-09 14:39] LABS: MAU/CREAT RATIO 1059.7 MCG/MG (0.0-30.0)
== END ==
LOC: M PLALAB 10:48
PROVIDERS: ATTEND Family Medicine
DX: N18.32 Chronic kidney disease, stage 3b (principal); E11.22 Type 2 diabetes mellitus with diabetic chronic kidney disease; Z98.84 Bariatric surgery status

== ENCOUNTER 2024-03-14 07:20 | Emergency (ER) | payer OTHER, MEDICAID ==
[2024-03-14] MEDS ORDERED: FURO20TA2 (07:41)
[2024-03-14] MEDS ORDERED: AMLO1TAB24 (07:41)
[2024-03-14 09:31] LABS: BASO % 0.3 % (0.0-1.0); EOS # 0.2 10^3/uL (0.0-0.5); HEMATOCRIT 40.3 % (36.0-47.0); HEMOGLOBIN 13.3 g/dl (12.0-15.5); LYMPH % 19.9 % (24.0-44.0); MEAN CORPUSCULAR HEMOGLOBIN 29.7 pg (27.0-33.0); MONO # 0.7 10^3/uL (0.0-0.8); MONO % 7.3 % (2.0-8.0); NEUTROPHILS # 7.1 10^3/uL (1.5-8.5); NEUTROPHILS % 70.2 % (36.0-66.0); PLATELET COUNT, AUTOMATED 194 10^3/uL (150-450); RED BLOOD COUNT 4.48 10^6/uL (4.00-5.40); WHITE BLOOD COUNT 10.1 10^3/uL (4.0-10.0)
[2024-03-14 09:57] LABS: URIC ACID 5.6 MG/DL (3.1-7.8)
[2024-03-14 10:00] LABS: CREATININE FOR GFR 1.2 MG/DL (0.55-1.30); GLOMERULAR FILTRATION RATE 47.4 (>45); POTASSIUM SERUM 3.2 MMOL/L (3.5-5.1)
[2024-03-14] MEDS ORDERED: PRED20TA PO (10:16)
[2024-03-14] MEDS ORDERED: COLC0.6T47 PO (10:16)
[2024-03-14] MEDS ORDERED: POTA-298 PO (10:17)
[2024-03-14 10:23] VITALS: BP 165/82; TEMP 98.1; O2SAT 95
[2024-03-14] MEDS: COLCHICINE 0.6 MG TABLET PO ONE (10:36)
[2024-03-14] MEDS: predniSONE 20 MG TAB PO ONE (10:36)
== END 2024-03-14 10:38 | disposition home or self-care (01) ==
LOC: M ED 07:20
DX: M10.071 Idiopathic gout, right ankle and foot (principal); I10 Essential (primary) hypertension; G47.33 Obstructive sleep apnea (adult) (pediatric); E11.9 Type 2 diabetes mellitus without complications; Z79.4 Long term (current) use of insulin; Z79.52 Long term (current) use of systemic steroids; Z79.899 Other long term (current) drug therapy
CPT/HCPCS: 36415; 73610; 80048; 81001; 84550; 85025; 99284; J7512

== ENCOUNTER 2024-03-20 15:16 | Emergency (ER) | payer OTHER, MEDICAID ==
[~2024-03-20] VITALS: Ht 167.6 cm; Wt 104.8 kg
[~2024-03-20 15:16] MED LIST changes: +AMLO1TAB24; +COLC0.6T47 PO; +FURO20TA2; +POTA-298 PO
[2024-03-20 15:53] LABS: BASO % 0.2 % (0.0-1.0); EOS # 0.2 10^3/uL (0.0-0.5); EOS % 2.4 % (0.0-3.0); HEMATOCRIT 34.7 % (36.0-47.0); HEMOGLOBIN 11.1 g/dl (12.0-15.5); LYMPH # 3.2 10^3/uL (1.5-5.0); LYMPH % 38.2 % (24.0-44.0); MEAN CORPUSCULAR VOLUME 90.6 fl (80.0-96.0); MONO # 0.6 10^3/uL (0.0-0.8); MONO % 7.5 % (2.0-8.0); NEUTROPHILS # 4.3 10^3/uL (1.5-8.5); NEUTROPHILS % 51.5 % (36.0-66.0); PLATELET COUNT, AUTOMATED 172 10^3/uL (150-450); RED BLOOD COUNT 3.83 10^6/uL (4.00-5.40); WHITE BLOOD COUNT 8.4 10^3/uL (4.0-10.0)
[2024-03-20 16:06] LABS: INR 1.17; PARTIAL THROMBOPLASTIN TIME 27.5 SECONDS (24.8-34.2); PROTHROMBIN TIME 14.5 SECONDS (12.5-14.5)
[2024-03-20 16:18] LABS: ETHYL ALCOHOL (ETHANOL) < 0.003 % (0.000-0.010)
[2024-03-20 16:19] LABS: BLOOD UREA NITROGEN 34 MG/DL (9-23); CALCIUM LEVEL 8.4 MG/DL (8.3-10.6); CARBON DIOXIDE LEVEL 24 MMOL/L (20-31); CHLORIDE LEVEL 110 MMOL/L (98-107); CK-MB VALUE MASS 2.3 NG/ML (<3.6); CPK CREATINE PHOSPHOKINASE 84 U/L (34-145); CREATININE FOR GFR 1.89 MG/DL (0.55-1.30); GLOMERULAR FILTRATION RATE 28.1 (>45); GLUCOSE, FASTING 166 MG/DL (74-106); MAGNESIUM LEVEL 1.3 MG/DL (1.8-2.4); MB/CK RELATIVE INDEX 2.73 (< OR =4); POTASSIUM SERUM 3.6 MMOL/L (3.5-5.1); SODIUM LEVEL 142 MMOL/L (136-145)
[2024-03-20 16:21] LABS: FREE T4 1.21 NG/DL (0.89-1.76); THYROID STIMULATING HORMONE 0.939 uIU/ML (0.55-4.78)
[2024-03-20] MEDS: MAG SULF 1GM/100ML (MAG RUN) 1 GM in IV 1 EA IV ONE (17:10)
[2024-03-20 18:01] VITALS: O2SAT 95
[2024-03-20] MEDS: ACETAMINOPHEN 325 MG TAB PO ONE (18:04)
[2024-03-20 18:15] VITALS: BP 134/80; TEMP 97.6
== END 2024-03-20 18:49 | disposition left against medical advice (07) ==
LOC: EDBD 15:16 → M ED 15:16
DX: R55 Syncope and collapse (principal); R51.9 Headache, unspecified; Z53.20 Procedure and treatment not carried out because of patient's decision for unspecified reasons; E11.9 Type 2 diabetes mellitus without complications; Z79.4 Long term (current) use of insulin; Z86.711 Personal history of pulmonary embolism; N18.30 Chronic kidney disease, stage 3 unspecified; Z98.84 Bariatric surgery status; Z79.899 Other long term (current) drug therapy
CPT/HCPCS: 70450; 71045; 80048; 82077; 82550; 82553; 83735; 84439; 84443; 84484; 85025; 85610; 85730; 93005; 93041; 94760; 96374; 99285; J3475

== ENCOUNTER 2024-03-27 17:05 | Inpatient (IN) | payer OTHER, MEDICAID ==
[~2024-03-27] VITALS: Ht 170.2 cm; Wt 111.7 kg
[~2024-03-27 17:05] MED LIST changes: -AMLO1TAB24; -FURO20TA2; +FURO20TA2 PO
[2024-03-27 17:45] LABS: BASO % 0.5 % (0.0-1.0); EOS # 0.2 10^3/uL (0.0-0.5); EOS % 2.9 % (0.0-3.0); HEMOGLOBIN 10.9 g/dl (12.0-15.5); LYMPH # 2.9 10^3/uL (1.5-5.0); LYMPH % 39.9 % (24.0-44.0); MEAN CORPUSCULAR HEMOGLOBIN 29.6 pg (27.0-33.0); MEAN CORPUSCULAR HGB CONC 31.1 g/dl (32.0-36.5); MEAN CORPUSCULAR VOLUME 95.1 fl (80.0-96.0); MONO # 0.6 10^3/uL (0.0-0.8); MONO % 8.4 % (2.0-8.0); NEUTROPHILS # 3.5 10^3/uL (1.5-8.5); PLATELET COUNT, AUTOMATED 155 10^3/uL (150-450); RED BLOOD COUNT 3.68 10^6/uL (4.00-5.40); WHITE BLOOD COUNT 7.3 10^3/uL (4.0-10.0)
[2024-03-27 18:00] LABS: INR 1.1; PARTIAL THROMBOPLASTIN TIME 29.7 SECONDS (24.8-34.2); PROTHROMBIN TIME 13.9 SECONDS (12.5-14.5)
[2024-03-27 18:05] LABS: CK-MB VALUE MASS 2.2 NG/ML (<3.6)
[2024-03-27 18:06] LABS: FREE T4 0.81 NG/DL (0.89-1.76); THYROID STIMULATING HORMONE 1.408 uIU/ML (0.55-4.78)
[2024-03-27 18:12] LABS: ETHYL ALCOHOL (ETHANOL) < 0.003 % (0.000-0.010)
[2024-03-27 18:13] LABS: BLOOD UREA NITROGEN 67 MG/DL (9-23); CALCIUM LEVEL 8.7 MG/DL (8.3-10.6); CARBON DIOXIDE LEVEL 20 MMOL/L (20-31); CHLORIDE LEVEL 115 MMOL/L (98-107); GLOMERULAR FILTRATION RATE 21.3 (>45); GLUCOSE, FASTING 102 MG/DL (74-106); MAGNESIUM LEVEL 1.8 MG/DL (1.8-2.4); SODIUM LEVEL 145 MMOL/L (136-145)
[2024-03-27 18:18] LABS: CPK CREATINE PHOSPHOKINASE 109 U/L (34-145); MB/CK RELATIVE INDEX 2.01 (< OR =4)
[2024-03-27] MEDS: NS 1,000 ML IV ONE (19:55)
[2024-03-27] MEDS: PATIROMER SORBITEX CALCIUM 8.4 GM POWDER PACKET (VELTASSA) PO ONE (19:55)
[2024-03-27] MEDS ORDERED: INSU100I24 INJ (20:56)
[2024-03-27] MEDS: INSULIN LISPRO (NovoLOG) PER UNIT SC SCH (21:00)
[2024-03-27] MEDS ORDERED: D 50CAP2 PO (21:02)
[2024-03-27] MEDS ORDERED: TIZA10TA PO (21:02)
[2024-03-27] MEDS ORDERED: HYDR25TA87 PO (21:02)
[2024-03-27] MEDS ORDERED: CETI-24 PO (21:02)
[2024-03-27] MEDS ORDERED: ZOCOR PO (21:02)
[2024-03-27] MEDS ORDERED: HOME MED LIST COMPLETE! XX SCH (21:05)
[2024-03-27] MEDS ORDERED: GLUCAGON INJ 1MG VIAL SC PRN (21:30)
[2024-03-27] MEDS ORDERED: DEXTROSE 50% 50ML SYRINGE IV PRN (21:30)
[2024-03-27] MEDS ORDERED: GLUCOSE 4 GM CHEW PO PRN (21:30)
[2024-03-27] MEDS: NS 1,000 ML IV SCH (22:44)
[2024-03-28 01:00] VITALS: BP 115/57; TEMP 97.9; O2SAT 98
[2024-03-28] MEDS: tiZANidine 4 MG TAB PO SCH (01:12)
[2024-03-28] MEDS: rOPINIRole 1MG TAB PO SCH (01:13)
[2024-03-28] MEDS: CARVedilol 12.5 MG TAB PO SCH (01:16)
[2024-03-28] MEDS: DIVALPROEX 500 MG TAB PO SCH (01:17)
[2024-03-28] MEDS: FLUTICASONE PROP 0.05% NASAL SPRAY 16 GM (FLONASE) NARES SCH (01:17)
[2024-03-28] MEDS: LATANOPROST 0.005% OPHTH SOLN 2.5 ML OU SCH (01:17)
[2024-03-28 04:13] VITALS: BP 105/57; TEMP 97.6; O2SAT 94
[2024-03-28 06:32] LABS: HEMATOCRIT 32.8 % (36.0-47.0); HEMOGLOBIN 10.2 g/dl (12.0-15.5); MEAN CORPUSCULAR HEMOGLOBIN 29.3 pg (27.0-33.0); MEAN CORPUSCULAR HGB CONC 31.1 g/dl (32.0-36.5); MEAN CORPUSCULAR VOLUME 94.3 fl (80.0-96.0); PLATELET COUNT, AUTOMATED 134 10^3/uL (150-450); RED BLOOD COUNT 3.48 10^6/uL (4.00-5.40); WHITE BLOOD COUNT 6.1 10^3/uL (4.0-10.0)
[2024-03-28 07:01] LABS: ALBUMIN 2.7 G/DL (3.2-5.2); BILIRUBIN,TOTAL 0.5 MG/DL (0.3-1.2); CALCIUM LEVEL 8.8 MG/DL (8.3-10.6); CREATININE FOR GFR 1.94 MG/DL (0.55-1.30); GLOMERULAR FILTRATION RATE 27.2 (>45); POTASSIUM SERUM 4.9 MMOL/L (3.5-5.1); TOTAL PROTEIN 5.1 G/DL (5.7-8.2)
[2024-03-28] MEDS ORDERED: tiZANidine 4 MG TAB PO PRN (07:20)
[2024-03-28] MEDS ORDERED: traMADol 50 MG TAB PO PRN (07:20)
[2024-03-28] MEDS: INSULIN LISPRO (NovoLOG) PER UNIT SC SCH (08:06)
[2024-03-28] MEDS: PANTOPRAZOLE 40MG TAB (PROTONIX) PO SCH (08:07)
[2024-03-28] MEDS: MAGNESIUM OXIDE 400MG TAB (MAG-OX) PO SCH (08:07)
[2024-03-28] MEDS: GABAPENTIN 300 MG CAP PO SCH (08:07)
[2024-03-28 08:08] VITALS: BP 155/79
[2024-03-28] MEDS: CINACALCET 30 MG TAB (SENSIPAR) PO SCH (08:08)
[2024-03-28] MEDS: HEPARIN SOD (PORCINE) 5000UNITS/ML 1ML VIAL/SYRINGE SC SCH (08:08)
[2024-03-28] MEDS: DOCUSATE SODIUM 100MG CAPSULE PO SCH (08:08)
[2024-03-28] MEDS ORDERED: amLODIPine 5 MG TAB PO SCH (09:00)
[2024-03-28] MEDS ORDERED: PANTOPRAZOLE 40MG VIAL IV SCH (09:00)
[2024-03-28] MEDS ORDERED: FUROSEMIDE 20 MG TAB PO SCH (09:00)
[2024-03-28] MEDS: ACETAMINOPHEN TAB 650MG DOSE (2X325MG) PO PRN (12:24)
== END 2024-03-28 13:50 | disposition home or self-care (01) | DRG 683 ==
LOC: M ED 17:05 → M ED INP 21:28 → M MSPAV 22:23
PROVIDERS: ADMIT Preventive Medicine Undersea and Hyperbaric Medicine; ATTEND Internal Medicine Nephrology
DX: N17.9 Acute kidney failure, unspecified (principal); Q60.0 Renal agenesis, unilateral; R45.851 Suicidal ideations; N18.32 Chronic kidney disease, stage 3b; I12.9 Hypertensive chronic kidney disease with stage 1 through stage 4 chronic kidney disease, or unspecified chronic kidney disease; E11.22 Type 2 diabetes mellitus with diabetic chronic kidney disease; E11.42 Type 2 diabetes mellitus with diabetic polyneuropathy; E78.5 Hyperlipidemia, unspecified; K21.9 Gastro-esophageal reflux disease without esophagitis; M19.90 Unspecified osteoarthritis, unspecified site; F32.A Depression, unspecified; E55.9 Vitamin D deficiency, unspecified; G47.33 Obstructive sleep apnea (adult) (pediatric); H40.9 Unspecified glaucoma; G25.81 Restless legs syndrome; E87.5 Hyperkalemia; M10.9 Gout, unspecified; R32 Unspecified urinary incontinence; H04.123 Dry eye syndrome of bilateral lacrimal glands; R42 Dizziness and giddiness; Z90.49 Acquired absence of other specified parts of digestive tract; Z86.711 Personal history of pulmonary embolism; Z86.718 Personal history of other venous thrombosis and embolism; Z98.84 Bariatric surgery status

== ENCOUNTER 2024-04-10 21:07 | Emergency (ER) | payer OTHER, MEDICAID ==
[~2024-04-10] VITALS: Ht 170.2 cm; Wt 114.4 kg
[2024-04-10 21:07] VITALS: BP 132/74; TEMP 97.1; O2SAT 96
[~2024-04-10 21:07] MED LIST changes: +CETI-24 PO; +D 50CAP2 PO; +HYDR25TA87 PO; +INSU100I24 INJ; +TIZA10TA PO; +ZOCOR PO
== END 2024-04-10 23:49 | disposition left against medical advice (07) ==
LOC: M ED 21:07
DX: Z53.21 Procedure and treatment not carried out due to patient leaving prior to being seen by health care provider (principal)

== ENCOUNTER 2024-04-16 06:01 | Emergency (ER) | payer OTHER, MEDICAID ==
[~2024-04-16] VITALS: Ht 165.1 cm; Wt 113.6 kg
[2024-04-16] MEDS ORDERED: CIPR250T26 PO (08:44)
[2024-04-16 10:55] VITALS: BP 150/77; TEMP 97.7; O2SAT 98
== END 2024-04-16 10:56 | disposition home or self-care (01) ==
LOC: M ED 06:01 → EDBD 06:01 → M ED 10:56
DX: N39.0 Urinary tract infection, site not specified (principal); E11.40 Type 2 diabetes mellitus with diabetic neuropathy, unspecified; I25.119 Atherosclerotic heart disease of native coronary artery with unspecified angina pectoris; E78.5 Hyperlipidemia, unspecified; G47.33 Obstructive sleep apnea (adult) (pediatric); I12.9 Hypertensive chronic kidney disease with stage 1 through stage 4 chronic kidney disease, or unspecified chronic kidney disease; Z79.4 Long term (current) use of insulin; Z79.899 Other long term (current) drug therapy

== ENCOUNTER 2024-05-15 13:49 | Inpatient (IN) | payer OTHER, MEDICAID ==
[~2024-05-15] VITALS: Ht 165.1 cm; Wt 106.8 kg
[2024-05-15] VITALS (21 sets, daily range): BP systolic 98–157; BP diastolic 54–83; TEMP 97; O2SAT 98–100
[~2024-05-15 13:49] MED LIST changes: +CIPR250T26 PO
[2024-05-15] MEDS ORDERED: NS 3,150 ML in IV 1 EA IV ONE (14:00)
[2024-05-15 14:08] LABS: VENOUS BASE EXCESS -0.7 (-2.0-2.0); VENOUS HCO3 24.3 MMOL/L (23.0-27.0); VENOUS O2 SATURATION 93.6 % (60.0-80.0); VENOUS PARTIAL PRESSURE O2 71.1 mmHg (30.0-50.0); VENOUS STANDARD HCO3 23.9 MMOL/L; VENOUS TOTAL CO2 25.5 MMOL/L (24.0-28.0)
[2024-05-15] MEDS: NS 2,150 ML in IV 1 EA IV STA (14:11)
[2024-05-15] MEDS: PIPERACILLIN/TAZOBACTAM SOD 4.5 GM in D5W MINI-BAG PLUS 50 ML IV ONE (14:17)
[2024-05-15 14:24] LABS: BASO % 0.4 % (0.0-1.0); EOS # 0.2 10^3/uL (0.0-0.5); HEMATOCRIT 31.9 % (36.0-47.0); HEMOGLOBIN 10.6 g/dl (12.0-15.5); LYMPH % 39.6 % (24.0-44.0); MEAN CORPUSCULAR HEMOGLOBIN 30.3 pg (27.0-33.0); MEAN CORPUSCULAR HGB CONC 33.2 g/dl (32.0-36.5); MEAN CORPUSCULAR VOLUME 91.1 fl (80.0-96.0); MONO # 0.7 10^3/uL (0.0-0.8); MONO % 8.6 % (2.0-8.0); NEUTROPHILS # 3.7 10^3/uL (1.5-8.5); NEUTROPHILS % 49.1 % (36.0-66.0); PLATELET COUNT, AUTOMATED 142 10^3/uL (150-450); WHITE BLOOD COUNT 7.5 10^3/uL (4.0-10.0)
[2024-05-15] MEDS: LIDOCAINE 2% 5ML JELLY UROJET TOP ONE (14:25)
[2024-05-15] MEDS: NOREPINEPHRINE 4MG IN D5 250ML 4 MG in IV 1 EA IV SCH (14:39)
[2024-05-15 14:40] LABS: INR 1.16; PARTIAL THROMBOPLASTIN TIME 28.1 SECONDS (24.8-34.2); PROTHROMBIN TIME 14.5 SECONDS (12.5-14.5)
[2024-05-15 14:50] LABS: CK-MB VALUE MASS < 1.0 NG/ML (<3.6); VALPROIC ACID (DEPAKOTE) 13.1 UG/ML (50.0-100.0)
[2024-05-15] MEDS ORDERED: EPINEPHrine HCL INJ 1 MG in D5W 240 ML IV SCH ×2 (14:50→15:15)
[2024-05-15 14:51] LABS: C REACTIVE PROTEIN QUANTITATIV < 0.40 MG/DL (<1.0); ETHYL ALCOHOL (ETHANOL) < 0.003 % (0.000-0.010); SALICYLATE LEVEL < 3.0 MG/DL (<30)
[2024-05-15 14:52] LABS: ALBUMIN 2.7 G/DL (3.2-5.2); ALKALINE PHOSPHATASE 124 U/L (46-116); ALT/SGPT < 9 U/L (7.0-40); AMYLASE 53 U/L (30-118); AST/SGOT < 8 U/L (<34); BILIRUBIN,DIRECT < 0.1 MG/DL (<0.4); BILIRUBIN,TOTAL 0.3 MG/DL (0.3-1.2); BLOOD UREA NITROGEN 43 MG/DL (9-23); CALCIUM LEVEL 8.7 MG/DL (8.3-10.6); CARBON DIOXIDE LEVEL 28 MMOL/L (20-31); CHLORIDE LEVEL 109 MMOL/L (98-107); CPK CREATINE PHOSPHOKINASE 40 U/L (34-145); GLOMERULAR FILTRATION RATE 21.3 (>45); GLUCOSE, FASTING 133 MG/DL (74-106); MAGNESIUM LEVEL 1.5 MG/DL (1.8-2.4); POTASSIUM SERUM 3.8 MMOL/L (3.5-5.1); SODIUM LEVEL 144 MMOL/L (136-145); TOTAL PROTEIN 5.6 G/DL (5.7-8.2)
[2024-05-15 14:53] LABS: THYROID STIMULATING HORMONE 1.213 uIU/ML (0.55-4.78)
[2024-05-15 14:57] LABS: APPEARANCE, URINE CLEAR (CLEAR); BACTERIA, URINE AUTO NEGATIVE (NEGATIVE); BILIRUBIN, URINE AUTO NEGATIVE (NEGATIVE); BLOOD, URINE BLOOD NEGATIVE (NEGATIVE); COLOR, URINE YELLOW (YELLOW); GLUCOSE, URINE (UA) AUTO NEGATIVE (NEGATIVE); KETONE, URINE AUTO NEGATIVE (NEGATIVE); LEUKOCYTE ESTERASE, URINE AUTO TRACE (NEGATIVE); NITRITE, URINE AUTO NEGATIVE (NEGATIVE); PROTEIN, URINE AUTO 2+ mg/dL (NEGATIVE); RBC, URINE AUTO 1 /HPF (0-3); SPECIFIC GRAVITY URINE AUTO 1.016 (1.002-1.035); SQUAMOUS EPITHELIAL CELL UR AU 3 /HPF (0-6); WBC, URINE AUTO 5 /HPF (0-3)
[2024-05-15 15:42] LABS: CK-MB VALUE MASS < 1.0 NG/ML (<3.6)
[2024-05-15 15:43] LABS: CPK CREATINE PHOSPHOKINASE 35 U/L (34-145); MB/CK RELATIVE INDEX 2.85 (< OR =4)
[2024-05-15] MEDS ORDERED: NOREPINEPHRINE 4MG IN D5 250ML 4 MG in IV 1 EA IV SCH (16:00)
[2024-05-15] MEDS: LR 1,000 ML IV SCH (16:58)
[2024-05-15] MEDS: VASOPRESSIN INJ 20 UNITS in NS 499 ML IV SCH (18:00)
[2024-05-15] MEDS ORDERED: MED REC IN PROGRESS XX SCH (18:15)
[2024-05-15] MEDS: HEPARIN SOD (PORCINE) 5000UNITS/ML 1ML VIAL/SYRINGE SC SCH (21:14)
[2024-05-15] MEDS: PANTOPRAZOLE 40MG VIAL IV SCH (21:14)
[2024-05-16] VITALS (12 sets, daily range): BP systolic 116–154; BP diastolic 55–74; TEMP 97.2–98.2; O2SAT 91–100
[2024-05-16 05:07] LABS: BASO % 0.5 % (0.0-1.0); EOS # 0.2 10^3/uL (0.0-0.5); EOS % 3.2 % (0.0-3.0); HEMATOCRIT 34.6 % (36.0-47.0); HEMOGLOBIN 11.1 g/dl (12.0-15.5); LYMPH # 2.7 10^3/uL (1.5-5.0); LYMPH % 43.3 % (24.0-44.0); MEAN CORPUSCULAR HEMOGLOBIN 29.8 pg (27.0-33.0); MEAN CORPUSCULAR HGB CONC 32.1 g/dl (32.0-36.5); MONO # 0.5 10^3/uL (0.0-0.8); MONO % 7.6 % (2.0-8.0); NEUTROPHILS # 2.8 10^3/uL (1.5-8.5); NEUTROPHILS % 45.2 % (36.0-66.0); PLATELET COUNT, AUTOMATED 122 10^3/uL (150-450); RED BLOOD COUNT 3.72 10^6/uL (4.00-5.40); WHITE BLOOD COUNT 6.2 10^3/uL (4.0-10.0)
[2024-05-16 05:32] LABS: ALBUMIN 2.6 G/DL (3.2-5.2); BILIRUBIN,TOTAL 0.3 MG/DL (0.3-1.2); CALCIUM LEVEL 8.7 MG/DL (8.3-10.6); CREATININE FOR GFR 2.02 MG/DL (0.55-1.30); MAGNESIUM LEVEL 1.5 MG/DL (1.8-2.4); POTASSIUM SERUM 4.1 MMOL/L (3.5-5.1); TOTAL PROTEIN 5.6 G/DL (5.7-8.2)
[2024-05-16] MEDS: MAG SULF 1GM/100ML (MAG RUN) 1 GM in IV 1 EA IV ONE (06:16)
[2024-05-16] MEDS ORDERED: DEXTROSE 50% 50ML SYRINGE IV PRN (07:20)
[2024-05-16] MEDS ORDERED: GLUCAGON INJ 1MG VIAL SC PRN (07:20)
[2024-05-16] MEDS ORDERED: GLUCOSE 4 GM CHEW PO PRN (07:20)
[2024-05-16] MEDS: GLUCAGON INJ 1MG VIAL IV STA (08:36)
[2024-05-16] MEDS: INSULIN LISPRO (NovoLOG) PER UNIT SC SCH ×2 (08:37→20:00)
[2024-05-16] MEDS ORDERED: DIVALPROEX 250MG *ER* TAB PO SCH (09:00)
[2024-05-16] MEDS ORDERED: SIMVPOW2 PO (10:00)
[2024-05-16] MEDS ORDERED: TRES1INJ2 SC (10:00)
[2024-05-16] MEDS: LEVEMIR (INSULIN DETEMIR) 1 UNITS/0.01ML SC SCH (18:47)
[2024-05-16] MEDS: LATANOPROST 0.005% OPHTH SOLN 2.5 ML OU SCH (20:13)
[2024-05-16] MEDS: AZELASTINE 137MCG NASAL SPY 30 ML (ASTELIN) SCH (21:16)
[2024-05-16] MEDS: ACETAMINOPHEN 325 MG TAB PO PRN (21:33)
[2024-05-17] MEDS: rOPINIRole 1MG TAB PO SCH (00:23)
[2024-05-17 05:07] LABS: BASO # 0.1 10^3/uL (0.0-0.2); BASO % 0.7 % (0.0-1.0); EOS # 0.3 10^3/uL (0.0-0.5); EOS % 3.9 % (0.0-3.0); HEMATOCRIT 34.7 % (36.0-47.0); HEMOGLOBIN 10.9 g/dl (12.0-15.5); LYMPH % 40.8 % (24.0-44.0); MEAN CORPUSCULAR HEMOGLOBIN 29.1 pg (27.0-33.0); MEAN CORPUSCULAR HGB CONC 31.4 g/dl (32.0-36.5); MEAN CORPUSCULAR VOLUME 92.5 fl (80.0-96.0); MONO # 0.6 10^3/uL (0.0-0.8); MONO % 8.1 % (2.0-8.0); NEUTROPHILS # 3.4 10^3/uL (1.5-8.5); NEUTROPHILS % 46.2 % (36.0-66.0); PLATELET COUNT, AUTOMATED 133 10^3/uL (150-450); RED BLOOD COUNT 3.75 10^6/uL (4.00-5.40); WHITE BLOOD COUNT 7.4 10^3/uL (4.0-10.0)
[2024-05-17 05:44] LABS: ALBUMIN 2.7 G/DL (3.2-5.2); ALKALINE PHOSPHATASE 117 U/L (46-116); ALT/SGPT < 9 U/L (7.0-40); AST/SGOT 12 U/L (<34); BILIRUBIN,TOTAL 0.3 MG/DL (0.3-1.2); BLOOD UREA NITROGEN 34 MG/DL (9-23); CALCIUM LEVEL 9.4 MG/DL (8.3-10.6); CARBON DIOXIDE LEVEL 27 MMOL/L (20-31); CHLORIDE LEVEL 111 MMOL/L (98-107); CREATININE FOR GFR 1.81 MG/DL (0.55-1.30); GLOMERULAR FILTRATION RATE 29.5 (>45); GLUCOSE, FASTING 86 MG/DL (74-106); MAGNESIUM LEVEL 1.8 MG/DL (1.8-2.4); POTASSIUM SERUM 4.5 MMOL/L (3.5-5.1); SODIUM LEVEL 143 MMOL/L (136-145); TOTAL PROTEIN 5.7 G/DL (5.7-8.2)
[2024-05-17 08:00] VITALS: BP 176/83; TEMP 97.1; O2SAT 96
[2024-05-17] MEDS: CINACALCET 30 MG TAB (SENSIPAR) PO SCH (09:21)
[2024-05-17 11:26] VITALS: BP 159/81; TEMP 97.2; O2SAT 96
[2024-05-17] MEDS ORDERED: DIVALPROEX 250MG TAB PO SCH (21:00)
== END 2024-05-17 12:45 | disposition home or self-care (01) | DRG 309 ==
LOC: EDBD 13:49 → M ED 13:49 → M ED INP 16:00 → M ICU 17:17
PROVIDERS: ADMIT Internal Medicine Pulmonary Disease; ATTEND Internal Medicine Pulmonary Disease
PROC: B246ZZZ Ultrasonography of Right and Left Heart (ICD-10-PCS; principal; 2024-05-16)
DX: R00.1 Bradycardia, unspecified (principal); N17.9 Acute kidney failure, unspecified; Q60.0 Renal agenesis, unilateral; E11.42 Type 2 diabetes mellitus with diabetic polyneuropathy; N18.32 Chronic kidney disease, stage 3b; E11.22 Type 2 diabetes mellitus with diabetic chronic kidney disease; I12.9 Hypertensive chronic kidney disease with stage 1 through stage 4 chronic kidney disease, or unspecified chronic kidney disease; E78.5 Hyperlipidemia, unspecified; K21.9 Gastro-esophageal reflux disease without esophagitis; M19.90 Unspecified osteoarthritis, unspecified site; G25.81 Restless legs syndrome; F32.A Depression, unspecified; G47.33 Obstructive sleep apnea (adult) (pediatric); H40.9 Unspecified glaucoma; E83.42 Hypomagnesemia; R19.7 Diarrhea, unspecified; Z79.4 Long term (current) use of insulin; Z79.899 Other long term (current) drug therapy; Z11.52 Encounter for screening for COVID-19; Z86.718 Personal history of other venous thrombosis and embolism; Z86.711 Personal history of pulmonary embolism; Z90.49 Acquired absence of other specified parts of digestive tract; G43.909 Migraine, unspecified, not intractable, without status migrainosus; E88.09 Other disorders of plasma-protein metabolism, not elsewhere classified; T44.7X5A Adverse effect of beta-adrenoreceptor antagonists, initial encounter

== ENCOUNTER 2024-05-30 01:56 | Emergency (ER) | payer OTHER, MEDICAID ==
[~2024-05-30] VITALS: Ht 165.1 cm; Wt 108.3 kg
[~2024-05-30 01:56] MED LIST changes: +GABA-1490 PO; -GABA600T4 PO; +SIMVPOW2 PO; +TRES1INJ2 SC
[2024-05-30] MEDS: NS 1,000 ML IV ONE (02:33)
[2024-05-30 03:10] LABS: BASO % 0.6 % (0.0-1.0); EOS # 0.2 10^3/uL (0.0-0.5); EOS % 4.4 % (0.0-3.0); HEMATOCRIT 28.2 % (36.0-47.0); HEMOGLOBIN 8.9 g/dl (12.0-15.5); LYMPH # 2.3 10^3/uL (1.5-5.0); LYMPH % 43.1 % (24.0-44.0); MEAN CORPUSCULAR HEMOGLOBIN 30.5 pg (27.0-33.0); MEAN CORPUSCULAR HGB CONC 31.6 g/dl (32.0-36.5); MEAN CORPUSCULAR VOLUME 96.6 fl (80.0-96.0); MONO # 0.4 10^3/uL (0.0-0.8); MONO % 8.1 % (2.0-8.0); NEUTROPHILS # 2.4 10^3/uL (1.5-8.5); NEUTROPHILS % 43.6 % (36.0-66.0); RED BLOOD COUNT 2.92 10^6/uL (4.00-5.40); WHITE BLOOD COUNT 5.4 10^3/uL (4.0-10.0)
[2024-05-30 03:39] LABS: PLATELET COUNT, AUTOMATED 57 10^3/uL (150-450)
[2024-05-30 03:50] LABS: THYROID STIMULATING HORMONE 0.954 uIU/ML (0.55-4.78)
[2024-05-30 03:53] LABS: ALBUMIN 2.3 G/DL (3.2-5.2); ALKALINE PHOSPHATASE 83 U/L (46-116); ALT/SGPT 12 U/L (7.0-40); AST/SGOT 25 U/L (<34); BILIRUBIN,DIRECT < 0.1 MG/DL (<0.4); BILIRUBIN,TOTAL < 0.2 MG/DL (0.3-1.2); BLOOD UREA NITROGEN 51 MG/DL (9-23); CALCIUM LEVEL 6.9 MG/DL (8.3-10.6); CARBON DIOXIDE LEVEL 17 MMOL/L (20-31); CHLORIDE LEVEL 121 MMOL/L (98-107); CPK CREATINE PHOSPHOKINASE 109 U/L (34-145); CREATININE FOR GFR 2.32 MG/DL (0.55-1.30); GLOMERULAR FILTRATION RATE 22.2 (>45); GLUCOSE, FASTING 101 MG/DL (74-106); MB/CK RELATIVE INDEX 1.83 (< OR =4); POTASSIUM SERUM 4.1 MMOL/L (3.5-5.1); SODIUM LEVEL 147 MMOL/L (136-145); TOTAL PROTEIN 4.7 G/DL (5.7-8.2)
[2024-05-30 06:20] VITALS: TEMP 97
[2024-05-30 06:35] VITALS: O2SAT 98
[2024-05-30 06:46] VITALS: BP 108/60
[2024-05-30] MEDS ORDERED: MAGN64TASA PO (08:29)
[2024-05-30] MEDS ORDERED: SIMV80TA13 PO (08:29)
[2024-05-30] MEDS ORDERED: HOME MED LIST COMPLETE! XX SCH (08:30)
[2024-05-30] MEDS ORDERED: GLUCOSE 4 GM CHEW PO PRN (08:40)
[2024-05-30] MEDS ORDERED: GLUCAGON INJ 1MG VIAL SC PRN (08:40)
[2024-05-30] MEDS ORDERED: DEXTROSE 50% 50ML SYRINGE IV PRN (08:40)
[2024-05-30] MEDS ORDERED: INSULIN LISPRO (NovoLOG) PER UNIT SC SCH ×2 (12:00→21:00)
== END 2024-05-30 09:02 | disposition left against medical advice (07) ==
LOC: M ED 01:56 → EDBD 01:56 → UNDOADMIN 08:35 → M ED INP 08:35 → M ED 09:02 → UNDODISIN 09:03
DX: R55 Syncope and collapse (principal); R00.1 Bradycardia, unspecified; Z98.84 Bariatric surgery status; I25.10 Atherosclerotic heart disease of native coronary artery without angina pectoris; I12.9 Hypertensive chronic kidney disease with stage 1 through stage 4 chronic kidney disease, or unspecified chronic kidney disease; E78.00 Pure hypercholesterolemia, unspecified; N18.30 Chronic kidney disease, stage 3 unspecified; Z79.899 Other long term (current) drug therapy

== ENCOUNTER 2024-06-03 16:31 | Emergency (ER) | payer OTHER, MEDICAID ==
[~2024-06-03] VITALS: Ht 167.6 cm; Wt 109.1 kg
[~2024-06-03 16:31] MED LIST changes: +MAGN64TASA PO
[2024-06-03 18:00] LABS: BASO % 0.7 % (0.0-1.0); EOS # 0.3 10^3/uL (0.0-0.5); EOS % 5.3 % (0.0-3.0); HEMATOCRIT 28.5 % (36.0-47.0); LYMPH # 2.3 10^3/uL (1.5-5.0); LYMPH % 40.6 % (24.0-44.0); MEAN CORPUSCULAR HEMOGLOBIN 30.2 pg (27.0-33.0); MEAN CORPUSCULAR HGB CONC 31.6 g/dl (32.0-36.5); MEAN CORPUSCULAR VOLUME 95.6 fl (80.0-96.0); MONO # 0.5 10^3/uL (0.0-0.8); MONO % 8.5 % (2.0-8.0); NEUTROPHILS # 2.5 10^3/uL (1.5-8.5); NEUTROPHILS % 44.7 % (36.0-66.0); PLATELET COUNT, AUTOMATED 134 10^3/uL (150-450); RED BLOOD COUNT 2.98 10^6/uL (4.00-5.40); WHITE BLOOD COUNT 5.7 10^3/uL (4.0-10.0)
[2024-06-03 18:03] LABS: CALCIUM LEVEL 8.4 MG/DL (8.3-10.6); CK-MB VALUE MASS 2.9 NG/ML (<3.6); CREATININE FOR GFR 2.05 MG/DL (0.55-1.30); GLOMERULAR FILTRATION RATE 25.6 (>45); MAGNESIUM LEVEL 1.5 MG/DL (1.8-2.4); MB/CK RELATIVE INDEX 1.33 (< OR =4); POTASSIUM SERUM 4.4 MMOL/L (3.5-5.1)
[2024-06-03 18:05] LABS: FREE T4 0.95 NG/DL (0.89-1.76); THYROID STIMULATING HORMONE 1.264 uIU/ML (0.55-4.78)
[2024-06-03 18:06] LABS: INR 1.25; PARTIAL THROMBOPLASTIN TIME 33.6 SECONDS (24.8-34.2); PROTHROMBIN TIME 15.3 SECONDS (12.5-14.5)
[2024-06-03 19:45] VITALS: TEMP 98
[2024-06-03 21:30] VITALS: BP 154/55; O2SAT 99
[2024-06-03 22:51] LABS: CK-MB VALUE MASS 2.7 NG/ML (<3.6); MB/CK RELATIVE INDEX 1.24 (< OR =4)
== END 2024-06-03 21:46 | disposition left against medical advice (07) ==
LOC: M ED 16:31
DX: R55 Syncope and collapse (principal); R00.1 Bradycardia, unspecified; I45.10 Unspecified right bundle-branch block; E11.9 Type 2 diabetes mellitus without complications; I12.9 Hypertensive chronic kidney disease with stage 1 through stage 4 chronic kidney disease, or unspecified chronic kidney disease; E78.5 Hyperlipidemia, unspecified; K21.9 Gastro-esophageal reflux disease without esophagitis; Z79.4 Long term (current) use of insulin; Z79.899 Other long term (current) drug therapy; Z53.9 Procedure and treatment not carried out, unspecified reason

== ENCOUNTER 2024-06-05 01:12 | Emergency (ER) | payer OTHER, MEDICAID ==
[~2024-06-05] VITALS: Ht 167.6 cm; Wt 105.9 kg
[2024-06-05 01:53] LABS: BASO % 0.6 % (0.0-1.0); EOS # 0.4 10^3/uL (0.0-0.5); HEMATOCRIT 31.1 % (36.0-47.0); LYMPH # 2.3 10^3/uL (1.5-5.0); LYMPH % 33.7 % (24.0-44.0); MEAN CORPUSCULAR HEMOGLOBIN 30.2 pg (27.0-33.0); MEAN CORPUSCULAR HGB CONC 32.2 g/dl (32.0-36.5); MONO # 0.6 10^3/uL (0.0-0.8); MONO % 8.9 % (2.0-8.0); NEUTROPHILS # 3.5 10^3/uL (1.5-8.5); NEUTROPHILS % 50.7 % (36.0-66.0); PLATELET COUNT, AUTOMATED 137 10^3/uL (150-450); RED BLOOD COUNT 3.31 10^6/uL (4.00-5.40); WHITE BLOOD COUNT 6.9 10^3/uL (4.0-10.0)
[2024-06-05 02:18] LABS: CALCIUM LEVEL 8.8 MG/DL (8.3-10.6); CK-MB VALUE MASS 3.3 NG/ML (<3.6); CREATININE FOR GFR 1.98 MG/DL (0.55-1.30); GLOMERULAR FILTRATION RATE 26.6 (>45); MB/CK RELATIVE INDEX 1.54 (< OR =4); POTASSIUM SERUM 4.9 MMOL/L (3.5-5.1)
[2024-06-05 03:17] LABS: CK-MB VALUE MASS 3.4 NG/ML (<3.6)
[2024-06-05 03:21] LABS: MB/CK RELATIVE INDEX 1.78 (< OR =4)
[2024-06-05 06:30] VITALS: BP 144/78; TEMP 97.8; O2SAT 98
== END 2024-06-05 06:52 | disposition home or self-care (01) ==
LOC: M ED 01:12
DX: R07.89 Other chest pain (principal); I44.7 Left bundle-branch block, unspecified; E11.9 Type 2 diabetes mellitus without complications; E78.5 Hyperlipidemia, unspecified; I12.9 Hypertensive chronic kidney disease with stage 1 through stage 4 chronic kidney disease, or unspecified chronic kidney disease; G47.33 Obstructive sleep apnea (adult) (pediatric); Z79.4 Long term (current) use of insulin; Z79.899 Other long term (current) drug therapy

== ENCOUNTER 2024-06-18 22:20 | Observation (INO) | payer OTHER, MEDICAID ==
[2024-06-18 22:52] LABS: BASO % 0.6 % (0.0-1.0); EOS # 0.3 10^3/uL (0.0-0.5); EOS % 4.6 % (0.0-3.0); HEMATOCRIT 28.9 % (36.0-47.0); HEMOGLOBIN 9.2 g/dl (12.0-15.5); LYMPH # 2.6 10^3/uL (1.5-5.0); LYMPH % 41.4 % (24.0-44.0); MEAN CORPUSCULAR HEMOGLOBIN 30.4 pg (27.0-33.0); MEAN CORPUSCULAR HGB CONC 31.8 g/dl (32.0-36.5); MEAN CORPUSCULAR VOLUME 95.4 fl (80.0-96.0); MONO # 0.6 10^3/uL (0.0-0.8); MONO % 9.8 % (2.0-8.0); NEUTROPHILS # 2.7 10^3/uL (1.5-8.5); NEUTROPHILS % 43.4 % (36.0-66.0); PLATELET COUNT, AUTOMATED 123 10^3/uL (150-450); RED BLOOD COUNT 3.03 10^6/uL (4.00-5.40); WHITE BLOOD COUNT 6.3 10^3/uL (4.0-10.0)
[2024-06-18 23:18] LABS: CALCIUM LEVEL 8.2 MG/DL (8.3-10.6); CREATININE FOR GFR 2.12 MG/DL (0.55-1.30); GLOMERULAR FILTRATION RATE 24.6 (>45); POTASSIUM SERUM 3.8 MMOL/L (3.5-5.1)
[2024-06-18 23:56] LABS: CK-MB VALUE MASS 1.4 NG/ML (<3.6); MAGNESIUM LEVEL 1.4 MG/DL (1.8-2.4)
[2024-06-19 00:01] LABS: FREE T4 0.87 NG/DL (0.89-1.76); THYROID STIMULATING HORMONE 2.195 uIU/ML (0.55-4.78)
[2024-06-19 00:08] LABS: MB/CK RELATIVE INDEX 1.55 (< OR =4)
[2024-06-19] MEDS ORDERED: ACETAMINOPHEN TAB 650MG DOSE (2X325MG) PO PRN (02:40)
[2024-06-19] MEDS ORDERED: DEXTROSE 50% 50ML SYRINGE IV PRN (02:45)
[2024-06-19] MEDS ORDERED: GLUCOSE 4 GM CHEW PO PRN (02:45)
[2024-06-19] MEDS ORDERED: GLUCAGON INJ 1MG VIAL SC PRN (02:45)
[2024-06-19] MEDS ORDERED: HYDR-161 PO (03:16)
[2024-06-19] MEDS: MAG SULF 1GM/100ML (MAG RUN) 1 GM in IV 1 EA IV ONE (03:54)
[2024-06-19 04:30] VITALS: BP 162/81; TEMP 97.7; O2SAT 99
[2024-06-19] MEDS: HEPARIN SOD (PORCINE) 5000UNITS/ML 1ML VIAL/SYRINGE SC SCH (05:10)
[2024-06-19] MEDS: INSULIN LISPRO (NovoLOG) PER UNIT SC SCH (07:30)
[2024-06-19 08:00] VITALS: BP 147/78; TEMP 97.5; O2SAT 96
[2024-06-19 12:00] VITALS: BP 164/91; TEMP 97.7; O2SAT 98
[2024-06-19] MEDS: **hydrALAZINE HCL** 25 MG TAB PO SCH (13:19)
[2024-06-19] MEDS: VITAMIN D 1,000 INTERNATIONAL UNITS TABLET PO SCH (13:19)
[2024-06-19] MEDS: allopurinoL 300 MG TAB PO SCH (13:19)
[2024-06-19] MEDS: MAGNESIUM OXIDE 400MG TAB (MAG-OX) PO SCH (13:19)
[2024-06-19 13:20] VITALS: BP 164/91
[2024-06-19] MEDS: amLODIPine 5 MG TAB PO ONE (13:20)
[2024-06-19] MEDS: FUROSEMIDE 20 MG TAB PO SCH (13:20)
[2024-06-19] MEDS: CETIRIZINE (ZyrTEC) 10 MG TAB PO ONE (13:20)
[2024-06-19] MEDS: MECLIZINE 25 MG TABLET PO ONE (13:20)
[2024-06-19] MEDS: GABAPENTIN 300 MG CAP PO SCH (13:26)
[2024-06-19] MEDS: LEVEMIR (INSULIN DETEMIR) 1 UNITS/0.01ML SC SCH (13:38)
[2024-06-19] MEDS: FLUTICASONE PROP 0.05% NASAL SPRAY 16 GM (FLONASE) NARES SCH (13:38)
[2024-06-19] MEDS ORDERED: GABA-282 PO (15:48)
[2024-06-19] MEDS ORDERED: **hydrALAZINE** 10 MG TAB PO ONE (15:50)
[2024-06-19 15:55] VITALS: BP 138/80
[2024-06-19 16:00] VITALS: BP 163/91; TEMP 97.5; O2SAT 100
[2024-06-19] MEDS ORDERED: cloNIDine 0.2 MG TAB PO ONE (16:00)
[2024-06-19] MEDS ORDERED: DIVALPROEX 500 MG TAB PO SCH (21:00)
[2024-06-20] MEDS ORDERED: CINACALCET 30 MG TAB (SENSIPAR) PO SCH (09:00)
[2024-06-20] MEDS ORDERED: CETIRIZINE (ZyrTEC) 10 MG TAB PO SCH (09:00)
[2024-06-20] MEDS ORDERED: amLODIPine 5 MG TAB PO SCH (09:00)
[2024-06-20] MEDS ORDERED: MECLIZINE 25 MG TABLET PO SCH (09:00)
== END 2024-06-19 17:58 | disposition home or self-care (01) ==
LOC: M ED 22:20 → EDBD 22:20 → M ED INP 22:21 → M MSPAV 06-19 04:38
PROVIDERS: ADMIT Preventive Medicine Undersea and Hyperbaric Medicine; ATTEND Student in an Organized Health Care Education/Training Program
DX: R55 Syncope and collapse (principal); R07.9 Chest pain, unspecified; T42.6X1A Poisoning by other antiepileptic and sedative-hypnotic drugs, accidental (unintentional), initial encounter; I12.9 Hypertensive chronic kidney disease with stage 1 through stage 4 chronic kidney disease, or unspecified chronic kidney disease; Z91.128 Patient's intentional underdosing of medication regimen for other reason; E83.42 Hypomagnesemia; M19.90 Unspecified osteoarthritis, unspecified site; G25.81 Restless legs syndrome; K21.9 Gastro-esophageal reflux disease without esophagitis; E11.42 Type 2 diabetes mellitus with diabetic polyneuropathy; N18.32 Chronic kidney disease, stage 3b; E11.22 Type 2 diabetes mellitus with diabetic chronic kidney disease; E78.5 Hyperlipidemia, unspecified; Z86.711 Personal history of pulmonary embolism; Z86.718 Personal history of other venous thrombosis and embolism; F33.9 Major depressive disorder, recurrent, unspecified; G47.33 Obstructive sleep apnea (adult) (pediatric); Z90.49 Acquired absence of other specified parts of digestive tract; Z98.890 Other specified postprocedural states; Z82.41 Family history of sudden cardiac death; Z79.899 Other long term (current) drug therapy
CPT/HCPCS: 36415; 71045; 80048; 82550; 82553; 83735; 84439; 84443; 84484; 85025; 87486; 87581; 87633; 87798; 93005; 96365; 96372; 99285; G0378; J1815; J3475

== ENCOUNTER 2024-08-07 14:45 | Observation (INO) | payer OTHER, MEDICAID ==
[~2024-08-07] VITALS: Ht 165.1 cm; Wt 107.3 kg
[~2024-08-07 14:45] MED LIST changes: -CYCL5TAB PO; +CYCL5TAB4 PO; +GABA-1172 PO; -GABA-282 PO
[2024-08-07] MEDS: NS 1,000 ML IV ONE (15:15)
[2024-08-07 15:20] LABS: BASO % 0.5 % (0.0-1.0); EOS # 0.2 10^3/uL (0.0-0.5); EOS % 3.4 % (0.0-3.0); HEMATOCRIT 32.7 % (36.0-47.0); HEMOGLOBIN 10.6 g/dl (12.0-15.5); LYMPH # 2.7 10^3/uL (1.5-5.0); LYMPH % 41.1 % (24.0-44.0); MEAN CORPUSCULAR HEMOGLOBIN 30.7 pg (27.0-33.0); MEAN CORPUSCULAR HGB CONC 32.4 g/dl (32.0-36.5); MEAN CORPUSCULAR VOLUME 94.8 fl (80.0-96.0); MONO # 0.7 10^3/uL (0.0-0.8); NEUTROPHILS # 2.8 10^3/uL (1.5-8.5); NEUTROPHILS % 43.8 % (36.0-66.0); PLATELET COUNT, AUTOMATED 168 10^3/uL (150-450); RED BLOOD COUNT 3.45 10^6/uL (4.00-5.40); WHITE BLOOD COUNT 6.4 10^3/uL (4.0-10.0)
[2024-08-07 15:33] LABS: INR 1.11; PARTIAL THROMBOPLASTIN TIME 26.6 SECONDS (24.8-34.2); PROTHROMBIN TIME 14.6 SECONDS (12.5-14.5)
[2024-08-07 15:41] LABS: LIPASE 30 U/L (12-53)
[2024-08-07 15:43] LABS: CPK CREATINE PHOSPHOKINASE 75 U/L (34-145)
[2024-08-07 16:02] LABS: ALKALINE PHOSPHATASE 118 U/L (35-104); ALT/SGPT 16 U/L (7.0-40); AST/SGOT 17 U/L (<34); BILIRUBIN,DIRECT 0.1 MG/DL (<0.4); BILIRUBIN,TOTAL 0.3 MG/DL (0.3-1.2); BLOOD UREA NITROGEN 34 MG/DL (9-23); CALCIUM LEVEL 9.3 MG/DL (8.3-10.6); CARBON DIOXIDE LEVEL 26 MMOL/L (20-31); CHLORIDE LEVEL 113 MMOL/L (98-107); CK-MB VALUE MASS < 1.0 NG/ML (<3.6); CREATININE FOR GFR 1.78 MG/DL (0.55-1.30); FREE T4 0.98 NG/DL (0.89-1.76); GLOMERULAR FILTRATION RATE 30.1 (>45); GLUCOSE, FASTING 130 MG/DL (74-106); MAGNESIUM LEVEL 1.6 MG/DL (1.8-2.4); MB/CK RELATIVE INDEX 1.33 (< OR =4); POTASSIUM SERUM 4.1 MMOL/L (3.5-5.1); SODIUM LEVEL 146 MMOL/L (136-145); THYROID STIMULATING HORMONE 2.797 uIU/ML (0.55-4.78); TOTAL PROTEIN 6.5 G/DL (5.7-8.2)
[2024-08-07 16:33] LABS: ETHYL ALCOHOL (ETHANOL) < 0.003 % (0.000-0.010)
[2024-08-07 16:35] LABS: SALICYLATE LEVEL < 3.0 MG/DL (<30)
[2024-08-07] MEDS: MAG SULF 1GM/100ML (MAG RUN) 1 GM in IV 1 EA IV ONE (16:45)
[2024-08-07] MEDS: LIDOCAINE 2% 5ML JELLY UROJET TOP ONE (17:00)
[2024-08-07 17:12] LABS: CK-MB VALUE MASS < 1.0 NG/ML (<3.6); CPK CREATINE PHOSPHOKINASE 92 U/L (34-145); MB/CK RELATIVE INDEX 1.08 (< OR =4)
[2024-08-07 17:35] LABS: AMPHETAMINES LEVEL URINE NEGATIVE (NEGATIVE); BARBITURATES URINE NEGATIVE (NEGATIVE); BENZODIAZEPINES URINE NEGATIVE (NEGATIVE); COCAINE METABOLITE URINE NEGATIVE (NEGATIVE); METHADONE URINE NEGATIVE (NEGATIVE); OPIATES URINE NEGATIVE (NEGATIVE)
[2024-08-07 17:36] LABS: CANNABINOIDS URINE NEGATIVE (NEGATIVE); PHENCYCLIDINE URINE NEGATIVE (NEGATIVE)
[2024-08-07] MEDS ORDERED: SIMV-254 PO (18:08)
[2024-08-07] MEDS ORDERED: HOME MED LIST COMPLETE! XX SCH (18:10)
[2024-08-07] MEDS ORDERED: FLUTICASONE PROP 0.05% NASAL SPRAY 16 GM (FLONASE) NARES PRN (19:15)
[2024-08-07] MEDS: GABAPENTIN 300 MG CAP PO SCH (20:37)
[2024-08-07] MEDS: DIVALPROEX 250MG TAB PO SCH (20:38)
[2024-08-07] MEDS: allopurinoL 300 MG TAB PO SCH (20:38)
[2024-08-07 21:20] VITALS: BP 149/76; TEMP 97.9; O2SAT 98
[2024-08-07] MEDS: MAGNESIUM GLUCONATE 500 MG TAB PO SCH (21:23)
[2024-08-07] MEDS: rOPINIRole 1MG TAB PO SCH (21:23)
[2024-08-07] MEDS: SIMVASTATIN 40 MG TAB PO SCH (21:23)
[2024-08-08] MEDS ORDERED: CETIRIZINE (ZyrTEC) 10 MG TAB PO SCH (09:00)
[2024-08-08] MEDS ORDERED: LEVEMIR (INSULIN DETEMIR) 1 UNITS/0.01ML SC SCH (09:00)
== END 2024-08-07 23:47 | disposition left against medical advice (07) ==
LOC: M ED 14:45 → EDBD 14:45 → M ED INP 14:46 → M MSPAV 21:05
PROVIDERS: ADMIT Internal Medicine Nephrology; ATTEND Internal Medicine Nephrology
DX: I95.0 Idiopathic hypotension (principal); R00.1 Bradycardia, unspecified; R55 Syncope and collapse; R42 Dizziness and giddiness; E11.42 Type 2 diabetes mellitus with diabetic polyneuropathy; G25.81 Restless legs syndrome; E83.42 Hypomagnesemia; M10.9 Gout, unspecified; Z98.84 Bariatric surgery status; I12.9 Hypertensive chronic kidney disease with stage 1 through stage 4 chronic kidney disease, or unspecified chronic kidney disease; E78.5 Hyperlipidemia, unspecified; G47.33 Obstructive sleep apnea (adult) (pediatric); N18.9 Chronic kidney disease, unspecified; E66.01 Morbid (severe) obesity due to excess calories; Z82.41 Family history of sudden cardiac death; Z98.890 Other specified postprocedural states; Z90.49 Acquired absence of other specified parts of digestive tract; Z98.61 Coronary angioplasty status; Z79.899 Other long term (current) drug therapy; Z79.4 Long term (current) use of insulin
CPT/HCPCS: 71045; 80047; 80048; 80076; 80143; 80164; 80307; 81001; 82077; 82550; 82553; 83690; 83735; 84439; 84443; 84484; 85025; 85610; 85730; 86850; 86900; 86901; 87040; 87086; 87486; 87581; 87633; 87798; 93005; 93041; 94760; 96365; 99285; G0378; J3475

== ENCOUNTER → 2024-10-05 | Outpatient (CLI) | payer OTHER, MEDICAID ==
[~2024-10-05] MED LIST changes: +SIMV-254 PO
[2024-10-05 18:52] LABS: HEMOGLOBIN A1c 7.8 % (4.0-6.0)
[2024-10-05 19:07] LABS: ALBUMIN 3.6 G/DL (3.2-5.2); BILIRUBIN,TOTAL 0.4 MG/DL (0.3-1.2); CALCIUM LEVEL 9.3 MG/DL (8.3-10.6); CREATININE FOR GFR 1.56 MG/DL (0.55-1.30); MAGNESIUM LEVEL 1.4 MG/DL (1.8-2.4); POTASSIUM SERUM 3.9 MMOL/L (3.5-5.1); TOTAL PROTEIN 7.7 G/DL (5.7-8.2)
== END ==
LOC: M PLALAB 15:21
PROVIDERS: ATTEND Family Medicine
DX: I10 Essential (primary) hypertension (principal); E83.42 Hypomagnesemia; E11.22 Type 2 diabetes mellitus with diabetic chronic kidney disease

== ENCOUNTER → 2024-10-05 | Outpatient (REF) | payer OTHER, MEDICAID | LOC: M SFHCPLAZ 15:04 | PROVIDERS: ATTEND Family Medicine | DX: I10 Essential (primary) hypertension (principal); E83.42 Hypomagnesemia; E11.22 Type 2 diabetes mellitus with diabetic chronic kidney disease ==

== ENCOUNTER 2024-11-27 22:33 | Emergency (ER) | payer MEDICARE, MEDICAID ==
[~2024-11-27] VITALS: Ht 167.6 cm; Wt 113.6 kg
[2024-11-27] MEDS: POTASSIUM CHLORIDE 10MEQ SR TABLET PO ONE (00:55)
[2024-11-27 23:20] VITALS: TEMP 98.9
[2024-11-27 23:20] LABS: BASO # 0.1 10^3/uL (0.0-0.2); EOS # 0.3 10^3/uL (0.0-0.5); EOS % 4.4 % (0.0-3.0); HEMATOCRIT 35.8 % (36.0-47.0); HEMOGLOBIN 11.4 g/dl (12.0-15.5); LYMPH # 2.7 10^3/uL (1.5-5.0); LYMPH % 42.3 % (24.0-44.0); MEAN CORPUSCULAR HGB CONC 31.8 g/dl (32.0-36.5); MEAN CORPUSCULAR VOLUME 94.2 fl (80.0-96.0); MONO # 0.7 10^3/uL (0.0-0.8); MONO % 10.3 % (2.0-8.0); NEUTROPHILS # 2.6 10^3/uL (1.5-8.5); NEUTROPHILS % 41.8 % (36.0-66.0); PLATELET COUNT, AUTOMATED 167 10^3/uL (150-450); WHITE BLOOD COUNT 6.3 10^3/uL (4.0-10.0)
[2024-11-27 23:36] LABS: INR 1.13; PROTHROMBIN TIME 14.8 SECONDS (12.5-14.5)
[2024-11-27] MEDS: NS 500 ML IV ONE (23:40)
[2024-11-27 23:46] LABS: ALBUMIN 3.2 G/DL (3.2-5.2); BILIRUBIN,DIRECT 0.2 MG/DL (<0.4); BILIRUBIN,TOTAL 0.4 MG/DL (0.3-1.2); CALCIUM LEVEL 9.2 MG/DL (8.3-10.6); CK-MB VALUE MASS 2.1 NG/ML (<3.6); CREATININE FOR GFR 2.04 MG/DL (0.55-1.30); GLOMERULAR FILTRATION RATE 25.7 (>45); MB/CK RELATIVE INDEX 1.72 (< OR =4); POTASSIUM SERUM 3.4 MMOL/L (3.5-5.1); TOTAL PROTEIN 6.7 G/DL (5.7-8.2)
[2024-11-27 23:47] LABS: FREE T4 1.14 NG/DL (0.89-1.76)
[2024-11-27 23:48] LABS: THYROID STIMULATING HORMONE 2.249 uIU/ML (0.55-4.78)
[2024-11-28 01:07] LABS: KETONE, URINE AUTO RFX NEGATIVE (NEGATIVE); LEUKOCYTE ESTERASE UR AUTO RFX NEGATIVE (NEGATIVE); NITRITE, URINE AUTO RFX NEGATIVE (NEGATIVE); RBC, URINE AUTO RFX 1 /HPF (0-3); SQUAM EPITHELIAL CELL UR AURFX 1 /HPF (0-6); WBC, URINE AUTO RFX 1 /HPF (0-3)
[2024-11-28 01:45] LABS: CK-MB VALUE MASS 1.4 NG/ML (<3.6); MB/CK RELATIVE INDEX 0.9 (< OR =4)
[2024-11-28 03:01] VITALS: BP 163/80
[2024-11-28 04:15] VITALS: O2SAT 97
== END 2024-11-28 05:00 | disposition left against medical advice (07) ==
LOC: M ED 22:33
DX: R55 Syncope and collapse (principal); Z53.20 Procedure and treatment not carried out because of patient's decision for unspecified reasons; R94.31 Abnormal electrocardiogram [ECG] [EKG]; E11.9 Type 2 diabetes mellitus without complications; I12.9 Hypertensive chronic kidney disease with stage 1 through stage 4 chronic kidney disease, or unspecified chronic kidney disease; E78.5 Hyperlipidemia, unspecified; N18.9 Chronic kidney disease, unspecified; K21.9 Gastro-esophageal reflux disease without esophagitis; Z98.84 Bariatric surgery status; Z90.49 Acquired absence of other specified parts of digestive tract; Z86.718 Personal history of other venous thrombosis and embolism; Z90.5 Acquired absence of kidney; M48.061 Spinal stenosis, lumbar region without neurogenic claudication; I70.0 Atherosclerosis of aorta; Z79.899 Other long term (current) drug therapy; Z79.4 Long term (current) use of insulin

== ENCOUNTER 2024-12-04 15:46 | Observation (INO) | payer MEDICARE, MEDICAID ==
[~2024-12-04] VITALS: Ht 165.1 cm; Wt 97.5 kg
[2024-12-04] MEDS: NS (Normal Saline) 0.9% 1,000 ML IV ONE (16:12)
[2024-12-04 16:20] LABS: BASO % 0.7 % (0.0-1.0); EOS # 0.2 10^3/uL (0.0-0.5); EOS % 2.5 % (0.0-3.0); HEMATOCRIT 34.4 % (36.0-47.0); HEMOGLOBIN 10.9 g/dl (12.0-15.5); LYMPH # 2.1 10^3/uL (1.5-5.0); LYMPH % 35.4 % (24.0-44.0); MEAN CORPUSCULAR HEMOGLOBIN 30.3 pg (27.0-33.0); MEAN CORPUSCULAR HGB CONC 31.7 g/dl (32.0-36.5); MEAN CORPUSCULAR VOLUME 95.6 fl (80.0-96.0); MONO # 0.5 10^3/uL (0.0-0.8); MONO % 8.5 % (2.0-8.0); NEUTROPHILS # 3.2 10^3/uL (1.5-8.5); NEUTROPHILS % 52.7 % (36.0-66.0); PLATELET COUNT, AUTOMATED 162 10^3/uL (150-450)
[2024-12-04 16:21] LABS: APPEARANCE, URINE CLEAR (CLEAR); BACTERIA, URINE AUTO NEGATIVE (NEGATIVE); BILIRUBIN, URINE AUTO NEGATIVE (NEGATIVE); BLOOD, URINE BLOOD NEGATIVE (NEGATIVE); COLOR, URINE YELLOW (YELLOW); GLUCOSE, URINE (UA) AUTO 3+ mg/dL (NEGATIVE); KETONE, URINE AUTO NEGATIVE (NEGATIVE); LEUKOCYTE ESTERASE, URINE AUTO 1+ (NEGATIVE); MUCUS, URINE SMALL (NEGATIVE); NITRITE, URINE AUTO NEGATIVE (NEGATIVE); PROTEIN, URINE AUTO 2+ mg/dL (NEGATIVE); RBC, URINE AUTO 1 /HPF (0-3); SQUAMOUS EPITHELIAL CELL UR AU 2 /HPF (0-6); UROBILINOGEN, URINE AUTO 0.2 mg/dL (0.0-2.0); WBC, URINE AUTO 13 /HPF (0-3)
[2024-12-04 16:31] LABS: INR 1.25
[2024-12-04 16:46] LABS: C REACTIVE PROTEIN QUANTITATIV < 0.50 MG/DL (<1.0)
[2024-12-04 16:47] LABS: ALKALINE PHOSPHATASE 151 U/L (35-104); ALT/SGPT 12 U/L (7.0-40); AST/SGOT 19 U/L (<34); BILIRUBIN,DIRECT 0.2 MG/DL (<0.4); BILIRUBIN,TOTAL 0.5 MG/DL (0.3-1.2); BLOOD UREA NITROGEN 38 MG/DL (9-23); CARBON DIOXIDE LEVEL 25 MMOL/L (20-31); CHLORIDE LEVEL 110 MMOL/L (98-107); CK-MB VALUE MASS 2.2 NG/ML (<3.6); CPK CREATINE PHOSPHOKINASE 96 U/L (34-145); CREATININE FOR GFR 2.69 MG/DL (0.55-1.30); GLOMERULAR FILTRATION RATE 18.7 (>45); GLUCOSE, FASTING 242 MG/DL (74-106); MB/CK RELATIVE INDEX 2.29 (< OR =4); POTASSIUM SERUM 3.7 MMOL/L (3.5-5.1); SODIUM LEVEL 146 MMOL/L (136-145); TOTAL PROTEIN 6.4 G/DL (5.7-8.2)
[2024-12-04 16:59] LABS: PROCALCITONIN 0.15 ng/ml
[2024-12-04] MEDS: NS (Normal Saline) 0.9% 1,000 ML IV SCH ×2 (17:37→18:40)
[2024-12-04 18:17] LABS: CK-MB VALUE MASS 1.6 NG/ML (<3.6); MB/CK RELATIVE INDEX 1.39 (< OR =4)
[2024-12-04] MEDS ORDERED: DEXTROSE 50% 50ML SYRINGE IV PRN (18:30)
[2024-12-04] MEDS ORDERED: GLUCAGON INJ 1MG VIAL SC PRN (18:30)
[2024-12-04] MEDS ORDERED: GLUCOSE 4 GM CHEW PO PRN (18:30)
[2024-12-04] MEDS ORDERED: MAALOX 30 ML SUSP *UDC PO PRN (18:30)
[2024-12-04] MEDS: cefTRIAXone SOD 1 GM in DEXTROSE 5% (D5W) ADV/MINI-BAG 50 ML IV SCH (20:37)
[2024-12-04] MEDS: SIMVASTATIN 40 MG TAB PO SCH (21:00)
[2024-12-04] MEDS: GABAPENTIN 300 MG CAP PO SCH (21:00)
[2024-12-04] MEDS: allopurinoL 300 MG TAB PO SCH (21:00)
[2024-12-04] MEDS: tiZANidine 4 MG TAB PO SCH (21:00)
[2024-12-04] MEDS: FLUTICASONE PROP 0.05% NASAL SPRAY 16 GM (FLONASE) NARES SCH (21:00)
[2024-12-04] MEDS: INSULIN LISPRO (NovoLOG) PER UNIT SC SCH (21:00)
[2024-12-04] MEDS: rOPINIRole 1MG TAB PO SCH (21:00)
[2024-12-04] MEDS ORDERED: HOME MED LIST COMPLETE! XX SCH (21:20)
[2024-12-04] MEDS ORDERED: TRUL10IN PO (21:20)
[2024-12-04] MEDS ORDERED: JARD1TAB PO (21:20)
[2024-12-04] MEDS ORDERED: ELIQ5TAB PO (21:20)
[2024-12-04] MEDS: MECLIZINE 25 MG TABLET PO SCH (22:00)
[2024-12-04 22:25] VITALS: BP 101/62; TEMP 97.5; O2SAT 97
[2024-12-04] MEDS: LATANOPROST 0.005% OPHTH SOLN 2.5 ML OU SCH (22:56)
[2024-12-05 04:37] VITALS: BP 112/63; TEMP 98; O2SAT 98
[2024-12-05] MEDS: ACETAMINOPHEN 325 MG TAB PO PRN (04:53)
[2024-12-05 05:53] LABS: BASO % 0.6 % (0.0-1.0); EOS # 0.3 10^3/uL (0.0-0.5); EOS % 4.7 % (0.0-3.0); HEMATOCRIT 34.3 % (36.0-47.0); HEMOGLOBIN 10.8 g/dl (12.0-15.5); LYMPH # 3.1 10^3/uL (1.5-5.0); LYMPH % 44.9 % (24.0-44.0); MEAN CORPUSCULAR HGB CONC 31.5 g/dl (32.0-36.5); MEAN CORPUSCULAR VOLUME 95.3 fl (80.0-96.0); MONO # 0.6 10^3/uL (0.0-0.8); MONO % 8.2 % (2.0-8.0); NEUTROPHILS # 2.8 10^3/uL (1.5-8.5); NEUTROPHILS % 41.3 % (36.0-66.0); PLATELET COUNT, AUTOMATED 146 10^3/uL (150-450); WHITE BLOOD COUNT 6.8 10^3/uL (4.0-10.0)
[2024-12-05] MEDS ORDERED: HEPARIN SOD (PORCINE) 5000UNITS/ML 1ML VIAL/SYRINGE SC SCH (06:00)
[2024-12-05 06:14] LABS: CALCIUM LEVEL 9.1 MG/DL (8.3-10.6); CREATININE FOR GFR 2.23 MG/DL (0.55-1.30); GLOMERULAR FILTRATION RATE 23.2 (>45); MAGNESIUM LEVEL 1.6 MG/DL (1.8-2.4); POTASSIUM SERUM 4.3 MMOL/L (3.5-5.1)
[2024-12-05] MEDS ORDERED: D5W 1,000 ML IV SCH (07:00)
[2024-12-05 07:23] VITALS: BP 145/69; TEMP 97.6; O2SAT 98
[2024-12-05] MEDS: INSULIN LISPRO (NovoLOG) PER UNIT SC SCH (07:27)
[2024-12-05] MEDS ORDERED: MAG SULF 1GM/100ML (MAG RUN) 1 GM in IV 1 EA IV SCH (08:00)
[2024-12-05] MEDS ORDERED: MAGNESIUM GLUCONATE 500 MG TAB PO SCH (09:00)
[2024-12-05] MEDS ORDERED: CINACALCET 30 MG TAB (SENSIPAR) PO SCH (09:00)
[2024-12-05] MEDS ORDERED: APIXABAN 5 MG TAB (ELIQUIS) PO SCH (09:00)
[2024-12-05] MEDS ORDERED: CETIRIZINE (ZyrTEC) 10 MG TAB PO SCH (09:00)
== END 2024-12-05 08:43 | disposition left against medical advice (07) ==
LOC: M ED 15:46 → EDBD 15:46 → M ED INP 15:47 → M PCU 22:16
PROVIDERS: ADMIT Internal Medicine; ATTEND Internal Medicine
DX: R55 Syncope and collapse (principal); R00.1 Bradycardia, unspecified; I95.9 Hypotension, unspecified; E86.1 Hypovolemia; N17.9 Acute kidney failure, unspecified; N18.30 Chronic kidney disease, stage 3 unspecified; Z90.5 Acquired absence of kidney; R30.0 Dysuria; D64.9 Anemia, unspecified; I11.0 Hypertensive heart disease with heart failure; I50.32 Chronic diastolic (congestive) heart failure; G35 Multiple sclerosis; F79 Unspecified intellectual disabilities; G47.30 Sleep apnea, unspecified; E11.9 Type 2 diabetes mellitus without complications; E78.5 Hyperlipidemia, unspecified; R56.9 Unspecified convulsions; G62.9 Polyneuropathy, unspecified; G25.81 Restless legs syndrome; K21.9 Gastro-esophageal reflux disease without esophagitis; E66.01 Morbid (severe) obesity due to excess calories; Z98.84 Bariatric surgery status; M10.9 Gout, unspecified; M19.90 Unspecified osteoarthritis, unspecified site; F32.A Depression, unspecified; E55.9 Vitamin D deficiency, unspecified; M85.80 Other specified disorders of bone density and structure, unspecified site; Z79.899 Other long term (current) drug therapy; Z79.01 Long term (current) use of anticoagulants
CPT/HCPCS: 36415; 71045; 80047; 80048; 80076; 81001; 82550; 82553; 83605; 83735; 84145; 84484; 85025; 85610; 85730; 86140; 86850; 86900; 86901; 87040; 87088; 87486; 87581; 87633; 87798; 93005; 93041; 94760; 96361; 96365; 99285; G0378; J0696

== ENCOUNTER → 2025-01-10 | Outpatient (CLI) | payer MEDICARE, MEDICAID ==
[~2025-01-10] MED LIST changes: +ELIQ5TAB PO; +JARD1TAB PO; +TRUL10IN PO
== END ==
LOC: M WHC 14:05
PROVIDERS: ATTEND Family Medicine
DX: Z78.0 Asymptomatic menopausal state (principal); Z13.820 Encounter for screening for osteoporosis; Z12.31 Encounter for screening mammogram for malignant neoplasm of breast; R92.313 Mammographic fatty tissue density, bilateral breasts; M85.851 Other specified disorders of bone density and structure, right thigh; M85.852 Other specified disorders of bone density and structure, left thigh

== ENCOUNTER → 2025-01-10 | Outpatient (CLI) | payer MEDICARE, MEDICAID ==
[2025-01-10 17:07] LABS: HEMATOCRIT 36.6 % (36.0-47.0); HEMOGLOBIN 11.4 g/dl (12.0-15.5); MEAN CORPUSCULAR HEMOGLOBIN 29.9 pg (27.0-33.0); MEAN CORPUSCULAR HGB CONC 31.1 g/dl (32.0-36.5); MEAN CORPUSCULAR VOLUME 96.1 fl (80.0-96.0); PLATELET COUNT, AUTOMATED 188 10^3/uL (150-450); RED BLOOD COUNT 3.81 10^6/uL (4.00-5.40); WHITE BLOOD COUNT 7.1 10^3/uL (4.0-10.0)
[2025-01-10 17:11] LABS: ALBUMIN 3.5 G/DL (3.2-5.2); BILIRUBIN,TOTAL 0.6 MG/DL (0.3-1.2); CALCIUM LEVEL 8.7 MG/DL (8.3-10.6); CHOLESTEROL RISK RATIO 2.77 (<5); CREATININE FOR GFR 1.56 MG/DL (0.55-1.30); FERRITIN 65.9 NG/ML (7.3-270.7); GLOMERULAR FILTRATION RATE 35.8 (>45); HDL CHOLESTEROL 36.8 MG/DL (>40); LDL CHOLESTEROL 36.6 MG/DL (<100); NON-HDL-C 65.2 MG/DL; POTASSIUM SERUM 3.8 MMOL/L (3.5-5.1); TOTAL 25(OH) VITAMIN D 27.2 NG/ML (20.0-100.0); TOTAL PROTEIN 6.6 G/DL (5.7-8.2)
[2025-01-10 17:37] LABS: HEMOGLOBIN A1c 7.4 % (4.0-6.0)
== END ==
LOC: M PLALAB 15:23
PROVIDERS: ATTEND Family Medicine
DX: E11.22 Type 2 diabetes mellitus with diabetic chronic kidney disease (principal); Z98.84 Bariatric surgery status; E55.9 Vitamin D deficiency, unspecified

== ENCOUNTER 2025-05-10 22:21 | Emergency (ER) | payer MEDICARE, MEDICAID ==
[~2025-05-10] VITALS: Ht 167.6 cm; Wt 87.3 kg
[~2025-05-10 22:21] MED LIST changes: -NYST-13 EXT; +NYST0.1C EXT
[2025-05-10 22:53] LABS: BASO # 0.0 10^3/uL (0.0-0.2); BASO % 0.6 % (0.0-1.0); EOS # 0.2 10^3/uL (0.0-0.5); EOS % 3.2 % (0.0-3.0); LYMPH # 2.5 10^3/uL (1.5-5.0); LYMPH % 40.0 % (24.0-44.0); MONO # 0.5 10^3/uL (0.0-0.8); MONO % 7.8 % (2.0-8.0); NEUTROPHILS # 3.0 10^3/uL (1.5-8.5); NEUTROPHILS % 48.2 % (36.0-66.0); PLATELET COUNT, AUTOMATED 135 10^3/uL (150-450)
[2025-05-10 23:19] LABS: CALCIUM LEVEL 7.9 MG/DL (8.3-10.6); CARBON DIOXIDE LEVEL 24.0 MMOL/L (20-31); CHLORIDE LEVEL 110.0 MMOL/L (98-107); CK-MB VALUE MASS 2.3 NG/ML (<3.6); CPK CREATINE PHOSPHOKINASE 56.0 U/L (34-145); CREATININE FOR GFR 1.78 MG/DL (0.55-1.30); GLOMERULAR FILTRATION RATE 30.3 (>39); MB/CK RELATIVE INDEX 4.1 (< OR =4); POTASSIUM SERUM 3.6 MMOL/L (3.5-5.1); SODIUM LEVEL 145.0 MMOL/L (136-145)
[2025-05-11] MEDS: MECLIZINE 25 MG TABLET PO ONE (00:33)
[2025-05-11] MEDS: ACETAMINOPHEN *IV* 1,000 MG in IV 1 EA IV ONE (00:33)
[2025-05-11 00:47] LABS: CK-MB VALUE MASS 1.9 NG/ML (<3.6)
[2025-05-11 00:48] LABS: CPK CREATINE PHOSPHOKINASE 67.0 U/L (34-145); MB/CK RELATIVE INDEX 2.83 (< OR =4)
[2025-05-11 02:21] VITALS: TEMP 98.2
[2025-05-11 05:55] VITALS: BP 152/78; O2SAT 98
== END 2025-05-11 06:00 | disposition home or self-care (01) ==
LOC: M ED 22:21
DX: R51.9 Headache, unspecified (principal); E86.0 Dehydration; I45.2 Bifascicular block; E11.9 Type 2 diabetes mellitus without complications; G47.33 Obstructive sleep apnea (adult) (pediatric); N18.30 Chronic kidney disease, stage 3 unspecified; F32.A Depression, unspecified; F10.10 Alcohol abuse, uncomplicated; Z79.01 Long term (current) use of anticoagulants; Z79.4 Long term (current) use of insulin; Z79.899 Other long term (current) drug therapy
CPT/HCPCS: 70450; 71045; 80048; 82550; 82553; 84484; 85025; 93005; 93041; 94760; 96374; 99285; J0131

== ENCOUNTER → 2025-06-19 | Outpatient (CLI) | payer MEDICARE, MEDICAID ==
[~2025-06-19] MED LIST changes: -COLC0.6T47 PO; +COLC0.6T53 PO
[2025-06-19 15:39] LABS: ESTIMATED AVERAGE GLUCOSE 157.0 MG/DL (60-110)
[2025-06-19 15:48] LABS: CALCIUM LEVEL 8.2 MG/DL (8.3-10.6); CARBON DIOXIDE LEVEL 28.0 MMOL/L (20-31); CHLORIDE LEVEL 109.0 MMOL/L (98-107); CREATININE FOR GFR 1.83 MG/DL (0.55-1.30); GLOMERULAR FILTRATION RATE 29.4 (>39); POTASSIUM SERUM 4.0 MMOL/L (3.5-5.1); SODIUM LEVEL 146.0 MMOL/L (136-145)
== END ==
LOC: M PLALAB 13:08
PROVIDERS: ATTEND Family Medicine
DX: E11.22 Type 2 diabetes mellitus with diabetic chronic kidney disease (principal); N18.32 Chronic kidney disease, stage 3b

== ENCOUNTER 2025-06-22 11:20 | Emergency (ER) | payer MEDICARE, MEDICAID ==
[~2025-06-22] VITALS: Ht 165.1 cm; Wt 84.8 kg
[2025-06-22] MEDS ORDERED: ANUS2.5C2 TOP (13:55)
[2025-06-22 14:21] LABS: BASO # 0.0 10^3/uL (0.0-0.2); BASO % 0.6 % (0.0-1.0); EOS # 0.2 10^3/uL (0.0-0.5); EOS % 2.5 % (0.0-3.0); LYMPH # 2.2 10^3/uL (1.5-5.0); LYMPH % 31.8 % (24.0-44.0); MONO # 0.5 10^3/uL (0.0-0.8); MONO % 7.2 % (2.0-8.0); NEUTROPHILS # 3.9 10^3/uL (1.5-8.5); NEUTROPHILS % 57.8 % (36.0-66.0); PLATELET COUNT, AUTOMATED 177 10^3/uL (150-450)
[2025-06-22 14:23] VITALS: BP 183/96; TEMP 96.5; O2SAT 99
== END 2025-06-22 14:27 | disposition home or self-care (01) ==
LOC: M ED 11:20
DX: K64.8 Other hemorrhoids (principal); E10.9 Type 1 diabetes mellitus without complications; E78.00 Pure hypercholesterolemia, unspecified; K21.9 Gastro-esophageal reflux disease without esophagitis; I12.9 Hypertensive chronic kidney disease with stage 1 through stage 4 chronic kidney disease, or unspecified chronic kidney disease; Z79.4 Long term (current) use of insulin; Z79.01 Long term (current) use of anticoagulants; Z79.899 Other long term (current) drug therapy

== ENCOUNTER 2025-06-26 20:23 | Observation (INO) | payer MEDICARE, MEDICAID ==
[~2025-06-26] VITALS: Ht 170.2 cm; Wt 84.5 kg
[~2025-06-26 20:23] MED LIST changes: +ANUS2.5C2 TOP
[2025-06-26 21:19] LABS: BASO # 0.0 10^3/uL (0.0-0.2); BASO % 0.4 % (0.0-1.0); EOS # 0.1 10^3/uL (0.0-0.5); EOS % 2.0 % (0.0-3.0); LYMPH # 2.6 10^3/uL (1.5-5.0); LYMPH % 37.6 % (24.0-44.0); MONO # 0.6 10^3/uL (0.0-0.8); MONO % 8.4 % (2.0-8.0); NEUTROPHILS # 3.5 10^3/uL (1.5-8.5); NEUTROPHILS % 51.5 % (36.0-66.0); PLATELET COUNT, AUTOMATED 165 10^3/uL (150-450)
[2025-06-26 21:36] LABS: APPEARANCE, URINE HAZY (CLEAR); BACTERIA, URINE AUTO 1+ (NEGATIVE); BILIRUBIN, URINE AUTO NEGATIVE (NEGATIVE); BLOOD, URINE BLOOD NEGATIVE (NEGATIVE); GLUCOSE, URINE (UA) AUTO 3+ mg/dL (NEGATIVE); KETONE, URINE AUTO NEGATIVE (NEGATIVE); LEUKOCYTE ESTERASE, URINE AUTO 1+ (NEGATIVE); NITRITE, URINE AUTO NEGATIVE (NEGATIVE); PROTEIN, URINE AUTO 2+ mg/dL (NEGATIVE); RBC, URINE AUTO 1 /HPF (0-3); SPECIFIC GRAVITY URINE AUTO 1.014 (1.002-1.035); SQUAMOUS EPITHELIAL CELL UR AU 10 /HPF (0-6); UROBILINOGEN, URINE AUTO 2.0 mg/dL (0.0-2.0); WBC, URINE AUTO 16 /HPF (0-3)
[2025-06-26 21:51] LABS: CK-MB VALUE MASS 1.7 NG/ML (<3.6)
[2025-06-26 21:54] LABS: ALT/SGPT 22.0 U/L (7.0-40); AST/SGOT 32.0 U/L (<34); CALCIUM LEVEL 8.8 MG/DL (8.3-10.6); CARBON DIOXIDE LEVEL 24.0 MMOL/L (20-31); CHLORIDE LEVEL 111.0 MMOL/L (98-107); CPK CREATINE PHOSPHOKINASE 57.0 U/L (34-145); CREATININE FOR GFR 1.61 MG/DL (0.55-1.30); GLOMERULAR FILTRATION RATE 34.2 (>39); MB/CK RELATIVE INDEX 2.98 (< OR =4); POTASSIUM SERUM 5.1 MMOL/L (3.5-5.1); SODIUM LEVEL 143.0 MMOL/L (136-145)
[2025-06-26] MEDS: MAG SULF 1GM/100ML (MAG RUN) 1 GM in IV 1 EA IV ONE (22:50)
[2025-06-26] MEDS: ACETAMINOPHEN *IV* 1,000 MG in IV 1 EA IV ONE (22:50)
[2025-06-26] MEDS: LABETALOL 100 MG/20 ML VIAL IV STA (22:50)
[2025-06-27] MEDS ORDERED: GLUCOSE 4 GM CHEW PO PRN (00:35)
[2025-06-27] MEDS ORDERED: GLUCAGON INJ 1 MG VIAL SC PRN (00:35)
[2025-06-27] MEDS ORDERED: DEXTROSE 50% 50 ML SYRINGE IV PRN (00:35)
[2025-06-27] MEDS: APIXABAN 5 MG TAB PO SCH (01:40)
[2025-06-27] MEDS: cefTRIAXone SOD 1 GM in DEXTROSE 5% (D5W) ADV/MINI-BAG 50 ML IV SCH (02:21)
[2025-06-27] MEDS: NS (Normal Saline) 0.9% 1,000 ML IV SCH (02:21)
[2025-06-27] MEDS ORDERED: ACETAMINOPHEN 325 MG TAB PO PRN (03:00)
[2025-06-27] MEDS ORDERED: NITROGLYCERIN 0.3 MG SUBL TAB SL PRN (04:00)
[2025-06-27] MEDS ORDERED: GI COCKTAIL 50 ML BTL(HYOSCYAMINE/MAALOX/LIDOCAINE VISCOUS)(1:3:1) PO ONE (04:00)
[2025-06-27] MEDS: NITROGLYCERIN 0.4 MG SUBL TABLET SL PRN (04:06)
[2025-06-27 06:08] LABS: PLATELET COUNT, AUTOMATED 167 10^3/uL (150-450)
[2025-06-27 06:30] VITALS: TEMP 97.4
[2025-06-27 06:42] LABS: CK-MB VALUE MASS 2.5 NG/ML (<3.6)
[2025-06-27 06:43] LABS: CPK CREATINE PHOSPHOKINASE 53.0 U/L (34-145); MB/CK RELATIVE INDEX 4.71 (< OR =4)
[2025-06-27 06:47] LABS: ALT/SGPT 25.0 U/L (7.0-40); AST/SGOT 33.0 U/L (<34); CALCIUM LEVEL 9.3 MG/DL (8.3-10.6); CARBON DIOXIDE LEVEL 28.0 MMOL/L (20-31); CHLORIDE LEVEL 108.0 MMOL/L (98-107); CREATININE FOR GFR 1.57 MG/DL (0.55-1.30); GLOMERULAR FILTRATION RATE 35.3 (>39); MAGNESIUM LEVEL 1.6 MG/DL (1.8-2.4); POTASSIUM SERUM 4.4 MMOL/L (3.5-5.1); SODIUM LEVEL 144.0 MMOL/L (136-145)
[2025-06-27 07:01] LABS: CK-MB VALUE MASS 2.3 NG/ML (<3.6)
[2025-06-27 07:02] LABS: CPK CREATINE PHOSPHOKINASE 50.0 U/L (34-145); MB/CK RELATIVE INDEX 4.6 (< OR =4)
[2025-06-27] MEDS: INSULIN LISPRO (NovoLOG) PER UNIT SC SCH (07:30)
[2025-06-27] MEDS: MAG SULF 1GM/100ML (MAG RUN) 1 GM in IV 1 EA IV SCH (07:50)
[2025-06-27] MEDS: amLODIPine 5 MG TAB PO SCH (07:51)
[2025-06-27] MEDS ORDERED: TIZA4CAP PO (10:08)
[2025-06-27] MEDS ORDERED: CALC1CAP31 PO (10:08)
[2025-06-27] MEDS ORDERED: GNPTAB37 PO (10:08)
[2025-06-27] MEDS ORDERED: MIDO2.5T3 PO (10:08)
[2025-06-27] MEDS ORDERED: CINA30TA4 PO (10:08)
[2025-06-27] MEDS ORDERED: ZOCO80TA PO (10:08)
[2025-06-27] MEDS ORDERED: DULA3PEN SQ (10:08)
[2025-06-27] MEDS ORDERED: NEUR300C PO (10:08)
[2025-06-27] MEDS ORDERED: PROC1CRE5 PR (10:08)
[2025-06-27] MEDS ORDERED: FLUT15.820 NARES (10:08)
[2025-06-27] MEDS: amLODIPine 5 MG TAB PO ONE (10:10)
[2025-06-27] MEDS ORDERED: HOME MED LIST COMPLETE! XX SCH (10:10)
[2025-06-27 12:34] VITALS: BP 173/88
[2025-06-27] MEDS: hydrALAZINE 20 MG/ML 1 ML VIAL IV STA (12:34)
[2025-06-27 12:49] LABS: CK-MB VALUE MASS 4.0 NG/ML (<3.6); CPK CREATINE PHOSPHOKINASE 57.0 U/L (34-145); MB/CK RELATIVE INDEX 7.01 (< OR =4)
[2025-06-27 13:09] VITALS: O2SAT 98
[2025-06-27] MEDS ORDERED: AMLO1TAB24 PO (13:43)
[2025-06-27 13:46] VITALS: BP 140/96
[2025-06-27] MEDS: FLUZONE HIGH DOSE (65+) 0.5 ML SYRINGE (25-26) IM.IMMUN ONE (15:12)
[2025-06-27] MEDS ORDERED: INSULIN LISPRO (NovoLOG) PER UNIT SC SCH (21:00)
== END 2025-06-27 15:21 | disposition home or self-care (01) ==
LOC: M ED 20:23 → M ED INP 20:24
PROVIDERS: ADMIT Student in an Organized Health Care Education/Training Program; ATTEND Student in an Organized Health Care Education/Training Program
DX: I16.0 Hypertensive urgency (principal); E11.42 Type 2 diabetes mellitus with diabetic polyneuropathy; E11.22 Type 2 diabetes mellitus with diabetic chronic kidney disease; N18.4 Chronic kidney disease, stage 4 (severe); I13.0 Hypertensive heart and chronic kidney disease with heart failure and stage 1 through stage 4 chronic kidney disease, or unspecified chronic kidney disease; Q60.0 Renal agenesis, unilateral; I50.32 Chronic diastolic (congestive) heart failure; R07.89 Other chest pain; R10.9 Unspecified abdominal pain; E78.5 Hyperlipidemia, unspecified; K21.9 Gastro-esophageal reflux disease without esophagitis; R19.7 Diarrhea, unspecified; M19.90 Unspecified osteoarthritis, unspecified site; Z86.718 Personal history of other venous thrombosis and embolism; Z86.711 Personal history of pulmonary embolism; I25.10 Atherosclerotic heart disease of native coronary artery without angina pectoris; G25.81 Restless legs syndrome; F32.A Depression, unspecified; G47.33 Obstructive sleep apnea (adult) (pediatric); H40.9 Unspecified glaucoma; G43.909 Migraine, unspecified, not intractable, without status migrainosus; M10.9 Gout, unspecified; E55.9 Vitamin D deficiency, unspecified; Z98.84 Bariatric surgery status; Z90.49 Acquired absence of other specified parts of digestive tract; Z79.01 Long term (current) use of anticoagulants; Z79.84 Long term (current) use of oral hypoglycemic drugs; Z79.899 Other long term (current) drug therapy
CPT/HCPCS: 36415; 70450; 71045; 74176; 80047; 80053; 81001; 82550; 82553; 83735; 84484; 85025; 85027; 87086; 87205; 87507; 90662; 93005; 96365; 96366; 96368; 96375; 99285; G0008; G0378; J0131; J0360; J0696; J1920; J3475

== ENCOUNTER → 2025-08-16 | Outpatient (CLI) | payer MEDICARE, MEDICAID ==
[~2025-08-16] MED LIST changes: +CALC1CAP31 PO; +DULA3PEN SQ; +FLUT15.820 NARES; +GNPTAB37 PO; +MIDO2.5T3 PO; +NEUR300C PO; +PROC1CRE5 PR
[2025-08-16 14:02] LABS: ESTIMATED AVERAGE GLUCOSE 154.0 MG/DL (60-110)
== END ==
LOC: M PLALAB 11:58
PROVIDERS: ATTEND Internal Medicine Cardiovascular Disease
DX: E11.9 Type 2 diabetes mellitus without complications (principal); Z79.4 Long term (current) use of insulin